=== PATIENT | male | born 1960 | race African-American/Black ===

== ENCOUNTER 2017-06-03 13:45 | Observation (INO) | payer OTHER ==
--- NOTE | 2017-06-03 14:03 | PDOC ---
History of Present Illness - General History Source: Patient Exam Limitations: No Limitations - History of Present Illness Initial Comments: 06/03/17 14:32 56 year old male, with significant past medical history of HIV( cd4 568), DM, HTN, CKD, who presents to the emergency room complaining of 2 episodes of chest pain over the past couple of days. The left sided chest pain only occurs with exertion and lasts for approximately 5-10minutes with associated tingling down the left arm. His jaw and hands became clammy and he feels nauseous. An episode of chest pain similar to this occurred when the patient was taking a walk 4 days ago. He states that he used to be able to walk a couple of miles daily, but recently he cannot walk half of a block without his chest feeling tight causing him to stop to catch his breath. He reports that his saw Dr. Munroe in October of this year and had a negative stress test. He has a follow up appointment with him on June 16. Denies fever, chills, vomiting. Denies recent illness. Denies recent travel. Denies leg swelling. Allergies: NKDA Infectious Disease: Dr. Vital Wool Carder: Dr. Munroe <Radha Hsu - Last Filed: 06/03/17 15:23> <Arely Jackson - Last Filed: 06/03/17 16:45> - General Chief Complaint: Chest Pain Stated Complaint: CHEST PAIN Time Seen by Provider: 06/03/17 13:58 Past History <Radha Hsu - Last Filed: 06/03/17 15:23> - Past Medical History Anemia: No Asthma: No Cancer: No Cardiac Disorders: No CVA: No COPD: No CHF: No Dementia: No Diabetes: No GI Disorders: Yes (GERD) Disorders: No HTN: Yes Hypercholesterolemia: No Kidney Stones: No Liver Disease: No Seizures: No Thyroid Disease: No - Surgical History Abdominal Surgery: No Appendectomy: No Cardiac Surgery: No Cholecystectomy: No Lung Surgery: No Neurologic Surgery: No Orthopedic Surgery: No - Reproductive History Testicular Surgery: No - Suicide/Smoking/Psychosocial Hx Smoking History: Current every day smoker Have you smoked in the past 12 months: Yes Number of Cigarettes Smoked Daily: 3 'Breaking Loose' booklet given: 06/12/14 Hx Alcohol Use: No Drug/Substance Use Hx: Yes (prev cocaine, mj; currently occas heroin) Substance Use Type: Heroin Hx Substance Use Treatment: Yes <Arely Jackson - Last Filed: 06/03/17 16:45> - Past Medical History Allergies/Adverse Reactions: Allergies Allergy/AdvReac Type Severity Reaction Status Date / Time No Known Allergies Allergy Verified 06/03/17 14:06 Home Medications: Ambulatory Orders Darunavir Ethanolate [Prezista] 800 mg PO DAILY #30 ml 12/16/16 Ritonavir [Norvir] 100 mg NR DAILY #30 cap 12/16/16 Dolutegravir Sodium [Tivicay] 50 mg PO DAILY #30 tablet 04/30/17 Insulin Glargine,Hum.rec.anlog [Lantus Solostar PEN (NF)] 20 units SQ BID Insulin Lispro [Humalog Kwikpen U-100] 10 - 15 unit SQ TID 06/03/17 Lisinopril [Zestril] 2 tab PO DAILY 06/03/17 Review of Systems - Review of Systems Able to Perform ROS?: Yes Comments:: 06/03/17 14:38 GENERAL/CONSTITUTIONAL: No fever or chills. No weakness. HEAD, EYES, EARS, NOSE AND THROAT: No change in vision. No ear pain or discharge. No sore throat. GASTROINTESTINAL: No nausea, vomiting, diarrhea or constipation. GENITOURINARY: No dysuria, frequency, or change in urination. CARDIOVASCULAR:+left sided chest pain, diaphoresis, tingling down left arm, SOB RESPIRATORY: No cough, wheezing, or hemoptysis. MUSCULOSKELETAL: No joint or muscle swelling or pain. No neck or back pain. SKIN: No rash NEUROLOGIC: No headache, vertigo, loss of consciousness, or change in strength/ sensation. ENDOCRINE: No increased thirst. No abnormal weight change. HEMATOLOGIC/LYMPHATIC: No anemia, easy bleeding, or history of blood clots. ALLERGIC/IMMUNOLOGIC: No hives or skin allergy. <Radha Hsu - Last Filed: 06/03/17 15:23> *Physical Exam - Vital Signs Last Vital Signs Temp Pulse Resp BP Pulse Ox 98.8 F 76 17 166/77 96 06/03/17 14:03 06/03/17 14:03 06/03/17 14:03 06/03/17 14:03 06/03/17 14:03 - Physical Exam Comments: 06/03/17 14:39 Constitutional: Awake, alert, oriented. No acute distress. Head: Normocephalic. Atraumatic Eyes: PERRL. EOMI. Conjunctivae are not pale. ENT: Mucous membranes are moist and intact. Posterior pharynx without exudates or erythema. Uvula midline. Neck: Supple. Full ROM. No lymphadenopathy. Cardiovascular: Regular rate. Regular rhythm. S1, S2 regular. Distal pulses are 2+ and symmetric. Pulmonary/Chest: No evidence of respiratory distress. Clear to auscultation bilaterally No wheezing, rales or rhonchi. Abdominal: Soft and non-distended. There is no tenderness. No rebound, guarding or rigidity. No organomegaly. No palpable masses. Good bowel sounds. Back: No CVA tenderness. Musculoskeletal: No edema. No cyanosis. No clubbing. Full range of motion in all extremities. Nocalf tenderness. Radial/pedal pulses are intact and 2+ bilaterally Skin: Skin is warm and dry. No petechiae. No purpura. Neurological: Alert and oriented to person, place, and time. Cranial nerves II -XII are grossly intact. Normal speech. Strength is grossly symmetric. No sensory deficits. Psychiatric: Good eye contact. Normal interaction, affect and behavior. <Radha Hsu - Last Filed: 06/03/17 15:23> Heart Score/ECG Review - History History: Highly suspicious - Electrocardiogram EKG: Non specific repolarization disturbance - Age Age: 45-65 - Risk Factors Risk Factors Heart Score: Yes Hx Hypercholesterolemia, Yes Hx Hypertension, Yes Hx Diabetes Based on the list above the patient has:: >/=3 risk factors or Hx atherosclerotic disease - Troponin Troponin: </= normal limit - Score Heart Score - Total: 6 - ECG Intrepretation Comment:: 06/03/17 14:02 sinus at 69, nl axis, nl interval, t wave flattening diffusely <Arely Jackson - Last Filed: 06/03/17 16:45> ED Treatment Course - LABORATORY CBC & Chemistry Diagram: 06/03/17 14:45 06/03/17 14:45 <Radha Hsu - Last Filed: 06/03/17 15:23> - LABORATORY CBC & Chemistry Diagram: 06/03/17 14:59 06/03/17 14:45 <Arely Jackson - Last Filed: 06/03/17 16:45> Medical Decision Making - Medical Decision Making 06/03/17 15:26 Dr. Ren was paged and agreed to consult. Paged Dr. Vital at 3:30 <Radha Hsu - Last Filed: 06/03/17 15:23> - Medical Decision Making 06/03/17 14:16 a/p: 56yo male with CP -concern for typical angina/acs -trops -ekg -cxr -monitor -call to Dr. Munroe -will need further eval in the hospital 06/03/17 15:[address] Cheatham who will see the patient in consult. 06/03/17 16:15 negative trop. case discussed with Dr. Greene who recommends admission to the hospitalist service. 06/03/17 16:[address] Greene, last CD4 was 316 and viral load was 20,000 06/03/17 16:44 case discussed with [employer] for hospitalist, accepts pt to obs. <Arely Jackson - Last Filed: 06/03/17 16:45> *DC/Admit/Observation/Transfer - Attestations Scribe Attestion: 06/03/17 14:39 Documentation prepared by JW Rivera, acting as durable medical equipment repairer for Arely Jackson DO <Radha Hsu - Last Filed: 06/03/17 15:23> - Discharge Dispostion Admit: Yes - Attestations Physician Attestion: 06/03/17 16:17 I, Dr. Arely Jackson, DO, attest that this document has been prepared under my direction and personally reviewed by me in its entirety. I further attest, that it accurately reflects all work, treatment, procedures and medical decision -making performed by me. <Arely Jackson - Last Filed: 06/03/17 16:45> Diagnosis at time of Disposition: Angina pectoris - Discharge Dispostion Condition at time of disposition: Fair
[2017-06-03 14:06] VITALS: BMI 31.5
[2017-06-03 15:15] LABS: ALBUMIN 3.2 g/dl (3.4-5.0); ANION GAP 10 (8-16); BILIRUBIN,TOTAL 0.1 mg/dL (0.2-1.0); CO2 23 mmol/L (21-32); CREATININE 2.2 mg/dL (0.7-1.3); GLUCOSE,RANDOM 138 mg/dL (74-106); SGPT/ALT 11 U/L (12-78); TOT PROT 7.7 g/dl (6.4-8.2)
[2017-06-03 15:18] LABS: ALK PHOS 96 U/L (45-117); CPK 160 IU/L (39-308); TROPONIN I 0.02 ng/ml (0.00-0.05)
[2017-06-03 15:19] LABS: MAGNESIUM 1.7 mg/dL (1.8-2.4); SGOT/AST 11 U/L (15-37)
[2017-06-03 15:46] LABS: BASOPHIL 0.8 % (0-2.0); EOSINOPHIL 2.5 % (0-4.5); MCH 27.2 pg (25.7-33.7); MCHC 33.5 g/dl (32.0-35.9); MEAN PLT VOLUME 7.7 fl (7.5-11.1); NEUTROPHILS 52.5 % (42.8-82.8); PLATELET COUNT 232 K/MM3 (134-434); RDW 15.9 % (11.9-15.9); WHITE BLOOD COUNT 9.9 K/mm3 (4.0-10.0)
[2017-06-03 16:42] LABS: INR 1.03 (0.82-1.09); PROTHROMBIN TIME (PATIENT) 11.6 SEC (9.98-11.88)
[2017-06-03 16:45] LABS: ACTIVATED PTT 29.7 SECONDS (26.9-34.4)
--- NOTE | 2017-06-03 17:01 | CONSULT ---
Consultation: REQUESTING PROVIDER: CONSULT REQUEST: We have been asked to medically evaluate this patient for ( specify). HISTORY OF PRESENT ILLNESS: 56 year old male, with significant past medical history of HIV( cd4 568), DM, HTN, CKD, who presents to the emergency room complaining of 2 episodes of chest pain over the past couple of days. The left sided chest pain only occurs with exertion and lasts for approximately 5-10minutes with associated tingling down the left arm. His jaw and hands became clammy and he feels nauseous. An episode of chest pain similar to this occurred when the patient was taking a walk 4 days ago. He states that he used to be able to walk a couple of miles daily, but recently he cannot walk half of a block without his chest feeling tight causing him to stop to catch his breath. He reports that his saw Dr. Munroe in October of this year and had a negative stress test. He has a follow up appointment with him on June 16. Denies fever, chills, vomiting. Denies recent illness. Denies recent travel. Denies leg swelling. Allergies: NKDA Infectious Disease: Dr. Vital Senior Planning Analyst: Dr. Munroe REVIEW OF SYSTEMS: CONSTITUTIONAL: Absent: fever, chills, diaphoresis, generalized weakness, malaise, loss of appetite, weight change HEENT: Absent: rhinorrhea, nasal congestion, throat pain, throat swelling, difficulty swallowing, mouth swelling, ear pain, eye pain, visual changes CARDIOVASCULAR: Absent: chest pain, syncope, palpitations, irregular heart rate, lightheadedness , peripheral edema RESPIRATORY: Absent: cough, shortness of breath, dyspnea with exertion, orthopnea, wheezing, stridor, hemoptysis GASTROINTESTINAL: Absent: abdominal pain, abdominal distension, nausea, vomiting, diarrhea, constipation, melena, hematochezia GENITOURINARY: Absent: dysuria, frequency, urgency, hesitancy, hematuria, flank pain, genital pain MUSCULOSKELETAL: Absent: myalgia, arthralgia, joint swelling, back pain, neck pain SKIN: Absent: rash, itching, pallor HEMATOLOGIC/IMMUNOLOGIC: Absent: easy bleeding, easy bruising, lymphadenopathy, frequent infections ENDOCRINE: Absent: unexplained weight gain, unexplained weight loss, heat intolerance, cold intolerance NEUROLOGIC: Absent: headache, focal weakness or paresthesias, dizziness, unsteady gait, seizure, mental status changes, bladder or bowel incontinence PSYCHIATRIC: Absent: anxiety, depression, suicidal or homicidal ideation, hallucinations. PHYSICAL EXAMINATION Vital Signs - 24 hr 06/03/17 06/03/17 14:03 15:33 Temperature 98.8 F Pulse Rate 76 Pulse Rate [ 68 Apical] Respiratory 17 17 Rate Blood Pressure 166/77 Blood Pressure 144/77 [Right Arm] O2 Sat by Pulse 96 98 Oximetry (%) GENERAL: Awake, alert, and fully oriented, in no acute distress. HEAD: Normal with no signs of trauma. EYES: , sclera anicteric, conjunctiva clear. No lid lag. EARS, NOSE, THROAT: Moist mucous membranes. LUNGS: Breath sounds equal, clear to auscultation bilaterally. No wheezes, and no crackles. No accessory muscle use. HEART: Regular rate and rhythm, normal S1 and S2 without murmur, rub or gallop. ABDOMEN: Soft, nontender, not distended, normoactive bowel sounds, no guarding, no rebound, no masses. LOWER EXTREMITIES: 2+ pulses, warm, well-perfused. No calf tenderness. +1 peripheral edema. NEUROLOGICAL: good mentation PSYCHIATRIC: Cooperative. Good eye contact. Appropriate mood and affect. SKIN: Warm, dry, no rashes or lesions noted. Laboratory Results - last 24 hr 06/03/17 06/03/17 06/03/17 14:45 14:45 14:45 WBC Cancelled Corrected WBC (auto) Cancelled RBC Cancelled Hgb Cancelled Hct Cancelled MCV Cancelled MCH Cancelled MCHC Cancelled RDW Cancelled Plt Count Cancelled MPV Cancelled Neutrophils % Cancelled Lymphocytes % Cancelled Monocytes % Cancelled Eosinophils % Cancelled Basophils % Cancelled Platelet Estimate Cancelled Platelet Comment Cancelled RBC Morphology Cancelled PT with INR Cancelled INR Cancelled PTT (Actin FS) Cancelled Sodium 141 Potassium 4.3 D Chloride 108 H Carbon Dioxide 23 Anion Gap 10 BUN 35 H D Creatinine 2.2 H Creat Clearance w eGFR 31.01 Random Glucose 138 H Calcium 8.0 L Magnesium 1.7 L Total Bilirubin 0.1 L D AST 11 L ALT 11 L D Alkaline Phosphatase 96 Creatine Kinase 160 Creatine Kinase Index 0.7 CK-MB (CK-2) 1.201 Troponin I 0.02 B-Natriuretic Peptide Total Protein 7.7 Albumin 3.2 L Lipase 64 L 10/06/03/17 06/03/17 14:45 14:59 16:10 WBC 9.9 Corrected WBC (auto) RBC 4.30 Hgb 11.7 Hct 34.8 L MCV 81.0 MCH 27.2 MCHC 33.5 RDW 15.9 Plt Count 232 MPV 7.7 Neutrophils % 52.5 Lymphocytes % 36.2 Monocytes % 8.0 Eosinophils % 2.5 Basophils % 0.8 Platelet Estimate Platelet Comment RBC Morphology PT with INR 11.60 INR 1.03 PTT (Actin FS) 29.7 Sodium Potassium Chloride Carbon Dioxide Anion Gap BUN Creatinine Creat Clearance w eGFR Random Glucose Calcium Magnesium Total Bilirubin AST ALT Alkaline Phosphatase Creatine Kinase Creatine Kinase Index CK-MB (CK-2) Troponin I B-Natriuretic Peptide 5507.34 H Total Protein Albumin Lipase CBC, BMP 06/03/17 14:59 06/03/17 14:45 ASSESSMENT/PLAN: HTN HIV DM CKD ACD: heart score of 6, follow primary team recommendations HIV + will continue home meds (patient will bring his home meds) Dispo: We will continue to follow the patient. Thank you for this consultative opportunity.
--- NOTE | 2017-06-03 17:22 | HP ---
CHIEF COMPLAINT: chest pain PCP: Dr. Vital HISTORY OF PRESENT ILLNESS: This is a 56 year old male with PMHx of CKD, HIV (on haart therapy), HTN, DM, who presented to the ED with 1 year of gas pain and heartburn which has worsened over the past 2 months. The patient reports that he has had heart burn for 1 year which resolves with Tums and rest. He then states in January he started taking Harvoni and noticed generalized edema. He completed the course and the edema has improved. He states about 2 months ago he started having left intermitted chest pain with left arm tingling (no numbness), and right jaw pain. He states the jaw pain was so severe that he would have to remove his dentures. He states that he gets the chest pain daily and that he needs to stop and rest for it to go away. He denies any dizziness, lightheadedness, headache, palpitations, orthopnea. He reports a 30lb weight gain in 2 months. ER course was notable for: (1) Cr 2.2, Mg 1.7 (2) BNP 5507 (3) Chest x-ray with no acute pathology. Heart size normal Recent Travel: PAST MEDICAL HISTORY: As above PAST SURGICAL HISTORY: Denies Social History: Smokin-4 cigarettes/day Alcohol: Denies Drugs: Heroin, last use 5 months ago (sniffing, has not had IV heroin use since he was "a teenager") Family History: Allergies No Known Allergies Allergy (Verified 06/03/17 14:06) HOME MEDICATIONS: Home Medications Medication Instructions Recorded Darunavir Ethanolate [Prezista] 800 mg PO DAILY #30 ml 12/16/16 Ritonavir [Norvir] 100 mg NR DAILY #30 cap 12/16/16 Dolutegravir Sodium [Tivicay] 50 mg PO DAILY #30 tablet 04/30/17 Insulin Glargine,Hum.rec.anlog 20 units SQ BID 06/03/17 [Lantus Solostar PEN (NF)] Insulin Lispro [Humalog Kwikpen 10 - 15 unit SQ TID 06/03/17 U-100] Lisinopril [Zestril] 2 tab PO DAILY 06/03/17 REVIEW OF SYSTEMS CONSTITUTIONAL: Absent: fever, chills, diaphoresis, generalized weakness, malaise, loss of appetite, weight change HEENT: Absent: rhinorrhea, nasal congestion, throat pain, throat swelling, difficulty swallowing, mouth swelling, ear pain, eye pain, visual changes CARDIOVASCULAR: Chest pain x2 months ago. Intermittent, radiating to left arm and right jaw. Absent: syncope, palpitations, irregular heart rate, lightheadedness, peripheral edema RESPIRATORY: Absent: cough, shortness of breath, orthopnea, wheezing, stridor, hemoptysis GASTROINTESTINAL:Absent: abdominal pain, abdominal distension, nausea, vomiting , diarrhea, constipation, melena, hematochezia GENITOURINARY: Absent: dysuria, frequency, urgency, hesitancy, hematuria, flank pain, genital pain MUSCULOSKELETAL: Absent: myalgia, arthralgia, joint swelling, back pain, neck pain SKIN: Absent: rash, itching, pallor HEMATOLOGIC/IMMUNOLOGIC: Absent: easy bleeding, easy bruising, lymphadenopathy, frequent infections ENDOCRINE: 30 lb weight gain in 2 months. Absent: unexplained weight loss, heat intolerance, cold intolerance NEUROLOGIC: Absent: headache, focal weakness or paresthesias, dizziness, unsteady gait, seizure, mental status changes, bladder or bowel incontinence PSYCHIATRIC: Absent: anxiety, depression, suicidal or homicidal ideation, hallucinations. PHYSICAL EXAMINATION Vital Signs - 24 hr 06/03/17 06/03/17 14:03 15:33 Temperature 98.8 F Pulse Rate 76 Pulse Rate [ 68 Apical] Respiratory 17 17 Rate Blood Pressure 166/77 Blood Pressure 144/77 [Right Arm] O2 Sat by Pulse 96 98 Oximetry (%) GENERAL: Awake, alert, and fully oriented, in no acute distress. HEAD: Normal with no signs of trauma. EYES: Pupils equal, round and reactive to light, extraocular movements intact, sclera anicteric, conjunctiva clear. No lid lag. EARS, NOSE, THROAT: Ears normal, nares patent, oropharynx clear without exudates. Moist mucous membranes. NECK: Normal range of motion, supple without lymphadenopathy, or masses. LUNGS: Breath sounds equal, clear to auscultation bilaterally. No wheezes, and no crackles. No accessory muscle use. HEART: Regular rate and rhythm, normal S1 and S2 without murmur, rub or gallop. ABDOMEN: Soft, non-tender, not-distended, normoactive bowel sounds MUSCULOSKELETAL: Normal range of motion at all joints. No bony deformities or tenderness. No CVA tenderness. UPPER EXTREMITIES: 2+ pulses, warm, well-perfused. No cyanosis. No clubbing. No peripheral edema. LOWER EXTREMITIES: Multiple 2-4 cm scabs (patient reports getting hit by rocks from his acetone button paster). 2+ pulses, warm, well-perfused. No calf tenderness. No peripheral edema. NEUROLOGICAL: Cranial nerves II-XII intact. Normal speech. Normal gait. PSYCHIATRIC: Cooperative. Good eye contact. Appropriate mood and affect. SKIN: Warm, dry, normal turgor, no rashes or lesions noted, normal capillary refill. CBCD WBC 9.9 K/mm3 (4.0-10.0) 06/03/17 14:59 RBC 4.30 M/mm3 (4.00-5.60) 06/03/17 14:59 Hgb 11.7 GM/dL (11.7-16.9) 06/03/17 14:59 Hct 34.8 % (35.4-49) L 06/03/17 14:59 MCV 81.0 fl (80-96) 06/03/17 14:59 MCHC 33.5 g/dl (32.0-35.9) 06/03/17 14:59 RDW 15.9 % (11.9-15.9) 06/03/17 14:59 Plt Count 232 K/MM3 (134-434) 06/03/17 14:59 MPV 7.7 fl (7.5-11.1) 06/03/17 14:59 CMP Sodium 141 mmol/L (136-145) 06/03/17 14:45 Potassium 4.3 mmol/L (3.5-5.1) D 06/03/17 14:45 Chloride 108 mmol/L (98-107) H 06/03/17 14:45 Carbon Dioxide 23 mmol/L (21-32) 06/03/17 14:45 Anion Gap 10 (8-16) 06/03/17 14:45 BUN 35 mg/dL (7-18) H D 06/03/17 14:45 Creatinine 2.2 mg/dL (0.7-1.3) H 06/03/17 14:45 Creat Clearance w eGFR 31.01 (>60) 06/03/17 14:45 Random Glucose 138 mg/dL (74-106) H 06/03/17 14:45 Calcium 8.0 mg/dL (8.5-10.1) L 06/03/17 14:45 Total Bilirubin 0.1 mg/dL (0.2-1.0) L D 06/03/17 14:45 AST 11 U/L (15-37) L 06/03/17 14:45 ALT 11 U/L (12-78) L D 06/03/17 14:45 Alkaline Phosphatase 96 U/L (45-117) 06/03/17 14:45 Total Protein 7.7 g/dl (6.4-8.2) 06/03/17 14:45 Albumin 3.2 g/dl (3.4-5.0) L 06/03/17 14:45 CARDIAC ENZYMES Creatine Kinase 160 IU/L (39-308) 06/03/17 14:45 Troponin I 0.02 ng/ml (0.00-0.05) 06/03/17 14:45 Assessment: This is a 56 year old male with PMHx of CKD, HIV (on haart therapy) , HTN, DM, who presented to the ED with 1 year of gas pain and heartburn which has worsened over the past 2 months. Plan: 1) Cardiology: Chest pain - Duration of chest pain 1 year, with increase in symptoms (L arm tingling and right jaw pain) starting 2 months ago - Trop x1 negative, f/u 2 more - EKG reviewed - F/u ECHO - F/u cardiology consult HTN - Continue Lisinopril Possible new onset diastolic heart failure - Increase in weight 30lbs in 2 months with lower extremity edema - Elevated BNP - Chest x-ray with normal size heart - F/u ECHO 2) : CKD - At baseline 3) ID: HIV - Continue HAART HCV - Completed course of Harvoni 04/2017 4) Endocrine: DM - BGM ACHS - Glargine 20u sq bid - Humalog 10u sq tid 5) F/E/N: - Monitor electrolytes - Sodium controlled, diabetic diet 6) Prophylaxis: - Heparin 5,000u sq tid 7) Dispo: - Once condition improves CODE STATUS: FULL CODE Visit type - Emergency Visit Emergency Visit: Yes ED Registration Date: 06/03/17 Care time: The patient presented to the Emergency Department on the above date and was hospitalized for further evaluation of their emergent condition. - New Patient This patient is new to me today: Yes Date on this admission: 06/03/17 - Critical Care Critical Care patient: No
--- NOTE | 2017-06-03 17:39 | PN ---
Teaching Attending Note Name of Resident: Leobardo Lewis ATTENDING PHYSICIAN STATEMENT I saw and evaluated the patient. I reviewed the resident's note and discussed the case with the resident. I agree with the resident's findings and plan as documented. SUBJECTIVE: sent to ED from [facility] with exertional CP asked to see for HIV disease currently pain free he is still smoking 4 cig a day OBJECTIVE: Vital Signs Period Temp Pulse Resp BP Sys/[place] Pulse Ox Last 24 Hr 98.8 F 68-76 17-17 144-166/77-77 96-98 cor-rrr lungs clear abd soft,nt ext tracke edema CBC, BMP 06/03/17 14:59 06/03/17 14:45 ASSESSMENT AND PLAN: chest pain/cad- per cardiology stable HIV- cd4 568, vl 50 on prezista/norvir/tivicay- he took his meds this am , familly will bring his meds in for tomorrow CKD hx hep C
[2017-06-03] MEDS ORDERED: MAGNESIUM OXIDE 400 MG TABLET (FP) PO ONE (18:11)
[2017-06-03] MEDS ORDERED: MAGNESIUM OXIDE 400 MG TABLET (FP) ONE (19:20)
[2017-06-03 21:26] LABS: TROPONIN I 0.02 ng/ml (0.00-0.05)
[2017-06-03] MEDS ORDERED: HEPARIN NA (PORCINE) 5,000 UNITS/ML 1ML VIAL SQ SCH (22:00)
[2017-06-03] MEDS ORDERED: INSULIN LISPRO 10 UNIT SQ SCH (22:00)
[2017-06-03] MEDS ORDERED: PATIENT'S OWN MEDICATION (NON-FORMULARY) (Insulin Glargine,Hum.Rec.Anlog 20 UNITS) SQ SCH (22:00)
[2017-06-03] MEDS ORDERED: HEPARIN NA (PORCINE) 5,000 UNITS/ML 1ML VIAL ONE (23:04)
[2017-06-03] MEDS: INSULIN DETEMIR 100 UNITS/ML MDV SQ SCH ×2 (23:13→23:16)
[2017-06-04] MEDS ORDERED: INSULIN (NOVOLOG) ASPART 100 UNITS/ML 10ML VIAL SQ SCH (07:00)
[2017-06-04 07:50] LABS: MCH 26.7 pg (25.7-33.7); MEAN PLT VOLUME 7.4 fl (7.5-11.1); PLATELET COUNT 217 K/MM3 (134-434); RDW 16.1 % (11.9-15.9); WHITE BLOOD COUNT 9.3 K/mm3 (4.0-10.0)
[2017-06-04] MEDS ORDERED: RITONAVIR 100 MG TABLET PO SCH (08:00)
[2017-06-04] MEDS ORDERED: DARUNAVIR ETHANOLATE 800 MG TAB PO SCH (08:00)
[2017-06-04 08:49] LABS: ALK PHOS 92 U/L (45-117); ANION GAP 5 (8-16); BILIRUBIN,TOTAL 0.2 mg/dL (0.2-1.0); CHOLESTEROL 196 mg/dL (50-200); CO2 25 mmol/L (21-32); GLUCOSE,RANDOM 157 mg/dL (74-106); MAGNESIUM 1.8 mg/dL (1.8-2.4); PHOSPHOROUS 3.4 mg/dL (2.5-4.9); SGOT/AST 10 U/L (15-37); SGPT/ALT 14 U/L (12-78); THYROID STIMULATING HORMONE 0.94 uIU/ml (0.358-3.74); TOT PROT 7.1 g/dl (6.4-8.2)
[2017-06-04] MEDS ORDERED: LISINOPRIL 10 MG TABLET (FP) PO SCH (10:00)
[2017-06-04] MEDS ORDERED: PATIENT'S OWN MEDICATION (NON-FORMULARY) (Ritonavir [Norvir] 100 MG) NR SCH (10:00)
[2017-06-04] MEDS ORDERED: DOLUTEGRAVIR SODIUM 50 MG TABLET PO SCH (10:00)
[2017-06-04] MEDS ORDERED: DARUNAVIR ETHANOLATE 100 MG/ML BULK BOTTLE PO SCH (10:00)
[2017-06-04 10:18] LABS: CPK 124 IU/L (39-308); TROPONIN I 0.02 ng/ml (0.00-0.05)
--- NOTE | 2017-06-04 10:37 | EKG ---
Test Reason : Blood Pressure : / mmHG Vent. Rate : 069 BPM Atrial Rate : 069 BPM P-R Int : 156 ms QRS Dur : 086 ms QT Int : 460 ms P-R-T Axes : 076 020 021 degrees QTc Int : 492 ms NORMAL SINUS RHYTHM POSSIBLE LEFT ATRIAL ENLARGEMENT NONSPECIFIC T WAVE ABNORMALITY PROLONGED QT ABNORMAL ECG WHEN COMPARED WITH ECG OF 03-JUN-2017 11:52, NO SIGNIFICANT CHANGE WAS FOUND Confirmed by MAEVE ROJAS, HERLINDA ([id number]) on 06/04/2017 10:37:07 AM Referred By: Confirmed By:HERLINDA MCFARLANE MD
--- NOTE | 2017-06-04 13:54 | CON.CARD ---
Cardiology Consult (text) - Consultation Consultation Note: cc: cp hpi: 56 m hx hiv, dm, htn, ckd here with cp. Pain is left side of chest, burning. Happens with exertion usually. Has had 2 episodes past week or so but has also had these sxs earlier this year as well. Mild sob/fatigue when walking up hills. No palps, dizzy, loc, pnd, orthopnea, le edema. Has seen me in office for cardio eval earlier this year. pmh: per hpi psh: nc social: +tob, +occ heroine, ex cocaine fam: no premature cad, scd ros: per hpi; no nvd, fever, cough, nasal congestion, wt loss, gib, dysuria, hematuria, mcclure, vision changes meds: Home Medications Medication Instructions Recorded Darunavir Ethanolate [Prezista] 800 mg PO DAILY #30 ml 12/16/16 Ritonavir [Norvir] 100 mg NR DAILY #30 cap 12/16/16 Dolutegravir Sodium [Tivicay] 50 mg PO DAILY #30 tablet 04/30/17 Insulin Glargine,Hum.rec.anlog 20 units SQ BID 06/03/17 [Lantus Solostar PEN (NF)] Insulin Lispro [Humalog Kwikpen 10 - 15 unit SQ TID 06/03/17 U-100] Lisinopril [Zestril] 2 tab PO DAILY 06/03/17 pe: Vital Signs Period Temp Pulse Resp BP Sys/[place] Pulse Ox Last 24 Hr 98.2 F-98.7 F 66-86 14-19 144-152/74-93 95-98 nad no jvd rrr s1s2 no mrg cta bl nl eff aaox3 no le e/c/c no jaundice diaphoresis +dp pt no carotid bruits abd nt nd pos bs Laboratory Last Values WBC 9.3 K/mm3 (4.0-10.0) 06/04/17 06:34 Corrected WBC (auto) Cancelled 06/03/17 14:45 RBC 4.25 M/mm3 (4.00-5.60) 06/04/17 06:34 Hgb 11.3 GM/dL (11.7-16.9) L 06/04/17 06:34 Hct 34.4 % (35.4-49) L 06/04/17 06:34 MCV 81.0 fl (80-96) 06/04/17 06:34 MCH 26.7 pg (25.7-33.7) 06/04/17 06:34 MCHC 33.0 g/dl (32.0-35.9) 06/04/17 06:34 RDW 16.1 % (11.9-15.9) H 06/04/17 06:34 Plt Count 217 K/MM3 (134-434) 06/04/17 06:34 MPV 7.4 fl (7.5-11.1) L 06/04/17 06:34 Neutrophils % 52.5 % (42.8-82.8) 06/03/17 14:59 Lymphocytes % 36.2 % (8-40) 06/03/17 14:59 Monocytes % 8.0 % (3.8-10.2) 06/03/17 14:59 Eosinophils % 2.5 % (0-4.5) 06/03/17 14:59 Basophils % 0.8 % (0-2.0) 06/03/17 14:59 Platelet Estimate Cancelled 06/03/17 14:45 Platelet Comment Cancelled 06/03/17 14:45 Platelet Comment Cancelled 06/03/17 14:45 RBC Morphology Cancelled 06/03/17 14:45 PT with INR 11.60 SEC (9.98-11.88) 06/03/17 16:10 INR 1.03 (0.82-1.09) 06/03/17 16:10 PTT (Actin FS) 29.7 SECONDS (26.9-34.4) 06/03/17 16:10 Sodium 139 mmol/L (136-145) 06/04/17 06:34 Potassium 4.1 mmol/L (3.5-5.1) 06/04/17 06:34 Chloride 109 mmol/L (98-107) H 06/04/17 06:34 Carbon Dioxide 25 mmol/L (21-32) 06/04/17 06:34 Anion Gap 5 (8-16) L 06/04/17 06:34 BUN 34 mg/dL (7-18) H 06/04/17 06:34 Creatinine 2.0 mg/dL (0.7-1.3) H 06/04/17 06:34 Creat Clearance w eGFR 34.61 (>60) 06/04/17 06:34 Random Glucose 157 mg/dL (74-106) H 06/04/17 06:34 Hemoglobin A1c % 9.1 % (4.8-6.0) H D 06/04/17 06:00 Calcium 8.0 mg/dL (8.5-10.1) L 06/04/17 06:34 Phosphorus 3.4 mg/dL (2.5-4.9) 06/04/17 06:34 Magnesium 1.8 mg/dL (1.8-2.4) 06/04/17 06:34 Total Bilirubin 0.2 mg/dL (0.2-1.0) D 06/04/17 06:34 AST 10 U/L (15-37) L 06/04/17 06:34 ALT 14 U/L (12-78) D 06/04/17 06:34 Alkaline Phosphatase 92 U/L (45-117) 06/04/17 06:34 Creatine Kinase 124 IU/L (39-308) 06/04/17 06:34 Creatine Kinase Index 0.7 % (0.0-5.0) 06/03/17 14:45 CK-MB (CK-2) 1.201 ng/mL (0.5-3.6) 06/03/17 14:45 Troponin I 0.02 ng/ml (0.00-0.05) 06/04/17 06:34 B-Natriuretic Peptide 5507.34 pg/ml (5-125) H 06/03/17 14:45 Total Protein 7.1 g/dl (6.4-8.2) 06/04/17 06:34 Albumin 3.0 g/dl (3.4-5.0) L 06/04/17 06:34 Triglycerides 467 mg/dL (35-160) H D 06/04/17 06:34 Cholesterol 196 mg/dL (50-200) D 06/04/17 06:34 Total LDL Cholesterol 95 mg/dL (5-100) D 06/04/17 06:34 HDL Cholesterol 28 mg/dL (40-60) L D 06/04/17 06:34 Lipase 64 U/L (73-393) L 06/03/17 14:45 TSH 0.94 uIU/ml (0.358-3.74) D 06/04/17 06:34 cxr: clear lungs ecg 06/03/17: sr, nl intervals, nonspec tw changes, no st changes mibi 05/2017: no ischemia, mod lve, lvef 33% echo 05/2017: mod lve, mild dec lvef, global hk, nl rv, mild mr, mild lae, a/p: 56 m hx hiv, dm, htn, ckd here with cp. cp: -ce's neg x3, no ischemic ecg changes, no signs acs -nuclear stress test today shows no ischemia htn: -cont amanda-i ckd: -cr at baseline chronic syst chf: -echo shows mildly reduced lvef -no signs chf -cont amanda-i -outpt f/u tob use, drug use: -cessation discussed
--- NOTE | 2017-06-04 14:35 | DS ---
Physical Examination Vital Signs: Vital Signs Temperature 98.2 F 06/03/17 20:58 Pulse Rate 77 06/04/17 13:26 Respiratory Rate 16 06/04/17 13:26 Blood Pressure 152/93 06/04/17 13:26 O2 Sat by Pulse Oximetry (%) 97 06/04/17 13:26 Labs: CBC, BMP 06/04/17 06:34 06/04/17 06:34 Discharge Summary Reason For Visit: CHEST PAIN Current Active Problems Angina pectoris (Acute) Chest pain (Acute) Chronic kidney disease (Chronic) Diabetes 1.5, managed as type 2 (Chronic) HIV (human immunodeficiency virus infection) (Chronic) HTN (hypertension) (Chronic 06/13/14) Condition: Improved - Instructions Diet, Activity, Other Instructions: Please return to the ED with new, persistent, or worsening symptoms. Please follow-up with providers as indicated. Referrals: Sameer Vital MD [Staff Physician] - (Please follow-up with infectious disease within 1 week. ) Valeriano Munroe MD [Staff Physician] - (Please follow-up with cardiology, Dr. Munroe, within 1 week for further management of your chronic systolic heart failure) Juventino Campuzano MD [Staff Physician] - (Please follow-up with nephrology for management of your chronic kidney disease) Disposition: HOME - Home Medications Comprehensive Discharge Medication List: Ambulatory Orders Darunavir Ethanolate [Prezista] 800 mg PO DAILY #30 ml 12/16/16 Dolutegravir Sodium [Tivicay] 50 mg PO DAILY #30 tablet 04/30/17 Insulin Glargine,Hum.rec.anlog [Lantus Solostar PEN -] 20 units SQ BID 06/03/17 Insulin Lispro [Humalog Kwikpen U-100] 10 - 15 unit SQ TID 06/03/17 Lisinopril [Zestril] 2 tab PO DAILY 06/03/17 Ritonavir [Norvir] 100 mg PO DAILY #30 cap 06/04/17
[2017-06-04 14:53] VITALS: BP 148/89; PULSE 72; TEMP 98.9
== END 2017-06-04 15:15 | disposition home or self-care (01) ==
LOC: JER 13:45 → JERBED 16:45 → UNDODISOB 06-04 15:15
PROVIDERS: ADMIT Internal Medicine; ATTEND Registered Nurse
PROC: 3E013VG Introduction of Insulin into Subcutaneous Tissue, Percutaneous Approach (ICD-10-PCS; principal; 2017-06-03)
PROC: 3E013GC Introduction of Other Therapeutic Substance into Subcutaneous Tissue, Percutaneous Approach (ICD-10-PCS; 2017-06-03)
DX: I20.8 Other forms of angina pectoris (principal); R07.9 Chest pain, unspecified; I12.9 Hypertensive chronic kidney disease with stage 1 through stage 4 chronic kidney disease, or unspecified chronic kidney disease; E11.22 Type 2 diabetes mellitus with diabetic chronic kidney disease; F17.210 Nicotine dependence, cigarettes, uncomplicated; N18.9 Chronic kidney disease, unspecified; Z79.4 Long term (current) use of insulin; Z21 Asymptomatic human immunodeficiency virus [HIV] infection status; K21.9 Gastro-esophageal reflux disease without esophagitis
CPT/HCPCS: 36415; 71010-TC; 78452-TC; 80053; 80061; 82550; 82553; 83036; 83690; 83721; 83735; 83880; 84100; 84443; 84484; 85025; 85027; 85610; 85730; 93005; 93010; 93017; 93306-TC; 96372; 99285-25; A9502; G0378; G0463-25; J1644

== ENCOUNTER 2017-07-05 00:31 | Inpatient (IN) | payer OTHER ==
--- NOTE | 2017-07-05 00:55 | PDOC ---
Attending Attestation - Resident Resident Name: Grecia Shirley - ED Attending Attestation I have performed the following: I have examined & evaluated the patient, The case was reviewed & discussed with the resident, I agree w/resident's findings & plan, Exceptions are as noted - HPI HPI: 07/05/17 03:12 The patient is a 56 year old male with history of hypertension, hyperlipidemia, DM, CKD, HIV on HAART, CHF w EF 49.5%, brought in by EMS for respiratory distress. Per EMS and the patient's friend at bedside, the patient had been experiencing worsening shortness of breath and SAMUELS with associated wheezing for the past few days. Today his breathing became significantly worse, prompting him to activate EMS. Per EMS, the patient's condition acutely worsened en route to the hospital. He was noted to have bilateral wheezes and poor aeration. However, attempts to place pt on CPAP en route were unsuccessful due to pt becoming agitated and altered. Upon arrival to ER, pt was obtunded, breathing agonally. He became unresponsive shortly after being transferred to [facility]. Pulse could not be palpated, and chest compressions were initiated. Pt was resuscitated per ACLS protocol for approximately 5 minutes, receiving epi x 2, bicarb x 2. First pulse check revealed PEA arrest. During this time, pt was intubated by DL, with placement of 7.5 ETT. Confirmation with direct visualization, color capnography, and auscultation. Second pulse check showed organized rhythm on monitor with palpable carotid pulses. EKG done at this time revealed atrial fibrillation. No ST elevations or depressions. Pt was placed on ventilator and given nebulizers and steroids. CXR was obtained, revealing diffuse patchy infiltrates. Vitals at this time showed hypertension with BP 160s systolic, HR 80s, satting 100% on ventilator. Pt was given lasix 40mg IV for pulmonary edema. PEEP 10 on vent. Nitro gtt held due to tenuous BP. - Physicial Exam PE: 07/05/17 03:18 "GENERAL: Unresponsive. HEAD: No signs of trauma EYES: PERRLA, sclera anicteric, conjunctiva clear ENT: Auricles normal inspection, nares patent, oropharynx clear without exudates. Moist mucosa NECK: Nontender, no stepoffs, Normal ROM, supple, no lymphadenopathy, JVD, or masses LUNGS: +B/l wheezes, rales. HEART: Regular rate and rhythm, normal S1 and S2, no murmurs, rubs or gallops ABDOMEN: Soft, normoactive bowel sounds. No guarding, no rebound. No masses EXTREMITIES: Normal range of motion, no edema. No clubbing or cyanosis. No cords, erythema, or tenderness NEUROLOGICAL: Unable to assess secondary to nonresponsiveness. SKIN: Warm, Dry, normal turgor, no rashes or lesions noted. " - Medical Decision Making 07/05/17 03:18 56 M who presents to ER with respiratory failure followed by cardiac arrest. Exam and chest X ray suggestive of acute pulmonary edema as etiology of respiratory failure. Also consider infectious process such as multifocal PNA or COPD exacerbation, as pt is daily smoker. - Labs - CXR - Trend gases on vent - Diuresis, PEEP, nitro gtt PRN for pulm edema - Abx for empiric PNA coverage - Hyperventilation for acidosis - propofol gtt for sedation - Admit ICU
[2017-07-05 01:15] LABS: MCH 27.4 pg (25.7-33.7); MEAN CELL VOLUME 88.6 fl (80-96); MEAN PLT VOLUME 7.9 fl (7.5-11.1); PLATELET COUNT 277 K/MM3 (134-434); RDW 16.8 % (11.9-15.9); WHITE BLOOD COUNT 26.4 K/mm3 (4.0-10.0)
[2017-07-05] MEDS ORDERED: ACETAMINOPHEN 325 MG TABLET (FP) ONE (01:15)
[2017-07-05] MEDS ORDERED: PROPOFOL 1,000,000 MCG/100 ML VIAL ONE ×3 (01:23→15:03)
[2017-07-05 01:27] LABS: VENOUS BLOOD GAS HCO3 15.6 meq/L (19-25)
[2017-07-05 01:28] LABS: VENOUS PH 6.98 (7.32-7.42)
[2017-07-05 01:28] LABS: INR 1.07 (0.82-1.09); PROTHROMBIN TIME (PATIENT) 12.1 SEC (9.98-11.88)
[2017-07-05 01:30] LABS: ACTIVATED PTT 20.4 SECONDS (26.9-34.4)
--- NOTE | 2017-07-05 01:31 | PDOC ---
History of Present Illness - General Stated Complaint: RESPIRATORY DISTRESS Time Seen by Provider: 07/05/17 00:47 History Source: EMS, Family Exam Limitations: Clinical Condition - History of Present Illness Initial Comments: This is a 56 YOM with h/o HIV on HAART, DM, CKD, and HTN who was BIBA for respiratory distress and who goes into cardiopulmonary arrest shortly after arrival to the ED. On speaking with his family members, they note that he has been short of breath for the past couple of months and this was particularly bad today, worsening throughout the day, with dyspnea on exertion and wheezing. EMS attempted to put him on BiPAP en route but the patient was agitated and this was not successful. Past History - Past Medical History Allergies/Adverse Reactions: Allergies Allergy/AdvReac Type Severity Reaction Status Date / Time No Known Allergies Allergy Verified 07/05/17 01:49 Review of Systems - Review of Systems Able to Perform ROS?: No (clinical acuity) *Physical Exam - Vital Signs Last Vital Signs Temp Pulse Resp BP Pulse Ox 98.2 F 82 20 152/87 100 07/05/17 00:31 07/05/17 02:17 07/05/17 02:31 07/05/17 02:17 07/05/17 02:17 - Physical Exam General Appearance: Yes: Nourished, Severe Distress, Other (initially patient struggling to breath, subsequently patient unconscious and not breathing) HEENT: positive: EOMI Neck: positive: Trachea midline, Supple Respiratory/Chest: positive: Decreased Breath Sounds, Crackles, Wheezing, Other (severe respiratory distress) Cardiovascular: positive: Other (pulses not palpable after patient loses consciousness) Gastrointestinal/Abdominal: positive: Soft, Protuberent Male Genitalia: positive: other (left groin with verrucous lesion to inguinal crease) Musculoskeletal: positive: Normal Inspection Extremity: positive: Normal Capillary Refill, Normal Inspection. negative: Normal Range of Motion, Cyanosis Integumentary: positive: Normal Color, Dry, Warm Neurologic: negative: Alert, Normal Response, Responsive ED Treatment Course - LABORATORY CBC & Chemistry Diagram: 07/05/17 00:45 07/05/17 00:45 - ADDITIONAL ORDERS Additional order review: Laboratory Results 07/05/17 07/05/17 07/05/17 02:10 01:00 00:45 WBC RBC Hgb Hct MCV MCH MCHC RDW Plt Count MPV Neutrophils % Lymphocytes % PT with INR INR PTT (Actin FS) VBG pH 6.98 L* POC VBG pCO2 69.6 H* POC VBG pO2 49.8 H Mixed VBG HCO3 15.6 L Sodium Potassium Chloride Carbon Dioxide Anion Gap BUN Creatinine Creat Clearance w eGFR Random Glucose Calcium Phosphorus Magnesium Total Bilirubin AST ALT Alkaline Phosphatase Creatine Kinase Troponin I B-Natriuretic Peptide 12326.37 H Total Protein Albumin Urine Color Ltyellow Urine Appearance Slcloudy Urine pH 6.0 Ur Specific [place] 1.016 Urine Protein 3+ H Urine Glucose (UA) 1+ H Urine Ketones Negative Urine Blood 1+ H Urine Nitrite Negative Urine Bilirubin Negative Urine Urobilinogen Negative Urine WBC (Auto) 3 Urine RBC (Auto) 14 Hyaline Casts 1 Urine Mucus Rare 07/05/17 07/05/17 07/05/17 00:45 00:45 00:45 WBC 26.4 H D RBC 3.43 L D Hgb 9.4 L D Hct 30.4 L MCV 88.6 D MCH 27.4 MCHC 31.0 L RDW 16.8 H Plt Count 277 MPV 7.9 Neutrophils % No Result Required. Lymphocytes % No Result Required. PT with INR 12.10 H INR 1.07 PTT (Actin FS) 20.4 L VBG pH POC VBG pCO2 POC VBG pO2 Mixed VBG HCO3 Sodium 144 Potassium 3.5 Chloride 107 Carbon Dioxide 18 L D Anion Gap 19 H BUN 26 H D Creatinine 2.4 H Creat Clearance w eGFR 28.04 Random Glucose 281 H D Calcium 8.4 L Phosphorus 6.8 H Magnesium 2.2 Total Bilirubin 0.2 AST 16 D ALT 15 Alkaline Phosphatase 90 Creatine Kinase 117 Troponin I 0.07 H B-Natriuretic Peptide Total Protein 6.3 L Albumin 2.6 L D Urine Color Urine Appearance Urine pH Ur Specific [place] Urine Protein Urine Glucose (UA) Urine Ketones Urine Blood Urine Nitrite Urine Bilirubin Urine Urobilinogen Urine WBC (Auto) Urine RBC (Auto) Hyaline Casts Urine Mucus 07/05/17 00:45 RBC 3.43 L D MCV 88.6 D MCHC 31.0 L RDW 16.8 H MPV 7.9 Neutrophils % No Result Required. Lymphocytes % No Result Required. - RADIOLOGY Radiology Studies Ordered: Category Date Time Status CHEST X-RAY PORTABLE* [RAD] Stat Radiology 07/05/17 00:47 Taken Medical Decision Making - Medical Decision Making 56 YOM BIBA for severe respiratory distress goes into cardiopulmonary arrest shortly after arrival to ED. 2 rounds epi and 2 rounds bicarb given, CPR performed, patient intubated, ROSC achieved. Patient kept on propofol drip as he awakens a bit in the ED. DDX IBNLT ACS, PE, CHF exacerbation, arrhythmia, sepsis, etc. Ordered is CBCD, CMP, Mg, Phos, cardiac panel, BNP, ABG, coags, UA cx, CXR. 07/05/17 02:58 Labs result with WBC 26.4, ABG pH 6.98, Cr 2.4, BNP>27,000. Patient to be admitted to ICU, called Dr. Becerra who agrees with plan. ICU called and RN states there is a room for the patient; gives [facility]'s cell number. *DC/Admit/Observation/Transfer Diagnosis at time of Disposition: Cardiopulmonary arrest with successful resuscitation CHF (congestive heart failure) Qualifiers: Congestive heart failure type: unspecified congestive heart failure type Congestive heart failure chronicity: unspecified congestive heart failure chronicity Qualified Code(s): I50.9 - Heart failure, unspecified - Discharge Dispostion Condition at time of disposition: Critical Admit: Yes - Referrals - Patient Instructions - Post Discharge Activity
[2017-07-05] MEDS ORDERED: ALBUTEROL SO4 2.5/IPRATROPIUM 0.5 INH SOL 3 ML VIAL.NEB. NEB ONE (01:43)
[2017-07-05] MEDS ORDERED: methylPREDNISolone NA SUCC 125 MG/2 ML VIAL IVPB ONE (01:44)
[2017-07-05] MEDS: PROPOFOL 1,000,000 MCG/100 ML VIAL IVPB SCH (01:45)
[2017-07-05] MEDS ORDERED: SODIUM BICARBONATE 8.4% 50 MEQ/50 ML DISP.SYRIN IVPUSH ONE ×2 (01:46→01:51)
[2017-07-05 01:49] LABS: ALBUMIN 2.6 g/dl (3.4-5.0); ANION GAP 19 (8-16); CALCIUM 8.4 mg/dL (8.5-10.1); CO2 18 mmol/L (21-32); CREATININE 2.4 mg/dL (0.7-1.3); GLUCOSE,RANDOM 281 mg/dL (74-106); MAGNESIUM 2.2 mg/dL (1.8-2.4); PHOSPHOROUS 6.8 mg/dL (2.5-4.9); SGOT/AST 16 U/L (15-37); SGPT/ALT 15 U/L (12-78)
[2017-07-05 01:53] LABS: ALK PHOS 90 U/L (45-117); BILIRUBIN,TOTAL 0.2 mg/dL (0.2-1.0); CPK 117 IU/L (39-308); TOT PROT 6.3 g/dl (6.4-8.2); TROPONIN I 0.07 ng/ml (0.00-0.05)
[2017-07-05] MEDS ORDERED: FUROSEMIDE 40 MG/4 ML INJECTABLE VIAL IVPUSH ONE (01:58)
[2017-07-05 02:20] LABS: URINE APPEARANCE SLCLOUDY; URINE BILIRUBIN NEGATIVE (NEGATIVE); URINE BLOOD 1+ (NEGATIVE); URINE COLOR LTYELLOW; URINE GLUCOSE (UA) 1+ (NEGATIVE); URINE KETONE NEGATIVE (NEGATIVE); URINE NITRITE NEGATIVE (NEGATIVE); URINE UROBILINOGEN NEGATIVE mg/dL (0.2-1.0)
[2017-07-05 02:22] LABS: URINE PROTEIN 3+ (NEGATIVE)
[2017-07-05 02:27] LABS: URINE HYALINE CAST 1 /lpf; URINE MUCUS RARE; URINE RBC 14 /hpf (0-3); URINE WBC 3 /hpf (3-5)
[2017-07-05] MEDS ORDERED: LORazepam 2 MG/ML SDV VIAL ONE (02:34)
[2017-07-05] MEDS ORDERED: FUROSEMIDE 40 MG/4 ML INJECTABLE VIAL ONE ×2 (02:58→08:29)
[2017-07-05] MEDS ORDERED: methylPREDNISolone NA SUCC 125 MG/2 ML VIAL ONE (03:00)
[2017-07-05] MEDS ORDERED: VANCOMYCIN 1 GRAM (PRE-DOCKED) 1,000 MG/250 ML BAG IVPB ONE ×2 (03:20→08:30)
[2017-07-05] MEDS ORDERED: PIPERACILLIN/TAZOB 4.5 GM 4.5 GM/100 ML BAG IVPB ONE ×2 (03:21→08:30)
[2017-07-05 04:05] LABS: REACTIVE LYMPHOCYTES 1 % (0-80); TOTAL CELLS COUNTED 100
[2017-07-05] MEDS ORDERED: MIDAZOLAM HCL 5 MG/1 ML Single Dose Vial IVPUSH ONE ×2 (06:04→06:15)
[2017-07-05 06:08] LABS: ARTERIAL BLD GAS O2 SATURATION 95.2 % (90-98.9); ARTERIAL BLOOD GAS BASE EXCESS -8.1 meq/l (-2-2); ARTERIAL BLOOD GAS HCO3 16.9 meq/L (22-26); ARTERIAL BLOOD GAS PO2 95.4 mmHg (80-100); ARTERIAL BLOOD GAS pH 7.31 (7.35-7.45)
[2017-07-05] MEDS ORDERED: MIDAZOLAM HCL 5 MG/1 ML Single Dose Vial ONE (06:09)
[2017-07-05] MEDS ORDERED: TOBRAMYCIN SULFATE IVPB ONE (06:11)
[2017-07-05] MEDS ORDERED: SODIUM CHLORIDE IVPB ONE (06:11)
[2017-07-05 06:14] LABS: LPM/O2% 100%; PT. ON O2? YES
[2017-07-05 06:15] LABS: MECH. VENT. YES; VENT RATE 20; VT/PRESS 500
[2017-07-05 06:25] LABS: MCH 27.1 pg (25.7-33.7); MCHC 31.9 g/dl (32.0-35.9); MEAN CELL VOLUME 85.1 fl (80-96); MEAN PLT VOLUME 8.1 fl (7.5-11.1); PLATELET COUNT 320 K/MM3 (134-434); RDW 16.7 % (11.9-15.9)
--- NOTE | 2017-07-05 06:35 | CONSULT ---
Consult Consult Specialty:: PULM/CCM Referred by:: Dr. Carina Becerra Reason for Consultation:: Cardiac Arrest - History of Present Illness Chief Complaint: Cardiac Arrest History of Present Illness: Mr. Welch is a 56 y/o man w/ HTN, HL, DM, CKD, HIV on HAART, EF 49.5%, BIBA SOB. A/P reports given to the ED by EMS, pt's daughter, & pt's friend: the pt had been experiencing worsening SOB & SAMUELS w/ assoc wheezing X past few days. A/ p EMS, enroute to ED, pt's condition acutely worsened & he was noted to have bilateral wheezes w/ poor aeration. Attempts to place pt on CPAP en route were unsuccessful 2/2 AMS w/ agitation. U/A to ED pt was noted unresponsive & breathing agonally. No pulse noted on stretcher transferand chest compressions were initiated. The Pt was resuscitated per ACLS protocol for approximately 5 minutes, receiving epi x 2, bicarb x 2. First pulse check revealed PEA arrest. During this time the pt was intubated by DL, w/ placement of 7.5 ETT. Second pulse check revealed ROSC & A-Fib on the monitor. Pt was placed on ventilator and given nebulizers and steroids. BP 160s systolic, HR 80s, satting 100% on ventilator. Pt was given lasix 40mg IV for pulmonary edema. Labs results: WBC 26.4, ABG pH 6.98, Cr 2.4, BNP>27,000. Pt admitted now to the ICU s/p Cardiac Arrest 2/2 resp fail m/l Pulmonary edema +/- PNA. - History Source History Provided By: Medical Record Limitations to Obtaining History: Clinical Condition - Past Medical History Cardio/Vascular: Yes: CHF, HTN, Hyperlipdemia Renal/: Yes: Renal Inusuff Infectious Disease: Yes: AIDS, HIV Endocrine: Yes: Diabetes Mellitus - Alcohol/Substance Use Hx Alcohol Use: No - Smoking History Smoking history: Current every day smoker Have you smoked in the past 12 months: Yes - Social History Usual Living Arrangement: With Significant Other Place of : [facility] History of Recent Travel: No Home Medications - Allergies Allergies/Adverse Reactions: Allergies Allergy/AdvReac Type Severity Reaction Status Date / Time No Known Allergies Allergy Verified 07/05/17 01:49 Family Disease History - Family Disease History Family History: Unable to Obtain (INTUBATED, S/P CARDIAC ARREST) Review of Systems Unable to obtain ROS, reason: INTUBATED, S/P CARDIAC AR Physical Exam Vital Signs: Vital Signs Temperature 98.2 F 07/05/17 00:31 Pulse Rate 82 07/05/17 02:17 Respiratory Rate 22 07/05/17 04:30 Blood Pressure 152/87 07/05/17 02:17 O2 Sat by Pulse Oximetry (%) 100 07/05/17 03:32 Constitutional: Yes: Well Nourished, No Distress, Calm Eyes: Yes: PERRL, Other (R Upward Lat Gaze.) HENT: Yes: WNL, Atraumatic, Normocephalic Neck: Yes: WNL, Supple, Trachea Midline Cardiovascular: Yes: WNL, Regular Rate and Rhythm Respiratory: Yes: Diminished, Mechanically Ventilated, Wheezes Gastrointestinal: Yes: Abdomen, Obese, Distention, Hyperactive Bowel Sounds ...Rectal Exam: Yes: Deferred Renal/: Yes: Rocha Present Breast(s): Yes: WNL Extremities: Yes: Other (Clubbed Fingers.) Edema: Yes Edema: LLE: 1+, RLE: 1+ Peripheral Pulses WNL: Yes Integumentary: Yes: WNL Neurological: Yes: Seizure ...Motor Strength: WNL Psychiatric: Yes: WNL Labs: CBC, BMP 07/05/17 05:00 07/05/17 05:00 Imaging - Results Chest X-ray: Image Reviewed (07/05: ETT @ the level of the Clavicles, B/L infiltrates (MY Read).) EKG: Image Reviewed (A-Flutter in the 80's w/o ectopy, ST flattening in II, III , & AVF c/w inferior ischemia, QTc = 472ms, this is A-flutter w. a variable block (My Read).) Problem List - Problems (1) CHF (congestive heart failure) Code(s): I50.9 - HEART FAILURE, UNSPECIFIED Qualifiers: Congestive heart failure type: unspecified congestive heart failure type Congestive heart failure chronicity: unspecified congestive heart failure chronicity Qualified Code(s): I50.9 - Heart failure, unspecified (2) Cardiopulmonary arrest with successful resuscitation Code(s): I46.9 - CARDIAC ARREST, CAUSE UNSPECIFIED (3) Pneumonia Code(s): J18.9 - PNEUMONIA, UNSPECIFIED ORGANISM (4) Respiratory failure Code(s): J96.90 - RESPIRATORY FAILURE, UNSP, UNSP W HYPOXIA OR HYPERCAPNIA Assessment/Plan ASSESS: This is a 56 YOM w/ HTN, HL, DM, CKD, & HIV/AIDS on HAART admitted now w / resp fail s/p cardiac arrest m/l 2/2 flash pulm edema +/- pna. PLAN: -LPV -Wean FiO2 as tolerated -Sedate for Vent Synch -NEBS -Hood clxr -Urine Ags -Fungitell -Galacto -C-Diff -GI Pathogen PCR -Vanc/Tobra/Zo -Consider IV Tx dose Bactrim & Steroid -Cont HAART a/p ID -Bronch for Silver Stain? -Gentle Diuresis -Follow CVP -Trend Lactate -Strict I's & O's -Trend BUN/Cr -Replete e-lytes prn -Cool down to 33 degress & hold X24Hrs -Propofol & Fent for Shiver -TTE -EKG -SQH -SCDs -PPI -Pt's Daughter (Elijah Welch) updated extensively as to pt's critical status & plan. Thank you for this interesting Consult [facility] ICU PULM/CCM Critical Care Time/MDM Note Total Critical Care Time: 60 Critical Care Statement: The care of this patient involved high complexity decision making to prevent further life threatening deterioration of the patient 's condition and/or to evaluate & treat vital organ system(s) failure or risk of failure.
[2017-07-05] MEDS ORDERED: FUROSEMIDE INJECTION 100 MG in DEXTROSE 5%-WATER - 90 ML IVPB SCH (06:45)
[2017-07-05 06:49] LABS: ANION GAP 11 (8-16); CALCIUM 7.5 mg/dL (8.5-10.1); CO2 19 mmol/L (21-32); CREATININE 2.8 mg/dL (0.7-1.3); MAGNESIUM 1.9 mg/dL (1.8-2.4); PHOSPHOROUS 4.5 mg/dL (2.5-4.9)
[2017-07-05 07:14] LABS: GLUCOSE,RANDOM 338 mg/dL (74-106)
--- NOTE | 2017-07-05 07:41 | PROC ---
Central Line Insertion Indication: CVP Monitoring, Poor Venous Access, Sepsis, Vasopressor Risks and Benefits Explained: Yes Consent on Chart: Yes Central Line: Triple Lumen Catheter Anesthesia: 1% Lidocaine Sterile Technique: Yes Ultrasound Guided Assistance: Yes Position: Left Internal Jugular Post Insertion: Yes: Bilateral Breath Sounds, Bilateral Chest Expansion, Chest X-Ray Ordered Sterile Dressing Applied: Yes Remarks: Pt tolerated Procedure well. There are no Complications to report.
--- NOTE | 2017-07-05 07:46 | PROC ---
Procedure Note Procedure: ICU A-LINE INSERTION NOTE: INDICATION: Imminent hemodynamic instability in the setting of increasing sedation requirements, cooling, & required frequent ABGs. CONSENT: Consent was obtained from pt's daughter elvis Wong & placed in the chart. PROCEDURE: R Hand. Sorin's test confirmed good arterial blood flow in both the radial & ulnar arteries. The R wrist was secured in position, prepped, & draped in the usual sterile fashion. TIME OUT The site was anesthetized w/ 3cc of 1% Lidocaine. A 20G needle was inserted into the R radial artery on the first attempt w/ pulsating bright red blood return. A 20G catheter was inserted into the artery via the Seldinger technique & the arterial line was connected. A good tracing & arterial waveform was confirmed. The catheter was secured in place w/ 2.0 Nylon sutures X2 and a sterile dressing was applied. Post procedure re-eval confirmed a pink warm R hand cap-refill < 2sec in all 5 R hand digits. Pt tolerated the procedure well. Sal Mckeon, ACNP-BC [id number] [facility] PULM / CCM
[2017-07-05 08:35] LABS: PLATELET COMMENTS NO CLUMPING NOTED; PLATELET ESTIMATE ADEQUATE
[2017-07-05] MEDS ORDERED: PNEUMOC 13-VAL CONJ-DIP CRM/PF 0.5 ML DISP.SYRIN IM ONE (09:00)
[2017-07-05 09:26] LABS: ARTERIAL BLD GAS O2 SATURATION 98.1 % (90-98.9); ARTERIAL BLOOD GAS BASE EXCESS -7.7 meq/l (-2-2); ARTERIAL BLOOD GAS HCO3 17.6 meq/L (22-26)
[2017-07-05] MEDS: FENTANYL INJECTION 500 MCG in DEXTROSE 5%-WATER - 90 ML IVPB SCH (09:26)
[2017-07-05 09:27] LABS: ALLENS TEST POSITIVE
[2017-07-05 09:28] LABS: ART PUNCT SITE ARTERIAL LINE; LPM/O2% 100; PT. ON O2? YES
[2017-07-05 09:29] LABS: MECH. VENT. TV500
[2017-07-05 09:30] LABS: TYPE OF O2 MECH VENT
[2017-07-05] MEDS ORDERED: fentaNYL CITRATE 250 MCG/5 ML VIAL ONE ×2 (09:34→18:53)
--- NOTE | 2017-07-05 09:59 | PN ---
Progress Note (short form) - Note Progress Note: Patient seen and examined in the ICU. Intubated and sedated on propofol. Shivering noted. No pressors. AC mode of vent, 100% FiO2. Intake & Output 07/02/17 07/03/17 07/04/17 07/05/17 23:59 23:59 23:59 23:59 Intake Total 24 Output Total 200 Balance -176 Weight 218 lb 4.122 oz Last Vital Signs Temp Pulse Resp BP Pulse Ox 97.4 F L 87 20 162/88 100 07/05/17 04:00 07/05/17 06:00 07/05/17 07:58 07/05/17 06:00 07/05/17 03:32 Active Medications Albuterol Sulfate (Ventolin 0.083% Nebulizer Soln -) 1 amp NEB Q4H PRN PRN Reason: SHORT OF BREATH/WHEEZING Propofol (Diprivan -) 1,000,000 mcg in 100 mls @ 2.858 mls/hr IVPB TITR PAULINE; 5 MCG/KG/MIN PRN Reason: Protocol Last Admin: 07/05/17 01:45 Dose: 13.99 mcg/kg/min, 7.996 mls/hr Fentanyl 500 mcg/ Dextrose 100 mls @ 20 mls/hr IVPB TITR PAULINE PRN Reason: 100 MCG/HR Last Admin: 07/05/17 09:26 Dose: 20 mls/hr Furosemide 100 mg/ Dextrose 100 mls @ 5 mls/hr IVPB TITR PAULINE PRN Reason: 5 MG/HR Last Admin: 07/05/17 08:40 Dose: 5 mg/hr, 5 mls/hr Vecuronium [place] 50 mg/ (Dextrose) 250 mls @ 29.7 mls/hr IVPB TITR PAULINE PRN Reason: 1 MCG/KG/MIN Piperacillin/Tazobactam/Dextrose (Zosyn 4.5gm Ivpb (Premix)) 4.5 gm IVPB Q8H- IV PAULINE Constitutional: Yes: Intubated, non-responsive Eyes: Yes: Pupils small and fixed, Upward gaze HENT: Yes: WNL, Atraumatic, Normocephalic Neck: Yes: WNL, Supple, Trachea Midline Cardiovascular: Yes: Regular Rate and Rhythm Respiratory: Yes: Diminished BS at the bases, Mechanically Ventilated Gastrointestinal: Yes: Abdomen, Obese, Hypoactive Bowel Sounds ...Rectal Exam: Yes: Deferred Renal/: Yes: Rocha Present Breast(s): Yes: WNL Extremities: Yes: Cool Edema: Yes Edema: LLE: 1+, RLE: 1+ Peripheral Pulses WNL: Yes Integumentary: Yes: WNL Neurological: Yes: Nonresponsive ...Motor Strength: WNL Psychiatric: Yes: WNL Labs: Laboratory Results - last 24 hr 07/05/17 07/05/17 07/05/17 00:45 00:45 00:45 WBC 26.4 H D RBC 3.43 L D Hgb 9.4 L D Hct 30.4 L MCV 88.6 D MCH 27.4 MCHC 31.0 L RDW 16.8 H Plt Count 277 MPV 7.9 Total Counted 100 Neutrophils % 24.0 L Neutrophils % (Manual) 24.0 L Lymphocytes % 70.0 H Lymphocytes % (Manual) 70.0 H Monocytes % 4.0 Monocytes % (Manual) 4 Eosinophils % 1.0 Eosinophils % (Manual) 1.0 Manual Slide Review Platelet Estimate Adequate Platelet Comment No clumping noted PT with INR 12.10 H INR 1.07 PTT (Actin FS) 20.4 L Puncture Site ABG pH ABG pCO2 at Pt Temp ABG pO2 at Pt Temp ABG HCO3 ABG O2 Sat (Measured) ABG O2 Content ABG Base Excess Sorin Test VBG pH POC VBG pCO2 POC VBG pO2 Mixed VBG HCO3 Carboxyhemoglobin Methemoglobin O2 Delivery Device Oxygen Flow Rate Vent Rate Mechanical Rate PEEP Pressure Support Vent Sodium 144 Potassium 3.5 Chloride 107 Carbon Dioxide 18 L D Anion Gap 19 H BUN 26 H D Creatinine 2.4 H Creat Clearance w eGFR 28.04 POC Glucometer Random Glucose 281 H D Lactic Acid Calcium 8.4 L Phosphorus 6.8 H Magnesium 2.2 Total Bilirubin 0.2 AST 16 D ALT 15 Alkaline Phosphatase 90 Creatine Kinase 117 Troponin I 0.07 H B-Natriuretic Peptide Total Protein 6.3 L Albumin 2.6 L D Urine Color Urine Appearance Urine pH Ur Specific [place] Urine Protein Urine Glucose (UA) Urine Ketones Urine Blood Urine Nitrite Urine Bilirubin Urine Urobilinogen Urine WBC (Auto) Urine RBC (Auto) Hyaline Casts Urine Mucus Random Vancomycin 07/05/17 07/05/17 07/05/17 00:45 01:00 02:10 WBC RBC Hgb Hct MCV MCH MCHC RDW Plt Count MPV Total Counted Neutrophils % Neutrophils % (Manual) Lymphocytes % Lymphocytes % (Manual) Monocytes % Monocytes % (Manual) Eosinophils % Eosinophils % (Manual) Manual Slide Review Platelet Estimate Platelet Comment PT with INR INR PTT (Actin FS) Puncture Site ABG pH ABG pCO2 at Pt Temp ABG pO2 at Pt Temp ABG HCO3 ABG O2 Sat (Measured) ABG O2 Content ABG Base Excess Sorin Test VBG pH 6.98 L* POC VBG pCO2 69.6 H* POC VBG pO2 49.8 H Mixed VBG HCO3 15.6 L Carboxyhemoglobin Methemoglobin O2 Delivery Device Oxygen Flow Rate Vent Rate Mechanical Rate PEEP Pressure Support Vent Sodium Potassium Chloride Carbon Dioxide Anion Gap BUN Creatinine Creat Clearance w eGFR POC Glucometer Random Glucose Lactic Acid Calcium Phosphorus Magnesium Total Bilirubin AST ALT Alkaline Phosphatase Creatine Kinase Troponin I B-Natriuretic Peptide 77721.37 H Total Protein Albumin Urine Color Ltyellow Urine Appearance Slcloudy Urine pH 6.0 Ur Specific [place] 1.016 Urine Protein 3+ H Urine Glucose (UA) 1+ H Urine Ketones Negative Urine Blood 1+ H Urine Nitrite Negative Urine Bilirubin Negative Urine Urobilinogen Negative Urine WBC (Auto) 3 Urine RBC (Auto) 14 Hyaline Casts 1 Urine Mucus Rare Random Vancomycin 07/05/17 07/05/17 07/05/17 04:09 05:00 05:00 WBC 22.0 H RBC 3.87 L Hgb 10.5 L D Hct 32.9 L MCV 85.1 MCH 27.1 MCHC 31.9 L RDW 16.7 H Plt Count 320 MPV 8.1 Total Counted Neutrophils % Neutrophils % (Manual) Lymphocytes % Lymphocytes % (Manual) Monocytes % Monocytes % (Manual) Eosinophils % Eosinophils % (Manual) Manual Slide Review No Result Required. Platelet Estimate Platelet Comment PT with INR INR PTT (Actin FS) Puncture Site ABG pH ABG pCO2 at Pt Temp ABG pO2 at Pt Temp ABG HCO3 ABG O2 Sat (Measured) ABG O2 Content ABG Base Excess Sorin Test VBG pH POC VBG pCO2 POC VBG pO2 Mixed VBG HCO3 Carboxyhemoglobin Methemoglobin O2 Delivery Device Oxygen Flow Rate Vent Rate Mechanical Rate PEEP Pressure Support Vent Sodium 141 Potassium 4.3 D Chloride 111 H Carbon Dioxide 19 L Anion Gap 11 BUN 32 H D Creatinine 2.8 H Creat Clearance w eGFR POC Glucometer [id number] Random Glucose 338 H* D Lactic Acid Calcium 7.5 L Phosphorus 4.5 D Magnesium 1.9 Total Bilirubin AST ALT Alkaline Phosphatase Creatine Kinase Troponin I B-Natriuretic Peptide Total Protein Albumin Urine Color Urine Appearance Urine pH Ur Specific [place] Urine Protein Urine Glucose (UA) Urine Ketones Urine Blood Urine Nitrite Urine Bilirubin Urine Urobilinogen Urine WBC (Auto) Urine RBC (Auto) Hyaline Casts Urine Mucus Random Vancomycin 07/05/17 07/05/17 07/05/17 05:00 05:00 05:00 WBC RBC Hgb Hct MCV MCH MCHC RDW Plt Count MPV Total Counted Neutrophils % Neutrophils % (Manual) Lymphocytes % Lymphocytes % (Manual) Monocytes % Monocytes % (Manual) Eosinophils % Eosinophils % (Manual) Manual Slide Review Platelet Estimate Platelet Comment PT with INR INR PTT (Actin FS) Puncture Site ABG pH ABG pCO2 at Pt Temp ABG pO2 at Pt Temp ABG HCO3 ABG O2 Sat (Measured) ABG O2 Content ABG Base Excess Sorin Test VBG pH POC VBG pCO2 POC VBG pO2 Mixed VBG HCO3 Carboxyhemoglobin Methemoglobin O2 Delivery Device Oxygen Flow Rate Vent Rate Mechanical Rate PEEP Pressure Support Vent Sodium Potassium Chloride Carbon Dioxide Anion Gap BUN Creatinine Creat Clearance w eGFR POC Glucometer Random Glucose Lactic Acid 2.5 H* Calcium Phosphorus Magnesium Total Bilirubin AST ALT Alkaline Phosphatase Creatine Kinase Troponin I 0.36 H D B-Natriuretic Peptide Total Protein Albumin Urine Color Urine Appearance Urine pH Ur Specific [place] Urine Protein Urine Glucose (UA) Urine Ketones Urine Blood Urine Nitrite Urine Bilirubin Urine Urobilinogen Urine WBC (Auto) Urine RBC (Auto) Hyaline Casts Urine Mucus Random Vancomycin < 0.800 07/05/17 07/05/17 06:00 09:15 WBC RBC Hgb Hct MCV MCH MCHC RDW Plt Count MPV Total Counted Neutrophils % Neutrophils % (Manual) Lymphocytes % Lymphocytes % (Manual) Monocytes % Monocytes % (Manual) Eosinophils % Eosinophils % (Manual) Manual Slide Review Platelet Estimate Platelet Comment PT with INR INR PTT (Actin FS) Puncture Site Y Arterial line ABG pH 7.31 L 7.30 L ABG pCO2 at Pt Temp 34.7 L 37.4 ABG pO2 at Pt Temp 95.4 125.0 H D ABG HCO3 16.9 L 17.6 L ABG O2 Sat (Measured) 95.2 98.1 ABG O2 Content 14.0 L 15.0 ABG Base Excess -8.1 L -7.7 L Sorin Test Not applicable Positive VBG pH POC VBG pCO2 POC VBG pO2 Mixed VBG HCO3 Carboxyhemoglobin 0.2 L Methemoglobin 1.0 O2 Delivery Device Mech vent Oxygen Flow Rate 100% 100 Vent Rate 20 Mechanical Rate Yes Tv500 PEEP 5.0 5.0 Pressure Support Vent 500 Sodium Potassium Chloride Carbon Dioxide Anion Gap BUN Creatinine Creat Clearance w eGFR POC Glucometer Random Glucose Lactic Acid Calcium Phosphorus Magnesium Total Bilirubin AST ALT Alkaline Phosphatase Creatine Kinase Troponin I B-Natriuretic Peptide Total Protein Albumin Urine Color Urine Appearance Urine pH Ur Specific [place] Urine Protein Urine Glucose (UA) Urine Ketones Urine Blood Urine Nitrite Urine Bilirubin Urine Urobilinogen Urine WBC (Auto) Urine RBC (Auto) Hyaline Casts Urine Mucus Random Vancomycin Problem List - Problems (1) CHF (congestive heart failure) Code(s): I50.9 - HEART FAILURE, UNSPECIFIED Qualifiers: Congestive heart failure type: unspecified congestive heart failure type Congestive heart failure chronicity: unspecified congestive heart failure chronicity Qualified Code(s): I50.9 - Heart failure, unspecified (2) Cardiopulmonary arrest with successful resuscitation Code(s): I46.9 - CARDIAC ARREST, CAUSE UNSPECIFIED (3) Pneumonia Code(s): J18.9 - PNEUMONIA, UNSPECIFIED ORGANISM (4) Respiratory failure Code(s): J96.90 - RESPIRATORY FAILURE, UNSP, UNSP W HYPOXIA OR HYPERCAPNIA Assessment/Plan ASSESS: This is a 56 YOM w/ HTN, HL, DM, CKD, & HIV/AIDS on HAART admitted now w / resp fail s/p cardiac arrest m/l 2/2 flash pulm edema +/- pna. PLAN: Vecuronium drip as shivering is preventing adequate TTM Wean FiO2 as tolerated Full Sedation for Vent Synch BD TX Follow cultures Labs Q6 while on TTM ID evaluation Follow CVP D/C Lasix drip Cool down to 33 degress & hold X24Hrs [facility] SCDs PPI Dr Glez Critical care time spent in reviewing chart, evaluating patient and formulating plan - 60 minutes.
[2017-07-05] MEDS ORDERED: PIPERACILLIN/TAZOB 4.5 GM/100 ML PREMIX BAG IVPB SCH (10:00)
[2017-07-05] MEDS ORDERED: VECURONIUM BROMIDE 10 MG VIAL ONE ×2 (10:25→18:52)
[2017-07-05] MEDS: VECURONIUM BROMIDE 50 MG in DEXTROSE 5%-WATER - 250 ML IVPB SCH ×2 (10:44→10:46)
[2017-07-05 11:16] LABS: URINE LEUK ESTERASE Negative (NEGATIVE)
--- NOTE | 2017-07-05 12:36 | PN ---
Progress Note (short form) - Note Progress Note: ID Consult dictated 56 y/o male PMH HIV + (?AIDS) admitted with labored beathing now s/p cardiopulmonary arrest. Now unresponsive on ventilator. CXR ARDS pattern Discussed with patient's daughter Elijah Welch who is aware of his HIV + status. She reports pt HIV + x 10yr and is followed in [place] She reports he is adherent to ART and states his CD4 counts have been "good". She is unaware of any OI. She will bring in his meds today S/P cardiopulmonary arrest Possible asp pneumonia v pulmonary edema Marked leukocytosis Azotemia Continue ventilatory support Hypothermia protocol Obtain CD4 Empiric zosyn/ vanco adjusted for azotemia Prognosis guarded Critical care time 40min
[2017-07-05] MEDS ORDERED: niCARdipine HCL 25 MG/10 ML AMPUL IVPB ONE (12:43)
[2017-07-05] MEDS ORDERED: NICARDIPINE 25 MG in DEXTROSE 5%-WATER - 240 ML IVPB SCH (12:45)
--- NOTE | 2017-07-05 13:51 | CONS ---
DATE OF CONSULTATION: 07/05/2017 HISTORY OF PRESENT ILLNESS: The patient is a 56-year-old male with a history of HIV positive evaluated for sepsis. History was obtained from the chart a well as the patients daughter by phone. He was admitted to the hospital on July 05, 2017 with worsening shortness of breath. According to the family he had been increasingly short of breath for several days to weeks and had been wheezing. His breathing markedly worsened on the day of admission. EMS was summoned and he was brought to the emergency room. He had developed acute respiratory distress en route to the hospital. The paramedics were unable to apply CPAP because of his agitated state. After arrival in the emergency room the patient suffered a cardiopulmonary arrest. He was successfully resuscitated. He is presently in the Intensive Care Unit on mechanical ventilation and hypothermia protocol. Chest x-ray shows bilateral infiltrates consistent with pulmonary edema versus pneumonia. His course was complicated by an elevated white blood cell count of 26,000, lactic acidosis, and renal failure. He was empirically treated with vancomycin, Zosyn, and Tobramycin. The patients daughter is aware of his HIV positive status although she states she is unaware of any other family members or friends knowing of this diagnosis. She reports that he has been under the care of a physician and has been HIV positive for approximately 10 years, has been adherent to his antiretroviral therapy, and that his CD4 counts were good. She is unaware of any opportunistic infections or recent hospitalizations for HIV-related conditions. PAST MEDICAL HISTORY: Positive for HIV disease, diabetes mellitus, chronic kidney disease, hypertension, hyperlipidemia, and questionable COPD. ALLERGIES: No known allergies. SOCIAL HISTORY: As per HPI; positive history of tobacco. His substance abuse history is not available. REVIEW OF SYSTEMS: Neurologic: Positive for obtundation. Cardiac: Status post cardiopulmonary arrest. Respiratory: As per HPI. Gastrointestinal: Negative vomiting or diarrhea. Genitourinary: Negative for urinary tract infection. LABORATORY DATA: White count 26,000 with 24 neutrophils, 70 lymphocytes, hematocrit 32.9, and platelet count 320. BUN 32, creatinine 2.9, glucose 338, and lactic acid 2.5. Urinalysis: Negative leukocyte esterase. Chest x-ray shows bilateral infiltrates. PHYSICAL EXAMINATION: General: He is unresponsive on the ventilator. Vital Signs: Temperature 97.4, blood pressure 162/88, pulse 87 and regular, and respirations 20 per minute. HEENT: Sclerae anicteric. The patient is orally intubated. Heart sounds: S1, S2. Lungs: Air entry bilaterally. Abdomen: Soft, no tenderness elicited. No mass, rebound, or rigidity. Extremities: Edema 1+. IMPRESSION: A 56-year-old male human immunodeficiency virus positive admitted with difficulty breathing now status post cardiopulmonary arrest presently unresponsive on the ventilator. 1. Status post cardiopulmonary arrest. 2. Possible aspiration pneumonia versus pulmonary edema (cardiogenic versus non-cardiogenic). 3. Marked leukocytosis multifactorial (leukemoid reaction and possible sepsis). 4. Azotemia. PLAN: Continue ventilatory support, hypothermia protocol. Obtain and lymphocyte count, empiric antibiotic coverage with Zosyn and vancomycin adjusted for azotemia. The daughter will bring in his medications so that we may determine his regime and the name of is provider as well as any other pertinent information regarding his HIV status. Prognosis is guarded. Critical care time spent: 40 minutes. Thank you for the kind referral. ANGIE NUNEZ M.D. [id number]
[2017-07-05] MEDS ORDERED: PT OWN MED DRAWER 7, Y5N ONE (17:35)
[2017-07-05] MEDS: PIPERACILLIN/TAZOB 2.25 GM 2.25 GM in DEXTROSE 5%-WATER - 50 ML IVPB SCH (17:44)
[2017-07-05] MEDS ORDERED: PIPERACILLIN/TAZOB 2.25 GM/50 ML PREMIX BAG IVPB SCH (18:00)
[2017-07-05 21:28] LABS: ARTERIAL BLD GAS O2 SATURATION 95.6 % (90-98.9); ARTERIAL BLOOD GAS HCO3 15.9 meq/L (22-26); ARTERIAL BLOOD GAS PO2 88.9 mmHg (80-100)
[2017-07-05 21:29] LABS: ART PUNCT SITE ARTERIAL LINE; LPM/O2% 100%; PT. ON O2? YES; TYPE OF O2 MECHANICAL VENT
[2017-07-05 21:30] LABS: MECH. VENT. YES; VENT RATE 20; VT/PRESS 500
[2017-07-05 21:32] LABS: ARTERIAL BLOOD GAS BASE EXCESS -10.6 meq/l (-2-2); ARTERIAL BLOOD GAS pH 7.23 (7.35-7.45)
[2017-07-05 21:39] LABS: MCH 27.2 pg (25.7-33.7); MCHC 31.8 g/dl (32.0-35.9); MEAN CELL VOLUME 85.4 fl (80-96); MEAN PLT VOLUME 8.2 fl (7.5-11.1); PLATELET COUNT 267 K/MM3 (134-434); RDW 16.7 % (11.9-15.9); WHITE BLOOD COUNT 23.7 K/mm3 (4.0-10.0)
[2017-07-05 21:53] LABS: INR 1.18 (0.82-1.09); PROTHROMBIN TIME (PATIENT) 13.3 SEC (9.98-11.88)
[2017-07-05 22:06] LABS: ANION GAP 13 (8-16); CO2 14 mmol/L (21-32); CREATININE 2.7 mg/dL (0.7-1.3); MAGNESIUM 1.4 mg/dL (1.8-2.4); PHOSPHOROUS 3.7 mg/dL (2.5-4.9)
[2017-07-05 22:16] LABS: CALCIUM 5.4 mg/dL (8.5-10.1); GLUCOSE,RANDOM 478 mg/dL (74-106)
[2017-07-05] MEDS ORDERED: CALCIUM GLUCONATE 10% - 1,000 MG/10 ML VIAL IVPB ONE (22:16)
[2017-07-05] MEDS ORDERED: INSULIN REGULAR HUMAN 100 UNITS/ML *VIAL IVPUSH ONE (22:17)
--- NOTE | 2017-07-05 23:06 | HP ---
Admitting History and Physical - Admission History of Present Illness: Mr. Welch is a 56 y/o man w/ PMH significant for HTN, HL, DM, CKD, and HIV on HAART. Pt is intubated and therefore unable to give a history Pt was initially BIBA for SOB. Pt had been experiencing worsening SOB & SAMUELS w/ assoc wheezing X past few days. Pt arrived to the ER unresponsive/no pulse and CPR ws initially. The Pt was resuscitated per ACLS protocol for approximately 5 minutes. Pt was placed on ventilator and given nebulizers and steroids. - Past Medical History Cardiovascular: Yes: CHF, HTN, Hyperlipdemia Renal/: Yes: Renal Inusuff Infectious Disease: Yes: AIDS, HIV Endocrine: Yes: Diabetes Mellitus - Past Surgical History Past Surgical History: Yes: None - Smoking History Smoking history: Current every day smoker Have you smoked in the past 12 months: Yes - Alcohol/Substance Use Hx Alcohol Use: No - Social History History of Recent Travel: No Home Medications - Allergies Allergies/Adverse Reactions: Allergies Allergy/AdvReac Type Severity Reaction Status Date / Time No Known Allergies Allergy Verified 07/05/17 01:49 Family Disease History - Family Disease History Family History: Unable to Obtain Review of Systems Unable to obtain ROS, reason: Unresponsive/intubated Physical Examination Vital Signs: Vital Signs Temperature 93.4 F L 07/05/17 22:00 Pulse Rate 86 07/05/17 22:07 Respiratory Rate 20 07/05/17 22:07 Blood Pressure 167/91 07/05/17 22:00 O2 Sat by Pulse Oximetry (%) 98 07/05/17 22:07 Constitutional: Yes: Well Nourished HENT: Yes: Other ((+) ETT) Neck: Yes: WNL, Supple Cardiovascular: Yes: WNL, Regular Rate and Rhythm Respiratory: Yes: Diminished Gastrointestinal: Yes: WNL, Normal Bowel Sounds, Soft, Abdomen, Obese Extremities: Yes: WNL Edema: Yes Edema: LLE: 1+, RLE: 1+ ...Motor Strength: WNL Labs: CBC, BMP 07/05/17 21:10 07/05/17 21:10 Problem List - Problems (1) Cardiopulmonary arrest with successful resuscitation Assessment/Plan: Pt remains intubated Follow serial cpk/troponin Code(s): I46.9 - CARDIAC ARREST, CAUSE UNSPECIFIED (2) Respiratory failure Assessment/Plan: Cont broad spectrum antibxs Follow cultures Code(s): J96.90 - RESPIRATORY FAILURE, UNSP, UNSP W HYPOXIA OR HYPERCAPNIA (3) Acute on chronic diastolic CHF (congestive heart failure) Assessment/Plan: Pt given lasix Code(s): I50.33 - ACUTE ON CHRONIC DIASTOLIC (CONGESTIVE) HEART FAILURE (4) Uncontrolled diabetes mellitus Assessment/Plan: Insulin drip Code(s): E11.65 - TYPE 2 DIABETES MELLITUS WITH HYPERGLYCEMIA
[2017-07-06] MEDS: PIPERACILLIN/TAZOB 2.25 GM 2.25 GM in DEXTROSE 5%-WATER - 50 ML IVPB SCH ×2 (02:20→10:35)
[2017-07-06] MEDS ORDERED: PROPOFOL 1,000,000 MCG/100 ML VIAL ONE (02:27)
[2017-07-06] MEDS: PROPOFOL 1,000,000 MCG/100 ML VIAL IVPB SCH (02:34)
[2017-07-06 06:34] LABS: INR 1.18 (0.82-1.09); PROTHROMBIN TIME (PATIENT) 13.3 SEC (9.98-11.88)
[2017-07-06 06:38] LABS: MCH 27.4 pg (25.7-33.7); MCHC 32.4 g/dl (32.0-35.9); MEAN CELL VOLUME 84.7 fl (80-96); MEAN PLT VOLUME 8.3 fl (7.5-11.1); PLATELET COUNT 282 K/MM3 (134-434); RDW 17.1 % (11.9-15.9); WHITE BLOOD COUNT 25.6 K/mm3 (4.0-10.0)
[2017-07-06 06:50] LABS: ALBUMIN 2.5 g/dl (3.4-5.0); ANION GAP 14 (8-16); CALCIUM 7.5 mg/dL (8.5-10.1); CO2 18 mmol/L (21-32); CREATININE 3.7 mg/dL (0.7-1.3); MAGNESIUM 1.9 mg/dL (1.8-2.4); PHOSPHOROUS 4.3 mg/dL (2.5-4.9); SGOT/AST 18 U/L (15-37); SGPT/ALT 26 U/L (12-78)
[2017-07-06 06:51] LABS: ALK PHOS 94 U/L (45-117); BILIRUBIN,TOTAL 0.3 mg/dL (0.2-1.0); TOT PROT 6.6 g/dl (6.4-8.2)
[2017-07-06 06:57] LABS: GLUCOSE,RANDOM 554 mg/dL (74-106)
[2017-07-06] MEDS: FENTANYL INJECTION 500 MCG in DEXTROSE 5%-WATER - 90 ML IVPB SCH (07:04)
[2017-07-06 07:27] LABS: ARTERIAL BLD GAS O2 SATURATION 97.2 % (90-98.9); ARTERIAL BLOOD GAS BASE EXCESS -8.5 meq/l (-2-2); ARTERIAL BLOOD GAS HCO3 16.1 meq/L (22-26); ARTERIAL BLOOD GAS pH 7.32 (7.35-7.45)
[2017-07-06 07:29] LABS: ART PUNCT SITE ARTERIAL LINE; LPM/O2% 100; MECH. VENT. YES; PT. ON O2? YES; TYPE OF O2 MECH VENT; VENT RATE 28; VT/PRESS 500
--- NOTE | 2017-07-06 07:30 | PN ---
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 [facility]. Patient walked into ER SOB and evloved to cardiopulmonary arrest 11 minutes per nursing staff. Currently intubated. He has been a very stable patient coming to clinic regularly albeit has history of hypertension Diabetes and chronic kidney disease and hypertension. He is followed by Dr Moore often. He smokes but does not use alcohol or drugs. Treated for sepsis Vanco and Kristeln for possible sepsis wiath hypothermia. He sees Dr Francois for cardiology - Current Medication List Current Medications: Active Medications Albuterol Sulfate (Ventolin 0.083% Nebulizer Soln -) 1 amp NEB Q4H PRN PRN Reason: SHORT OF BREATH/WHEEZING Propofol (Diprivan -) 1,000,000 mcg in 100 mls @ 2.858 mls/hr IVPB TITR PAULINE; 5 MCG/KG/MIN PRN Reason: Protocol Last Admin: 07/06/17 02:34 Dose: 14.9 mcg/kg/min, 8.516 mls/hr Fentanyl 500 mcg/ Dextrose 100 mls @ 20 mls/hr IVPB TITR PAULINE PRN Reason: 100 MCG/HR Last Admin: 07/06/17 07:04 Dose: 20 mls/hr Nicardipine HCl 25 mg/ (Dextrose) 250 mls @ 25 mls/hr IVPB TITR PAULINE; 2.5 MG/HR PRN Reason: Protocol Piperacillin Sod/Tazobactam (Sod 2.25 gm/ Dextrose) 50 mls @ 100 mls/hr IVPB Q8H-IV PAULINE Last Admin: 07/06/17 02:20 Dose: 100 mls/hr - Objective Vital Signs: Vital Signs Temperature 95.8 F L 07/06/17 02:00 Pulse Rate 100 H 07/06/17 04:00 Respiratory Rate 28 H 07/06/17 06:19 Blood Pressure 140/107 07/06/17 04:00 O2 Sat by Pulse Oximetry (%) 98 07/05/17 22:07 HENT: Yes: WNL, Atraumatic Neck: Yes: WNL, Supple, Other (CVP) Cardiovascular: Yes: S1, S2. No: Murmur Respiratory: Yes: WNL, Regular, CTA Bilaterally. No: Rhonchi Gastrointestinal: Yes: WNL, Normal Bowel Sounds, Soft. No: Hepatomegaly, Tenderness, Tenderness, Rebound Extremities: No: Cold, Cool, Cyanosis Labs: CBC, BMP 07/06/17 05:00 07/06/17 05:00 INR, PTT INR 1.18 (0.82-1.09) H 07/06/17 05:00 Problem List - Problems (1) Sepsis Code(s): A41.9 - SEPSIS, UNSPECIFIED ORGANISM (2) Cardiopulmonary arrest with successful resuscitation Code(s): I46.9 - CARDIAC ARREST, CAUSE UNSPECIFIED (3) Uncontrolled diabetes mellitus Code(s): E11.65 - TYPE 2 DIABETES MELLITUS WITH HYPERGLYCEMIA (4) Chronic kidney disease Code(s): N18.9 - CHRONIC KIDNEY DISEASE, UNSPECIFIED (5) Hypertension Code(s): I10 - ESSENTIAL (PRIMARY) HYPERTENSION Assessment/Plan Microbiology 07/05/17 13:30 Urine - Urine Rocha Legionella Antigen - Final 07/05/17 13:30 Urine - Urine Rocha Streptococcus pneumoniae Antigen (M - Final Laboratory Tests 07/05/17 07/05/17 07/05/17 00:45 02:10 05:00 WBC Hct Plt Count Neutrophils % 24.0 L Neutrophils % (Manual) 24.0 L Lymphocytes % 70.0 H Lymphocytes % (Manual) 70.0 H Monocytes % 4.0 Monocytes % (Manual) 4 ABG pH ABG pCO2 at Pt Temp ABG pO2 at Pt Temp Oxygen Flow Rate Vent Rate BUN Random Glucose Lactic Acid 2.5 H* Calcium Total Bilirubin AST Troponin I Urine WBC (Auto) 3 Urine RBC (Auto) 14 07/05/17 07/05/17 07/06/17 05:00 21:10 05:00 WBC 25.6 H Hct 33.1 L Plt Count 282 Neutrophils % Neutrophils % (Manual) Lymphocytes % Lymphocytes % (Manual) Monocytes % Monocytes % (Manual) ABG pH ABG pCO2 at Pt Temp ABG pO2 at Pt Temp Oxygen Flow Rate Vent Rate BUN Random Glucose Lactic Acid 1.8 Calcium Total Bilirubin AST Troponin I 0.36 H D Urine WBC (Auto) Urine RBC (Auto) 07/06/17 07/06/17 05:00 07:15 WBC Hct Plt Count Neutrophils % Neutrophils % (Manual) Lymphocytes % Lymphocytes % (Manual) Monocytes % Monocytes % (Manual) ABG pH 7.32 L ABG pCO2 at Pt Temp 31.9 L ABG pO2 at Pt Temp 159.0 H* Oxygen Flow Rate 100 Vent Rate 28 BUN 50 H D Random Glucose 554 H* Lactic Acid Calcium 7.5 L D Total Bilirubin 0.3 D AST 18 Troponin I Urine WBC (Auto) Urine RBC (Auto) Assessment Cardiopulmonary arrest Smoker Pulmonary edema Sepsis syndrome considered Leukomoid reaction secondary code ? Chronic kidney disease Hypertension HIV stable on meds Prezista Norvir and Dolutegravir Plan Await cultures Continue Zosyn empiric therapy Patient should be seen by Dr Munroe who sees him Dr Moore renal HIV meds on hold Amanuel ROJAS ICU critical care time spent 40 minutes
[2017-07-06 09:11] LABS: BASO % 0.3 % (0-2.0); MCH 26.9 pg (25.7-33.7); MCHC 31.8 g/dl (32.0-35.9); MEAN CELL VOLUME 84.8 fl (80-96); MEAN PLT VOLUME 8.1 fl (7.5-11.1); NEUT % 89.6 % (42.8-82.8); PLATELET COUNT 278 K/MM3 (134-434); WHITE BLOOD COUNT 26.1 K/mm3 (4.0-10.0)
--- NOTE | 2017-07-06 09:38 | CON.CARD ---
Consult Consult Specialty:: cardio Referred by:: dr vides Reason for Consultation:: acute resp failure - History of Present Illness Chief Complaint: sob History of Present Illness: 56 yo male presented with sob. history from notes (pt intubated/sedated). came to ER with few days of sob and wheeze, acutely worse on DOA. became agitated in EMS. then unresponsive and pulseless in ER--PEA cardiac arrest resuscitated. in ER initially hypoxic to sat of 82%. ABG with metabolic acidosis, PO2 95 on 100%. bp was 180 systolic and HR 130s. PMH: mild LV dysfunction HIV HTN HPL CKD - Past Medical History Cardio/Vascular: Yes: CHF, HTN, Hyperlipdemia Renal/: Yes: Renal Inusuff Infectious Disease: Yes: AIDS, HIV Endocrine: Yes: Diabetes Mellitus - Past Surgical History Past Surgical History: Yes: None - Alcohol/Substance Use Hx Alcohol Use: No - Smoking History Smoking history: Current every day smoker Have you smoked in the past 12 months: Yes - Social History Usual Living Arrangement: With Significant Other History of Recent Travel: No Home Medications - Allergies Allergies/Adverse Reactions: Allergies Allergy/AdvReac Type Severity Reaction Status Date / Time No Known Allergies Allergy Verified 07/05/17 01:49 Family Disease History - Family Disease History Family History: Unable to Obtain Review of Systems Unable to obtain ROS, reason: intubated/sedated Vital Signs: Vital Signs Temperature 95.8 F L 07/06/17 02:00 Pulse Rate 95 H 07/06/17 07:00 Respiratory Rate 28 H 07/06/17 07:00 Blood Pressure 164/91 07/06/17 07:00 O2 Sat by Pulse Oximetry (%) 98 07/05/17 22:07 Constitutional: Yes: Well Nourished, No Distress Eyes: No: Sclera Icterus HENT: No: Nasal Congestion Neck: No: Decreased ROM Respiratory: Yes: CTA Bilaterally (anteriorly (pt intubated)). No: Accessory Muscle Use, Rales, Wheezes Gastrointestinal: Yes: Normal Bowel Sounds. No: Distention, Hepatomegaly, Palpable Mass, Tenderness Cardiovascular: Yes: Regular Rate and Rhythm JVD: No Carotid Bruit: No PMI: Non-Displaced Heart Sounds: Yes: S1, S2. No: Gallop Murmur: No: Systolic Murmur, Diastolic Murmur Musculoskeletal: Yes: Other (No kyphosis) Extremities: No: Cool (feet), Cyanosis Edema: No Peripheral Pulses: 2+ Left Carotid, 2+ Right Carotid, 2+ Left Doralis Pedis, 2+ Right Dorsalis Pedis Integumentary: No: Jaundice Neurological: No: Alert, Oriented Psychiatric: No: Agitated - Other Data Labs, Other Data: CBC, BMP 07/06/17 05:00 07/06/17 05:00 INR, PTT INR 1.18 (0.82-1.09) H 07/06/17 05:00 Laboratory Tests 05/26/17 07/05/17 07/05/17 09:15 00:45 00:45 WBC 26.4 H D Hgb 9.4 L D Plt Count 277 ABG pH ABG pCO2 at Pt Temp ABG pO2 at Pt Temp Oxygen Flow Rate Sodium Potassium Carbon Dioxide BUN Creatinine 2.9 H Lactic Acid AST ALT Troponin I 0.07 H B-Natriuretic Peptide Albumin 07/05/17 07/05/17 07/05/17 00:45 05:00 05:00 WBC Hgb Plt Count ABG pH ABG pCO2 at Pt Temp ABG pO2 at Pt Temp Oxygen Flow Rate Sodium Potassium Carbon Dioxide BUN Creatinine Lactic Acid 2.5 H* AST ALT Troponin I 0.36 H D B-Natriuretic Peptide 93773.37 H Albumin 07/06/17 07/06/17 07/06/17 05:00 05:00 07:15 WBC 26.1 H Hgb 10.7 L Plt Count 278 ABG pH 7.32 L ABG pCO2 at Pt Temp 31.9 L ABG pO2 at Pt Temp 159.0 H* Oxygen Flow Rate 100 Sodium 136 Potassium 3.9 Carbon Dioxide 18 L D BUN 50 H D Creatinine 3.7 H D Lactic Acid AST 18 ALT 26 D Troponin I B-Natriuretic Peptide Albumin 2.5 L tele: NSR, no events Assessment/Plan CXR 07/05 #1 (images reviewed): diffuse, severe airspace opacities, bilat effusions, vasculature not well seen 07/05 #2: no change 07/06: effusions have resolved, diffuse infiltrates improving ECG #1: sinus tach, normal axis, +/- long QT (mild); no pathol q waves; borderline ischemic appearing ST depressions inferior leads and V6 (no old but this was not reported on 12/24 office ecg) #2: NSR, STs resolving MPI 05/26: no ischemia, EF 33% (global Echo 05/26 (): mod LVE, mild global LV hypo; nl RV; mild LAE; mild MR Echo 12/24: nl LV and RV, nl valves acute hypoxic resp failure, acute on chronic syst CHF: -CXR trend suggestive of acute chf, improved this am partially s/p diuresis -BNP 27K (no baseline) -resting echo 05/26 with mild LV dysfunction, ? worse (nuclear estimated EF 33%) , ? diast chf component mixed in -? underlying CAD with balanced ischemia on nuclear--of note, ECG initially here with borderline ST changes for ischemia -trop intermediate range x 2 but rising (0.07 to 0.3)--f/u serial enzymes -received lasix 40mg iv early this am, repeat dose now and reassess cxr, O2 req' t and labs in am -repeat echo -consider invasive ischemia eval (cath) prior to hosp discharge, sooner if acute ischemic s/sx present cardiac arrest (PEA): -sec to acute chf/hypoxia most likely -telem with stable rhythm (sinus) -cont monitoring -optimization of chf and acid-base status, as doing FLORECITA on CKD: -baseline creat here 2.8 in 05/26 -initially 2.4 on presentation to ER, rising this am -suspect hypoperfusion with lactic acidosis in setting of CHF decompensation as cause, ? cardiorenal syndrome -observe creat trend with diuresis and chf optimization acute met acidosis, elevated lactate: -sec to acute chf HTN: -varying normal to moderately elevated -observe trend with diuresis -resume home meds once PO access available (hctz 25, lisin 20 qd) HIV/Hep C: -per ID team est time in review of data and formulating of mgmt plan = 40 min
[2017-07-06] MEDS ORDERED: FUROSEMIDE 40 MG/4 ML INJECTABLE VIAL IVPUSH ONE (10:00)
--- NOTE | 2017-07-06 10:18 | CONSULT ---
Consult - text type - Consultation Consultation Note: Neurology History of Present Illness: Mr. Welch is a 56 y/o man w/ HTN, HL, DM, CKD, HIV on HAART, EF 49.5%, BIBA for SOB. Reportedly had been experiencing worsening SOB & SAMUELS w/ assoc wheezing for several days prior to admission. While in route developed further respiratory distress and in ER had agonal breathing and unresponsive. No pulse noted on stretcher transferand chest compressions were initiated. The Pt was resuscitated per ACLS protocol for approximately 5 minutes according to note, receiving epi x 2, bicarb x 2. Pt was intubated and placed on ventilator and given nebulizers and steroids. Pt admitted to the ICU s/p Cardiac Arrest and respiratory failure. The patient has been on propofol but having myoclonic twitches especially in right foot. Given his history, this is likely myoclonic jerks 2/2 to anoxic brain injury. He did not demonstrate gag, not responding to pain, there is minimal pupil contriction from 2mm to 1mm and therefore does not meet criteria for brain . However, only minimal brainstem activity and therefore significant concern regarding patient's ability to recover and prognosis. - Past Medical History Cardio/Vascular: Yes: CHF, HTN, Hyperlipdemia Renal/: Yes: Renal Inusuff Infectious Disease: Yes: AIDS, HIV Endocrine: Yes: Diabetes Mellitus - Alcohol/Substance Use Hx Alcohol Use: No - Smoking History Smoking history: Current every day smoker Have you smoked in the past 12 months: Yes - Social History Usual Living Arrangement: With Significant Other Place of : [facility] History of Recent Travel: No Home Medications - Allergies Allergies/Adverse Reactions: Allergies Allergy/AdvReac Type Severity Reaction Status Date / Time No Known Allergies Allergy Verified 07/05/17 01:49 Family Disease History - Family Disease History Family History: Unable to Obtain (INTUBATED, S/P CARDIAC ARREST) Review of Systems Unable to obtain ROS, reason: INTUBATED, S/P CARDIAC AR Physical Exam Vital Signs: Last Vital Signs Temp Pulse Resp BP Pulse Ox 95.8 F L 95 H 28 H 127/71 100 07/06/17 02:00 07/06/17 09:58 07/06/17 09:58 07/06/17 09:58 07/06/17 10:07 Constitutional: Yes: Well Nourished, No Distress, Calm Eyes: Yes: PERRL, Other (R Upward Lat Gaze.) HENT: Yes: WNL, Atraumatic, Normocephalic Neck: Yes: WNL, Supple, Trachea Midline Cardiovascular: Yes: WNL, Regular Rate and Rhythm Respiratory: Yes: Diminished, Mechanically Ventilated, Wheezes Gastrointestinal: Yes: Abdomen, Obese, Distention, Hyperactive Bowel Sounds ...Rectal Exam: Yes: Deferred Renal/: Yes: Rocha Present Breast(s): Yes: WNL Extremities: Yes: Other (Clubbed Fingers.) Edema: Yes Edema: LLE: 1+, RLE: 1+ Peripheral Pulses WNL: Yes Integumentary: Yes: WNL Neurological: No facial droop, not responding to pain, not gagging on suction, R pupil 2mm --> 1mm, no spontaneous movement, R foot myoclonic twitching noted CBCD WBC 26.1 K/mm3 (4.0-10.0) H 07/06/17 05:00 RBC 3.97 M/mm3 (4.00-5.60) L 07/06/17 05:00 Hgb 10.7 GM/dL (11.7-16.9) L 07/06/17 05:00 Hct 33.7 % (35.4-49) L 07/06/17 05:00 MCV 84.8 fl (80-96) 07/06/17 05:00 MCHC 31.8 g/dl (32.0-35.9) L 07/06/17 05:00 RDW 17.0 % (11.9-15.9) H 07/06/17 05:00 Plt Count 278 K/MM3 (134-434) 07/06/17 05:00 MPV 8.1 fl (7.5-11.1) 07/06/17 05:00 CMP Sodium 136 mmol/L (136-145) 07/06/17 05:00 Potassium 3.9 mmol/L (3.5-5.1) 07/06/17 05:00 Chloride 104 mmol/L (98-107) D 07/06/17 05:00 Carbon Dioxide 18 mmol/L (21-32) L D 07/06/17 05:00 Anion Gap 14 (8-16) 07/06/17 05:00 BUN 50 mg/dL (7-18) H D 07/06/17 05:00 Creatinine 3.7 mg/dL (0.7-1.3) H D 07/06/17 05:00 Creat Clearance w eGFR 17.02 (>60) 07/06/17 05:00 Random Glucose 554 mg/dL (74-106) H* 07/06/17 05:00 Calcium 7.5 mg/dL (8.5-10.1) L D 07/06/17 05:00 Total Bilirubin 0.3 mg/dL (0.2-1.0) D 07/06/17 05:00 AST 18 U/L (15-37) 07/06/17 05:00 ALT 26 U/L (12-78) D 07/06/17 05:00 Alkaline Phosphatase 94 U/L (45-117) 07/06/17 05:00 Total Protein 6.6 g/dl (6.4-8.2) 07/06/17 05:00 Albumin 2.5 g/dl (3.4-5.0) L 07/06/17 05:00 CARDIAC ENZYMES Creatine Kinase 117 IU/L (39-308) 07/05/17 00:45 Troponin I 0.36 ng/ml (0.00-0.05) H D 07/05/17 05:00 Plan: 56 y/o man w/ HTN, HL, DM, CKD, HIV on HAART, EF 49.5%, BIBA for SOB. Reportedly had been experiencing worsening SOB & SAMUELS w/ assoc wheezing for several days prior to admission. While in route developed further respiratory distress and in ER had agonal breathing and unresponsive. No pulse noted on stretcher transferand chest compressions were initiated. The Pt was resuscitated per ACLS protocol for approximately 5 minutes according to note, receiving epi x 2, bicarb x 2. Pt was intubated and placed on ventilator and given nebulizers and steroids. Pt admitted to the ICU s/p Cardiac Arrest and respiratory failure. The patient has been on propofol but having myoclonic twitches especially in right foot. Minimal pupil contriction from 2mm to 1mm and therefore does not meet criteria for brain . However, only minimal brainstem activity and therefore significant concern regarding patient's ability to recover and prognosis. Given his history, this is likely myoclonic jerks 2/2 to anoxic brain injury. This would not require AEDs and would improve if anoxic brain injury improves However, will start klonipin 1mg twice daily to see if provides any improvement Continue ICU care Continue Mechanical ventilation, wean as able Propofol on board, wean as able Monitor mental status for any improvement Cardiology following close Monitor blood pressure, support as required IV Abx for possible PNA as needed CT head when able Will order EEG for now MRI brain when stable Critical Care Time 60 mins
[2017-07-06] MEDS ORDERED: clonazePAM 2 MG TABLET PO PRN (10:19)
[2017-07-06] MEDS ORDERED: PT OWN MED DRAWER 7, Y5N ONE (10:30)
[2017-07-06 11:48] LABS: TROPONIN I 0.53 ng/ml (0.00-0.05)
--- NOTE | 2017-07-06 12:25 | PN ---
Teaching Attending Note Name of Resident: Mukesh Niño ATTENDING PHYSICIAN STATEMENT I saw and evaluated the patient. I reviewed the resident's note and discussed the case with the resident. I agree with the resident's findings and plan as documented. SUBJECTIVE: Patient seen and examined in the ICU. Intubated and sedated on propofol. Paralytic agent stopped overnight. No pressors. Myoclonus noted. AC mode of vent, 80% FiO2. Intake & Output 07/03/17 07/04/17 07/05/17 07/06/17 23:59 23:59 23:59 23:59 Intake Total 761.8 315 Output Total 3000 800 Balance -2238.2 -485 Weight 218 lb 4.122 oz 210 lb 5 oz Last Vital Signs Temp Pulse Resp BP Pulse Ox 99.1 F 95 H 28 H 127/71 100 07/06/17 08:00 07/06/17 09:58 07/06/17 11:26 07/06/17 09:58 07/06/17 10:16 Active Medications Albuterol Sulfate (Ventolin 0.083% Nebulizer Soln -) 1 amp NEB Q4H PRN PRN Reason: SHORT OF BREATH/WHEEZING Clonazepam (Klonopin -) 1 mg PO BID PRN PRN Reason: Twitching Propofol (Diprivan -) 1,000,000 mcg in 100 mls @ 2.858 mls/hr IVPB TITR PAULINE; 5 MCG/KG/MIN PRN Reason: Protocol Last Titration: 07/06/17 09:21 Dose: 38.6 mcg/kg/min, 22.061 mls/hr Fentanyl 500 mcg/ Dextrose 100 mls @ 20 mls/hr IVPB TITR PAULINE PRN Reason: 100 MCG/HR Last Admin: 07/06/17 07:04 Dose: 20 mls/hr Nicardipine HCl 25 mg/ (Dextrose) 250 mls @ 25 mls/hr IVPB TITR PAULINE; 2.5 MG/HR PRN Reason: Protocol Piperacillin Sod/Tazobactam (Sod 2.25 gm/ Dextrose) 50 mls @ 100 mls/hr IVPB Q8H-IV PAULINE Last Admin: 07/06/17 10:35 Dose: 100 mls/hr Constitutional: Yes: Intubated, non-responsive Eyes: Yes: Pupils small and fixed, Upward gaze HENT: Yes: WNL, Atraumatic, Normocephalic Neck: Yes: WNL, Supple, Trachea Midline Cardiovascular: Yes: Regular Rate and Rhythm Respiratory: Yes: Diminished BS at the bases, Mechanically Ventilated Gastrointestinal: Yes: Abdomen, Obese, Hypoactive Bowel Sounds ...Rectal Exam: Yes: Deferred Renal/: Yes: Rocha Present Breast(s): Yes: WNL Extremities: Yes: Cool Edema: Yes Edema: LLE: 1+, RLE: 1+ Peripheral Pulses WNL: Yes Integumentary: Yes: WNL Neurological: Yes: Nonresponsive ...Motor Strength: WNL Psychiatric: Yes: WNL Labs: Laboratory Results - last 24 hr 07/05/17 07/05/17 07/05/17 21:00 21:10 21:10 WBC 23.7 H RBC 3.81 L Hgb 10.3 L Hct 32.5 L MCV 85.4 MCH 27.2 MCHC 31.8 L RDW 16.7 H Plt Count 267 MPV 8.2 Neutrophils % Lymphocytes % Monocytes % Eosinophils % Basophils % Manual Slide Review No Result Required. PT with INR INR Anticoagulation Therapy Y Puncture Site Arterial line ABG pH 7.23 L* ABG pCO2 at Pt Temp 39.3 ABG pO2 at Pt Temp 88.9 D ABG HCO3 15.9 L ABG O2 Sat (Measured) 95.6 ABG O2 Content 14.9 L ABG Base Excess -10.6 L* Sorin Test Not applicable O2 Delivery Device Mechanical vent Oxygen Flow Rate 100% Vent Mode A/c Vent Rate 20 Mechanical Rate Yes PEEP 8.0 Pressure Support Vent 500 Sodium 143 Potassium 3.3 L D Chloride 116 H Carbon Dioxide 14 L D Anion Gap 13 BUN 36 H Creatinine 2.7 H Creat Clearance w eGFR Random Glucose 478 H* D Lactic Acid Calcium 5.4 L* D Phosphorus 3.7 Magnesium 1.4 L D Total Bilirubin AST ALT Alkaline Phosphatase Creatine Kinase Troponin I Total Protein Albumin Tobramycin Trough 07/05/17 07/05/17 07/06/17 21:10 21:10 05:00 WBC RBC Hgb Hct MCV MCH MCHC RDW Plt Count MPV Neutrophils % Lymphocytes % Monocytes % Eosinophils % Basophils % Manual Slide Review PT with INR 13.30 H INR 1.18 H Anticoagulation Therapy Puncture Site ABG pH ABG pCO2 at Pt Temp ABG pO2 at Pt Temp ABG HCO3 ABG O2 Sat (Measured) ABG O2 Content ABG Base Excess Sorin Test O2 Delivery Device Oxygen Flow Rate Vent Mode Vent Rate Mechanical Rate PEEP Pressure Support Vent Sodium Potassium Chloride Carbon Dioxide Anion Gap BUN Creatinine Creat Clearance w eGFR Random Glucose Lactic Acid 1.8 Calcium Phosphorus Magnesium Total Bilirubin AST ALT Alkaline Phosphatase Creatine Kinase Troponin I Total Protein Albumin Tobramycin Trough 3.1 H* 07/06/17 07/06/17 07/06/17 05:00 05:00 05:00 WBC 25.6 H RBC 3.91 L Hgb 10.7 L Hct 33.1 L MCV 84.7 MCH 27.4 MCHC 32.4 RDW 17.1 H Plt Count 282 MPV 8.3 Neutrophils % Lymphocytes % Monocytes % Eosinophils % Basophils % Manual Slide Review No Result Required. PT with INR 13.30 H INR 1.18 H Anticoagulation Therapy Puncture Site ABG pH ABG pCO2 at Pt Temp ABG pO2 at Pt Temp ABG HCO3 ABG O2 Sat (Measured) ABG O2 Content ABG Base Excess Sorin Test O2 Delivery Device Oxygen Flow Rate Vent Mode Vent Rate Mechanical Rate PEEP Pressure Support Vent Sodium 136 Potassium 3.9 Chloride 104 D Carbon Dioxide 18 L D Anion Gap 14 BUN 50 H D Creatinine 3.7 H D Creat Clearance w eGFR 17.02 Random Glucose 554 H* Lactic Acid Calcium 7.5 L D Phosphorus 4.3 Magnesium 1.9 D Total Bilirubin 0.3 D AST 18 ALT 26 D Alkaline Phosphatase 94 Creatine Kinase Troponin I Total Protein 6.6 Albumin 2.5 L Tobramycin Trough 07/06/17 07/06/17 07/06/17 05:00 07:15 10:55 WBC 26.1 H RBC 3.97 L Hgb 10.7 L Hct 33.7 L MCV 84.8 MCH 26.9 MCHC 31.8 L RDW 17.0 H Plt Count 278 MPV 8.1 Neutrophils % 89.6 H D Lymphocytes % 5.6 L D Monocytes % 4.5 Eosinophils % 0.0 D Basophils % 0.3 Manual Slide Review PT with INR INR Anticoagulation Therapy Puncture Site Arterial line ABG pH 7.32 L ABG pCO2 at Pt Temp 31.9 L ABG pO2 at Pt Temp 159.0 H* ABG HCO3 16.1 L ABG O2 Sat (Measured) 97.2 ABG O2 Content 14.8 L ABG Base Excess -8.5 L Sorin Test Not applicable O2 Delivery Device Mech vent Oxygen Flow Rate 100 Vent Mode A/c Vent Rate 28 Mechanical Rate Yes PEEP 8.0 Pressure Support Vent 500 Sodium Potassium Chloride Carbon Dioxide Anion Gap BUN Creatinine Creat Clearance w eGFR Random Glucose Lactic Acid Calcium Phosphorus Magnesium Total Bilirubin AST ALT Alkaline Phosphatase Creatine Kinase 232 Troponin I 0.53 H D Total Protein Albumin Tobramycin Trough Problem List - Problems (1) CHF (congestive heart failure) Code(s): I50.9 - HEART FAILURE, UNSPECIFIED Qualifiers: Congestive heart failure type: unspecified congestive heart failure type Congestive heart failure chronicity: unspecified congestive heart failure chronicity Qualified Code(s): I50.9 - Heart failure, unspecified (2) Cardiopulmonary arrest with successful resuscitation Code(s): I46.9 - CARDIAC ARREST, CAUSE UNSPECIFIED (3) Pneumonia Code(s): J18.9 - PNEUMONIA, UNSPECIFIED ORGANISM (4) Respiratory failure Code(s): J96.90 - RESPIRATORY FAILURE, UNSP, UNSP W HYPOXIA OR HYPERCAPNIA Assessment/Plan ASSESS: This is a 56 YOM w/ HTN, HL, DM, CKD, & HIV/AIDS on HAART admitted now w / resp fail s/p cardiac arrest m/l 2/2 flash pulm edema +/- pna. PLAN: Hold Vecuronium drip for now Wean FiO2 as tolerated Full Sedation for Vent Synch BD TX Follow cultures ID called Cardiology evaluation ECHO Follow CVP Monitor off Lasix Passive rewarm SCDs PPI Dr Glez Critical care time spent in reviewing chart, evaluating patient and formulating plan 40 minutes.
[2017-07-06] MEDS ORDERED: fentaNYL CITRATE 250 MCG/5 ML VIAL ONE ×2 (13:37→20:14)
--- NOTE | 2017-07-06 14:14 | CON.NEP ---
Consult Consult Specialty:: nephrology Reason for Consultation:: CKD - History of Present Illness Chief Complaint: s/p cardiac arrest, CKD History of Present Illness: History was taken from medical records. The pt is on mechanical ventilation, sedated. 56 y/o man w/ HTN, HL, DM, CKD, HIV on HAART, EF 49.5%, BIBA SOB. A/P reports given to the ED by EMS, pt's daughter, & pt's friend the pt had been experiencing worsening SOB & SAMUELS with associated wheezing X past few days. A/p EMS, enroute to ED, pt's condition acutely worsened & he was noted to have bilateral wheezes w/ poor aeration. Attempts to place pt on CPAP en route were unsuccessful 2/2 AMS w/ agitation. U/A to ED pt was noted unresponsive & breathing agonally. No pulse noted on stretcher transferand chest compressions were initiated. The Pt was resuscitated per ACLS protocol for approximately 5 minutes, receiving epi x 2, bicarb x 2. First pulse check revealed PEA arrest. During this time the pt was intubated by DL, w/ placement of 7.5 ETT. Second pulse check revealed ROSC & A-Fib on the monitor. Pt was placed on ventilator and given nebulizers and steroids. BP 160s systolic, HR 80s, satting 100% on ventilator. Pt was given lasix 40mg IV for pulmonary edema. Labs results: WBC 26.4, ABG pH 6.98, Cr 2.4, BNP>27,000. Pt admitted now to the ICU s/p Cardiac Arrest 2/2 resp fail m/l Pulmonary edema +/- PNA. - History Source History Provided By: Medical Record Limitations to Obtaining History: Intubated - Past Medical History Cardio/Vascular: Yes: CHF, HTN, Hyperlipdemia Renal/: Yes: Renal Inusuff (CKD) Infectious Disease: Yes: AIDS, HIV Endocrine: Yes: Diabetes Mellitus - Past Surgical History Past Surgical History: Yes: None - Alcohol/Substance Use Hx Alcohol Use: No - Smoking History Smoking history: Current every day smoker Have you smoked in the past 12 months: Yes - Social History Usual Living Arrangement: With Significant Other History of Recent Travel: No Home Medications - Allergies Allergies/Adverse Reactions: Allergies Allergy/AdvReac Type Severity Reaction Status Date / Time No Known Allergies Allergy Verified 06/03/17 14:06 - Home Medications Home Medications: Ambulatory Orders Insulin Glargine,Hum.rec.anlog [Lantus Solostar PEN -] 20 units SQ BID 06/03/17 Insulin Lispro [Humalog Kwikpen U-100] 4 - 14 unit SQ TID #1 box 06/08/17 Darunavir Ethanolate [Prezista] 800 mg PO DAILY #30 tablet 07/03/17 Dolutegravir Sodium [Tivicay] 50 mg PO DAILY #30 tablet 07/03/17 Lisinopril 10 mg PO DAILY #60 tablet 07/03/17 Ritonavir [Norvir] 100 mg NR DAILY #30 cap 07/03/17 Family Disease History - Family Disease History Family History: Unable to Obtain Review of Systems Unable to obtain ROS, reason: intubated and sedated Nephrology Consult - Height Height: 6 ft - Weight Weight: 210 lb 5 oz - BMI Body Mass Index (BMI): 28.5 - Lab Results CBC,BMP: CBC, BMP 07/06/17 05:00 07/06/17 05:00 Anion Gap: Anion Gap Anion Gap 14 (8-16) 07/06/17 05:00 - Physical Examination Vital Signs: Vital Signs Temperature 98.1 F 07/06/17 13:58 Pulse Rate 94 H 07/06/17 13:58 Respiratory Rate 28 H 07/06/17 13:58 Blood Pressure 114/67 07/06/17 13:58 O2 Sat by Pulse Oximetry (%) 100 07/06/17 10:16 Constitutional: Yes: Well Nourished Eyes: Yes: PERRL, Other (EOMI not assessed, not following commands) HENT: Yes: WNL, Atraumatic, Normocephalic. No: Nasal Congestion Neck: Yes: WNL, Supple, Trachea Midline Cardiovascular: Yes: WNL, Regular Rate and Rhythm, Murmur, S1, S2. No: Gallop Respiratory: Yes: WNL, Regular, CTA Bilaterally, Mechanically Ventilated. No: Accessory Muscle Use, Cough Gastrointestinal: Yes: WNL, Normal Bowel Sounds, Soft, Abdomen, Obese. No: Tenderness Renal/: Yes: WNL, Rocha Present (yellow urine). No: Hematuria Extremities: Yes: WNL Edema: LUE: Trace, RUE: Trace, LLE: 1+, RLE: 1+ Neurological: Yes: Other (sedated) Problem List - Problems (1) Acute on chronic diastolic CHF (congestive heart failure) Code(s): I50.33 - ACUTE ON CHRONIC DIASTOLIC (CONGESTIVE) HEART FAILURE (2) Cardiopulmonary arrest with successful resuscitation Code(s): I46.9 - CARDIAC ARREST, CAUSE UNSPECIFIED (3) Chronic kidney disease Code(s): N18.9 - CHRONIC KIDNEY DISEASE, UNSPECIFIED (4) Hypertension Code(s): I10 - ESSENTIAL (PRIMARY) HYPERTENSION (5) Pneumonia Code(s): J18.9 - PNEUMONIA, UNSPECIFIED ORGANISM (6) Respiratory failure Code(s): J96.90 - RESPIRATORY FAILURE, UNSP, UNSP W HYPOXIA OR HYPERCAPNIA (7) Uncontrolled diabetes mellitus Code(s): E11.65 - TYPE 2 DIABETES MELLITUS WITH HYPERGLYCEMIA (8) Nicotine dependence Code(s): F17.200 - NICOTINE DEPENDENCE, UNSPECIFIED, UNCOMPLICATED (9) GERD (gastroesophageal reflux disease) Code(s): K21.9 - GASTRO-ESOPHAGEAL REFLUX DISEASE WITHOUT ESOPHAGITIS (10) HIV (human immunodeficiency virus infection) Code(s): Z21 - ASYMPTOMATIC HUMAN IMMUNODEFICIENCY VIRUS INFECTION STATUS Assessment/Plan 56 YOM w/ HTN, HL, DM, CKD, & HIV/AIDS on HAART admitted for respiratory failure , s/p cardiac arrest, CKD, +/- pna. He is intubated on mechanical ventilation, admitted to ICU. 1 Acute on CKD 2 S/p cardiac arrest 3 respiratory failure 4 possible PNA 5 CHF 6 HIV on HAART 7 HTN 8 resp failure 9 DMII -acute decrease in kidney function due to s/p cardiac arrest, we will f/u renal US, urine electrolites, tomorrow's CMP -lasix given today in AM, will monitor I&O, cont monitoring BP, MAP over 65 -avoid nephrotoxic substances -f/u Cardiology recommendations, f/u ECHO -continue to monitor glucose, Insulin given -continue Zosyn and Vancomycin for PNA Thank you for this consultative opportunity. We will follow.
[2017-07-06 14:15] VITALS: BMI 28.5
[2017-07-06] MEDS ORDERED: INSULIN REGULAR 100 UNITS in SODIUM CHLORIDE 99 ML IVPB SCH ×2 (14:15→14:45)
--- NOTE | 2017-07-06 14:20 | EKG ---
Test Reason : Blood Pressure : / mmHG Vent. Rate : 090 BPM Atrial Rate : 090 BPM P-R Int : 166 ms QRS Dur : 094 ms QT Int : 382 ms P-R-T Axes : 066 046 095 degrees QTc Int : 467 ms NORMAL SINUS RHYTHM NONSPECIFIC ST AND T WAVE ABNORMALITY PROLONGED QT ABNORMAL ECG WHEN COMPARED WITH ECG OF 05-JUL-2017 00:55, Confirmed by MIGUEL TRAORE MD ([id number]) on 07/06/2017 2:19:52 PM Referred By: Vivek GILMAN Confirmed By:MIGUEL TRAORE MD
[2017-07-06] MEDS ORDERED: INSULIN (NOVOLOG) ASPART 100 UNITS/ML 10ML VIAL ONE (14:21)
--- NOTE | 2017-07-06 14:23 | EKG ---
Test Reason : Blood Pressure : / mmHG Vent. Rate : 094 BPM Atrial Rate : 340 BPM P-R Int : 000 ms QRS Dur : 096 ms QT Int : 378 ms P-R-T Axes : 039 059 245 degrees QTc Int : 472 ms UNDETERMINED RHYTHM , PROBABLE SINUS RHYTHM WITH SINUS ARRHYTHMIA PROLONGED QT ABNORMAL ECG NO PREVIOUS ECGS AVAILABLE Confirmed by MIGUEL TRAORE MD ([id number]) on 07/06/2017 2:23:35 PM Referred By: Confirmed By:MIGUEL TRAORE MD
--- NOTE | 2017-07-06 15:42 | PN ---
Physical Exam: SUBJECTIVE: Patient seen and examined at bedside. Pt intubated and sedated. OBJECTIVE: Vital Signs Period Temp Pulse Resp BP Sys/Del Castillo Pulse Ox Last 24 Hr 93.4 F-99.1 F 70-100 20-28 112-176/67-107 98-100 GENERAL: Intubated and sedated. HEAD: Normal with no signs of trauma. EYES: sclera anicteric, conjunctiva clear. No ptosis. ENT: oropharynx clear without exudates, moist mucous membranes. NECK: Trachea midline, full range of motion, supple. LUNGS: Breath sounds equal, clear to auscultation bilaterally, no wheezes, no crackles, no accessory muscle use. HEART: Regular rate and rhythm, S1, S2 without murmur, rub or gallop. ABDOMEN: Soft, nontender, nondistended, normoactive bowel sounds, no guarding, no rebound, no hepatosplenomegaly, no masses. EXTREMITIES: 2+ pulses, warm, well-perfused, no edema. NEUROLOGICAL: Intubated and sedated PSYCH: Intubated and sedated SKIN: Warm, dry, normal turgor, no rashes or lesions noted Laboratory Results - last 24 hr 07/05/17 07/05/17 07/05/17 21:00 21:10 21:10 WBC 23.7 H RBC 3.81 L Hgb 10.3 L Hct 32.5 L MCV 85.4 MCH 27.2 MCHC 31.8 L RDW 16.7 H Plt Count 267 MPV 8.2 Neutrophils % Lymphocytes % Monocytes % Eosinophils % Basophils % Manual Slide Review No Result Required. PT with INR INR Anticoagulation Therapy Y Puncture Site Arterial line ABG pH 7.23 L* ABG pCO2 at Pt Temp 39.3 ABG pO2 at Pt Temp 88.9 D ABG HCO3 15.9 L ABG O2 Sat (Measured) 95.6 ABG O2 Content 14.9 L ABG Base Excess -10.6 L* Sorin Test Not applicable O2 Delivery Device Mechanical vent Oxygen Flow Rate 100% Vent Mode A/c Vent Rate 20 Mechanical Rate Yes PEEP 8.0 Pressure Support Vent 500 Sodium 143 Potassium 3.3 L D Chloride 116 H Carbon Dioxide 14 L D Anion Gap 13 BUN 36 H Creatinine 2.7 H Creat Clearance w eGFR Random Glucose 478 H* D Lactic Acid Calcium 5.4 L* D Phosphorus 3.7 Magnesium 1.4 L D Total Bilirubin AST ALT Alkaline Phosphatase Creatine Kinase Creatine Kinase Index CK-MB (CK-2) Troponin I Total Protein Albumin Tobramycin Trough 07/05/17 07/05/17 07/06/17 21:10 21:10 05:00 WBC RBC Hgb Hct MCV MCH MCHC RDW Plt Count MPV Neutrophils % Lymphocytes % Monocytes % Eosinophils % Basophils % Manual Slide Review PT with INR 13.30 H INR 1.18 H Anticoagulation Therapy Puncture Site ABG pH ABG pCO2 at Pt Temp ABG pO2 at Pt Temp ABG HCO3 ABG O2 Sat (Measured) ABG O2 Content ABG Base Excess Sorin Test O2 Delivery Device Oxygen Flow Rate Vent Mode Vent Rate Mechanical Rate PEEP Pressure Support Vent Sodium Potassium Chloride Carbon Dioxide Anion Gap BUN Creatinine Creat Clearance w eGFR Random Glucose Lactic Acid 1.8 Calcium Phosphorus Magnesium Total Bilirubin AST ALT Alkaline Phosphatase Creatine Kinase Creatine Kinase Index CK-MB (CK-2) Troponin I Total Protein Albumin Tobramycin Trough 3.1 H* 07/06/17 07/06/17 07/06/17 05:00 05:00 05:00 WBC 25.6 H RBC 3.91 L Hgb 10.7 L Hct 33.1 L MCV 84.7 MCH 27.4 MCHC 32.4 RDW 17.1 H Plt Count 282 MPV 8.3 Neutrophils % Lymphocytes % Monocytes % Eosinophils % Basophils % Manual Slide Review No Result Required. PT with INR 13.30 H INR 1.18 H Anticoagulation Therapy Puncture Site ABG pH ABG pCO2 at Pt Temp ABG pO2 at Pt Temp ABG HCO3 ABG O2 Sat (Measured) ABG O2 Content ABG Base Excess Sorin Test O2 Delivery Device Oxygen Flow Rate Vent Mode Vent Rate Mechanical Rate PEEP Pressure Support Vent Sodium 136 Potassium 3.9 Chloride 104 D Carbon Dioxide 18 L D Anion Gap 14 BUN 50 H D Creatinine 3.7 H D Creat Clearance w eGFR 17.02 Random Glucose 554 H* Lactic Acid Calcium 7.5 L D Phosphorus 4.3 Magnesium 1.9 D Total Bilirubin 0.3 D AST 18 ALT 26 D Alkaline Phosphatase 94 Creatine Kinase Creatine Kinase Index CK-MB (CK-2) Troponin I Total Protein 6.6 Albumin 2.5 L Tobramycin Trough 07/06/17 07/06/17 07/06/17 05:00 07:15 10:55 WBC 26.1 H RBC 3.97 L Hgb 10.7 L Hct 33.7 L MCV 84.8 MCH 26.9 MCHC 31.8 L RDW 17.0 H Plt Count 278 MPV 8.1 Neutrophils % 89.6 H D Lymphocytes % 5.6 L D Monocytes % 4.5 Eosinophils % 0.0 D Basophils % 0.3 Manual Slide Review PT with INR INR Anticoagulation Therapy Puncture Site Arterial line ABG pH 7.32 L ABG pCO2 at Pt Temp 31.9 L ABG pO2 at Pt Temp 159.0 H* ABG HCO3 16.1 L ABG O2 Sat (Measured) 97.2 ABG O2 Content 14.8 L ABG Base Excess -8.5 L Sorin Test Not applicable O2 Delivery Device Mech vent Oxygen Flow Rate 100 Vent Mode A/c Vent Rate 28 Mechanical Rate Yes PEEP 8.0 Pressure Support Vent 500 Sodium Potassium Chloride Carbon Dioxide Anion Gap BUN Creatinine Creat Clearance w eGFR Random Glucose Lactic Acid Calcium Phosphorus Magnesium Total Bilirubin AST ALT Alkaline Phosphatase Creatine Kinase 232 Creatine Kinase Index 1.2 CK-MB (CK-2) 2.937 Troponin I 0.53 H D Total Protein Albumin Tobramycin Trough Active Medications Generic Name Dose Route Start Last Admin Trade Name Freq PRN Reason Stop Dose Admin Albuterol Sulfate 1 amp 07/05/17 06:15 Ventolin 0.083% Nebulizer Soln - NEB Q4H PRN SHORT OF BREATH/WHEEZING Clonazepam 1 mg 07/06/17 10:19 Klonopin - PO BID PRN Twitching Propofol 1,000,000 mcg in 100 mls @ 2.858 mls/hr 07/05/17 02:15 07/06/17 09: 21 Diprivan - IVPB 38.6 mcg/kg/min TITR PAULINE 22.061 mls/hr Protocol Titration 5 MCG/KG/MIN Fentanyl 500 mcg/ Dextrose 100 mls @ 20 mls/hr 07/05/17 06:15 07/06/17 07:04 IVPB 20 mls/hr TITR PAULINE Administration 100 MCG/HR Piperacillin Sod/Tazobactam 50 mls @ 100 mls/hr 07/05/17 18:00 07/06/17 10:35 Sod 2.25 gm/ Dextrose IVPB 100 mls/hr Q8H-IV PAULINE Administration Insulin Human Regular 100 100 mls @ 9.53 mls/hr 07/06/17 14:45 07/06/17 14:53 units/ Sodium Chloride IVPB 0.1 units/kg/hr TITR PAULINE 9.53 mls/hr Protocol Administration 0.1 UNITS/KG/HR ASSESSMENT/PLAN: Pt is a 56 M w/ PMH HTN, HL, DM, CKD, and HIV on HAART who presented to ED with cardiopulmonary arrest. Pt is now intubated and sedated. Prior to arriving at the ED, pt had been complaining of wheezing and SOB. On arriving in ED, pt was in arrest and was coded for 5 min. #Cardiopulmonary arrest -pt was coded in ED -intubated and sedated. Weaning as tolerated -Propofol -Fentanyl -Cards consulted -Echo -Pt was placed on hypothermia protocol. Passively rewarming today #Anoxic brain injury -Neuro on board -Pt was down and coded for several minutes -now exhibiting myoclonic jerks -klonopin per neuro #HIV positive -pt sees Dr. Vital as outpt -has been resistant to several medications -HIV meds on hold for now #Leukocytosis -WBC 26 -possibly reactive -cannot r/o infection at this time -Pt on Vanc/Zosyn per ID #FLORECITA on CKD -Nephro on board -FLORECITA likely worsened by arrest #DM -ISS #FEN -on NS -Pseudohypocalcemia -Intubated sedated. #PPx -no heparin in hypothermia protocol #Dispo -admitted to ICU Mukesh Niño MD PGY-1, ICU Visit type - Emergency Visit Emergency Visit: No - New Patient This patient is new to me today: Yes Date on this admission: 07/06/17 - Critical Care Critical Care patient: Yes Total Critical Care Time (in minutes): 30 Critical Care Statement: The care of this patient involved high complexity decision making to prevent further life threatening deterioration of the patient 's condition and/or to evaluate & treat vital organ system(s) failure or risk of failure.
--- NOTE | 2017-07-06 16:15 | PN ---
Teaching Attending Note Name of Resident: Susan Beck (Nephrology) ATTENDING PHYSICIAN STATEMENT I saw and evaluated the patient. I reviewed the resident's note and discussed the case with the resident. I agree with the resident's findings and plan as documented. Nephrology Consult Pt is a 56 year old male with pmhx of HIV, HTN, CKD and CHF who was on his way to the hospital for shortness of breath and wheezing when he had a cardiac arrest. He was found in [facility] and was resuscitated. He is now in the ICU and mechanically ventilated. He was found to have worsening of his renal function and I was called to evaluate him. He was also found to be hypertensive. Pt is lethargic and unable to give history. Pleas see resident note as well. pmhx ckd hiv chf htn ros unable to obtain fam hx non contrib soc hx unclear at this time Current Medications Generic Name Dose Route Start Last Admin Trade Name Freq PRN Reason Stop Dose Admin Albuterol Sulfate 1 amp 07/05/17 06:15 Ventolin 0.083% Nebulizer Soln - NEB Q4H PRN SHORT OF BREATH/WHEEZING Clonazepam 1 mg 07/06/17 10:19 Klonopin - PO BID PRN Twitching Propofol 1,000,000 mcg in 100 mls @ 2.858 mls/hr 07/05/17 02:15 07/06/17 09: 21 Diprivan - IVPB 38.6 mcg/kg/min TITR PAULINE 22.061 mls/hr Protocol Titration 5 MCG/KG/MIN Fentanyl 500 mcg/ Dextrose 100 mls @ 20 mls/hr 07/05/17 06:15 07/06/17 07:04 IVPB 20 mls/hr TITR PAULINE Administration 100 MCG/HR Piperacillin Sod/Tazobactam 50 mls @ 100 mls/hr 07/05/17 18:00 07/06/17 10:35 Sod 2.25 gm/ Dextrose IVPB 100 mls/hr Q8H-IV PAULINE Administration Insulin Human Regular 100 100 mls @ 9.53 mls/hr 07/06/17 14:45 07/06/17 14:53 units/ Sodium Chloride IVPB 0.1 units/kg/hr TITR PAULINE 9.53 mls/hr Protocol Administration 0.1 UNITS/KG/HR Last Vital Signs Temp Pulse Resp BP Pulse Ox 98.1 F 94 H 28 H 114/67 100 07/06/17 13:58 07/06/17 13:58 07/06/17 14:22 07/06/17 13:58 07/06/17 10:16 Laboratory Tests 12/09/16 06/03/17 06/04/17 10:05 14:45 06:34 WBC Hgb ABG pH Sodium Potassium Creatinine 2.4 H 2.2 H 2.0 H Urine Protein Urine Blood 07/05/17 07/05/17 07/05/17 00:45 02:10 05:00 WBC Hgb ABG pH Sodium Potassium Creatinine 2.4 H 2.8 H Urine Protein 3+ H Urine Blood 1+ H 07/05/17 07/05/17 07/06/17 21:00 21:10 05:00 WBC Hgb ABG pH 7.23 L* Sodium 136 Potassium 3.9 Creatinine 2.7 H 3.7 H D Urine Protein Urine Blood 07/06/17 07/06/17 05:00 07:15 WBC 26.1 H Hgb 10.7 L ABG pH 7.32 L Sodium Potassium Creatinine Urine Protein Urine Blood cardio s1s2 pulm bilateral vent sounds GI soft sky ext neg edema neuro lethargic Impression 1. FLORECITA 2. CKD 3. cardiac arrest 4. CHF 5. HIV Plan - renal function worse after cardiac arrest - pt could have atn from hypotension during time of arrest - pt has hx of CHF and there is decreased output on echo - can use lasix as needed for congestion - follow up neuro - repeat labs in am - check urine lytes and cr - check renal ultrasound - will follow Dr Campuzano
[2017-07-06] MEDS ORDERED: INSULIN SLIDING SCALE (NOVOLOG) 1 VIAL SQ SCH (16:30)
[2017-07-06] MEDS ORDERED: INSULIN REGULAR HUMAN 100 UNITS/ML *VIAL ONE (18:19)
--- NOTE | 2017-07-06 22:05 | PN ---
Progress Note, Physician History of Present Illness: No new changes - Current Medication List Current Medications: Active Medications Albuterol Sulfate (Ventolin 0.083% Nebulizer Soln -) 1 amp NEB Q4H PRN PRN Reason: SHORT OF BREATH/WHEEZING Clonazepam (Klonopin -) 1 mg PO BID PRN PRN Reason: Twitching Propofol (Diprivan -) 1,000,000 mcg in 100 mls @ 2.858 mls/hr IVPB TITR PAULINE; 5 MCG/KG/MIN PRN Reason: Protocol Last Titration: 07/06/17 09:21 Dose: 38.6 mcg/kg/min, 22.061 mls/hr Fentanyl 500 mcg/ Dextrose 100 mls @ 20 mls/hr IVPB TITR PAULINE PRN Reason: 100 MCG/HR Last Admin: 07/06/17 07:04 Dose: 20 mls/hr Piperacillin Sod/Tazobactam (Sod 2.25 gm/ Dextrose) 50 mls @ 100 mls/hr IVPB Q8H-IV PAULINE Last Admin: 07/06/17 10:35 Dose: 100 mls/hr Insulin Human Regular 100 (units/ Sodium Chloride) 100 mls @ 9.53 mls/hr IVPB TITR PAULINE; 0.1 UNITS/KG/HR PRN Reason: Protocol Last Admin: 07/06/17 14:53 Dose: 0.1 units/kg/hr, 9.53 mls/hr - Objective Vital Signs: Vital Signs Temperature 99.8 F H 07/06/17 16:00 Pulse Rate 125 H 07/06/17 20:00 Respiratory Rate 28 H 07/06/17 21:10 Blood Pressure 142/74 07/06/17 20:00 O2 Sat by Pulse Oximetry (%) 100 07/06/17 20:31 HENT: Yes: Other ((+) ETT) Neck: Yes: WNL, Supple Cardiovascular: Yes: WNL, Regular Rate and Rhythm Respiratory: Yes: Diminished Gastrointestinal: Yes: WNL, Normal Bowel Sounds, Soft Labs: CBC, BMP 07/06/17 05:00 07/06/17 05:00 INR, PTT INR 1.18 (0.82-1.09) H 07/06/17 05:00 Problem List - Problems (1) Respiratory failure Assessment/Plan: Cont broad spectrum antibxs Follow cultures Code(s): J96.90 - RESPIRATORY FAILURE, UNSP, UNSP W HYPOXIA OR HYPERCAPNIA (2) Cardiopulmonary arrest with successful resuscitation Assessment/Plan: Pt remains intubated Serial cpk/troponin As per cardio Code(s): I46.9 - CARDIAC ARREST, CAUSE UNSPECIFIED (3) Acute on chronic diastolic CHF (congestive heart failure) Assessment/Plan: Pt given IV lasix BNP elevated As per cardio Code(s): I50.33 - ACUTE ON CHRONIC DIASTOLIC (CONGESTIVE) HEART FAILURE (4) Uncontrolled diabetes mellitus Code(s): E11.65 - TYPE 2 DIABETES MELLITUS WITH HYPERGLYCEMIA
[2017-07-06 22:24] LABS: TROPONIN I 0.91 ng/ml (0.00-0.05)
[2017-07-07] MEDS ORDERED: fentaNYL CITRATE 250 MCG/5 ML VIAL ONE ×5 (01:58→23:07)
[2017-07-07] MEDS ORDERED: PT OWN MED DRAWER 7, Y5N ONE ×2 (02:16→21:26)
[2017-07-07] MEDS: PIPERACILLIN/TAZOB 2.25 GM 2.25 GM in DEXTROSE 5%-WATER - 50 ML IVPB SCH ×4 (02:22→19:34)
[2017-07-07] MEDS: PROPOFOL 1,000,000 MCG/100 ML VIAL IVPB SCH ×2 (02:23→21:32)
[2017-07-07 06:25] LABS: MCH 27.9 pg (25.7-33.7); MCHC 33.6 g/dl (32.0-35.9); MEAN PLT VOLUME 8.1 fl (7.5-11.1); PLATELET COUNT 265 K/MM3 (134-434); RDW 16.8 % (11.9-15.9)
[2017-07-07 06:48] LABS: ALBUMIN 2.2 g/dl (3.4-5.0); ALK PHOS 75 U/L (45-117); ANION GAP 15 (8-16); BILIRUBIN,TOTAL 0.2 mg/dL (0.2-1.0); CALCIUM 7.1 mg/dL (8.5-10.1); CO2 17 mmol/L (21-32); GLUCOSE,RANDOM 135 mg/dL (74-106); SGOT/AST 57 U/L (15-37); SGPT/ALT 21 U/L (12-78); TOT PROT 6.3 g/dl (6.4-8.2)
[2017-07-07 07:35] LABS: ARTERIAL BLD GAS O2 SATURATION 98.3 % (90-98.9); ARTERIAL BLOOD GAS BASE EXCESS -10.2 meq/l (-2-2); ARTERIAL BLOOD GAS HCO3 14.2 meq/L (22-26); ARTERIAL BLOOD GAS pH 7.33 (7.35-7.45)
[2017-07-07 07:39] LABS: ART PUNCT SITE ARTERIAL LINE; LPM/O2% 80; PT. ON O2? YES; TYPE OF O2 VENT
[2017-07-07 07:40] LABS: MECH. VENT. YES; VENT RATE 28; VT/PRESS 500
[2017-07-07] MEDS: FENTANYL INJECTION 500 MCG in DEXTROSE 5%-WATER - 90 ML IVPB SCH ×2 (08:34→20:00)
[2017-07-07 08:48] LABS: MAGNESIUM 1.6 mg/dL (1.8-2.4); PHOSPHOROUS 5.3 mg/dL (2.5-4.9)
[2017-07-07 08:50] LABS: CPK 169 IU/L (39-308)
[2017-07-07 09:21] LABS: TROPONIN I 1.33 ng/ml (0.00-0.05)
--- NOTE | 2017-07-07 09:28 | PN ---
Progress Note (short form) - Note Progress Note: Neurology History of Present Illness: Mr. Welch is a 56 y/o man w/ HTN, HL, DM, CKD, HIV on HAART, EF 49.5%, BIBA for SOB. Reportedly had been experiencing worsening SOB & SAMUELS w/ assoc wheezing for several days prior to admission. While in route developed further respiratory distress and in ER had agonal breathing and unresponsive. No pulse noted on stretcher transferand chest compressions were initiated. The Pt was resuscitated per ACLS protocol for approximately 5 minutes according to note, receiving epi x 2, bicarb x 2. Pt was intubated and placed on ventilator and given nebulizers and steroids. Pt admitted to the ICU s/p Cardiac Arrest and respiratory failure. The patient has been on propofol but having myoclonic twitches especially in right foot. Given his history, this is likely myoclonic jerks 2/2 to anoxic brain injury. Klonipin was started, twitching improved and not visible at this time. He did not demonstrate gag, not responding to pain, there is minimal pupil contriction from 2mm to 1mm and therefore does not meet criteria for brain . However, only minimal brainstem activity and therefore significant concern regarding patient's ability to recover and prognosis. Spoke to ICU staff today, troponins elevated. Plan is for EEG which was ordered but not yet completed. Nurse called down to department to facilitate completion. No sigificant improvement overnight. Nonresponsive, Not overbreathing vent. Active Medications Acetaminophen (Ofirmev Injection -) 1,000 mg IVPB Q6H PRN PRN Reason: FEVER OR PAIN Albuterol Sulfate (Ventolin 0.083% Nebulizer Soln -) 1 amp NEB Q4H PRN PRN Reason: SHORT OF BREATH/WHEEZING Clonazepam (Klonopin -) 1 mg PO BID PRN PRN Reason: Twitching Propofol (Diprivan -) 1,000,000 mcg in 100 mls @ 2.858 mls/hr IVPB TITR PAULINE; 5 MCG/KG/MIN PRN Reason: Protocol Last Admin: 07/07/17 02:23 Dose: 38.6 mcg/kg/min, 22.061 mls/hr Fentanyl 500 mcg/ Dextrose 100 mls @ 20 mls/hr IVPB TITR PAULINE PRN Reason: 100 MCG/HR Last Admin: 07/07/17 08:34 Dose: 20 mls/hr Piperacillin Sod/Tazobactam (Sod 2.25 gm/ Dextrose) 50 mls @ 100 mls/hr IVPB Q8H-IV PAULINE Last Admin: 07/07/17 02:22 Dose: 100 mls/hr Insulin Human Regular 100 (units/ Sodium Chloride) 100 mls @ 9.53 mls/hr IVPB TITR PAULINE; 0.1 UNITS/KG/HR PRN Reason: Protocol Last Titration: 07/07/17 04:00 Dose: 0 units/kg/hr, 0 mls/hr Physical Exam Vital Signs Period Temp Pulse Resp BP Sys/Del Castillo Pulse Ox Last 24 Hr 98.1 F-102.9 F 80-133 14-32 114-158/58-83 100-100 Constitutional: Yes: Well Nourished, No Distress, Calm Eyes: Yes: PERRL, Other (R Upward Lat Gaze.) HENT: Yes: WNL, Atraumatic, Normocephalic Neck: Yes: WNL, Supple, Trachea Midline Cardiovascular: Yes: WNL, Regular Rate and Rhythm Respiratory: Yes: Diminished, Mechanically Ventilated, Wheezes Gastrointestinal: Yes: Abdomen, Obese, Distention, Hyperactive Bowel Sounds ...Rectal Exam: Yes: Deferred Renal/: Yes: Rocha Present Breast(s): Yes: WNL Extremities: Yes: Other (Clubbed Fingers.) Edema: Yes Edema: LLE: 1+, RLE: 1+ Peripheral Pulses WNL: Yes Integumentary: Yes: WNL Neurological: No facial droop, not responding to pain, not gagging on suction, R pupil 2mm --> 1mm, no spontaneous movement, R foot myoclonic twitching noted CBCD WBC 30.0 K/mm3 (4.0-10.0) H 07/07/17 05:00 RBC 3.59 M/mm3 (4.00-5.60) L 07/07/17 05:00 Hgb 10.0 GM/dL (11.7-16.9) L 07/07/17 05:00 Hct 29.8 % (35.4-49) L 07/07/17 05:00 MCV 83.0 fl (80-96) 07/07/17 05:00 MCHC 33.6 g/dl (32.0-35.9) 07/07/17 05:00 RDW 16.8 % (11.9-15.9) H 07/07/17 05:00 Plt Count 265 K/MM3 (134-434) 07/07/17 05:00 MPV 8.1 fl (7.5-11.1) 07/07/17 05:00 CMP Sodium 139 mmol/L (136-145) 07/07/17 05:00 Potassium 3.6 mmol/L (3.5-5.1) 07/07/17 05:00 Chloride 107 mmol/L (98-107) 07/07/17 05:00 Carbon Dioxide 17 mmol/L (21-32) L 07/07/17 05:00 Anion Gap 15 (8-16) 07/07/17 05:00 BUN 65 mg/dL (7-18) H D 07/07/17 05:00 Creatinine 5.0 mg/dL (0.7-1.3) H D 07/07/17 05:00 Creat Clearance w eGFR 12.02 (>60) 07/07/17 05:00 Calcium 7.1 mg/dL (8.5-10.1) L 07/07/17 05:00 Total Bilirubin 0.2 mg/dL (0.2-1.0) D 07/07/17 05:00 AST 57 U/L (15-37) H D 07/07/17 05:00 ALT 21 U/L (12-78) 07/07/17 05:00 Alkaline Phosphatase 75 U/L (45-117) D 07/07/17 05:00 Total Protein 6.3 g/dl (6.4-8.2) L 07/07/17 05:00 Albumin 2.2 g/dl (3.4-5.0) L 07/07/17 05:00 Plan: 56 y/o man w/ HTN, HL, DM, CKD, HIV on HAART, EF 49.5%, BIBA for SOB. Reportedly had been experiencing worsening SOB & SAMUELS w/ assoc wheezing for several days prior to admission. While in route developed further respiratory distress and in ER had agonal breathing and unresponsive. No pulse noted on stretcher transferand chest compressions were initiated. The Pt was resuscitated per ACLS protocol for approximately 5 minutes according to note, receiving epi x 2, bicarb x 2. Pt was intubated and placed on ventilator and given nebulizers and steroids. Pt admitted to the ICU s/p Cardiac Arrest and respiratory failure. The patient has been on propofol but having myoclonic twitches especially in right foot which have improved with Klonipin Minimal pupil contriction from 2mm to 1mm and therefore does not meet criteria for brain . However, only minimal brainstem activity and therefore significant concern regarding patient's ability to recover and prognosis. Given his history, this is likely myoclonic jerks 2/2 to anoxic brain injury and would require AEDS klonipin 1mg twice daily added Continue ICU care Continue Mechanical ventilation, wean as able Propofol on board, wean as able Monitor mental status for any improvement Cardiology following close Monitor blood pressure, support as required IV Abx for possible PNA as needed CT head when able EEG ordered, awaiting completion MRI brain when stable Critical Care Time 40 mins
[2017-07-07 09:31] LABS: MAGNESIUM 1.6 mg/dL (1.8-2.4); PHOSPHOROUS 5.3 mg/dL (2.5-4.9)
[2017-07-07] MEDS: ACETAMINOPHEN 1000 MG/100 ML VIAL (NON FORMULARY) IVPB PRN ×2 (10:02→21:45)
--- NOTE | 2017-07-07 10:21 | EKG ---
Test Reason : Blood Pressure : / mmHG Vent. Rate : 119 BPM Atrial Rate : 119 BPM P-R Int : 128 ms QRS Dur : 084 ms QT Int : 434 ms P-R-T Axes : 088 080 140 degrees QTc Int : 610 ms SINUS TACHYCARDIA WITH OCCASIONAL PREMATURE VENTRICULAR COMPLEXES POSSIBLE LEFT ATRIAL ENLARGEMENT PROLONGED QT ABNORMAL ECG WHEN COMPARED WITH ECG OF 03-JUN-2017 13:55, PREMATURE VENTRICULAR COMPLEXES ARE NOW PRESENT VENT. RATE HAS INCREASED BY 50 BPM T WAVE INVERSION NOW EVIDENT IN ANTERIOR LEADS Confirmed by CINDY PURDY MD ([id number]) on 07/07/2017 10:21:08 AM Referred By: Vivek GILMAN Confirmed By:CINDY PURDY MD
[2017-07-07] MEDS ORDERED: HEMOQUE TEST 1 EACH EACH ONE ×2 (11:14→18:03)
[2017-07-07 11:41] LABS: PLATELET COMMENTS NO CLUMPING NOTED; PLATELET ESTIMATE ADEQUATE
--- NOTE | 2017-07-07 12:00 | PN ---
Progress Note (short form) - Note Progress Note: CC: SOB/cardiac arrest. S/p lasix 40 mg IV x 1 yesterday --> Cr worsened. HR trending up today. + fever. + EKG changes in setting of tachycardia. Current Medications Acetaminophen (Ofirmev Injection -) 1,000 mg IVPB Q6H PRN PRN Reason: FEVER OR PAIN Last Admin: 07/07/17 10:02 Dose: 1,000 mg Albuterol Sulfate (Ventolin 0.083% Nebulizer Soln -) 1 amp NEB Q4H PRN PRN Reason: SHORT OF BREATH/WHEEZING Clonazepam (Klonopin -) 1 mg PO BID PRN PRN Reason: Twitching Propofol (Diprivan -) 1,000,000 mcg in 100 mls @ 2.858 mls/hr IVPB TITR PAULINE; 5 MCG/KG/MIN PRN Reason: Protocol Last Admin: 07/07/17 02:23 Dose: 38.6 mcg/kg/min, 22.061 mls/hr Fentanyl 500 mcg/ Dextrose 100 mls @ 20 mls/hr IVPB TITR PAULINE PRN Reason: 100 MCG/HR Last Admin: 07/07/17 08:34 Dose: 20 mls/hr Piperacillin Sod/Tazobactam (Sod 2.25 gm/ Dextrose) 50 mls @ 100 mls/hr IVPB Q8H-IV PAULINE Last Admin: 07/07/17 10:04 Dose: 100 mls/hr Insulin Human Regular 100 (units/ Sodium Chloride) 100 mls @ 9.53 mls/hr IVPB TITR PAULINE; 0.1 UNITS/KG/HR PRN Reason: Protocol Last Titration: 07/07/17 04:00 Dose: 0 units/kg/hr, 0 mls/hr Vital Signs - 24 hr 07/06/17 07/06/17 07/06/17 13:58 14:22 16:00 Temperature 98.1 F 99.8 F H Pulse Rate 94 H 108 H Respiratory 28 H 28 H 28 H Rate Blood Pressure 114/67 145/70 O2 Sat by Pulse Oximetry (%) 07/06/17 07/06/17 07/06/17 16:40 18:00 18:36 Temperature Pulse Rate 119 H 117 H Respiratory 28 H 28 H 28 H Rate Blood Pressure 156/70 156/70 O2 Sat by Pulse Oximetry (%) 07/06/17 07/06/17 07/06/17 19:02 20:00 20:31 Temperature Pulse Rate 125 H Respiratory 28 H 28 H Rate Blood Pressure 142/74 O2 Sat by Pulse 100 Oximetry (%) 07/06/17 07/06/17 07/07/17 21:10 23:36 00:00 Temperature Pulse Rate 133 H Respiratory 28 H 28 H 28 H Rate Blood Pressure 157/75 O2 Sat by Pulse Oximetry (%) 07/07/17 07/07/17 07/07/17 01:30 02:00 03:20 Temperature 102.9 F H Pulse Rate 133 H Respiratory 28 H 32 H 28 H Rate Blood Pressure 125/58 O2 Sat by Pulse Oximetry (%) 07/07/17 07/07/17 07/07/17 04:00 06:00 06:30 Temperature Pulse Rate 80 125 H Respiratory 14 28 H 28 H Rate Blood Pressure 158/83 125/65 O2 Sat by Pulse Oximetry (%) 07/07/17 07/07/17 07/07/17 09:00 09:30 10:25 Temperature Pulse Rate 112 H Respiratory 28 H 28 H Rate Blood Pressure O2 Sat by Pulse 100 100 Oximetry (%) Intake & Output 07/05/17 07/06/17 07/07/17 07/08/17 07:59 07:59 07:59 07:59 Intake Total 24 1052.8 1030 Output Total 200 3600 1050 Balance -176 -2547.2 -20 Weight 218 lb 4.122 oz 210 lb 5 oz 211 lb 6.773 oz Constitutional: Yes: Well Nourished, No Distress, intubated, sedated. Eyes: No: Sclera Icterus HENT: No: Nasal Congestion Neck: No: Decreased ROM Respiratory: Yes: mechanical breath sounds (anteriorly (pt intubated)). No: Accessory Muscle Use, Rales, Wheezes Gastrointestinal: Yes: Normal Bowel Sounds. No: Distention, Hepatomegaly, Palpable Mass, Tenderness Cardiovascular: Yes: tachcyardic, Regular Rate and Rhythm JVD: No Carotid Bruit: No PMI: Non-Displaced Heart Sounds: Yes: S1, S2. No: Gallop Murmur: No: Systolic Murmur, Diastolic Murmur Musculoskeletal: Yes: Other (No kyphosis) Extremities: No: Cool (feet), Cyanosis Edema: No Peripheral Pulses: 2+ Left Carotid, 2+ Right Carotid, 2+ Left Doralis Pedis, 2+ Right Dorsalis Pedis Integumentary: No: Jaundice Neurological: No: Alert, Oriented Psychiatric: No: Agitated - Other Data Labs, Other Data: CBC, BMP 07/07/17 05:00 07/07/17 05:00 Laboratory Tests 07/06/17 07/06/17 07/06/17 05:00 05:00 21:00 ABG pH ABG pCO2 at Pt Temp ABG pO2 at Pt Temp O2 Delivery Device Oxygen Flow Rate Vent Rate PEEP Pressure Support Vent Magnesium Total Bilirubin AST 18 ALT Alkaline Phosphatase Creatine Kinase Index 0.9 CK-MB (CK-2) 1.987 Troponin I 0.91 H* D Albumin Tobramycin Trough 3.1 H* 07/07/17 07/07/17 07/07/17 05:00 05:00 07:20 ABG pH 7.33 L ABG pCO2 at Pt Temp 27.7 L ABG pO2 at Pt Temp 139.0 H D O2 Delivery Device Vent Oxygen Flow Rate 80 Vent Rate 28 PEEP 8.0 Pressure Support Vent 500 Magnesium 1.6 L 1.6 L Total Bilirubin 0.2 D AST 57 H D ALT 21 Alkaline Phosphatase 75 D Creatine Kinase Index 0.8 CK-MB (CK-2) 1.414 Troponin I 1.33 H* D Albumin 2.2 L Tobramycin Trough tele: NSR, sinus tachycardia EKG 07/07: sinus tach with pvc's. new difufes TWI. worse in precordial leads. prolonged qtc. Assessment/Plan CXR 07/05 #1 (images reviewed): diffuse, severe airspace opacities, bilat effusions, vasculature not well seen 07/05 #2: no change 07/06: effusions have resolved, diffuse infiltrates improving ECG #1: sinus tach, normal axis, +/- long QT (mild); no pathol q waves; borderline ischemic appearing ST depressions inferior leads and V6 (no old but this was not reported on 12/24 office ecg) #2: NSR, STs resolving ECG 07/07: MPI 05/26: no ischemia, EF 33% (global echo 06/2017: nl lv size. LV fn mod-sev reduced (global). nl rv size/fn. 1+ mac/mr/tr. rvsp 30-40. + pleural effusion. Echo 05/26 (): mod LVE, mild global LV hypo; nl RV; mild LAE; mild MR Echo 12/24: nl LV and RV, nl valves 56 yo smoker with h/o mild lv dysfunction, htn, hl, ckd, hiv, dm p/w progressive sob and subsequent PEA arrest with EMS (s/p resuscitation). acute hypoxic resp failure, acute on chronic syst CHF: -CXR trend suggestive of acute chf, improved this am partially s/p diuresis. BNP 27K (no baseline) -resting echo 05/26 with mild LV dysfunction, ? worse (nuclear estimated EF 33%) , ? underlying CAD with balanced ischemia on nuclear--of note, ECG initially here with borderline ST changes for ischemia. ? diast chf component mixed in. -trop intermediate range x 2 but rising (0.07 to 0.3). ? demand. CK and MB remain wnl. Will cont' to trend trop to peak. -received lasix drip 07/05 and 40mg iv 07/06 --> sig bump in Cr today 07/07, no sig change in CXR 07/07. -repeat echo here with worsened systolic function. consider invasive ischemia eval (cath) prior to hosp discharge, or sooner depending on neurologic prognosis. EKG changes today in setting of tachycardia. discussed with residents, starting beta blockade. Treatment of underlying clinical condition ( fever, etc..) per pmd in order to manage heart rate. - will discuss lyte repletion with renal. Patient currently with prolonged qtc on ekg. (can reevaluate once electrolytes have normalized). limit qtc prolonging drugs when possible. - HR trending up, ? fever vs. hypovolemia. cardiac arrest (PEA): -sec to acute chf/hypoxia most likely -telem with stable rhythm (sinus) -cont monitoring, optimization of chf and acid-base status, as doing - neuro note reviewed: Pt was resuscitated per ACLS protocol for approximately 5 minutes according to note, receiving epi x 2, bicarb x 2. Per report, exam c/ w anoxic brain injury with only minimal brainstem activity at present - poor prognosis. Plan is for EEG. FLORECITA on CKD: -baseline creat here 2.8 in 05/26. initially 2.4 on presentation to ER -suspect hypoperfusion with lactic acidosis in setting of CHF decompensation as cause, ? cardiorenal syndrome --> 07/07 now with acute on chronic worsening s/p lasix. discussed with renal. Unclear if lasix is trigger for acute worsening or if ongoing injury post cardiac arrest. Will hold lasix for now and reevaluate. - renal following. acute met acidosis, elevated lactate: -sec to acute chf HTN: -varying normal to moderately elevated. starting bb as above. HIV/Hep C: -per ID team + tobacco - cessation counseling if patient's clinical condition improves. est time in review of data and formulating of mgmt plan = 40 min
[2017-07-07] MEDS ORDERED: MAGNESIUM SULF 50% (8.12 MEQ/2 ML-1 GM VIAL) IVPB ONE (12:28)
--- NOTE | 2017-07-07 13:00 | PN ---
Progress Note, Physician History of Present Illness: Unresponsive on ventilator Temp spike noted WBC remains elevated 30K Sputum MSSA - Current Medication List Current Medications: Active Medications Acetaminophen (Ofirmev Injection -) 1,000 mg IVPB Q6H PRN PRN Reason: FEVER OR PAIN Last Admin: 07/07/17 10:02 Dose: 1,000 mg Albuterol Sulfate (Ventolin 0.083% Nebulizer Soln -) 1 amp NEB Q4H PRN PRN Reason: SHORT OF BREATH/WHEEZING Clonazepam (Klonopin -) 1 mg PO BID PRN PRN Reason: Twitching Propofol (Diprivan -) 1,000,000 mcg in 100 mls @ 2.858 mls/hr IVPB TITR PAULINE; 5 MCG/KG/MIN PRN Reason: Protocol Last Admin: 07/07/17 02:23 Dose: 38.6 mcg/kg/min, 22.061 mls/hr Fentanyl 500 mcg/ Dextrose 100 mls @ 20 mls/hr IVPB TITR PAULINE PRN Reason: 100 MCG/HR Last Admin: 07/07/17 08:34 Dose: 20 mls/hr Piperacillin Sod/Tazobactam (Sod 2.25 gm/ Dextrose) 50 mls @ 100 mls/hr IVPB Q8H-IV PAULINE Last Admin: 07/07/17 10:04 Dose: 100 mls/hr Insulin Human Regular 100 (units/ Sodium Chloride) 100 mls @ 9.53 mls/hr IVPB TITR PAULINE; 0.1 UNITS/KG/HR PRN Reason: Protocol Last Titration: 07/07/17 04:00 Dose: 0 units/kg/hr, 0 mls/hr - Objective Vital Signs: Vital Signs Temperature 102.9 F H 07/07/17 02:00 Pulse Rate 112 H 07/07/17 10:25 Respiratory Rate 28 H 07/07/17 11:56 Blood Pressure 125/65 07/07/17 06:00 O2 Sat by Pulse Oximetry (%) 100 07/07/17 10:25 Constitutional: Yes: No Distress Eyes: Yes: Conjunctiva Clear Cardiovascular: Yes: Regular Rate and Rhythm, S1, S2 Respiratory: Yes: Mechanically Ventilated Gastrointestinal: Yes: Normal Bowel Sounds, Soft. No: Tenderness Edema: Yes Labs: CBC, BMP 07/07/17 05:00 07/07/17 05:00 INR, PTT INR 1.18 (0.82-1.09) H 07/06/17 05:00 Assessment/Plan S/P cardiopulmonary arrest Possible anoxic encephalopathy Pulmonary edema, possible aspiration pneumonia Renal failure Fever / Leukocytosis HIV + Continue empiric zosyn Hemodynamic/ ventilatory support ART on hold Discussed with daughter at bedside
[2017-07-07] MEDS ORDERED: PROPOFOL 1,000,000 MCG/100 ML VIAL ONE ×2 (13:31→20:00)
[2017-07-07] MEDS ORDERED: INSULIN SLIDING SCALE (NOVOLOG) 1 VIAL SQ SCH ×3 (14:00→18:00)
--- NOTE | 2017-07-07 14:16 | PN ---
Teaching Attending Note Name of Resident: Mukesh Niño ATTENDING PHYSICIAN STATEMENT I saw and evaluated the patient. I reviewed the resident's note and discussed the case with the resident. I agree with the resident's findings and plan as documented. SUBJECTIVE: Patient seen and examined in the ICU. Remains intubated and sedated on propofol. AC Mode of vent 80%. No pressors. No Myoclonus noted. Intake & Output 07/04/17 07/05/17 07/06/17 07/07/17 23:59 23:59 23:59 23:59 Intake Total 761.8 1345 Output Total 3000 1850 Balance -2238.2 -505 Weight 218 lb 4.122 oz 210 lb 5 oz 211 lb 6.773 oz Last Vital Signs Temp Pulse Resp BP Pulse Ox 102.9 F H 112 H 28 H 125/65 100 07/07/17 02:00 07/07/17 10:25 07/07/17 11:56 07/07/17 06:00 07/07/17 10:25 Active Medications Acetaminophen (Ofirmev Injection -) 1,000 mg IVPB Q6H PRN PRN Reason: FEVER OR PAIN Last Admin: 07/07/17 10:02 Dose: 1,000 mg Albuterol Sulfate (Ventolin 0.083% Nebulizer Soln -) 1 amp NEB Q4H PRN PRN Reason: SHORT OF BREATH/WHEEZING Clonazepam (Klonopin -) 1 mg PO BID PRN PRN Reason: Twitching Propofol (Diprivan -) 1,000,000 mcg in 100 mls @ 2.858 mls/hr IVPB TITR PAULINE; 5 MCG/KG/MIN PRN Reason: Protocol Last Admin: 07/07/17 02:23 Dose: 38.6 mcg/kg/min, 22.061 mls/hr Fentanyl 500 mcg/ Dextrose 100 mls @ 20 mls/hr IVPB TITR PAULINE PRN Reason: 100 MCG/HR Last Admin: 07/07/17 08:34 Dose: 20 mls/hr Piperacillin Sod/Tazobactam (Sod 2.25 gm/ Dextrose) 50 mls @ 100 mls/hr IVPB Q8H-IV PAULINE Last Admin: 07/07/17 10:04 Dose: 100 mls/hr Insulin Human Regular 100 (units/ Sodium Chloride) 100 mls @ 9.53 mls/hr IVPB TITR PAULINE; 0.1 UNITS/KG/HR PRN Reason: Protocol Last Titration: 07/07/17 04:00 Dose: 0 units/kg/hr, 0 mls/hr Insulin Aspart (Novolog Vial Sliding Scale -) 1 vial SQ Q4HPO PAULINE PRN Reason: Protocol Constitutional: Yes: Intubated, non-responsive Eyes: Yes: Pupils constricted: minimal response, Upward gaze HENT: Yes: WNL, Atraumatic, Normocephalic Neck: Yes: WNL, Supple, Trachea Midline Cardiovascular: Yes: Regular Rate and Rhythm Respiratory: Yes: Scattered bilateral rhonchi, Mechanically Ventilated Gastrointestinal: Yes: Abdomen, Obese, (+) Bowel Sounds ...Rectal Exam: Yes: Deferred Renal/: Yes: Rocha Present Breast(s): Yes: WNL Extremities: Yes: Cool Edema: Yes Edema: LLE: 1+, RLE: 1+ Peripheral Pulses WNL: Yes Integumentary: Yes: WNL Neurological: Yes: Nonresponsive ...Motor Strength: WNL Psychiatric: Yes: WNL Labs: Laboratory Results - last 24 hr 07/06/17 07/06/17 07/06/17 14:50 14:50 15:06 WBC RBC Hgb Hct MCV MCH MCHC RDW Plt Count MPV Neutrophils % Neutrophils % (Manual) Band Neutrophils % Lymphocytes % Lymphocytes % (Manual) Monocytes % (Manual) Eosinophils % (Manual) Basophils % (Manual) Platelet Estimate Platelet Comment Puncture Site ABG pH ABG pCO2 at Pt Temp ABG pO2 at Pt Temp ABG HCO3 ABG O2 Sat (Measured) ABG O2 Content ABG Base Excess Sorin Test O2 Delivery Device Oxygen Flow Rate Vent Mode Vent Rate Mechanical Rate PEEP Pressure Support Vent Sodium Potassium Chloride Carbon Dioxide Anion Gap BUN Creatinine Creat Clearance w eGFR POC Glucometer > 400 Random Glucose Calcium Phosphorus Magnesium Total Bilirubin AST ALT Alkaline Phosphatase Creatine Kinase Creatine Kinase Index CK-MB (CK-2) Troponin I Total Protein Albumin Ur Random Sodium 57 Ur Random Potassium 32.6 Ur Random Chloride 43 Ur Random Urea Nitrogn 380 07/06/17 07/06/17 07/06/17 17:46 20:07 21:00 WBC RBC Hgb Hct MCV MCH MCHC RDW Plt Count MPV Neutrophils % Neutrophils % (Manual) Band Neutrophils % Lymphocytes % Lymphocytes % (Manual) Monocytes % (Manual) Eosinophils % (Manual) Basophils % (Manual) Platelet Estimate Platelet Comment Puncture Site ABG pH ABG pCO2 at Pt Temp ABG pO2 at Pt Temp ABG HCO3 ABG O2 Sat (Measured) ABG O2 Content ABG Base Excess Sorin Test O2 Delivery Device Oxygen Flow Rate Vent Mode Vent Rate Mechanical Rate PEEP Pressure Support Vent Sodium Potassium Chloride Carbon Dioxide Anion Gap BUN Creatinine Creat Clearance w eGFR POC Glucometer 375.09267 173.37417 Random Glucose Calcium Phosphorus Magnesium Total Bilirubin AST ALT Alkaline Phosphatase Creatine Kinase 204 Creatine Kinase Index 0.9 CK-MB (CK-2) 1.987 Troponin I 0.91 H* D Total Protein Albumin Ur Random Sodium Ur Random Potassium Ur Random Chloride Ur Random Urea Nitrogn 07/07/17 07/07/17 07/07/17 05:00 05:00 05:00 WBC 30.0 H RBC 3.59 L Hgb 10.0 L Hct 29.8 L MCV 83.0 MCH 27.9 MCHC 33.6 RDW 16.8 H Plt Count 265 MPV 8.1 Neutrophils % No Result Required. Neutrophils % (Manual) 90.0 H D Band Neutrophils % 1.0 Lymphocytes % No Result Required. Lymphocytes % (Manual) 6.0 L D Monocytes % (Manual) 3 L Eosinophils % (Manual) 0.0 D Basophils % (Manual) 0.0 Platelet Estimate Adequate Platelet Comment No clumping noted Puncture Site ABG pH ABG pCO2 at Pt Temp ABG pO2 at Pt Temp ABG HCO3 ABG O2 Sat (Measured) ABG O2 Content ABG Base Excess Sorin Test O2 Delivery Device Oxygen Flow Rate Vent Mode Vent Rate Mechanical Rate PEEP Pressure Support Vent Sodium 139 Potassium 3.6 Chloride 107 Carbon Dioxide 17 L Anion Gap 15 BUN 65 H D Creatinine 5.0 H D Creat Clearance w eGFR 12.02 POC Glucometer Random Glucose 135 H D Calcium 7.1 L Phosphorus 5.3 H D 5.3 H Magnesium 1.6 L 1.6 L Total Bilirubin 0.2 D AST 57 H D ALT 21 Alkaline Phosphatase 75 D Creatine Kinase 169 Creatine Kinase Index 0.8 CK-MB (CK-2) 1.414 Troponin I 1.33 H* D Total Protein 6.3 L Albumin 2.2 L Ur Random Sodium Ur Random Potassium Ur Random Chloride Ur Random Urea Nitrogn 07/07/17 07/07/17 07:20 07:40 WBC RBC Hgb Hct MCV MCH MCHC RDW Plt Count MPV Neutrophils % Neutrophils % (Manual) Band Neutrophils % Lymphocytes % Lymphocytes % (Manual) Monocytes % (Manual) Eosinophils % (Manual) Basophils % (Manual) Platelet Estimate Platelet Comment Puncture Site Arterial line ABG pH 7.33 L ABG pCO2 at Pt Temp 27.7 L ABG pO2 at Pt Temp 139.0 H D ABG HCO3 14.2 L* ABG O2 Sat (Measured) 98.3 ABG O2 Content 13.6 L ABG Base Excess -10.2 L* Sorin Test Y O2 Delivery Device Vent Oxygen Flow Rate 80 Vent Mode A/c Vent Rate 28 Mechanical Rate Yes PEEP 8.0 Pressure Support Vent 500 Sodium Potassium Chloride Carbon Dioxide Anion Gap BUN Creatinine Creat Clearance w eGFR POC Glucometer Random Glucose Calcium Phosphorus Magnesium Total Bilirubin AST ALT Alkaline Phosphatase Creatine Kinase Cancelled Creatine Kinase Index CK-MB (CK-2) Troponin I Cancelled Total Protein Albumin Ur Random Sodium Ur Random Potassium Ur Random Chloride Ur Random Urea Nitrogn Problem List - Problems (1) CHF (congestive heart failure) Code(s): I50.9 - HEART FAILURE, UNSPECIFIED Qualifiers: Congestive heart failure type: unspecified congestive heart failure type Congestive heart failure chronicity: unspecified congestive heart failure chronicity Qualified Code(s): I50.9 - Heart failure, unspecified (2) Cardiopulmonary arrest with successful resuscitation Code(s): I46.9 - CARDIAC ARREST, CAUSE UNSPECIFIED (3) Pneumonia Code(s): J18.9 - PNEUMONIA, UNSPECIFIED ORGANISM (4) Respiratory failure Code(s): J96.90 - RESPIRATORY FAILURE, UNSP, UNSP W HYPOXIA OR HYPERCAPNIA Assessment/Plan ASSESS: This is a 56 YOM w/ HTN, HL, DM, CKD, & HIV/AIDS on HAART admitted now w / resp fail s/p cardiac arrest m/l 2/2 flash pulm edema +/- pna. PLAN: Monitor off Vecuronium drip Taper FiO2 as tolerated Sedation vacation to assess mental status BD TX ABX per ID Monitor off Lasix SCDs No contraindication for AC/ASA if needed Will need to review with the family, unfortunately overall outcome appears poor Dr Glez Critical care time spent in reviewing chart, evaluating patient and formulating plan 40 minutes.
[2017-07-07] MEDS: INSULIN SLIDING SCALE (NOVOLOG) 1 VIAL SQ SCH ×3 (14:22→22:02)
[2017-07-07] MEDS ORDERED: INSULIN (NOVOLOG) ASPART 100 UNITS/ML 10ML VIAL ONE (14:24)
--- NOTE | 2017-07-07 14:28 | PN ---
Physical Exam: SUBJECTIVE: Patient seen and examined at bedside. Pt intubated and sedated. afebrile. BP stable. OBJECTIVE: Vital Signs Period Temp Pulse Resp BP Sys/[place]illo Pulse Ox Last 24 Hr 99.8 F-102.9 F 80-133 14-32 125-158/58-83 100-100 GENERAL: Intubated and sedated. HEAD: Normal with no signs of trauma. EYES: sclera anicteric, conjunctiva clear. No ptosis. ENT: oropharynx clear without exudates, moist mucous membranes. NECK: Trachea midline, full range of motion, supple. LUNGS: Breath sounds equal, clear to auscultation bilaterally, no wheezes, no crackles, no accessory muscle use. HEART: Regular rate and rhythm, S1, S2 without murmur, rub or gallop. ABDOMEN: Soft, nontender, nondistended, normoactive bowel sounds, no guarding, no rebound, no hepatosplenomegaly, no masses. EXTREMITIES: 2+ pulses, warm, well-perfused, no edema. NEUROLOGICAL: Intubated and sedated PSYCH: Intubated and sedated SKIN: Warm, dry, normal turgor, no rashes or lesions noted Laboratory Results - last 24 hr 07/06/17 07/06/17 07/06/17 14:50 14:50 15:06 WBC RBC Hgb Hct MCV MCH MCHC RDW Plt Count MPV Neutrophils % Neutrophils % (Manual) Band Neutrophils % Lymphocytes % Lymphocytes % (Manual) Monocytes % (Manual) Eosinophils % (Manual) Basophils % (Manual) Platelet Estimate Platelet Comment Puncture Site ABG pH ABG pCO2 at Pt Temp ABG pO2 at Pt Temp ABG HCO3 ABG O2 Sat (Measured) ABG O2 Content ABG Base Excess Sorin Test O2 Delivery Device Oxygen Flow Rate Vent Mode Vent Rate Mechanical Rate PEEP Pressure Support Vent Sodium Potassium Chloride Carbon Dioxide Anion Gap BUN Creatinine Creat Clearance w eGFR POC Glucometer > 400 Random Glucose Calcium Phosphorus Magnesium Total Bilirubin AST ALT Alkaline Phosphatase Creatine Kinase Creatine Kinase Index CK-MB (CK-2) Troponin I Total Protein Albumin Ur Random Sodium 57 Ur Random Potassium 32.6 Ur Random Chloride 43 Ur Random Urea Nitrogn 380 07/06/17 07/06/17 07/06/17 17:46 20:07 21:00 WBC RBC Hgb Hct MCV MCH MCHC RDW Plt Count MPV Neutrophils % Neutrophils % (Manual) Band Neutrophils % Lymphocytes % Lymphocytes % (Manual) Monocytes % (Manual) Eosinophils % (Manual) Basophils % (Manual) Platelet Estimate Platelet Comment Puncture Site ABG pH ABG pCO2 at Pt Temp ABG pO2 at Pt Temp ABG HCO3 ABG O2 Sat (Measured) ABG O2 Content ABG Base Excess Sorin Test O2 Delivery Device Oxygen Flow Rate Vent Mode Vent Rate Mechanical Rate PEEP Pressure Support Vent Sodium Potassium Chloride Carbon Dioxide Anion Gap BUN Creatinine Creat Clearance w eGFR POC Glucometer [phone] Random Glucose Calcium Phosphorus Magnesium Total Bilirubin AST ALT Alkaline Phosphatase Creatine Kinase 204 Creatine Kinase Index 0.9 CK-MB (CK-2) 1.987 Troponin I 0.91 H* D Total Protein Albumin Ur Random Sodium Ur Random Potassium Ur Random Chloride Ur Random Urea Nitrogn 07/07/17 07/07/17 07/07/17 05:00 05:00 05:00 WBC 30.0 H RBC 3.59 L Hgb 10.0 L Hct 29.8 L MCV 83.0 MCH 27.9 MCHC 33.6 RDW 16.8 H Plt Count 265 MPV 8.1 Neutrophils % No Result Required. Neutrophils % (Manual) 90.0 H D Band Neutrophils % 1.0 Lymphocytes % No Result Required. Lymphocytes % (Manual) 6.0 L D Monocytes % (Manual) 3 L Eosinophils % (Manual) 0.0 D Basophils % (Manual) 0.0 Platelet Estimate Adequate Platelet Comment No clumping noted Puncture Site ABG pH ABG pCO2 at Pt Temp ABG pO2 at Pt Temp ABG HCO3 ABG O2 Sat (Measured) ABG O2 Content ABG Base Excess Sorin Test O2 Delivery Device Oxygen Flow Rate Vent Mode Vent Rate Mechanical Rate PEEP Pressure Support Vent Sodium 139 Potassium 3.6 Chloride 107 Carbon Dioxide 17 L Anion Gap 15 BUN 65 H D Creatinine 5.0 H D Creat Clearance w eGFR 12.02 POC Glucometer Random Glucose 135 H D Calcium 7.1 L Phosphorus 5.3 H D 5.3 H Magnesium 1.6 L 1.6 L Total Bilirubin 0.2 D AST 57 H D ALT 21 Alkaline Phosphatase 75 D Creatine Kinase 169 Creatine Kinase Index 0.8 CK-MB (CK-2) 1.414 Troponin I 1.33 H* D Total Protein 6.3 L Albumin 2.2 L Ur Random Sodium Ur Random Potassium Ur Random Chloride Ur Random Urea Nitrogn 11/28/17 11/28/17 07:20 07:40 WBC RBC Hgb Hct MCV MCH MCHC RDW Plt Count MPV Neutrophils % Neutrophils % (Manual) Band Neutrophils % Lymphocytes % Lymphocytes % (Manual) Monocytes % (Manual) Eosinophils % (Manual) Basophils % (Manual) Platelet Estimate Platelet Comment Puncture Site Arterial line ABG pH 7.33 L ABG pCO2 at Pt Temp 27.7 L ABG pO2 at Pt Temp 139.0 H D ABG HCO3 14.2 L* ABG O2 Sat (Measured) 98.3 ABG O2 Content 13.6 L ABG Base Excess -10.2 L* Sorin Test Y O2 Delivery Device Vent Oxygen Flow Rate 80 Vent Mode A/c Vent Rate 28 Mechanical Rate Yes PEEP 8.0 Pressure Support Vent 500 Sodium Potassium Chloride Carbon Dioxide Anion Gap BUN Creatinine Creat Clearance w eGFR POC Glucometer Random Glucose Calcium Phosphorus Magnesium Total Bilirubin AST ALT Alkaline Phosphatase Creatine Kinase Cancelled Creatine Kinase Index CK-MB (CK-2) Troponin I Cancelled Total Protein Albumin Ur Random Sodium Ur Random Potassium Ur Random Chloride Ur Random Urea Nitrogn Active Medications Generic Name Dose Route Start Last Admin Trade Name Freq PRN Reason Stop Dose Admin Acetaminophen 1,000 mg 07/06/17 22:34 07/07/17 10:02 Ofirmev Injection - IVPB 1,000 mg Q6H PRN Administration FEVER OR PAIN Albuterol Sulfate 1 amp 07/05/17 06:15 Ventolin 0.083% Nebulizer Soln - NEB Q4H PRN SHORT OF BREATH/WHEEZING Clonazepam 1 mg 07/06/17 10:19 Klonopin - PO BID PRN Twitching Propofol 1,000,000 mcg in 100 mls @ 2.858 mls/hr 07/05/17 02:15 07/07/17 02: 23 Diprivan - IVPB 38.6 mcg/kg/min TITR PAULINE 22.061 mls/hr Protocol Administration 5 MCG/KG/MIN Fentanyl 500 mcg/ Dextrose 100 mls @ 20 mls/hr 07/05/17 06:15 07/07/17 08:34 IVPB 20 mls/hr TITR PAULINE Administration 100 MCG/HR Piperacillin Sod/Tazobactam 50 mls @ 100 mls/hr 07/05/17 18:00 11/28/17 10:04 Sod 2.25 gm/ Dextrose IVPB 100 mls/hr Q8H-IV PAULINE Administration Insulin Human Regular 100 100 mls @ 9.53 mls/hr 07/06/17 14:45 07/07/17 04:00 units/ Sodium Chloride IVPB 0 units/kg/hr TITR PAULINE 0 mls/hr Protocol Titration 0.1 UNITS/KG/HR Insulin Aspart 1 vial 07/07/17 18:00 Novolog Vial Sliding Scale - SQ Q4HPO PAULINE Protocol ASSESSMENT/PLAN: Pt is a 56 M w/ PMH HTN, HL, DM, CKD, and HIV on HAART who presented to ED with cardiopulmonary arrest. Pt is now intubated and sedated. Prior to arriving at the ED, pt had been complaining of wheezing and SOB. On arriving in ED, pt was in arrest and was coded for 5 min. #Cardio -Cardiopulmonary arrest -pt was coded in ED for at least 5 min -intubated and sedated. Weaning as tolerated -Propofol -Fentanyl -Pt was placed on hypothermia protocol. Passively rewarming today -Echo showed moderate-severe LV dysfunction -Pt making Tn now. Tn 0.07 -> 0.36 -> 0.53 -> 0.91 -> 1.33. Trending for peak. -EKG showing diffuse anterolat T inversions new since previous EKG -Cards consulted -holding Lasix at this time #Neuro -Anoxic brain injury -Neuro on board -Pt was down and coded for several minutes -now exhibiting myoclonic jerks -klonopin per neuro #ID -HIV positive -pt sees Dr. Vital as outpt -has been resistant to several medications -HIV meds on hold for now -Leukocytosis -WBC 26 -> 30 -possibly reactive -cannot r/o infection at this time -Pt on Vanc/Zosyn per ID #Nephro -FLORECITA on CKD -[employer] 3.7 -> 5.0 -Nephro on board -FLORECITA likely worsened by arrest -Hold lasix for now #Endocrine -DM -ISS #FEN -on NS -Pseudohypocalcemia -Intubated sedated #PPx -no heparin in hypothermia protocol #Dispo -admitted to ICU Mukesh Niño MD PGY-1, ICU Visit type - Emergency Visit Emergency Visit: No - New Patient This patient is new to me today: No - Critical Care Critical Care patient: No - Discharge Referral Referred to [facility] No
[2017-07-07 15:38] LABS: TROPONIN I 1.09 ng/ml (0.00-0.05)
--- NOTE | 2017-07-07 15:40 | PN ---
Progress Note, Physician History of Present Illness: Pt seen and examined at bedside. He remains in the ICU. Pt remains intubated and mechanically ventilated. Pt has sky and is making urine however his renal function is worse. He is lethargic. - Current Medication List Current Medications: Active Medications Acetaminophen (Ofirmev Injection -) 1,000 mg IVPB Q6H PRN PRN Reason: FEVER OR PAIN Last Admin: 07/07/17 10:02 Dose: 1,000 mg Albuterol Sulfate (Ventolin 0.083% Nebulizer Soln -) 1 amp NEB Q4H PRN PRN Reason: SHORT OF BREATH/WHEEZING Clonazepam (Klonopin -) 1 mg PO BID PRN PRN Reason: Twitching Propofol (Diprivan -) 1,000,000 mcg in 100 mls @ 2.858 mls/hr IVPB TITR PAULINE; 5 MCG/KG/MIN PRN Reason: Protocol Last Admin: 07/07/17 02:23 Dose: 38.6 mcg/kg/min, 22.061 mls/hr Fentanyl 500 mcg/ Dextrose 100 mls @ 20 mls/hr IVPB TITR PAULINE PRN Reason: 100 MCG/HR Last Admin: 07/07/17 08:34 Dose: 20 mls/hr Piperacillin Sod/Tazobactam (Sod 2.25 gm/ Dextrose) 50 mls @ 100 mls/hr IVPB Q8H-IV PAULINE Last Admin: 07/07/17 10:04 Dose: 100 mls/hr Insulin Human Regular 100 (units/ Sodium Chloride) 100 mls @ 9.53 mls/hr IVPB TITR PAULINE; 0.1 UNITS/KG/HR PRN Reason: Protocol Last Titration: 07/07/17 04:00 Dose: 0 units/kg/hr, 0 mls/hr Insulin Aspart (Novolog Vial Sliding Scale -) 1 vial SQ Q4HPO PAULINE PRN Reason: Protocol Last Admin: 07/07/17 14:22 Dose: 10 units Metoprolol Tartrate (Lopressor -) 25 mg PO BID PAULINE - Objective Vital Signs: Vital Signs Temperature 98.2 F 07/07/17 14:47 Pulse Rate 94 H 07/07/17 14:47 Respiratory Rate 28 H 07/07/17 14:47 Blood Pressure 149/70 07/07/17 14:47 O2 Sat by Pulse Oximetry (%) 100 07/07/17 10:25 Constitutional: Yes: Calm Eyes: Yes: Conjunctiva Clear Cardiovascular: Yes: Tachycardia, S1, S2 Respiratory: Yes: Mechanically Ventilated Gastrointestinal: Yes: Soft Genitourinary: Yes: Sky Present Musculoskeletal: Yes: Muscle Weakness Edema: Yes Edema: LLE: Trace, RLE: Trace Integumentary: Yes: WNL Neurological: Yes: Lethargy Labs: CBC, BMP 07/07/17 05:00 07/07/17 05:00 INR, PTT INR 1.18 (0.82-1.09) H 07/06/17 05:00 - ....Imaging Chest X-ray: Report Reviewed Other: Report Reviewed (echo reviewed) Problem List - Problems (1) FLORECITA (acute kidney injury) Code(s): N17.9 - ACUTE KIDNEY FAILURE, UNSPECIFIED (2) CHF (congestive heart failure) Code(s): I50.9 - HEART FAILURE, UNSPECIFIED Qualifiers: Congestive heart failure type: unspecified congestive heart failure type Congestive heart failure chronicity: unspecified congestive heart failure chronicity Qualified Code(s): I50.9 - Heart failure, unspecified (3) Cardiopulmonary arrest with successful resuscitation Code(s): I46.9 - CARDIAC ARREST, CAUSE UNSPECIFIED (4) Chronic kidney disease Code(s): N18.9 - CHRONIC KIDNEY DISEASE, UNSPECIFIED (5) Hypertension Code(s): I10 - ESSENTIAL (PRIMARY) HYPERTENSION (6) Chronic kidney disease Code(s): N18.9 - CHRONIC KIDNEY DISEASE, UNSPECIFIED Assessment/Plan Current Medications Generic Name Dose Route Start Last Admin Trade Name Luis Fernando PRN Reason Stop Dose Admin Acetaminophen 1,000 mg 07/06/17 22:34 07/07/17 10:02 Ofirmev Injection - IVPB 1,000 mg Q6H PRN Administration FEVER OR PAIN Albuterol Sulfate 1 amp 07/05/17 06:15 Ventolin 0.083% Nebulizer Soln - NEB Q4H PRN SHORT OF BREATH/WHEEZING Clonazepam 1 mg 07/06/17 10:19 Klonopin - PO BID PRN Twitching Propofol 1,000,000 mcg in 100 mls @ 2.858 mls/hr 07/05/17 02:15 07/07/17 02: 23 Diprivan - IVPB 38.6 mcg/kg/min TITR PAULINE 22.061 mls/hr Protocol Administration 5 MCG/KG/MIN Fentanyl 500 mcg/ Dextrose 100 mls @ 20 mls/hr 07/05/17 06:15 07/07/17 08:34 IVPB 20 mls/hr TITR PAULINE Administration 100 MCG/HR Piperacillin Sod/Tazobactam 50 mls @ 100 mls/hr 07/05/17 18:00 07/07/17 10:04 Sod 2.25 gm/ Dextrose IVPB 100 mls/hr Q8H-IV PAULINE Administration Insulin Human Regular 100 100 mls @ 9.53 mls/hr 07/06/17 14:45 07/07/17 04:00 units/ Sodium Chloride IVPB 0 units/kg/hr TITR PAULINE 0 mls/hr Protocol Titration 0.1 UNITS/KG/HR Insulin Aspart 1 vial 07/07/17 14:30 07/07/17 14:22 Novolog Vial Sliding Scale - SQ 10 units Q4HPO PAULINE Administration Protocol Metoprolol Tartrate 25 mg 07/07/17 15:30 Lopressor - PO BID PAULINE Impression 1. FLORECITA 2. CKD 3. cardiac arrest 4. CHF 5. HIV 6. hypomagnesemia 7. anoxic brain injury Plan - renal function is worsening - likely atn from hypotension during arrest - cont vent support - neuro input appreciatd - renal ultrasound reviewed, echogenic kidneys - monitor urine output - cont supportive care - discussed with cardio, will hold lasix today - monitor pulse ox and abg - discussed with ICU team - trend cardiac enzymes - prognosis guarded
[2017-07-07] MEDS: METOPROLOL TARTRATE 25 MG TABLET (FP) PO SCH ×2 (16:01→21:34)
--- NOTE | 2017-07-07 21:42 | PN ---
Progress Note, Physician History of Present Illness: Pt remains intubated - Current Medication List Current Medications: Active Medications Acetaminophen (Ofirmev Injection -) 1,000 mg IVPB Q6H PRN PRN Reason: FEVER OR PAIN Last Admin: 07/07/17 10:02 Dose: 1,000 mg Albuterol Sulfate (Ventolin 0.083% Nebulizer Soln -) 1 amp NEB Q4H PRN PRN Reason: SHORT OF BREATH/WHEEZING Clonazepam (Klonopin -) 1 mg PO BID PRN PRN Reason: Twitching Propofol (Diprivan -) 1,000,000 mcg in 100 mls @ 2.858 mls/hr IVPB TITR PAULINE; 5 MCG/KG/MIN PRN Reason: Protocol Last Admin: 07/07/17 21:32 Dose: 50 mcg/kg/min, 28.576 mls/hr Fentanyl 500 mcg/ Dextrose 100 mls @ 20 mls/hr IVPB TITR PAULINE PRN Reason: 100 MCG/HR Last Admin: 07/07/17 20:00 Dose: 20 mls/hr Piperacillin Sod/Tazobactam (Sod 2.25 gm/ Dextrose) 50 mls @ 100 mls/hr IVPB Q8H-IV PAULINE Last Admin: 07/07/17 19:34 Dose: Not Given Insulin Aspart (Novolog Vial Sliding Scale -) 1 vial SQ Q4HPO PAULINE PRN Reason: Protocol Last Admin: 07/07/17 18:06 Dose: Not Given Metoprolol Tartrate (Lopressor -) 25 mg PO BID PAULINE Last Admin: 07/07/17 21:34 Dose: 25 mg - Objective Vital Signs: Vital Signs Temperature 98.2 F 07/07/17 14:47 Pulse Rate 123 H 07/07/17 20:09 Respiratory Rate 30 H 07/07/17 21:00 Blood Pressure 162/89 07/07/17 20:09 O2 Sat by Pulse Oximetry (%) 100 07/07/17 10:25 HENT: Yes: Other ((+) ETT) Cardiovascular: Yes: Tachycardia Respiratory: Yes: Wheezes Gastrointestinal: Yes: WNL, Normal Bowel Sounds, Soft Edema: LLE: Trace, RLE: Trace Labs: CBC, BMP 07/07/17 05:00 07/07/17 05:00 INR, PTT INR 1.18 (0.82-1.09) H 07/06/17 05:00 Problem List - Problems (1) Respiratory failure Code(s): J96.90 - RESPIRATORY FAILURE, UNSP, UNSP W HYPOXIA OR HYPERCAPNIA (2) Cardiopulmonary arrest with successful resuscitation Code(s): I46.9 - CARDIAC ARREST, CAUSE UNSPECIFIED (3) Acute on chronic diastolic CHF (congestive heart failure) Code(s): I50.33 - ACUTE ON CHRONIC DIASTOLIC (CONGESTIVE) HEART FAILURE (4) Uncontrolled diabetes mellitus Code(s): E11.65 - TYPE 2 DIABETES MELLITUS WITH HYPERGLYCEMIA
[2017-07-07] MEDS ORDERED: MIDAZOLAM HCL 2 MG/2 ML SINGLE DOSE VIAL IVPUSH ONE (22:38)
[2017-07-07] MEDS ORDERED: PROPOFOL 2,000,000 MCG/200 ML VIAL ONE (23:06)
[2017-07-07 23:09] LABS: ARTERIAL BLD GAS O2 SATURATION 97.5 % (90-98.9); ARTERIAL BLOOD GAS BASE EXCESS -10.9 meq/l (-2-2)
[2017-07-07 23:10] LABS: ARTERIAL BLOOD GAS pH 7.34 (7.35-7.45)
[2017-07-07 23:11] LABS: ALLENS TEST POSITIVE; ART PUNCT SITE ARTERIAL LINE; LPM/O2% 70; MECH. VENT. YES; PT'S TEMP 103.3; PT. ON O2? YES; TYPE OF O2 MECH VENT; VENT RATE 28; VT/PRESS 500
[2017-07-07 23:12] LABS: ARTERIAL BLOOD GAS HCO3 12.6 meq/L (22-26)
[2017-07-07] MEDS: ALBUTEROL SO4 0.083% IH SOL 2.5 MG/3 ML VIAL.NEB. NEB PRN (23:30)
[2017-07-08 00:06] LABS: ASPERGIL AG 0.07 Index (0.00-0.49)
[2017-07-08] MEDS: FENTANYL INJECTION 500 MCG in DEXTROSE 5%-WATER - 90 ML IVPB SCH ×4 (01:47→21:00)
[2017-07-08] MEDS: PIPERACILLIN/TAZOB 2.25 GM 2.25 GM in DEXTROSE 5%-WATER - 50 ML IVPB SCH (01:47)
[2017-07-08] MEDS: PROPOFOL 1,000,000 MCG/100 ML VIAL IVPB SCH ×7 (01:48→22:47)
[2017-07-08] MEDS: INSULIN SLIDING SCALE (NOVOLOG) 1 VIAL SQ SCH ×6 (02:05→22:20)
[2017-07-08] MEDS: ALBUTEROL SO4 0.083% IH SOL 2.5 MG/3 ML VIAL.NEB. NEB PRN (05:30)
[2017-07-08] MEDS ORDERED: PROPOFOL 1,000,000 MCG/100 ML VIAL ONE (05:47)
[2017-07-08 06:23] LABS: MCH 28.2 pg (25.7-33.7); MCHC 33.8 g/dl (32.0-35.9); MEAN CELL VOLUME 83.5 fl (80-96); MEAN PLT VOLUME 8.4 fl (7.5-11.1); PLATELET COUNT 240 K/MM3 (134-434); RDW 17.2 % (11.9-15.9); WHITE BLOOD COUNT 26.3 K/mm3 (4.0-10.0)
[2017-07-08 06:51] LABS: ALBUMIN 2.1 g/dl (3.4-5.0); ANION GAP 16 (8-16); BILIRUBIN,TOTAL 0.6 mg/dL (0.2-1.0); CALCIUM 7.1 mg/dL (8.5-10.1); CO2 17 mmol/L (21-32); CREATININE 6.6 mg/dL (0.7-1.3); GLUCOSE,RANDOM 217 mg/dL (74-106)
[2017-07-08 06:52] LABS: ALK PHOS 66 U/L (45-117)
[2017-07-08 06:56] LABS: SGOT/AST 54 U/L (15-37)
[2017-07-08 06:57] LABS: SGPT/ALT 21 U/L (12-78)
[2017-07-08] MEDS ORDERED: fentaNYL CITRATE 250 MCG/5 ML VIAL ONE ×4 (07:08→19:15)
--- NOTE | 2017-07-08 07:40 | PN ---
Progress Note (short form) - Note Progress Note: ID Remains comatose (sedation) on the ventilator 60 % fio2 Empiric antibiotics Zosyn Febrile to almost 104 despite antibiotics !! Selected Entries 07/07/17 07/08/17 07/08/17 22:00 06:00 07:16 Temperature 103.6 F H Pulse Rate 99 H Respiratory 28 H Rate Blood Pressure 148/72 Weight 211 lb 3 oz Microbiology 07/05/17 21:10 Sputum - Endotrachea Suction/Ventilator Gram Stain - Final 07/05/17 13:30 Urine - Urine Rocha Legionella Antigen - Final 07/05/17 13:30 Urine - Urine Rocha Streptococcus pneumoniae Antigen (M - Final 07/05/17 13:30 Stool Cryptosporidium Antigen - Final 07/05/17 13:30 Stool Giardia Antigen (RACHEL) - Final 07/05/17 13:30 Nares - Left Nares MRSA Screen - Final NO MRSA ISOLATED 07/05/17 21:10 Sputum - Endotrachea Suction/Ventilator Sputum Culture - Preliminary Presumptive Mssa (Pbp2a Neg) 07/05/17 13:30 Stool Shiga Toxin Test - Preliminary 07/05/17 13:30 Stool Clostridium difficile (PCR) - Preliminary Laboratory Tests 07/07/17 07/08/17 07/08/17 05:00 05:15 05:15 WBC 26.3 H Hgb 9.5 L Hct 28.3 L Plt Count 240 Neutrophils % (Manual) 90.0 H D Band Neutrophils % 1.0 Lymphocytes % (Manual) 6.0 L D Monocytes % (Manual) 3 L BUN 84 H D Creat Clearance w eGFR 8.73 Total Bilirubin 0.6 D AST 54 H ALT 21 Alkaline Phosphatase 66 Assessment S/P cardiac arrest pulseless HIV infection has been stable on Preszista Norvir and Dolutegravir Fever could be pneumonia related but central fever considered secondary hypoxic brain injury Acute and chronic reanl failure Acute pulmonary edema MSSA pneumonia Plan Stop Zosyn Ceftriaxone and metronidazole Prognosis poor Amanuel ROJAS Problem List - Problems (1) Cardiopulmonary arrest with successful resuscitation Code(s): I46.9 - CARDIAC ARREST, CAUSE UNSPECIFIED (2) Uncontrolled diabetes mellitus Code(s): E11.65 - TYPE 2 DIABETES MELLITUS WITH HYPERGLYCEMIA (3) Sepsis Code(s): A41.9 - SEPSIS, UNSPECIFIED ORGANISM (4) Chronic kidney disease Code(s): N18.9 - CHRONIC KIDNEY DISEASE, UNSPECIFIED (5) Hypertension Code(s): I10 - ESSENTIAL (PRIMARY) HYPERTENSION
[2017-07-08 08:33] LABS: TOTAL CELLS COUNTED 100
[2017-07-08] MEDS: ACETAMINOPHEN 1000 MG/100 ML VIAL (NON FORMULARY) IVPB PRN (08:54)
[2017-07-08] MEDS: METRONIDAZOLE 500 MG PREMIXED 500 MG/100 ML MG IVPB SCH ×2 (09:16→17:19)
[2017-07-08] MEDS ORDERED: LABETALOL HCL 5 MG/1 ML (100MG/20 ML VIAL) IVPUSH ONE (09:50)
--- NOTE | 2017-07-08 09:54 | PN ---
Progress Note (short form) - Note Progress Note: Neurology History of Present Illness: Mr. Welch is a 56 y/o man w/ HTN, HL, DM, CKD, HIV on HAART, EF 49.5%, BIBA for SOB. Reportedly had been experiencing worsening SOB & SAMUELS w/ assoc wheezing for several days prior to admission. While in route developed further respiratory distress and in ER had agonal breathing and unresponsive. No pulse noted on stretcher transferand chest compressions were initiated. The Pt was resuscitated per ACLS protocol for approximately 5 minutes according to note, receiving epi x 2, bicarb x 2. Pt was intubated and placed on ventilator and given nebulizers and steroids. Pt admitted to the ICU s/p Cardiac Arrest and respiratory failure. The patient has been on propofol but having myoclonic twitches especially in right foot. Given his history, this is likely myoclonic jerks 2/2 to anoxic brain injury. Klonipin was started, twitching improved and not visible at this time. He did not demonstrate gag, not responding to pain, there is minimal pupil contriction from 2mm to 1mm and therefore does not meet criteria for brain . However, only minimal brainstem activity and therefore significant concern regarding patient's ability to recover and prognosis. Spoke to ICU staff today, troponins downtrending. EEG completed, awaiting read. Spoke to brother at bedside today and informed him of clinical course and limited improvements. Active Medications Acetaminophen (Ofirmev Injection -) 1,000 mg IVPB Q6H PRN PRN Reason: FEVER OR PAIN Last Admin: 07/08/17 08:54 Dose: 1,000 mg Albuterol Sulfate (Ventolin 0.083% Nebulizer Soln -) 1 amp NEB Q4H PRN PRN Reason: SHORT OF BREATH/WHEEZING Last Admin: 07/08/17 05:30 Dose: 1 amp Clonazepam (Klonopin -) 1 mg PO BID PRN PRN Reason: Twitching Propofol (Diprivan -) 1,000,000 mcg in 100 mls @ 2.858 mls/hr IVPB TITR PAULINE; 5 MCG/KG/MIN PRN Reason: Protocol Last Admin: 07/08/17 08:53 Dose: 60 mcg/kg/min, 34.291 mls/hr Fentanyl 500 mcg/ Dextrose 100 mls @ 20 mls/hr IVPB TITR PAULINE PRN Reason: 100 MCG/HR Last Admin: 07/08/17 07:10 Dose: 20 mls/hr Ceftriaxone Sodium 2 gm/ (Dextrose) 100 mls @ 200 mls/hr IVPB DAILY PAULINE Metronidazole (Flagyl 500mg Premixed Ivpb -) 500 mg in 100 mls @ 100 mls/hr IVPB Q8H-IV PAULINE Last Admin: 07/08/17 09:16 Dose: 100 mls/hr Insulin Aspart (Novolog Vial Sliding Scale -) 1 vial SQ Q4HPO PAULINE PRN Reason: Protocol Last Admin: 07/08/17 06:04 Dose: 4 units Metoprolol Tartrate (Lopressor -) 25 mg PO BID PAULINE Last Admin: 07/07/17 21:34 Dose: 25 mg Physical Exam Vital Signs Temperature 101.2 F H 07/08/17 08:00 Pulse Rate 110 H 07/08/17 08:00 Respiratory Rate 33 H 07/08/17 08:00 Blood Pressure 162/82 07/08/17 08:00 O2 Sat by Pulse Oximetry (%) 100 07/07/17 22:00 Constitutional: Yes: Well Nourished, No Distress, Calm Eyes: Yes: PERRL, Other (R Upward Lat Gaze.) HENT: Yes: WNL, Atraumatic, Normocephalic Neck: Yes: WNL, Supple, Trachea Midline Cardiovascular: Yes: WNL, Regular Rate and Rhythm Respiratory: Yes: Diminished, Mechanically Ventilated, Wheezes Gastrointestinal: Yes: Abdomen, Obese, Distention, Hyperactive Bowel Sounds ...Rectal Exam: Yes: Deferred Renal/: Yes: Rocha Present Breast(s): Yes: WNL Extremities: Yes: Other (Clubbed Fingers.) Edema: Yes Edema: LLE: 1+, RLE: 1+ Peripheral Pulses WNL: Yes Integumentary: Yes: WNL Neurological: No facial droop, not responding to pain, not gagging on suction, R pupil 2mm --> 1mm, no spontaneous movement, R foot myoclonic twitching noted CBCD WBC 26.3 K/mm3 (4.0-10.0) H 07/08/17 05:15 RBC 3.38 M/mm3 (4.00-5.60) L 07/08/17 05:15 Hgb 9.5 GM/dL (11.7-16.9) L 07/08/17 05:15 Hct 28.3 % (35.4-49) L 07/08/17 05:15 MCV 83.5 fl (80-96) 07/08/17 05:15 MCHC 33.8 g/dl (32.0-35.9) 07/08/17 05:15 RDW 17.2 % (11.9-15.9) H 07/08/17 05:15 Plt Count 240 K/MM3 (134-434) 07/08/17 05:15 MPV 8.4 fl (7.5-11.1) 07/08/17 05:15 CMP Sodium 136 mmol/L (136-145) 07/08/17 05:15 Potassium 3.5 mmol/L (3.5-5.1) 07/08/17 05:15 Chloride 103 mmol/L (98-107) 07/08/17 05:15 Carbon Dioxide 17 mmol/L (21-32) L 07/08/17 05:15 Anion Gap 16 (8-16) 07/08/17 05:15 BUN 84 mg/dL (7-18) H D 07/08/17 05:15 Creatinine 6.6 mg/dL (0.7-1.3) H D 07/08/17 05:15 Creat Clearance w eGFR 8.73 (>60) 07/08/17 05:15 Calcium 7.1 mg/dL (8.5-10.1) L 07/08/17 05:15 Total Bilirubin 0.6 mg/dL (0.2-1.0) D 07/08/17 05:15 AST 54 U/L (15-37) H 07/08/17 05:15 ALT 21 U/L (12-78) 07/08/17 05:15 Alkaline Phosphatase 66 U/L (45-117) 07/08/17 05:15 Total Protein 6.0 g/dl (6.4-8.2) L 07/08/17 05:15 Albumin 2.1 g/dl (3.4-5.0) L 07/08/17 05:15 Plan: 56 y/o man w/ HTN, HL, DM, CKD, HIV on HAART, EF 49.5%, BIBA for SOB. Reportedly had been experiencing worsening SOB & SAMUELS w/ assoc wheezing for several days prior to admission. While in route developed further respiratory distress and in ER had agonal breathing and unresponsive. No pulse noted on stretcher transferand chest compressions were initiated. The Pt was resuscitated per ACLS protocol for approximately 5 minutes according to note, receiving epi x 2, bicarb x 2. Pt was intubated and placed on ventilator and given nebulizers and steroids. Pt admitted to the ICU s/p Cardiac Arrest and respiratory failure. The patient has been on propofol but having myoclonic twitches especially in right foot which have improved with Klonipin However, only minimal brainstem activity and therefore significant concern regarding patient's ability to recover and prognosis. Given his history, this is likely myoclonic jerks 2/2 to anoxic brain injury and would require AEDS klonipin 1mg twice daily added Continue ICU care Continue Mechanical ventilation, wean as able Propofol on board, wean as able Monitor mental status for any improvement Monitor blood pressure, support as required IV Abx for possible PNA as needed CT head when able EEG completed, awaiting report MRI brain when stable Spoke to brother at bedside regarding clinical course and lack of improvement thus far Critical Care Time 35 mins
[2017-07-08 09:57] LABS: ARTERIAL BLD GAS O2 SATURATION 98.8 % (90-98.9); ARTERIAL BLOOD GAS BASE EXCESS -9.7 meq/l (-2-2); ARTERIAL BLOOD GAS HCO3 13.3 meq/L (22-26); ARTERIAL BLOOD GAS pH 7.41 (7.35-7.45)
[2017-07-08 09:58] LABS: ALLENS TEST POSITIVE; ART PUNCT SITE ARTERIAL LINE; PT. ON O2? YES
[2017-07-08 09:59] LABS: LPM/O2% 60
[2017-07-08 10:00] LABS: MECH. VENT. ESPIRIT; PT'S TEMP 101.3
[2017-07-08 10:01] LABS: VT/PRESS 500 TIDAL VOLUME
[2017-07-08 10:02] LABS: VENT RATE 28 RES RATE
[2017-07-08 10:03] LABS: TYPE OF O2 MECH VENT
--- NOTE | 2017-07-08 11:52 | PN ---
Progress Note (short form) - Note Progress Note: Progress Note: CC: SOB/cardiac arrest. s: Cr worsened today. + fever. remains intubated/sedated Current Medications Generic Name Dose Route Start Last Admin Trade Name Luis Fernando PRN Reason Stop Dose Admin Acetaminophen 1,000 mg 07/06/17 22:34 07/08/17 08:54 Ofirmev Injection - IVPB 1,000 mg Q6H PRN Administration FEVER OR PAIN Albuterol Sulfate 1 amp 07/05/17 06:15 07/08/17 05:30 Ventolin 0.083% Nebulizer Soln - NEB 1 amp Q4H PRN Administration SHORT OF BREATH/WHEEZING Clonazepam 1 mg 07/06/17 10:19 Klonopin - PO BID PRN Twitching Propofol 1,000,000 mcg in 100 mls @ 2.858 mls/hr 07/05/17 02:15 07/08/17 08: 53 Diprivan - IVPB 60 mcg/kg/min TITR PAULINE 34.291 mls/hr Protocol Administration 5 MCG/KG/MIN Fentanyl 500 mcg/ Dextrose 100 mls @ 20 mls/hr 07/05/17 06:15 07/08/17 07:10 IVPB 20 mls/hr TITR PAULINE Administration 100 MCG/HR Ceftriaxone Sodium 2 gm/ 100 mls @ 200 mls/hr 07/08/17 08:45 Dextrose IVPB DAILY PAULINE Metronidazole 500 mg in 100 mls @ 100 mls/hr 07/08/17 10:00 07/08/17 09:16 Flagyl 500mg Premixed Ivpb - IVPB 100 mls/hr Q8H-IV PAULINE Administration Insulin Aspart 1 vial 07/07/17 14:30 07/08/17 06:04 Novolog Vial Sliding Scale - SQ 4 units Q4HPO PAULINE Administration Protocol Metoprolol Tartrate 25 mg 07/07/17 15:30 07/07/17 21:34 Lopressor - PO 25 mg BID PAULINE Administration Vital Signs Temp 102 F H 07/08/17 10:02 Pulse 98 H 07/08/17 10:02 Resp 31 H 07/08/17 10:02 BP 128/65 07/08/17 10:02 Pulse Ox 100 07/08/17 09:00 Intake & Output 07/07/17 07/07/17 07/08/17 11:59 23:59 11:59 Intake Total 784.4 1092.8 Output Total 1100 800 Balance -315.6 292.8 Weight 211 lb 6.773 oz 211 lb 3 oz Intake: IV 584.4 652.8 DIPRIVAN - 1,000,000 mcg 344.4 412.8 In 100 ml @ 5 MCG/KG/MIN 2.858 mls/hr IVPB TITR PAULINE Rx#:[id number] fentanyl 240 240 IVPB 150 150 Oral 50 140 Tube Irrigant 150 Output: Gastric Drainage 400 Urine 1100 400 Rocha 1100 400 Other: Voiding Method Indwelling Catheter Indwelling Catheter Indwelling Catheter Bowel Movement No No Yes Weight Measurement Method Built in [facility] Built in [facility] Constitutional: Yes: Well Nourished, No Distress, intubated, sedated. Eyes: No: Sclera Icterus Respiratory: Yes: mechanical breath sounds (anteriorly (pt intubated)). No: Accessory Muscle Use, Rales, Wheezes Gastrointestinal: Yes: Normal Bowel Sounds. No: Distention, Hepatomegaly, Palpable Mass, Tenderness Cardiovascular: Yes: tachcyardic, Regular Rate and Rhythm JVD: No Heart Sounds: Yes: S1, S2. No: Gallop Murmur: No: Systolic Murmur, Diastolic Murmurs) Extremities: No: Cool (feet), Cyanosis Edema: No Integumentary: No: Jaundice Neurological: No: sedated Psychiatric: No: Agitated - Other Data Labs, Other Data: Laboratory Last Values WBC 26.3 K/mm3 (4.0-10.0) H 07/08/17 05:15 RBC 3.38 M/mm3 (4.00-5.60) L 07/08/17 05:15 Hgb 9.5 GM/dL (11.7-16.9) L 07/08/17 05:15 Hct 28.3 % (35.4-49) L 07/08/17 05:15 MCV 83.5 fl (80-96) 07/08/17 05:15 MCH 28.2 pg (25.7-33.7) 07/08/17 05:15 MCHC 33.8 g/dl (32.0-35.9) 07/08/17 05:15 RDW 17.2 % (11.9-15.9) H 07/08/17 05:15 Plt Count 240 K/MM3 (134-434) 07/08/17 05:15 MPV 8.4 fl (7.5-11.1) 07/08/17 05:15 Total Counted 100 07/08/17 05:15 Neutrophils % No Result Required. 07/08/17 05:15 Neutrophils % (Manual) 77.0 % (42.8-82.8) 07/08/17 05:15 Band Neutrophils % 1.0 % 07/08/17 05:15 Lymphocytes % No Result Required. 07/08/17 05:15 Lymphocytes % (Manual) 17.0 % (8-40) D 07/08/17 05:15 Monocytes % 4.5 % (3.8-10.2) 07/06/17 05:00 Monocytes % (Manual) 5 % (3.8-10.2) 07/08/17 05:15 Eosinophils % 0.0 % (0-4.5) D 07/06/17 05:00 Eosinophils % (Manual) 0.0 % (0-4.5) D 07/07/17 05:00 Basophils % 0.3 % (0-2.0) 07/06/17 05:00 Basophils % (Manual) 0.0 % (0-2.0) 07/07/17 05:00 Manual Slide Review No Result Required. 07/06/17 05:00 Platelet Estimate Adequate 07/07/17 05:00 Platelet Comment No clumping noted 07/07/17 05:00 PT with INR 13.30 SEC (9.98-11.88) H 07/06/17 05:00 INR 1.18 (0.82-1.09) H 07/06/17 05:00 PTT (Actin FS) 20.4 SECONDS (26.9-34.4) L 07/05/17 00:45 Anticoagulation Therapy Y 07/05/17 21:00 Puncture Site Arterial line 07/08/17 09:49 Patient Temperature 101.3 07/08/17 09:49 ABG pH 7.41 (7.35-7.45) 07/08/17 09:49 ABG pCO2 at Pt Temp 21.4 mmHg (35-45) L 07/08/17 09:49 ABG pO2 at Pt Temp 151.0 mmHg (80-100) H* 07/08/17 09:49 ABG HCO3 13.3 meq/L (22-26) L* 07/08/17 09:49 ABG O2 Sat (Measured) 98.8 % (90-98.9) 07/08/17 09:49 ABG O2 Content 13.1 % vol (15-22) L 07/08/17 09:49 ABG Base Excess -9.7 meq/l (-2-2) L 07/08/17 09:49 Sorin Test Positive 07/08/17 09:49 VBG pH 6.98 (7.32-7.42) L* 07/05/17 01:00 POC VBG pCO2 69.6 mmHg (38-52) H* 07/05/17 01:00 POC VBG pO2 49.8 mmHg (28-48) H 07/05/17 01:00 Mixed VBG HCO3 15.6 meq/L (19-25) L 07/05/17 01:00 Carboxyhemoglobin 0.2 gm% (0.5-2.0) L 07/05/17 06:00 Methemoglobin 1.0 % (0.4-1.5) 07/05/17 06:00 O2 Delivery Device Mech vent 07/08/17 09:49 Oxygen Flow Rate 60 07/08/17 09:49 Vent Mode A/c 07/08/17 09:49 Vent Rate 28 res rate 07/08/17 09:49 Mechanical Rate Espirit 07/08/17 09:49 PEEP 8.0 cmH2O 07/08/17 09:49 Pressure Support Vent 500 tidal volume 07/08/17 09:49 Sodium 136 mmol/L (136-145) 07/08/17 05:15 Potassium 3.5 mmol/L (3.5-5.1) 07/08/17 05:15 Chloride 103 mmol/L (98-107) 07/08/17 05:15 Carbon Dioxide 17 mmol/L (21-32) L 07/08/17 05:15 Anion Gap 16 (8-16) 07/08/17 05:15 BUN 84 mg/dL (7-18) H D 07/08/17 05:15 Creatinine 6.6 mg/dL (0.7-1.3) H D 07/08/17 05:15 Creat Clearance w eGFR 8.73 (>60) 07/08/17 05:15 POC Glucometer 173.57343 UNITS (80-120) 07/06/17 20:07 Random Glucose 217 mg/dL (74-106) H D 07/08/17 05:15 Lactic Acid 0.8 mmol/L (0.4-2.0) 07/08/17 06:30 Calcium 7.1 mg/dL (8.5-10.1) L 07/08/17 05:15 Phosphorus 5.3 mg/dL (2.5-4.9) H 07/07/17 05:00 Magnesium 1.6 mg/dL (1.8-2.4) L 07/07/17 05:00 Total Bilirubin 0.6 mg/dL (0.2-1.0) D 07/08/17 05:15 AST 54 U/L (15-37) H 07/08/17 05:15 ALT 21 U/L (12-78) 07/08/17 05:15 Alkaline Phosphatase 66 U/L (45-117) 07/08/17 05:15 Creatine Kinase 237 IU/L (39-308) 07/07/17 13:00 Creatine Kinase Index 0.5 % (0.0-5.0) 07/07/17 13:00 CK-MB (CK-2) 1.282 ng/mL (0.5-3.6) 07/07/17 13:00 Troponin I 1.09 ng/ml (0.00-0.05) H* 07/07/17 13:00 B-Natriuretic Peptide 79772.37 pg/ml (5-125) H 07/05/17 00:45 Total Protein 6.0 g/dl (6.4-8.2) L 07/08/17 05:15 Albumin 2.1 g/dl (3.4-5.0) L 07/08/17 05:15 Urine Color Ltyellow 07/05/17 02:10 Urine Appearance Slcloudy 07/05/17 02:10 Urine pH 6.0 (5.0-8.0) 07/05/17 02:10 Ur Specific [place] 1.016 (1.001-1.035) 07/05/17 02:10 Urine Protein 3+ (NEGATIVE) H 07/05/17 02:10 Urine Glucose (UA) 1+ (NEGATIVE) H 07/05/17 02:10 Urine Ketones Negative (NEGATIVE) 07/05/17 02:10 Urine Blood 1+ (NEGATIVE) H 07/05/17 02:10 Urine Nitrite Negative (NEGATIVE) 07/05/17 02:10 Urine Bilirubin Negative (NEGATIVE) 07/05/17 02:10 Urine Urobilinogen Negative mg/dL (0.2-1.0) 07/05/17 02:10 Ur Leukocyte Esterase Negative (NEGATIVE) 07/05/17 02:10 Urine WBC (Auto) 3 /hpf (3-5) 07/05/17 02:10 Urine RBC (Auto) 14 /hpf (0-3) 07/05/17 02:10 Hyaline Casts 1 /lpf 07/05/17 02:10 Urine Mucus Rare 07/05/17 02:10 Ur Random Sodium 57 MMOL/L 07/06/17 14:50 Ur Random Potassium 32.6 MMOL/L 07/06/17 14:50 Ur Random Chloride 43 MMOL/L 07/06/17 14:50 Ur Random Urea Nitrogn 380 mg/dL 07/06/17 14:50 Tobramycin Trough 3.1 ug/ml (0.0-2.0) H* 07/06/17 05:00 Random Vancomycin < 0.800 ug/ml 07/05/17 05:00 Beta-(1,3)-D-Glucan 41 pg/mL (<80) 07/05/17 08:05 tele: sr EKG 07/07: sinus tach with pvc's. new difufes TWI. worse in precordial leads. prolonged qtc. cxr 07/08: b/l effs 07/05 #2: no change 07/06: effusions have resolved, diffuse infiltrates improving ECG #1: sinus tach, normal axis, +/- long QT (mild); no pathol q waves; borderline ischemic appearing ST depressions inferior leads and V6 (no old but this was not reported on 12/24 office ecg) #2: NSR, STs resolving ECG 07/07: MPI 05/26: no ischemia, EF 33% (global echo 06/2017: nl lv size. LV fn mod-sev reduced (global). nl rv size/fn. 1+ mac/mr/tr. rvsp 30-40. + pleural effusion. Echo 05/26 (): mod LVE, mild global LV hypo; nl RV; mild LAE; mild MR Echo 12/24: nl LV and RV, nl valves est cct 35 mins a/p: 56 yo smoker with h/o mild lv dysfunction, htn, hl, ckd, hiv, dm p/w progressive sob and subsequent PEA arrest with EMS (s/p resuscitation). acute hypoxic resp failure, acute on chronic syst CHF: -still with effs on cxr -resting echo 05/26 with mild LV dysfunction, ? worse (nuclear estimated EF 33%) , ? underlying CAD with balanced ischemia on nuclear--of note, ECG initially here with borderline ST changes for ischemia. ? diast chf component mixed in. -trop mildly elevated, now trending down. likely from demand. -received lasix drip 07/05 and 40mg iv 07/06 but now stopped due to worsening cr -repeat echo here with worsened systolic function. consider invasive ischemia eval (cath) prior to hosp discharge depending in clinical course -cont beta blockade. -limit qtc prolonging drugs when possible as qtc slightly long on ecg cardiac arrest (PEA): -sec to acute chf/hypoxia most likely -telem with stable rhythm (sinus) -cont monitoring, optimization of chf and acid-base status, as doing - neuro note reviewed: Pt was resuscitated per ACLS protocol for approximately 5 minutes according to note, receiving epi x 2, bicarb x 2. Per report, exam c/ w anoxic brain injury with only minimal brainstem activity at present - poor prognosis. FLORECITA on CKD: -baseline creat here 2.8 in 05/26. initially 2.4 on presentation to ER -suspect hypoperfusion/atn as cause, cr still rising today -hold lasix -renal following HTN: -cont bb HIV/Hep C: -per ID team + tobacco - cessation counseling if patient's clinical condition improves.
[2017-07-08] MEDS: METOPROLOL TARTRATE 25 MG TABLET (FP) PO SCH ×2 (12:05→22:16)
--- NOTE | 2017-07-08 12:42 | PN ---
Teaching Attending Note Name of Resident: Mukesh Niño ATTENDING PHYSICIAN STATEMENT I saw and evaluated the patient. I reviewed the resident's note and discussed the case with the resident. I agree with the resident's findings and plan as documented. SUBJECTIVE: Pt seen and examined in the ICU. Remains intubated, sedated on propofol and fentanyl gtts. Vented on volume assist control with 60% FiO2. Febrile overnight. OBJECTIVE: Last Vital Signs Temp Pulse Resp BP Pulse Ox 102.5 F H 100 H 30 H 116/59 100 07/08/17 12:18 07/08/17 12:18 07/08/17 12:18 07/08/17 12:18 07/08/17 10:00 Intake & Output 07/05/17 07/06/17 07/07/17 07/08/17 23:59 23:59 23:59 23:59 Intake Total 761.8 1345 784.4 1092.8 Output Total 3000 1850 1100 800 Balance -2238.2 -505 -315.6 292.8 Weight 218 lb 4.122 oz 210 lb 5 oz 211 lb 6.773 oz 211 lb 3 oz Gen: intubated, sedated Heart: tachycardic, regular Lung: scattered rhonchi Abd: softly distended, nontender Ext: + edema CBC, BMP 07/08/17 05:15 07/08/17 05:15 Active Medications Acetaminophen (Ofirmev Injection -) 1,000 mg IVPB Q6H PRN PRN Reason: FEVER OR PAIN Last Admin: 07/08/17 08:54 Dose: 1,000 mg Albuterol Sulfate (Ventolin 0.083% Nebulizer Soln -) 1 amp NEB Q4H PRN PRN Reason: SHORT OF BREATH/WHEEZING Last Admin: 07/08/17 05:30 Dose: 1 amp Clonazepam (Klonopin -) 1 mg PO BID PRN PRN Reason: Twitching Propofol (Diprivan -) 1,000,000 mcg in 100 mls @ 2.858 mls/hr IVPB TITR PAULINE; 5 MCG/KG/MIN PRN Reason: Protocol Last Admin: 07/08/17 12:07 Dose: 60 mcg/kg/min, 34.291 mls/hr Fentanyl 500 mcg/ Dextrose 100 mls @ 20 mls/hr IVPB TITR PAULINE PRN Reason: 100 MCG/HR Last Admin: 07/08/17 07:10 Dose: 20 mls/hr Ceftriaxone Sodium 2 gm/ (Dextrose) 100 mls @ 200 mls/hr IVPB DAILY PAULINE Metronidazole (Flagyl 500mg Premixed Ivpb -) 500 mg in 100 mls @ 100 mls/hr IVPB Q8H-IV PAULINE Last Admin: 07/08/17 09:16 Dose: 100 mls/hr Insulin Aspart (Novolog Vial Sliding Scale -) 1 vial SQ Q4HPO PAULINE PRN Reason: Protocol Last Admin: 07/08/17 12:06 Dose: 2 units Metoprolol Tartrate (Lopressor -) 25 mg PO BID [facility] Last Admin: 07/08/17 12:05 Dose: 25 mg ASSESSMENT AND PLAN: s/p Cardiopulmonary Arrest Likely Anoxic Brain Injury Acute on Chronic Systolic Heart Failure +Troponins Acute on Chronic Renal Failure Lactic Acidosis resolved HTN HIV Hep C Smoker - continue antibiotics - f/u cultures - monitro urine output, creatinine - minimize sedation to assess mental status - f/u EEG - will obtain CT head noncontrast to assess for anoxic brain injury - taper FiO2 to keep SpO2 >90% - not a candidate for weaning due to poor mental status - enteral feeds - DVT/GI prophylaxis - poor overall prognosis for meaningful recovery critical care time spent in reviewing chart, evaluating patient and formulating plan 35 min
--- NOTE | 2017-07-08 12:50 | PN ---
Progress Note, Physician History of Present Illness: Pt seen and examined at bedside. Pt remains in the ICU. Pt remains intubated. - Current Medication List Current Medications: Active Medications Acetaminophen (Ofirmev Injection -) 1,000 mg IVPB Q6H PRN PRN Reason: FEVER OR PAIN Last Admin: 07/08/17 08:54 Dose: 1,000 mg Albuterol Sulfate (Ventolin 0.083% Nebulizer Soln -) 1 amp NEB Q4H PRN PRN Reason: SHORT OF BREATH/WHEEZING Last Admin: 07/08/17 05:30 Dose: 1 amp Clonazepam (Klonopin -) 1 mg PO BID PRN PRN Reason: Twitching Propofol (Diprivan -) 1,000,000 mcg in 100 mls @ 2.858 mls/hr IVPB TITR PAULINE; 5 MCG/KG/MIN PRN Reason: Protocol Last Admin: 07/08/17 12:07 Dose: 60 mcg/kg/min, 34.291 mls/hr Fentanyl 500 mcg/ Dextrose 100 mls @ 20 mls/hr IVPB TITR PAULINE PRN Reason: 100 MCG/HR Last Admin: 07/08/17 07:10 Dose: 20 mls/hr Ceftriaxone Sodium 2 gm/ (Dextrose) 100 mls @ 200 mls/hr IVPB DAILY PAULINE Metronidazole (Flagyl 500mg Premixed Ivpb -) 500 mg in 100 mls @ 100 mls/hr IVPB Q8H-IV PAULINE Last Admin: 07/08/17 09:16 Dose: 100 mls/hr Insulin Aspart (Novolog Vial Sliding Scale -) 1 vial SQ Q4HPO PAULINE PRN Reason: Protocol Last Admin: 07/08/17 12:06 Dose: 2 units Metoprolol Tartrate (Lopressor -) 25 mg PO BID PAULINE Last Admin: 07/08/17 12:05 Dose: 25 mg - Objective Vital Signs: Vital Signs Temperature 102.5 F H 07/08/17 12:18 Pulse Rate 100 H 07/08/17 12:18 Respiratory Rate 30 H 07/08/17 12:18 Blood Pressure 116/59 07/08/17 12:18 O2 Sat by Pulse Oximetry (%) 100 07/08/17 10:00 Constitutional: Yes: Calm Eyes: Yes: Conjunctiva Clear Cardiovascular: Yes: Tachycardia, S1, S2 Respiratory: Yes: Mechanically Ventilated Gastrointestinal: Yes: Soft Genitourinary: Yes: Rocha Present, Incontinence Musculoskeletal: Yes: Muscle Weakness Edema: Yes Edema: LLE: 1+, RLE: 1+ Neurological: Yes: Lethargy Labs: CBC, BMP 07/08/17 05:15 07/08/17 05:15 INR, PTT INR 1.18 (0.82-1.09) H 07/06/17 05:00 - ....Imaging Chest X-ray: Report Reviewed Problem List - Problems (1) FLORECITA (acute kidney injury) Code(s): N17.9 - ACUTE KIDNEY FAILURE, UNSPECIFIED (2) CHF (congestive heart failure) Code(s): I50.9 - HEART FAILURE, UNSPECIFIED Qualifiers: Congestive heart failure type: unspecified congestive heart failure type Congestive heart failure chronicity: unspecified congestive heart failure chronicity Qualified Code(s): I50.9 - Heart failure, unspecified (3) Cardiopulmonary arrest with successful resuscitation Code(s): I46.9 - CARDIAC ARREST, CAUSE UNSPECIFIED (4) Chronic kidney disease Code(s): N18.9 - CHRONIC KIDNEY DISEASE, UNSPECIFIED (5) Hypertension Code(s): I10 - ESSENTIAL (PRIMARY) HYPERTENSION (6) Chronic kidney disease Code(s): N18.9 - CHRONIC KIDNEY DISEASE, UNSPECIFIED Assessment/Plan Current Medications Generic Name Dose Route Start Last Admin Trade Name Freq PRN Reason Stop Dose Admin Acetaminophen 1,000 mg 07/06/17 22:34 07/08/17 08:54 Ofirmev Injection - IVPB 1,000 mg Q6H PRN Administration FEVER OR PAIN Albuterol Sulfate 1 amp 07/05/17 06:15 07/08/17 05:30 Ventolin 0.083% Nebulizer Soln - NEB 1 amp Q4H PRN Administration SHORT OF BREATH/WHEEZING Clonazepam 1 mg 07/06/17 10:19 Klonopin - PO BID PRN Twitching Propofol 1,000,000 mcg in 100 mls @ 2.858 mls/hr 07/05/17 02:15 07/08/17 12: 07 Diprivan - IVPB 60 mcg/kg/min TITR PAULINE 34.291 mls/hr Protocol Administration 5 MCG/KG/MIN Fentanyl 500 mcg/ Dextrose 100 mls @ 20 mls/hr 07/05/17 06:15 07/08/17 07:10 IVPB 20 mls/hr TITR PAULINE Administration 100 MCG/HR Ceftriaxone Sodium 2 gm/ 100 mls @ 200 mls/hr 07/08/17 08:45 Dextrose IVPB DAILY PAULINE Metronidazole 500 mg in 100 mls @ 100 mls/hr 07/08/17 10:00 07/08/17 09:16 Flagyl 500mg Premixed Ivpb - IVPB 100 mls/hr Q8H-IV PAULINE Administration Insulin Aspart 1 vial 07/07/17 14:30 07/08/17 12:06 Novolog Vial Sliding Scale - SQ 2 units Q4HPO PAULINE Administration Protocol Metoprolol Tartrate 25 mg 07/07/17 15:30 07/08/17 12:05 Lopressor - PO 25 mg BID PAULINE Administration Impression 1. FLORECITA 2. CKD 3. cardiac arrest 4. CHF 5. HIV 6. hypomagnesemia 7. anoxic brain injury Plan - renal function continues to worsen - likely worsening ATN - may require HD therapy - discussed with ICU, pt is going for a ct scan today - repeat labs in am - cxr reviewed, can give lasix if he becomes hypoxic - neuro input appreciated - cont vent support - cont ICU care - prognosis guarded
--- NOTE | 2017-07-08 12:53 | EKG ---
Test Reason : Blood Pressure : / mmHG Vent. Rate : 114 BPM Atrial Rate : 114 BPM P-R Int : 132 ms QRS Dur : 088 ms QT Int : 364 ms P-R-T Axes : 067 040 175 degrees QTc Int : 501 ms SINUS TACHYCARDIA WITH OCCASIONAL PREMATURE VENTRICULAR COMPLEXES POSSIBLE LEFT ATRIAL ENLARGEMENT ABNORMAL ECG WHEN COMPARED WITH ECG OF 07-JUL-2017 08:37, NO SIGNIFICANT CHANGE WAS FOUND Confirmed by RAJWINDER ROJAS, CINDY ([id number]) on 07/08/2017 12:53:13 PM Referred By: Vivek GILMAN Confirmed By:CINDY PURDY MD
[2017-07-08] MEDS: CEFTRIAXONE 2 GM in DEXTROSE 5%-WATER - 100 ML IVPB SCH ×2 (13:27)
[2017-07-08] MEDS ORDERED: ACETAMINOPHEN 1000 MG/100 ML VIAL (NON FORMULARY) IVPB PRN (13:32)
--- NOTE | 2017-07-08 15:09 | PN ---
Physical Exam: SUBJECTIVE: Patient seen and examined at bedside. Pt intubated and sedated. Febrile. Hypertensive. OBJECTIVE: Vital Signs Period Temp Pulse Resp BP Sys/[place] Pulse Ox Last 24 Hr 100.6 F-103.6 F 98-123 28-40 116-169/59-92 96-100 No change. GENERAL: Intubated and sedated. HEAD: Normal with no signs of trauma. EYES: sclera anicteric, conjunctiva clear. No ptosis. ENT: oropharynx clear without exudates, moist mucous membranes. NECK: Trachea midline, full range of motion, supple. LUNGS: Breath sounds equal, clear to auscultation bilaterally, no wheezes, no crackles, no accessory muscle use. HEART: Regular rate and rhythm, S1, S2 without murmur, rub or gallop. ABDOMEN: Soft, nontender, nondistended, normoactive bowel sounds, no guarding, no rebound, no hepatosplenomegaly, no masses. EXTREMITIES: 2+ pulses, warm, well-perfused, no edema. NEUROLOGICAL: Intubated and sedated PSYCH: Intubated and sedated SKIN: Warm, dry, normal turgor, no rashes or lesions noted Laboratory Results - last 24 hr 07/05/17 07/07/17 07/07/17 08:05 13:00 22:50 WBC RBC Hgb Hct MCV MCH MCHC RDW Plt Count MPV Total Counted Neutrophils % Neutrophils % (Manual) Band Neutrophils % Lymphocytes % Lymphocytes % (Manual) Monocytes % (Manual) Puncture Site Arterial line Patient Temperature 103.3 ABG pH 7.34 L ABG pCO2 at Pt Temp 25.0 L ABG pO2 at Pt Temp 234.0 H* ABG HCO3 12.6 L* ABG O2 Sat (Measured) 97.5 ABG O2 Content 14.5 L ABG Base Excess -10.9 L* Sorin Test Positive O2 Delivery Device Mech vent Oxygen Flow Rate 70 Vent Mode A/c Vent Rate 28 Mechanical Rate Yes PEEP 8.0 Pressure Support Vent 500 Sodium Potassium Chloride Carbon Dioxide Anion Gap BUN Creatinine Creat Clearance w eGFR Random Glucose Lactic Acid Calcium Total Bilirubin AST ALT Alkaline Phosphatase Creatine Kinase 237 Creatine Kinase Index 0.5 CK-MB (CK-2) 1.282 Troponin I 1.09 H* Total Protein Albumin Beta-(1,3)-D-Glucan 41 07/08/17 07/08/17 07/08/17 05:15 05:15 06:30 WBC 26.3 H RBC 3.38 L Hgb 9.5 L Hct 28.3 L MCV 83.5 MCH 28.2 MCHC 33.8 RDW 17.2 H Plt Count 240 MPV 8.4 Total Counted 100 Neutrophils % No Result Required. Neutrophils % (Manual) 77.0 Band Neutrophils % 1.0 Lymphocytes % No Result Required. Lymphocytes % (Manual) 17.0 D Monocytes % (Manual) 5 Puncture Site Patient Temperature ABG pH ABG pCO2 at Pt Temp ABG pO2 at Pt Temp ABG HCO3 ABG O2 Sat (Measured) ABG O2 Content ABG Base Excess Sorin Test O2 Delivery Device Oxygen Flow Rate Vent Mode Vent Rate Mechanical Rate PEEP Pressure Support Vent Sodium 136 Potassium 3.5 Chloride 103 Carbon Dioxide 17 L Anion Gap 16 BUN 84 H D Creatinine 6.6 H D Creat Clearance w eGFR 8.73 Random Glucose 217 H D Lactic Acid 0.8 Calcium 7.1 L Total Bilirubin 0.6 D AST 54 H ALT 21 Alkaline Phosphatase 66 Creatine Kinase Creatine Kinase Index CK-MB (CK-2) Troponin I Total Protein 6.0 L Albumin 2.1 L Beta-(1,3)-D-Glucan 07/08/17 09:49 WBC RBC Hgb Hct MCV MCH MCHC RDW Plt Count MPV Total Counted Neutrophils % Neutrophils % (Manual) Band Neutrophils % Lymphocytes % Lymphocytes % (Manual) Monocytes % (Manual) Puncture Site Arterial line Patient Temperature 101.3 ABG pH 7.41 ABG pCO2 at Pt Temp 21.4 L ABG pO2 at Pt Temp 151.0 H* ABG HCO3 13.3 L* ABG O2 Sat (Measured) 98.8 ABG O2 Content 13.1 L ABG Base Excess -9.7 L Sorin Test Positive O2 Delivery Device Mech vent Oxygen Flow Rate 60 Vent Mode A/c Vent Rate 28 res rate Mechanical Rate Espirit PEEP 8.0 Pressure Support Vent 500 tidal volume Sodium Potassium Chloride Carbon Dioxide Anion Gap BUN Creatinine Creat Clearance w eGFR Random Glucose Lactic Acid Calcium Total Bilirubin AST ALT Alkaline Phosphatase Creatine Kinase Creatine Kinase Index CK-MB (CK-2) Troponin I Total Protein Albumin Beta-(1,3)-D-Glucan Active Medications Generic Name Dose Route Start Last Admin Trade Name Freq PRN Reason Stop Dose Admin Albuterol Sulfate 1 amp 07/05/17 06:15 07/08/17 05:30 Ventolin 0.083% Nebulizer Soln - NEB 1 amp Q4H PRN Administration SHORT OF BREATH/WHEEZING Clonazepam 1 mg 07/06/17 10:19 Klonopin - PO BID PRN Twitching Propofol 1,000,000 mcg in 100 mls @ 2.858 mls/hr 07/05/17 02:15 07/08/17 12: 07 Diprivan - IVPB 60 mcg/kg/min TITR PAULINE 34.291 mls/hr Protocol Administration 5 MCG/KG/MIN Fentanyl 500 mcg/ Dextrose 100 mls @ 20 mls/hr 07/05/17 06:15 07/08/17 13:58 IVPB 20 mls/hr TITR PAULINE Administration 100 MCG/HR Ceftriaxone Sodium 2 gm/ 100 mls @ 200 mls/hr 07/08/17 08:45 07/08/17 13:27 Dextrose IVPB 200 mls/hr DAILY PAULINE Administration Metronidazole 500 mg in 100 mls @ 100 mls/hr 07/08/17 10:00 07/08/17 09:16 Flagyl 500mg Premixed Ivpb - IVPB 100 mls/hr Q8H-IV PAULINE Administration Insulin Aspart 1 vial 07/07/17 14:30 07/08/17 12:06 Novolog Vial Sliding Scale - SQ 2 units Q4HPO PAULINE Administration Protocol Metoprolol Tartrate 25 mg 07/07/17 15:30 07/08/17 12:05 Lopressor - PO 25 mg BID PAULINE Administration ASSESSMENT/PLAN: Pt is a 56 M w/ PMH HTN, HL, DM, CKD, and HIV on HAART who presented to ED with cardiopulmonary arrest. Pt is now intubated and sedated. Prior to arriving at the ED, pt had been complaining of wheezing and SOB. On arriving in ED, pt was in arrest and was coded for 5 min. #Cardio -Cardiopulmonary arrest -pt was coded in ED for at least 5 min -intubated and sedated. Weaning as tolerated -Propofol -Fentanyl -Pt was placed on hypothermia protocol. Passively rewarming completed -Echo showed moderate-severe LV dysfunction -Tn peak at 1.33. -EKG showing diffuse anterolat T inversions new since previous EKG -Cards consulted. rec controlling sinus tach in this clinical setting. Likely Tn is combination of demand & sepsis -holding Lasix at this time #Neuro -Anoxic brain injury -Neuro on board -Pt was down and coded for several minutes -now exhibiting myoclonic jerks -klonopin per neuro -per Radiologist Dr. Estrada, Head CT revealed loss of balderas/white junction, and sulcal effacement, but no sign of herniation. -EEG read is pending #ID -HIV positive -pt sees Dr. Vital as outpt -has been resistant to several medications -HIV meds on hold for now -Leukocytosis -WBC 26 -> 30 -> 26 -cannot r/o infection at this time -Pt on Flagyl/Rocephin per ID #Nephro -FLORECITA on CKD -Cloth Tester 3.7 -> 5.0 -> 6.6 -Nephro on board -FLORECITA likely worsened by arrest -Hold lasix for now #Endocrine -DM -ISS #FEN -on NS -Pseudohypocalcemia -Intubated sedated #PPx -Hep SubQ #Dispo -admitted to ICU Mukesh Niño MD PGY-1, ICU Visit type - Emergency Visit Emergency Visit: No - New Patient This patient is new to me today: No - Critical Care Critical Care patient: Yes Total Critical Care Time (in minutes): 37 Critical Care Statement: The care of this patient involved high complexity decision making to prevent further life threatening deterioration of the patient 's condition and/or to evaluate & treat vital organ system(s) failure or risk of failure. - Discharge Referral Referred to [facility] No
[2017-07-08] MEDS: HEPARIN NA (PORCINE) 5,000 UNITS/ML 1ML VIAL SQ SCH ×2 (15:36→22:17)
[2017-07-08] MEDS ORDERED: BENZOIN/ALOE VERA/STORAX/TOLU 58 ML BOTTLE ONE (16:44)
[2017-07-08] MEDS ORDERED: INSULIN (NOVOLOG) ASPART 100 UNITS/ML 10ML VIAL ONE (22:18)
--- NOTE | 2017-07-08 22:48 | PN ---
Progress Note, Physician History of Present Illness: Events of day noted Pt remains intubated - Current Medication List Current Medications: Active Medications Albuterol Sulfate (Ventolin 0.083% Nebulizer Soln -) 1 amp NEB Q4H PRN PRN Reason: SHORT OF BREATH/WHEEZING Last Admin: 07/08/17 05:30 Dose: 1 amp Clonazepam (Klonopin -) 1 mg PO BID PRN PRN Reason: Twitching Heparin Sodium (Porcine) (Heparin -) 5,000 unit SQ TID PAULINE Last Admin: 07/08/17 22:17 Dose: 5,000 unit Propofol (Diprivan -) 1,000,000 mcg in 100 mls @ 2.858 mls/hr IVPB TITR PAULINE; 5 MCG/KG/MIN PRN Reason: Protocol Last Admin: 07/08/17 22:47 Dose: 60 mcg/kg/min, 34.291 mls/hr Fentanyl 500 mcg/ Dextrose 100 mls @ 20 mls/hr IVPB TITR PAULINE PRN Reason: 100 MCG/HR Last Admin: 07/08/17 21:00 Dose: 20 mls/hr Ceftriaxone Sodium 2 gm/ (Dextrose) 100 mls @ 200 mls/hr IVPB DAILY PAULINE Last Admin: 07/08/17 13:27 Dose: 200 mls/hr Metronidazole (Flagyl 500mg Premixed Ivpb -) 500 mg in 100 mls @ 100 mls/hr IVPB Q8H-IV PAULINE Last Admin: 07/08/17 17:19 Dose: 100 mls/hr Insulin Aspart (Novolog Vial Sliding Scale -) 1 vial SQ Q4HPO PAULINE PRN Reason: Protocol Last Admin: 07/08/17 22:20 Dose: 4 units Metoprolol Tartrate (Lopressor -) 25 mg PO BID PAULINE Last Admin: 07/08/17 22:16 Dose: 25 mg - Objective Vital Signs: Vital Signs Temperature 100.9 F H 07/08/17 16:00 Pulse Rate 100 H 07/08/17 16:00 Respiratory Rate 33 H 07/08/17 21:38 Blood Pressure 129/50 07/08/17 16:00 O2 Sat by Pulse Oximetry (%) 100 07/08/17 20:02 HENT: Yes: Other ((+) ETT) Cardiovascular: Yes: Tachycardia Respiratory: Yes: Rhonchi Gastrointestinal: Yes: WNL, Normal Bowel Sounds, Soft Edema: LLE: Trace, RLE: Trace Labs: CBC, BMP 07/08/17 05:15 07/08/17 05:15 INR, PTT INR 1.18 (0.82-1.09) H 07/06/17 05:00 Problem List - Problems (1) Anoxic brain damage Assessment/Plan: CT scan head showed cerebral edema Poor prognosis Code(s): G93.1 - ANOXIC BRAIN DAMAGE, NOT ELSEWHERE CLASSIFIED (2) Respiratory failure Assessment/Plan: IV antibxs changed to IV ceftriaxone/flagyl CXR showed pleural effusions Poor prognosis Code(s): J96.90 - RESPIRATORY FAILURE, UNSP, UNSP W HYPOXIA OR HYPERCAPNIA (3) Cardiopulmonary arrest with successful resuscitation Assessment/Plan: Pt remains intubated (+) troponin Further management as per cardio Code(s): I46.9 - CARDIAC ARREST, CAUSE UNSPECIFIED (4) Acute on chronic diastolic CHF (congestive heart failure) Code(s): I50.33 - ACUTE ON CHRONIC DIASTOLIC (CONGESTIVE) HEART FAILURE (5) Uncontrolled diabetes mellitus Assessment/Plan: Cont sliding scale w/ coverage Code(s): E11.65 - TYPE 2 DIABETES MELLITUS WITH HYPERGLYCEMIA
[2017-07-09] MEDS ORDERED: fentaNYL CITRATE 250 MCG/5 ML VIAL ONE ×4 (00:12→19:39)
[2017-07-09] MEDS: FENTANYL INJECTION 500 MCG in DEXTROSE 5%-WATER - 90 ML IVPB SCH ×4 (00:19→13:45)
[2017-07-09] MEDS ORDERED: INSULIN (NOVOLOG MIX 70/30) 100 UNITS/ML MDV SQ ONE (02:31)
[2017-07-09] MEDS: INSULIN SLIDING SCALE (NOVOLOG) 1 VIAL SQ SCH ×6 (02:49→21:51)
[2017-07-09] MEDS: METRONIDAZOLE 500 MG PREMIXED 500 MG/100 ML MG IVPB SCH ×3 (02:49→17:41)
[2017-07-09] MEDS: PROPOFOL 1,000,000 MCG/100 ML VIAL IVPB SCH ×4 (02:50→17:41)
[2017-07-09] MEDS ORDERED: INSULIN (NOVOLOG) ASPART 100 UNITS/ML 10ML VIAL ONE ×3 (03:18→11:05)
[2017-07-09] MEDS: ALBUTEROL SO4 0.083% IH SOL 2.5 MG/3 ML VIAL.NEB. NEB PRN (05:00)
[2017-07-09] MEDS: HEPARIN NA (PORCINE) 5,000 UNITS/ML 1ML VIAL SQ SCH ×3 (06:18→21:26)
[2017-07-09 06:39] LABS: BASO % 0.5 % (0-2.0); MCHC 33.8 g/dl (32.0-35.9); MEAN CELL VOLUME 82.8 fl (80-96); MEAN PLT VOLUME 8.7 fl (7.5-11.1); NEUT % 70.5 % (42.8-82.8); PLATELET COUNT 214 K/MM3 (134-434); RDW 17.1 % (11.9-15.9); WHITE BLOOD COUNT 20.7 K/mm3 (4.0-10.0)
[2017-07-09 06:58] LABS: ALBUMIN 1.9 g/dl (3.4-5.0); ANION GAP 18 (8-16); CO2 15 mmol/L (21-32); GLUCOSE,RANDOM 150 mg/dL (74-106)
[2017-07-09 07:00] LABS: ALK PHOS 58 U/L (45-117); BILIRUBIN,TOTAL 0.5 mg/dL (0.2-1.0); CREATININE 6.6 mg/dL (0.7-1.3); SGOT/AST 41 U/L (15-37); SGPT/ALT 16 U/L (12-78); TOT PROT 5.9 g/dl (6.4-8.2)
[2017-07-09 07:37] LABS: CALCIUM 6.9 mg/dL (8.5-10.1)
--- NOTE | 2017-07-09 07:48 | PN ---
Progress Note, Physician Chief Complaint: ID Brain edema seen on CT head along with coma Vent dependent Intermittent fevers persists despite antibiotics ? - Current Medication List Current Medications: Active Medications Albuterol Sulfate (Ventolin 0.083% Nebulizer Soln -) 1 amp NEB Q4H PRN PRN Reason: SHORT OF BREATH/WHEEZING Last Admin: 07/09/17 05:00 Dose: 1 amp Clonazepam (Klonopin -) 1 mg PO BID PRN PRN Reason: Twitching Heparin Sodium (Porcine) (Heparin -) 5,000 unit SQ TID PAULINE Last Admin: 07/09/17 06:18 Dose: 5,000 unit Propofol (Diprivan -) 1,000,000 mcg in 100 mls @ 2.858 mls/hr IVPB TITR PAULINE; 5 MCG/KG/MIN PRN Reason: Protocol Last Admin: 07/09/17 02:50 Dose: 60 mcg/kg/min, 34.291 mls/hr Fentanyl 500 mcg/ Dextrose 100 mls @ 20 mls/hr IVPB TITR PAULINE PRN Reason: 100 MCG/HR Last Admin: 07/09/17 06:20 Dose: Not Given Ceftriaxone Sodium 2 gm/ (Dextrose) 100 mls @ 200 mls/hr IVPB DAILY PAULINE Last Admin: 07/08/17 13:27 Dose: 200 mls/hr Metronidazole (Flagyl 500mg Premixed Ivpb -) 500 mg in 100 mls @ 100 mls/hr IVPB Q8H-IV PAULINE Last Admin: 07/09/17 02:49 Dose: 100 mls/hr Insulin Aspart (Novolog Vial Sliding Scale -) 1 vial SQ Q4HPO PAULINE PRN Reason: Protocol Last Admin: 07/09/17 06:18 Dose: Not Given Metoprolol Tartrate (Lopressor -) 25 mg PO BID PAULINE Last Admin: 07/08/17 22:16 Dose: 25 mg - Objective Vital Signs: Vital Signs Temperature 100.4 F H 07/09/17 06:00 Pulse Rate 81 07/09/17 06:00 Respiratory Rate 28 H 07/09/17 07:18 Blood Pressure 133/61 07/09/17 06:00 O2 Sat by Pulse Oximetry (%) 100 07/08/17 20:02 Constitutional: Yes: Other (Vent dependent) Cardiovascular: Yes: Regular Rate and Rhythm, S1, S2 Respiratory: Yes: WNL, Regular, CTA Bilaterally. No: Rhonchi Gastrointestinal: Yes: Soft. No: Ascites, Distention Labs: CBC, BMP 07/09/17 05:10 INR, PTT INR 1.18 (0.82-1.09) H 07/06/17 05:00 Problem List - Problems (1) Cardiopulmonary arrest with successful resuscitation Code(s): I46.9 - CARDIAC ARREST, CAUSE UNSPECIFIED (2) Uncontrolled diabetes mellitus Code(s): E11.65 - TYPE 2 DIABETES MELLITUS WITH HYPERGLYCEMIA (3) Sepsis Code(s): A41.9 - SEPSIS, UNSPECIFIED ORGANISM (4) Chronic kidney disease Code(s): N18.9 - CHRONIC KIDNEY DISEASE, UNSPECIFIED (5) Hypertension Code(s): I10 - ESSENTIAL (PRIMARY) HYPERTENSION Assessment/Plan Microbiology 07/05/17 21:10 Sputum - Endotrachea Suction/Ventilator Gram Stain - Final 07/05/17 13:30 Urine - Urine Rocha Legionella Antigen - Final 07/05/17 13:30 Urine - Urine Rocha Streptococcus pneumoniae Antigen (M - Final 07/05/17 13:30 Stool Cryptosporidium Antigen - Final 07/05/17 13:30 Stool Giardia Antigen (RACHEL) - Final 07/05/17 13:30 Stool Clostridium difficile (PCR) - Final 07/05/17 13:30 Nares - Left Nares MRSA Screen - Final NO MRSA ISOLATED 07/05/17 08:35 Rectal Swab VRE Culture - Final NO VREF ISOLATED 07/05/17 02:10 Urine - Urine - Catheterized Urine Culture - Final NO GROWTH OBTAINED 07/05/17 21:10 Sputum - Endotrachea Suction/Ventilator Sputum Culture - Preliminary Staphylococcus Aureus Strep Agalactiae Group B 07/05/17 13:30 Stool Shiga Toxin Test - Preliminary 07/05/17 08:18 Blood - Peripheral Venous Blood Culture - Preliminary NO GROWTH OBTAINED AFTER 72 HOURS, INCUBATION TO CONTINUE FOR 2 DAYS. 07/05/17 08:05 Blood - Peripheral Venous Blood Culture - Preliminary NO GROWTH OBTAINED AFTER 72 HOURS, INCUBATION TO CONTINUE FOR 2 DAYS. Laboratory Tests 07/07/17 07/08/17 07/09/17 13:00 06:30 05:10 WBC 20.7 H Hgb 9.1 L Hct 26.8 L Plt Count 214 Neutrophils % 70.5 D Lymphocytes % 17.6 D Monocytes % 10.4 H D Eosinophils % 1.0 D Basophils % 0.5 Creatinine Lactic Acid 0.8 Troponin I 1.09 H* 07/09/17 05:10 WBC Hgb Hct Plt Count Neutrophils % Lymphocytes % Monocytes % Eosinophils % Basophils % Creatinine 6.6 H Lactic Acid Troponin I Assessment Cardiac arrest Coma cerebral edema Brain stem dysfunction Leukocytosis ? reactive vs aspiration HIV infection currently off ART Diabetes insulin dependent HPTN Chronic kidney disease now with ACUTE RENAL FAILURE Plan Continue Ceftriaxone and metronidazole Prognosis poor
[2017-07-09] MEDS: METOPROLOL TARTRATE 25 MG TABLET (FP) PO SCH ×2 (09:31→21:26)
[2017-07-09] MEDS: KCL 10 MEQ IVPB 10 MEQ/100 ML INFUS.BAG IVPB SCH ×4 (09:31→16:24)
--- NOTE | 2017-07-09 09:56 | PN ---
Progress Note (short form) - Note Progress Note: Neurology History of Present Illness: Mr. Welch is a 56 y/o man w/ HTN, HL, DM, CKD, HIV on HAART, EF 49.5%, BIBA for SOB. Reportedly had been experiencing worsening SOB & SAMUELS w/ assoc wheezing for several days prior to admission. While in route developed further respiratory distress and in ER had agonal breathing and unresponsive. No pulse noted on stretcher transferand chest compressions were initiated. The Pt was resuscitated per ACLS protocol for approximately 5 minutes according to note, receiving epi x 2, bicarb x 2. Pt was intubated and placed on ventilator and given nebulizers and steroids. Pt admitted to the ICU s/p Cardiac Arrest and respiratory failure. The patient has been on propofol but having myoclonic twitches especially in right foot. Given his history, this is likely myoclonic jerks 2/2 to anoxic brain injury. Klonipin was started, twitching improved and not visible at this time. Patient having gagging on tube. There is minimal pupil contriction from 3mm to 2mm and therefore does not meet criteria for brain . However, only minimal brainstem activity and no significant improvement thus far. EEG completed, awaiting read. CT head completed and showed cerebral edema. Spoke to Dr. rouse regarding hypertonic saline/mannitol but due to renal failure would not be pursued. Spoke to nurse at bedside this AM. Physical Exam Vital Signs Temperature 100.4 F H 07/09/17 06:00 Pulse Rate 81 07/09/17 06:00 Respiratory Rate 28 H 07/09/17 09:19 Blood Pressure 146/68 07/09/17 09:10 O2 Sat by Pulse Oximetry (%) 100 07/08/17 20:02 Constitutional: Yes: Well Nourished, No Distress, Calm Eyes: Yes: PERRL, Other (R Upward Lat Gaze.) HENT: Yes: WNL, Atraumatic, Normocephalic Neck: Yes: WNL, Supple, Trachea Midline Cardiovascular: Yes: WNL, Regular Rate and Rhythm Respiratory: Yes: Diminished, Mechanically Ventilated, Wheezes Gastrointestinal: Yes: Abdomen, Obese, Distention, Hyperactive Bowel Sounds ...Rectal Exam: Yes: Deferred Renal/: Yes: Rocha Present Breast(s): Yes: WNL Extremities: Yes: Other (Clubbed Fingers.) Edema: Yes Edema: LLE: 1+, RLE: 1+ Peripheral Pulses WNL: Yes Integumentary: Yes: WNL Neurological: No facial droop, not responding to pain, not gagging on suction, R pupil 2mm --> 1mm, no spontaneous movement, R foot myoclonic twitching noted CBCD WBC 20.7 K/mm3 (4.0-10.0) H 07/09/17 05:10 RBC 3.24 M/mm3 (4.00-5.60) L 07/09/17 05:10 Hgb 9.1 GM/dL (11.7-16.9) L 07/09/17 05:10 Hct 26.8 % (35.4-49) L 07/09/17 05:10 MCV 82.8 fl (80-96) 07/09/17 05:10 MCHC 33.8 g/dl (32.0-35.9) 07/09/17 05:10 RDW 17.1 % (11.9-15.9) H 07/09/17 05:10 Plt Count 214 K/MM3 (134-434) 07/09/17 05:10 MPV 8.7 fl (7.5-11.1) 07/09/17 05:10 CMP Sodium 139 mmol/L (136-145) 07/09/17 05:10 Potassium 3.4 mmol/L (3.5-5.1) L 07/09/17 05:10 Chloride 106 mmol/L (98-107) 07/09/17 05:10 Carbon Dioxide 15 mmol/L (21-32) L 07/09/17 05:10 Anion Gap 18 (8-16) H 07/09/17 05:10 BUN 87 mg/dL (7-18) H 07/09/17 05:10 Creatinine 6.6 mg/dL (0.7-1.3) H 07/09/17 05:10 Creat Clearance w eGFR 8.73 (>60) 07/09/17 05:10 Calcium 6.9 mg/dL (8.5-10.1) L* 07/09/17 05:10 Total Bilirubin 0.5 mg/dL (0.2-1.0) 07/09/17 05:10 AST 41 U/L (15-37) H D 07/09/17 05:10 ALT 16 U/L (12-78) D 07/09/17 05:10 Alkaline Phosphatase 58 U/L (45-117) 07/09/17 05:10 Total Protein 5.9 g/dl (6.4-8.2) L 07/09/17 05:10 Albumin 1.9 g/dl (3.4-5.0) L 07/09/17 05:10 Plan: 56 y/o man w/ HTN, HL, DM, CKD, HIV on HAART, EF 49.5%, BIBA for SOB. Reportedly had been experiencing worsening SOB & SAMUELS w/ assoc wheezing for several days prior to admission. While in route developed further respiratory distress and in ER had agonal breathing and unresponsive. No pulse noted on stretcher transferand chest compressions were initiated. The Pt was resuscitated per ACLS protocol for approximately 5 minutes according to note, receiving epi x 2, bicarb x 2. Pt was intubated and placed on ventilator and given nebulizers and steroids. Pt admitted to the ICU s/p Cardiac Arrest and respiratory failure. The patient has been on propofol but having myoclonic twitches especially in right foot which have improved with Klonipin However, only minimal brainstem activity and therefore significant concern regarding patient's ability to recover and prognosis. Given his history, this is likely myoclonic jerks 2/2 to anoxic brain injury and would require AEDS klonipin 1mg twice daily added Continue ICU care Continue Mechanical ventilation, wean as able Propofol on board, wean as able Monitor mental status for any improvement Monitor blood pressure, support as required IV Abx for possible PNA as needed CT head completed, cerebral edema noted, renal failure and therefore hypertonic saline not pursued EEG completed, awaiting report Critical Care Time 35 mins
[2017-07-09] MEDS: CEFTRIAXONE 2 GM/100 ML BAG IVPB SCH (10:55)
--- NOTE | 2017-07-09 11:12 | PN ---
Progress Note (short form) - Note Progress Note: Progress Note: CC: SOB/cardiac arrest. s: + fever. remains intubated/sedated Current Medications Generic Name Dose Route Start Last Admin Trade Name Freq PRN Reason Stop Dose Admin Albuterol Sulfate 1 amp 07/05/17 06:15 07/09/17 05:00 Ventolin 0.083% Nebulizer Soln - NEB 1 amp Q4H PRN Administration SHORT OF BREATH/WHEEZING Clonazepam 1 mg 07/06/17 10:19 Klonopin - PO BID PRN Twitching Heparin Sodium (Porcine) 5,000 unit 07/08/17 15:30 07/09/17 06:18 Heparin - SQ 5,000 unit TID PAULINE Administration Propofol 1,000,000 mcg in 100 mls @ 2.858 mls/hr 07/05/17 02:15 07/09/17 07: 51 Diprivan - IVPB 60 mcg/kg/min TITR PAULINE 34.291 mls/hr Protocol Administration 5 MCG/KG/MIN Fentanyl 500 mcg/ Dextrose 100 mls @ 20 mls/hr 07/05/17 06:15 07/09/17 06:20 IVPB Not Given TITR PAULINE 100 MCG/HR Metronidazole 500 mg in 100 mls @ 100 mls/hr 07/08/17 10:00 07/09/17 09:31 Flagyl 500mg Premixed Ivpb - IVPB 100 mls/hr Q8H-IV PAULINE Administration Ceftriaxone Sodium 2 gm in 100 mls @ 200 mls/hr 07/09/17 09:14 07/09/17 10:55 Rocephin 2gm Ivpb (Pre-Docked) IVPB 200 mls/hr DAILY PAULINE Administration Insulin Aspart 1 vial 07/07/17 14:30 07/09/17 06:18 Novolog Vial Sliding Scale - SQ Not Given Q4HPO PAULINE Protocol Metoprolol Tartrate 25 mg 07/07/17 15:30 07/09/17 09:31 Lopressor - PO 25 mg BID PAULINE Administration Vital Signs Temp 100.4 F H 07/09/17 06:00 Pulse 81 07/09/17 06:00 Resp 28 H 07/09/17 09:19 BP 146/68 07/09/17 09:10 Pulse Ox 100 07/08/17 20:02 Intake & Output 1107/08/17 07/09/17 11:59 23:59 11:59 Intake Total 1092.8 1325 752.8 Output Total 800 1600 800 Balance 292.8 -275 -47.2 Weight 211 lb 3 oz 209 lb 4 oz Intake: IV 652.8 620 652.8 DIPRIVAN - 1,000,000 mcg 412.8 385 412.8 In 100 ml @ 5 MCG/KG/MIN 2.858 mls/hr IVPB TITR PAULINE Rx#:[id number] fentanyl 240 235 240 IVPB 150 545 100 Oral 140 Tube Feeding 60 Tube Irrigant 150 100 0 Output: Gastric Drainage 400 300 200 Urine 400 1300 600 Rocha 400 1300 600 Other: Voiding Method Indwelling Catheter Indwelling Catheter Bowel Movement Yes Weight Measurement Method [facility] Constitutional: Yes: Well Nourished, No Distress, intubated, sedated. Eyes: No: Sclera Icterus Respiratory: Yes: mechanical breath sounds (anteriorly (pt intubated)). No: Accessory Muscle Use, Rales, Wheezes Gastrointestinal: Yes: Normal Bowel Sounds. No: Distention, Hepatomegaly, Palpable Mass, Tenderness Cardiovascular: Yes: tachcyardic, Regular Rate and Rhythm JVD: No Heart Sounds: Yes: S1, S2. No: Gallop Murmur: No: Systolic Murmur, Diastolic Murmurs) Extremities: No: Cool (feet), Cyanosis Edema: No Integumentary: No: Jaundice Neurological: No: sedated Psychiatric: No: Agitated - Other Data Labs, Other Data: Laboratory Last Values WBC 20.7 K/mm3 (4.0-10.0) H 07/09/17 05:10 RBC 3.24 M/mm3 (4.00-5.60) L 07/09/17 05:10 Hgb 9.1 GM/dL (11.7-16.9) L 07/09/17 05:10 Hct 26.8 % (35.4-49) L 07/09/17 05:10 MCV 82.8 fl (80-96) 07/09/17 05:10 MCH 28.0 pg (25.7-33.7) 07/09/17 05:10 MCHC 33.8 g/dl (32.0-35.9) 07/09/17 05:10 RDW 17.1 % (11.9-15.9) H 07/09/17 05:10 Plt Count 214 K/MM3 (134-434) 07/09/17 05:10 MPV 8.7 fl (7.5-11.1) 07/09/17 05:10 Total Counted 100 07/08/17 05:15 Neutrophils % 70.5 % (42.8-82.8) D 07/09/17 05:10 Neutrophils % (Manual) 77.0 % (42.8-82.8) 07/08/17 05:15 Band Neutrophils % 1.0 % 07/08/17 05:15 Lymphocytes % 17.6 % (8-40) D 07/09/17 05:10 Lymphocytes % (Manual) 17.0 % (8-40) D 07/08/17 05:15 Monocytes % 10.4 % (3.8-10.2) H D 07/09/17 05:10 Monocytes % (Manual) 5 % (3.8-10.2) 07/08/17 05:15 Eosinophils % 1.0 % (0-4.5) D 07/09/17 05:10 Eosinophils % (Manual) 0.0 % (0-4.5) D 07/07/17 05:00 Basophils % 0.5 % (0-2.0) 07/09/17 05:10 Basophils % (Manual) 0.0 % (0-2.0) 07/07/17 05:00 Manual Slide Review No Result Required. 07/06/17 05:00 Platelet Estimate Adequate 07/07/17 05:00 Platelet Comment No clumping noted 07/07/17 05:00 PT with INR 13.30 SEC (9.98-11.88) H 07/06/17 05:00 INR 1.18 (0.82-1.09) H 07/06/17 05:00 PTT (Actin FS) 20.4 SECONDS (26.9-34.4) L 07/05/17 00:45 Anticoagulation Therapy Y 07/05/17 21:00 Puncture Site Arterial line 07/08/17 09:49 Patient Temperature 101.3 07/08/17 09:49 ABG pH 7.41 (7.35-7.45) 07/08/17 09:49 ABG pCO2 at Pt Temp 21.4 mmHg (35-45) L 07/08/17 09:49 ABG pO2 at Pt Temp 151.0 mmHg (80-100) H* 07/08/17 09:49 ABG HCO3 13.3 meq/L (22-26) L* 07/08/17 09:49 ABG O2 Sat (Measured) 98.8 % (90-98.9) 07/08/17 09:49 ABG O2 Content 13.1 % vol (15-22) L 07/08/17 09:49 ABG Base Excess -9.7 meq/l (-2-2) L 07/08/17 09:49 Sorin Test Positive 07/08/17 09:49 VBG pH 6.98 (7.32-7.42) L* 07/05/17 01:00 POC VBG pCO2 69.6 mmHg (38-52) H* 07/05/17 01:00 POC VBG pO2 49.8 mmHg (28-48) H 07/05/17 01:00 Mixed VBG HCO3 15.6 meq/L (19-25) L 07/05/17 01:00 Carboxyhemoglobin 0.2 gm% (0.5-2.0) L 07/05/17 06:00 Methemoglobin 1.0 % (0.4-1.5) 07/05/17 06:00 [facility] 07[facility]17 09:49 Oxygen Flow Rate 60 07/08/17 09:49 Vent Mode A/c 07/08/17 09:49 Vent Rate 28 res rate 07/08/17 09:49 Mechanical Rate Espirit 07/08/17 09:49 PEEP 8.0 cmH2O 07/08/17 09:49 Pressure Support Vent 500 tidal volume 07/08/17 09:49 Sodium 139 mmol/L (136-145) 07/09/17 05:10 Potassium 3.4 mmol/L (3.5-5.1) L 07/09/17 05:10 Chloride 106 mmol/L (98-107) 07/09/17 05:10 Carbon Dioxide 15 mmol/L (21-32) L 07/09/17 05:10 Anion Gap 18 (8-16) H 07/09/17 05:10 BUN 87 mg/dL (7-18) H 07/09/17 05:10 Creatinine 6.6 mg/dL (0.7-1.3) H 07/09/17 05:10 Creat Clearance w eGFR 8.73 (>60) 07/09/17 05:10 POC Glucometer 201.29874 UNITS (80-120) 07/08/17 22:08 Random Glucose 150 mg/dL (74-106) H D 07/09/17 05:10 Lactic Acid 0.8 mmol/L (0.4-2.0) 07/08/17 06:30 Calcium 6.9 mg/dL (8.5-10.1) L* 07/09/17 05:10 Phosphorus 5.3 mg/dL (2.5-4.9) H 07/07/17 05:00 Magnesium 1.6 mg/dL (1.8-2.4) L 07/07/17 05:00 Total Bilirubin 0.5 mg/dL (0.2-1.0) 07/09/17 05:10 AST 41 U/L (15-37) H D 07/09/17 05:10 ALT 16 U/L (12-78) D 07/09/17 05:10 Alkaline Phosphatase 58 U/L (45-117) 07/09/17 05:10 Creatine Kinase 237 IU/L (39-308) 07/07/17 13:00 Creatine Kinase Index 0.5 % (0.0-5.0) 07/07/17 13:00 CK-MB (CK-2) 1.282 ng/mL (0.5-3.6) 07/07/17 13:00 Troponin I 1.09 ng/ml (0.00-0.05) H* 07/07/17 13:00 B-Natriuretic Peptide 91951.37 pg/ml (5-125) H 07/05/17 00:45 Total Protein 5.9 g/dl (6.4-8.2) L 07/09/17 05:10 Albumin 1.9 g/dl (3.4-5.0) L 07/09/17 05:10 Urine Color Ltyellow 07/05/17 02:10 Urine Appearance Slcloudy 07/05/17 02:10 Urine pH 6.0 (5.0-8.0) 07/05/17 02:10 Ur Specific [place] 1.016 (1.001-1.035) 07/05/17 02:10 Urine Protein 3+ (NEGATIVE) H 07/05/17 02:10 Urine Glucose (UA) 1+ (NEGATIVE) H 07/05/17 02:10 Urine Ketones Negative (NEGATIVE) 07/05/17 02:10 Urine Blood 1+ (NEGATIVE) H 07/05/17 02:10 Urine Nitrite Negative (NEGATIVE) 07/05/17 02:10 Urine Bilirubin Negative (NEGATIVE) 07/05/17 02:10 Urine Urobilinogen Negative mg/dL (0.2-1.0) 07/05/17 02:10 Ur Leukocyte Esterase Negative (NEGATIVE) 07/05/17 02:10 Urine WBC (Auto) 3 /hpf (3-5) 07/05/17 02:10 Urine RBC (Auto) 14 /hpf (0-3) 07/05/17 02:10 Hyaline Casts 1 /lpf 07/05/17 02:10 Urine Mucus Rare 07/05/17 02:10 Ur Random Sodium 57 MMOL/L 07/06/17 14:50 Ur Random Potassium 32.6 MMOL/L 07/06/17 14:50 Ur Random Chloride 43 MMOL/L 07/06/17 14:50 Ur Random Urea Nitrogn 380 mg/dL 07/06/17 14:50 Tobramycin Trough 3.1 ug/ml (0.0-2.0) H* 07/06/17 05:00 Random Vancomycin < 0.800 ug/ml 07/05/17 05:00 Beta-(1,3)-D-Glucan 41 pg/mL (<80) 07/05/17 08:05 tele: sr, 5 beat run nsvt EKG 07/07: sinus tach with pvc's. new difufes TWI. worse in precordial leads. prolonged qtc. cxr 07/09:clear lungs ECG #1: sinus tach, normal axis, +/- long QT (mild); no pathol q waves; borderline ischemic appearing ST depressions inferior leads and V6 (no old but this was not reported on 12/24 office ecg) #2: NSR, STs resolving ECG 07/07: MPI 05/26: no ischemia, EF 33% (global echo 06/2017: nl lv size. LV fn mod-sev reduced (global). nl rv size/fn. 1+ mac/mr/tr. rvsp 30-40. + pleural effusion. Echo 05/26 (): mod LVE, mild global LV hypo; nl RV; mild LAE; mild MR Echo 12/24: nl LV and RV, nl valves est cct 35 mins a/p: 56 yo smoker with h/o mild lv dysfunction, htn, hl, ckd, hiv, dm p/w progressive sob and subsequent PEA arrest with EMS (s/p resuscitation). acute hypoxic resp failure, acute on chronic syst CHF: -cxr improved today -resting echo 05/26 with mild LV dysfunction, ? worse (nuclear estimated EF 33%) , ? underlying CAD with balanced ischemia on nuclear--of note, ECG initially here with borderline ST changes for ischemia. ? diast chf component mixed in. -trop mildly elevated, now trending down. likely from demand. -received lasix drip 07/05 and 40mg iv 07/06 but now stopped due to worsening cr, cont prn for hypoxia -repeat echo here with worsened systolic function. consider invasive ischemia eval (cath) prior to hosp discharge depending in clinical course -cont beta blockade. -limit qtc prolonging drugs when possible as qtc slightly long on ecg cardiac arrest (PEA): -sec to acute chf/hypoxia most likely -telem with stable rhythm (sinus) -cont monitoring, optimization of chf and acid-base status, as doing - neuro note reviewed: Pt was resuscitated per ACLS protocol for approximately 5 minutes according to note, receiving epi x 2, bicarb x 2. Per report, exam c/ w anoxic brain injury with only minimal brainstem activity at present - poor prognosis. FLORECITA on CKD: -baseline creat here 2.8 in 05/26. initially 2.4 on presentation to ER -suspect hypoperfusion/atn as cause, cr still elevated but stable today from yesterday -holding lasix -renal following HTN: -cont bb HIV/Hep C: -per ID team + tobacco - cessation counseling if patient's clinical condition improves.
[2017-07-09] MEDS ORDERED: LABETALOL HCL 5 MG/1 ML (100MG/20 ML VIAL) IVPUSH ONE (11:39)
[2017-07-09] MEDS: LABETALOL HCL 5 MG/1 ML (100MG/20 ML VIAL) IVPUSH PRN (11:47)
[2017-07-09] MEDS: DEXAMETHASONE SOD PHOSPHATE 10 MG/1 ML VIAL IVPUSH SCH ×3 (12:10→21:26)
--- NOTE | 2017-07-09 12:41 | PN ---
Progress Note, Physician History of Present Illness: Pt seen and examined at bedside. He remains in the ICU. Pt remains intubated. His family is at bedside and care was discussed with them. - Current Medication List Current Medications: Active Medications Albuterol Sulfate (Ventolin 0.083% Nebulizer Soln -) 1 amp NEB Q4H PRN PRN Reason: SHORT OF BREATH/WHEEZING Last Admin: 07/09/17 05:00 Dose: 1 amp Clonazepam (Klonopin -) 1 mg PO BID PRN PRN Reason: Twitching Dexamethasone Sodium Phosphate (Decadron Injection -) 10 mg IVPUSH Q6H-IV PAULINE Last Admin: 07/09/17 12:10 Dose: 10 mg Heparin Sodium (Porcine) (Heparin -) 5,000 unit SQ TID PAULINE Last Admin: 07/09/17 06:18 Dose: 5,000 unit Propofol (Diprivan -) 1,000,000 mcg in 100 mls @ 2.858 mls/hr IVPB TITR PAULINE; 5 MCG/KG/MIN PRN Reason: Protocol Last Admin: 07/09/17 07:51 Dose: 60 mcg/kg/min, 34.291 mls/hr Fentanyl 500 mcg/ Dextrose 100 mls @ 20 mls/hr IVPB TITR PAULINE PRN Reason: 100 MCG/HR Last Admin: 07/09/17 06:20 Dose: Not Given Metronidazole (Flagyl 500mg Premixed Ivpb -) 500 mg in 100 mls @ 100 mls/hr IVPB Q8H-IV PAULINE Last Admin: 07/09/17 09:31 Dose: 100 mls/hr Ceftriaxone Sodium (Rocephin 2gm Ivpb (Pre-Docked)) 2 gm in 100 mls @ 200 mls/ hr IVPB DAILY PAULINE Last Admin: 07/09/17 10:55 Dose: 200 mls/hr Insulin Aspart (Novolog Vial Sliding Scale -) 1 vial SQ Q4HPO PAULINE PRN Reason: Protocol Last Admin: 07/09/17 11:19 Dose: 4 units Labetalol HCl (Normodyne Injection -) 10 mg IVPUSH Q4H PRN PRN Reason: HYPERTENSION Last Admin: 07/09/17 11:47 Dose: 10 mg Metoprolol Tartrate (Lopressor -) 25 mg PO BID PAULINE Last Admin: 07/09/17 09:31 Dose: 25 mg - Objective Vital Signs: Vital Signs Temperature 99.1 F 07/09/17 11:50 Pulse Rate 95 H 07/09/17 11:50 Respiratory Rate 30 H 07/09/17 11:50 Blood Pressure 176/91 07/09/17 11:50 O2 Sat by Pulse Oximetry (%) 100 07/08/17 20:02 Constitutional: Yes: Calm HENT: Yes: Atraumatic Cardiovascular: Yes: S1, S2 Respiratory: Yes: Mechanically Ventilated Gastrointestinal: Yes: Soft Genitourinary: Yes: Rocha Present Musculoskeletal: Yes: Muscle Weakness Edema: Yes Edema: LLE: Trace, RLE: Trace Neurological: Yes: Lethargy Labs: CBC, BMP 07/09/17 05:10 07/09/17 05:10 INR, PTT INR 1.18 (0.82-1.09) H 07/06/17 05:00 - ....Imaging Chest X-ray: Report Reviewed Problem List - Problems (1) FLORECITA (acute kidney injury) Code(s): N17.9 - ACUTE KIDNEY FAILURE, UNSPECIFIED (2) CHF (congestive heart failure) Code(s): I50.9 - HEART FAILURE, UNSPECIFIED Qualifiers: Congestive heart failure type: unspecified congestive heart failure type Congestive heart failure chronicity: unspecified congestive heart failure chronicity Qualified Code(s): I50.9 - Heart failure, unspecified (3) Cardiopulmonary arrest with successful resuscitation Code(s): I46.9 - CARDIAC ARREST, CAUSE UNSPECIFIED (4) Chronic kidney disease Code(s): N18.9 - CHRONIC KIDNEY DISEASE, UNSPECIFIED (5) Hypertension Code(s): I10 - ESSENTIAL (PRIMARY) HYPERTENSION (6) Chronic kidney disease Code(s): N18.9 - CHRONIC KIDNEY DISEASE, UNSPECIFIED Assessment/Plan Current Medications Generic Name Dose Route Start Last Admin Trade Name Freq PRN Reason Stop Dose Admin Albuterol Sulfate 1 amp 07/05/17 06:15 07/09/17 05:00 Ventolin 0.083% Nebulizer Soln - NEB 1 amp Q4H PRN Administration SHORT OF BREATH/WHEEZING Clonazepam 1 mg 07/06/17 10:19 Klonopin - PO BID PRN Twitching Dexamethasone Sodium Phosphate 10 mg 07/09/17 11:45 07/09/17 12:10 Decadron Injection - IVPUSH 10 mg Q6H-IV PAULINE Administration Heparin Sodium (Porcine) 5,000 unit 07/08/17 15:30 07/09/17 06:18 Heparin - SQ 5,000 unit TID PAULINE Administration Propofol 1,000,000 mcg in 100 mls @ 2.858 mls/hr 07/05/17 02:15 07/09/17 07: 51 Diprivan - IVPB 60 mcg/kg/min TITR PAULINE 34.291 mls/hr Protocol Administration 5 MCG/KG/MIN Fentanyl 500 mcg/ Dextrose 100 mls @ 20 mls/hr 07/05/17 06:15 07/09/17 06:20 IVPB Not Given TITR PAULINE 100 MCG/HR Metronidazole 500 mg in 100 mls @ 100 mls/hr 07/08/17 10:00 07/09/17 09:31 Flagyl 500mg Premixed Ivpb - IVPB 100 mls/hr Q8H-IV PAULINE Administration Ceftriaxone Sodium 2 gm in 100 mls @ 200 mls/hr 07/09/17 09:14 07/09/17 10:55 Rocephin 2gm Ivpb (Pre-Docked) IVPB 200 mls/hr DAILY PAULINE Administration Insulin Aspart 1 vial 07/07/17 14:30 07/09/17 11:19 Novolog Vial Sliding Scale - SQ 4 units Q4HPO PAULINE Administration Protocol Labetalol HCl 10 mg 07/09/17 11:12 07/09/17 11:47 Normodyne Injection - IVPUSH 10 mg Q4H PRN Administration HYPERTENSION Metoprolol Tartrate 25 mg 07/07/17 15:30 07/09/17 09:31 Lopressor - PO 25 mg BID PAULINE Administration Impression 1. FLORECITA 2. CKD 3. cardiac arrest 4. CHF 5. HIV 6. hypomagnesemia 7. anoxic brain injury Plan - discussed care with family at length - creatinine appears to have plateaued, cont to trend - no acute indication for hd at this time - I did discussed dialysis with family and they are undecided - cont vent support - can hold off lasix today - discussed with critical care team - neuro follow up - cont to monitor urine output - prognosis guarded
[2017-07-09] MEDS ORDERED: CALCIUM GLUCONATE 10% - 1,000 MG/10 ML VIAL IVPB ONE (13:08)
--- NOTE | 2017-07-09 13:10 | PN ---
Physical Exam: SUBJECTIVE: Patient seen and examined at bedside. Pt intubated and sedated. Febrile. Hypertensive. OBJECTIVE: Vital Signs Period Temp Pulse Resp BP Sys/[place] Pulse Ox Last 24 Hr 99.1 F-102.2 F 81-102 28-44 116-176/50-91 97-100 No change. GENERAL: Intubated and sedated. HEAD: Normal with no signs of trauma. EYES: sclera anicteric, conjunctiva clear. No ptosis. ENT: oropharynx clear without exudates, moist mucous membranes. NECK: Trachea midline, full range of motion, supple. LUNGS: Breath sounds equal, clear to auscultation bilaterally, no wheezes, no crackles, no accessory muscle use. HEART: Regular rate and rhythm, S1, S2 without murmur, rub or gallop. ABDOMEN: Soft, nondistended, normoactive bowel sounds, no guarding, no rebound, no hepatosplenomegaly, no masses. EXTREMITIES: 2+ pulses, warm, well-perfused, no edema. NEUROLOGICAL: Intubated and sedated PSYCH: Intubated and sedated SKIN: Warm, dry, normal turgor, no rashes or lesions noted Laboratory Results - last 24 hr 07/08/17 07/08/17 07/09/17 17:38 22:08 02:48 WBC RBC Hgb Hct MCV MCH MCHC RDW Plt Count MPV Neutrophils % Lymphocytes % Monocytes % Eosinophils % Basophils % Sodium Potassium Chloride Carbon Dioxide Anion Gap BUN Creatinine Creat Clearance w eGFR POC Glucometer 204.07081 201.85759 329.73340 Random Glucose Calcium Total Bilirubin AST ALT Alkaline Phosphatase Total Protein Albumin 07/09/17 07/09/17 07/09/17 05:10 05:10 05:32 WBC 20.7 H RBC 3.24 L Hgb 9.1 L Hct 26.8 L MCV 82.8 MCH 28.0 MCHC 33.8 RDW 17.1 H Plt Count 214 MPV 8.7 Neutrophils % 70.5 D Lymphocytes % 17.6 D Monocytes % 10.4 H D Eosinophils % 1.0 D Basophils % 0.5 Sodium 139 Potassium 3.4 L Chloride 106 Carbon Dioxide 15 L Anion Gap 18 H BUN 87 H Creatinine 6.6 H Creat Clearance w eGFR 8.73 POC Glucometer 132.20575 Random Glucose 150 H D Calcium 6.9 L* Total Bilirubin 0.5 AST 41 H D ALT 16 D Alkaline Phosphatase 58 Total Protein 5.9 L Albumin 1.9 L 07/09/17 11:18 WBC RBC Hgb Hct MCV MCH MCHC RDW Plt Count MPV Neutrophils % Lymphocytes % Monocytes % Eosinophils % Basophils % Sodium Potassium Chloride Carbon Dioxide Anion Gap BUN Creatinine Creat Clearance w eGFR POC Glucometer 212.81692 Random Glucose Calcium Total Bilirubin AST ALT Alkaline Phosphatase Total Protein Albumin Active Medications Generic Name Dose Route Start Last Admin Trade Name Freq PRN Reason Stop Dose Admin Albuterol Sulfate 1 amp 07/05/17 06:15 07/09/17 05:00 Ventolin 0.083% Nebulizer Soln - NEB 1 amp Q4H PRN Administration SHORT OF BREATH/WHEEZING Clonazepam 1 mg 07/06/17 10:19 Klonopin - PO BID PRN Twitching Dexamethasone Sodium Phosphate 10 mg 07/09/17 11:45 07/09/17 12:10 Decadron Injection - IVPUSH 10 mg Q6H-IV PAULINE Administration Heparin Sodium (Porcine) 5,000 unit 07/08/17 15:30 07/09/17 06:18 Heparin - SQ 5,000 unit TID PAULINE Administration Propofol 1,000,000 mcg in 100 mls @ 2.858 mls/hr 07/05/17 02:15 07/09/17 07: 51 Diprivan - IVPB 60 mcg/kg/min TITR PAULINE 34.291 mls/hr Protocol Administration 5 MCG/KG/MIN Fentanyl 500 mcg/ Dextrose 100 mls @ 20 mls/hr 07/05/17 06:15 07/09/17 06:20 IVPB Not Given TITR PAULINE 100 MCG/HR Metronidazole 500 mg in 100 mls @ 100 mls/hr 07/08/17 10:00 07/09/17 09:31 Flagyl 500mg Premixed Ivpb - IVPB 100 mls/hr Q8H-IV PAULINE Administration Ceftriaxone Sodium 2 gm in 100 mls @ 200 mls/hr 07/09/17 09:14 07/09/17 10:55 Rocephin 2gm Ivpb (Pre-Docked) IVPB 200 mls/hr DAILY PAULINE Administration Insulin Aspart 1 vial 07/07/17 14:30 07/09/17 11:19 Novolog Vial Sliding Scale - SQ 4 units Q4HPO PAULINE Administration Protocol Labetalol HCl 10 mg 07/09/17 11:12 07/09/17 11:47 Normodyne Injection - IVPUSH 10 mg Q4H PRN Administration HYPERTENSION Metoprolol Tartrate 25 mg 07/07/17 15:30 07/09/17 09:31 Lopressor - PO 25 mg BID PALUINE Administration ASSESSMENT/PLAN: Pt is a 56 M w/ PMH HTN, HL, DM, CKD, and HIV on HAART who presented to ED with cardiopulmonary arrest. Pt is now intubated and sedated. Prior to arriving at the ED, pt had been complaining of wheezing and SOB. On arriving in ED, pt was in arrest and was coded for 5 min. #Cardio -Cardiopulmonary arrest -pt was coded in ED for at least 5 min -intubated and sedated. Weaning as tolerated -Propofol -Fentanyl -Pt was placed on hypothermia protocol. Passively rewarming completed -Echo showed moderate-severe LV dysfunction -Tn peak at 1.33. Per Cardio, Tn is combination of demand & sepsis -holding Lasix at this time #Neuro -Anoxic brain injury -Neuro on board -Pt was down and coded for several minutes -now exhibiting myoclonic jerks -klonopin per neuro -per Radiologist Dr. Estrada, Head CT revealed loss of balderas/white junction, and sulcal effacement, but no sign of herniation. -Decadron 10 -EEG read is pending #ID -HIV positive -pt sees Dr. Vital as outpt -has been resistant to several medications -HIV meds on hold for now -Leukocytosis -WBC 26 -> 30 -> 26 -> 20 -cannot r/o infection at this time -Pt on Flagyl/Rocephin per ID #Nephro -FLORECITA on CKD -Mobile Ui/Ux [employer]er 3.7 -> 5.0 -> 6.6 -Nephro on board -FLORECITA likely worsened by arrest -No need for HD at this time -Hold lasix for now #Endocrine -DM -ISS #FEN -on NS -Hypokalemia. Hypocalcemia. Repleting -Intubated sedated #PPx -Hep SubQ #Dispo -admitted to ICU Mukesh Niño MD PGY-1, ICU Visit type - Emergency Visit Emergency Visit: No - New Patient This patient is new to me today: No - Critical Care Critical Care patient: Yes Total Critical Care Time (in minutes): 40 Critical Care Statement: The care of this patient involved high complexity decision making to prevent further life threatening deterioration of the patient 's condition and/or to evaluate & treat vital organ system(s) failure or risk of failure. - Discharge Referral Referred to [facility] No
--- NOTE | 2017-07-09 14:40 | PN ---
Teaching Attending Note Name of Resident: Mukesh Niño ATTENDING PHYSICIAN STATEMENT I saw and evaluated the patient. I reviewed the resident's note and discussed the case with the resident. I agree with the resident's findings and plan as documented. SUBJECTIVE: Patient seen and examined in the ICU. Remains intubated and sedated on propofol. AC Mode of vent. No pressors. (+) Gag reflex and minimal pupillary response Intake & Output 07/06/17 07/07/17 07/08/17 07/09/17 23:59 23:59 23:59 23:59 Intake Total 1345 784.4 2417.8 752.8 Output Total 1850 1100 2400 1750 Balance -505 -315.6 17.8 -997.2 Weight 210 lb 5 oz 211 lb 6.773 oz 211 lb 3 oz 209 lb 4 oz Last Vital Signs Temp Pulse Resp BP Pulse Ox 99.2 F 75 28 H 130/64 100 07/09/17 14:00 07/09/17 14:00 07/09/17 14:00 07/09/17 14:00 07/09/17 10:00 Active Medications Albuterol Sulfate (Ventolin 0.083% Nebulizer Soln -) 1 amp NEB Q4H PRN PRN Reason: SHORT OF BREATH/WHEEZING Last Admin: 07/09/17 05:00 Dose: 1 amp Clonazepam (Klonopin -) 1 mg PO BID PRN PRN Reason: Twitching Dexamethasone Sodium Phosphate (Decadron Injection -) 10 mg IVPUSH Q6H-IV [facility] Last Admin: 07/09/17 12:10 Dose: 10 mg Heparin Sodium (Porcine) (Heparin -) 5,000 unit SQ TID [facility] Last Admin: 07/09/17 13:46 Dose: 5,000 unit Propofol (Diprivan -) 1,000,000 mcg in 100 mls @ 2.858 mls/hr IVPB TITR [facility]; 5 MCG/KG/MIN PRN Reason: Protocol Last Admin: 07/09/17 12:45 Dose: 60 mcg/kg/min, 34.291 mls/hr Fentanyl 500 mcg/ Dextrose 100 mls @ 20 mls/hr IVPB TITR [facility] PRN Reason: 100 MCG/HR Last Admin: 07/09/17 06:20 Dose: Not Given Metronidazole (Flagyl 500mg Premixed Ivpb -) 500 mg in 100 mls @ 100 mls/hr IVPB Q8H-IV [facility] Last Admin: 07/09/17 09:31 Dose: 100 mls/hr Ceftriaxone Sodium (Rocephin 2gm Ivpb (Pre-Docked)) 2 gm in 100 mls @ 200 mls/ hr IVPB DAILY [facility] Last Admin: 07/09/17 10:55 Dose: 200 mls/hr Potassium Chloride (Potassium Chloride 10 Meq Premix Ivpb -) 10 meq in 100 mls @ 100 mls/hr IVPB Q60M [facility] Stop: 07/09/17 15:14 Insulin Aspart (Novolog Vial Sliding Scale -) 1 vial SQ Q4HPO [facility] PRN Reason: Protocol Last Admin: 07/09/17 11:19 Dose: 4 units Labetalol HCl (Normodyne Injection -) 10 mg IVPUSH Q4H PRN PRN Reason: HYPERTENSION Last Admin: 07/09/17 11:47 Dose: 10 mg Metoprolol Tartrate (Lopressor -) 25 mg PO BID [facility] Last Admin: 07/09/17 09:31 Dose: 25 mg Constitutional: Yes: Intubated, minimally responsive Eyes: Yes: Pupils constricted: minimal response, Upward gaze HENT: Yes: WNL, Atraumatic, Normocephalic Neck: Yes: WNL, Supple, Trachea Midline Cardiovascular: Yes: Regular Rate and Rhythm Respiratory: Yes: Scattered bilateral rhonchi, Mechanically Ventilated Gastrointestinal: Yes: Abdomen, Obese, (+) Bowel Sounds ...Rectal Exam: Yes: Deferred Renal/: Yes: Rocha Present Breast(s): Yes: WNL Extremities: Yes: Cool Edema: Yes Edema: LLE: 1+, RLE: 1+ Peripheral Pulses WNL: Yes Integumentary: Yes: WNL Neurological: Yes: Nonresponsive ...Motor Strength: WNL Psychiatric: Yes: WNL Labs: Laboratory Results - last 24 hr 07/08/17 07/08/17 07/09/17 17:38 22:08 02:48 WBC RBC Hgb Hct MCV MCH MCHC RDW Plt Count MPV Neutrophils % Lymphocytes % Monocytes % Eosinophils % Basophils % Sodium Potassium Chloride Carbon Dioxide Anion Gap BUN Creatinine Creat Clearance w eGFR POC Glucometer 204.97945 201.50848 329.29794 Random Glucose Calcium Total Bilirubin AST ALT Alkaline Phosphatase Total Protein Albumin 07/09/17 07/09/17 07/09/17 05:10 05:10 05:32 WBC 20.7 H RBC 3.24 L Hgb 9.1 L Hct 26.8 L MCV 82.8 MCH 28.0 MCHC 33.8 RDW 17.1 H Plt Count 214 MPV 8.7 Neutrophils % 70.5 D Lymphocytes % 17.6 D Monocytes % 10.4 H D Eosinophils % 1.0 D Basophils % 0.5 Sodium 139 Potassium 3.4 L Chloride 106 Carbon Dioxide 15 L Anion Gap 18 H BUN 87 H Creatinine 6.6 H Creat Clearance w eGFR 8.73 POC Glucometer 132.67946 Random Glucose 150 H D Calcium 6.9 L* Total Bilirubin 0.5 AST 41 H D ALT 16 D Alkaline Phosphatase 58 Total Protein 5.9 L Albumin 1.9 L 07/09/17 11:18 WBC RBC Hgb Hct MCV MCH MCHC RDW Plt Count MPV Neutrophils % Lymphocytes % Monocytes % Eosinophils % Basophils % Sodium Potassium Chloride Carbon Dioxide Anion Gap BUN Creatinine Creat Clearance w eGFR POC Glucometer 212.75198 Random Glucose Calcium Total Bilirubin AST ALT Alkaline Phosphatase Total Protein Albumin Problem List - Problems (1) CHF (congestive heart failure) Code(s): I50.9 - HEART FAILURE, UNSPECIFIED Qualifiers: Congestive heart failure type: unspecified congestive heart failure type Congestive heart failure chronicity: unspecified congestive heart failure chronicity Qualified Code(s): I50.9 - Heart failure, unspecified (2) Cardiopulmonary arrest with successful resuscitation Code(s): I46.9 - CARDIAC ARREST, CAUSE UNSPECIFIED (3) Pneumonia Code(s): J18.9 - PNEUMONIA, UNSPECIFIED ORGANISM (4) Respiratory failure Code(s): J96.90 - RESPIRATORY FAILURE, UNSP, UNSP W HYPOXIA OR HYPERCAPNIA Assessment/Plan ASSESS: This is a 56 YOM w/ HTN, HL, DM, CKD, & HIV/AIDS on HAART admitted now w / resp fail s/p cardiac arrest m/l 2/2 flash pulm edema +/- pna. PLAN: Taper FiO2 as tolerated Full sedation vacation to assess mental status BD TX ABX per ID Monitor off Lasix SCDs Unfortunately overall outcome appears poor Dr Glez Critical care time spent in reviewing chart, evaluating patient and formulating plan 40 minutes.
[2017-07-09] MEDS ORDERED: PROPOFOL 1,000,000 MCG/100 ML VIAL ONE (19:39)
[2017-07-09] MEDS ORDERED: HEMOQUE TEST 1 EACH EACH ONE (21:43)
--- NOTE | 2017-07-09 23:28 | PN ---
Progress Note, Physician - Current Medication List Current Medications: Active Medications Albuterol Sulfate (Ventolin 0.083% Nebulizer Soln -) 1 amp NEB Q4H PRN PRN Reason: SHORT OF BREATH/WHEEZING Last Admin: 07/09/17 05:00 Dose: 1 amp Clonazepam (Klonopin -) 1 mg PO BID PRN PRN Reason: Twitching Dexamethasone Sodium Phosphate (Decadron Injection -) 10 mg IVPUSH Q6H-IV [facility] Last Admin: 07/09/17 21:26 Dose: 10 mg Heparin Sodium (Porcine) (Heparin -) 5,000 unit SQ TID [facility] Last Admin: 07/09/17 21:26 Dose: 5,000 unit Propofol (Diprivan -) 1,000,000 mcg in 100 mls @ 2.858 mls/hr IVPB TITR [facility]; 5 MCG/KG/MIN PRN Reason: Protocol Last Admin: 07/09/17 17:41 Dose: 60 mcg/kg/min, 34.291 mls/hr Fentanyl 500 mcg/ Dextrose 100 mls @ 20 mls/hr IVPB TITR PA[facility] PRN Reason: 100 MCG/HR Last Admin: 07/09/17 13:45 Dose: 20 mls/hr Metronidazole (Flagyl 500mg Premixed Ivpb -) 500 mg in 100 mls @ 100 mls/hr IVPB Q8H-IV [facility] Last Admin: 07/09/17 17:41 Dose: 100 mls/hr Ceftriaxone Sodium (Rocephin 2gm Ivpb (Pre-Docked)) 2 gm in 100 mls @ 200 mls/ hr IVPB DAILY [facility] Last Admin: 07/09/17 10:55 Dose: 200 mls/hr Insulin Aspart (Novolog Vial Sliding Scale -) 1 vial SQ Q4HPO [facility] PRN Reason: Protocol Last Admin: 07/09/17 21:51 Dose: 10 units Labetalol HCl (Normodyne Injection -) 10 mg IVPUSH Q4H PRN PRN Reason: HYPERTENSION Last Admin: 07/09/17 11:47 Dose: 10 mg Metoprolol Tartrate (Lopressor -) 25 mg PO BID [facility] Last Admin: 07/09/17 21:26 Dose: 25 mg - Objective Vital Signs: Vital Signs Temperature 99.7 F H 07/09/17 22:00 Pulse Rate 81 07/09/17 22:00 Respiratory Rate 28 H 07/09/17 22:00 Blood Pressure 139/66 07/09/17 22:00 O2 Sat by Pulse Oximetry (%) 100 07/09/17 10:00 Labs: CBC, BMP 07/09/17 05:10 07/09/17 05:10 INR, PTT INR 1.18 (0.82-1.09) H 07/06/17 05:00 Problem List - Problems (1) Respiratory failure Code(s): J96.90 - RESPIRATORY FAILURE, UNSP, UNSP W HYPOXIA OR HYPERCAPNIA (2) Cardiopulmonary arrest with successful resuscitation Code(s): I46.9 - CARDIAC ARREST, CAUSE UNSPECIFIED (3) Acute on chronic diastolic CHF (congestive heart failure) Code(s): I50.33 - ACUTE ON CHRONIC DIASTOLIC (CONGESTIVE) HEART FAILURE (4) Uncontrolled diabetes mellitus Code(s): E11.65 - TYPE 2 DIABETES MELLITUS WITH HYPERGLYCEMIA
[2017-07-10] MEDS ORDERED: fentaNYL CITRATE 250 MCG/5 ML VIAL ONE ×3 (00:49→10:09)
[2017-07-10] MEDS ORDERED: PROPOFOL 1,000,000 MCG/100 ML VIAL ONE ×4 (00:49→16:19)
[2017-07-10] MEDS: METRONIDAZOLE 500 MG PREMIXED 500 MG/100 ML MG IVPB SCH ×3 (01:21→17:02)
[2017-07-10] MEDS: INSULIN SLIDING SCALE (NOVOLOG) 1 VIAL SQ SCH ×6 (01:30→22:52)
[2017-07-10] MEDS: PROPOFOL 1,000,000 MCG/100 ML VIAL IVPB SCH ×7 (02:19→23:15)
[2017-07-10] MEDS: DEXAMETHASONE SOD PHOSPHATE 10 MG/1 ML VIAL IVPUSH SCH ×4 (02:20→20:07)
[2017-07-10 06:22] LABS: BASO % 0.2 % (0-2.0); MCH 27.5 pg (25.7-33.7); MCHC 33.2 g/dl (32.0-35.9); MEAN CELL VOLUME 82.8 fl (80-96); MEAN PLT VOLUME 8.9 fl (7.5-11.1); NEUT % 89.2 % (42.8-82.8); PLATELET COUNT 226 K/MM3 (134-434); RDW 17.1 % (11.9-15.9); WHITE BLOOD COUNT 15.9 K/mm3 (4.0-10.0)
[2017-07-10] MEDS: HEPARIN NA (PORCINE) 5,000 UNITS/ML 1ML VIAL SQ SCH ×2 (06:34→13:43)
[2017-07-10] MEDS: FENTANYL INJECTION 500 MCG in DEXTROSE 5%-WATER - 90 ML IVPB SCH (06:35)
[2017-07-10 06:49] LABS: ALBUMIN 1.8 g/dl (3.4-5.0); ANION GAP 16 (8-16); BILIRUBIN,TOTAL 0.4 mg/dL (0.2-1.0); CO2 14 mmol/L (21-32); CREATININE 5.9 mg/dL (0.7-1.3); GLUCOSE,RANDOM 289 mg/dL (74-106); SGOT/AST 27 U/L (15-37); SGPT/ALT 14 U/L (12-78)
[2017-07-10 06:50] LABS: ALK PHOS 53 U/L (45-117)
--- NOTE | 2017-07-10 07:57 | PN ---
Progress Note, Physician Chief Complaint: ID Per nursing staff become agitated when sedation off. Vent dependent Ceftriaxone - Current Medication List Current Medications: Active Medications Clonazepam (Klonopin -) 1 mg PO BID PRN PRN Reason: Twitching Dexamethasone Sodium Phosphate (Decadron Injection -) 10 mg IVPUSH Q6H-IV [facility] Last Admin: 07/10/17 02:20 Dose: 10 mg Heparin Sodium (Porcine) (Heparin -) 5,000 unit SQ TID [facility] Last Admin: 07/10/17 06:34 Dose: 5,000 unit Propofol (Diprivan -) 1,000,000 mcg in 100 mls @ 2.858 mls/hr IVPB TITR PAULINE; 5 MCG/KG/MIN PRN Reason: Protocol Last Admin: 07/10/17 02:19 Dose: 50 mcg/kg/min, 28.576 mls/hr Fentanyl 500 mcg/ Dextrose 100 mls @ 20 mls/hr IVPB TITR PA[facility] PRN Reason: 100 MCG/HR Last Admin: 07/10/17 06:35 Dose: 20 mls/hr Metronidazole (Flagyl 500mg Premixed Ivpb -) 500 mg in 100 mls @ 100 mls/hr IVPB Q8H-IV [facility] Last Admin: 07/10/17 01:21 Dose: 100 mls/hr Ceftriaxone Sodium (Rocephin 2gm Ivpb (Pre-Docked)) 2 gm in 100 mls @ 200 mls/ hr IVPB DAILY [facility] Last Admin: 07/09/17 10:55 Dose: 200 mls/hr Insulin Aspart (Novolog Vial Sliding Scale -) 1 vial SQ Q4HPO [facility] PRN Reason: Protocol Last Admin: 07/10/17 06:34 Dose: 6 units Labetalol HCl (Normodyne Injection -) 10 mg IVPUSH Q4H PRN PRN Reason: HYPERTENSION Last Admin: 07/09/17 11:47 Dose: 10 mg Metoprolol Tartrate (Lopressor -) 25 mg PO BID [facility] Last Admin: 07/09/17 21:26 Dose: 25 mg - Objective Vital Signs: Vital Signs Temperature 99.4 F 07/10/17 06:00 Pulse Rate 96 H 07/10/17 06:00 Respiratory Rate 28 H 07/10/17 06:58 Blood Pressure 169/88 07/10/17 06:00 O2 Sat by Pulse Oximetry (%) 100 07/09/17 21:00 Constitutional: Yes: Other (ON the vent) Cardiovascular: Yes: S1, S2 Respiratory: Yes: WNL, Regular, CTA Bilaterally, Rhonchi Gastrointestinal: Yes: Abdomen, Obese Edema: No Labs: CBC, BMP 07/10/17 05:50 07/10/17 05:50 INR, PTT INR 1.18 (0.82-1.09) H 07/06/17 05:00 Problem List - Problems (1) Cardiopulmonary arrest with successful resuscitation Code(s): I46.9 - CARDIAC ARREST, CAUSE UNSPECIFIED (2) Uncontrolled diabetes mellitus Code(s): E11.65 - TYPE 2 DIABETES MELLITUS WITH HYPERGLYCEMIA (3) Sepsis Code(s): A41.9 - SEPSIS, UNSPECIFIED ORGANISM (4) Chronic kidney disease Code(s): N18.9 - CHRONIC KIDNEY DISEASE, UNSPECIFIED (5) Hypertension Code(s): I10 - ESSENTIAL (PRIMARY) HYPERTENSION Assessment/Plan Laboratory Tests 07/10/17 07/10/17 05:50 05:50 WBC 15.9 H Hgb 7.3 L D Hct 21.9 L D Plt Count 226 Neutrophils % 89.2 H D Lymphocytes % 6.9 L D Monocytes % 3.7 L BUN 94 H Creatinine 5.9 H Creat Clearance w eGFR 9.93 Assessmemt HIV infection off meds Anoxic bran injury Post cardiac arrest Acute and chronic renal failure Respiratory failure Diabetes Hypertension Pneumonia > group B strep Staph aureus Plan From ID standpoint I would treat for few more days though I suspect gram positives could be colonizers Don"t see much on chest aide Vital MD
--- NOTE | 2017-07-10 09:33 | PN ---
Progress Note (short form) - Note Progress Note: Neurology History of Present Illness: Mr. Welch is a 56 y/o man w/ HTN, HL, DM, CKD, HIV on HAART, EF 49.5%, BIBA for SOB. Reportedly had been experiencing worsening SOB & SAMUELS w/ assoc wheezing for several days prior to admission. While in route developed further respiratory distress and in ER had agonal breathing and unresponsive. No pulse noted on stretcher transferand chest compressions were initiated. The Pt was resuscitated per ACLS protocol for approximately 5 minutes according to note, receiving epi x 2, bicarb x 2. Pt was intubated and placed on ventilator and given nebulizers and steroids. Pt admitted to the ICU s/p Cardiac Arrest and respiratory failure. The patient has been on propofol but having myoclonic twitches especially in right foot. Given his history, this is likely myoclonic jerks 2/2 to anoxic brain injury. Klonipin was started, twitching improved and not visible at this time. Patient having gagging on tube. There is minimal pupil contriction from 2mm to 1mm and therefore does not meet criteria for brain . However, only minimal brainstem activity and no significant improvement thus far. EEG completed, awaiting read. CT head completed and showed cerebral edema. Spoke to Dr. rouse regarding hypertonic saline/mannitol but due to renal failure would not be pursued. Spoke to daughter in detail yesterday and had extensive conversation regarding clinical status and minimal improvement thus far. There was mention of possible tracking off sedation but spoke to resident this AM and he did not visualize this. Patient still not overbreathing the vent. Physical Exam Last Vital Signs Temp Pulse Resp BP Pulse Ox 100.5 F H 83 28 H 114/73 100 07/10/17 08:42 07/10/17 08:42 07/10/17 08:42 07/10/17 08:37 07/09/17 21:00 Constitutional: Yes: Well Nourished, No Distress, Calm Eyes: Yes: PERRL, Other (R Upward Lat Gaze.) HENT: Yes: WNL, Atraumatic, Normocephalic Neck: Yes: WNL, Supple, Trachea Midline Cardiovascular: Yes: WNL, Regular Rate and Rhythm Respiratory: Yes: Diminished, Mechanically Ventilated, Wheezes Gastrointestinal: Yes: Abdomen, Obese, Distention, Hyperactive Bowel Sounds ...Rectal Exam: Yes: Deferred Renal/: Yes: Rocha Present Breast(s): Yes: WNL Extremities: Yes: Other (Clubbed Fingers.) Edema: Yes Edema: LLE: 1+, RLE: 1+ Peripheral Pulses WNL: Yes Integumentary: Yes: WNL Neurological: No facial droop, not responding to pain, not gagging on suction, R pupil 2mm --> 1mm, no spontaneous movement, R foot myoclonic twitching noted CBCD WBC 15.9 K/mm3 (4.0-10.0) H 07/10/17 05:50 RBC 2.64 M/mm3 (4.00-5.60) L 07/10/17 05:50 Hgb 7.3 GM/dL (11.7-16.9) L D 07/10/17 05:50 Hct 21.9 % (35.4-49) L D 07/10/17 05:50 MCV 82.8 fl (80-96) 07/10/17 05:50 MCHC 33.2 g/dl (32.0-35.9) 07/10/17 05:50 RDW 17.1 % (11.9-15.9) H 07/10/17 05:50 Plt Count 226 K/MM3 (134-434) 07/10/17 05:50 MPV 8.9 fl (7.5-11.1) 07/10/17 05:50 CMP Sodium 136 mmol/L (136-145) 07/10/17 05:50 Potassium 4.0 mmol/L (3.5-5.1) 07/10/17 05:50 Chloride 106 mmol/L (98-107) 07/10/17 05:50 Carbon Dioxide 14 mmol/L (21-32) L 07/10/17 05:50 Anion Gap 16 (8-16) 07/10/17 05:50 BUN 94 mg/dL (7-18) H 07/10/17 05:50 Creatinine 5.9 mg/dL (0.7-1.3) H 07/10/17 05:50 Creat Clearance w eGFR 9.93 (>60) 07/10/17 05:50 Calcium 7.0 mg/dL (8.5-10.1) L 07/10/17 05:50 Total Bilirubin 0.4 mg/dL (0.2-1.0) 07/10/17 05:50 AST 27 U/L (15-37) D 07/10/17 05:50 ALT 14 U/L (12-78) 07/10/17 05:50 Alkaline Phosphatase 53 U/L (45-117) 07/10/17 05:50 Total Protein 6.0 g/dl (6.4-8.2) L 07/10/17 05:50 Albumin 1.8 g/dl (3.4-5.0) L 07/10/17 05:50 Plan: 56 y/o man w/ HTN, HL, DM, CKD, HIV on HAART, EF 49.5%, BIBA for SOB. Reportedly had been experiencing worsening SOB & SAMUELS w/ assoc wheezing for several days prior to admission. While in route developed further respiratory distress and in ER had agonal breathing and unresponsive. No pulse noted on stretcher transferand chest compressions were initiated. The Pt was resuscitated per ACLS protocol for approximately 5 minutes according to note, receiving epi x 2, bicarb x 2. Pt was intubated and placed on ventilator and given nebulizers and steroids. Pt admitted to the ICU s/p Cardiac Arrest and respiratory failure. The patient has been on propofol but having myoclonic twitches especially in right foot which have improved with Klonipin However, only minimal brainstem activity and therefore significant concern regarding patient's ability to recover and prognosis. Given his history, this is likely myoclonic jerks 2/2 to anoxic brain injury and would require AEDS klonipin 1mg twice daily added Continue ICU care Continue Mechanical ventilation, wean as able Propofol on board, wean as able Monitor mental status for any improvement Monitor blood pressure, support as required IV Abx for possible PNA as needed CT head completed, cerebral edema noted, renal failure and therefore hypertonic saline not pursued EEG completed, awaiting report Had extensive conversation with daughter regarding clinical course Critical Care Time 35 mins
--- NOTE | 2017-07-10 10:02 | PN ---
Teaching Attending Note Name of Resident: Mukesh Niño ATTENDING PHYSICIAN STATEMENT I saw and evaluated the patient. I reviewed the resident's note and discussed the case with the resident. I agree with the resident's findings and plan as documented. SUBJECTIVE: Patient seen and examined in the ICU. Remains intubated and sedated on propofol/fentanyl. AC Mode of vent. No pressors. (+) Gag reflex and minimal pupillary response Intake & Output 07/07/17 07/08/17 07/09/17 07/10/17 23:59 23:59 23:59 23:59 Intake Total 784.4 2417.8 2560.8 443 Output Total 1100 2400 3150 700 Balance -315.6 17.8 -589.2 -257 Weight 211 lb 6.773 oz 211 lb 3 oz 209 lb 4 oz 206 lb 4 oz Last Vital Signs Temp Pulse Resp BP Pulse Ox 100.3 F H 101 H 31 H 163/85 100 07/10/17 12:00 07/10/17 12:00 07/10/17 12:03 07/10/17 12:00 07/10/17 08:00 Active Medications Clonazepam (Klonopin -) 1 mg PO BID PRN PRN Reason: Twitching Dexamethasone Sodium Phosphate (Decadron Injection -) 10 mg IVPUSH Q6H-IV [facility] Last Admin: 07/10/17 09:00 Dose: 10 mg Heparin Sodium (Porcine) (Heparin -) 5,000 unit SQ TID [facility] Last Admin: 07/10/17 06:34 Dose: 5,000 unit Propofol (Diprivan -) 1,000,000 mcg in 100 mls @ 2.858 mls/hr IVPB TITR [facility]; 5 MCG/KG/MIN PRN Reason: Protocol Last Admin: 07/10/17 10:17 Dose: 50 mcg/kg/min, 28.576 mls/hr Fentanyl 500 mcg/ Dextrose 100 mls @ 20 mls/hr IVPB TITR [facility] PRN Reason: 100 MCG/HR Last Admin: 07/10/17 06:35 Dose: 20 mls/hr Metronidazole (Flagyl 500mg Premixed Ivpb -) 500 mg in 100 mls @ 100 mls/hr IVPB Q8H-IV [facility] Last Admin: 07/10/17 10:06 Dose: 100 mls/hr Ceftriaxone Sodium (Rocephin 2gm Ivpb (Pre-Docked)) 2 gm in 100 mls @ 200 mls/ hr IVPB DAILY [facility] Last Admin: 07/10/17 10:07 Dose: 200 mls/hr Insulin Aspart (Novolog Vial Sliding Scale -) 1 vial SQ Q4HPO [facility] PRN Reason: Protocol Last Admin: 07/10/17 10:00 Dose: 8 units Labetalol HCl (Normodyne Injection -) 10 mg IVPUSH Q4H PRN PRN Reason: HYPERTENSION Last Admin: 07/09/17 11:47 Dose: 10 mg Metoprolol Tartrate (Lopressor -) 25 mg PO BID [facility] Last Admin: 07/10/17 10:06 Dose: 25 mg Constitutional: Yes: Intubated, minimally responsive Eyes: Yes: Pupils constricted: minimal response, Upward gaze HENT: Yes: WNL, Atraumatic, Normocephalic Neck: Yes: WNL, Supple, Trachea Midline Cardiovascular: Yes: Regular Rate and Rhythm Respiratory: Yes: Scattered bilateral rhonchi, Mechanically Ventilated Gastrointestinal: Yes: Abdomen, Obese, (+) Bowel Sounds ...Rectal Exam: Yes: Deferred Renal/: Yes: Rocha Present Breast(s): Yes: WNL Extremities: Yes: Cool Edema: Yes Edema: LLE: 1+, RLE: 1+ Peripheral Pulses WNL: Yes Integumentary: Yes: WNL Neurological: Yes: Nonresponsive ...Motor Strength: WNL Psychiatric: Yes: WNL Labs: Laboratory Results - last 24 hr 07/07/17 07/07/17 07/07/17 02:58 03:46 05:50 WBC RBC Hgb Hct MCV MCH MCHC RDW Plt Count MPV Neutrophils % Lymphocytes % Monocytes % Eosinophils % Basophils % Sodium Potassium Chloride Carbon Dioxide Anion Gap BUN Creatinine Creat Clearance w eGFR POC Glucometer 61.29422 81.90241 131.36868 Random Glucose Calcium Total Bilirubin AST ALT Alkaline Phosphatase Total Protein Albumin 07/07/17 07/07/17 07/07/17 11:20 18:06 21:58 WBC RBC Hgb Hct MCV MCH MCHC RDW Plt Count MPV Neutrophils % Lymphocytes % Monocytes % Eosinophils % Basophils % Sodium Potassium Chloride Carbon Dioxide Anion Gap BUN Creatinine Creat Clearance w eGFR POC Glucometer 180.66165 118.73102 248.53497 Random Glucose Calcium Total Bilirubin AST ALT Alkaline Phosphatase Total Protein Albumin 07/08/17 07/08/17 07/08/17 02:03 06:02 12:05 WBC RBC Hgb Hct MCV MCH MCHC RDW Plt Count MPV Neutrophils % Lymphocytes % Monocytes % Eosinophils % Basophils % Sodium Potassium Chloride Carbon Dioxide Anion Gap BUN Creatinine Creat Clearance w eGFR POC Glucometer 240.38729 219.19093 194.11432 Random Glucose Calcium Total Bilirubin AST ALT Alkaline Phosphatase Total Protein Albumin 07/08/17 07/09/17 07/09/17 15:13 02:48 05:32 WBC RBC Hgb Hct MCV MCH MCHC RDW Plt Count MPV Neutrophils % Lymphocytes % Monocytes % Eosinophils % Basophils % Sodium Potassium Chloride Carbon Dioxide Anion Gap BUN Creatinine Creat Clearance w eGFR POC Glucometer 188.15055 329.36304 132.56481 Random Glucose Calcium Total Bilirubin AST ALT Alkaline Phosphatase Total Protein Albumin 07/09/17 07/09/17 07/09/17 11:18 15:02 17:50 WBC RBC Hgb Hct MCV MCH MCHC RDW Plt Count MPV Neutrophils % Lymphocytes % Monocytes % Eosinophils % Basophils % Sodium Potassium Chloride Carbon Dioxide Anion Gap BUN Creatinine Creat Clearance w eGFR POC Glucometer 212.42905 246.56821 311.71753 Random Glucose Calcium Total Bilirubin AST ALT Alkaline Phosphatase Total Protein Albumin 07/09/17 07/10/17 07/10/17 21:50 01:29 05:50 WBC 15.9 H RBC 2.64 L Hgb 7.3 L D Hct 21.9 L D MCV 82.8 MCH 27.5 MCHC 33.2 RDW 17.1 H Plt Count 226 MPV 8.9 Neutrophils % 89.2 H D Lymphocytes % 6.9 L D Monocytes % 3.7 L Eosinophils % 0.0 D Basophils % 0.2 Sodium Potassium Chloride Carbon Dioxide Anion Gap BUN Creatinine Creat Clearance w eGFR POC Glucometer 383.82961 349.18792 Random Glucose Calcium Total Bilirubin AST ALT Alkaline Phosphatase Total Protein Albumin 07/10/17 05:50 WBC RBC Hgb Hct MCV MCH MCHC RDW Plt Count MPV Neutrophils % Lymphocytes % Monocytes % Eosinophils % Basophils % Sodium 136 Potassium 4.0 Chloride 106 Carbon Dioxide 14 L Anion Gap 16 BUN 94 H Creatinine 5.9 H Creat Clearance w eGFR 9.93 POC Glucometer Random Glucose 289 H D Calcium 7.0 L Total Bilirubin 0.4 AST 27 D ALT 14 Alkaline Phosphatase 53 Total Protein 6.0 L Albumin 1.8 L Problem List - Problems (1) CHF (congestive heart failure) Code(s): I50.9 - HEART FAILURE, UNSPECIFIED Qualifiers: Congestive heart failure type: unspecified congestive heart failure type Congestive heart failure chronicity: unspecified congestive heart failure chronicity Qualified Code(s): I50.9 - Heart failure, unspecified (2) Cardiopulmonary arrest with successful resuscitation Code(s): I46.9 - CARDIAC ARREST, CAUSE UNSPECIFIED (3) Pneumonia Code(s): J18.9 - PNEUMONIA, UNSPECIFIED ORGANISM (4) Respiratory failure Code(s): J96.90 - RESPIRATORY FAILURE, UNSP, UNSP W HYPOXIA OR HYPERCAPNIA Assessment/Plan ASSESS: This is a 56 YOM w/ HTN, HL, DM, CKD, & HIV/AIDS on HAART admitted now w / resp fail s/p cardiac arrest m/l 2/2 flash pulm edema +/- pna. PLAN: Full sedation vacation to assess mental status BD TX ABX per ID Monitor off Lasix SCDs Unfortunately overall outcome appears poor: anticipate compassionate extubation versus Trach/PEG Dr Glez Critical care time spent in reviewing chart, evaluating patient and formulating plan 40 minutes.
[2017-07-10] MEDS: METOPROLOL TARTRATE 25 MG TABLET (FP) PO SCH (10:06)
[2017-07-10] MEDS: CEFTRIAXONE 2 GM/100 ML BAG IVPB SCH (10:07)
[2017-07-10] MEDS ORDERED: INSULIN (NOVOLOG) ASPART 100 UNITS/ML 10ML VIAL ONE (10:34)
--- NOTE | 2017-07-10 11:35 | PN ---
Progress Note (short form) - Note Progress Note: CC: SOB/cardiac arrest. s: + fever. remains intubated/sedated Current Medications Generic Name Dose Route Start Last Admin Trade Name Luis Fernando PRN Reason Stop Dose Admin Clonazepam 1 mg 07/06/17 10:19 Klonopin - PO BID PRN Twitching Dexamethasone Sodium Phosphate 10 mg 07/09/17 11:45 07/10/17 09:00 Decadron Injection - IVPUSH 10 mg Q6H-IV PAULINE Administration Heparin Sodium (Porcine) 5,000 unit 07/08/17 15:30 07/10/17 06:34 Heparin - SQ 5,000 unit TID PAULINE Administration Propofol 1,000,000 mcg in 100 mls @ 2.858 mls/hr 07/05/17 02:15 07/10/17 10: 17 Diprivan - IVPB 50 mcg/kg/min TITR PAULINE 28.576 mls/hr Protocol Administration 5 MCG/KG/MIN Fentanyl 500 mcg/ Dextrose 100 mls @ 20 mls/hr 07/05/17 06:15 07/10/17 06:35 IVPB 20 mls/hr TITR PAULINE Administration 100 MCG/HR Metronidazole 500 mg in 100 mls @ 100 mls/hr 07/08/17 10:00 07/10/17 10:06 Flagyl 500mg Premixed Ivpb - IVPB 100 mls/hr Q8H-IV PAULINE Administration Ceftriaxone Sodium 2 gm in 100 mls @ 200 mls/hr 07/09/17 09:14 07/10/17 10:07 Rocephin 2gm Ivpb (Pre-Docked) IVPB 200 mls/hr DAILY PAULINE Administration Insulin Aspart 1 vial 07/07/17 14:30 07/10/17 10:00 Novolog Vial Sliding Scale - SQ 8 units Q4HPO PAULINE Administration Protocol Labetalol HCl 10 mg 07/09/17 11:12 07/09/17 11:47 Normodyne Injection - IVPUSH 10 mg Q4H PRN Administration HYPERTENSION Metoprolol Tartrate 25 mg 07/07/17 15:30 07/10/17 10:06 Lopressor - PO 25 mg BID PAULINE Administration Vital Signs Temp 99.7 F H 07/10/17 10:00 Pulse 80 07/10/17 10:00 Resp 28 H 07/10/17 10:00 BP 117/66 12/01/17 10:00 Pulse Ox 100 07/10/17 08:00 Intake & Output 07/09/17 07/09/17 07/10/17 11:59 23:59 11:59 Intake Total 752.8 1808 443 Output Total 800 2350 700 Balance -47.2 -542 -257 Weight 209 lb 4 oz 206 lb 4 oz Intake: IV 652.8 863 343 DIPRIVAN - 1,000,000 mcg 412.8 540 203 In 100 ml @ 5 MCG/KG/MIN 2.858 mls/hr IVPB TITR PAULINE Rx#:[id number] fentanyl 240 323 140 IVPB 100 865 100 Tube Irrigant 0 80 Output: Gastric Drainage 200 400 Urine 600 1950 700 Rocha 600 1950 700 Other: Voiding Method Indwelling Catheter Indwelling Catheter Indwelling Catheter Bowel Movement Yes: diarrhea Weight Measurement Method Built in [facility] in [facility] Constitutional: Yes: Well Nourished, No Distress, intubated, sedated. Eyes: No: Sclera Icterus Respiratory: Yes: mechanical breath sounds (anteriorly (pt intubated)). No: Accessory Muscle Use, Rales, Wheezes Gastrointestinal: Yes: Normal Bowel Sounds. No: Distention, Hepatomegaly, Palpable Mass, Tenderness Cardiovascular: Yes: tachcyardic, Regular Rate and Rhythm JVD: No Heart Sounds: Yes: S1, S2. No: Gallop Murmur: No: Systolic Murmur, Diastolic Murmurs) Extremities: No: Cool (feet), Cyanosis Edema: No Integumentary: No: Jaundice Neurological: No: sedated Psychiatric: No: Agitated - Other Data Labs, Other Data: Laboratory Last Values WBC 15.9 K/mm3 (4.0-10.0) H 07/10/17 05:50 RBC 2.64 M/mm3 (4.00-5.60) L 07/10/17 05:50 Hgb 7.3 GM/dL (11.7-16.9) L D 07/10/17 05:50 Hct 21.9 % (35.4-49) L D 07/10/17 05:50 MCV 82.8 fl (80-96) 07/10/17 05:50 MCH 27.5 pg (25.7-33.7) 07/10/17 05:50 MCHC 33.2 g/dl (32.0-35.9) 07/10/17 05:50 RDW 17.1 % (11.9-15.9) H 07/10/17 05:50 Plt Count 226 K/MM3 (134-434) 07/10/17 05:50 MPV 8.9 fl (7.5-11.1) 07/10/17 05:50 Total Counted 100 07/08/17 05:15 Neutrophils % 89.2 % (42.8-82.8) H D 07/10/17 05:50 Neutrophils % (Manual) 77.0 % (42.8-82.8) 07/08/17 05:15 Band Neutrophils % 1.0 % 07/08/17 05:15 Lymphocytes % 6.9 % (8-40) L D 07/10/17 05:50 Lymphocytes % (Manual) 17.0 % (8-40) D 07/08/17 05:15 Monocytes % 3.7 % (3.8-10.2) L 07/10/17 05:50 Monocytes % (Manual) 5 % (3.8-10.2) 07/08/17 05:15 Eosinophils % 0.0 % (0-4.5) D 07/10/17 05:50 Eosinophils % (Manual) 0.0 % (0-4.5) D 07/07/17 05:00 Basophils % 0.2 % (0-2.0) 07/10/17 05:50 Basophils % (Manual) 0.0 % (0-2.0) 07/07/17 05:00 Manual Slide Review No Result Required. 07/06/17 05:00 Platelet Estimate Adequate 07/07/17 05:00 Platelet Comment No clumping noted 07/07/17 05:00 PT with INR 13.30 SEC (9.98-11.88) H 07/06/17 05:00 INR 1.18 (0.82-1.09) H 07/06/17 05:00 PTT (Actin FS) 20.4 SECONDS (26.9-34.4) L 07/05/17 00:45 Anticoagulation Therapy Y 07/05/17 21:00 Puncture Site Arterial line 07/08/17 09:49 Patient Temperature 101.3 07/08/17 09:49 ABG pH 7.41 (7.35-7.45) 07/08/17 09:49 ABG pCO2 at Pt Temp 21.4 mmHg (35-45) L 07/08/17 09:49 ABG pO2 at Pt Temp 151.0 mmHg (80-100) H* 07/08/17 09:49 ABG HCO3 13.3 meq/L (22-26) L* 07/08/17 09:49 ABG O2 Sat (Measured) 98.8 % (90-98.9) 07/08/17 09:49 ABG O2 Content 13.1 % vol (15-22) L 07/08/17 09:49 ABG Base Excess -9.7 meq/l (-2-2) L 07/08/17 09:49 Sorin Test Positive 07/08/17 09:49 VBG pH 6.98 (7.32-7.42) L* 07/05/17 01:00 POC VBG pCO2 69.6 mmHg (38-52) H* 07/05/17 01:00 POC VBG pO2 49.8 mmHg (28-48) H 07/05/17 01:00 Mixed VBG HCO3 15.6 meq/L (19-25) L 07/05/17 01:00 Carboxyhemoglobin 0.2 gm% (0.5-2.0) L 07/05/17 06:00 Methemoglobin 1.0 % (0.4-1.5) 07/05/17 06:00 O2 Delivery Device Mech vent 07/08/17 09:49 Oxygen Flow Rate 60 07/08/17 09:49 Vent Mode A/c 07/08/17 09:49 Vent Rate 28 res rate 07/08/17 09:49 Mechanical Rate Espirit 07/08/17 09:49 PEEP 8.0 cmH2O 07/08/17 09:49 Pressure Support Vent 500 tidal volume 07/08/17 09:49 Sodium 136 mmol/L (136-145) 07/10/17 05:50 Potassium 4.0 mmol/L (3.5-5.1) 07/10/17 05:50 Chloride 106 mmol/L (98-107) 07/10/17 05:50 Carbon Dioxide 14 mmol/L (21-32) L 07/10/17 05:50 Anion Gap 16 (8-16) 07/10/17 05:50 BUN 94 mg/dL (7-18) H 07/10/17 05:50 Creatinine 5.9 mg/dL (0.7-1.3) H 07/10/17 05:50 Creat Clearance w eGFR 9.93 (>60) 07/10/17 05:50 POC Glucometer 349.69747 UNITS (80-120) 07/10/17 01:29 Random Glucose 289 mg/dL (74-106) H D 07/10/17 05:50 Lactic Acid 0.8 mmol/L (0.4-2.0) 07/08/17 06:30 Calcium 7.0 mg/dL (8.5-10.1) L 07/10/17 05:50 Phosphorus 5.3 mg/dL (2.5-4.9) H 07/07/17 05:00 Magnesium 1.6 mg/dL (1.8-2.4) L 07/07/17 05:00 Total Bilirubin 0.4 mg/dL (0.2-1.0) 07/10/17 05:50 AST 27 U/L (15-37) D 07/10/17 05:50 ALT 14 U/L (12-78) 07/10/17 05:50 Alkaline Phosphatase 53 U/L (45-117) 07/10/17 05:50 Creatine Kinase 237 IU/L (39-308) 07/07/17 13:00 Creatine Kinase Index 0.5 % (0.0-5.0) 07/07/17 13:00 CK-MB (CK-2) 1.282 ng/mL (0.5-3.6) 07/07/17 13:00 Troponin I 1.09 ng/ml (0.00-0.05) H* 07/07/17 13:00 B-Natriuretic Peptide 43195.37 pg/ml (5-125) H 07/05/17 00:45 Total Protein 6.0 g/dl (6.4-8.2) L 07/10/17 05:50 Albumin 1.8 g/dl (3.4-5.0) L 07/10/17 05:50 Urine Color Ltyellow 07/05/17 02:10 Urine Appearance Slcloudy 07/05/17 02:10 Urine pH 6.0 (5.0-8.0) 07/05/17 02:10 Ur Specific [place] 1.016 (1.001-1.035) 07/05/17 02:10 Urine Protein 3+ (NEGATIVE) H 07/05/17 02:10 Urine Glucose (UA) 1+ (NEGATIVE) H 07/05/17 02:10 Urine Ketones Negative (NEGATIVE) 07/05/17 02:10 Urine Blood 1+ (NEGATIVE) H 07/05/17 02:10 Urine Nitrite Negative (NEGATIVE) 07/05/17 02:10 Urine Bilirubin Negative (NEGATIVE) 07/05/17 02:10 Urine Urobilinogen Negative mg/dL (0.2-1.0) 07/05/17 02:10 Ur Leukocyte Esterase Negative (NEGATIVE) 07/05/17 02:10 Urine WBC (Auto) 3 /hpf (3-5) 07/05/17 02:10 Urine RBC (Auto) 14 /hpf (0-3) 07/05/17 02:10 Hyaline Casts 1 /lpf 07/05/17 02:10 Urine Mucus Rare 07/05/17 02:10 Ur Random Sodium 57 MMOL/L 07/06/17 14:50 Ur Random Potassium 32.6 MMOL/L 07/06/17 14:50 Ur Random Chloride 43 MMOL/L 07/06/17 14:50 Ur Random Urea Nitrogn 380 mg/dL 07/06/17 14:50 Tobramycin Trough 3.1 ug/ml (0.0-2.0) H* 07/06/17 05:00 Random Vancomycin < 0.800 ug/ml 07/05/17 05:00 Beta-(1,3)-D-Glucan 41 pg/mL (<80) 07/05/17 08:05 tele: sr EKG 07/07: sinus tach with pvc's. new difufes TWI. worse in precordial leads. prolonged qtc. cxr 07/10:clear lungs ECG #1: sinus tach, normal axis, +/- long QT (mild); no pathol q waves; borderline ischemic appearing ST depressions inferior leads and V6 (no old but this was not reported on 12/24 office ecg) #2: NSR, STs resolving ECG 07/07: MPI 05/26: no ischemia, EF 33% (global echo 06/2017: nl lv size. LV fn mod-sev reduced (global). nl rv size/fn. 1+ mac/mr/tr. rvsp 30-40. + pleural effusion. Echo 05/26 (): mod LVE, mild global LV hypo; nl RV; mild LAE; mild MR Echo 12/24: nl LV and RV, nl valves est cct 35 mins a/p: 56 yo smoker with h/o mild lv dysfunction, htn, hl, ckd, hiv, dm p/w progressive sob and subsequent PEA arrest with EMS (s/p resuscitation). acute hypoxic resp failure, acute on chronic syst CHF: -cxr clear today -resting echo 05/26 with mild LV dysfunction, ? worse (nuclear estimated EF 33%) , ? underlying CAD with balanced ischemia on nuclear--of note, ECG initially here with borderline ST changes for ischemia. ? diast chf component mixed in. -trop mildly elevated, now trending down. likely from demand. -received lasix drip 07/05 and 40mg iv 07/06 but now stopped due to worsening cr, cont prn for hypoxia -repeat echo here with worsened systolic function. consider invasive ischemia eval (cath) prior to hosp discharge depending in clinical course -cont beta blockade. -limit qtc prolonging drugs when possible as qtc slightly long on ecg cardiac arrest (PEA): -sec to acute chf/hypoxia most likely -telem with stable rhythm (sinus) -cont monitoring, optimization of chf and acid-base status, as doing - neuro note reviewed: Pt was resuscitated per ACLS protocol for approximately 5 minutes according to note, receiving epi x 2, bicarb x 2. Per report, exam c/ w anoxic brain injury with only minimal brainstem activity at present - poor prognosis. FLORECITA on CKD: -baseline creat here 2.8 in 05/26. initially 2.4 on presentation to ER -suspect hypoperfusion/atn as cause, cr still elevated but improved slightly from yesterday -holding lasix -renal following HTN: -cont bb HIV/Hep C: -per ID team + tobacco - cessation counseling if patient's clinical condition improves.
--- NOTE | 2017-07-10 15:17 | PN ---
Physical Exam: SUBJECTIVE: Patient seen and examined at bedside. Pt intubated and sedated. Febrile. Hypertensive. OBJECTIVE: Vital Signs Period Temp Pulse Resp BP Sys/[place] Pulse Ox Last 24 Hr 99.1 F-100.5 F 80-101 28-32 114-169/52-88 100-100 No change. GENERAL: Intubated and sedated. HEAD: Normal with no signs of trauma. EYES: sclera anicteric, conjunctiva clear. No ptosis. ENT: oropharynx clear without exudates, moist mucous membranes. NECK: Trachea midline, full range of motion, supple. LUNGS: Breath sounds equal, clear to auscultation bilaterally, no wheezes, no crackles, no accessory muscle use. HEART: Regular rate and rhythm, S1, S2 without murmur, rub or gallop. ABDOMEN: Soft, nondistended, normoactive bowel sounds, no guarding, no rebound, no hepatosplenomegaly, no masses. EXTREMITIES: 2+ pulses, warm, well-perfused, no edema. NEUROLOGICAL: Intubated and sedated PSYCH: Intubated and sedated SKIN: Warm, dry, normal turgor, no rashes or lesions noted Laboratory Results - last 24 hr 07/07/17 07/07/17 07/07/17 02:58 03:46 05:50 WBC RBC Hgb Hct MCV MCH MCHC RDW Plt Count MPV Neutrophils % Lymphocytes % Monocytes % Eosinophils % Basophils % Sodium Potassium Chloride Carbon Dioxide Anion Gap BUN Creatinine Creat Clearance w eGFR POC Glucometer 61.29717 81.51949 131.67125 Random Glucose Calcium Total Bilirubin AST ALT Alkaline Phosphatase Total Protein Albumin 07/07/17 07/07/17 07/07/17 11:20 18:06 21:58 WBC RBC Hgb Hct MCV MCH MCHC RDW Plt Count MPV Neutrophils % Lymphocytes % Monocytes % Eosinophils % Basophils % Sodium Potassium Chloride Carbon Dioxide Anion Gap BUN Creatinine Creat Clearance w eGFR POC Glucometer 180.44273 118.45373 248.20106 Random Glucose Calcium Total Bilirubin AST ALT Alkaline Phosphatase Total Protein Albumin 07/08/17 07/08/17 07/08/17 02:03 06:02 12:05 WBC RBC Hgb Hct MCV MCH MCHC RDW Plt Count MPV Neutrophils % Lymphocytes % Monocytes % Eosinophils % Basophils % Sodium Potassium Chloride Carbon Dioxide Anion Gap BUN Creatinine Creat Clearance w eGFR POC Glucometer 240.96305 219.16454 194.76715 Random Glucose Calcium Total Bilirubin AST ALT Alkaline Phosphatase Total Protein Albumin 07/08/17 07/09/17 07/09/17 15:13 15:02 17:50 WBC RBC Hgb Hct MCV MCH MCHC RDW Plt Count MPV Neutrophils % Lymphocytes % Monocytes % Eosinophils % Basophils % Sodium Potassium Chloride Carbon Dioxide Anion Gap BUN Creatinine Creat Clearance w eGFR POC Glucometer 188.44215 246.48361 311.18444 Random Glucose Calcium Total Bilirubin AST ALT Alkaline Phosphatase Total Protein Albumin 07/09/17 07/10/17 07/10/17 21:50 01:29 05:50 WBC 15.9 H RBC 2.64 L Hgb 7.3 L D Hct 21.9 L D MCV 82.8 MCH 27.5 MCHC 33.2 RDW 17.1 H Plt Count 226 MPV 8.9 Neutrophils % 89.2 H D Lymphocytes % 6.9 L D Monocytes % 3.7 L Eosinophils % 0.0 D Basophils % 0.2 Sodium Potassium Chloride Carbon Dioxide Anion Gap BUN Creatinine Creat Clearance w eGFR POC Glucometer 383.46121 349.65911 Random Glucose Calcium Total Bilirubin AST ALT Alkaline Phosphatase Total Protein Albumin 07/10/17 05:50 WBC RBC Hgb Hct MCV MCH MCHC RDW Plt Count MPV Neutrophils % Lymphocytes % Monocytes % Eosinophils % Basophils % Sodium 136 Potassium 4.0 Chloride 106 Carbon Dioxide 14 L Anion Gap 16 BUN 94 H Creatinine 5.9 H Creat Clearance w eGFR 9.93 POC Glucometer Random Glucose 289 H D Calcium 7.0 L Total Bilirubin 0.4 AST 27 D ALT 14 Alkaline Phosphatase 53 Total Protein 6.0 L Albumin 1.8 L Active Medications Generic Name Dose Route Start Last Admin Trade Name Freq PRN Reason Stop Dose Admin Dexamethasone Sodium Phosphate 10 mg 07/09/17 11:45 07/10/17 14:08 Decadron Injection - IVPUSH 10 mg Q6H-IV PAULINE Administration Heparin Sodium (Porcine) 5,000 unit 07/08/17 15:30 07/10/17 13:43 Heparin - SQ Not Given TID PAULINE Metronidazole 500 mg in 100 mls @ 100 mls/hr 07/08/17 10:00 07/10/17 10:06 Flagyl 500mg Premixed Ivpb - IVPB 100 mls/hr Q8H-IV PAULINE Administration Ceftriaxone Sodium 2 gm in 100 mls @ 200 mls/hr 07/09/17 09:14 07/10/17 10:07 Rocephin 2gm Ivpb (Pre-Docked) IVPB 200 mls/hr DAILY PAULINE Administration Propofol 1,000,000 mcg in 100 mls @ 2.807 mls/hr 07/10/17 14:00 Diprivan - IVPB TITR PAULINE Protocol 5 MCG/KG/MIN Insulin Aspart 1 vial 07/07/17 14:30 07/10/17 14:08 Novolog Vial Sliding Scale - SQ 6 units Q4HPO PAULINE Administration Protocol Labetalol HCl 10 mg 07/09/17 11:12 07/09/17 11:47 Normodyne Injection - IVPUSH 10 mg Q4H PRN Administration HYPERTENSION Metoprolol Tartrate 25 mg 07/07/17 15:30 07/10/17 10:06 Lopressor - PO 25 mg BID PAULINE Administration ASSESSMENT/PLAN: Pt is a 56 M w/ PMH HTN, HL, DM, CKD, and HIV on HAART who presented to ED with cardiopulmonary arrest. Pt is now intubated and sedated. Prior to arriving at the ED, pt had been complaining of wheezing and SOB. On arriving in ED, pt was in arrest and was coded for 5 min. Cardio #Cardiopulmonary arrest -pt was coded in ED for at least 5 min -intubated -Echo showed moderate-severe LV dysfunction -Tn peak at 1.33. Per Cardio, Tn is combination of demand & sepsis -holding Lasix at this time #Neuro -Anoxic brain injury -Neuro on board -Pt was down and coded for several minutes -now exhibiting myoclonic jerks -holding klonopin -per Radiologist Dr. Estrada, Head CT revealed loss of balderas/white junction, and sulcal effacement, but no sign of herniation. -Decadron 10 -EEG abnormal -holding sedation to assess mental function #ID -HIV positive -pt sees Dr. Vital as outpt -has been resistant to several medications -HIV meds on hold for now -Leukocytosis -WBC 15.9 -Pt on Flagyl/Rocephin per ID #Nephro -FLORECITA on CKD -Rn Homecare 5.9 -Nephro on board -FLORECITA likely worsened by arrest -No need for HD at this time -Hold lasix for now #Endocrine -DM -ISS #FEN -on NS -Hypokalemia. Hypocalcemia. Repleting -Intubated sedated #PPx -Hep SubQ #Dispo -admitted to ICU Mukesh Niño MD PGY-1, ICU Visit type - Emergency Visit Emergency Visit: No - New Patient This patient is new to me today: No - Critical Care Critical Care patient: No - Discharge Referral Referred to [facility] No
[2017-07-10] MEDS: LABETALOL HCL 5 MG/1 ML (100MG/20 ML VIAL) IVPUSH PRN ×2 (16:37→20:07)
--- NOTE | 2017-07-10 17:54 | PN ---
Progress Note, Physician History of Present Illness: Pt seen and examined at bedside. He remains in the ICU. He remains intubated and poorly responsive. - Current Medication List Current Medications: Active Medications Dexamethasone Sodium Phosphate (Decadron Injection -) 10 mg IVPUSH Q6H-IV [facility] Last Admin: 07/10/17 14:08 Dose: 10 mg Heparin Sodium (Porcine) (Heparin -) 5,000 unit SQ TID [facility] Last Admin: 07/10/17 13:43 Dose: Not Given Metronidazole (Flagyl 500mg Premixed Ivpb -) 500 mg in 100 mls @ 100 mls/hr IVPB Q8H-IV PAULINE Last Admin: 07/10/17 17:02 Dose: 100 mls/hr Ceftriaxone Sodium (Rocephin 2gm Ivpb (Pre-Docked)) 2 gm in 100 mls @ 200 mls/ hr IVPB DAILY [facility] Last Admin: 07/10/17 10:07 Dose: 200 mls/hr Propofol (Diprivan -) 1,000,000 mcg in 100 mls @ 2.807 mls/hr IVPB TITR PAULINE; 5 MCG/KG/MIN PRN Reason: Protocol Last Titration: 07/10/17 15:29 Dose: 50 mcg/kg/min, 28.066 mls/hr Insulin Aspart (Novolog Vial Sliding Scale -) 1 vial SQ Q4HPO [facility] PRN Reason: Protocol Last Admin: 07/10/17 17:02 Dose: 6 units Labetalol HCl (Normodyne Injection -) 10 mg IVPUSH Q4H PRN PRN Reason: HYPERTENSION Last Admin: 07/10/17 16:37 Dose: 10 mg Metoprolol Tartrate (Lopressor -) 25 mg PO BID [facility] Last Admin: 07/10/17 10:06 Dose: 25 mg - Objective Vital Signs: Vital Signs Temperature 100.0 F H 07/10/17 16:00 Pulse Rate 96 H 07/10/17 16:00 Respiratory Rate 36 H 07/10/17 17:14 Blood Pressure 168/90 07/10/17 16:00 O2 Sat by Pulse Oximetry (%) 100 07/10/17 08:00 Constitutional: Yes: Calm Eyes: Yes: Conjunctiva Clear HENT: Yes: Atraumatic Cardiovascular: Yes: S1, S2 Respiratory: Yes: Mechanically Ventilated Gastrointestinal: Yes: Soft Genitourinary: Yes: Rocha Present Musculoskeletal: Yes: Muscle Weakness Edema: Yes Edema: LLE: Trace, RLE: Trace Neurological: Yes: Lethargy Labs: CBC, BMP 07/10/17 05:50 07/10/17 05:50 INR, PTT INR 1.18 (0.82-1.09) H 07/06/17 05:00 - ....Imaging X-ray: Report Reviewed Problem List - Problems (1) FLORECITA (acute kidney injury) Code(s): N17.9 - ACUTE KIDNEY FAILURE, UNSPECIFIED (2) CHF (congestive heart failure) Code(s): I50.9 - HEART FAILURE, UNSPECIFIED Qualifiers: Congestive heart failure type: unspecified congestive heart failure type Congestive heart failure chronicity: unspecified congestive heart failure chronicity Qualified Code(s): I50.9 - Heart failure, unspecified (3) Cardiopulmonary arrest with successful resuscitation Code(s): I46.9 - CARDIAC ARREST, CAUSE UNSPECIFIED (4) Chronic kidney disease Code(s): N18.9 - CHRONIC KIDNEY DISEASE, UNSPECIFIED (5) Hypertension Code(s): I10 - ESSENTIAL (PRIMARY) HYPERTENSION (6) Chronic kidney disease Code(s): N18.9 - CHRONIC KIDNEY DISEASE, UNSPECIFIED Assessment/Plan Current Medications Generic Name Dose Route Start Last Admin Trade Name Luis Fernando PRN Reason Stop Dose Admin Dexamethasone Sodium Phosphate 10 mg 07/09/17 11:45 07/10/17 14:08 Decadron Injection - IVPUSH 10 mg Q6H-IV [facility] Administration Heparin Sodium (Porcine) 5,000 unit 07/08/17 15:30 07/10/17 13:43 Heparin - SQ Not Given TID PAULINE Metronidazole 500 mg in 100 mls @ 100 mls/hr 07/08/17 10:00 07/10/17 17:02 Flagyl 500mg Premixed Ivpb - IVPB 100 mls/hr Q8H-IV [facility] Administration Ceftriaxone Sodium 2 gm in 100 mls @ 200 mls/hr 07/09/17 09:14 07/10/17 10:07 Rocephin 2gm Ivpb (Pre-Docked) IVPB 200 mls/hr DAILY [facility] Administration Propofol 1,000,000 mcg in 100 mls @ 2.807 mls/hr 07/10/17 14:00 07/10/17 15: 29 Diprivan - IVPB 50 mcg/kg/min TITR [facility] 28.066 mls/hr Protocol Titration 5 MCG/KG/MIN Insulin Aspart 1 vial 07/07/17 14:30 07/10/17 17:02 Novolog Vial Sliding Scale - SQ 6 units Q4HPO [facility] Administration Protocol Labetalol HCl 10 mg 07/09/17 11:12 07/10/17 16:37 Normodyne Injection - IVPUSH 10 mg Q4H PRN Administration HYPERTENSION Metoprolol Tartrate 25 mg 07/07/17 15:30 07/10/17 10:06 Lopressor - PO 25 mg BID PA[facility] Administration Impression 1. FLORECITA 2. CKD 3. cardiac arrest 4. CHF 5. HIV 6. hypomagnesemia 7. anoxic brain injury 8. anemia Plan - creatinine is improved however bun is worse - pt being workup for gi bleed, which can explain the elevated bun - vent support - family are discussed GOC - discussed with ICU - likely ATN from hypotension during arrest - pt does have history of CKD - neuro follow up - cont to monitor urine output - prognosis guarded
--- NOTE | 2017-07-10 18:48 | HOSP ---
Subjective - Review of Symptoms Events since last encounter: Patients gastric content was found to be heme occult positive. Hgb has dropped almost 2 units in last 24hrs. Subjective: Patient is intubated and sedated. Unable to obtain ROS. Physical Examination Vital Signs: Vital Signs Temperature 99.3 F 07/10/17 18:00 Pulse Rate 76 07/10/17 18:00 Respiratory Rate 27 H 07/10/17 18:00 Blood Pressure 136/68 07/10/17 18:00 O2 Sat by Pulse Oximetry (%) 100 07/10/17 08:00 Constitutional: No: Other (intubated and sedated) HENT: Yes: Atraumatic, Normocephalic Cardiovascular: Yes: Regular Rate and Rhythm Respiratory: Yes: Mechanically Ventilated Gastrointestinal: Yes: Soft, Hematemesis Edema: LLE: Trace, RLE: Trace Neurological: Yes: Lethargy Labs: CBC, BMP 07/10/17 05:50 07/10/17 05:50 Laboratory Tests 07/09/17 07/10/17 05:10 05:50 Hgb 9.1 L 7.3 L D Hospitalist Encounter Assessment: * Most likely upper GI bleed. * Heparin held * Will transfuse 1 unit of PRBC * Repeat CBC post transfusion. * continue to monitor BP and HR. Visit type - Emergency Visit Emergency Visit: Yes ED Registration Date: 07/05/17 Care time: The patient presented to the Emergency Department on the above date and was hospitalized for further evaluation of their emergent condition. - New Patient This patient is new to me today: Yes Date on this admission: 07/10/17 - Critical Care Critical Care patient: Yes Total Critical Care Time (in minutes): 32 Critical Care Statement: The care of this patient involved high complexity decision making to prevent further life threatening deterioration of the patient 's condition and/or to evaluate & treat vital organ system(s) failure or risk of failure.
[2017-07-10] MEDS: PANTOPRAZOLE SODIUM 80 MG in SODIUM CHLORIDE 100 ML IVPB SCH (20:04)
[2017-07-10] MEDS: METOPROLOL TARTRATE 5 MG/5 ML VIAL IVPUSH PRN (22:00)
[2017-07-10] MEDS ORDERED: METOPROLOL TARTRATE 5 MG/5 ML VIAL ONE (22:02)
--- NOTE | 2017-07-10 22:25 | PN ---
Progress Note, Physician - Current Medication List Current Medications: Active Medications Acetaminophen (Ofirmev Injection -) 1,000 mg IVPB Q6H PRN PRN Reason: FEVER OR PAIN Dexamethasone Sodium Phosphate (Decadron Injection -) 10 mg IVPUSH Q6H-IV [facility] Last Admin: 07/10/17 20:07 Dose: 10 mg Heparin Sodium (Porcine) (Heparin -) 5,000 unit SQ TID [facility] Last Admin: 07/10/17 13:43 Dose: Not Given Metronidazole (Flagyl 500mg Premixed Ivpb -) 500 mg in 100 mls @ 100 mls/hr IVPB Q8H-IV [facility] Last Admin: 07/10/17 17:02 Dose: 100 mls/hr Ceftriaxone Sodium (Rocephin 2gm Ivpb (Pre-Docked)) 2 gm in 100 mls @ 200 mls/ hr IVPB DAILY [facility] Last Admin: 07/10/17 10:07 Dose: 200 mls/hr Propofol (Diprivan -) 1,000,000 mcg in 100 mls @ 2.807 mls/hr IVPB TITR PA[facility]; 5 MCG/KG/MIN PRN Reason: Protocol Last Admin: 07/10/17 20:05 Dose: 50 mcg/kg/min, 28.066 mls/hr Pantoprazole Sodium 80 mg/ (Sodium Chloride) 100 mls @ 10 mls/hr IVPB Q10H [facility] PRN Reason: 8 MG/HR Last Admin: 07/10/17 20:04 Dose: 10 mls/hr Insulin Aspart (Novolog Vial Sliding Scale -) 1 vial SQ Q4HPO [facility] PRN Reason: Protocol Last Admin: 07/10/17 17:02 Dose: 6 units Labetalol HCl (Normodyne Injection -) 10 mg IVPUSH Q4H PRN PRN Reason: HYPERTENSION Last Admin: 07/10/17 20:07 Dose: 10 mg Metoprolol Tartrate (Lopressor -) 25 mg PO BID [facility] Last Admin: 07/10/17 10:06 Dose: 25 mg Metoprolol Tartrate (Lopressor Injection -) 5 mg IVPUSH Q4H PRN PRN Reason: HYPERTENSION - Objective Vital Signs: Vital Signs Temperature 99.4 F 07/10/17 20:00 Pulse Rate 91 H 07/10/17 20:00 Respiratory Rate 36 H 07/10/17 22:04 Blood Pressure 165/92 07/10/17 20:00 O2 Sat by Pulse Oximetry (%) 100 07/10/17 20:42 Labs: CBC, BMP 07/10/17 05:50 07/10/17 05:50 INR, PTT INR 1.18 (0.82-1.09) H 07/06/17 05:00 Problem List - Problems (1) Respiratory failure Code(s): J96.90 - RESPIRATORY FAILURE, UNSP, UNSP W HYPOXIA OR HYPERCAPNIA (2) Cardiopulmonary arrest with successful resuscitation Code(s): I46.9 - CARDIAC ARREST, CAUSE UNSPECIFIED (3) Acute on chronic diastolic CHF (congestive heart failure) Code(s): I50.33 - ACUTE ON CHRONIC DIASTOLIC (CONGESTIVE) HEART FAILURE (4) Uncontrolled diabetes mellitus Code(s): E11.65 - TYPE 2 DIABETES MELLITUS WITH HYPERGLYCEMIA
[2017-07-10] MEDS: ACETAMINOPHEN 1000 MG/100 ML VIAL (NON FORMULARY) IVPB PRN (22:30)
[2017-07-10] MEDS ORDERED: LABETALOL HCL 5 MG/1 ML (100MG/20 ML VIAL) IVPUSH ONE (22:31)
[2017-07-10 23:42] LABS: ARTERIAL BLD GAS O2 SATURATION 97.3 % (90-98.9); ARTERIAL BLOOD GAS pH 7.31 (7.35-7.45)
[2017-07-10 23:43] LABS: LPM/O2% 40; PT. ON O2? YES; VENT RATE 28
[2017-07-10 23:45] LABS: ARTERIAL BLOOD GAS BASE EXCESS -14.2 meq/l (-2-2); ARTERIAL BLOOD GAS HCO3 10.5 meq/L (22-26)
[2017-07-11] MEDS: METOPROLOL TARTRATE 25 MG TABLET (FP) PO SCH ×4 (00:44→22:32)
[2017-07-11] MEDS: LABETALOL HCL 5 MG/1 ML (100MG/20 ML VIAL) IVPUSH PRN ×5 (01:36→23:00)
[2017-07-11] MEDS: METRONIDAZOLE 500 MG PREMIXED 500 MG/100 ML MG IVPB SCH ×3 (02:11→17:17)
[2017-07-11] MEDS: INSULIN SLIDING SCALE (NOVOLOG) 1 VIAL SQ SCH ×6 (03:00→22:32)
[2017-07-11] MEDS: DEXAMETHASONE SOD PHOSPHATE 10 MG/1 ML VIAL IVPUSH SCH ×4 (03:36→20:41)
[2017-07-11] MEDS: PANTOPRAZOLE SODIUM 80 MG in SODIUM CHLORIDE 100 ML IVPB SCH ×4 (06:04→22:38)
[2017-07-11 06:16] LABS: BASO % 0.1 % (0-2.0); MCH 28.2 pg (25.7-33.7); MCHC 33.8 g/dl (32.0-35.9); MEAN CELL VOLUME 83.4 fl (80-96); MEAN PLT VOLUME 9.1 fl (7.5-11.1); NEUT % 89.2 % (42.8-82.8); PLATELET COUNT 269 K/MM3 (134-434); RDW 16.7 % (11.9-15.9); WHITE BLOOD COUNT 14.3 K/mm3 (4.0-10.0)
[2017-07-11 06:40] LABS: ANION GAP 17 (8-16); CO2 12 mmol/L (21-32); CREATININE 4.8 mg/dL (0.7-1.3); MAGNESIUM 2.4 mg/dL (1.8-2.4); PHOSPHOROUS 6.7 mg/dL (2.5-4.9)
[2017-07-11] MEDS ORDERED: INSULIN (NOVOLOG) ASPART 100 UNITS/ML 10ML VIAL ONE (06:42)
[2017-07-11 06:58] LABS: CALCIUM 6.4 mg/dL (8.5-10.1); GLUCOSE,RANDOM 337 mg/dL (74-106)
[2017-07-11] MEDS: PROPOFOL 1,000,000 MCG/100 ML VIAL IVPB SCH ×5 (07:03→22:18)
--- NOTE | 2017-07-11 07:15 | PN ---
Progress Note, Physician Chief Complaint: ID Vent dependent GI bleeding (upper) noted Ceftriaxone metronidazole ( MSSA GROUP STREP ? ASPIRATION) Low grade temps - Current Medication List Current Medications: Active Medications Acetaminophen (Ofirmev Injection -) 1,000 mg IVPB Q6H PRN PRN Reason: FEVER OR PAIN Last Admin: 07/10/17 22:30 Dose: 1,000 mg Dexamethasone Sodium Phosphate (Decadron Injection -) 10 mg IVPUSH Q6H-IV [facility] Last Admin: 07/11/17 03:36 Dose: 10 mg Heparin Sodium (Porcine) (Heparin -) 5,000 unit SQ TID [facility] Last Admin: 07/10/17 13:43 Dose: Not Given Metronidazole (Flagyl 500mg Premixed Ivpb -) 500 mg in 100 mls @ 100 mls/hr IVPB Q8H-IV [facility] Last Admin: 07/11/17 02:11 Dose: 100 mls/hr Ceftriaxone Sodium (Rocephin 2gm Ivpb (Pre-Docked)) 2 gm in 100 mls @ 200 mls/ hr IVPB DAILY [facility] Last Admin: 07/10/17 10:07 Dose: 200 mls/hr Propofol (Diprivan -) 1,000,000 mcg in 100 mls @ 2.807 mls/hr IVPB TITR PAUL[facility]; 5 MCG/KG/MIN PRN Reason: Protocol Last Admin: 07/11/17 07:03 Dose: 65 mcg/kg/min, 36.486 mls/hr Pantoprazole Sodium 80 mg/ (Sodium Chloride) 100 mls @ 10 mls/hr IVPB Q10H [facility] PRN Reason: 8 MG/HR Last Admin: 07/11/17 06:04 Dose: 10 mls/hr Insulin Aspart (Novolog Vial Sliding Scale -) 1 vial SQ Q4HPO [facility] PRN Reason: Protocol Last Admin: 07/11/17 06:04 Dose: 8 units Labetalol HCl (Normodyne Injection -) 10 mg IVPUSH Q4H PRN PRN Reason: HYPERTENSION Last Admin: 07/11/17 05:03 Dose: 10 mg Metoprolol Tartrate (Lopressor -) 25 mg PO BID [facility] Last Admin: 07/11/17 00:44 Dose: Not Given Metoprolol Tartrate (Lopressor Injection -) 5 mg IVPUSH Q4H PRN PRN Reason: HYPERTENSION Last Admin: 07/10/17 22:00 Dose: 5 mg - Objective Vital Signs: Vital Signs Temperature 99.4 F 07/11/17 05:55 Pulse Rate 80 07/11/17 05:55 Respiratory Rate 29 H 07/11/17 05:55 Blood Pressure 173/88 07/11/17 04:00 O2 Sat by Pulse Oximetry (%) 100 07/11/17 00:08 Constitutional: Yes: Other (Intubated) Cardiovascular: Yes: S1, S2 Respiratory: Yes: WNL, Regular, CTA Bilaterally. No: Rhonchi Gastrointestinal: Yes: Soft. No: Tenderness Labs: CBC, BMP 07/11/17 05:50 07/11/17 05:50 INR, PTT INR 1.18 (0.82-1.09) H 07/06/17 05:00 Problem List - Problems (1) Cardiopulmonary arrest with successful resuscitation Code(s): I46.9 - CARDIAC ARREST, CAUSE UNSPECIFIED (2) Uncontrolled diabetes mellitus Code(s): E11.65 - TYPE 2 DIABETES MELLITUS WITH HYPERGLYCEMIA (3) Sepsis Code(s): A41.9 - SEPSIS, UNSPECIFIED ORGANISM (4) Chronic kidney disease Code(s): N18.9 - CHRONIC KIDNEY DISEASE, UNSPECIFIED (5) Hypertension Code(s): I10 - ESSENTIAL (PRIMARY) HYPERTENSION Assessment/Plan Microbiology 07/05/17 21:10 Sputum - Endotrachea Suction/Ventilator Gram Stain - Final 07/05/17 21:10 Sputum - Endotrachea Suction/Ventilator Sputum Culture - Final Staphylococcus Aureus Strep Agalactiae Group B 07/05/17 08:18 Blood - Peripheral Venous Blood Culture - Final NO GROWTH AFTER 5 DAYS INCUBATION 07/05/17 08:05 Blood - Peripheral Venous Blood Culture - Final NO GROWTH AFTER 5 DAYS INCUBATION 07/05/17 02:10 Urine - Urine - Catheterized Urine Culture - Final NO GROWTH OBTAINED Laboratory Tests 07/06/17 07/10/17 07/11/17 05:00 23:15 05:50 WBC 14.3 H Hgb 10.6 L D Hct 31.2 L D Plt Count 269 Neutrophils % 89.2 H Lymphocytes % 6.0 L Monocytes % 4.7 INR 1.18 H ABG pH 7.31 L ABG pCO2 at Pt Temp 21.3 L ABG pO2 at Pt Temp 173.0 H* Oxygen Flow Rate 40 BUN Creatinine Random Glucose 07/11/17 05:50 WBC Hgb Hct Plt Count Neutrophils % Lymphocytes % Monocytes % INR ABG pH ABG pCO2 at Pt Temp ABG pO2 at Pt Temp Oxygen Flow Rate BUN 97 H Creatinine 4.8 H Random Glucose 337 H* Assessment Getting treated for possible PNA vs colonization of respiratory tract MSSA GROUP B strep , aspiration Chest xray shows no clear infiltrate WBC coming down. Cardiopulmonary arrest Anoxic brain injury Acute and chronic kidney disease Hypertension HIV chronic stable History of Hepatitis C SVR treatment Plan Will continue antibiotic another 24 hours -48hours and moniter for any fever ? secondary infection Amanuel ROJAS
[2017-07-11] MEDS: ACETAMINOPHEN 1000 MG/100 ML VIAL (NON FORMULARY) IVPB PRN ×2 (07:30→22:19)
--- NOTE | 2017-07-11 07:37 | PN ---
Progress Note (short form) - Note Progress Note: PULM/CCM SUBJECTIVE: Patient seen and examined in the ICU. 24Hr -tachypneic with agonal like breathing off fentanyl -more acidemic, Hco3 downtrending though Cr coming down as well -neuro exam worsening, suspect herniation. Vital Signs Temp 99.4 F 07/11/17 05:55 Pulse 80 07/11/17 05:55 Resp 29 H 07/11/17 05:55 BP 173/88 07/11/17 04:00 Pulse Ox 100 07/11/17 00:08 Intake & Output 07/10/17 07/10/17 07/11/17 11:59 23:59 11:59 Intake Total 443 884.4 1126 Output Total 700 1800 1250 Balance -257 -915.6 -124 Weight 93.553 kg 93.5 kg Intake: IV 343 484.4 576 DIPRIVAN - 1,000,000 mcg 456 In 100 ml @ 5 MCG/KG/MIN 2.807 mls/hr IVPB TITR [facility] Rx#:[id number] DIPRIVAN - 1,000,000 mcg 203 344.4 In 100 ml @ 5 MCG/KG/MIN 2.858 mls/hr IVPB TITR [facility] Rx#:[id number] fentanyl 140 140 protonix gtt 120 IVPB 100 400 200 Oral 0 Packed Cells 350 Output: Gastric Drainage 700 150 Urine 700 1100 1100 Rocha 700 1100 1100 Other: Voiding Method Indwelling Catheter Indwelling Catheter Indwelling Catheter Bowel Movement Yes: 50ML VIA FLEXISEAL Weight Measurement Method Built in [facility] Built in [facility] Current Medications Acetaminophen (Ofirmev Injection -) 1,000 mg IVPB Q6H PRN PRN Reason: FEVER OR PAIN Last Admin: 07/10/17 22:30 Dose: 1,000 mg Dexamethasone Sodium Phosphate (Decadron Injection -) 10 mg IVPUSH Q6H-IV [facility] Last Admin: 07/11/17 03:36 Dose: 10 mg Heparin Sodium (Porcine) (Heparin -) 5,000 unit SQ TID [facility] Last Admin: 07/10/17 13:43 Dose: Not Given Metronidazole (Flagyl 500mg Premixed Ivpb -) 500 mg in 100 mls @ 100 mls/hr IVPB Q8H-IV [facility] Last Admin: 07/11/17 02:11 Dose: 100 mls/hr Ceftriaxone Sodium (Rocephin 2gm Ivpb (Pre-Docked)) 2 gm in 100 mls @ 200 mls/ hr IVPB DAILY [facility] Last Admin: 07/10/17 10:07 Dose: 200 mls/hr Propofol (Diprivan -) 1,000,000 mcg in 100 mls @ 2.807 mls/hr IVPB TITR [facility]; 5 MCG/KG/MIN PRN Reason: Protocol Last Admin: 07/11/17 07:03 Dose: 65 mcg/kg/min, 36.486 mls/hr Pantoprazole Sodium 80 mg/ (Sodium Chloride) 100 mls @ 10 mls/hr IVPB Q10H [facility] PRN Reason: 8 MG/HR Last Admin: 07/11/17 06:04 Dose: 10 mls/hr Insulin Aspart (Novolog Vial Sliding Scale -) 1 vial SQ Q4HPO [facility] PRN Reason: Protocol Last Admin: 07/11/17 06:04 Dose: 8 units Labetalol HCl (Normodyne Injection -) 10 mg IVPUSH Q4H PRN PRN Reason: HYPERTENSION Last Admin: 07/11/17 05:03 Dose: 10 mg Metoprolol Tartrate (Lopressor -) 25 mg PO BID [facility] Last Admin: 07/11/17 00:44 Dose: Not Given Metoprolol Tartrate (Lopressor Injection -) 5 mg IVPUSH Q4H PRN PRN Reason: HYPERTENSION Last Admin: 07/10/17 22:00 Dose: 5 mg Constitutional: intbuated, on propofol, no reaction to noxious stimuli Eyes: Yes: Pupils dilated @ 6mm, minimally reactive HENT: Yes: WNL, Atraumatic, Normocephalic Neck: Yes: WNL, Supple, Trachea Midline Cardiovascular: Yes: Regular Rate and Rhythm Respiratory: Yes: Scattered bilateral rhonchi, Mechanically Ventilated Gastrointestinal: Yes: soft, slightly distended, hypoactive BS ...Rectal Exam: Yes: Deferred Renal/: Yes: Rocha Present Breast(s): Yes: WNL Extremities: Yes: Cool Edema: Yes Edema: LLE: 1+, RLE: 1+ Peripheral Pulses WNL: Yes Integumentary: Yes: WNL Neurological: Yes: Nonresponsive, no withdrawal to pain, corneal intact, + dolls Labs: CBCD WBC 14.3 K/mm3 (4.0-10.0) H 07/11/17 05:50 RBC 3.74 M/mm3 (4.00-5.60) L D 07/11/17 05:50 Hgb 10.6 GM/dL (11.7-16.9) L D 07/11/17 05:50 Hct 31.2 % (35.4-49) L D 07/11/17 05:50 MCV 83.4 fl (80-96) 07/11/17 05:50 MCHC 33.8 g/dl (32.0-35.9) 07/11/17 05:50 RDW 16.7 % (11.9-15.9) H 07/11/17 05:50 Plt Count 269 K/MM3 (134-434) 07/11/17 05:50 MPV 9.1 fl (7.5-11.1) 07/11/17 05:50 CMP Sodium 142 mmol/L (136-145) 07/11/17 05:50 Potassium 3.1 mmol/L (3.5-5.1) L D 07/11/17 05:50 Chloride 113 mmol/L (98-107) H 07/11/17 05:50 Carbon Dioxide 12 mmol/L (21-32) L 07/11/17 05:50 Anion Gap 17 (8-16) H 07/11/17 05:50 BUN 97 mg/dL (7-18) H 07/11/17 05:50 Creatinine 4.8 mg/dL (0.7-1.3) H 07/11/17 05:50 Creat Clearance w eGFR 9.93 (>60) 07/10/17 05:50 Calcium 6.4 mg/dL (8.5-10.1) L* 07/11/17 05:50 Total Bilirubin 0.4 mg/dL (0.2-1.0) 07/10/17 05:50 AST 27 U/L (15-37) D 07/10/17 05:50 ALT 14 U/L (12-78) 07/10/17 05:50 Alkaline Phosphatase 53 U/L (45-117) 07/10/17 05:50 Total Protein 6.0 g/dl (6.4-8.2) L 07/10/17 05:50 Albumin 1.8 g/dl (3.4-5.0) L 07/10/17 05:50 Problem List - Problems (1) CHF (congestive heart failure) Code(s): I50.9 - HEART FAILURE, UNSPECIFIED Qualifiers: Congestive heart failure type: unspecified congestive heart failure type Congestive heart failure chronicity: unspecified congestive heart failure chronicity Qualified Code(s): I50.9 - Heart failure, unspecified (2) Cardiopulmonary arrest with successful resuscitation Code(s): I46.9 - CARDIAC ARREST, CAUSE UNSPECIFIED (3) Pneumonia Code(s): J18.9 - PNEUMONIA, UNSPECIFIED ORGANISM (4) Respiratory failure Code(s): J96.90 - RESPIRATORY FAILURE, UNSP, UNSP W HYPOXIA OR HYPERCAPNIA Assessment/Plan ASSESS: This is a 56 YOM w/ HTN, HL, DM, CKD, & HIV/AIDS on HAART admitted now w / resp fail s/p cardiac arrest m/l 2/2 flash pulm edema +/- pna. PLAN: Neuro status check, off sedation as much as possible, however multiple confounders for prognostication consider repeat CT head (variable Pupil size c/f herniation) worsening acidosis despite down trending Cr, send lactate On PPI gtt for hgb drop and coffee ground via NG, would not pursue EGD, transfuse as necessary (Hgb < 7) BD TX ABX per ID Monitor off Lasix, Trend Cr ,currently downtrending SCDs GOC discussion ongoing [facility] Moreland [facility] [id number] CCT
[2017-07-11] MEDS: CEFTRIAXONE 2 GM/100 ML BAG IVPB SCH (09:14)
--- NOTE | 2017-07-11 09:31 | PN ---
Progress Note (short form) - Note Progress Note: RENAL Pt is known to me from visits to my office He is in icu s/p cardiac arrest tachypneic Last Vital Signs Temp Pulse Resp BP Pulse Ox 99.6 F 92 H 34 H 165/87 100 07/11/17 08:00 07/11/17 08:00 07/11/17 08:00 07/11/17 08:00 07/11/17 08:00 pupils equal and 2 mm has left lateral gaze lungs clear cvs s1s2 rr abd soft ext no edema neuro unresponsive skin has some circular skin lesions on lowerextremities- ?KS CBC, BMP 07/11/17 05:50 07/11/17 05:50 Current Medications Generic Name Dose Route Start Last Admin Trade Name Freq PRN Reason Stop Dose Admin Acetaminophen 1,000 mg 07/10/17 22:00 07/10/17 22:30 Ofirmev Injection - IVPB 1,000 mg Q6H PRN Administration FEVER OR PAIN Dexamethasone Sodium Phosphate 10 mg 07/09/17 11:45 07/11/17 09:14 Decadron Injection - IVPUSH 10 mg Q6H-IV [facility] Administration Heparin Sodium (Porcine) 5,000 unit 07/08/17 15:30 07/10/17 13:43 Heparin - SQ Not Given TID PA[facility]INE Metronidazole 500 mg in 100 mls @ 100 mls/hr 07/08/17 10:00 07/11/17 09:15 Flagyl 500mg Premixed Ivpb - IVPB 100 mls/hr Q8H-IV [facility] Administration Ceftriaxone Sodium 2 gm in 100 mls @ 200 mls/hr 07/09/17 09:14 07/11/17 09:14 Rocephin 2gm Ivpb (Pre-Docked) IVPB 200 mls/hr DAILY [facility] Administration Propofol 1,000,000 mcg in 100 mls @ 2.807 mls/hr 07/10/17 14:00 07/11/17 07: 03 Diprivan - IVPB 65 mcg/kg/min TITR [facility] 36.486 mls/hr Protocol Administration 5 MCG/KG/MIN Pantoprazole Sodium 80 mg/ 100 mls @ 10 mls/hr 07/10/17 19:15 07/11/17 06:04 Sodium Chloride IVPB 10 mls/hr Q10H [facility] Administration 8 MG/HR Insulin Aspart 1 vial 07/07/17 14:30 07/11/17 06:04 Novolog Vial Sliding Scale - SQ 8 units Q4HPO [facility] Administration Protocol Labetalol HCl 10 mg 07/09/17 11:12 07/11/17 05:03 Normodyne Injection - IVPUSH 10 mg Q4H PRN Administration HYPERTENSION Metoprolol Tartrate 25 mg 07/07/17 15:30 07/11/17 09:15 Lopressor - PO 25 mg BID [facility] Administration Metoprolol Tartrate 5 mg 07/10/17 21:59 07/10/17 22:00 Lopressor Injection - IVPUSH 5 mg Q4H PRN Administration HYPERTENSION Impression 1. FLORECITA- in part prerenal 2. CKD 3. cardiac arrest 4. CHF 5. HIV 6. hypomagnesemia 7. anoxic brain injury 8. anemia 9. anion gap and non anion gap acidosis Plan to discuss GOC BUN in part from steroids start bicarb in fluids despite high BP continue antihypertensives MV
--- NOTE | 2017-07-11 11:25 | PN ---
Progress Note (short form) - Note Progress Note: CC: SOB/cardiac arrest. s: remains intubated/sedated, got prbcs overnight 2/2 anemia from likely ugib Current Medications Generic Name Dose Route Start Last Admin Trade Name Freq PRN Reason Stop Dose Admin Acetaminophen 1,000 mg 07/10/17 22:00 07/11/17 07:30 Ofirmev Injection - IVPB 1,000 mg Q6H PRN Administration FEVER OR PAIN Dexamethasone Sodium Phosphate 10 mg 07/09/17 11:45 07/11/17 09:14 Decadron Injection - IVPUSH 10 mg Q6H-IV PAULINE Administration Heparin Sodium (Porcine) 5,000 unit 07/08/17 15:30 07/10/17 13:43 Heparin - SQ Not Given TID PAULINE Metronidazole 500 mg in 100 mls @ 100 mls/hr 07/08/17 10:00 07/11/17 09:15 Flagyl 500mg Premixed Ivpb - IVPB 100 mls/hr Q8H-IV PAULINE Administration Ceftriaxone Sodium 2 gm in 100 mls @ 200 mls/hr 07/09/17 09:14 07/11/17 09:14 Rocephin 2gm Ivpb (Pre-Docked) IVPB 200 mls/hr DAILY PAULINE Administration Propofol 1,000,000 mcg in 100 mls @ 2.807 mls/hr 07/10/17 14:00 07/11/17 09: 16 Diprivan - IVPB 65 mcg/kg/min TITR PAULINE 36.486 mls/hr Protocol Administration 5 MCG/KG/MIN Pantoprazole Sodium 80 mg/ 100 mls @ 10 mls/hr 07/10/17 19:15 07/11/17 06:04 Sodium Chloride IVPB 10 mls/hr Q10H PAULINE Administration 8 MG/HR Insulin Aspart 1 vial 07/07/17 14:30 07/11/17 09:31 Novolog Vial Sliding Scale - SQ 8 units Q4HPO PAULINE Administration Protocol Labetalol HCl 10 mg 07/09/17 11:12 07/11/17 09:31 Normodyne Injection - IVPUSH 10 mg Q4H PRN Administration HYPERTENSION Metoprolol Tartrate 25 mg 07/07/17 15:30 07/11/17 09:15 Lopressor - PO 25 mg BID PAULINE Administration Metoprolol Tartrate 5 mg 07/10/17 21:59 07/10/17 22:00 Lopressor Injection - IVPUSH 5 mg Q4H PRN Administration HYPERTENSION Vital Signs Temp 99.1 F 07/11/17 10:00 Pulse 75 07/11/17 10:17 Resp 28 H 07/11/17 10:17 BP 136/77 07/11/17 10:00 Pulse Ox 100 07/11/17 10:20 Intake & Output 07/10/17 07/10/17 07/11/17 11:59 23:59 11:59 Intake Total 443 884.4 1126 Output Total 700 1800 1850 Balance -257 -915.6 -724 Weight 206 lb 4 oz 206 lb 2.115 oz Intake: IV 343 484.4 576 DIPRIVAN - 1,000,000 mcg 456 In 100 ml @ 5 MCG/KG/MIN 2.807 mls/hr IVPB TITR PAULINE Rx#:[id number] DIPRIVAN - 1,000,000 mcg 203 344.4 In 100 ml @ 5 MCG/KG/MIN 2.858 mls/hr IVPB TITR PAULINE Rx#:[id number] fentanyl 140 140 protonix gtt 120 IVPB 100 400 200 Oral 0 Packed Cells 350 Output: Gastric Drainage 700 150 Urine 700 1100 1700 Rocha 700 1100 1700 Other: Voiding Method Indwelling Catheter Indwelling Catheter Indwelling Catheter Bowel Movement Yes: 50ML VIA FLEXISEAL Weight Measurement Method Built in [facility] Built in [facility] Constitutional: Yes: Well Nourished, No Distress, intubated, sedated. Eyes: No: Sclera Icterus Respiratory: Yes: mechanical breath sounds (anteriorly (pt intubated)). No: Accessory Muscle Use, Rales, Wheezes Gastrointestinal: Yes: Normal Bowel Sounds. No: Distention, Hepatomegaly, Palpable Mass, Tenderness Cardiovascular: Yes: tachcyardic, Regular Rate and Rhythm JVD: No Heart Sounds: Yes: S1, S2. No: Gallop Murmur: No: Systolic Murmur, Diastolic Murmurs) Extremities: No: Cool (feet), Cyanosis Edema: No Integumentary: No: Jaundice Neurological: No: sedated Psychiatric: No: Agitated - Other Data Labs, Other Data: Laboratory Last Values WBC 14.3 K/mm3 (4.0-10.0) H 07/11/17 05:50 RBC 3.74 M/mm3 (4.00-5.60) L D 07/11/17 05:50 Hgb 10.6 GM/dL (11.7-16.9) L D 07/11/17 05:50 Hct 31.2 % (35.4-49) L D 07/11/17 05:50 MCV 83.4 fl (80-96) 07/11/17 05:50 MCH 28.2 pg (25.7-33.7) 07/11/17 05:50 MCHC 33.8 g/dl (32.0-35.9) 07/11/17 05:50 RDW 16.7 % (11.9-15.9) H 07/11/17 05:50 Plt Count 269 K/MM3 (134-434) 07/11/17 05:50 MPV 9.1 fl (7.5-11.1) 07/11/17 05:50 Total Counted 100 07/08/17 05:15 Neutrophils % 89.2 % (42.8-82.8) H 07/11/17 05:50 Neutrophils % (Manual) 77.0 % (42.8-82.8) 07/08/17 05:15 Band Neutrophils % 1.0 % 07/08/17 05:15 Lymphocytes % 6.0 % (8-40) L 07/11/17 05:50 Lymphocytes % (Manual) 17.0 % (8-40) D 07/08/17 05:15 Monocytes % 4.7 % (3.8-10.2) 07/11/17 05:50 Monocytes % (Manual) 5 % (3.8-10.2) 07/08/17 05:15 Eosinophils % 0.0 % (0-4.5) 07/11/17 05:50 Eosinophils % (Manual) 0.0 % (0-4.5) D 07/07/17 05:00 Basophils % 0.1 % (0-2.0) 07/11/17 05:50 Basophils % (Manual) 0.0 % (0-2.0) 07/07/17 05:00 Manual Slide Review No Result Required. 07/06/17 05:00 Platelet Estimate Adequate 07/07/17 05:00 Platelet Comment No clumping noted 07/07/17 05:00 PT with INR 13.30 SEC (9.98-11.88) H 07/06/17 05:00 INR 1.18 (0.82-1.09) H 07/06/17 05:00 PTT (Actin FS) 20.4 SECONDS (26.9-34.4) L 07/05/17 00:45 Anticoagulation Therapy Y 07/05/17 21:00 Puncture Site Y 07/10/17 23:15 Patient Temperature 101.3 07/08/17 09:49 ABG pH 7.31 (7.35-7.45) L 07/10/17 23:15 ABG pCO2 at Pt Temp 21.3 mmHg (35-45) L 07/10/17 23:15 ABG pO2 at Pt Temp 173.0 mmHg (80-100) H* 07/10/17 23:15 ABG HCO3 10.5 meq/L (22-26) L* 07/10/17 23:15 ABG O2 Sat (Measured) 97.3 % (90-98.9) 07/10/17 23:15 ABG O2 Content 13.8 % vol (15-22) L 07/10/17 23:15 ABG Base Excess -14.2 meq/l (-2-2) L* 07/10/17 23:15 Sorin Test Y 07/10/17 23:15 VBG pH 6.98 (7.32-7.42) L* 07/05/17 01:00 POC VBG pCO2 69.6 mmHg (38-52) H* 07/05/17 01:00 POC VBG pO2 49.8 mmHg (28-48) H 07/05/17 01:00 Mixed VBG HCO3 15.6 meq/L (19-25) L 07/05/17 01:00 Carboxyhemoglobin 0.2 gm% (0.5-2.0) L 07/05/17 06:00 Methemoglobin 1.0 % (0.4-1.5) 07/05/17 06:00 O2 Delivery Device Mech vent 07/08/17 09:49 Oxygen Flow Rate 40 07/10/17 23:15 Vent Mode A/c 07/08/17 09:49 Vent Rate 28 07/10/17 23:15 Mechanical Rate Espirit 07/08/17 09:49 PEEP 8.0 cmH2O 07/10/17 23:15 Pressure Support Vent 500 tidal volume 07/08/17 09:49 Sodium 142 mmol/L (136-145) 07/11/17 05:50 Potassium 3.1 mmol/L (3.5-5.1) L D 07/11/17 05:50 Chloride 113 mmol/L (98-107) H 07/11/17 05:50 Carbon Dioxide 12 mmol/L (21-32) L 07/11/17 05:50 Anion Gap 17 (8-16) H 07/11/17 05:50 BUN 97 mg/dL (7-18) H 07/11/17 05:50 Creatinine 4.8 mg/dL (0.7-1.3) H 07/11/17 05:50 Creat Clearance w eGFR 9.93 (>60) 07/10/17 05:50 POC Glucometer 280.10158 UNITS (80-120) 07/10/17 14:00 Random Glucose 337 mg/dL (74-106) H* 07/11/17 05:50 Lactic Acid 0.1 mmol/L (0.4-2.0) L 07/11/17 08:00 Calcium 6.4 mg/dL (8.5-10.1) L* 07/11/17 05:50 Phosphorus 6.7 mg/dL (2.5-4.9) H D 07/11/17 05:50 Magnesium 2.4 mg/dL (1.8-2.4) D 07/11/17 05:50 Total Bilirubin 0.4 mg/dL (0.2-1.0) 07/10/17 05:50 AST 27 U/L (15-37) D 07/10/17 05:50 ALT 14 U/L (12-78) 07/10/17 05:50 Alkaline Phosphatase 53 U/L (45-117) 07/10/17 05:50 Creatine Kinase 237 IU/L (39-308) 07/07/17 13:00 Creatine Kinase Index 0.5 % (0.0-5.0) 07/07/17 13:00 CK-MB (CK-2) 1.282 ng/mL (0.5-3.6) 07/07/17 13:00 Troponin I 1.09 ng/ml (0.00-0.05) H* 07/07/17 13:00 B-Natriuretic Peptide 46065.37 pg/ml (5-125) H 07/05/17 00:45 Total Protein 6.0 g/dl (6.4-8.2) L 07/10/17 05:50 Albumin 1.8 g/dl (3.4-5.0) L 07/10/17 05:50 Urine Color Ltyellow 07/05/17 02:10 Urine Appearance Slcloudy 07/05/17 02:10 Urine pH 6.0 (5.0-8.0) 07/05/17 02:10 Ur Specific [place] 1.016 (1.001-1.035) 07/05/17 02:10 Urine Protein 3+ (NEGATIVE) H 07/05/17 02:10 Urine Glucose (UA) 1+ (NEGATIVE) H 07/05/17 02:10 Urine Ketones Negative (NEGATIVE) 07/05/17 02:10 Urine Blood 1+ (NEGATIVE) H 07/05/17 02:10 Urine Nitrite Negative (NEGATIVE) 07/05/17 02:10 Urine Bilirubin Negative (NEGATIVE) 07/05/17 02:10 Urine Urobilinogen Negative mg/dL (0.2-1.0) 07/05/17 02:10 Ur Leukocyte Esterase Negative (NEGATIVE) 07/05/17 02:10 Urine WBC (Auto) 3 /hpf (3-5) 07/05/17 02:10 Urine RBC (Auto) 14 /hpf (0-3) 07/05/17 02:10 Hyaline Casts 1 /lpf 07/05/17 02:10 Urine Mucus Rare 07/05/17 02:10 Ur Random Sodium 57 MMOL/L 07/06/17 14:50 Ur Random Potassium 32.6 MMOL/L 07/06/17 14:50 Ur Random Chloride 43 MMOL/L 07/06/17 14:50 Ur Random Urea Nitrogn 380 mg/dL 07/06/17 14:50 Gastric Occult Blood Positive 07/10/17 16:45 Tobramycin Trough 3.1 ug/ml (0.0-2.0) H* 07/06/17 05:00 Random Vancomycin < 0.800 ug/ml 07/05/17 05:00 Beta-(1,3)-D-Glucan 41 pg/mL (<80) 07/05/17 08:05 Blood Type B POSITIVE 07/10/17 19:40 Antibody Screen Negative 07/10/17 19:20 Crossmatch See Detail 07/10/17 19:20 tele: sr EKG 07/07: sinus tach with pvc's. new difufes TWI. worse in precordial leads. prolonged qtc. cxr 07/11:clear lungs ECG #1: sinus tach, normal axis, +/- long QT (mild); no pathol q waves; borderline ischemic appearing ST depressions inferior leads and V6 (no old but this was not reported on 12/24 office ecg) #2: NSR, STs resolving ECG 07/07: MPI 05/26: no ischemia, EF 33% (global echo 06/2017: nl lv size. LV fn mod-sev reduced (global). nl rv size/fn. 1+ mac/mr/tr. rvsp 30-40. + pleural effusion. Echo 05/26 (): mod LVE, mild global LV hypo; nl RV; mild LAE; mild MR Echo 12/24: nl LV and RV, nl valves est cct 35 mins a/p: 56 yo smoker with h/o mild lv dysfunction, htn, hl, ckd, hiv, dm p/w progressive sob and subsequent PEA arrest with EMS (s/p resuscitation). acute hypoxic resp failure, acute on chronic syst CHF: -cxr clear today -resting echo 05/26 with mild LV dysfunction, ? worse (nuclear estimated EF 33%) , ? underlying CAD with balanced ischemia on nuclear--of note, ECG initially here with borderline ST changes for ischemia. ? diast chf component mixed in. -trop mildly elevated, now trending down. likely from demand. -received lasix drip 07/05 and 40mg iv 07/06 but now stopped due to worsening cr, cont prn for hypoxia -repeat echo here with worsened systolic function. would consider invasive ischemia eval (cath) if he were to make meaningful recovery -cont beta blockade. -limit qtc prolonging drugs when possible as qtc slightly long on ecg cardiac arrest (PEA): -sec to acute chf/hypoxia most likely -telem with stable rhythm (sinus) -cont monitoring, optimization of chf and acid-base status, as doing - neuro note reviewed: Pt was resuscitated per ACLS protocol for approximately 5 minutes according to note, receiving epi x 2, bicarb x 2. Per report, exam c/ w anoxic brain injury with only minimal brainstem activity at present - poor prognosis. FLORECITA on CKD: -baseline creat here 2.8 in 05/26. initially 2.4 on presentation to ER -suspect hypoperfusion/atn as cause, cr still elevated but gradually improving past few days -holding lasix -renal following HTN: -cont bb HIV/Hep C: -per ID team anemia, gib: -likely ugib, now on ppi gtt -hgb improved s/p prbcs
[2017-07-11] MEDS ORDERED: DEXTROSE 5%-WATER - 1,000 ML with SODIUM BICARBONATE 8.4% - 100 MEQ IV SCH (11:30)
[2017-07-11] MEDS: DEXTROSE 5%-WATER - 1,000 ML with SODIUM BICARBONATE 8.4% - 100 MEQ IV SCH (12:43)
[2017-07-11] MEDS: METOPROLOL TARTRATE 5 MG/5 ML VIAL IVPUSH PRN ×2 (15:34→22:13)
--- NOTE | 2017-07-11 21:57 | PN ---
Progress Note, Physician - Current Medication List Current Medications: Active Medications Acetaminophen (Ofirmev Injection -) 1,000 mg IVPB Q6H PRN PRN Reason: FEVER OR PAIN Last Admin: 07/11/17 07:30 Dose: 1,000 mg Dexamethasone Sodium Phosphate (Decadron Injection -) 10 mg IVPUSH Q6H-IV PAULINE Last Admin: 07/11/17 20:41 Dose: 10 mg Heparin Sodium (Porcine) (Heparin -) 5,000 unit SQ TID PAULINE Last Admin: 07/10/17 13:43 Dose: Not Given Metronidazole (Flagyl 500mg Premixed Ivpb -) 500 mg in 100 mls @ 100 mls/hr IVPB Q8H-IV PAULINE Last Admin: 07/11/17 17:17 Dose: 100 mls/hr Ceftriaxone Sodium (Rocephin 2gm Ivpb (Pre-Docked)) 2 gm in 100 mls @ 200 mls/ hr IVPB DAILY PAULINE Last Admin: 07/11/17 09:14 Dose: 200 mls/hr Propofol (Diprivan -) 1,000,000 mcg in 100 mls @ 2.807 mls/hr IVPB TITR PAULINE; 5 MCG/KG/MIN PRN Reason: Protocol Last Admin: 07/11/17 14:00 Dose: 65 mcg/kg/min, 36.486 mls/hr Pantoprazole Sodium 80 mg/ (Sodium Chloride) 100 mls @ 10 mls/hr IVPB Q10H PAULINE PRN Reason: 8 MG/HR Last Admin: 07/11/17 15:15 Dose: Not Given Sodium Bicarbonate 100 meq/ (Dextrose) 1,100 mls @ 50 mls/hr IV Q22H PAULINE Last Admin: 07/11/17 12:43 Dose: 50 mls/hr Insulin Aspart (Novolog Vial Sliding Scale -) 1 vial SQ Q4HPO PAULINE PRN Reason: Protocol Last Admin: 07/11/17 17:29 Dose: 8 units Labetalol HCl (Normodyne Injection -) 10 mg IVPUSH Q4H PRN PRN Reason: HYPERTENSION Last Admin: 07/11/17 18:07 Dose: 10 mg Metoprolol Tartrate (Lopressor -) 25 mg PO BID PAULINE Last Admin: 07/11/17 09:15 Dose: 25 mg Metoprolol Tartrate (Lopressor Injection -) 5 mg IVPUSH Q4H PRN PRN Reason: HYPERTENSION Last Admin: 07/11/17 15:34 Dose: 5 mg - Objective Vital Signs: Vital Signs Temperature 100.3 F H 07/11/17 18:00 Pulse Rate 92 H 07/11/17 18:00 Respiratory Rate 30 H 07/11/17 19:49 Blood Pressure 203/92 07/11/17 18:00 O2 Sat by Pulse Oximetry (%) 100 07/11/17 19:49 Labs: CBC, BMP 07/11/17 05:50 07/11/17 05:50 INR, PTT INR 1.18 (0.82-1.09) H 07/06/17 05:00 Problem List - Problems (1) Respiratory failure Code(s): J96.90 - RESPIRATORY FAILURE, UNSP, UNSP W HYPOXIA OR HYPERCAPNIA (2) Cardiopulmonary arrest with successful resuscitation Code(s): I46.9 - CARDIAC ARREST, CAUSE UNSPECIFIED (3) Acute on chronic diastolic CHF (congestive heart failure) Code(s): I50.33 - ACUTE ON CHRONIC DIASTOLIC (CONGESTIVE) HEART FAILURE (4) Uncontrolled diabetes mellitus Code(s): E11.65 - TYPE 2 DIABETES MELLITUS WITH HYPERGLYCEMIA
[2017-07-12] MEDS: PANTOPRAZOLE SODIUM 80 MG in SODIUM CHLORIDE 100 ML IVPB SCH ×2 (02:10→15:06)
[2017-07-12] MEDS: METRONIDAZOLE 500 MG PREMIXED 500 MG/100 ML MG IVPB SCH ×3 (02:15→17:00)
[2017-07-12] MEDS: DEXAMETHASONE SOD PHOSPHATE 10 MG/1 ML VIAL IVPUSH SCH ×4 (02:16→20:30)
[2017-07-12] MEDS: INSULIN SLIDING SCALE (NOVOLOG) 1 VIAL SQ SCH ×6 (02:26→21:58)
[2017-07-12] MEDS: METOPROLOL TARTRATE 5 MG/5 ML VIAL IVPUSH PRN ×2 (03:27→10:35)
[2017-07-12 05:48] LABS: MCH 28.6 pg (25.7-33.7); MCHC 34.2 g/dl (32.0-35.9); MEAN CELL VOLUME 83.6 fl (80-96); MEAN PLT VOLUME 8.8 fl (7.5-11.1); PLATELET COUNT 382 K/MM3 (134-434); RDW 16.6 % (11.9-15.9); WHITE BLOOD COUNT 16.3 K/mm3 (4.0-10.0)
[2017-07-12 06:14] LABS: ALBUMIN 2.2 g/dl (3.4-5.0); ANION GAP 17 (8-16); BILIRUBIN,DIRECT 0.4 mg/dL (0.0-0.2); BILIRUBIN,TOTAL 0.9 mg/dL (0.2-1.0); CALCIUM 7.4 mg/dL (8.5-10.1); CO2 15 mmol/L (21-32); CREATININE 4.8 mg/dL (0.7-1.3); PHOSPHOROUS 6.8 mg/dL (2.5-4.9); TOT PROT 6.8 g/dl (6.4-8.2)
[2017-07-12 06:15] LABS: ALK PHOS 62 U/L (45-117)
[2017-07-12 06:20] LABS: MAGNESIUM 2.5 mg/dL (1.8-2.4); SGOT/AST 31 U/L (15-37); SGPT/ALT 25 U/L (12-78)
[2017-07-12 06:22] LABS: GLUCOSE,RANDOM 353 mg/dL (74-106)
--- NOTE | 2017-07-12 07:26 | PN ---
Progress Note, Physician Chief Complaint: ID Severe anoxic brain injury post cardiac arrest on the vent Day 7 antibiotics for Pneumonia possible aspiration Spiking fevers now 101 and above - Current Medication List Current Medications: Active Medications Acetaminophen (Ofirmev Injection -) 1,000 mg IVPB Q6H PRN PRN Reason: FEVER OR PAIN Last Admin: 07/11/17 22:19 Dose: 1,000 mg Dexamethasone Sodium Phosphate (Decadron Injection -) 10 mg IVPUSH Q6H-IV PAULINE Last Admin: 07/12/17 02:16 Dose: 10 mg Heparin Sodium (Porcine) (Heparin -) 5,000 unit SQ TID PAULINE Last Admin: 07/10/17 13:43 Dose: Not Given Metronidazole (Flagyl 500mg Premixed Ivpb -) 500 mg in 100 mls @ 100 mls/hr IVPB Q8H-IV PAULINE Last Admin: 07/12/17 02:15 Dose: 100 mls/hr Ceftriaxone Sodium (Rocephin 2gm Ivpb (Pre-Docked)) 2 gm in 100 mls @ 200 mls/ hr IVPB DAILY [facility] [place] Last Admin: 07/11/17 09:14 Dose: 200 mls/hr Propofol (Diprivan -) 1,000,000 mcg in 100 mls @ 2.807 mls/hr IVPB TITR PAULINE; 5 MCG/KG/MIN PRN Reason: Protocol Last Admin: 07/11/17 22:18 Dose: 65 mcg/kg/min, 36.486 mls/hr Pantoprazole Sodium 80 mg/ (Sodium Chloride) 100 mls @ 10 mls/hr IVPB Q10H PAULINE PRN Reason: 8 MG/HR Last Admin: 07/12/17 02:10 Dose: Not Given Sodium Bicarbonate 100 meq/ (Dextrose) 1,100 mls @ 50 mls/hr IV Q22H PAULINE Last Admin: 07/11/17 12:43 Dose: 50 mls/hr Insulin Aspart (Novolog Vial Sliding Scale -) 1 vial SQ Q4HPO PAULINE PRN Reason: Protocol Last Admin: 07/12/17 05:50 Dose: 6 units Labetalol HCl (Normodyne Injection -) 10 mg IVPUSH Q4H PRN PRN Reason: HYPERTENSION Last Admin: 07/11/17 23:00 Dose: 10 mg Metoprolol Tartrate (Lopressor -) 25 mg PO BID PAULINE Last Admin: 07/11/17 22:32 Dose: Not Given Metoprolol Tartrate (Lopressor Injection -) 5 mg IVPUSH Q4H PRN PRN Reason: HYPERTENSION Last Admin: 07/12/17 03:27 Dose: 5 mg - Objective Vital Signs: Vital Signs Temperature 101 F H 07/12/17 05:52 Pulse Rate 88 07/12/17 05:52 Respiratory Rate 35 H 07/12/17 05:52 Blood Pressure 156/79 07/12/17 05:52 O2 Sat by Pulse Oximetry (%) 100 07/11/17 19:49 Cardiovascular: Yes: Tachycardia, S1, S2. No: Murmur Respiratory: Yes: WNL, Regular, CTA Bilaterally Gastrointestinal: Yes: WNL, Normal Bowel Sounds, Soft. No: Tenderness Edema: No Labs: CBC, BMP 07/12/17 05:35 07/12/17 05:35 INR, PTT INR 1.18 (0.82-1.09) H 07/06/17 05:00 Problem List - Problems (1) Cardiopulmonary arrest with successful resuscitation Code(s): I46.9 - CARDIAC ARREST, CAUSE UNSPECIFIED (2) Uncontrolled diabetes mellitus Code(s): E11.65 - TYPE 2 DIABETES MELLITUS WITH HYPERGLYCEMIA (3) Sepsis Code(s): A41.9 - SEPSIS, UNSPECIFIED ORGANISM (4) Chronic kidney disease Code(s): N18.9 - CHRONIC KIDNEY DISEASE, UNSPECIFIED (5) Hypertension Code(s): I10 - ESSENTIAL (PRIMARY) HYPERTENSION Assessment/Plan Microbiology 07/05/17 21:10 Sputum - Endotrachea Suction/Ventilator Gram Stain - Final 07/05/17 21:10 Sputum - Endotrachea Suction/Ventilator Sputum Culture - Final Staphylococcus Aureus Strep Agalactiae Group B 07/05/17 08:18 Blood - Peripheral Venous Blood Culture - Final NO GROWTH AFTER 5 DAYS INCUBATION 07/05/17 08:05 Blood - Peripheral Venous Blood Culture - Final NO GROWTH AFTER 5 DAYS INCUBATION 07/05/17 02:10 Urine - Urine - Catheterized Urine Culture - Final NO GROWTH OBTAINED Assessment Cardiac arrest Anoxic brain injury CT effacement of sulci almost completely HIV infection HPTN Diabetes History of Hepatitis C treated Treatment for Pneumonia Fever now ? secondary infection Acute renal failure Plan Repeat cultures Change therapy to Vancomycin and Zosyn Stop Ceftriaxone Critical care time spent 35 minutes Whitman MD
[2017-07-12] MEDS ORDERED: PIPERACILLIN/TAZOB 2.25 GM 2.25 GM/50 ML BAG IVPB SCH (07:30)
[2017-07-12] MEDS ORDERED: VANCOMYCIN 1,500 MG in DEXTROSE 5%-WATER - 500 ML IVPB ONE (08:30)
--- NOTE | 2017-07-12 08:36 | PN ---
Progress Note (short form) - Note Progress Note: PULM/CCM Pt seen & axamined in the ICU uncon/unresp post cardiac arrest on the vent, pupils dilated, hypertensive, spiking fevers, all c/w severe anoxic brain injury c/c/b recent GIB. Active Medications Acetaminophen (Ofirmev Injection -) 1,000 mg IVPB Q6H PRN PRN Reason: FEVER OR PAIN Last Admin: 07/11/17 22:19 Dose: 1,000 mg Dexamethasone Sodium Phosphate (Decadron Injection -) 10 mg IVPUSH Q6H-IV PAULINE Last Admin: 07/12/17 02:16 Dose: 10 mg Heparin Sodium (Porcine) (Heparin -) 5,000 unit SQ TID PAULINE Last Admin: 07/10/17 13:43 Dose: Not Given Metronidazole (Flagyl 500mg Premixed Ivpb -) 500 mg in 100 mls @ 100 mls/hr IVPB Q8H-IV PAULINE Last Admin: 07/12/17 02:15 Dose: 100 mls/hr Propofol (Diprivan -) 1,000,000 mcg in 100 mls @ 2.807 mls/hr IVPB TITR PAULINE; 5 MCG/KG/MIN PRN Reason: Protocol Last Admin: 07/11/17 22:18 Dose: 65 mcg/kg/min, 36.486 mls/hr Pantoprazole Sodium 80 mg/ (Sodium Chloride) 100 mls @ 10 mls/hr IVPB Q10H PAULINE PRN Reason: 8 MG/HR Last Admin: 07/12/17 02:10 Dose: Not Given Sodium Bicarbonate 100 meq/ (Dextrose) 1,100 mls @ 50 mls/hr IV Q22H PAULINE Last Admin: 07/11/17 12:43 Dose: 50 mls/hr Vancomycin HCl 1,500 mg/ (Dextrose) 500 mls @ 250 mls/hr IVPB ONCE ONE PRN Reason: Protocol Stop: 07/12/17 10:29 Piperacillin Sod/Tazobactam (Sod 2.25 gm/ Dextrose) 50 mls @ 100 mls/hr IVPB BID PAULINE Insulin Aspart (Novolog Vial Sliding Scale -) 1 vial SQ Q4HPO PAULINE PRN Reason: Protocol Last Admin: 07/12/17 05:50 Dose: 6 units Labetalol HCl (Normodyne Injection -) 10 mg IVPUSH Q4H PRN PRN Reason: HYPERTENSION Last Admin: 07/11/17 23:00 Dose: 10 mg Metoprolol Tartrate (Lopressor -) 25 mg PO BID PAULINE Last Admin: 07/11/17 22:32 Dose: Not Given Metoprolol Tartrate (Lopressor Injection -) 5 mg IVPUSH Q4H PRN PRN Reason: HYPERTENSION Last Admin: 07/12/17 03:27 Dose: 5 mg V/S Period Temp Pulse Resp BP Sys/[place] Pulse Ox Last 24 Hr 98.8 F-101.7 F 73-100 27-38 136-209/63-103 100-100 I's & O's 07/09/17 07/10/17 07/11/17 07/12/17 23:59 23:59 23:59 23:59 Intake Total 2560.8 1327.4 2482.8 1328 Output Total 3150 2500 4150 1100 Balance -589.2 -1172.6 -1667.2 228 Weight 94.914 kg 93.553 kg 93.5 kg 91.881 kg GEN: Middle aged man, uncon/unresp on the vent HEENT: Pupils fixed & dilated @ 6mm, an-icteric, ETT PULM: Mechanically Ventilated, scattered ronchi CV: nml S1 , S2, RR, unable to appreciate any G/M/R ABD: hypoactive BS, S/S N/T N/D X4Q EXT: + Pulses, WWP X4, global edema NEURO: Uncon/Unresp, no w/ drawl to pain, corneal intact, + doll c/w severe anoxic brain injury CBC, BMP 07/12/17 05:35 07/12/17 05:35 MICRO 07/05/17 21:10 Sputum - Endotrachea Suction/Ventilator Gram Stain - Final 07/05/17 21:10 Sputum - Endotrachea Suction/Ventilator Sputum Culture - Final Staphylococcus Aureus Strep Agalactiae Group B 07/05/17 08:18 Blood - Peripheral Venous Blood Culture - Final NO GROWTH AFTER 5 DAYS INCUBATION 07/05/17 08:05 Blood - Peripheral Venous Blood Culture - Final NO GROWTH AFTER 5 DAYS INCUBATION 07/05/17 13:30 Stool Shiga Toxin Test - Final 07/05/17 13:30 Stool Clostridium difficile (PCR) - Final 07/05/17 08:35 Rectal Swab VRE Culture - Final NO VREF ISOLATED 07/05/17 13:30 Nares - Left Nares MRSA Screen - Final NO MRSA ISOLATED 07/05/17 13:30 Stool Cryptosporidium Antigen - Final 07/05/17 13:30 Stool Giardia Antigen (RACHEL) - Final 07/05/17 02:10 Urine - Urine - Catheterized Urine Culture - Final NO GROWTH OBTAINED 07/05/17 13:30 Urine - Urine Rocha Legionella Antigen - Final 07/05/17 13:30 Urine - Urine Rocha Streptococcus pneumoniae Antigen (M - Final IMAGING: CXR 07/12: PENDING ASSESS: This is a 56 y/o man w/ HTN, HL, DM, CKD, & HIV/AIDS on HAART s/p cardiac arrest (m/l 2/2 flash pulm edema +/- pna) now uncon/unresp w/ pupils dilated, hypertensive, & spiking fevers, all c/w severe anoxic brain injury c/b GIB. PLAN: -Neuro status checks, off sedation as much as possible, (however, multiple confounders for prognostication) -Repeat NCHCT (variable Pupil size c/f herniation) -Worsening acidosis despite down trending Cr -Trend lactate -On PPI gtt for hgb drop and coffee ground via NG, would not pursue EGD, transfuse as necessary (Hgb < 7) -BD TX -ABX per ID -Monitor off Lasix, Trend Cr ,currently downtrending -SCDs -GOC discussion ongoing [facility] ICU PULM/CCM [id number] Problem List - Problems (1) Cardiopulmonary arrest with successful resuscitation Code(s): I46.9 - CARDIAC ARREST, CAUSE UNSPECIFIED (2) CHF (congestive heart failure) Code(s): I50.9 - HEART FAILURE, UNSPECIFIED Qualifiers: Congestive heart failure type: unspecified congestive heart failure type Congestive heart failure chronicity: unspecified congestive heart failure chronicity Qualified Code(s): I50.9 - Heart failure, unspecified (3) Pneumonia Code(s): J18.9 - PNEUMONIA, UNSPECIFIED ORGANISM (4) Respiratory failure Code(s): J96.90 - RESPIRATORY FAILURE, UNSP, UNSP W HYPOXIA OR HYPERCAPNIA
[2017-07-12] MEDS: LABETALOL HCL 5 MG/1 ML (100MG/20 ML VIAL) IVPUSH PRN ×2 (10:06→14:59)
[2017-07-12] MEDS: DEXTROSE 5%-WATER - 1,000 ML with SODIUM BICARBONATE 8.4% - 100 MEQ IV SCH (10:12)
[2017-07-12] MEDS: PIPERACILLIN/TAZOB 2.25 GM 2.25 GM in DEXTROSE 5%-WATER - 50 ML IVPB SCH (10:18)
[2017-07-12] MEDS: METOPROLOL TARTRATE 25 MG TABLET (FP) PO SCH ×3 (10:19→22:00)
[2017-07-12] MEDS: ACETAMINOPHEN 1000 MG/100 ML VIAL (NON FORMULARY) IVPB PRN (10:37)
[2017-07-12] MEDS ORDERED: INSULIN (NOVOLOG) ASPART 100 UNITS/ML 10ML VIAL ONE (10:41)
--- NOTE | 2017-07-12 10:46 | PN ---
Progress Note (short form) - Note Progress Note: RENAL Pt is known to me from visits to my office He is in icu s/p cardiac arrest tachypneic unresponsive Last Vital Signs Temp Pulse Resp BP Pulse Ox 101 F H 103 H 35 H 204/100 100 07/12/17 05:52 07/12/17 10:35 07/12/17 07:33 07/12/17 10:35 07/11/17 19:49 has disconjugate gaze laterally lungs clear cvs s1s2 rr abd soft ext no edema neuro unresponsive skin has some circular skin lesions on lower extremities Current Medications Generic Name Dose Route Start Last Admin Trade Name Freq PRN Reason Stop Dose Admin Dexamethasone Sodium Phosphate 10 mg 07/09/17 11:45 07/12/17 10:10 Decadron Injection - IVPUSH 10 mg Q6H-IV PAULINE Administration Heparin Sodium (Porcine) 5,000 unit 07/08/17 15:30 07/10/17 13:43 Heparin - SQ Not Given TID PAULINE Metronidazole 500 mg in 100 mls @ 100 mls/hr 07/08/17 10:00 07/12/17 10:05 Flagyl 500mg Premixed Ivpb - IVPB 100 mls/hr Q8H-IV PAULINE Administration Propofol 1,000,000 mcg in 100 mls @ 2.807 mls/hr 07/10/17 14:00 07/11/17 22: 18 Diprivan - IVPB 65 mcg/kg/min TITR PAULINE 36.486 mls/hr Protocol Administration 5 MCG/KG/MIN Pantoprazole Sodium 80 mg/ 100 mls @ 10 mls/hr 07/10/17 19:15 07/12/17 02:10 Sodium Chloride IVPB Not Given Q10H PAULINE 8 MG/HR Sodium Bicarbonate 100 meq/ 1,100 mls @ 50 mls/hr 07/11/17 11:30 07/12/17 10: 12 Dextrose IV 50 mls/hr Q22H PAULINE Administration Piperacillin Sod/Tazobactam 50 mls @ 100 mls/hr 07/12/17 10:00 07/12/17 10:18 Sod 2.25 gm/ Dextrose IVPB 100 mls/hr BID PAULINE Administration Insulin Aspart 1 vial 07/07/17 14:30 07/12/17 10:28 Novolog Vial Sliding Scale - SQ 6 units Q4HPO PAULINE Administration Protocol Labetalol HCl 10 mg 07/09/17 11:12 07/12/17 10:06 Normodyne Injection - IVPUSH 10 mg Q4H PRN Administration HYPERTENSION Metoprolol Tartrate 25 mg 07/07/17 15:30 07/12/17 10:32 Lopressor - PO Not Given BID PAULINE Metoprolol Tartrate 5 mg 07/10/17 21:59 07/12/17 10:35 Lopressor Injection - IVPUSH 5 mg Q4H PRN Administration HYPERTENSION CBC, BMP 07/12/17 05:35 07/12/17 05:35 Impression 1. FLORECITA- in part prerenal 2. CKD 3. cardiac arrest 4. CHF 5. HIV 6. hypomagnesemia 7. anoxic brain injury 8. anemia 9. anion gap and non anion gap acidosis- lactic acidosis from propofol? Plan to discuss GOC BUN in part from steroids continue bicarb continue antihypertensives- permissive hypertension MV
--- NOTE | 2017-07-12 11:36 | PN ---
Progress Note (short form) - Note Progress Note: CC: SOB/cardiac arrest. s: remains intubated/sedated, now with agonal breathing on vent Current Medications Generic Name Dose Route Start Last Admin Trade Name Luis Fernando PRN Reason Stop Dose Admin Dexamethasone Sodium Phosphate 10 mg 07/09/17 11:45 07/12/17 10:10 Decadron Injection - IVPUSH 10 mg Q6H-IV PAULINE Administration Heparin Sodium (Porcine) 5,000 unit 07/08/17 15:30 07/10/17 13:43 Heparin - SQ Not Given TID PAULINE Metronidazole 500 mg in 100 mls @ 100 mls/hr 07/08/17 10:00 07/12/17 10:05 Flagyl 500mg Premixed Ivpb - IVPB 100 mls/hr Q8H-IV PA[facility]INE Administration Propofol 1,000,000 mcg in 100 mls @ 2.807 mls/hr 07/10/17 14:00 07/11/17 22: 18 Diprivan - IVPB 65 mcg/kg/min TITR PAULINE 36.486 mls/hr Protocol Administration 5 MCG/KG/MIN Pantoprazole Sodium 80 mg/ 100 mls @ 10 mls/hr 07/10/17 19:15 07/12/17 02:10 Sodium Chloride IVPB Not Given Q10H PAULINE 8 MG/HR Sodium Bicarbonate 100 meq/ 1,100 mls @ 50 mls/hr 07/11/17 11:30 07/12/17 10: 12 Dextrose IV 50 mls/hr Q22H PAULINE Administration Piperacillin Sod/Tazobactam 50 mls @ 100 mls/hr 07/12/17 10:00 07/12/17 10:18 Sod 2.25 gm/ Dextrose IVPB 100 mls/hr BID PAULINE Administration Insulin Aspart 1 vial 07/07/17 14:30 07/12/17 10:28 Novolog Vial Sliding Scale - SQ 6 units Q4HPO PAULINE Administration Protocol Labetalol HCl 10 mg 07/09/17 11:12 07/12/17 10:06 Normodyne Injection - IVPUSH 10 mg Q4H PRN Administration HYPERTENSION Metoprolol Tartrate 25 mg 07/07/17 15:30 07/12/17 10:32 Lopressor - PO Not Given BID PAULINE Metoprolol Tartrate 5 mg 07/10/17 21:59 07/12/17 10:35 Lopressor Injection - IVPUSH 5 mg Q4H PRN Administration HYPERTENSION Vital Signs Temp 101 F H 07/12/17 05:52 Pulse 103 H 07/12/17 10:35 Resp 39 H 07/12/17 10:10 BP 204/100 07/12/17 10:35 Pulse Ox 100 07/12/17 11:21 Intake & Output 07/11/17 07/11/17 07/12/17 11:59 23:59 11:59 Intake Total 1126 1356.8 1328 Output Total 1850 2300 1100 Balance -724 -943.2 228 Weight 206 lb 2.115 oz 202 lb 9 oz Intake: IV 576 856.8 1131 D5w - 1,000 ml @ 50 mls/ 300 538 hr IV Q20H PAULINE with Sodium Bicarbonate 8.4% - 100 Meq Rx#:[id number] DIPRIVAN - 1,000,000 mcg 456 436.8 489 In 100 ml @ 5 MCG/KG/MIN 2.807 mls/hr IVPB TITR PAULINE Rx#:[id number] fentanyl 0 protonix gtt 120 120 104 IVPB 200 500 197 Oral 0 Packed Cells 350 Output: Gastric Drainage 150 100 300 Urine 1700 2200 800 Rocha 1700 2200 800 Other: Voiding Method Indwelling Catheter Indwelling Catheter Bowel Movement Yes: FLEXISEAL 100ML Yes: flexiseal Weight Measurement Method Built in [employer] Built in [employer] Constitutional: Yes: Well Nourished, No Distress, intubated, sedated. Eyes: No: Sclera Icterus Respiratory: Yes: mechanical breath sounds (anteriorly (pt intubated)). No: Accessory Muscle Use, Rales, Wheezes Gastrointestinal: Yes: Normal Bowel Sounds. No: Distention, Hepatomegaly, Palpable Mass, Tenderness Cardiovascular: Yes: tachcyardic, Regular Rate and Rhythm JVD: No Heart Sounds: Yes: S1, S2. No: Gallop Murmur: No: Systolic Murmur, Diastolic Murmurs) Extremities: No: Cool (feet), Cyanosis Edema: No Integumentary: No: Jaundice Neurological: No: sedated Psychiatric: No: Agitated - Other Data Labs, Other Data: Laboratory Last Values WBC 16.3 K/mm3 (4.0-10.0) H 07/12/17 05:35 RBC 4.16 M/mm3 (4.00-5.60) 07/12/17 05:35 Hgb 11.9 GM/dL (11.7-16.9) D 07/12/17 05:35 Hct 34.8 % (35.4-49) L 07/12/17 05:35 MCV 83.6 fl (80-96) 07/12/17 05:35 MCH 28.6 pg (25.7-33.7) 07/12/17 05:35 MCHC 34.2 g/dl (32.0-35.9) 07/12/17 05:35 RDW 16.6 % (11.9-15.9) H 07/12/17 05:35 Plt Count 382 K/MM3 (134-434) D 07/12/17 05:35 MPV 8.8 fl (7.5-11.1) 07/12/17 05:35 Total Counted 100 07/08/17 05:15 Neutrophils % 89.2 % (42.8-82.8) H 07/11/17 05:50 Neutrophils % (Manual) 77.0 % (42.8-82.8) 07/08/17 05:15 Band Neutrophils % 1.0 % 07/08/17 05:15 Lymphocytes % 6.0 % (8-40) L 07/11/17 05:50 Lymphocytes % (Manual) 17.0 % (8-40) D 07/08/17 05:15 Monocytes % 4.7 % (3.8-10.2) 07/11/17 05:50 Monocytes % (Manual) 5 % (3.8-10.2) 07/08/17 05:15 Eosinophils % 0.0 % (0-4.5) 07/11/17 05:50 Eosinophils % (Manual) 0.0 % (0-4.5) D 07/07/17 05:00 Basophils % 0.1 % (0-2.0) 07/11/17 05:50 Basophils % (Manual) 0.0 % (0-2.0) 07/07/17 05:00 Manual Slide Review No Result Required. 07/06/17 05:00 Platelet Estimate Adequate 07/07/17 05:00 Platelet Comment No clumping noted 07/07/17 05:00 PT with INR 13.30 SEC (9.98-11.88) H 07/06/17 05:00 INR 1.18 (0.82-1.09) H 07/06/17 05:00 PTT (Actin FS) 20.4 SECONDS (26.9-34.4) L 07/05/17 00:45 Anticoagulation Therapy Y 07/05/17 21:00 Puncture Site Y 07/10/17 23:15 Patient Temperature 101.3 07/08/17 09:49 ABG pH 7.31 (7.35-7.45) L 07/10/17 23:15 ABG pCO2 at Pt Temp 21.3 mmHg (35-45) L 07/10/17 23:15 ABG pO2 at Pt Temp 173.0 mmHg (80-100) H* 07/10/17 23:15 ABG HCO3 10.5 meq/L (22-26) L* 07/10/17 23:15 ABG O2 Sat (Measured) 97.3 % (90-98.9) 07/10/17 23:15 ABG O2 Content 13.8 % vol (15-22) L 07/10/17 23:15 ABG Base Excess -14.2 meq/l (-2-2) L* 07/10/17 23:15 Sorin Test Y 07/10/17 23:15 VBG pH 6.98 (7.32-7.42) L* 07/05/17 01:00 POC VBG pCO2 69.6 mmHg (38-52) H* 07/05/17 01:00 POC VBG pO2 49.8 mmHg (28-48) H 07/05/17 01:00 Mixed VBG HCO3 15.6 meq/L (19-25) L 07/05/17 01:00 Carboxyhemoglobin 0.2 gm% (0.5-2.0) L 07/05/17 06:00 Methemoglobin 1.0 % (0.4-1.5) 07/05/17 06:00 O2 Delivery Device Mech vent 07/08/17 09:49 Oxygen Flow Rate 40 07/10/17 23:15 Vent Mode A/c 07/08/17 09:49 Vent Rate 28 07/10/17 23:15 Mechanical Rate Espirit 07/08/17 09:49 PEEP 8.0 cmH2O 07/10/17 23:15 Pressure Support Vent 500 tidal volume 07/08/17 09:49 Sodium 141 mmol/L (136-145) 07/12/17 05:35 Potassium 3.5 mmol/L (3.5-5.1) 07/12/17 05:35 Chloride 109 mmol/L (98-107) H 07/12/17 05:35 Carbon Dioxide 15 mmol/L (21-32) L D 07/12/17 05:35 Anion Gap 17 (8-16) H 07/12/17 05:35 BUN 98 mg/dL (7-18) H 07/12/17 05:35 Creatinine 4.8 mg/dL (0.7-1.3) H 07/12/17 05:35 Creat Clearance w eGFR 12.60 (>60) 07/12/17 05:35 POC Glucometer 354.12665 UNITS (80-120) 07/11/17 22:27 Random Glucose 353 mg/dL (74-106) H* 07/12/17 05:35 Lactic Acid 0.1 mmol/L (0.4-2.0) L 07/11/17 08:00 Calcium 7.4 mg/dL (8.5-10.1) L 07/12/17 05:35 Phosphorus 6.8 mg/dL (2.5-4.9) H 07/12/17 05:35 Magnesium 2.5 mg/dL (1.8-2.4) H 07/12/17 05:35 Total Bilirubin 0.9 mg/dL (0.2-1.0) D 07/12/17 05:35 Direct Bilirubin 0.4 mg/dL (0.0-0.2) H D 07/12/17 05:35 AST 31 U/L (15-37) 07/12/17 05:35 ALT 25 U/L (12-78) D 07/12/17 05:35 Alkaline Phosphatase 62 U/L (45-117) 07/12/17 05:35 Creatine Kinase 237 IU/L (39-308) 07/07/17 13:00 Creatine Kinase Index 0.5 % (0.0-5.0) 07/07/17 13:00 CK-MB (CK-2) 1.282 ng/mL (0.5-3.6) 07/07/17 13:00 Troponin I 1.09 ng/ml (0.00-0.05) H* 07/07/17 13:00 B-Natriuretic Peptide 63826.37 pg/ml (5-125) H 07/05/17 00:45 Total Protein 6.8 g/dl (6.4-8.2) 07/12/17 05:35 Albumin 2.2 g/dl (3.4-5.0) L D 07/12/17 05:35 Urine Color Ltyellow 07/05/17 02:10 Urine Appearance Slcloudy 07/05/17 02:10 Urine pH 6.0 (5.0-8.0) 07/05/17 02:10 Ur Specific [place] 1.016 (1.001-1.035) 07/05/17 02:10 Urine Protein 3+ (NEGATIVE) H 07/05/17 02:10 Urine Glucose (UA) 1+ (NEGATIVE) H 07/05/17 02:10 Urine Ketones Negative (NEGATIVE) 07/05/17 02:10 Urine Blood 1+ (NEGATIVE) H 07/05/17 02:10 Urine Nitrite Negative (NEGATIVE) 07/05/17 02:10 Urine Bilirubin Negative (NEGATIVE) 07/05/17 02:10 Urine Urobilinogen Negative mg/dL (0.2-1.0) 07/05/17 02:10 Ur Leukocyte Esterase Negative (NEGATIVE) 07/05/17 02:10 Urine WBC (Auto) 3 /hpf (3-5) 07/05/17 02:10 Urine RBC (Auto) 14 /hpf (0-3) 07/05/17 02:10 Hyaline Casts 1 /lpf 07/05/17 02:10 Urine Mucus Rare 07/05/17 02:10 Ur Random Sodium 57 MMOL/L 07/06/17 14:50 Ur Random Potassium 32.6 MMOL/L 07/06/17 14:50 Ur Random Chloride 43 MMOL/L 07/06/17 14:50 Ur Random Urea Nitrogn 380 mg/dL 07/06/17 14:50 Gastric Occult Blood Positive 07/10/17 16:45 Tobramycin Trough 3.1 ug/ml (0.0-2.0) H* 11/27/17 05:00 Random Vancomycin < 0.800 ug/ml 07/05/17 05:00 Beta-(1,3)-D-Glucan 41 pg/mL (<80) 07/05/17 08:05 Blood Type B POSITIVE 07/10/17 19:40 Antibody Screen Negative 07/10/17 19:20 Crossmatch See Detail 07/10/17 19:20 tele: sr/st EKG 07/07: sinus tach with pvc's. new difufes TWI. worse in precordial leads. prolonged qtc. cxr 07/12:no chf ECG #1: sinus tach, normal axis, +/- long QT (mild); no pathol q waves; borderline ischemic appearing ST depressions inferior leads and V6 (no old but this was not reported on 12/24 office ecg) #2: NSR, STs resolving ECG 07/07: MPI 05/26: no ischemia, EF 33% (global echo 06/2017: nl lv size. LV fn mod-sev reduced (global). nl rv size/fn. 1+ mac/mr/tr. rvsp 30-40. + pleural effusion. Echo 05/26 (): mod LVE, mild global LV hypo; nl RV; mild LAE; mild MR Echo 12/24: nl LV and RV, nl valves est cct 35 mins a/p: 56 yo smoker with h/o mild lv dysfunction, htn, hl, ckd, hiv, dm p/w progressive sob and subsequent PEA arrest with EMS (s/p resuscitation). acute hypoxic resp failure, acute on chronic syst CHF: -cxr w/o chf -resting echo 05/26 with mild LV dysfunction, ? worse (nuclear estimated EF 33%) , ? underlying CAD with balanced ischemia on nuclear--of note, ECG initially here with borderline ST changes for ischemia. ? diast chf component mixed in. -trop mildly elevated, now trending down. likely from demand. -received lasix drip 07/05 and 40mg iv 07/06 but now stopped due to florecita, cont prn for hypoxia -repeat echo here with worsened systolic function. would consider invasive ischemia eval (cath) if he were to make meaningful recovery -cont beta blockade. cardiac arrest (PEA): -sec to acute chf/hypoxia most likely -telem with stable rhythm (sinus) -cont monitoring, optimization of chf and acid-base status, as doing - neuro note reviewed: Pt was resuscitated per ACLS protocol for approximately 5 minutes according to note, receiving epi x 2, bicarb x 2. Per report, exam c/ w anoxic brain injury with only minimal brainstem activity at present - poor prognosis. FLORECITA on CKD: -baseline creat here 2.8 in 05/26. initially 2.4 on presentation to ER -suspect hypoperfusion/atn as cause, cr still elevated but gradually improving -holding lasix -renal following HTN: -cont bb HIV/Hep C: -per ID team anemia, gib: -likely ugib, now on ppi gtt -hgb improved s/p prbcs, remains stable today
[2017-07-12 12:33] LABS: URINE APPEARANCE SLCLOUDY; URINE BILIRUBIN NEGATIVE (NEGATIVE); URINE BLOOD 1+ (NEGATIVE); URINE COLOR YELLOW; URINE GLUCOSE (UA) 1+ (NEGATIVE); URINE KETONE NEGATIVE (NEGATIVE); URINE NITRITE NEGATIVE (NEGATIVE); URINE UROBILINOGEN NEGATIVE mg/dL (0.2-1.0)
[2017-07-12 12:36] LABS: URINE PROTEIN 3+ (NEGATIVE)
[2017-07-12 12:47] LABS: URINE MUCUS RARE; URINE RBC 43 /hpf (0-3); URINE WBC 10 /hpf (3-5)
[2017-07-12] MEDS: PROPOFOL 1,000,000 MCG/100 ML VIAL IVPB SCH ×4 (14:58→23:00)
[2017-07-12] MEDS ORDERED: ARTIFICIAL TEARS (POLYVINYL ALCOHOL 1.4%) OPTH DROPS OU PRN (15:20)
[2017-07-12] MEDS ORDERED: PROPOFOL ONE (20:27)
[2017-07-12 20:50] LABS: URINE LEUK ESTERASE Negative (NEGATIVE)
[2017-07-12] MEDS ORDERED: PT OWN MED DRAWER 7, Y5N ONE (21:24)
[2017-07-12] MEDS ORDERED: HEMOQUE TEST 1 EACH EACH ONE (21:52)
--- NOTE | 2017-07-12 22:39 | PN ---
Progress Note, Physician - Current Medication List Current Medications: Active Medications Artificial Tears (Artificial Tears) 1 drop OU BID PRN PRN Reason: DRY EYES Dexamethasone Sodium Phosphate (Decadron Injection -) 10 mg IVPUSH Q6H-IV [facility] Last Admin: 07/12/17 20:30 Dose: 10 mg Heparin Sodium (Porcine) (Heparin -) 5,000 unit SQ TID [facility] Last Admin: 07/10/17 13:43 Dose: Not Given Metronidazole (Flagyl 500mg Premixed Ivpb -) 500 mg in 100 mls @ 100 mls/hr IVPB Q8H-IV [facility] Last Admin: 07/12/17 17:00 Dose: 100 mls/hr Propofol (Diprivan -) 1,000,000 mcg in 100 mls @ 2.807 mls/hr IVPB TITR PAULINE; 5 MCG/KG/MIN PRN Reason: Protocol Last Admin: 07/12/17 20:30 Dose: 80.16 mcg/kg/min, 45 mls/hr Pantoprazole Sodium 80 mg/ (Sodium Chloride) 100 mls @ 10 mls/hr IVPB Q10H PAULINE PRN Reason: 8 MG/HR Last Admin: 07/12/17 15:06 Dose: Not Given Sodium Bicarbonate 100 meq/ (Dextrose) 1,100 mls @ 50 mls/hr IV Q22H [facility] Last Admin: 07/12/17 10:12 Dose: 50 mls/hr Piperacillin Sod/Tazobactam (Sod 2.25 gm/ Dextrose) 50 mls @ 100 mls/hr IVPB BID [facility] Last Admin: 07/12/17 10:18 Dose: 100 mls/hr Insulin Aspart (Novolog Vial Sliding Scale -) 1 vial SQ Q4HPO [facility] PRN Reason: Protocol Last Admin: 07/12/17 21:58 Dose: 10 units Labetalol HCl (Normodyne Injection -) 10 mg IVPUSH Q4H PRN PRN Reason: HYPERTENSION Last Admin: 07/12/17 14:59 Dose: 10 mg Metoprolol Tartrate (Lopressor -) 25 mg PO BID [facility] Last Admin: 07/12/17 10:32 Dose: Not Given Metoprolol Tartrate (Lopressor Injection -) 5 mg IVPUSH Q4H PRN PRN Reason: HYPERTENSION Last Admin: 07/12/17 10:35 Dose: 5 mg - Objective Vital Signs: Vital Signs Temperature 102.8 F H 07/12/17 17:35 Pulse Rate 105 H 07/12/17 17:35 Respiratory Rate 32 H 07/12/17 22:07 Blood Pressure 133/83 07/12/17 17:35 O2 Sat by Pulse Oximetry (%) 100 07/12/17 19:21 Labs: CBC, BMP 07/12/17 05:35 07/12/17 05:35 INR, PTT INR 1.18 (0.82-1.09) H 07/06/17 05:00 Problem List - Problems (1) Respiratory failure Code(s): J96.90 - RESPIRATORY FAILURE, UNSP, UNSP W HYPOXIA OR HYPERCAPNIA (2) Cardiopulmonary arrest with successful resuscitation Code(s): I46.9 - CARDIAC ARREST, CAUSE UNSPECIFIED (3) Acute on chronic diastolic CHF (congestive heart failure) Code(s): I50.33 - ACUTE ON CHRONIC DIASTOLIC (CONGESTIVE) HEART FAILURE (4) Uncontrolled diabetes mellitus Code(s): E11.65 - TYPE 2 DIABETES MELLITUS WITH HYPERGLYCEMIA
[2017-07-13] MEDS: PIPERACILLIN/TAZOB 2.25 GM 2.25 GM in DEXTROSE 5%-WATER - 50 ML IVPB SCH ×2 (00:11→11:00)
[2017-07-13] MEDS: PROPOFOL 1,000,000 MCG/100 ML VIAL IVPB SCH ×5 (01:00→21:00)
[2017-07-13] MEDS: PANTOPRAZOLE SODIUM 80 MG in SODIUM CHLORIDE 100 ML IVPB SCH ×3 (02:32→16:00)
[2017-07-13] MEDS: METRONIDAZOLE 500 MG PREMIXED 500 MG/100 ML MG IVPB SCH ×2 (02:34→09:06)
[2017-07-13] MEDS: DEXAMETHASONE SOD PHOSPHATE 10 MG/1 ML VIAL IVPUSH SCH ×4 (02:35→20:11)
[2017-07-13] MEDS: INSULIN SLIDING SCALE (NOVOLOG) 1 VIAL SQ SCH ×6 (03:02→21:45)
[2017-07-13] MEDS ORDERED: PT OWN MED DRAWER 7, Y5N ONE (08:37)
--- NOTE | 2017-07-13 09:10 | PN ---
Progress Note (short form) - Note Progress Note: Neurology History of Present Illness: Mr. Welch is a 56 y/o man w/ HTN, HL, DM, CKD, HIV on HAART, EF 49.5%, BIBA for SOB. Reportedly had been experiencing worsening SOB & SAMUELS w/ assoc wheezing for several days prior to admission. While in route developed further respiratory distress and in ER had agonal breathing and unresponsive. No pulse noted on stretcher transferand chest compressions were initiated. The Pt was resuscitated per ACLS protocol for approximately 5 minutes according to note, receiving epi x 2, bicarb x 2. Pt was intubated and placed on ventilator and given nebulizers and steroids. Pt admitted to the ICU s/p Cardiac Arrest and respiratory failure. The patient has been on propofol but having myoclonic twitches especially in right foot. Given his history, this is likely myoclonic jerks 2/2 to anoxic brain injury. Klonipin was started, twitching improved and not visible at this time. Patient having gagging on tube. There is minimal pupil contriction from 2mm to 1mm and therefore does not meet criteria for brain . However, only minimal brainstem activity and no significant improvement thus far. EEG completed, showed mix of theta and beta activity, consistent with encephalopathy. Again, not brain . CT head completed and showed cerebral edema, repeated and showed improved cerebral edema likely due to steroids given. Clinically without signficiant improvement. Physical Exam Vital Signs Period Temp Pulse Resp BP Sys/[place] Pulse Ox Last 24 Hr 101 F-103.8 F 85-121 28-41 124-204/66-108 100-100 Constitutional: Yes: Well Nourished, No Distress, Calm Eyes: Yes: PERRL, Other (R Upward Lat Gaze.) HENT: Yes: WNL, Atraumatic, Normocephalic Neck: Yes: WNL, Supple, Trachea Midline Cardiovascular: Yes: WNL, Regular Rate and Rhythm Respiratory: Yes: Diminished, Mechanically Ventilated, Wheezes Gastrointestinal: Yes: Abdomen, Obese, Distention, Hyperactive Bowel Sounds ...Rectal Exam: Yes: Deferred Renal/: Yes: Rocha Present Breast(s): Yes: WNL Extremities: Yes: Other (Clubbed Fingers.) Edema: Yes Edema: LLE: 1+, RLE: 1+ Peripheral Pulses WNL: Yes Integumentary: Yes: WNL Neurological: No facial droop, not responding to pain, not gagging on suction, R pupil 2mm --> 1mm, no spontaneous movement, R foot myoclonic twitching noted CBCD WBC 16.3 K/mm3 (4.0-10.0) H 07/12/17 05:35 RBC 4.16 M/mm3 (4.00-5.60) 07/12/17 05:35 Hgb 11.9 GM/dL (11.7-16.9) D 07/12/17 05:35 Hct 34.8 % (35.4-49) L 07/12/17 05:35 MCV 83.6 fl (80-96) 07/12/17 05:35 MCHC 34.2 g/dl (32.0-35.9) 07/12/17 05:35 RDW 16.6 % (11.9-15.9) H 07/12/17 05:35 Plt Count 382 K/MM3 (134-434) D 07/12/17 05:35 MPV 8.8 fl (7.5-11.1) 07/12/17 05:35 CMP Sodium 141 mmol/L (136-145) 07/12/17 05:35 Potassium 3.5 mmol/L (3.5-5.1) 07/12/17 05:35 Chloride 109 mmol/L (98-107) H 07/12/17 05:35 Carbon Dioxide 15 mmol/L (21-32) L D 07/12/17 05:35 Anion Gap 17 (8-16) H 07/12/17 05:35 BUN 98 mg/dL (7-18) H 07/12/17 05:35 Creatinine 4.8 mg/dL (0.7-1.3) H 07/12/17 05:35 Creat Clearance w eGFR 12.60 (>60) 07/12/17 05:35 Calcium 7.4 mg/dL (8.5-10.1) L 07/12/17 05:35 Total Bilirubin 0.9 mg/dL (0.2-1.0) D 07/12/17 05:35 AST 31 U/L (15-37) 07/12/17 05:35 ALT 25 U/L (12-78) D 07/12/17 05:35 Alkaline Phosphatase 62 U/L (45-117) 07/12/17 05:35 Total Protein 6.8 g/dl (6.4-8.2) 07/12/17 05:35 Albumin 2.2 g/dl (3.4-5.0) L D 07/12/17 05:35 CT head X2 as above Plan: 56 y/o man w/ HTN, HL, DM, CKD, HIV on HAART, EF 49.5%, BIBA for SOB. Reportedly had been experiencing worsening SOB & SAMUELS w/ assoc wheezing for several days prior to admission. While in route developed further respiratory distress and in ER had agonal breathing and unresponsive. No pulse noted on stretcher transferand chest compressions were initiated. The Pt was resuscitated per ACLS protocol for approximately 5 minutes according to note, receiving epi x 2, bicarb x 2. Pt was intubated and placed on ventilator and given nebulizers and steroids. Pt admitted to the ICU s/p Cardiac Arrest and respiratory failure. The patient has been on propofol but having myoclonic twitches especially in right foot which have improved with Klonipin Given his history, this was likely myoclonic jerks 2/2 to anoxic brain injury and would require AEDS klonipin 1mg twice daily added and subsided Continue ICU care Continue Mechanical ventilation, wean as able Wean sedation as able Spiking fevers, possible central fevers Initial CT head with cerebral edema noted and loss of balderas white differentiation Repeat CT with cortical sulci more visible and less edema, though evidence of anoxic brain injury in basal ganglia EEG confirmed patient with brain activity, mix of delta and theta, consistent with encephalopathy Monitor mental status for any improvement Monitor blood pressure, support as required Critical Care Time 40 mins
--- NOTE | 2017-07-13 09:13 | PN ---
Progress Note, Physician Chief Complaint: acute resp failure/PEA arrest History of Present Illness: intubated/sedate, no response - Current Medication List Current Medications: Active Medications Artificial Tears (Artificial Tears) 1 drop OU BID PRN PRN Reason: DRY EYES Dexamethasone Sodium Phosphate (Decadron Injection -) 10 mg IVPUSH Q6H-IV [facility] Last Admin: 07/13/17 09:05 Dose: 10 mg Heparin Sodium (Porcine) (Heparin -) 5,000 unit SQ TID [facility] Last Admin: 07/10/17 13:43 Dose: Not Given Metronidazole (Flagyl 500mg Premixed Ivpb -) 500 mg in 100 mls @ 100 mls/hr IVPB Q8H-IV [facility] Last Admin: 07/13/17 09:06 Dose: 100 mls/hr Propofol (Diprivan -) 1,000,000 mcg in 100 mls @ 2.807 mls/hr IVPB TITR [facility]; 5 MCG/KG/MIN PRN Reason: Protocol Last Admin: 07/13/17 09:03 Dose: 80.16 mcg/kg/min, 44.995 mls/hr Pantoprazole Sodium 80 mg/ (Sodium Chloride) 100 mls @ 10 mls/hr IVPB Q10H [facility] PRN Reason: 8 MG/HR Last Admin: 07/13/17 02:32 Dose: 10 mls/hr Sodium Bicarbonate 100 meq/ (Dextrose) 1,100 mls @ 50 mls/hr IV Q22H [facility] Last Admin: 07/12/17 10:12 Dose: 50 mls/hr Piperacillin Sod/Tazobactam (Sod 2.25 gm/ Dextrose) 50 mls @ 100 mls/hr IVPB BID [facility] Last Admin: 07/13/17 00:11 Dose: 100 mls/hr Insulin Aspart (Novolog Vial Sliding Scale -) 1 vial SQ Q4HPO [facility] PRN Reason: Protocol Last Admin: 07/13/17 03:02 Dose: 12 units Labetalol HCl (Normodyne Injection -) 10 mg IVPUSH Q4H PRN PRN Reason: HYPERTENSION Last Admin: 07/12/17 14:59 Dose: 10 mg Metoprolol Tartrate (Lopressor -) 25 mg PO BID [facility] Last Admin: 07/12/17 22:00 Dose: Not Given Metoprolol Tartrate (Lopressor Injection -) 5 mg IVPUSH Q4H PRN PRN Reason: HYPERTENSION Last Admin: 07/12/17 10:35 Dose: 5 mg - Objective Vital Signs: Vital Signs Temperature 101.7 F H 07/13/17 06:19 Pulse Rate 98 H 07/13/17 06:19 Respiratory Rate 30 H 07/13/17 06:30 Blood Pressure 164/88 07/13/17 06:19 O2 Sat by Pulse Oximetry (%) 100 07/12/17 19:21 Constitutional: Yes: Well Nourished, No Distress, Calm Cardiovascular: Yes: Regular Rate and Rhythm, S1, S2. No: JVD, Gallop, Murmur Respiratory: Yes: Regular, CTA Bilaterally (anteriorly). No: Accessory Muscle Use, Rales, Wheezes Extremities: No: Cold Edema: No (SCDs bilat) Neurological: No: Alert, Oriented, Seizure Psychiatric: No: Agitated Labs: CBC, BMP 07/12/17 05:35 07/12/17 05:35 INR, PTT INR 1.18 (0.82-1.09) H 07/06/17 05:00 - ....Imaging EKG: Other (tele: NSR) Assessment/Plan cxr 07/12:no chf ECG #1: sinus tach, normal axis, +/- long QT (mild); no pathol q waves; borderline ischemic appearing ST depressions inferior leads and V6 (no old but this was not reported on 12/24 office ecg) #2: NSR, STs resolving #3: sinus tach with pvc's. new diffuse TWI, worst in precordial leads. prolonged qtc. #4: no signif change vs #3 MPI 05/26: no ischemia, EF 33% (global) Echo 06/2017: nl lv size. LV fn mod-sev reduced (global). nl rv size/fn. 1+ mr/ tr. rvsp 30-40. + pleural effusion. Echo 05/26 (): mod LVE, mild global LV hypo; nl RV; mild LAE; mild MR Echo 12/24: nl LV and RV, nl valves a/p: 56 yo smoker with h/o mild lv dysfunction, htn, hl, ckd, hiv, dm p/w progressive sob and subsequent PEA arrest with EMS (s/p resuscitation). acute hypoxic resp failure, acute on chronic syst CHF, NSTEMI, cardiac arrest ( PEA): -initially with marked chf on cxr in setting of several days of worsening sob -suspect PEA due to severe chf decompensation with acute hypoxia -suspected anoxic brain injury now, neuro following -cxr w/o chf, no clinical chf, did not respond to brief trial of lasix gtt -resting echo 05/26 with mild LV dysfunction, ? echo overestimaged EF (nuclear estimated EF 33%) -NSTEMI trop trend here with peak 1.3 ([id number] pattern) -ECG initially here with borderline ST changes for ischemia (likely secondary) -? underlying CAD with balanced ischemia on nuclear. -repeat echo here with worsened systolic function. (consider invasive ischemia eval (cath) if he were to make meaningful recovery.) -cont beta blockade -no NORRIS/ARB given profound FLORECITA -remains without suspected volume/chf--no diuresis -per critical care, may need trach vs compassionate wean from vent FLORECITA on CKD: -baseline creat here 2.8 in 05/26. initially 2.4 on presentation to ER, up to 6 here, not trending down -suspect hypoperfusion/atn as cause -holding lasix -renal following HTN: -bp reasonably controlled -cont bb HIV/Hep C: -per ID team anemia, gib: -likely ugib, now on ppi gtt -hgb improved s/p prbcs, remains stable today
[2017-07-13] MEDS: METOPROLOL TARTRATE 25 MG TABLET (FP) PO SCH ×2 (09:33→21:33)
[2017-07-13] MEDS ORDERED: HEMOQUE TEST 1 EACH EACH ONE ×3 (13:02→21:39)
--- NOTE | 2017-07-13 13:17 | PN ---
Teaching Attending Note Name of Resident: Dione Hidalgo ATTENDING PHYSICIAN STATEMENT I saw and evaluated the patient. I reviewed the resident's note and discussed the case with the resident. I agree with the resident's findings and plan as documented. SUBJECTIVE: Pt seen and examined in the ICU. Remains intubated, sedated. Daughter at bedside. Taken off sedation, pt became bradycardic, tachypneic with increased work of breathing. Not following commands and not alert when taken off sedation. Fevers persist. OBJECTIVE: Last Vital Signs Temp Pulse Resp BP Pulse Ox 101.7 F H 78 32 H 164/88 100 07/13/17 06:19 07/13/17 09:35 07/13/17 11:58 07/13/17 06:19 07/13/17 10:49 Intake & Output 07/10/17 07/11/17 07/12/17 07/13/17 23:59 23:59 23:59 23:59 Intake Total 1327.4 2482.8 3282 1516 Output Total 2500 4150 2150 900 Balance -1172.6 -1667.2 1132 616 Weight 206 lb 4 oz 206 lb 2.115 oz 202 lb 9 oz 209 lb 6 oz Gen: intubated, sedated Heart: RRR Lung: scattered rhonchi Abd: soft, nontender Ext: + edema CBC, BMP 07/12/17 05:35 07/12/17 05:35 Active Medications Artificial Tears (Artificial Tears) 1 drop OU BID PRN PRN Reason: DRY EYES Dexamethasone Sodium Phosphate (Decadron Injection -) 10 mg IVPUSH Q6H-IV [facility] Last Admin: 07/13/17 09:05 Dose: 10 mg Heparin Sodium (Porcine) (Heparin -) 5,000 unit SQ TID [facility] Last Admin: 07/10/17 13:43 Dose: Not Given Metronidazole (Flagyl 500mg Premixed Ivpb -) 500 mg in 100 mls @ 100 mls/hr IVPB Q8H-IV [facility] Last Admin: 07/13/17 09:06 Dose: 100 mls/hr Propofol (Diprivan -) 1,000,000 mcg in 100 mls @ 2.807 mls/hr IVPB TITR [facility]; 5 MCG/KG/MIN PRN Reason: Protocol Last Admin: 07/13/17 09:03 Dose: 80.16 mcg/kg/min, 44.995 mls/hr Pantoprazole Sodium 80 mg/ (Sodium Chloride) 100 mls @ 10 mls/hr IVPB Q10H REPLACED BY [facility] PRN Reason: 8 MG/HR Last Admin: 07/13/17 02:32 Dose: 10 mls/hr Sodium Bicarbonate 100 meq/ (Dextrose) 1,100 mls @ 50 mls/hr IV Q22H REPLACED BY [facility] Last Admin: 07/12/17 10:12 Dose: 50 mls/hr Piperacillin Sod/Tazobactam (Sod 2.25 gm/ Dextrose) 50 mls @ 100 mls/hr IVPB BID REPLACED BY [facility] Last Admin: 07/13/17 11:00 Dose: 100 mls/hr Insulin Aspart (Novolog Vial Sliding Scale -) 1 vial SQ Q4HPO REPLACED BY [facility] PRN Reason: Protocol Last Admin: 07/13/17 13:13 Dose: 10 units Labetalol HCl (Normodyne Injection -) 10 mg IVPUSH Q4H PRN PRN Reason: HYPERTENSION Last Admin: 07/12/17 14:59 Dose: 10 mg Metoprolol Tartrate (Lopressor -) 25 mg PO BID REPLACED BY [facility] Last Admin: 07/13/17 09:33 Dose: 25 mg Metoprolol Tartrate (Lopressor Injection -) 5 mg IVPUSH Q4H PRN PRN Reason: HYPERTENSION Last Admin: 07/12/17 10:35 Dose: 5 mg ASSESSMENT AND PLAN: s/p Cardiopulmonary Arrest Likely Anoxic Brain Injury Acute on Chronic Systolic Heart Failure +Troponins Acute on Chronic Renal Failure Lactic Acidosis resolved HTN HIV Hep C Smoker - continue antibiotics - monitor urine output, creatinine - daily sedation vacations to assess mental status - taper FiO2 to keep SpO2 >90% - not a candidate for weaning due to poor mental status - enteral feeds - DVT/GI prophylaxis - poor overall prognosis for meaningful recovery, discussed with daughter at bedside, she states that pt would not want to be kept alive without quality of life critical care time spent in reviewing chart, evaluating patient and formulating plan 35 min
[2017-07-13] MEDS ORDERED: INSULIN (NOVOLOG) ASPART 100 UNITS/ML 10ML VIAL ONE ×2 (13:19→19:37)
--- NOTE | 2017-07-13 13:58 | PN ---
Progress Note, Physician History of Present Illness: Pt seen and examined at bedside. He remains in the ICU. Pt remains intubated. Family are at bedside and care was discussed with them. - Current Medication List Current Medications: Active Medications Artificial Tears (Artificial Tears) 1 drop OU BID PRN PRN Reason: DRY EYES Dexamethasone Sodium Phosphate (Decadron Injection -) 10 mg IVPUSH Q6H-IV [facility] Last Admin: 07/13/17 09:05 Dose: 10 mg Heparin Sodium (Porcine) (Heparin -) 5,000 unit SQ TID [facility] Last Admin: 07/10/17 13:43 Dose: Not Given Metronidazole (Flagyl 500mg Premixed Ivpb -) 500 mg in 100 mls @ 100 mls/hr IVPB Q8H-IV [facility] Last Admin: 07/13/17 09:06 Dose: 100 mls/hr Propofol (Diprivan -) 1,000,000 mcg in 100 mls @ 2.807 mls/hr IVPB TITR [facility]; 5 MCG/KG/MIN PRN Reason: Protocol Last Admin: 07/13/17 09:03 Dose: 80.16 mcg/kg/min, 44.995 mls/hr Pantoprazole Sodium 80 mg/ (Sodium Chloride) 100 mls @ 10 mls/hr IVPB Q10H [facility] PRN Reason: 8 MG/HR Last Admin: 07/13/17 02:32 Dose: 10 mls/hr Sodium Bicarbonate 100 meq/ (Dextrose) 1,100 mls @ 50 mls/hr IV Q22H [facility] Last Admin: 07/12/17 10:12 Dose: 50 mls/hr Piperacillin Sod/Tazobactam (Sod 2.25 gm/ Dextrose) 50 mls @ 100 mls/hr IVPB BID [facility] Last Admin: 07/13/17 11:00 Dose: 100 mls/hr Insulin Aspart (Novolog Vial Sliding Scale -) 1 vial SQ Q4HPO [facility] PRN Reason: Protocol Last Admin: 07/13/17 13:13 Dose: 10 units Labetalol HCl (Normodyne Injection -) 10 mg IVPUSH Q4H PRN PRN Reason: HYPERTENSION Last Admin: 07/12/17 14:59 Dose: 10 mg Metoprolol Tartrate (Lopressor -) 25 mg PO BID [facility] Last Admin: 07/13/17 09:33 Dose: 25 mg Metoprolol Tartrate (Lopressor Injection -) 5 mg IVPUSH Q4H PRN PRN Reason: HYPERTENSION Last Admin: 07/12/17 10:35 Dose: 5 mg - Objective Vital Signs: Vital Signs Temperature 101.7 F H 07/13/17 06:19 Pulse Rate 78 07/13/17 09:35 Respiratory Rate 34 H 07/13/17 13:33 Blood Pressure 164/88 07/13/17 06:19 O2 Sat by Pulse Oximetry (%) 100 07/13/17 10:49 Constitutional: Yes: Calm Eyes: Yes: Conjunctiva Clear Cardiovascular: Yes: S1, S2 Respiratory: Yes: Mechanically Ventilated Gastrointestinal: Yes: Soft Genitourinary: Yes: Rocha Present Musculoskeletal: Yes: Muscle Weakness Edema: Yes Neurological: Yes: Lethargy Labs: CBC, BMP 07/12/17 05:35 07/12/17 05:35 INR, PTT INR 1.18 (0.82-1.09) H 07/06/17 05:00 Problem List - Problems (1) FLORECITA (acute kidney injury) Code(s): N17.9 - ACUTE KIDNEY FAILURE, UNSPECIFIED (2) CHF (congestive heart failure) Code(s): I50.9 - HEART FAILURE, UNSPECIFIED Qualifiers: Congestive heart failure type: unspecified congestive heart failure type Congestive heart failure chronicity: unspecified congestive heart failure chronicity Qualified Code(s): I50.9 - Heart failure, unspecified (3) Cardiopulmonary arrest with successful resuscitation Code(s): I46.9 - CARDIAC ARREST, CAUSE UNSPECIFIED (4) Chronic kidney disease Code(s): N18.9 - CHRONIC KIDNEY DISEASE, UNSPECIFIED (5) Hypertension Code(s): I10 - ESSENTIAL (PRIMARY) HYPERTENSION (6) Chronic kidney disease Code(s): N18.9 - CHRONIC KIDNEY DISEASE, UNSPECIFIED Assessment/Plan Current Medications Generic Name Dose Route Start Last Admin Trade Name Freq PRN Reason Stop Dose Admin Artificial Tears 1 drop 07/12/17 15:20 Artificial Tears OU BID PRN DRY EYES Dexamethasone Sodium Phosphate 10 mg 07/09/17 11:45 07/13/17 09:05 Decadron Injection - IVPUSH 10 mg Q6H-IV [facility] Administration Heparin Sodium (Porcine) 5,000 unit 07/08/17 15:30 07/10/17 13:43 Heparin - SQ Not Given TID PA[facility]INE Metronidazole 500 mg in 100 mls @ 100 mls/hr 07/08/17 10:00 07/13/17 09:06 Flagyl 500mg Premixed Ivpb - IVPB 100 mls/hr Q8H-IV [facility] Administration Propofol 1,000,000 mcg in 100 mls @ 2.807 mls/hr 07/10/17 14:00 07/13/17 09: 03 Diprivan - IVPB 80.16 mcg/kg/min TITR [facility] 44.995 mls/hr Protocol Administration 5 MCG/KG/MIN Pantoprazole Sodium 80 mg/ 100 mls @ 10 mls/hr 07/10/17 19:15 07/13/17 02:32 Sodium Chloride IVPB 10 mls/hr Q10H [facility] Administration 8 MG/HR Sodium Bicarbonate 100 meq/ 1,100 mls @ 50 mls/hr 07/11/17 11:30 07/12/17 10: 12 Dextrose IV 50 mls/hr Q22H [facility] Administration Piperacillin Sod/Tazobactam 50 mls @ 100 mls/hr 07/12/17 10:00 07/13/17 11:00 Sod 2.25 gm/ Dextrose IVPB 100 mls/hr BID [facility] Administration Insulin Aspart 1 vial 07/07/17 14:30 07/13/17 13:13 Novolog Vial Sliding Scale - SQ 10 units Q4HPO [facility] Administration Protocol Labetalol HCl 10 mg 07/09/17 11:12 07/12/17 14:59 Normodyne Injection - IVPUSH 10 mg Q4H PRN Administration HYPERTENSION Metoprolol Tartrate 25 mg 07/07/17 15:30 07/13/17 09:33 Lopressor - PO 25 mg BID [facility] Administration Metoprolol Tartrate 5 mg 07/10/17 21:59 07/12/17 10:35 Lopressor Injection - IVPUSH 5 mg Q4H PRN Administration HYPERTENSION Impression 1. FLORECITA 2. CKD 3. cardiac arrest 4. CHF 5. HIV 6. hypomagnesemia 7. anoxic brain injury 8. anemia Plan - continue to monitor renal function - repeat bmp - discussed with pts daughter who is at bedside - steroid can contribute to elevated bun - will need better glucose control - vent support - family are discussed GOC - discussed with ICU - likely ATN from hypotension during arrest - pt does have history of CKD - neuro follow up - cont to monitor urine output - prognosis guarded
[2017-07-13] MEDS: DEXTROSE 5%-WATER - 1,000 ML with SODIUM BICARBONATE 8.4% - 100 MEQ IV SCH (14:00)
--- NOTE | 2017-07-13 14:47 | PN ---
Progress Note, Physician Chief Complaint: ID Had him on Cefrtriaxone and metronidazole then changed to Vanco and Zosyn yesterday when he spike fever again. Now on steroids and still febrile raising question of central origin of the fever - Current Medication List Current Medications: Active Medications Artificial Tears (Artificial Tears) 1 drop OU BID PRN PRN Reason: DRY EYES Dexamethasone Sodium Phosphate (Decadron Injection -) 10 mg IVPUSH Q6H-IV [facility] Last Admin: 07/13/17 09:05 Dose: 10 mg Heparin Sodium (Porcine) (Heparin -) 5,000 unit SQ TID [facility] Last Admin: 07/10/17 13:43 Dose: Not Given Propofol (Diprivan -) 1,000,000 mcg in 100 mls @ 2.807 mls/hr IVPB TITR [facility]; 5 MCG/KG/MIN PRN Reason: Protocol Last Admin: 07/13/17 09:03 Dose: 80.16 mcg/kg/min, 44.995 mls/hr Pantoprazole Sodium 80 mg/ (Sodium Chloride) 100 mls @ 10 mls/hr IVPB Q10H [facility] PRN Reason: 8 MG/HR Last Admin: 07/13/17 02:32 Dose: 10 mls/hr Sodium Bicarbonate 100 meq/ (Dextrose) 1,100 mls @ 50 mls/hr IV Q22H [facility] Last Admin: 07/12/17 10:12 Dose: 50 mls/hr Piperacillin Sod/Tazobactam (Sod 2.25 gm/ Dextrose) 50 mls @ 100 mls/hr IVPB BID [facility] Last Admin: 07/13/17 11:00 Dose: 100 mls/hr Insulin Aspart (Novolog Vial Sliding Scale -) 1 vial SQ Q4HPO [facility] PRN Reason: Protocol Last Admin: 07/13/17 13:13 Dose: 10 units Labetalol HCl (Normodyne Injection -) 10 mg IVPUSH Q4H PRN PRN Reason: HYPERTENSION Last Admin: 07/12/17 14:59 Dose: 10 mg Metoprolol Tartrate (Lopressor -) 25 mg PO BID [facility] Last Admin: 07/13/17 09:33 Dose: 25 mg Metoprolol Tartrate (Lopressor Injection -) 5 mg IVPUSH Q4H PRN PRN Reason: HYPERTENSION Last Admin: 07/12/17 10:35 Dose: 5 mg - Objective Vital Signs: Vital Signs Temperature 101.7 F H 07/13/17 06:19 Pulse Rate 78 07/13/17 09:35 Respiratory Rate 34 H 07/13/17 13:33 Blood Pressure 164/88 07/13/17 06:19 O2 Sat by Pulse Oximetry (%) 100 07/13/17 10:49 Constitutional: Yes: Other (Intubated) Cardiovascular: Yes: Regular Rate and Rhythm, S1, S2. No: Murmur Respiratory: Yes: WNL, Regular, CTA Bilaterally Gastrointestinal: Yes: Soft Labs: CBC, BMP 07/12/17 05:35 07/12/17 05:35 INR, PTT INR 1.18 (0.82-1.09) H 07/06/17 05:00 Problem List - Problems (1) Cardiopulmonary arrest with successful resuscitation Code(s): I46.9 - CARDIAC ARREST, CAUSE UNSPECIFIED (2) Uncontrolled diabetes mellitus Code(s): E11.65 - TYPE 2 DIABETES MELLITUS WITH HYPERGLYCEMIA (3) Sepsis Code(s): A41.9 - SEPSIS, UNSPECIFIED ORGANISM (4) Chronic kidney disease Code(s): N18.9 - CHRONIC KIDNEY DISEASE, UNSPECIFIED (5) Hypertension Code(s): I10 - ESSENTIAL (PRIMARY) HYPERTENSION Assessment/Plan Microbiology 07/12/17 12:04 Urine - Urine Rocha Urine Culture - Final NO GROWTH OBTAINED 07/12/17 12:04 Sputum - Endotrachea Suction/Ventilator Gram Stain - Final 07/12/17 12:04 Sputum - Endotrachea Suction/Ventilator Sputum Culture - Final Yeast Like Organism 07/05/17 21:10 Sputum - Endotrachea Suction/Ventilator Gram Stain - Final 07/05/17 21:10 Sputum - Endotrachea Suction/Ventilator Sputum Culture - Final Staphylococcus Aureus Strep Agalactiae Group B 07/12/17 08:30 Blood - Peripheral Venous Blood Culture - Preliminary NO GROWTH OBTAINED AFTER 24 HOURS, INCUBATION TO CONTINUE FOR 4 DAYS. 07/12/17 08:20 Blood - Peripheral Venous Blood Culture - Preliminary NO GROWTH OBTAINED AFTER 24 HOURS, INCUBATION TO CONTINUE FOR 4 DAYS. Laboratory Tests 07/12/17 07/12/17 05:35 05:35 WBC 16.3 H Hgb 11.9 D Hct 34.8 L Plt Count 382 D BUN 98 H Creatinine 4.8 H Assessment Cardiac arrest Fever multiorgan failure Starting to look more like central fever by exclusion Plan Will stop antibiotics Amanuel ROJAS
[2017-07-13 15:21] LABS: MCH 28.9 pg (25.7-33.7); MCHC 34.6 g/dl (32.0-35.9); MEAN CELL VOLUME 83.4 fl (80-96); MEAN PLT VOLUME 9.2 fl (7.5-11.1); PLATELET COUNT 294 K/MM3 (134-434); RDW 16.4 % (11.9-15.9); WHITE BLOOD COUNT 13.1 K/mm3 (4.0-10.0)
[2017-07-13 15:31] LABS: ANION GAP 20 (8-16); CALCIUM 7.3 mg/dL (8.5-10.1); CO2 14 mmol/L (21-32); CREATININE 4.7 mg/dL (0.7-1.3)
[2017-07-13 15:35] LABS: MAGNESIUM 2.3 mg/dL (1.8-2.4)
[2017-07-13 15:36] LABS: PHOSPHOROUS 6.5 mg/dL (2.5-4.9)
[2017-07-13 15:37] LABS: GLUCOSE,RANDOM 462 mg/dL (74-106)
[2017-07-13 15:54] LABS: TOTAL CELLS COUNTED 100
[2017-07-13 15:55] LABS: PLATELET ESTIMATE ADEQUATE
[2017-07-13] MEDS ORDERED: POTASSIUM CHLORIDE TABS 20 MEQ TABLET.ER (FP) PO ONE (16:30)
[2017-07-13] MEDS: KCL 10 MEQ IVPB 10 MEQ/100 ML INFUS.BAG IVPB SCH ×3 (18:06→19:56)
--- NOTE | 2017-07-13 18:36 | PN ---
Physical Exam: SUBJECTIVE: Patient seen and examined at bedside. 24 hr events -Tmax 103.8F 11pm, received cold pack tx -On bicarb drip, protonix gtt, levophed -Glucose elevated 404, received novolog 12U Today -pt is overbreathing vent -Sedation vacation attempted 2x during rounds, however pt became tachycardic and tachypneic -placed back on propofol -Daughter at bedside, states that father would not wish to be in a continued vegetative state, once everything possible is done first -vent settings: 28 RR/500 TV/40% FiO2/ PEEP 8 OBJECTIVE: Vital Signs Period Temp Pulse Resp BP Sys/[place] Pulse Ox Last 24 Hr 100.3 F-103.8 F 78-107 18-34 123-181/66-108 100-100 GENERAL: The patient is sedated, vented HEAD: Normal with no signs of trauma. EYES: PERRL, extraocular movements intact, sclera anicteric, conjunctiva clear. NECK: Trachea midline, supple. LUNGS: coarse breath sounds appreciated b/l, abdominal breathing when sedation was d/c HEART: Regular rate and rhythm, S1, S2 without murmur, rub or gallop. ABDOMEN: Soft, nontender, nondistended, normoactive bowel sounds EXTREMITIES: 2+ dorsalis pedis pulses, 1+ pitting edema b/l NEUROLOGICAL: unable to assess as pt sedated Laboratory Results - last 24 hr 07/12/17 07/13/17 07/13/17 12:04 13:50 13:50 WBC 13.1 H RBC 4.29 Hgb 12.4 Hct 35.8 MCV 83.4 MCH 28.9 MCHC 34.6 RDW 16.4 H Plt Count 294 D MPV 9.2 Total Counted 100 Neutrophils % No Result Required. Neutrophils % (Manual) 86.0 H Lymphocytes % No Result Required. Lymphocytes % (Manual) 7.0 L D Monocytes % (Manual) 7 Platelet Estimate Adequate Sodium 140 Potassium 3.0 L Chloride 106 Carbon Dioxide 14 L Anion Gap 20 H BUN 100 H Creatinine 4.7 H Random Glucose 462 H* D Calcium 7.3 L Phosphorus 6.5 H Magnesium 2.3 Ur Leukocyte Esterase Negative Active Medications Generic Name Dose Route Start Last Admin Trade Name Freq PRN Reason Stop Dose Admin Artificial Tears 1 drop 07/12/17 15:20 Artificial Tears OU BID PRN DRY EYES Dexamethasone Sodium Phosphate 10 mg 07/09/17 11:45 07/13/17 14:53 Decadron Injection - IVPUSH 10 mg Q6H-IV [facility] Administration Heparin Sodium (Porcine) 5,000 unit 07/08/17 15:30 07/10/17 13:43 Heparin - SQ Not Given TID [facility] Propofol 1,000,000 mcg in 100 mls @ 2.807 mls/hr 07/10/17 14:00 07/13/17 14: 49 Diprivan - IVPB 60 mcg/kg/min TITR [facility] 33.679 mls/hr Protocol Administration 5 MCG/KG/MIN Pantoprazole Sodium 80 mg/ 100 mls @ 10 mls/hr 07/10/17 19:15 07/13/17 16:00 Sodium Chloride IVPB 10 mls/hr Q10H [facility] Administration 8 MG/HR Sodium Bicarbonate 100 meq/ 1,100 mls @ 50 mls/hr 07/11/17 11:30 07/13/17 14: 00 Dextrose IV 50 mls/hr Q22H [facility] Administration Potassium Chloride 10 meq in 100 mls @ 100 mls/hr 07/13/17 17:30 07/13/17 18: 06 Potassium Chloride 10 Meq Premix Ivpb - IVPB 07/13/17 20:29 100 mls/hr Q60M [facility] Administration Insulin Aspart 1 vial 07/07/17 14:30 07/13/17 15:00 Novolog Vial Sliding Scale - SQ 10 units Q4HPO [facility] Administration Protocol Labetalol HCl 10 mg 07/09/17 11:12 07/12/17 14:59 Normodyne Injection - IVPUSH 10 mg Q4H PRN Administration HYPERTENSION Metoprolol Tartrate 25 mg 07/07/17 15:30 07/13/17 09:33 Lopressor - PO 25 mg BID [facility] Administration Metoprolol Tartrate 5 mg 07/10/17 21:59 07/12/17 10:35 Lopressor Injection - IVPUSH 5 mg Q4H PRN Administration HYPERTENSION ASSESSMENT/PLAN: Pt is a 56 M w/ PMH HTN, HL, DM, CKD, and HIV on HAART who presented to ED with cardiopulmonary arrest. Pt is now intubated and sedated. Prior to arriving at the ED, pt had been complaining of wheezing and SOB. On arrival to ED, pt was in arrest and coded for five minutes.Pt currently being managed in ICU. CARDIO #s/p Cardiopulmonary arrest -pt coded in ED for >5 min -intubated, on vent: settings 28 RR/500 TV/40% FiO2/ PEEP 8 -Echo: moderate-severe LV dysfunction #HTN-uncontrolled -Continue Labetalol 10mg IVP q4h PRN -Continue Metoprolol 25 mg PO BID [facility] -Continue Metoprolol 5mg IVP q4h PRN -if BP continues to be elevated, may need change in regimen NEURO -Anoxic brain injury most likely 2/2 arrest -Head CT: loss of balderas/white junction, sulcal effacement, w/o signs of herniation -Continue Decadron 10 mg IVP q6h for decompression -Abnormal EEG -sedation vacations to assess mental status as tolerated #ID -HIV positive -pt sees Dr. Vital as outpt -HIV meds on hold for now -Leukocytosis 13.1 trending down from ~16 -abx have been stopped as fever most likely central NEPHRO -elevated BUN may be 2/2 to steroids -possible ATN 2/2 arrest -hx CKD -Continue to monitor BMP, UO #metabolic acidosis -continue bicarb gtt ENDOCRINE #DM -ISS -BGM #F/E/N on bicarb gtt Will monitor electrolytes Tube feeds #PPx -Hep SubQ BID- currently being held due to past hx bleed -Protonix gtt #Dispo Continued ICU management, unfortunately poor prognosis Visit type - Emergency Visit Emergency Visit: No - New Patient This patient is new to me today: Yes Date on this admission: 07/13/17 - Critical Care Critical Care patient: Yes Total Critical Care Time (in minutes): 42 Critical Care Statement: The care of this patient involved high complexity decision making to prevent further life threatening deterioration of the patient 's condition and/or to evaluate & treat vital organ system(s) failure or risk of failure.
--- NOTE | 2017-07-13 21:33 | PN ---
Progress Note, Physician History of Present Illness: No new changes Pt w/ poor prognosis - Current Medication List Current Medications: Active Medications Artificial Tears (Artificial Tears) 1 drop OU BID PRN PRN Reason: DRY EYES Dexamethasone Sodium Phosphate (Decadron Injection -) 10 mg IVPUSH Q6H-IV [facility] Last Admin: 07/13/17 20:11 Dose: 10 mg Heparin Sodium (Porcine) (Heparin -) 5,000 unit SQ TID [facility] Last Admin: 07/10/17 13:43 Dose: Not Given Propofol (Diprivan -) 1,000,000 mcg in 100 mls @ 2.807 mls/hr IVPB TITR [facility]; 5 MCG/KG/MIN PRN Reason: Protocol Last Admin: 07/13/17 14:49 Dose: 60 mcg/kg/min, 33.679 mls/hr Pantoprazole Sodium 80 mg/ (Sodium Chloride) 100 mls @ 10 mls/hr IVPB Q10H [facility] PRN Reason: 8 MG/HR Last Admin: 07/13/17 16:00 Dose: 10 mls/hr Sodium Bicarbonate 100 meq/ (Dextrose) 1,100 mls @ 50 mls/hr IV Q22H [facility] Last Admin: 07/13/17 14:00 Dose: 50 mls/hr Insulin Aspart (Novolog Vial Sliding Scale -) 1 vial SQ Q4HPO [facility] PRN Reason: Protocol Last Admin: 07/13/17 19:38 Dose: 6 units Labetalol HCl (Normodyne Injection -) 10 mg IVPUSH Q4H PRN PRN Reason: HYPERTENSION Last Admin: 07/12/17 14:59 Dose: 10 mg Metoprolol Tartrate (Lopressor -) 25 mg PO BID [facility] Last Admin: 07/13/17 09:33 Dose: 25 mg Metoprolol Tartrate (Lopressor Injection -) 5 mg IVPUSH Q4H PRN PRN Reason: HYPERTENSION Last Admin: 07/12/17 10:35 Dose: 5 mg - Objective Vital Signs: Vital Signs Temperature 101.2 F H 07/13/17 21:05 Pulse Rate 90 07/13/17 21:05 Respiratory Rate 28 H 07/13/17 21:05 Blood Pressure 135/106 07/13/17 21:05 O2 Sat by Pulse Oximetry (%) 100 07/13/17 20:51 HENT: Yes: Other ((+) ETT) Cardiovascular: Yes: WNL, Regular Rate and Rhythm Respiratory: Yes: Diminished Gastrointestinal: Yes: WNL, Normal Bowel Sounds, Soft Labs: CBC, BMP 07/13/17 13:50 07/13/17 13:50 INR, PTT INR 1.18 (0.82-1.09) H 07/06/17 05:00 Problem List - Problems (1) Respiratory failure Assessment/Plan: Poor prognosis ?Possible trach Code(s): J96.90 - RESPIRATORY FAILURE, UNSP, UNSP W HYPOXIA OR HYPERCAPNIA (2) Cardiopulmonary arrest with successful resuscitation Assessment/Plan: Pt remains intubated (+) troponin Pt w/ anoxic brain injury Cont IV decadron for cerebral edema Remains intubated ?Possible trach Code(s): I46.9 - CARDIAC ARREST, CAUSE UNSPECIFIED (3) Uncontrolled diabetes mellitus Assessment/Plan: Cont sliding scale w/ coverage Code(s): E11.65 - TYPE 2 DIABETES MELLITUS WITH HYPERGLYCEMIA (4) Acute on chronic diastolic CHF (congestive heart failure) Code(s): I50.33 - ACUTE ON CHRONIC DIASTOLIC (CONGESTIVE) HEART FAILURE
[2017-07-14] MEDS: PROPOFOL 1,000,000 MCG/100 ML VIAL IVPB SCH ×5 (02:00→23:10)
[2017-07-14] MEDS: DEXAMETHASONE SOD PHOSPHATE 10 MG/1 ML VIAL IVPUSH SCH ×4 (02:38→21:42)
[2017-07-14] MEDS: PANTOPRAZOLE SODIUM 80 MG in SODIUM CHLORIDE 100 ML IVPB SCH ×3 (02:39→20:49)
[2017-07-14] MEDS: INSULIN SLIDING SCALE (NOVOLOG) 1 VIAL SQ SCH ×5 (03:05→20:06)
[2017-07-14] MEDS: METOPROLOL TARTRATE 5 MG/5 ML VIAL IVPUSH PRN ×3 (04:52→13:26)
[2017-07-14] MEDS: DEXTROSE 5%-WATER - 1,000 ML with SODIUM BICARBONATE 8.4% - 100 MEQ IV SCH (04:55)
[2017-07-14] MEDS: HEPARIN NA (PORCINE) 5,000 UNITS/ML 1ML VIAL SQ SCH ×3 (05:09→21:42)
[2017-07-14 05:59] LABS: MCH 28.2 pg (25.7-33.7); MCHC 33.9 g/dl (32.0-35.9); MEAN CELL VOLUME 83.1 fl (80-96); MEAN PLT VOLUME 9.3 fl (7.5-11.1); PLATELET COUNT 299 K/MM3 (134-434); RDW 16.6 % (11.9-15.9); WHITE BLOOD COUNT 15.5 K/mm3 (4.0-10.0)
[2017-07-14 06:25] LABS: ANION GAP 21 (8-16); CALCIUM 7.3 mg/dL (8.5-10.1); CO2 13 mmol/L (21-32); PHOSPHOROUS 7.5 mg/dL (2.5-4.9)
[2017-07-14 06:28] LABS: MAGNESIUM 2.2 mg/dL (1.8-2.4)
[2017-07-14 06:29] LABS: GLUCOSE,RANDOM 465 mg/dL (74-106)
[2017-07-14] MEDS ORDERED: METOPROLOL TARTRATE 5 MG/5 ML VIAL ONE (09:09)
--- NOTE | 2017-07-14 09:18 | PN ---
Physical Exam: SUBJECTIVE: Patient seen and examined 24 hr events -101.7Ftmax fever, most likely central- tx with cooling blankets -Continued on propofol gtt -Restarted on tube feeds -Tachypneic, with shallow breathing -on vent: A/C : 16RR/ 500TV/40%Fi02/ PEEP 5 Today OBJECTIVE: Vital Signs Period Temp Pulse Resp BP Sys/Del Castillo Pulse Ox Last 24 Hr 99 F-101.7 F 77-114 18-35 123-190/76-110 100-100 GENERAL: The patient is awake, alert, and fully oriented, in no acute distress. HEAD: Normal with no signs of trauma. EYES: PERRL, extraocular movements intact, sclera anicteric, conjunctiva clear. No ptosis. ENT: Ears normal, nares patent, oropharynx clear without exudates, moist mucous membranes. NECK: Trachea midline, full range of motion, supple. LUNGS: Breath sounds equal, clear to auscultation bilaterally, no wheezes, no crackles, no accessory muscle use. HEART: Regular rate and rhythm, S1, S2 without murmur, rub or gallop. ABDOMEN: Soft, nontender, nondistended, normoactive bowel sounds, no guarding, no rebound, no hepatosplenomegaly, no masses. EXTREMITIES: 2+ pulses, warm, well-perfused, no edema. NEUROLOGICAL: Cranial nerves II through XII grossly intact. Normal speech, gait not observed. PSYCH: Normal mood, normal affect. SKIN: Warm, dry, normal turgor, no rashes or lesions noted Laboratory Results - last 24 hr 07/10/17 07/13/17 07/13/17 19:20 13:50 13:50 WBC 13.1 H RBC 4.29 Hgb 12.4 Hct 35.8 MCV 83.4 MCH 28.9 MCHC 34.6 RDW 16.4 H Plt Count 294 D MPV 9.2 Total Counted 100 Neutrophils % No Result Required. Neutrophils % (Manual) 86.0 H Lymphocytes % No Result Required. Lymphocytes % (Manual) 7.0 L D Monocytes % (Manual) 7 Platelet Estimate Adequate Sodium 140 Potassium 3.0 L Chloride 106 Carbon Dioxide 14 L Anion Gap 20 H BUN 100 H Creatinine 4.7 H Random Glucose 462 H* D Calcium 7.3 L Phosphorus 6.5 H Magnesium 2.3 Blood Type B POSITIVE Antibody Screen Negative Crossmatch See Detail 07/14/17 07/14/17 05:00 05:00 WBC 15.5 H RBC 4.36 Hgb 12.3 Hct 36.2 MCV 83.1 MCH 28.2 MCHC 33.9 RDW 16.6 H Plt Count 299 MPV 9.3 Total Counted Neutrophils % No Result Required. Neutrophils % (Manual) Lymphocytes % No Result Required. Lymphocytes % (Manual) Monocytes % (Manual) Platelet Estimate Sodium 141 Potassium 3.2 L Chloride 107 Carbon Dioxide 13 L Anion Gap 21 H BUN 96 H Creatinine 4.0 H Random Glucose 465 H* Calcium 7.3 L Phosphorus 7.5 H Magnesium 2.2 Blood Type Antibody Screen Crossmatch Active Medications Generic Name Dose Route Start Last Admin Trade Name Freq PRN Reason Stop Dose Admin Artificial Tears 1 drop 07/12/17 15:20 Artificial Tears OU BID PRN DRY EYES Dexamethasone Sodium Phosphate 10 mg 07/09/17 11:45 07/14/17 02:38 Decadron Injection - IVPUSH 10 mg Q6H-IV PAULINE Administration Heparin Sodium (Porcine) 5,000 unit 07/08/17 15:30 07/14/17 05:09 Heparin - SQ 5,000 unit TID PAULINE Administration Propofol 1,000,000 mcg in 100 mls @ 2.807 mls/hr 07/10/17 14:00 07/14/17 04: 43 Diprivan - IVPB 70 mcg/kg/min TITR PAULINE 39.292 mls/hr Protocol Administration 5 MCG/KG/MIN Pantoprazole Sodium 80 mg/ 100 mls @ 10 mls/hr 07/10/17 19:15 07/14/17 02:39 Sodium Chloride IVPB 10 mls/hr Q10H PAULINE Administration 8 MG/HR Sodium Bicarbonate 100 meq/ 1,100 mls @ 50 mls/hr 07/11/17 11:30 07/14/17 04: 55 Dextrose IV 50 mls/hr Q22H PAULINE Administration Insulin Aspart 1 vial 07/14/17 08:20 Novolog Vial Sliding Scale - SQ Q4HPO PAULINE Protocol Labetalol HCl 10 mg 07/09/17 11:12 07/12/17 14:59 Normodyne Injection - IVPUSH 10 mg Q4H PRN Administration HYPERTENSION Metoprolol Tartrate 25 mg 07/07/17 15:30 12/04/17 21:33 Lopressor - PO 25 mg BID PAULINE Administration Metoprolol Tartrate 5 mg 07/10/17 21:59 07/14/17 04:52 Lopressor Injection - IVPUSH 5 mg Q4H PRN Administration HYPERTENSION ASSESSMENT/PLAN:
[2017-07-14] MEDS: METOPROLOL TARTRATE 25 MG TABLET (FP) PO SCH (09:26)
--- NOTE | 2017-07-14 09:32 | PN ---
Progress Note (short form) - Note Progress Note: remains febrile intubated on propofol has had persistent fever despite antibiotics which have been stopped remains on decadron for cerebral edema Vital Signs Period Temp Pulse Resp BP Sys/Del Castillo Pulse Ox Last 24 Hr 99 F-101.7 F 77-114 18-35 123-190/76-110 100-100 cor-rrr lungs decreased bs at bases abd soft,nt ext no edema CBC, BMP 07/14/17 05:00 07/14/17 05:00 Microbiology 07/12/17 08:20 Blood Culture - Preliminary Blood - Peripheral Venous NO GROWTH OBTAINED AFTER 48 HOURS, INCUBATION TO CONTINUE FOR 3 DAYS. 07/12/17 08:30 Blood Culture - Preliminary Blood - Peripheral Venous NO GROWTH OBTAINED AFTER 48 HOURS, INCUBATION TO CONTINUE FOR 3 DAYS. 07/12/17 12:04 Gram Stain - Final Sputum - Endotrachea Suction/Ventilator Sputum Culture - Final Yeast Like Organism 07/12/17 12:04 Urine Culture - Final Urine - Urine Rocha NO GROWTH OBTAINED cxray no infiltrate Current Medications Artificial Tears (Artificial Tears) 1 drop OU BID PRN PRN Reason: DRY EYES Dexamethasone Sodium Phosphate (Decadron Injection -) 10 mg IVPUSH Q6H-IV PAULINE Last Admin: 07/14/17 09:26 Dose: 10 mg Heparin Sodium (Porcine) (Heparin -) 5,000 unit SQ TID PAULINE Last Admin: 07/14/17 05:09 Dose: 5,000 unit Propofol (Diprivan -) 1,000,000 mcg in 100 mls @ 2.807 mls/hr IVPB TITR PAULINE; 5 MCG/KG/MIN PRN Reason: Protocol Last Admin: 07/14/17 04:43 Dose: 70 mcg/kg/min, 39.292 mls/hr Pantoprazole Sodium 80 mg/ (Sodium Chloride) 100 mls @ 10 mls/hr IVPB Q10H PAULINE PRN Reason: 8 MG/HR Last Admin: 07/14/17 02:39 Dose: 10 mls/hr Sodium Bicarbonate 100 meq/ (Dextrose) 1,100 mls @ 50 mls/hr IV Q22H PAULINE Last Admin: 07/14/17 04:55 Dose: 50 mls/hr Insulin Aspart (Novolog Vial Sliding Scale -) 1 vial SQ Q4HPO PAULINE PRN Reason: Protocol Labetalol HCl (Normodyne Injection -) 10 mg IVPUSH Q4H PRN PRN Reason: HYPERTENSION Last Admin: 07/12/17 14:59 Dose: 10 mg Metoprolol Tartrate (Lopressor -) 25 mg PO BID PAULINE Last Admin: 07/14/17 09:26 Dose: 25 mg Metoprolol Tartrate (Lopressor Injection -) 5 mg IVPUSH Q4H PRN PRN Reason: HYPERTENSION Last Admin: 07/14/17 09:16 Dose: 5 mg a/p persistent fevers s/p cardiopulmonary arrest [id number] [id number] multiorgan failure d/w Dr Vital- felt to have central fevers at this time will observe off antibiotics repeat cultures are negative suspect leukocytosis is secondary to steroids
--- NOTE | 2017-07-14 09:43 | PN ---
Progress Note (short form) - Note Progress Note: Neurology History of Present Illness: Mr. Welch is a 56 y/o man w/ HTN, HL, DM, CKD, HIV on HAART, EF 49.5%, BIBA for SOB. Reportedly had been experiencing worsening SOB & SAMUELS w/ assoc wheezing for several days prior to admission. While in route developed further respiratory distress and in ER had agonal breathing and unresponsive. No pulse noted on stretcher transferand chest compressions were initiated. The Pt was resuscitated per ACLS protocol for approximately 5 minutes according to note, receiving epi x 2, bicarb x 2. Pt was intubated and placed on ventilator and given nebulizers and steroids. Pt admitted to the ICU s/p Cardiac Arrest and respiratory failure. The patient has been on propofol but having myoclonic twitches especially in right foot. Given his history, this is likely myoclonic jerks 2/2 to anoxic brain injury. Klonipin was started, twitching improved and not visible at this time. Patient having gagging on tube. There is minimal pupil contriction from 2mm to 1mm and therefore does not meet criteria for brain . However, only minimal brainstem activity and no significant improvement thus far. EEG completed, showed mix of theta and beta activity, consistent with encephalopathy. Again, not brain . CT head completed and showed cerebral edema, repeated and showed improved cerebral edema likely due to steroids given. Clinically without signficiant improvement. Spoke to resident about tapering Decadron. Attempts to wean propofol led to tachycardia and tachypnea. Physical Exam Vital Signs Period Temp Pulse Resp BP Sys/Del Castillo Pulse Ox Last 24 Hr 99 F-101.7 F 77-114 18-35 123-190/76-110 100-100 Constitutional: Yes: Well Nourished, No Distress, Calm Eyes: Yes: PERRL, Other (R Upward Lat Gaze.) HENT: Yes: WNL, Atraumatic, Normocephalic Neck: Yes: WNL, Supple, Trachea Midline Cardiovascular: Yes: WNL, Regular Rate and Rhythm Respiratory: Yes: Diminished, Mechanically Ventilated, Wheezes Gastrointestinal: Yes: Abdomen, Obese, Distention, Hyperactive Bowel Sounds ...Rectal Exam: Yes: Deferred Renal/: Yes: Rocha Present Breast(s): Yes: WNL Extremities: Yes: Other (Clubbed Fingers.) Edema: Yes Edema: LLE: 1+, RLE: 1+ Peripheral Pulses WNL: Yes Integumentary: Yes: WNL Neurological: No facial droop, not responding to pain, not gagging on suction, R pupil 2mm --> 1mm, no spontaneous movement, R foot myoclonic twitching noted CBCD WBC 15.5 K/mm3 (4.0-10.0) H 07/14/17 05:00 RBC 4.36 M/mm3 (4.00-5.60) 07/14/17 05:00 Hgb 12.3 GM/dL (11.7-16.9) 07/14/17 05:00 Hct 36.2 % (35.4-49) 07/14/17 05:00 MCV 83.1 fl (80-96) 07/14/17 05:00 MCHC 33.9 g/dl (32.0-35.9) 07/14/17 05:00 RDW 16.6 % (11.9-15.9) H 07/14/17 05:00 Plt Count 299 K/MM3 (134-434) 07/14/17 05:00 MPV 9.3 fl (7.5-11.1) 07/14/17 05:00 CMP Sodium 141 mmol/L (136-145) 07/14/17 05:00 Potassium 3.2 mmol/L (3.5-5.1) L 07/14/17 05:00 Chloride 107 mmol/L (98-107) 07/14/17 05:00 Carbon Dioxide 13 mmol/L (21-32) L 07/14/17 05:00 Anion Gap 21 (8-16) H 07/14/17 05:00 BUN 96 mg/dL (7-18) H 07/14/17 05:00 Creatinine 4.0 mg/dL (0.7-1.3) H 07/14/17 05:00 Creat Clearance w eGFR 12.60 (>60) 07/12/17 05:35 Calcium 7.3 mg/dL (8.5-10.1) L 07/14/17 05:00 Total Bilirubin 0.9 mg/dL (0.2-1.0) D 07/12/17 05:35 AST 31 U/L (15-37) 07/12/17 05:35 ALT 25 U/L (12-78) D 07/12/17 05:35 Alkaline Phosphatase 62 U/L (45-117) 07/12/17 05:35 Total Protein 6.8 g/dl (6.4-8.2) 07/12/17 05:35 Albumin 2.2 g/dl (3.4-5.0) L D 07/12/17 05:35 CT head X2 as above Plan: 56 y/o man w/ HTN, HL, DM, CKD, HIV on HAART, EF 49.5%, BIBA for SOB. Reportedly had been experiencing worsening SOB & SAMUELS w/ assoc wheezing for several days prior to admission. While in route developed further respiratory distress and in ER had agonal breathing and unresponsive. No pulse noted on stretcher transferand chest compressions were initiated. The Pt was resuscitated per ACLS protocol for approximately 5 minutes according to note, receiving epi x 2, bicarb x 2. Pt was intubated and placed on ventilator and given nebulizers and steroids. Pt admitted to the ICU s/p Cardiac Arrest and respiratory failure. The patient has been on propofol but having myoclonic twitches especially in right foot which have improved with Klonipin Given his history, this was likely myoclonic jerks 2/2 to anoxic brain injury and would require AEDS klonipin 1mg twice daily added and subsided Continue ICU care Continue Mechanical ventilation, wean as able Wean sedation as able Spiking fevers, possible central fevers, ID following Initial CT head with cerebral edema noted and loss of balderas white differentiation Repeat CT with cortical sulci more visible and less edema, though evidence of anoxic brain injury in basal ganglia EEG confirmed patient with brain activity, mix of delta and theta, consistent with encephalopathy Monitor mental status for any improvement Monitor blood pressure, support as required Decadron to be tapered Discussed with resident Critical Care Time 35 mins
[2017-07-14] MEDS: KCL 10 MEQ IVPB 10 MEQ/100 ML INFUS.BAG IVPB SCH ×6 (10:23→23:42)
[2017-07-14 12:37] LABS: PLATELET ESTIMATE ADEQUATE; TOTAL CELLS COUNTED 100
--- NOTE | 2017-07-14 12:59 | PN ---
Teaching Attending Note Name of Resident: Dione Hidalgo ATTENDING PHYSICIAN STATEMENT I saw and evaluated the patient. I reviewed the resident's note and discussed the case with the resident. I agree with the resident's findings and plan as documented. SUBJECTIVE: Pt seen and examined in the ICU. Clinically unchanged, remain intubated, sedated. Persistently febrile. OBJECTIVE: Last Vital Signs Temp Pulse Resp BP Pulse Ox 101.7 F H 110 H 31 H 190/95 100 07/14/17 08:00 07/14/17 09:16 07/14/17 12:04 07/14/17 09:16 07/14/17 08:49 Intake & Output 07/11/17 07/12/17 07/13/17 07/14/17 23:59 23:59 23:59 23:59 Intake Total 2482.8 3282 1516 1534 Output Total 4150 2150 3200 900 Balance -1667.2 1132 -1684 634 Weight 206 lb 2.115 oz 202 lb 9 oz 209 lb 6 oz 209 lb 8 oz Gen: intubated, sedated Heart: tachycardic, regular Lung: scattered rhonchi Abd: soft, nontender Ext: + edema CBC, BMP 07/14/17 05:00 07/14/17 05:00 Active Medications Artificial Tears (Artificial Tears) 1 drop OU BID PRN PRN Reason: DRY EYES Dexamethasone Sodium Phosphate (Decadron Injection -) 10 mg IVPUSH Q6H-IV PAULINE Last Admin: 07/14/17 09:26 Dose: 10 mg Heparin Sodium (Porcine) (Heparin -) 5,000 unit SQ TID PAULINE Last Admin: 07/14/17 05:09 Dose: 5,000 unit Propofol (Diprivan -) 1,000,000 mcg in 100 mls @ 2.807 mls/hr IVPB TITR PAULINE; 5 MCG/KG/MIN PRN Reason: Protocol Last Admin: 07/14/17 10:08 Dose: 80 mcg/kg/min, 44.905 mls/hr Pantoprazole Sodium 80 mg/ (Sodium Chloride) 100 mls @ 10 mls/hr IVPB Q10H PAULINE PRN Reason: 8 MG/HR Last Admin: 07/14/17 02:39 Dose: 10 mls/hr Sodium Bicarbonate 100 meq/ (Dextrose) 1,100 mls @ 50 mls/hr IV Q22H [facility] Last Admin: 07/14/17 04:55 Dose: 50 mls/hr Insulin Aspart (Novolog Vial Sliding Scale -) 1 vial SQ Q4HPO PAULINE PRN Reason: Protocol Last Admin: 07/14/17 11:00 Dose: 14 units Labetalol HCl (Normodyne Injection -) 10 mg IVPUSH Q4H PRN PRN Reason: HYPERTENSION Last Admin: 07/12/17 14:59 Dose: 10 mg Metoprolol Tartrate (Lopressor -) 25 mg PO BID [facility] Last Admin: 07/14/17 09:26 Dose: 25 mg Metoprolol Tartrate (Lopressor Injection -) 5 mg IVPUSH Q4H PRN PRN Reason: HYPERTENSION Last Admin: 07/14/17 09:16 Dose: 5 mg ASSESSMENT AND PLAN: s/p Cardiopulmonary Arrest Likely Anoxic Brain Injury Acute on Chronic Systolic Heart Failure +Troponins Acute on Chronic Renal Failure Lactic Acidosis resolved HTN HIV Hep C Smoker - completed empiric antibiotics - monitor urine output, creatinine - daily sedation vacations to assess mental status - taper FiO2 to keep SpO2 >90% - not a candidate for weaning due to poor mental status - enteral feeds - DVT/GI prophylaxis - poor overall prognosis for meaningful recovery, discussed with daughter at bedside, she states that pt would not want to be kept alive without quality of life critical care time spent in reviewing chart, evaluating patient and formulating plan 35 min
--- NOTE | 2017-07-14 15:17 | PN ---
Progress Note (short form) - Note Progress Note: CC: PEA arrest intubated/sedated, withdraws to stimulation. agitated/htn/tachycardic this am during sedation withdrawal. Current Medications Artificial Tears (Artificial Tears) 1 drop OU BID PRN PRN Reason: DRY EYES Dexamethasone Sodium Phosphate (Decadron Injection -) 10 mg IVPUSH Q6H-IV PAULINE Last Admin: 07/14/17 09:26 Dose: 10 mg Heparin Sodium (Porcine) (Heparin -) 5,000 unit SQ TID [facility] Last Admin: 07/14/17 13:29 Dose: 5,000 unit Propofol (Diprivan -) 1,000,000 mcg in 100 mls @ 2.807 mls/hr IVPB TITR PAULINE; 5 MCG/KG/MIN PRN Reason: Protocol Last Admin: 07/14/17 13:25 Dose: 80 mcg/kg/min, 44.905 mls/hr Pantoprazole Sodium 80 mg/ (Sodium Chloride) 100 mls @ 10 mls/hr IVPB Q10H PAULINE PRN Reason: 8 MG/HR Last Admin: 07/14/17 13:28 Dose: 10 mls/hr Sodium Bicarbonate 100 meq/ (Dextrose) 1,100 mls @ 50 mls/hr IV Q22H [facility] Last Admin: 07/14/17 04:55 Dose: 50 mls/hr Insulin Aspart (Novolog Vial Sliding Scale -) 1 vial SQ Q4HPO PAULINE PRN Reason: Protocol Last Admin: 07/14/17 14:00 Dose: 14 units Labetalol HCl (Normodyne Injection -) 10 mg IVPUSH Q4H PRN PRN Reason: HYPERTENSION Last Admin: 07/12/17 14:59 Dose: 10 mg Metoprolol Tartrate (Lopressor -) 25 mg PO BID [facility] Last Admin: 07/14/17 09:26 Dose: 25 mg Metoprolol Tartrate (Lopressor Injection -) 5 mg IVPUSH Q4H PRN PRN Reason: HYPERTENSION Last Admin: 07/14/17 13:26 Dose: 5 mg Vital Signs - 24 hr 07/13/17 07/13/17 07/13/17 16:00 16:24 18:45 Temperature 100.9 F H Pulse Rate 103 H Respiratory 26 H 25 H 35 H Rate Blood Pressure 181/96 O2 Sat by Pulse Oximetry (%) 07/13/17 07/13/17 07/13/17 19:00 20:00 20:51 Temperature 101.3 F H Pulse Rate 92 H 86 Respiratory 28 H 27 H 27 H Rate Blood Pressure 175/97 147/100 O2 Sat by Pulse 100 Oximetry (%) 07/13/17 07/13/17 07/13/17 21:05 21:30 22:00 Temperature 101.2 F H 100.9 F H Pulse Rate 90 92 H Respiratory 28 H 28 H 28 H Rate Blood Pressure 135/106 156/89 O2 Sat by Pulse Oximetry (%) 07/13/17 07/14/17 07/14/17 23:00 00:07 01:00 Temperature 100.4 F H 100 F H Pulse Rate 85 80 83 Respiratory 28 H 26 H 22 Rate Blood Pressure 151/91 165/91 169/90 O2 Sat by Pulse Oximetry (%) 07/14/17 07/14/17 07/14/17 02:00 03:00 04:52 Temperature 99 F 99.2 F Pulse Rate 77 90 107 H Respiratory 26 H 30 H Rate Blood Pressure 168/84 170/93 189/109 O2 Sat by Pulse Oximetry (%) 07/14/17 07/14/17 07/14/17 04:54 05:30 06:00 Temperature 99.8 F H Pulse Rate 108 H 108 H Respiratory 26 H 32 H 24 Rate Blood Pressure 189/109 186/110 O2 Sat by Pulse Oximetry (%) 07/14/17 07/14/17 07/14/17 07:35 08:00 08:15 Temperature 101.7 F H Pulse Rate 114 H Respiratory 30 H 29 H 30 H Rate Blood Pressure 190/96 O2 Sat by Pulse 100 Oximetry (%) 07/14/17 07/14/17 07/14/17 08:49 09:16 10:10 Temperature Pulse Rate 110 H Respiratory 30 H 16 Rate Blood Pressure 190/95 O2 Sat by Pulse 100 Oximetry (%) 07/14/17 07/14/17 12:04 13:26 Temperature Pulse Rate 110 H Respiratory 31 H Rate Blood Pressure 197/103 O2 Sat by Pulse Oximetry (%) Intake & Output 07/12/17 07/13/17 07/14/17 07/15/17 07:59 07:59 07:59 07:59 Intake Total 2684.8 3470 1534 Output Total 4000 1950 3200 Balance -1315.2 1520 -1666 Weight 202 lb 9 oz 209 lb 6 oz 209 lb 8 oz Constitutional: Yes: Well Nourished, No Distress, intubated, sedated. Eyes: No: Sclera Icterus Respiratory: Yes: mechanical breath sounds (anteriorly (pt intubated)). No: Accessory Muscle Use, Rales, Wheezes Gastrointestinal: Yes: Normal Bowel Sounds. No: Distention, Hepatomegaly, Palpable Mass, Tenderness Cardiovascular: Yes: tachcyardic, Regular Rate and Rhythm JVD: No Heart Sounds: Yes: S1, S2. No: Gallop Murmur: No: Systolic Murmur, Diastolic Murmurs) Extremities: No: Cool (feet), Cyanosis Edema: No Integumentary: No: Jaundice Neurological: No: sedated Psychiatric: No: Agitated CBC, BMP 07/14/17 05:00 07/14/17 05:00 EKG: Other (tele: NSR, sinus tach) Assessment/Plan cxr 07/12:no chf ECG #1: sinus tach, normal axis, +/- long QT (mild); no pathol q waves; borderline ischemic appearing ST depressions inferior leads and V6 (no old but this was not reported on 12/24 office ecg) #2: NSR, STs resolving #3: sinus tach with pvc's. new diffuse TWI, worst in precordial leads. prolonged qtc. #4: no signif change vs #3 MPI 05/26: no ischemia, EF 33% (global) Echo 06/2017: nl lv size. LV fn mod-sev reduced (global). nl rv size/fn. 1+ mr/ tr. rvsp 30-40. + pleural effusion. Echo 05/26 (): mod LVE, mild global LV hypo; nl RV; mild LAE; mild MR Echo 12/24: nl LV and RV, nl valves a/p: 56 yo smoker with h/o mild lv dysfunction, htn, hl, ckd, hiv, dm p/w progressive sob and subsequent PEA arrest with EMS (s/p resuscitation). acute hypoxic resp failure, acute on chronic syst CHF, NSTEMI, cardiac arrest ( PEA): -initially with marked chf on cxr in setting of several days of worsening sob -suspect PEA due to severe chf decompensation with acute hypoxia -suspected anoxic brain injury now, neuro following -cxr w/o chf, no clinical chf, did not respond to brief trial of lasix gtt -resting echo 05/26 with mild LV dysfunction, ? echo overestimaged EF (nuclear estimated EF 33%) -NSTEMI trop trend here with peak 1.3 ([id number] pattern) -ECG initially here with borderline ST changes for ischemia (likely secondary) -? underlying CAD with balanced ischemia on nuclear. -repeat echo here with worsened systolic function. (consider invasive ischemia eval (cath) if he were to make meaningful recovery.) -cont beta blockade -no NORRIS/ARB given profound FLORECITA -remains without suspected volume/chf--no diuresis -per critical care, may need trach vs compassionate wean from vent FLORECITA on CKD: -baseline creat here 2.8 in 05/26. initially 2.4 on presentation to ER, up to 6 here, not trending down -suspect hypoperfusion/atn as cause -holding lasix -renal following, lyte repletion per renal HTN: -bp suboptimal control, especially when sedation withdrawn. Will change metoprolol to coreg for higher bp effect. -cont bb HIV/Hep C: -per ID team anemia, gib: -likely ugib, now on ppi gtt -hgb improved s/p prbcs, remains stable
--- NOTE | 2017-07-14 15:19 | PN ---
Progress Note, Physician History of Present Illness: Pt seen and examined at bedside. He remains in the ICU. Pt remains intubated. He opens his eyes when sedation is held but does not follow commands. - Current Medication List Current Medications: Active Medications Artificial Tears (Artificial Tears) 1 drop OU BID PRN PRN Reason: DRY EYES Dexamethasone Sodium Phosphate (Decadron Injection -) 10 mg IVPUSH Q6H-IV PAULINE Last Admin: 07/14/17 09:26 Dose: 10 mg Heparin Sodium (Porcine) (Heparin -) 5,000 unit SQ TID PAULINE Last Admin: 07/14/17 13:29 Dose: 5,000 unit Propofol (Diprivan -) 1,000,000 mcg in 100 mls @ 2.807 mls/hr IVPB TITR PAULINE; 5 MCG/KG/MIN PRN Reason: Protocol Last Admin: 07/14/17 13:25 Dose: 80 mcg/kg/min, 44.905 mls/hr Pantoprazole Sodium 80 mg/ (Sodium Chloride) 100 mls @ 10 mls/hr IVPB Q10H PAULINE PRN Reason: 8 MG/HR Last Admin: 07/14/17 13:28 Dose: 10 mls/hr Sodium Bicarbonate 100 meq/ (Dextrose) 1,100 mls @ 50 mls/hr IV Q22H PAULINE Last Admin: 07/14/17 04:55 Dose: 50 mls/hr Insulin Aspart (Novolog Vial Sliding Scale -) 1 vial SQ Q4HPO PAULINE PRN Reason: Protocol Last Admin: 07/14/17 14:00 Dose: 14 units Labetalol HCl (Normodyne Injection -) 10 mg IVPUSH Q4H PRN PRN Reason: HYPERTENSION Last Admin: 07/12/17 14:59 Dose: 10 mg Metoprolol Tartrate (Lopressor -) 25 mg PO BID PAULINE Last Admin: 07/14/17 09:26 Dose: 25 mg Metoprolol Tartrate (Lopressor Injection -) 5 mg IVPUSH Q4H PRN PRN Reason: HYPERTENSION Last Admin: 07/14/17 13:26 Dose: 5 mg - Objective Vital Signs: Vital Signs Temperature 101.7 F H 07/14/17 08:00 Pulse Rate 110 H 07/14/17 13:26 Respiratory Rate 31 H 07/14/17 12:04 Blood Pressure 197/103 07/14/17 13:26 O2 Sat by Pulse Oximetry (%) 100 07/14/17 08:49 Constitutional: Yes: Calm Eyes: Yes: Conjunctiva Clear HENT: Yes: Atraumatic Neck: Yes: Supple Cardiovascular: Yes: S1, S2 Respiratory: Yes: Mechanically Ventilated Gastrointestinal: Yes: Soft Genitourinary: Yes: Rocha Present Musculoskeletal: Yes: Muscle Weakness Edema: Yes Edema: LUE: Trace, RUE: Trace, LLE: Trace, RLE: Trace Neurological: Yes: Lethargy Labs: CBC, BMP 07/14/17 05:00 07/14/17 05:00 INR, PTT INR 1.18 (0.82-1.09) H 07/06/17 05:00 - ....Imaging Chest X-ray: Report Reviewed Problem List - Problems (1) FLORECITA (acute kidney injury) Code(s): N17.9 - ACUTE KIDNEY FAILURE, UNSPECIFIED (2) CHF (congestive heart failure) Code(s): I50.9 - HEART FAILURE, UNSPECIFIED Qualifiers: Congestive heart failure type: unspecified congestive heart failure type Congestive heart failure chronicity: unspecified congestive heart failure chronicity Qualified Code(s): I50.9 - Heart failure, unspecified (3) Cardiopulmonary arrest with successful resuscitation Code(s): I46.9 - CARDIAC ARREST, CAUSE UNSPECIFIED (4) Chronic kidney disease Code(s): N18.9 - CHRONIC KIDNEY DISEASE, UNSPECIFIED (5) Hypertension Code(s): I10 - ESSENTIAL (PRIMARY) HYPERTENSION (6) Chronic kidney disease Code(s): N18.9 - CHRONIC KIDNEY DISEASE, UNSPECIFIED Assessment/Plan Current Medications Generic Name Dose Route Start Last Admin Trade Name Freq PRN Reason Stop Dose Admin Artificial Tears 1 drop 07/12/17 15:20 Artificial Tears OU BID PRN DRY EYES Dexamethasone Sodium Phosphate 10 mg 07/09/17 11:45 07/14/17 09:26 Decadron Injection - IVPUSH 10 mg Q6H-IV PAULINE Administration Heparin Sodium (Porcine) 5,000 unit 07/08/17 15:30 07/14/17 13:29 Heparin - SQ 5,000 unit TID PAULINE Administration Propofol 1,000,000 mcg in 100 mls @ 2.807 mls/hr 07/10/17 14:00 07/14/17 13: 25 Diprivan - IVPB 80 mcg/kg/min TITR PAULINE 44.905 mls/hr Protocol Administration 5 MCG/KG/MIN Pantoprazole Sodium 80 mg/ 100 mls @ 10 mls/hr 07/10/17 19:15 07/14/17 13:28 Sodium Chloride IVPB 10 mls/hr Q10H PAULINE Administration 8 MG/HR Sodium Bicarbonate 100 meq/ 1,100 mls @ 50 mls/hr 07/11/17 11:30 07/14/17 04: 55 Dextrose IV 50 mls/hr Q22H PAULINE Administration Insulin Aspart 1 vial 07/14/17 08:20 07/14/17 14:00 Novolog Vial Sliding Scale - SQ 14 units Q4HPO PAULINE Administration Protocol Labetalol HCl 10 mg 07/09/17 11:12 07/12/17 14:59 Normodyne Injection - IVPUSH 10 mg Q4H PRN Administration HYPERTENSION Metoprolol Tartrate 25 mg 07/07/17 15:30 07/14/17 09:26 Lopressor - PO 25 mg BID PAULINE Administration Metoprolol Tartrate 5 mg 07/10/17 21:59 07/14/17 13:26 Lopressor Injection - IVPUSH 5 mg Q4H PRN Administration HYPERTENSION Impression 1. FLORECITA 2. CKD 3. cardiac arrest 4. CHF 5. HIV 6. hypomagnesemia 7. anoxic brain injury 8. anemia 9. hyperglycemia 10. HTN Plan - cont to monitor renal function - consider increasing dose of metoprolol, discussed with ICU team - woud not restart lisinopril at this point - steroid can contribute to elevated bun - will need better glucose control - vent support - family are discussed GOC - likely ATN from hypotension during arrest, cont to monitor for recovery - daily sedation vacation to asses mental status - pt does have history of CKD - cont to monitor urine output - prognosis poor
--- NOTE | 2017-07-14 15:48 | PN ---
Physical Exam: SUBJECTIVE: Patient seen and examined at bedside. 24 hr events -Febrile 101.7F Tmax - most likely 2/2 central fever, tx with cooling blanket -on propofol gtt -started back on tube feeds Today -pt tachycardic, abdominal breathing, BP into 170/110's when off propofol- placed back on -For HTN, pt given multiple lopressor 10mg IVPs -no new changes in status -still intubated, sedated: A/C: 16RR/500TV/40% Fi02/PEEP5 -family at bedside OBJECTIVE: Vital Signs Period Temp Pulse Resp BP Sys/Del Castillo Pulse Ox Last 24 Hr 99 F-101.7 F 77-114 16-35 135-197/84-110 100-100 GENERAL: The patient is sedated, vented HEAD: Normal with no signs of trauma. EYES: PERRL, extraocular movements intact, sclera anicteric, conjunctiva clear. NECK: Trachea midline, supple. LUNGS: coarse breath sounds appreciated b/l, abdominal breathing when sedation was d/c HEART: Regular rate and rhythm, S1, S2 without murmur, rub or gallop. ABDOMEN: Soft, nontender, nondistended, normoactive bowel sounds EXTREMITIES: 2+ dorsalis pedis pulses, 1+ pitting edema b/l NEUROLOGICAL: unable to assess as pt sedated Laboratory Results - last 24 hr 07/10/17 07/13/17 07/14/17 19:20 13:50 05:00 WBC 15.5 H RBC 4.36 Hgb 12.3 Hct 36.2 MCV 83.1 MCH 28.2 MCHC 33.9 RDW 16.6 H Plt Count 299 MPV 9.3 Total Counted 100 100 Neutrophils % No Result Required. Neutrophils % (Manual) 86.0 H 92.0 H* Lymphocytes % No Result Required. Lymphocytes % (Manual) 7.0 L D 4.0 L D Monocytes % (Manual) 7 3 L Eosinophils % (Manual) 1.0 D Platelet Estimate Adequate Adequate Sodium Potassium Chloride Carbon Dioxide Anion Gap BUN Creatinine Random Glucose Calcium Phosphorus Magnesium Blood Type B POSITIVE Antibody Screen Negative Crossmatch See Detail 07/14/17 05:00 WBC RBC Hgb Hct MCV MCH MCHC RDW Plt Count MPV Total Counted Neutrophils % Neutrophils % (Manual) Lymphocytes % Lymphocytes % (Manual) Monocytes % (Manual) Eosinophils % (Manual) Platelet Estimate Sodium 141 Potassium 3.2 L Chloride 107 Carbon Dioxide 13 L Anion Gap 21 H BUN 96 H Creatinine 4.0 H Random Glucose 465 H* Calcium 7.3 L Phosphorus 7.5 H Magnesium 2.2 Blood Type Antibody Screen Crossmatch Active Medications Generic Name Dose Route Start Last Admin Trade Name Freq PRN Reason Stop Dose Admin Artificial Tears 1 drop 07/12/17 15:20 Artificial Tears OU BID PRN DRY EYES Dexamethasone Sodium Phosphate 10 mg 07/09/17 11:45 07/14/17 09:26 Decadron Injection - IVPUSH 10 mg Q6H-IV PAULINE Administration Heparin Sodium (Porcine) 5,000 unit 07/08/17 15:30 07/14/17 13:29 Heparin - SQ 5,000 unit TID PAULINE Administration Propofol 1,000,000 mcg in 100 mls @ 2.807 mls/hr 07/10/17 14:00 07/14/17 13: 25 Diprivan - IVPB 80 mcg/kg/min TITR PAULINE 44.905 mls/hr Protocol Administration 5 MCG/KG/MIN Pantoprazole Sodium 80 mg/ 100 mls @ 10 mls/hr 07/10/17 19:15 07/14/17 13:28 Sodium Chloride IVPB 10 mls/hr Q10H PAULINE Administration 8 MG/HR Sodium Bicarbonate 100 meq/ 1,100 mls @ 50 mls/hr 07/11/17 11:30 07/14/17 04: 55 Dextrose IV 50 mls/hr Q22H PAULINE Administration Insulin Aspart 1 vial 07/14/17 08:20 07/14/17 14:00 Novolog Vial Sliding Scale - SQ 14 units Q4HPO PAULINE Administration Protocol Labetalol HCl 10 mg 07/09/17 11:12 07/12/17 14:59 Normodyne Injection - IVPUSH 10 mg Q4H PRN Administration HYPERTENSION Metoprolol Tartrate 25 mg 07/07/17 15:30 07/14/17 09:26 Lopressor - PO 25 mg BID PAULINE Administration Metoprolol Tartrate 5 mg 07/10/17 21:59 07/14/17 13:26 Lopressor Injection - IVPUSH 5 mg Q4H PRN Administration HYPERTENSION ASSESSMENT/PLAN: Pt is a 56 M w/ PMH HTN, HL, DM, CKD, and HIV on HAART who presented to ED with cardiopulmonary arrest. Pt is now intubated and sedated. Prior to arriving at the ED, pt had been complaining of wheezing and SOB. On arrival to ED, pt was in arrest and coded for five minutes.Pt currently being managed in ICU. CARDIO #s/p Cardiopulmonary arrest -pt coded in ED for >5 min -intubated, on vent: settings 28 RR/500 TV/40% FiO2/ PEEP 8 -Echo: moderate-severe LV dysfunction #HTN-uncontrolled Currently on: - Labetalol 10mg IVP q4h PRN - Metoprolol 25 mg PO BID PAULINE - pt's BP has been elevated, would recommend changing regimen -either increasing basal dose of lopressor -adding agent such as procardia or amlodipine - discussed with Dr. Campuzano -Will also follow cardio recs NEURO -Anoxic brain injury most likely 2/2 arrest -Head CT: loss of balderas/white junction, sulcal effacement, w/o signs of herniation -Continue Decadron taper for decompression -Abnormal EEG -sedation vacations to assess mental status as tolerated #ID -HIV positive -pt sees Dr. Vital as outpatient -HIV meds on hold for now -abx have been stopped as fever most likely central NEPHRO -elevated BUN may be 2/2 to steroids -possible ATN 2/2 arrest -hx CKD -Continue to monitor BMP, UO #metabolic acidosis -continue bicarb gtt ENDOCRINE #DM -ISS -BGM #F/E/N on bicarb gtt Will monitor electrolytes Tube feeds #PPx -Hep SubQ BID -Protonix gtt #Dispo Continued ICU management, unfortunately poor prognosis Visit type - Emergency Visit Emergency Visit: No - New Patient This patient is new to me today: No - Critical Care Critical Care patient: Yes Total Critical Care Time (in minutes): 41 Critical Care Statement: The care of this patient involved high complexity decision making to prevent further life threatening deterioration of the patient 's condition and/or to evaluate & treat vital organ system(s) failure or risk of failure.
--- NOTE | 2017-07-14 16:01 | PN ---
Progress Note (short form) - Note Progress Note: Tube feeds were decreased in agreement with dietary recs in order to avoid refeeding syndrome. Pt should resume prior feed protocol tomorrow morning per dietary's recs. To resume the following tomorrow per dietary: Recommendations: Vital 1.2 @ 20cc/hr. Monitor tolerance to feeds and increase feeds slowly after 24 hours. As feeds are tolerated, change to volume based protocol. Target volume : 1200ml volume, 1440 kcals, 90g protein, 984ml additional propofol gives ~1000 kcals
--- NOTE | 2017-07-14 16:25 | PN ---
Physical Exam: SUBJECTIVE: Patient seen and examined in the ICU. OBJECTIVE: s/p PEA arrest Patient continues to have fever requiring cooling blankets, tmax 101.5 On Propofol Patient breathing against vent, abdominal muscle use BP elevated 200s systolic Remains sedated/intubated K. 3.2, repleted Vital Signs Period Temp Pulse Resp BP Sys/Del Castillo Pulse Ox Last 24 Hr 99 F-101.7 F 77-114 16-35 135-197/84-110 100-100 GENERAL: The patient intubated, sedated in ICU HEAD: Normal with no signs of trauma. ENT: Ears normal, nares patent, oropharynx clear without exudates NECK: Trachea midline, full range of motion, supple. LUNGS: diminished breath sounds anteriorly HEART: Regular rate and rhythm ABDOMEN: Soft, mildly distended EXTREMITIES: no edema. NEUROLOGICAL: unable to assess neuro status, pt is sedated, intubated PSYCH: Normal mood, normal affect. SKIN: Warm, dry, normal turgor, no rashes or lesions noted Laboratory Results - last 24 hr 07/10/17 07/14/17 07/14/17 19:20 05:00 05:00 WBC 15.5 H RBC 4.36 Hgb 12.3 Hct 36.2 MCV 83.1 MCH 28.2 MCHC 33.9 RDW 16.6 H Plt Count 299 MPV 9.3 Total Counted 100 Neutrophils % No Result Required. Neutrophils % (Manual) 92.0 H* Lymphocytes % No Result Required. Lymphocytes % (Manual) 4.0 L D Monocytes % (Manual) 3 L Eosinophils % (Manual) 1.0 D Platelet Estimate Adequate Sodium 141 Potassium 3.2 L Chloride 107 Carbon Dioxide 13 L Anion Gap 21 H BUN 96 H Creatinine 4.0 H POC Glucometer Random Glucose 465 H* Calcium 7.3 L Phosphorus 7.5 H Magnesium 2.2 Blood Type B POSITIVE Antibody Screen Negative Crossmatch See Detail 07/14/17 15:31 WBC RBC Hgb Hct MCV MCH MCHC RDW Plt Count MPV Total Counted Neutrophils % Neutrophils % (Manual) Lymphocytes % Lymphocytes % (Manual) Monocytes % (Manual) Eosinophils % (Manual) Platelet Estimate Sodium Potassium Chloride Carbon Dioxide Anion Gap BUN Creatinine POC Glucometer > 400 Random Glucose Calcium Phosphorus Magnesium Blood Type Antibody Screen Crossmatch Active Medications Generic Name Dose Route Start Last Admin Trade Name Freq PRN Reason Stop Dose Admin Acetaminophen 650 mg 07/14/17 16:02 Tylenol Oral Solution - PO Q6H PRN FEVER OR PAIN Artificial Tears 1 drop 07/12/17 15:20 Artificial Tears OU BID PRN DRY EYES Dexamethasone Sodium Phosphate 10 mg 07/09/17 11:45 07/14/17 09:26 Decadron Injection - IVPUSH 10 mg Q6H-IV PAULINE Administration Heparin Sodium (Porcine) 5,000 unit 07/08/17 15:30 07/14/17 13:29 Heparin - SQ 5,000 unit TID PAULINE Administration Propofol 1,000,000 mcg in 100 mls @ 2.807 mls/hr 07/10/17 14:00 07/14/17 13: 25 Diprivan - IVPB 80 mcg/kg/min TITR PAULINE 44.905 mls/hr Protocol Administration 5 MCG/KG/MIN Pantoprazole Sodium 80 mg/ 100 mls @ 10 mls/hr 07/10/17 19:15 07/14/17 13:28 Sodium Chloride IVPB 10 mls/hr Q10H PAULINE Administration 8 MG/HR Sodium Bicarbonate 100 meq/ 1,100 mls @ 50 mls/hr 07/11/17 11:30 07/14/17 04: 55 Dextrose IV 50 mls/hr Q22H PAULINE Administration Potassium Chloride 10 meq in 100 mls @ 100 mls/hr 07/14/17 16:00 Potassium Chloride 10 Meq Premix Ivpb - IVPB 07/14/17 17:59 Q60M [facility] Insulin Aspart 1 vial 07/14/17 08:20 07/14/17 14:00 Novolog Vial Sliding Scale - SQ 14 units Q4HPO PAULINE Administration Protocol Insulin Detemir 10 units 07/14/17 16:15 Levemir Vial SQ BIDAC [facility] Labetalol HCl 10 mg 07/09/17 11:12 07/12/17 14:59 Normodyne Injection - IVPUSH 10 mg Q4H PRN Administration HYPERTENSION Metoprolol Tartrate 25 mg 07/07/17 15:30 07/14/17 09:26 Lopressor - PO 25 mg BID PAULINE Administration Metoprolol Tartrate 5 mg 07/10/17 21:59 07/14/17 13:26 Lopressor Injection - IVPUSH 5 mg Q4H PRN Administration HYPERTENSION ASSESSMENT/PLAN: Patient is a 56 year old male with a significant past medical history of hypertension, hyperlipidemia, diabetes mellitus, CKD, and HIV. As per admission records, patient was brought into the hospital unresponsive/ no pulse and CPR was initiated per ACLS protocol. He was placed on a ventilator and admitted to the ICU. It was reported that, prior to hospitalization, patient was complaining of shortness of breath and wheezing. Imaging: Head CT 07/08/2017: diffuse decreased attenuation of the brainwith effacementof the cortical sulci and loss of the garcia-white matter junction compatible with brain edema. Head CT 07/12/2017: Interval significant decrease in the degree of previously described brain edema. No acute ICH. Cardiology/Pulmonary Presented in Cardiac/Pulmonary arrest to the ED CPR initiated as per ACLS protocol Intubated, sedated, on a vent Peep 8, fio2 40% s/p PEA arrest Hypertension, elevated BP with some improvement On Labetelol 10mg q4 IV push Lopressor 25mg PO via NGT Monitor BP, may need uptitration of meds as per cardiology Neurology: Anoxic brain injury as per CT head above, brain edema improving On Decadron 10mg IV push HIV+ HIV positive, HIV meds on hold ID following Renal: Acute Kidney Injury BUn/Creat elevated, creat 4.0 Renal following Endocrine: Diabetes Mellitus BGMs, Novolog Metabolic acidosis On a bicarb drip Monitor F.E.N. Fluids: on bicarb drip, NGT for feeds Electrolytes: K. 3.2, 2 K riders ordered Nutrition: NGT for feeds Prophylaxis: DVT: Heparin TID GI: Protonix drip Disposition. Requires ICU monitoring. Visit type - Emergency Visit Emergency Visit: Yes ED Registration Date: 07/05/17 Care time: The patient presented to the Emergency Department on the above date and was hospitalized for further evaluation of their emergent condition. - New Patient This patient is new to me today: Yes Date on this admission: 07/14/17 - Critical Care Critical Care patient: Yes Total Critical Care Time (in minutes): 60 Critical Care Statement: The care of this patient involved high complexity decision making to prevent further life threatening deterioration of the patient 's condition and/or to evaluate & treat vital organ system(s) failure or risk of failure.
[2017-07-14] MEDS ORDERED: INSULIN REGULAR 100 UNITS in SODIUM CHLORIDE 99 ML IVPB SCH (18:30)
--- NOTE | 2017-07-14 18:32 | PN ---
Progress Note (short form) - Note Progress Note: Upon review of patients morning labs, patient appears to be in DKA. Sugars have been poorly controlled on sliding scale, in the mid 400's every day, Anion Gap climbing up to 41, along with hypokalemia of 3.2. Bicarb is low but pauline improve once DKA resolves. Stopping sodium bicarb drip. Patient started on Insulin drip and K repletion, as well as IVF NS. Feeds stopped and D5 in medicine switched to NS. BGM q1h.
[2017-07-14] MEDS ORDERED: INSULIN REGULAR HUMAN 100 UNITS/ML *VIAL ONE (18:34)
[2017-07-14] MEDS ORDERED: SODIUM CHLORIDE 1,000 ML IV STA ×2 (18:39→18:44)
[2017-07-14] MEDS ORDERED: POTASSIUM CHLORIDE 40 MEQ in SODIUM CHLORIDE 1,000 ML IVPB ONE (19:00)
[2017-07-14] MEDS: INSULIN DETEMIR 100 UNITS/ML MDV SQ SCH ×2 (20:03→20:05)
[2017-07-14 20:27] LABS: ARTERIAL BLD GAS O2 SATURATION 97.5 % (90-98.9); ARTERIAL BLOOD GAS pH 7.35 (7.35-7.45)
[2017-07-14 20:40] LABS: ARTERIAL BLOOD GAS BASE EXCESS -12.7 meq/l (-2-2)
[2017-07-14 20:41] LABS: ALLENS TEST POSITIVE; ART PUNCT SITE RIGHT RADIAL; ARTERIAL BLOOD GAS HCO3 11.2 meq/L (22-26); PT. ON O2? YES
[2017-07-14 20:44] LABS: MECH. VENT. VENTILATOR; TYPE OF O2 FIO2 40%
[2017-07-14] MEDS ORDERED: KCL 10 MEQ IVPB 10 MEQ/100 ML INFUS.BAG IVPB ONE (20:45)
[2017-07-14] MEDS: SODIUM CHLORIDE 1,000 ML IV SCH (20:45)
[2017-07-14 21:04] LABS: URINE APPEARANCE CLEAR; URINE BILIRUBIN NEGATIVE (NEGATIVE); URINE BLOOD 1+ (NEGATIVE); URINE COLOR LTYELLOW; URINE GLUCOSE (UA) 3+ (NEGATIVE); URINE KETONE NEGATIVE (NEGATIVE); URINE NITRITE NEGATIVE (NEGATIVE); URINE UROBILINOGEN NEGATIVE mg/dL (0.2-1.0)
[2017-07-14 21:07] LABS: URINE PROTEIN 2+ (NEGATIVE)
[2017-07-14 21:08] LABS: URINE MUCUS RARE; URINE RBC 2 /hpf (0-3); URINE WBC 3 /hpf (3-5)
[2017-07-14 21:25] LABS: ALBUMIN 1.8 g/dl (3.4-5.0); ANION GAP 16 (8-16); BILIRUBIN,TOTAL 0.9 mg/dL (0.2-1.0); CO2 12 mmol/L (21-32); CREATININE 3.3 mg/dL (0.7-1.3); TOT PROT 5.8 g/dl (6.4-8.2)
[2017-07-14 21:26] LABS: ALK PHOS 52 U/L (45-117)
[2017-07-14] MEDS: CARVEDILOL 6.25 MG TABLET (FP) PO SCH (21:42)
[2017-07-14 21:55] LABS: CALCIUM 6.5 mg/dL (8.5-10.1); SGOT/AST 30 U/L (15-37); SGPT/ALT 21 U/L (12-78)
[2017-07-14 21:56] LABS: GLUCOSE,RANDOM 423 mg/dL (74-106)
[2017-07-14] MEDS ORDERED: POTASSIUM CHLORIDE ORAL LIQUID 20 MEQ/15 ML PO ONE (22:00)
[2017-07-14 22:57] LABS: URINE LEUK ESTERASE Negative (NEGATIVE)
[2017-07-15 00:26] LABS: ARTERIAL BLD GAS O2 SATURATION 97.8 % (90-98.9); ARTERIAL BLOOD GAS pH 7.29 (7.35-7.45)
[2017-07-15 00:33] LABS: ART PUNCT SITE RIGHT RADIAL
[2017-07-15 00:36] LABS: VENT RATE 16; VT/PRESS 500
[2017-07-15 00:38] LABS: LPM/O2% 30%
[2017-07-15 00:40] LABS: ARTERIAL BLOOD GAS BASE EXCESS -14.2 meq/l (-2-2); ARTERIAL BLOOD GAS HCO3 10.6 meq/L (22-26)
[2017-07-15] MEDS ORDERED: HEMOQUE CONTROL SOLUTION ONE (01:03)
[2017-07-15] MEDS: PANTOPRAZOLE SODIUM 80 MG in SODIUM CHLORIDE 100 ML IVPB SCH ×4 (01:20→22:12)
[2017-07-15] MEDS: KCL 10 MEQ IVPB 10 MEQ/100 ML INFUS.BAG IVPB SCH (01:20)
[2017-07-15 02:01] LABS: ANION GAP 17 (8-16); CALCIUM 7.3 mg/dL (8.5-10.1); CO2 12 mmol/L (21-32); CREATININE 3.3 mg/dL (0.7-1.3); GLUCOSE,RANDOM 268 mg/dL (74-106)
[2017-07-15] MEDS: DEXAMETHASONE SOD PHOSPHATE 10 MG/1 ML VIAL IVPUSH SCH ×3 (02:51→14:55)
[2017-07-15] MEDS: PROPOFOL 1,000,000 MCG/100 ML VIAL IVPB SCH ×4 (03:00→22:12)
[2017-07-15] MEDS: SODIUM CHLORIDE 1,000 ML IV SCH (05:00)
[2017-07-15 05:52] LABS: BASO % 0.1 % (0-2.0); EOS % 0.2 % (0-4.5); MCH 27.9 pg (25.7-33.7); MCHC 33.4 g/dl (32.0-35.9); MEAN CELL VOLUME 83.3 fl (80-96); MEAN PLT VOLUME 9.7 fl (7.5-11.1); NEUT % 86.3 % (42.8-82.8); PLATELET COUNT 262 K/MM3 (134-434); RDW 17.2 % (11.9-15.9); WHITE BLOOD COUNT 18.5 K/mm3 (4.0-10.0)
[2017-07-15 06:16] LABS: ANION GAP 15 (8-16); CALCIUM 7.4 mg/dL (8.5-10.1); CO2 12 mmol/L (21-32); CREATININE 3.3 mg/dL (0.7-1.3); GLUCOSE,RANDOM 241 mg/dL (74-106)
[2017-07-15 06:17] LABS: PHOSPHOROUS 4.5 mg/dL (2.5-4.9)
[2017-07-15] MEDS: HEPARIN NA (PORCINE) 5,000 UNITS/ML 1ML VIAL SQ SCH ×3 (06:39→22:10)
--- NOTE | 2017-07-15 07:26 | PN ---
Progress Note, Physician Chief Complaint: ID Remains comatose on the ventilator Antibiotics were discontinues in light of persistant fevers on steroids thought to be central in origin - Current Medication List Current Medications: Active Medications Acetaminophen (Tylenol Oral Solution -) 650 mg PO Q6H PRN PRN Reason: FEVER OR PAIN Artificial Tears (Artificial Tears) 1 drop OU BID PRN PRN Reason: DRY EYES Carvedilol (Coreg -) 6.25 mg PO BID PAULINE Last Admin: 07/14/17 21:42 Dose: 6.25 mg Dexamethasone Sodium Phosphate (Decadron Injection -) 10 mg IVPUSH Q6H-IV PAULINE Last Admin: 07/15/17 02:51 Dose: 10 mg Heparin Sodium (Porcine) (Heparin -) 5,000 unit SQ TID PAULINE Last Admin: 07/15/17 06:39 Dose: 5,000 unit Propofol (Diprivan -) 1,000,000 mcg in 100 mls @ 2.807 mls/hr IVPB TITR PAULINE; 5 MCG/KG/MIN PRN Reason: Protocol Last Admin: 07/15/17 06:40 Dose: 45.96 mcg/kg/min, 25.798 mls/hr Pantoprazole Sodium 80 mg/ (Sodium Chloride) 100 mls @ 10 mls/hr IVPB Q10H PAULINE PRN Reason: 8 MG/HR Last Admin: 07/15/17 06:41 Dose: 10 mls/hr Insulin Human Regular 100 (units/ Sodium Chloride) 100 mls @ 9.5 mls/hr IVPB TITR PAULINE; 0.1 UNITS/KG/HR PRN Reason: Protocol Last Titration: 07/15/17 01:00 Dose: 0.04 units/kg/hr, 4 mls/hr Sodium Chloride (Normal Saline -) 1,000 mls @ 150 mls/hr IV ASDIR PAULINE Last Admin: 07/15/17 05:00 Dose: 150 mls/hr Labetalol HCl (Normodyne Injection -) 10 mg IVPUSH Q4H PRN PRN Reason: HYPERTENSION Last Admin: 07/12/17 14:59 Dose: 10 mg Metoprolol Tartrate (Lopressor Injection -) 5 mg IVPUSH Q4H PRN PRN Reason: HYPERTENSION Last Admin: 07/14/17 13:26 Dose: 5 mg - Objective Vital Signs: Vital Signs Temperature 98.9 F 07/15/17 04:00 Pulse Rate 90 07/15/17 04:00 Respiratory Rate 31 H 07/15/17 06:53 Blood Pressure 136/59 07/15/17 04:00 O2 Sat by Pulse Oximetry (%) 100 07/14/17 22:06 Cardiovascular: Yes: Regular Rate and Rhythm, S1, S2. No: Murmur Respiratory: Yes: WNL, Regular, CTA Bilaterally Gastrointestinal: Yes: Soft Edema: No Labs: CBC, BMP 07/15/17 05:30 07/15/17 05:30 INR, PTT INR 1.18 (0.82-1.09) H 07/06/17 05:00 Problem List - Problems (1) Cardiopulmonary arrest with successful resuscitation Code(s): I46.9 - CARDIAC ARREST, CAUSE UNSPECIFIED (2) Uncontrolled diabetes mellitus Code(s): E11.65 - TYPE 2 DIABETES MELLITUS WITH HYPERGLYCEMIA (3) Sepsis Code(s): A41.9 - SEPSIS, UNSPECIFIED ORGANISM (4) Chronic kidney disease Code(s): N18.9 - CHRONIC KIDNEY DISEASE, UNSPECIFIED (5) Hypertension Code(s): I10 - ESSENTIAL (PRIMARY) HYPERTENSION Assessment/Plan Microbiology 07/12/17 12:04 Urine - Urine Rocha Urine Culture - Final NO GROWTH OBTAINED 07/12/17 12:04 Sputum - Endotrachea Suction/Ventilator Gram Stain - Final 07/12/17 12:04 Sputum - Endotrachea Suction/Ventilator Sputum Culture - Final Yeast Like Organism 07/05/17 21:10 Sputum - Endotrachea Suction/Ventilator Gram Stain - Final 07/05/17 21:10 Sputum - Endotrachea Suction/Ventilator Sputum Culture - Final Staphylococcus Aureus Strep Agalactiae Group B 07/12/17 08:30 Blood - Peripheral Venous Blood Culture - Preliminary NO GROWTH OBTAINED AFTER 48 HOURS, INCUBATION TO CONTINUE FOR 3 DAYS. 07/12/17 08:20 Blood - Peripheral Venous Blood Culture - Preliminary NO GROWTH OBTAINED AFTER 48 HOURS, INCUBATION TO CONTINUE FOR 3 DAYS. Laboratory Tests 07/14/17 07/15/17 07/15/17 20:30 01:00 05:30 WBC 18.5 H Hgb 11.5 L Hct 34.5 L Plt Count 262 BUN Creatinine Random Glucose 423 H* 268 H D 07/15/17 05:30 WBC Hgb Hct Plt Count BUN 90 H Creatinine 3.3 H Random Glucose 241 H Assessment S/P cardiopulmonary arrest with anoxic brain injury Fevers thought to be central Leukocytosis secondary to Decadron Acute and chronic renal failure HIV infection Diabetes poorly controlled HPTN Plan Receiving maximal medical care from all disciplines Amanuel ROJAS
--- NOTE | 2017-07-15 09:41 | PN ---
Progress Note (short form) - Note Progress Note: Neurology History of Present Illness: Mr. Welch is a 56 y/o man w/ HTN, HL, DM, CKD, HIV on HAART, EF 49.5%, BIBA for SOB. Reportedly had been experiencing worsening SOB & SAMUELS w/ assoc wheezing for several days prior to admission. While in route developed further respiratory distress and in ER had agonal breathing and unresponsive. No pulse noted on stretcher transferand chest compressions were initiated. The Pt was resuscitated per ACLS protocol for approximately 5 minutes according to note, receiving epi x 2, bicarb x 2. Pt was intubated and placed on ventilator and given nebulizers and steroids. Pt admitted to the ICU s/p Cardiac Arrest and respiratory failure. The patient has been on propofol but having myoclonic twitches especially in right foot. Given his history, this is likely myoclonic jerks 2/2 to anoxic brain injury. Klonipin was started, twitching improved and not visible at this time. Patient having gagging on tube. There is minimal pupil contriction from 2mm to 1mm and therefore does not meet criteria for brain . However, only minimal brainstem activity and no significant improvement thus far. EEG completed, showed mix of theta and beta activity, consistent with encephalopathy. Again, not brain . CT head completed and showed cerebral edema, repeated and showed improved cerebral edema likely due to steroids given. Clinically without signficiant improvement. Spoke to resident about tapering Decadron yesterday and was to be cut in half each day. Attempts to wean propofol led to tachycardia and tachypnea. Spoke to nurse this AM and again propofol reduction led to tachypnea into the 40's and 50's though is overbreathing the vent. No significant neurologic improvement. Physical Exam Vital Signs Temperature 98.9 F 07/15/17 04:00 Pulse Rate 97 H 07/15/17 08:00 Respiratory Rate 25 H 07/15/17 08:52 Blood Pressure 131/72 07/15/17 08:00 O2 Sat by Pulse Oximetry (%) 100 07/15/17 08:52 Constitutional: Yes: Well Nourished, No Distress, Calm Eyes: Yes: PERRL, Other (R Upward Lat Gaze.) HENT: Yes: WNL, Atraumatic, Normocephalic Neck: Yes: WNL, Supple, Trachea Midline Cardiovascular: Yes: WNL, Regular Rate and Rhythm Respiratory: Yes: Diminished, Mechanically Ventilated, Wheezes Gastrointestinal: Yes: Abdomen, Obese, Distention, Hyperactive Bowel Sounds ...Rectal Exam: Yes: Deferred Renal/: Yes: Rocha Present Breast(s): Yes: WNL Extremities: Yes: Other (Clubbed Fingers.) Edema: Yes Edema: LLE: 1+, RLE: 1+ Peripheral Pulses WNL: Yes Integumentary: Yes: WNL Neurological: No facial droop, not responding to pain, not gagging on suction, R pupil 2mm --> 1mm, no spontaneous movement, R foot myoclonic twitching noted CBCD WBC 18.5 K/mm3 (4.0-10.0) H 07/15/17 05:30 RBC 4.14 M/mm3 (4.00-5.60) 07/15/17 05:30 Hgb 11.5 GM/dL (11.7-16.9) L 07/15/17 05:30 Hct 34.5 % (35.4-49) L 07/15/17 05:30 MCV 83.3 fl (80-96) 07/15/17 05:30 MCHC 33.4 g/dl (32.0-35.9) 07/15/17 05:30 RDW 17.2 % (11.9-15.9) H 07/15/17 05:30 Plt Count 262 K/MM3 (134-434) 07/15/17 05:30 MPV 9.7 fl (7.5-11.1) 07/15/17 05:30 CMP Sodium 145 mmol/L (136-145) 07/15/17 05:30 Potassium 4.0 mmol/L (3.5-5.1) 07/15/17 05:30 Chloride 118 mmol/L (98-107) H 07/15/17 05:30 Carbon Dioxide 12 mmol/L (21-32) L 07/15/17 05:30 Anion Gap 15 (8-16) 07/15/17 05:30 BUN 90 mg/dL (7-18) H 07/15/17 05:30 Creatinine 3.3 mg/dL (0.7-1.3) H 07/15/17 05:30 Creat Clearance w eGFR 19.42 (>60) 07/14/17 20:30 Calcium 7.4 mg/dL (8.5-10.1) L 07/15/17 05:30 Total Bilirubin 0.9 mg/dL (0.2-1.0) 07/14/17 20:30 AST 30 U/L (15-37) 07/14/17 20:30 ALT 21 U/L (12-78) 07/14/17 20:30 Alkaline Phosphatase 52 U/L (45-117) 07/14/17 20:30 Total Protein 5.8 g/dl (6.4-8.2) L 07/14/17 20:30 Albumin 1.8 g/dl (3.4-5.0) L 07/14/17 20:30 CT head X2 as above Plan: 56 y/o man w/ HTN, HL, DM, CKD, HIV on HAART, EF 49.5%, BIBA for SOB. Reportedly had been experiencing worsening SOB & SAMUELS w/ assoc wheezing for several days prior to admission. While in route developed further respiratory distress and in ER had agonal breathing and unresponsive. No pulse noted on stretcher transferand chest compressions were initiated. The Pt was resuscitated per ACLS protocol for approximately 5 minutes according to note, receiving epi x 2, bicarb x 2. Pt was intubated and placed on ventilator and given nebulizers and steroids. Pt admitted to the ICU s/p Cardiac Arrest and respiratory failure. The patient has been on propofol but having myoclonic twitches especially in right foot which have improved with Klonipin Given his history, this was likely myoclonic jerks 2/2 to anoxic brain injury and would require AEDS klonipin 1mg twice daily added and subsided Continue ICU care Continue Mechanical ventilation, wean as able Spiking fevers, possible central fevers, ID following Decadron to be tapered, resident made aware Initial CT head with cerebral edema noted and loss of balderas white differentiation Repeat CT with cortical sulci more visible and less edema, though evidence of anoxic brain injury in basal ganglia EEG confirmed patient with brain activity, mix of delta and theta, consistent with encephalopathy Monitor mental status for any improvement Monitor blood pressure, support as required No significant clinical improvement thus far Critical Care Time 35 mins
[2017-07-15] MEDS: CARVEDILOL 6.25 MG TABLET (FP) PO SCH ×2 (09:55→22:11)
[2017-07-15] MEDS ORDERED: HEMOQUE TEST 1 EACH EACH ONE (10:43)
--- NOTE | 2017-07-15 11:54 | PN ---
Progress Note (short form) - Note Progress Note: CC: SOB/cardiac arrest. s: remains intubated/sedated, no overnight events, fam considering trach Current Medications Generic Name Dose Route Start Last Admin Trade Name Freq PRN Reason Stop Dose Admin Acetaminophen 650 mg 07/14/17 16:02 Tylenol Oral Solution - PO Q6H PRN FEVER OR PAIN Artificial Tears 1 drop 07/12/17 15:20 Artificial Tears OU BID PRN DRY EYES Carvedilol 6.25 mg 07/14/17 22:00 07/15/17 09:55 Coreg - PO 6.25 mg BID PAULINE Administration Dexamethasone Sodium Phosphate 10 mg 07/09/17 11:45 07/15/17 09:55 Decadron Injection - IVPUSH 10 mg Q6H-IV PAULINE Administration Heparin Sodium (Porcine) 5,000 unit 07/08/17 15:30 07/15/17 06:39 Heparin - SQ 5,000 unit TID PAULINE Administration Propofol 1,000,000 mcg in 100 mls @ 2.807 mls/hr 07/10/17 14:00 07/15/17 06: 40 Diprivan - IVPB 45.96 mcg/kg/min TITR PAULINE 25.798 mls/hr Protocol Administration 5 MCG/KG/MIN Pantoprazole Sodium 80 mg/ 100 mls @ 10 mls/hr 07/10/17 19:15 07/15/17 06:41 Sodium Chloride IVPB 10 mls/hr Q10H PAULINE Administration 8 MG/HR Insulin Human Regular 100 100 mls @ 9.5 mls/hr 07/14/17 18:30 07/15/17 01:00 units/ Sodium Chloride IVPB 0.04 units/kg/hr TITR PAULINE 4 mls/hr Protocol Titration 0.1 UNITS/KG/HR Sodium Chloride 1,000 mls @ 150 mls/hr 07/14/17 18:45 07/15/17 05:00 Normal Saline - IV 150 mls/hr ASDIR PAULINE Administration Labetalol HCl 10 mg 07/09/17 11:12 07/12/17 14:59 Normodyne Injection - IVPUSH 10 mg Q4H PRN Administration HYPERTENSION Metoprolol Tartrate 5 mg 07/10/17 21:59 07/14/17 13:26 Lopressor Injection - IVPUSH 5 mg Q4H PRN Administration HYPERTENSION Vital Signs Temp 100.3 F H 07/15/17 10:00 Pulse 87 07/15/17 11:26 Resp 18 07/15/17 10:00 BP 146/65 07/15/17 10:00 Pulse Ox 100 07/15/17 11:26 Intake & Output 07/14/17 07/14/17 07/15/17 11:59 23:59 11:59 Intake Total 1534 1352 1322 Output Total 900 2000 300 Balance 634 -648 1022 Weight 209 lb 8 oz 208 lb 9.6 oz Intake: IV 972 1152 1322 DIPRIVAN - 1,000,000 mcg 351 172 182 In 100 ml @ 5 MCG/KG/MIN 2.807 mls/hr IVPB TITR PAULINE Rx#:[id number] NOVOLIN R VIAL *For 30 20 IVPUSH or IV DRIP Only* 100 UNITS In Normal Saline - 99 ml @ 0.1 UNITS/KG/HR 9.5 mls/hr IVPB TITR PAULINE Rx#: [id number] Normal Saline - 1,000 ml 300 1050 @ 150 mls/hr IV ASDIR PAULINE Rx#:[id number] bicarb gtt 519 480 protonix gtt 102 170 70 IVPB 162 200 Tube Feeding 400 0 Output: Urine 900 2000 300 Rocha 900 2000 300 Other: Voiding Method Indwelling Catheter Indwelling Catheter Indwelling Catheter Bowel Movement Yes: flexiseal Yes Weight Measurement Method Built in [facility] Built in [facility] Constitutional: Yes: Well Nourished, No Distress, intubated, sedated. Eyes: No: Sclera Icterus Respiratory: Yes: mechanical breath sounds (anteriorly (pt intubated)). No: Accessory Muscle Use, Rales, Wheezes Gastrointestinal: Yes: Normal Bowel Sounds. No: Distention, Hepatomegaly, Palpable Mass, Tenderness Cardiovascular: Yes: tachcyardic, Regular Rate and Rhythm JVD: No Heart Sounds: Yes: S1, S2. No: Gallop Murmur: No: Systolic Murmur, Diastolic Murmurs) Extremities: No: Cool (feet), Cyanosis Edema: No Integumentary: No: Jaundice Neurological: No: sedated Psychiatric: No: Agitated - Other Data Labs, Other Data: Laboratory Last Values WBC 18.5 K/mm3 (4.0-10.0) H 07/15/17 05:30 RBC 4.14 M/mm3 (4.00-5.60) 07/15/17 05:30 Hgb 11.5 GM/dL (11.7-16.9) L 07/15/17 05:30 Hct 34.5 % (35.4-49) L 07/15/17 05:30 MCV 83.3 fl (80-96) 07/15/17 05:30 MCH 27.9 pg (25.7-33.7) 07/15/17 05:30 MCHC 33.4 g/dl (32.0-35.9) 07/15/17 05:30 RDW 17.2 % (11.9-15.9) H 07/15/17 05:30 Plt Count 262 K/MM3 (134-434) 07/15/17 05:30 MPV 9.7 fl (7.5-11.1) 07/15/17 05:30 Total Counted 100 07/14/17 05:00 Neutrophils % 86.3 % (42.8-82.8) H 07/15/17 05:30 Neutrophils % (Manual) 92.0 % (42.8-82.8) H* 07/14/17 05:00 Band Neutrophils % 1.0 % 07/08/17 05:15 Lymphocytes % 9.1 % (8-40) D 07/15/17 05:30 Lymphocytes % (Manual) 4.0 % (8-40) L D 07/14/17 05:00 Monocytes % 4.3 % (3.8-10.2) 07/15/17 05:30 Monocytes % (Manual) 3 % (3.8-10.2) L 07/14/17 05:00 Eosinophils % 0.2 % (0-4.5) D 07/15/17 05:30 Eosinophils % (Manual) 1.0 % (0-4.5) D 07/14/17 05:00 Basophils % 0.1 % (0-2.0) 07/15/17 05:30 Basophils % (Manual) 0.0 % (0-2.0) 07/07/17 05:00 Manual Slide Review No Result Required. 07/06/17 05:00 Platelet Estimate Adequate 07/14/17 05:00 Platelet Comment No clumping noted 07/07/17 05:00 PT with INR 13.30 SEC (9.98-11.88) H 07/06/17 05:00 INR 1.18 (0.82-1.09) H 07/06/17 05:00 PTT (Actin FS) 20.4 SECONDS (26.9-34.4) L 07/05/17 00:45 Anticoagulation Therapy Y 07/15/17 00:15 Puncture Site Right radial 07/15/17 00:15 Patient Temperature 101.3 07/08/17 09:49 ABG pH 7.29 (7.35-7.45) L 07/15/17 00:15 ABG pCO2 at Pt Temp 22.5 mmHg (35-45) L 07/15/17 00:15 ABG pO2 at Pt Temp 119.0 mmHg (80-100) H D 07/15/17 00:15 ABG HCO3 10.6 meq/L (22-26) L* 07/15/17 00:15 ABG O2 Sat (Measured) 97.8 % (90-98.9) 07/15/17 00:15 ABG O2 Content 16.6 % vol (15-22) 07/15/17 00:15 ABG Base Excess -14.2 meq/l (-2-2) L* 07/15/17 00:15 Sorin Test Y 07/15/17 00:15 VBG pH 6.98 (7.32-7.42) L* 07/05/17 01:00 POC VBG pCO2 69.6 mmHg (38-52) H* 07/05/17 01:00 POC VBG pO2 49.8 mmHg (28-48) H 07/05/17 01:00 Mixed VBG HCO3 15.6 meq/L (19-25) L 07/05/17 01:00 Carboxyhemoglobin 0.2 gm% (0.5-2.0) L 07/05/17 06:00 Methemoglobin 1.0 % (0.4-1.5) 07/05/17 06:00 O2 Delivery Device Y 07/15/17 00:15 Oxygen Flow Rate 30% 07/15/17 00:15 Vent Mode Y 07/15/17 00:15 Vent Rate 16 07/15/17 00:15 Mechanical Rate Y 07/15/17 00:15 PEEP 5.0 cmH2O 07/15/17 00:15 Pressure Support Vent 500 07/15/17 00:15 Sodium 145 mmol/L (136-145) 07/15/17 05:30 Potassium 4.0 mmol/L (3.5-5.1) 07/15/17 05:30 Chloride 118 mmol/L (98-107) H 07/15/17 05:30 Carbon Dioxide 12 mmol/L (21-32) L 07/15/17 05:30 Anion Gap 15 (8-16) 07/15/17 05:30 BUN 90 mg/dL (7-18) H 07/15/17 05:30 Creatinine 3.3 mg/dL (0.7-1.3) H 07/15/17 05:30 Creat Clearance w eGFR 19.42 (>60) 07/14/17 20:30 POC Glucometer 230.44587 UNITS (80-120) 07/15/17 10:39 Random Glucose 241 mg/dL (74-106) H 07/15/17 05:30 Fasting Glucose 535 mg/dL (70-105) H* 07/14/17 14:45 Lactic Acid 0.1 mmol/L (0.4-2.0) L 07/11/17 08:00 Calcium 7.4 mg/dL (8.5-10.1) L 07/15/17 05:30 Phosphorus 4.5 mg/dL (2.5-4.9) D 07/15/17 05:30 Magnesium 2.0 mg/dL (1.8-2.4) 07/15/17 05:30 Total Bilirubin 0.9 mg/dL (0.2-1.0) 07/14/17 20:30 Direct Bilirubin 0.4 mg/dL (0.0-0.2) H D 07/12/17 05:35 AST 30 U/L (15-37) 07/14/17 20:30 ALT 21 U/L (12-78) 07/14/17 20:30 Alkaline Phosphatase 52 U/L (45-117) 07/14/17 20:30 Creatine Kinase 237 IU/L (39-308) 07/07/17 13:00 Creatine Kinase Index 0.5 % (0.0-5.0) 07/07/17 13:00 CK-MB (CK-2) 1.282 ng/mL (0.5-3.6) 07/07/17 13:00 Troponin I 1.09 ng/ml (0.00-0.05) H* 07/07/17 13:00 B-Natriuretic Peptide 04728.37 pg/ml (5-125) H 07/05/17 00:45 Total Protein 5.8 g/dl (6.4-8.2) L 07/14/17 20:30 Albumin 1.8 g/dl (3.4-5.0) L 07/14/17 20:30 Urine Color Ltyellow 07/14/17 19:00 Urine Appearance Clear 07/14/17 19:00 Urine pH 6.0 (5.0-8.0) 07/14/17 19:00 Ur Specific [place] 1.013 (1.001-1.035) 07/14/17 19:00 Urine Protein 2+ (NEGATIVE) H 07/14/17 19:00 Urine Glucose (UA) 3+ (NEGATIVE) H 07/14/17 19:00 Urine Ketones Negative (NEGATIVE) 07/14/17 19:00 Urine Blood 1+ (NEGATIVE) H 07/14/17 19:00 Urine Nitrite Negative (NEGATIVE) 07/14/17 19:00 Urine Bilirubin Negative (NEGATIVE) 07/14/17 19:00 Urine Urobilinogen Negative mg/dL (0.2-1.0) 07/14/17 19:00 Ur Leukocyte Esterase Negative (NEGATIVE) 07/14/17 19:00 Urine WBC (Auto) 3 /hpf (3-5) 07/14/17 19:00 Urine RBC (Auto) 2 /hpf (0-3) 07/14/17 19:00 Ur Epithelial Cells Rare /HPF (FEW) 07/12/17 12:04 Hyaline Casts 1 /lpf 07/05/17 02:10 Urine Mucus Rare 07/14/17 19:00 Ur Random Sodium 57 MMOL/L 07/06/17 14:50 Ur Random Potassium 32.6 MMOL/L 07/06/17 14:50 Ur Random Chloride 43 MMOL/L 07/06/17 14:50 Ur Random Urea Nitrogn 380 mg/dL 07/06/17 14:50 Gastric Occult Blood Positive 07/10/17 16:45 Tobramycin Trough 3.1 ug/ml (0.0-2.0) H* 07/06/17 05:00 Random Vancomycin < 0.800 ug/ml 07/05/17 05:00 Beta-(1,3)-D-Glucan 41 pg/mL (<80) 07/05/17 08:05 Blood Type B POSITIVE 07/10/17 19:40 Antibody Screen Negative 07/10/17 19:20 Crossmatch See Detail 07/10/17 19:20 tele: sr, 8 beat nsvt EKG 07/07: sinus tach with pvc's. new difufes TWI. worse in precordial leads. prolonged qtc. cxr 07/15: no chf ECG #1: sinus tach, normal axis, +/- long QT (mild); no pathol q waves; borderline ischemic appearing ST depressions inferior leads and V6 (no old but this was not reported on 12/24 office ecg) #2: NSR, STs resolving ECG 07/07: MPI 05/26: no ischemia, EF 33% (global echo 06/2017: nl lv size. LV fn mod-sev reduced (global). nl rv size/fn. 1+ mac/mr/tr. rvsp 30-40. + pleural effusion. Echo 05/26 (): mod LVE, mild global LV hypo; nl RV; mild LAE; mild MR Echo 12/24: nl LV and RV, nl valves est cct 35 mins a/p: 56 yo smoker with h/o mild lv dysfunction, htn, hl, ckd, hiv, dm p/w progressive sob and subsequent PEA arrest with EMS (s/p resuscitation). acute hypoxic resp failure, acute on chronic syst CHF, NSTEMI, cardiac arrest ( PEA): -initially with marked chf on cxr in setting of several days of worsening sob -suspect PEA due to severe chf decompensation with acute hypoxia -suspected anoxic brain injury now, neuro following -cxr w/o chf, no clinical chf, did not respond to brief trial of lasix gtt -resting echo 05/26 with mild LV dysfunction, ? echo overestimaged EF (nuclear estimated EF 33%) -NSTEMI trop trend here with peak 1.3 (coap-[id number]-ezht pattern) -ECG initially here with borderline ST changes for ischemia (likely secondary) -? underlying CAD with balanced ischemia on nuclear. -repeat echo here with worsened systolic function. (consider invasive ischemia eval (cath) if he were to make meaningful recovery.) -cont beta blockade -no NORRIS/ARB given profound FLORECITA -remains without suspected volume/chf--no diuresis for now -per critical care, may need trach vs compassionate wean from vent FLORECITA on CKD: -baseline creat here 2.8 in 05/26. initially 2.4 on presentation to ER, up to 6s here, now trending down, 3s today -suspect hypoperfusion/atn as cause -holding lasix -renal following HTN: -cont bb, adequate control of bp HIV/Hep C: -per ID team anemia, gib: -likely ugib, now on ppi gtt -hgb improved s/p prbcs, remains stable
--- NOTE | 2017-07-15 12:10 | PN ---
Teaching Attending Note Name of Resident: Dione Hidalgo ATTENDING PHYSICIAN STATEMENT I saw and evaluated the patient. I reviewed the resident's note and discussed the case with the resident. I agree with the resident's findings and plan as documented. SUBJECTIVE: Pt seen and examined in the ICU. Clinically unchanged. Remains intubated, sedated. No improvement in mental status off sedation. Intermittent fevers. OBJECTIVE: Last Vital Signs Temp Pulse Resp BP Pulse Ox 100.3 F H 87 18 146/65 100 07/15/17 10:00 07/15/17 11:26 07/15/17 10:00 07/15/17 10:00 07/15/17 11:26 Intake & Output 07/12/17 07/13/17 07/14/17 07/15/17 23:59 23:59 23:59 23:59 Intake Total 3282 1516 2886 1322 Output Total 2150 3200 2900 300 Balance 1132 -1684 -14 1022 Weight 202 lb 9 oz 209 lb 6 oz 209 lb 8 oz 208 lb 9.6 oz Gen: intubated, sedated Heart: RRR Lung: decreased breath sounds at the bases Abd: soft, nontender Ext: + edema CBC, BMP 07/15/17 05:30 07/15/17 05:30 Active Medications Acetaminophen (Tylenol Oral Solution -) 650 mg PO Q6H PRN PRN Reason: FEVER OR PAIN Artificial Tears (Artificial Tears) 1 drop OU BID PRN PRN Reason: DRY EYES Carvedilol (Coreg -) 6.25 mg PO BID PAULINE Last Admin: 07/15/17 09:55 Dose: 6.25 mg Dexamethasone Sodium Phosphate (Decadron Injection -) 10 mg IVPUSH Q6H-IV PAULINE Last Admin: 07/15/17 09:55 Dose: 10 mg Heparin Sodium (Porcine) (Heparin -) 5,000 unit SQ TID PAULINE Last Admin: 07/15/17 06:39 Dose: 5,000 unit Propofol (Diprivan -) 1,000,000 mcg in 100 mls @ 2.807 mls/hr IVPB TITR PAULINE; 5 MCG/KG/MIN PRN Reason: Protocol Last Admin: 07/15/17 06:40 Dose: 45.96 mcg/kg/min, 25.798 mls/hr Pantoprazole Sodium 80 mg/ (Sodium Chloride) 100 mls @ 10 mls/hr IVPB Q10H PAULINE PRN Reason: 8 MG/HR Last Admin: 07/15/17 06:41 Dose: 10 mls/hr Insulin Human Regular 100 (units/ Sodium Chloride) 100 mls @ 9.5 mls/hr IVPB TITR PAULINE; 0.1 UNITS/KG/HR PRN Reason: Protocol Last Titration: 07/15/17 01:00 Dose: 0.04 units/kg/hr, 4 mls/hr Sodium Chloride (Normal Saline -) 1,000 mls @ 150 mls/hr IV ASDIR PAULINE Last Admin: 07/15/17 05:00 Dose: 150 mls/hr Labetalol HCl (Normodyne Injection -) 10 mg IVPUSH Q4H PRN PRN Reason: HYPERTENSION Last Admin: 07/12/17 14:59 Dose: 10 mg Metoprolol Tartrate (Lopressor Injection -) 5 mg IVPUSH Q4H PRN PRN Reason: HYPERTENSION Last Admin: 07/14/17 13:26 Dose: 5 mg ASSESSMENT AND PLAN: s/p Cardiopulmonary Arrest Likely Anoxic Brain Injury Acute on Chronic Systolic Heart Failure +Troponins Acute on Chronic Renal Failure Lactic Acidosis resolved HTN HIV Hep C Smoker - completed empiric antibiotics - monitor urine output, creatinine - daily sedation vacations to assess mental status - taper FiO2 to keep SpO2 >90% - not a candidate for weaning due to poor mental status - enteral feeds - DVT/GI prophylaxis - poor overall prognosis for meaningful recovery, had discussed with daughter at bedside, she had stated that pt would not want to be kept alive without quality of life critical care time spent in reviewing chart, evaluating patient and formulating plan 35 min
--- NOTE | 2017-07-15 13:27 | PN ---
Progress Note, Physician History of Present Illness: Pt seen and examined at bedside. He remains in the ICU. He remain intubated. - Current Medication List Current Medications: Active Medications Acetaminophen (Tylenol Oral Solution -) 650 mg PO Q6H PRN PRN Reason: FEVER OR PAIN Artificial Tears (Artificial Tears) 1 drop OU BID PRN PRN Reason: DRY EYES Carvedilol (Coreg -) 6.25 mg PO BID PAULINE Last Admin: 07/15/17 09:55 Dose: 6.25 mg Dexamethasone Sodium Phosphate (Decadron Injection -) 10 mg IVPUSH Q6H-IV PAULINE Last Admin: 07/15/17 09:55 Dose: 10 mg Heparin Sodium (Porcine) (Heparin -) 5,000 unit SQ TID PAULINE Last Admin: 07/15/17 06:39 Dose: 5,000 unit Propofol (Diprivan -) 1,000,000 mcg in 100 mls @ 2.807 mls/hr IVPB TITR PAULINE; 5 MCG/KG/MIN PRN Reason: Protocol Last Admin: 07/15/17 06:40 Dose: 45.96 mcg/kg/min, 25.798 mls/hr Pantoprazole Sodium 80 mg/ (Sodium Chloride) 100 mls @ 10 mls/hr IVPB Q10H PAULINE PRN Reason: 8 MG/HR Last Admin: 07/15/17 06:41 Dose: 10 mls/hr Sodium Chloride (Normal Saline -) 1,000 mls @ 150 mls/hr IV ASDIR PAULINE Last Admin: 07/15/17 05:00 Dose: 150 mls/hr Labetalol HCl (Normodyne Injection -) 10 mg IVPUSH Q4H PRN PRN Reason: HYPERTENSION Last Admin: 07/12/17 14:59 Dose: 10 mg Metoprolol Tartrate (Lopressor Injection -) 5 mg IVPUSH Q4H PRN PRN Reason: HYPERTENSION Last Admin: 07/14/17 13:26 Dose: 5 mg - Objective Vital Signs: Vital Signs Temperature 100.3 F H 07/15/17 10:00 Pulse Rate 84 07/15/17 12:00 Respiratory Rate 28 H 07/15/17 12:10 Blood Pressure 161/80 07/15/17 12:00 O2 Sat by Pulse Oximetry (%) 100 07/15/17 11:26 Constitutional: Yes: Calm Eyes: Yes: Conjunctiva Clear HENT: Yes: Atraumatic Neck: Yes: Supple Cardiovascular: Yes: S1, S2 Respiratory: Yes: Mechanically Ventilated Gastrointestinal: Yes: Soft Genitourinary: Yes: Rocha Present Musculoskeletal: Yes: Muscle Weakness Edema: Yes Edema: LUE: Trace, RUE: Trace, LLE: Trace, RLE: Trace Neurological: Yes: Lethargy Labs: CBC, BMP 07/15/17 05:30 07/15/17 05:30 INR, PTT INR 1.18 (0.82-1.09) H 07/06/17 05:00 - ....Imaging Chest X-ray: Report Reviewed Problem List - Problems (1) FLORECITA (acute kidney injury) Code(s): N17.9 - ACUTE KIDNEY FAILURE, UNSPECIFIED (2) CHF (congestive heart failure) Code(s): I50.9 - HEART FAILURE, UNSPECIFIED Qualifiers: Congestive heart failure type: unspecified congestive heart failure type Congestive heart failure chronicity: unspecified congestive heart failure chronicity Qualified Code(s): I50.9 - Heart failure, unspecified (3) Cardiopulmonary arrest with successful resuscitation Code(s): I46.9 - CARDIAC ARREST, CAUSE UNSPECIFIED (4) Chronic kidney disease Code(s): N18.9 - CHRONIC KIDNEY DISEASE, UNSPECIFIED (5) Hypertension Code(s): I10 - ESSENTIAL (PRIMARY) HYPERTENSION (6) Chronic kidney disease Code(s): N18.9 - CHRONIC KIDNEY DISEASE, UNSPECIFIED Assessment/Plan Current Medications Generic Name Dose Route Start Last Admin Trade Name Freq PRN Reason Stop Dose Admin Acetaminophen 650 mg 07/14/17 16:02 Tylenol Oral Solution - PO Q6H PRN FEVER OR PAIN Artificial Tears 1 drop 07/12/17 15:20 Artificial Tears OU BID PRN DRY EYES Carvedilol 6.25 mg 07/14/17 22:00 07/15/17 09:55 Coreg - PO 6.25 mg BID PAULINE Administration Dexamethasone Sodium Phosphate 10 mg 07/09/17 11:45 07/15/17 09:55 Decadron Injection - IVPUSH 10 mg Q6H-IV PAULINE Administration Heparin Sodium (Porcine) 5,000 unit 07/08/17 15:30 07/15/17 06:39 Heparin - SQ 5,000 unit TID PAULINE Administration Propofol 1,000,000 mcg in 100 mls @ 2.807 mls/hr 07/10/17 14:00 07/15/17 06: 40 Diprivan - IVPB 45.96 mcg/kg/min TITR PAULINE 25.798 mls/hr Protocol Administration 5 MCG/KG/MIN Pantoprazole Sodium 80 mg/ 100 mls @ 10 mls/hr 07/10/17 19:15 07/15/17 06:41 Sodium Chloride IVPB 10 mls/hr Q10H PAULINE Administration 8 MG/HR Sodium Chloride 1,000 mls @ 150 mls/hr 07/14/17 18:45 07/15/17 05:00 Normal Saline - IV 150 mls/hr ASDIR PAULINE Administration Labetalol HCl 10 mg 07/09/17 11:12 07/12/17 14:59 Normodyne Injection - IVPUSH 10 mg Q4H PRN Administration HYPERTENSION Metoprolol Tartrate 5 mg 07/10/17 21:59 07/14/17 13:26 Lopressor Injection - IVPUSH 5 mg Q4H PRN Administration HYPERTENSION Impression 1. FLORECITA 2. CKD 3. cardiac arrest 4. CHF 5. HIV 6. hypomagnesemia 7. anoxic brain injury 8. anemia 9. hyperglycemia 10. HTN 11. acidosis Plan - cont with feeds - can stop fluids - bp is improving - discussed with ICU - start PO bicarb - cont to monitor renal function - woud not restart lisinopril at this point - vent support - likely ATN from hypotension during arrest, cont to monitor for recovery - cont to monitor urine output
[2017-07-15] MEDS ORDERED: SODIUM CHLORIDE 0.45% 1,000 ML IV SCH ×3 (13:45→15:59)
--- NOTE | 2017-07-15 14:29 | PN ---
Physical Exam: SUBJECTIVE: Patient seen and examined at bedside. 24 hr events -Tmax 101.7F most likely 2/2 central fever -has not improved when off sedation -was tx for DKA, on insulin gtt Today -no changes in mental status -BGM trending down into 200-250s OBJECTIVE: Vital Signs Period Temp Pulse Resp BP Sys/[place]illo Pulse Ox Last 24 Hr 98.9 F-100.3 F 84-102 18-35 128-183/59-95 100-100 GENERAL: The patient is sedated, vented HEAD: Normal with no signs of trauma. EYES: PERRL, extraocular movements intact, sclera anicteric, conjunctiva clear. NECK: Trachea midline, supple. LUNGS: coarse breath sounds appreciated b/l, abdominal breathing when sedation was d/c HEART: Regular rate and rhythm, S1, S2 without murmur, rub or gallop. ABDOMEN: Soft, nontender, nondistended, normoactive bowel sounds EXTREMITIES: 2+ dorsalis pedis pulses, 1+ pitting edema b/l NEUROLOGICAL: unable to assess as pt sedated Laboratory Results - last 24 hr 07/12/17 07/12/17 07/12/17 02:24 05:24 10:23 WBC RBC Hgb Hct MCV MCH MCHC RDW Plt Count MPV Neutrophils % Lymphocytes % Monocytes % Eosinophils % Basophils % Anticoagulation Therapy Puncture Site ABG pH ABG pCO2 at Pt Temp ABG pO2 at Pt Temp ABG HCO3 ABG O2 Sat (Measured) ABG O2 Content ABG Base Excess Sorin Test O2 Delivery Device Oxygen Flow Rate Vent Mode Vent Rate Mechanical Rate PEEP Pressure Support Vent Sodium Potassium Chloride Carbon Dioxide Anion Gap BUN Creatinine Creat Clearance w eGFR POC Glucometer [phone] [phone] Random Glucose Fasting Glucose Calcium Phosphorus Magnesium Total Bilirubin AST ALT Alkaline Phosphatase Total Protein Albumin Urine Color Urine Appearance Urine pH Ur Specific Troy Urine Protein Urine Glucose (UA) Urine Ketones Urine Blood Urine Nitrite Urine Bilirubin Urine Urobilinogen Ur Leukocyte Esterase Urine WBC (Auto) Urine RBC (Auto) Urine Mucus 07/12/17 07/12/17 07/12/17 15:11 17:31 21:56 WBC RBC Hgb Hct MCV MCH MCHC RDW Plt Count MPV Neutrophils % Lymphocytes % Monocytes % Eosinophils % Basophils % Anticoagulation Therapy Puncture Site ABG pH ABG pCO2 at Pt Temp ABG pO2 at Pt Temp ABG HCO3 ABG O2 Sat (Measured) ABG O2 Content ABG Base Excess Sorin Test O2 Delivery Device Oxygen Flow Rate Vent Mode Vent Rate Mechanical Rate PEEP Pressure Support Vent Sodium Potassium Chloride Carbon Dioxide Anion Gap BUN Creatinine Creat Clearance w eGFR POC Glucometer > [phone] Random Glucose Fasting Glucose Calcium Phosphorus Magnesium Total Bilirubin AST ALT Alkaline Phosphatase Total Protein Albumin Urine Color Urine Appearance Urine pH Ur Specific [place] Urine Protein Urine Glucose (UA) Urine Ketones Urine Blood Urine Nitrite Urine Bilirubin Urine Urobilinogen Ur Leukocyte Esterase Urine WBC (Auto) Urine RBC (Auto) Urine Mucus 07/13/17 07/13/17 07/13/17 02:59 06:00 13:06 WBC RBC Hgb Hct MCV MCH MCHC RDW Plt Count MPV Neutrophils % Lymphocytes % Monocytes % Eosinophils % Basophils % Anticoagulation Therapy Puncture Site ABG pH ABG pCO2 at Pt Temp ABG pO2 at Pt Temp ABG HCO3 ABG O2 Sat (Measured) ABG O2 Content ABG Base Excess Sorin Test O2 Delivery Device Oxygen Flow Rate Vent Mode Vent Rate Mechanical Rate PEEP Pressure Support Vent Sodium Potassium Chloride Carbon Dioxide Anion Gap BUN Creatinine Creat Clearance w eGFR POC Glucometer > 400 > [phone] Random Glucose Fasting Glucose Calcium Phosphorus Magnesium Total Bilirubin AST ALT Alkaline Phosphatase Total Protein Albumin Urine Color Urine Appearance Urine pH Ur Specific [place] Urine Protein Urine Glucose (UA) Urine Ketones Urine Blood Urine Nitrite Urine Bilirubin Urine Urobilinogen Ur Leukocyte Esterase Urine WBC (Auto) Urine RBC (Auto) Urine Mucus 07/13/17 07/13/17 07/13/17 16:17 19:04 21:43 WBC RBC Hgb Hct MCV MCH MCHC RDW Plt Count MPV Neutrophils % Lymphocytes % Monocytes % Eosinophils % Basophils % Anticoagulation Therapy Puncture Site ABG pH ABG pCO2 at Pt Temp ABG pO2 at Pt Temp ABG HCO3 ABG O2 Sat (Measured) ABG O2 Content ABG Base Excess Sorin Test O2 Delivery Device Oxygen Flow Rate Vent Mode Vent Rate Mechanical Rate PEEP Pressure Support Vent Sodium Potassium Chloride Carbon Dioxide Anion Gap BUN Creatinine Creat Clearance w eGFR POC Glucometer [phone] [phone] Random Glucose Fasting Glucose Calcium Phosphorus Magnesium Total Bilirubin AST ALT Alkaline Phosphatase Total Protein Albumin Urine Color Urine Appearance Urine pH Ur Specific [place] Urine Protein Urine Glucose (UA) Urine Ketones Urine Blood Urine Nitrite Urine Bilirubin Urine Urobilinogen Ur Leukocyte Esterase Urine WBC (Auto) Urine RBC (Auto) Urine Mucus 07/14/17 07/14/17 07/14/17 03:01 05:39 11:10 WBC RBC Hgb Hct MCV MCH MCHC RDW Plt Count MPV Neutrophils % Lymphocytes % Monocytes % Eosinophils % Basophils % Anticoagulation Therapy Puncture Site ABG pH ABG pCO2 at Pt Temp ABG pO2 at Pt Temp ABG HCO3 ABG O2 Sat (Measured) ABG O2 Content ABG Base Excess Sorin Test O2 Delivery Device Oxygen Flow Rate Vent Mode Vent Rate Mechanical Rate PEEP Pressure Support Vent Sodium Potassium Chloride Carbon Dioxide Anion Gap BUN Creatinine Creat Clearance w eGFR POC Glucometer 310.94185 366.21217 > 400 Random Glucose Fasting Glucose Calcium Phosphorus Magnesium Total Bilirubin AST ALT Alkaline Phosphatase Total Protein Albumin Urine Color Urine Appearance Urine pH Ur Specific [place] Urine Protein Urine Glucose (UA) Urine Ketones Urine Blood Urine Nitrite Urine Bilirubin Urine Urobilinogen Ur Leukocyte Esterase Urine WBC (Auto) Urine RBC (Auto) Urine Mucus 07/14/17 07/14/17 07/14/17 13:51 14:45 15:31 WBC RBC Hgb Hct MCV MCH MCHC RDW Plt Count MPV Neutrophils % Lymphocytes % Monocytes % Eosinophils % Basophils % Anticoagulation Therapy Puncture Site ABG pH ABG pCO2 at Pt Temp ABG pO2 at Pt Temp ABG HCO3 ABG O2 Sat (Measured) ABG O2 Content ABG Base Excess Sorin Test O2 Delivery Device Oxygen Flow Rate Vent Mode Vent Rate Mechanical Rate PEEP Pressure Support Vent Sodium Potassium Chloride Carbon Dioxide Anion Gap BUN Creatinine Creat Clearance w eGFR POC Glucometer > 400 > 400 Random Glucose Fasting Glucose 535 H* Calcium Phosphorus Magnesium Total Bilirubin AST ALT Alkaline Phosphatase Total Protein Albumin Urine Color Urine Appearance Urine pH Ur Specific [place] Urine Protein Urine Glucose (UA) Urine Ketones Urine Blood Urine Nitrite Urine Bilirubin Urine Urobilinogen Ur Leukocyte Esterase Urine WBC (Auto) Urine RBC (Auto) Urine Mucus 07/14/17 07/14/17 07/14/17 18:13 19:00 20:12 WBC RBC Hgb Hct MCV MCH MCHC RDW Plt Count MPV Neutrophils % Lymphocytes % Monocytes % Eosinophils % Basophils % Anticoagulation Therapy Puncture Site ABG pH ABG pCO2 at Pt Temp ABG pO2 at Pt Temp ABG HCO3 ABG O2 Sat (Measured) ABG O2 Content ABG Base Excess Sorin Test O2 Delivery Device Oxygen Flow Rate Vent Mode Vent Rate Mechanical Rate PEEP Pressure Support Vent Sodium Potassium Chloride Carbon Dioxide Anion Gap BUN Creatinine Creat Clearance w eGFR POC Glucometer > [phone] Random Glucose Fasting Glucose Calcium Phosphorus Magnesium Total Bilirubin AST ALT Alkaline Phosphatase Total Protein Albumin Urine Color Ltyellow Urine Appearance Clear Urine pH 6.0 Ur Specific Troy 1.013 Urine Protein 2+ H Urine Glucose (UA) 3+ H Urine Ketones Negative Urine Blood 1+ H Urine Nitrite Negative Urine Bilirubin Negative Urine Urobilinogen Negative Ur Leukocyte Esterase Negative Urine WBC (Auto) 3 Urine RBC (Auto) 2 Urine Mucus Rare 07/14/17 07/14/17 07/14/17 20:15 20:30 21:12 WBC RBC Hgb Hct MCV MCH MCHC RDW Plt Count MPV Neutrophils % Lymphocytes % Monocytes % Eosinophils % Basophils % Anticoagulation Therapy Y Puncture Site Right radial ABG pH 7.35 ABG pCO2 at Pt Temp 20.9 L ABG pO2 at Pt Temp 207.0 H* ABG HCO3 11.2 L* ABG O2 Sat (Measured) 97.5 ABG O2 Content 16.7 ABG Base Excess -12.7 L* Sorin Test Positive O2 Delivery Device Fio2 40% Oxygen Flow Rate Yes Vent Mode Y Vent Rate Y Mechanical Rate Ventilator PEEP 5.0 Pressure Support Vent Y Sodium 140 Potassium 2.9 L* Chloride 112 H Carbon Dioxide 12 L Anion Gap 16 BUN 93 H Creatinine 3.3 H Creat Clearance w eGFR 19.42 POC Glucometer [phone] Random Glucose 423 H* Fasting Glucose Calcium 6.5 L* Phosphorus Magnesium Total Bilirubin 0.9 AST 30 ALT 21 Alkaline Phosphatase 52 Total Protein 5.8 L Albumin 1.8 L Urine Color Urine Appearance Urine pH Ur Specific [place] Urine Protein Urine Glucose (UA) Urine Ketones Urine Blood Urine Nitrite Urine Bilirubin Urine Urobilinogen Ur Leukocyte Esterase Urine WBC (Auto) Urine RBC (Auto) Urine Mucus 07/14/17 07/14/17 07/15/17 22:17 23:48 00:15 WBC RBC Hgb Hct MCV MCH MCHC RDW Plt Count MPV Neutrophils % Lymphocytes % Monocytes % Eosinophils % Basophils % Anticoagulation Therapy Y Puncture Site Right radial ABG pH 7.29 L ABG pCO2 at Pt Temp 22.5 L ABG pO2 at Pt Temp 119.0 H D ABG HCO3 10.6 L* ABG O2 Sat (Measured) 97.8 ABG O2 Content 16.6 ABG Base Excess -14.2 L* Sorin Test Y O2 Delivery Device Y Oxygen Flow Rate 30% Vent Mode Y Vent Rate 16 Mechanical Rate Y PEEP 5.0 Pressure Support Vent 500 Sodium Potassium Chloride Carbon Dioxide Anion Gap BUN Creatinine Creat Clearance w eGFR POC Glucometer 310.05021 264.27479 Random Glucose Fasting Glucose Calcium Phosphorus Magnesium Total Bilirubin AST ALT Alkaline Phosphatase Total Protein Albumin Urine Color Urine Appearance Urine pH Ur Specific [place] Urine Protein Urine Glucose (UA) Urine Ketones Urine Blood Urine Nitrite Urine Bilirubin Urine Urobilinogen Ur Leukocyte Esterase Urine WBC (Auto) Urine RBC (Auto) Urine Mucus 07/15/17 07/15/17 07/15/17 01:00 01:00 05:30 WBC 18.5 H RBC 4.14 Hgb 11.5 L Hct 34.5 L MCV 83.3 MCH 27.9 MCHC 33.4 RDW 17.2 H Plt Count 262 MPV 9.7 Neutrophils % 86.3 H Lymphocytes % 9.1 D Monocytes % 4.3 Eosinophils % 0.2 D Basophils % 0.1 Anticoagulation Therapy Puncture Site ABG pH ABG pCO2 at Pt Temp ABG pO2 at Pt Temp ABG HCO3 ABG O2 Sat (Measured) ABG O2 Content ABG Base Excess Sorin Test O2 Delivery Device Oxygen Flow Rate Vent Mode Vent Rate Mechanical Rate PEEP Pressure Support Vent Sodium 145 Potassium 3.9 D Chloride 116 H Carbon Dioxide 12 L Anion Gap 17 H BUN 89 H Creatinine 3.3 H Creat Clearance w eGFR POC Glucometer 224.04451 Random Glucose 268 H D Fasting Glucose Calcium 7.3 L Phosphorus Magnesium Total Bilirubin AST ALT Alkaline Phosphatase Total Protein Albumin Urine Color Urine Appearance Urine pH Ur Specific [place] Urine Protein Urine Glucose (UA) Urine Ketones Urine Blood Urine Nitrite Urine Bilirubin Urine Urobilinogen Ur Leukocyte Esterase Urine WBC (Auto) Urine RBC (Auto) Urine Mucus 07/15/17 07/15/17 07/15/17 05:30 07:36 10:39 WBC RBC Hgb Hct MCV MCH MCHC RDW Plt Count MPV Neutrophils % Lymphocytes % Monocytes % Eosinophils % Basophils % Anticoagulation Therapy Puncture Site ABG pH ABG pCO2 at Pt Temp ABG pO2 at Pt Temp ABG HCO3 ABG O2 Sat (Measured) ABG O2 Content ABG Base Excess Sorin Test O2 Delivery Device Oxygen Flow Rate Vent Mode Vent Rate Mechanical Rate PEEP Pressure Support Vent Sodium 145 Potassium 4.0 Chloride 118 H Carbon Dioxide 12 L Anion Gap 15 BUN 90 H Creatinine 3.3 H Creat Clearance w eGFR POC Glucometer 253.54869 230.54889 Random Glucose 241 H Fasting Glucose Calcium 7.4 L Phosphorus 4.5 D Magnesium 2.0 Total Bilirubin AST ALT Alkaline Phosphatase Total Protein Albumin Urine Color Urine Appearance Urine pH Ur Specific [place] Urine Protein Urine Glucose (UA) Urine Ketones Urine Blood Urine Nitrite Urine Bilirubin Urine Urobilinogen Ur Leukocyte Esterase Urine WBC (Auto) Urine RBC (Auto) Urine Mucus 07/15/17 11:58 WBC RBC Hgb Hct MCV MCH MCHC RDW Plt Count MPV Neutrophils % Lymphocytes % Monocytes % Eosinophils % Basophils % Anticoagulation Therapy Puncture Site ABG pH ABG pCO2 at Pt Temp ABG pO2 at Pt Temp ABG HCO3 ABG O2 Sat (Measured) ABG O2 Content ABG Base Excess Sorin Test O2 Delivery Device Oxygen Flow Rate Vent Mode Vent Rate Mechanical Rate PEEP Pressure Support Vent Sodium Potassium Chloride Carbon Dioxide Anion Gap BUN Creatinine Creat Clearance w eGFR POC Glucometer 224.99163 Random Glucose Fasting Glucose Calcium Phosphorus Magnesium Total Bilirubin AST ALT Alkaline Phosphatase Total Protein Albumin Urine Color Urine Appearance Urine pH Ur Specific [place] Urine Protein Urine Glucose (UA) Urine Ketones Urine Blood Urine Nitrite Urine Bilirubin Urine Urobilinogen Ur Leukocyte Esterase Urine WBC (Auto) Urine RBC (Auto) Urine Mucus Active Medications Generic Name Dose Route Start Last Admin Trade Name Brendonq PRN Reason Stop Dose Admin Acetaminophen 650 mg 07/14/17 16:02 Tylenol Oral Solution - PO Q6H PRN FEVER OR PAIN Artificial Tears 1 drop 07/12/17 15:20 Artificial Tears OU BID PRN DRY EYES Carvedilol 6.25 mg 07/14/17 22:00 07/15/17 09:55 Coreg - PO 6.25 mg BID PAULINE Administration Dexamethasone Sodium Phosphate 10 mg 07/09/17 11:45 07/15/17 09:55 Decadron Injection - IVPUSH 10 mg Q6H-IV PAULINE Administration Heparin Sodium (Porcine) 5,000 unit 07/08/17 15:30 07/15/17 06:39 Heparin - SQ 5,000 unit TID PAULINE Administration Propofol 1,000,000 mcg in 100 mls @ 2.807 mls/hr 07/10/17 14:00 07/15/17 06: 40 Diprivan - IVPB 45.96 mcg/kg/min TITR PAULINE 25.798 mls/hr Protocol Administration 5 MCG/KG/MIN Pantoprazole Sodium 80 mg/ 100 mls @ 10 mls/hr 07/10/17 19:15 07/15/17 06:41 Sodium Chloride IVPB 10 mls/hr Q10H PAULINE Administration 8 MG/HR Sodium Chloride 1,000 mls @ 75 mls/hr 07/15/17 13:45 1/2 Normal Saline IV ASDIR PAULINE Labetalol HCl 10 mg 07/09/17 11:12 07/12/17 14:59 Normodyne Injection - IVPUSH 10 mg Q4H PRN Administration HYPERTENSION Metoprolol Tartrate 5 mg 07/10/17 21:59 07/14/17 13:26 Lopressor Injection - IVPUSH 5 mg Q4H PRN Administration HYPERTENSION Sodium Bicarbonate 650 mg 07/15/17 14:00 Sodium Bicarbonate - PO TID PAULINE ASSESSMENT/PLAN: Pt is a 56 M w/ PMH HTN, HL, DM, CKD, and HIV on HAART who presented to ED with cardiopulmonary arrest. Pt is now intubated and sedated. Prior to arriving at the ED, pt had been complaining of wheezing and SOB. On arrival to ED, pt was in arrest and coded for five minutes.Pt currently being managed in ICU. CARDIO #s/p Cardiopulmonary arrest -pt coded in ED for >5 min -intubated, on vent -Echo: moderate-severe LV dysfunction #HTN-better controlled Currently on: - Coreg 6.25 mg PO BID - Labetalol 10mg IVP q4h PRN - Lopressor 5mg IVP q4h PRN - regimen has been changed- better control now NEURO -Anoxic brain injury most likely 2/2 arrest -Head CT: loss of balderas/white junction, sulcal effacement, w/o signs of herniation -Continue Decadron taper for decompression -Abnormal EEG -sedation vacations to assess mental status- however has not been tolerating #ID -HIV positive -pt sees Dr. Vital as outpatient -HIV meds on hold for now -abx have been stopped as fever most likely central NEPHRO -has been started on PO bicarb 650 mg PO TID -elevated BUN may be 2/2 to steroids -possible ATN 2/2 arrest -hx CKD -Continue to monitor BMP, UO #DKA -has been treated with insulin gtt -sugars down to 200-250's -continue to monitor BMP, BGM #metabolic acidosis -Continue PO sodium bicarb 650 mg PO TID ENDOCRINE #DM -ISS -BGM #F/E/N Will monitor electrolytes Continue tube feeds #PPx -Hep SubQ BID -Protonix gtt #Dispo Continued ICU management, unfortunately poor prognosis Visit type - Emergency Visit Emergency Visit: No - New Patient This patient is new to me today: No - Critical Care Critical Care patient: Yes Total Critical Care Time (in minutes): 31 Critical Care Statement: The care of this patient involved high complexity decision making to prevent further life threatening deterioration of the patient 's condition and/or to evaluate & treat vital organ system(s) failure or risk of failure.
[2017-07-15] MEDS: SODIUM BICARBONATE 650 MG TABLET PO SCH ×2 (14:55→22:11)
--- NOTE | 2017-07-15 16:51 | PN ---
Progress Note (short form) - Note Progress Note: Subjective: The patient was seen and examined in the ICU, remains intubated and sedated Off insulin gtt Current Medications Generic Name Dose Route Start Last Admin Trade Name Luis Fernando PRN Reason Stop Dose Admin Acetaminophen 650 mg 07/14/17 16:02 Tylenol Oral Solution - PO Q6H PRN FEVER OR PAIN Artificial Tears 1 drop 07/12/17 15:20 Artificial Tears OU BID PRN DRY EYES Carvedilol 6.25 mg 07/14/17 22:00 07/15/17 09:55 Coreg - PO 6.25 mg BID PAULINE Administration Dexamethasone Sodium Phosphate 10 mg 07/15/17 22:00 Decadron Injection - IVPUSH BID PAULINE Heparin Sodium (Porcine) 5,000 unit 07/08/17 15:30 07/15/17 06:39 Heparin - SQ 5,000 unit TID PAULINE Administration Propofol 1,000,000 mcg in 100 mls @ 2.807 mls/hr 07/10/17 14:00 07/15/17 14: 55 Diprivan - IVPB 45.96 mcg/kg/min TITR PAULINE 25.798 mls/hr Protocol Administration 5 MCG/KG/MIN Pantoprazole Sodium 80 mg/ 100 mls @ 10 mls/hr 07/10/17 19:15 07/15/17 06:41 Sodium Chloride IVPB 10 mls/hr Q10H PAULINE Administration 8 MG/HR Sodium Chloride 1,000 mls @ 75 mls/hr 07/15/17 15:59 1/2 Normal Saline IV ASDIR PAULINE Insulin Aspart 1 vial 07/15/17 16:30 Novolog Vial Sliding Scale - SQ ACHS [facility] Protocol Insulin Detemir 10 units 07/15/17 22:00 Levemir Vial SQ BID@0700,2200 PAULINE Labetalol HCl 10 mg 07/09/17 11:12 07/12/17 14:59 Normodyne Injection - IVPUSH 10 mg Q4H PRN Administration HYPERTENSION Metoprolol Tartrate 5 mg 07/10/17 21:59 07/14/17 13:26 Lopressor Injection - IVPUSH 5 mg Q4H PRN Administration HYPERTENSION Sodium Bicarbonate 650 mg 07/15/17 14:00 07/15/17 14:55 Sodium Bicarbonate - PO 650 mg TID PAULINE Administration Objective: Vital Signs Period Temp Pulse Resp BP Sys/[place]illo Pulse Ox Last 24 Hr 98.9 F-100.4 F 84-102 18-35 128-183/59-95 100-100 Physical Exam: General: Intubated, sedated Lungs: Decreased breath sounds at bases anteriorly Heart: RRR, S1S2 Abd: Soft, non-distended. Normoactive bowel sounds Ext: + edema CBCD WBC 18.5 K/mm3 (4.0-10.0) H 07/15/17 05:30 RBC 4.14 M/mm3 (4.00-5.60) 07/15/17 05:30 Hgb 11.5 GM/dL (11.7-16.9) L 07/15/17 05:30 Hct 34.5 % (35.4-49) L 07/15/17 05:30 MCV 83.3 fl (80-96) 07/15/17 05:30 MCHC 33.4 g/dl (32.0-35.9) 07/15/17 05:30 RDW 17.2 % (11.9-15.9) H 07/15/17 05:30 Plt Count 262 K/MM3 (134-434) 07/15/17 05:30 MPV 9.7 fl (7.5-11.1) 07/15/17 05:30 CMP Sodium 145 mmol/L (136-145) 07/15/17 05:30 Potassium 4.0 mmol/L (3.5-5.1) 07/15/17 05:30 Chloride 118 mmol/L (98-107) H 07/15/17 05:30 Carbon Dioxide 12 mmol/L (21-32) L 07/15/17 05:30 Anion Gap 15 (8-16) 07/15/17 05:30 BUN 90 mg/dL (7-18) H 07/15/17 05:30 Creatinine 3.3 mg/dL (0.7-1.3) H 07/15/17 05:30 Creat Clearance w eGFR 19.42 (>60) 07/14/17 20:30 Random Glucose 241 mg/dL (74-106) H 07/15/17 05:30 Calcium 7.4 mg/dL (8.5-10.1) L 07/15/17 05:30 Total Bilirubin 0.9 mg/dL (0.2-1.0) 07/14/17 20:30 AST 30 U/L (15-37) 07/14/17 20:30 ALT 21 U/L (12-78) 07/14/17 20:30 Alkaline Phosphatase 52 U/L (45-117) 07/14/17 20:30 Total Protein 5.8 g/dl (6.4-8.2) L 07/14/17 20:30 Albumin 1.8 g/dl (3.4-5.0) L 07/14/17 20:30 CARDIAC ENZYMES Creatine Kinase 237 IU/L (39-308) 07/07/17 13:00 Troponin I 1.09 ng/ml (0.00-0.05) H* 07/07/17 13:00 Microbiology 07/12/17 08:20 Blood - Peripheral Venous Blood Culture - Preliminary NO GROWTH OBTAINED AFTER 72 HOURS, INCUBATION TO CONTINUE FOR 2 DAYS. 07/12/17 08:30 Blood - Peripheral Venous Blood Culture - Preliminary NO GROWTH OBTAINED AFTER 72 HOURS, INCUBATION TO CONTINUE FOR 2 DAYS. 07/12/17 12:04 Sputum - Endotrachea Suction/Ventilator Gram Stain - Final 07/12/17 12:04 Sputum - Endotrachea Suction/Ventilator Sputum Culture - Final Yeast Like Organism 07/12/17 12:04 Urine - Urine Rocha Urine Culture - Final NO GROWTH OBTAINED 07/05/17 21:10 Sputum - Endotrachea Suction/Ventilator Gram Stain - Final 07/05/17 21:10 Sputum - Endotrachea Suction/Ventilator Sputum Culture - Final Staphylococcus Aureus Strep Agalactiae Group B 07/05/17 08:18 Blood - Peripheral Venous Blood Culture - Final NO GROWTH AFTER 5 DAYS INCUBATION 07/05/17 08:05 Blood - Peripheral Venous Blood Culture - Final NO GROWTH AFTER 5 DAYS INCUBATION 07/05/17 13:30 Stool Shiga Toxin Test - Final 07/05/17 13:30 Stool Clostridium difficile (PCR) - Final 07/05/17 08:35 Rectal Swab VRE Culture - Final NO VREF ISOLATED 07/05/17 13:30 Nares - Left Nares MRSA Screen - Final NO MRSA ISOLATED 07/05/17 13:30 Stool Cryptosporidium Antigen - Final 07/05/17 13:30 Stool Giardia Antigen (RACHEL) - Final 07/05/17 02:10 Urine - Urine - Catheterized Urine Culture - Final NO GROWTH OBTAINED 07/05/17 13:30 Urine - Urine Rocha Legionella Antigen - Final 07/05/17 13:30 Urine - Urine Rocha Streptococcus pneumoniae Antigen (M - Final Assessment: This is a 56 year old male with PMHx of HIV, CKD, DM, hyperlipidemia , HTN, who presented to the ED unresponsive in cardiac arrest Plan: 1) Cardiopulmonary arrest - Remains intubated - Daily sedation vacations - Remains on propofol - Appreciate pulmonary consult 2) HTN - Improving from yesterday - Continue Coreg - Continue Labetolol prn - Continue Lopressor prn - Appreciate cardiology consult 3) Brain edema - Head CT 07/08/2017: diffuse decreased attenuation of the brainwith effacementof the cortical sulci and loss of the garcia-white matter junction compatible with brain edema. - Head CT 07/12/2017: Interval significant decrease in the degree of previously described brain edema. No acute ICH. - Continue Decadron
[2017-07-15] MEDS: INSULIN SLIDING SCALE (NOVOLOG) 1 VIAL SQ SCH ×2 (17:33→22:21)
[2017-07-15] MEDS ORDERED: DEXAMETHASONE SOD PHOSPHATE 10 MG/1 ML VIAL IVPUSH SCH (22:00)
[2017-07-15] MEDS: INSULIN DETEMIR 100 UNITS/ML MDV SQ SCH (22:11)
[2017-07-15] MEDS: ACETAMINOPHEN 1000 MG/100 ML VIAL (NON FORMULARY) IVPB PRN (22:31)
[2017-07-16] MEDS: ACETAMINOPHEN 1000 MG/100 ML VIAL (NON FORMULARY) IVPB PRN ×2 (04:57→10:13)
[2017-07-16] MEDS: HEPARIN NA (PORCINE) 5,000 UNITS/ML 1ML VIAL SQ SCH ×3 (05:11→21:41)
[2017-07-16] MEDS: SODIUM BICARBONATE 650 MG TABLET PO SCH ×3 (05:11→21:41)
[2017-07-16] MEDS: PANTOPRAZOLE SODIUM 80 MG in SODIUM CHLORIDE 100 ML IVPB SCH ×2 (05:46→14:24)
[2017-07-16 06:12] LABS: MCH 28.1 pg (25.7-33.7); MCHC 33.2 g/dl (32.0-35.9); MEAN CELL VOLUME 84.7 fl (80-96); PLATELET COUNT 243 K/MM3 (134-434); RDW 17.3 % (11.9-15.9); WHITE BLOOD COUNT 19.9 K/mm3 (4.0-10.0)
[2017-07-16 06:39] LABS: ANION GAP 17 (8-16); CALCIUM 7.4 mg/dL (8.5-10.1); CO2 10 mmol/L (21-32); CREATININE 3.7 mg/dL (0.7-1.3)
[2017-07-16] MEDS: INSULIN SLIDING SCALE (NOVOLOG) 1 VIAL SQ SCH ×2 (06:45→12:04)
[2017-07-16] MEDS: INSULIN DETEMIR 100 UNITS/ML MDV SQ SCH (06:45)
[2017-07-16 06:51] LABS: GLUCOSE,RANDOM 405 mg/dL (74-106)
--- NOTE | 2017-07-16 08:03 | PN ---
Progress Note, Physician Chief Complaint: ID No change in mental status Remains febrile - Current Medication List Current Medications: Active Medications Acetaminophen (Tylenol Oral Solution -) 650 mg PO Q6H PRN PRN Reason: FEVER OR PAIN Acetaminophen (Ofirmev Injection -) 1,000 mg IVPB Q6H PRN PRN Reason: FEVER OR PAIN Last Admin: 07/16/17 04:57 Dose: 1,000 mg Artificial Tears (Artificial Tears) 1 drop OU BID PRN PRN Reason: DRY EYES Carvedilol (Coreg -) 6.25 mg PO BID [facility] [place] Last Admin: 07/15/17 22:11 Dose: 6.25 mg Dexamethasone Sodium Phosphate (Decadron Injection -) 10 mg IVPUSH BID [facility] [place] Last Admin: 07/15/17 22:10 Dose: 10 mg Heparin Sodium (Porcine) (Heparin -) 5,000 unit SQ TID [facility] Last Admin: 07/16/17 05:11 Dose: 5,000 unit Propofol (Diprivan -) 1,000,000 mcg in 100 mls @ 2.807 mls/hr IVPB TITR [facility]; 5 MCG/KG/MIN PRN Reason: Protocol Last Admin: 07/15/17 22:12 Dose: 45.96 mcg/kg/min, 25.798 mls/hr Pantoprazole Sodium 80 mg/ (Sodium Chloride) 100 mls @ 10 mls/hr IVPB Q10H [facility] PRN Reason: 8 MG/HR Last Admin: 07/16/17 05:46 Dose: 10 mls/hr Sodium Chloride (1/2 Normal Saline) 1,000 mls @ 75 mls/hr IV ASDIR [facility] [place] Last Admin: 07/15/17 17:29 Dose: 75 mls/hr Insulin Aspart (Novolog Vial Sliding Scale -) 1 vial SQ ACHS [facility] PRN Reason: Protocol Last Admin: 07/16/17 06:45 Dose: 10 units Insulin Detemir (Levemir Vial) 10 units SQ BID@0700,2200 [facility] [place] Last Admin: 07/16/17 06:45 Dose: 10 units Labetalol HCl (Normodyne Injection -) 10 mg IVPUSH Q4H PRN PRN Reason: HYPERTENSION Last Admin: 07/12/17 14:59 Dose: 10 mg Metoprolol Tartrate (Lopressor Injection -) 5 mg IVPUSH Q4H PRN PRN Reason: HYPERTENSION Last Admin: 07/14/17 13:26 Dose: 5 mg Sodium Bicarbonate (Sodium Bicarbonate -) 650 mg PO TID [facility] Last Admin: 07/16/17 05:11 Dose: 650 mg - Objective Vital Signs: Vital Signs Temperature 99.8 F H 07/16/17 02:00 Pulse Rate 104 H 07/16/17 06:00 Respiratory Rate 31 H 07/16/17 07:26 Blood Pressure 168/92 07/16/17 06:00 O2 Sat by Pulse Oximetry (%) 100 07/15/17 20:43 Constitutional: Yes: Well Nourished, Other (INtubated) Cardiovascular: Yes: S1, S2 Respiratory: Yes: WNL, Regular, CTA Bilaterally Gastrointestinal: Yes: WNL, Normal Bowel Sounds, Soft. No: Tenderness Edema: No Labs: CBC, BMP 07/16/17 05:00 07/16/17 05:00 INR, PTT INR 1.18 (0.82-1.09) H 07/06/17 05:00 Problem List - Problems (1) Cardiopulmonary arrest with successful resuscitation Code(s): I46.9 - CARDIAC ARREST, CAUSE UNSPECIFIED (2) Uncontrolled diabetes mellitus Code(s): E11.65 - TYPE 2 DIABETES MELLITUS WITH HYPERGLYCEMIA (3) Sepsis Code(s): A41.9 - SEPSIS, UNSPECIFIED ORGANISM (4) Chronic kidney disease Code(s): N18.9 - CHRONIC KIDNEY DISEASE, UNSPECIFIED (5) Hypertension Code(s): I10 - ESSENTIAL (PRIMARY) HYPERTENSION Assessment/Plan Microbiology 07/12/17 12:04 Urine - Urine Rocha Urine Culture - Final NO GROWTH OBTAINED 07/12/17 12:04 Sputum - Endotrachea Suction/Ventilator Gram Stain - Final 07/12/17 12:04 Sputum - Endotrachea Suction/Ventilator Sputum Culture - Final Yeast Like Organism Laboratory Tests 07/16/17 07/16/17 05:00 05:00 WBC 19.9 H Hgb 10.5 L Hct 31.6 L Plt Count 243 BUN 106 H* Creatinine 3.7 H Assessment Cardiopulmonary arrest with anoxic brain injury and fevers thought to be central Multoorgan failure and HIV Plan Observe off antibiotics and I would consider tapering steroids Amanuel ROJAS
[2017-07-16] MEDS ORDERED: PROPOFOL 60 ML ONE (09:27)
[2017-07-16] MEDS ORDERED: MIDAZOLAM 100 MG in SODIUM CHLORIDE 100 ML IVPB SCH (09:30)
--- NOTE | 2017-07-16 10:01 | PN ---
Progress Note (short form) - Note Progress Note: Neurology History of Present Illness: Mr. Welch is a 56 y/o man w/ HTN, HL, DM, CKD, HIV on HAART, EF 49.5%, BIBA for SOB. Reportedly had been experiencing worsening SOB & SAMUELS w/ assoc wheezing for several days prior to admission. While in route developed further respiratory distress and in ER had agonal breathing and unresponsive. No pulse noted on stretcher transferand chest compressions were initiated. The Pt was resuscitated per ACLS protocol for approximately 5 minutes according to note, receiving epi x 2, bicarb x 2. Pt was intubated and placed on ventilator and given nebulizers and steroids. Pt admitted to the ICU s/p Cardiac Arrest and respiratory failure. The patient has been on propofol but having myoclonic twitches especially in right foot. Given his history, this is likely myoclonic jerks 2/2 to anoxic brain injury. Klonipin was started, twitching improved and not visible at this time. There is minimal pupil contriction from 3mm to 2mm and therefore does not meet criteria for brain . However, only minimal brainstem activity and no significant improvement thus far. EEG completed, showed mix of theta and beta activity, consistent with encephalopathy. Again, not brain . CT head completed and showed cerebral edema, repeated and showed improved cerebral edema likely due to steroids given. Clinically without signficiant improvement. Spoke to resident about tapering Decadron yesterday and was to be cut in half each day. Attempts to wean propofol led to tachycardia and tachypnea. Spoke to nurse this AM and again propofol reduction led to tachypnea into the 40's though is overbreathing the vent. Gets tachycardic with propofol reduction as well. No significant neurologic improvement. Active Medications Acetaminophen (Tylenol Oral Solution -) 650 mg PO Q6H PRN PRN Reason: FEVER OR PAIN Acetaminophen (Ofirmev Injection -) 1,000 mg IVPB Q6H PRN PRN Reason: FEVER OR PAIN Last Admin: 07/16/17 04:57 Dose: 1,000 mg Artificial Tears (Artificial Tears) 1 drop OU BID PRN PRN Reason: DRY EYES Carvedilol (Coreg -) 6.25 mg PO BID [facility] Last Admin: 07/15/17 22:11 Dose: 6.25 mg Dexamethasone Sodium Phosphate (Decadron Injection -) 10 mg IVPUSH BID [facility] Last Admin: 07/15/17 22:10 Dose: 10 mg Heparin Sodium (Porcine) (Heparin -) 5,000 unit SQ TID [facility] Last Admin: 07/16/17 05:11 Dose: 5,000 unit Propofol (Diprivan -) 1,000,000 mcg in 100 mls @ 2.807 mls/hr IVPB TITR PA[facility]; 5 MCG/KG/MIN PRN Reason: Protocol Last Titration: 07/16/17 09:20 Dose: 0 mcg/kg/min, 0 mls/hr Pantoprazole Sodium 80 mg/ (Sodium Chloride) 100 mls @ 10 mls/hr IVPB Q10H [facility] PRN Reason: 8 MG/HR Last Admin: 07/16/17 05:46 Dose: 10 mls/hr Sodium Chloride (1/2 Normal Saline) 1,000 mls @ 75 mls/hr IV ASDIR [facility] Last Admin: 07/15/17 17:29 Dose: 75 mls/hr Midazolam HCl 100 mg/ Sodium (Chloride) 100 mls @ 1 mls/hr IVPB TITR PAULINE; 1 MG/ HR PRN Reason: Protocol Insulin Aspart (Novolog Vial Sliding Scale -) 1 vial SQ ACHS [facility] PRN Reason: Protocol Last Admin: 07/16/17 06:45 Dose: 10 units Insulin Detemir (Levemir Vial) 10 units SQ BID@0700,2200 [facility] Last Admin: 07/16/17 06:45 Dose: 10 units Labetalol HCl (Normodyne Injection -) 10 mg IVPUSH Q4H PRN PRN Reason: HYPERTENSION Last Admin: 07/12/17 14:59 Dose: 10 mg Metoprolol Tartrate (Lopressor Injection -) 5 mg IVPUSH Q4H PRN PRN Reason: HYPERTENSION Last Admin: 07/14/17 13:26 Dose: 5 mg Sodium Bicarbonate (Sodium Bicarbonate -) 650 mg PO TID [facility] Last Admin: 07/16/17 05:11 Dose: 650 mg Physical Exam Vital Signs Period Temp Pulse Resp BP Sys/[place] Pulse Ox Last 24 Hr 99.8 F-102 F 79-111 18-39 146-180/65-99 100-100 Constitutional: Yes: Well Nourished, No Distress, Calm Eyes: Yes: PERRL, Other (R Upward Lat Gaze.) HENT: Yes: WNL, Atraumatic, Normocephalic Neck: Yes: WNL, Supple, Trachea Midline Cardiovascular: Yes: WNL, Regular Rate and Rhythm Respiratory: Yes: Diminished, Mechanically Ventilated, Wheezes Gastrointestinal: Yes: Abdomen, Obese, Distention, Hyperactive Bowel Sounds ...Rectal Exam: Yes: Deferred Renal/: Yes: Rocha Present Breast(s): Yes: WNL Extremities: Yes: Other (Clubbed Fingers.) Edema: Yes Edema: LLE: 1+, RLE: 1+ Peripheral Pulses WNL: Yes Integumentary: Yes: WNL Neurological: No facial droop, not responding to pain, not gagging on suction, R pupil 2mm --> 1mm, no spontaneous movement, R foot myoclonic twitching noted CBCD WBC 19.9 K/mm3 (4.0-10.0) H 07/16/17 05:00 RBC 3.74 M/mm3 (4.00-5.60) L 07/16/17 05:00 Hgb 10.5 GM/dL (11.7-16.9) L 07/16/17 05:00 Hct 31.6 % (35.4-49) L 07/16/17 05:00 MCV 84.7 fl (80-96) 07/16/17 05:00 MCHC 33.2 g/dl (32.0-35.9) 07/16/17 05:00 RDW 17.3 % (11.9-15.9) H 07/16/17 05:00 Plt Count 243 K/MM3 (134-434) 07/16/17 05:00 MPV 10.0 fl (7.5-11.1) 07/16/17 05:00 CMP Sodium 144 mmol/L (136-145) 07/16/17 05:00 Potassium 4.3 mmol/L (3.5-5.1) 07/16/17 05:00 Chloride 117 mmol/L (98-107) H 07/16/17 05:00 Carbon Dioxide 10 mmol/L (21-32) L 07/16/17 05:00 Anion Gap 17 (8-16) H 07/16/17 05:00 BUN 106 mg/dL (7-18) H* 07/16/17 05:00 Creatinine 3.7 mg/dL (0.7-1.3) H 07/16/17 05:00 Creat Clearance w eGFR 19.42 (>60) 07/14/17 20:30 Calcium 7.4 mg/dL (8.5-10.1) L 07/16/17 05:00 Total Bilirubin 0.9 mg/dL (0.2-1.0) 07/14/17 20:30 AST 30 U/L (15-37) 07/14/17 20:30 ALT 21 U/L (12-78) 07/14/17 20:30 Alkaline Phosphatase 52 U/L (45-117) 07/14/17 20:30 Total Protein 5.8 g/dl (6.4-8.2) L 07/14/17 20:30 Albumin 1.8 g/dl (3.4-5.0) L 07/14/17 20:30 CT head X2 as above Plan: 56 y/o man w/ HTN, HL, DM, CKD, HIV on HAART, EF 49.5%, BIBA for SOB. Reportedly had been experiencing worsening SOB & SAMUELS w/ assoc wheezing for several days prior to admission. While in route developed further respiratory distress and in ER had agonal breathing and unresponsive. No pulse noted on stretcher transferand chest compressions were initiated. The Pt was resuscitated per ACLS protocol for approximately 5 minutes according to note, receiving epi x 2, bicarb x 2. Pt was intubated and placed on ventilator and given nebulizers and steroids. Pt admitted to the ICU s/p Cardiac Arrest and respiratory failure. The patient has been on propofol but having myoclonic twitches especially in right foot which have improved with Klonipin Given his history, this was likely myoclonic jerks 2/2 to anoxic brain injury and would not require AEDS Getting ICU care since admission klonipin 1mg twice daily added and subsided Continue Mechanical ventilation, wean as able Spiking fevers, possible central fevers, ID following Decadron to be tapered Initial CT head with cerebral edema noted and loss of balderas white differentiation Repeat CT with cortical sulci more visible and less edema, though evidence of anoxic brain injury in basal ganglia EEG confirmed patient with brain activity, mix of delta and theta, consistent with encephalopathy Monitor mental status for any improvement Monitor blood pressure, support as required No significant clinical improvement thus far Family to decide on goals of care, almost 2 weeks without improvement Possibly would require trach, vent, peg vs. compassionate extubation Critical Care Time 35 mins
[2017-07-16] MEDS: METOPROLOL TARTRATE 5 MG/5 ML VIAL IVPUSH PRN (10:13)
[2017-07-16] MEDS: CARVEDILOL 6.25 MG TABLET (FP) PO SCH (10:13)
[2017-07-16] MEDS: DEXAMETHASONE SOD PHOSPHATE 4 MG/1 ML VIAL IVPUSH SCH ×2 (10:14→21:41)
--- NOTE | 2017-07-16 11:13 | PN ---
Progress Note (short form) - Note Progress Note: CC: SOB/cardiac arrest. s: remains intubated/sedated, no overnight events Current Medications Generic Name Dose Route Start Last Admin Trade Name Luis Fernando PRN Reason Stop Dose Admin Acetaminophen 650 mg 07/14/17 16:02 Tylenol Oral Solution - PO Q6H PRN FEVER OR PAIN Acetaminophen 1,000 mg 07/15/17 22:23 07/16/17 10:13 Ofirmev Injection - IVPB 1,000 mg Q6H PRN Administration FEVER OR PAIN Artificial Tears 1 drop 07/12/17 15:20 Artificial Tears OU BID PRN DRY EYES Carvedilol 6.25 mg 07/14/17 22:00 07/16/17 10:13 Coreg - PO 6.25 mg BID PA[facility] Administration Dexamethasone Sodium Phosphate 5 mg 07/16/17 10:15 07/16/17 10:14 Decadron Injection - IVPUSH 5 mg BID [facility] Administration Heparin Sodium (Porcine) 5,000 unit 07/08/17 15:30 07/16/17 05:11 Heparin - SQ 5,000 unit TID PA[facility] Administration Propofol 1,000,000 mcg in 100 mls @ 2.807 mls/hr 07/10/17 14:00 07/16/17 09: 59 Diprivan - IVPB 45.96 mcg/kg/min TITR PAULINE 25.8 mls/hr Protocol Titration 5 MCG/KG/MIN Pantoprazole Sodium 80 mg/ 100 mls @ 10 mls/hr 07/10/17 19:15 07/16/17 05:46 Sodium Chloride IVPB 10 mls/hr Q10H PA[facility]INE Administration 8 MG/HR Sodium Chloride 1,000 mls @ 75 mls/hr 07/15/17 15:59 07/15/17 17:29 1/2 Normal Saline IV 75 mls/hr ASDIR PA[facility]INE Administration Midazolam HCl 100 mg/ Sodium 100 mls @ 1 mls/hr 07/16/17 09:30 07/16/17 10:27 Chloride IVPB Not Given TITR PAULINE Protocol 1 MG/HR Insulin Aspart 1 vial 07/15/17 16:30 07/16/17 06:45 Novolog Vial Sliding Scale - SQ 10 units ACHS PAULINE Administration Protocol Insulin Detemir 10 units 07/15/17 22:00 07/16/17 06:45 Levemir Vial SQ 10 units BID@0700,2200 [facility] Administration Labetalol HCl 10 mg 07/09/17 11:12 07/12/17 14:59 Normodyne Injection - IVPUSH 10 mg Q4H PRN Administration HYPERTENSION Metoprolol Tartrate 5 mg 07/10/17 21:59 07/16/17 10:13 Lopressor Injection - IVPUSH 5 mg Q4H PRN Administration HYPERTENSION Sodium Bicarbonate 650 mg 07/15/17 14:00 07/16/17 05:11 Sodium Bicarbonate - PO 650 mg TID PA[facility]INE Administration Vital Signs Temp 101.1 F H 07/16/17 10:00 Pulse 106 H 07/16/17 10:27 Resp 28 H 07/16/17 10:27 BP 199/92 07/16/17 10:13 Pulse Ox 100 07/16/17 10:29 Intake & Output 07/15/17 07/15/17 07/16/17 11:59 23:59 11:59 Intake Total 1322 1772 1220 Output Total 300 1999 Balance 1022 -228 920 Weight 208 lb 9.6 oz 211 lb Intake: IV 1322 1672 770 1/2 Normal Saline 1,000 1150 525 ml @ 75 mls/hr IV ASDIR [facility] Rx#:[id number] DIPRIVAN - 1,000,000 mcg 182 372 175 In 100 ml @ 5 MCG/KG/MIN 2.807 mls/hr IVPB TITR PA[facility]INE Rx#:[id number] NOVOLIN R VIAL *For 20 IVPUSH or IV DRIP Only* 100 UNITS In Normal Saline - 99 ml @ 0.1 UNITS/KG/HR 9.5 mls/hr IVPB TITR [facility] Rx#: [id number] Normal Saline - 1,000 ml 1050 @ 150 mls/hr IV ASDIR PAUL[facility] Rx#:[id number] protonix gtt 70 150 70 IVPB 100 100 Tube Feeding 210 Tube Irrigant 140 Output: Urine 300 1999 Rocha 300 1999 Other: Voiding Method Indwelling Catheter Indwelling Catheter Bowel Movement Yes Yes Weight Measurement Method [facility] Constitutional: Yes: Well Nourished, No Distress, intubated, sedated. Eyes: No: Sclera Icterus Respiratory: Yes: mechanical breath sounds (anteriorly (pt intubated)). No: Accessory Muscle Use, Rales, Wheezes Gastrointestinal: Yes: Normal Bowel Sounds. No: Distention, Hepatomegaly, Palpable Mass, Tenderness Cardiovascular: Yes: tachcyardic, Regular Rate and Rhythm JVD: No Heart Sounds: Yes: S1, S2. No: Gallop Murmur: No: Systolic Murmur, Diastolic Murmurs) Extremities: No: Cool (feet), Cyanosis Edema: No Integumentary: No: Jaundice Neurological: No: sedated Psychiatric: No: Agitated - Other Data Labs, Other Data: Laboratory Last Values WBC 19.9 K/mm3 (4.0-10.0) H 07/16/17 05:00 RBC 3.74 M/mm3 (4.00-5.60) L 07/16/17 05:00 Hgb 10.5 GM/dL (11.7-16.9) L 07/16/17 05:00 Hct 31.6 % (35.4-49) L 07/16/17 05:00 MCV 84.7 fl (80-96) 07/16/17 05:00 MCH 28.1 pg (25.7-33.7) 07/16/17 05:00 MCHC 33.2 g/dl (32.0-35.9) 07/16/17 05:00 RDW 17.3 % (11.9-15.9) H 07/16/17 05:00 Plt Count 243 K/MM3 (134-434) 07/16/17 05:00 MPV 10.0 fl (7.5-11.1) 07/16/17 05:00 Total Counted 100 07/14/17 05:00 Neutrophils % No Result Required. 07/16/17 05:00 Neutrophils % (Manual) 92.0 % (42.8-82.8) H* 07/14/17 05:00 Band Neutrophils % 1.0 % 07/08/17 05:15 Lymphocytes % No Result Required. 07/16/17 05:00 Lymphocytes % (Manual) 4.0 % (8-40) L D 07/14/17 05:00 Monocytes % 4.3 % (3.8-10.2) 07/15/17 05:30 Monocytes % (Manual) 3 % (3.8-10.2) L 07/14/17 05:00 Eosinophils % 0.2 % (0-4.5) D 07/15/17 05:30 Eosinophils % (Manual) 1.0 % (0-4.5) D 07/14/17 05:00 Basophils % 0.1 % (0-2.0) 07/15/17 05:30 Basophils % (Manual) 0.0 % (0-2.0) 07/07/17 05:00 Manual Slide Review No Result Required. 07/06/17 05:00 Platelet Estimate Adequate 07/14/17 05:00 Platelet Comment No clumping noted 07/07/17 05:00 PT with INR 13.30 SEC (9.98-11.88) H 07/06/17 05:00 INR 1.18 (0.82-1.09) H 07/06/17 05:00 PTT (Actin FS) 20.4 SECONDS (26.9-34.4) L 07/05/17 00:45 Anticoagulation Therapy Y 07/15/17 00:15 Puncture Site Right radial 07/15/17 00:15 Patient Temperature 101.3 07/08/17 09:49 ABG pH 7.29 (7.35-7.45) L 07/15/17 00:15 ABG pCO2 at Pt Temp 22.5 mmHg (35-45) L 07/15/17 00:15 ABG pO2 at Pt Temp 119.0 mmHg (80-100) H D 07/15/17 00:15 ABG HCO3 10.6 meq/L (22-26) L* 07/15/17 00:15 ABG O2 Sat (Measured) 97.8 % (90-98.9) 07/15/17 00:15 ABG O2 Content 16.6 % vol (15-22) 07/15/17 00:15 ABG Base Excess -14.2 meq/l (-2-2) L* 07/15/17 00:15 Sorin Test Y 07/15/17 00:15 VBG pH 6.98 (7.32-7.42) L* 07/05/17 01:00 POC VBG pCO2 69.6 mmHg (38-52) H* 07/05/17 01:00 POC VBG pO2 49.8 mmHg (28-48) H 07/05/17 01:00 Mixed VBG HCO3 15.6 meq/L (19-25) L 07/05/17 01:00 Carboxyhemoglobin 0.2 gm% (0.5-2.0) L 07/05/17 06:00 Methemoglobin 1.0 % (0.4-1.5) 07/05/17 06:00 O2 Delivery Device Y 07/15/17 00:15 Oxygen Flow Rate 30% 07/15/17 00:15 Vent Mode Y 07/15/17 00:15 Vent Rate 16 07/15/17 00:15 Mechanical Rate Y 07/15/17 00:15 PEEP 5.0 cmH2O 07/15/17 00:15 Pressure Support Vent 500 07/15/17 00:15 Sodium 144 mmol/L (136-145) 07/16/17 05:00 Potassium 4.3 mmol/L (3.5-5.1) 07/16/17 05:00 Chloride 117 mmol/L (98-107) H 07/16/17 05:00 Carbon Dioxide 10 mmol/L (21-32) L 07/16/17 05:00 Anion Gap 17 (8-16) H 07/16/17 05:00 BUN 106 mg/dL (7-18) H* 07/16/17 05:00 Creatinine 3.7 mg/dL (0.7-1.3) H 07/16/17 05:00 Creat Clearance w eGFR 19.42 (>60) 07/14/17 20:30 POC Glucometer 355.47760 UNITS (80-120) 07/15/17 22:20 Random Glucose 405 mg/dL (74-106) H* D 07/16/17 05:00 Fasting Glucose 535 mg/dL (70-105) H* 07/14/17 14:45 Lactic Acid 0.1 mmol/L (0.4-2.0) L 07/11/17 08:00 Calcium 7.4 mg/dL (8.5-10.1) L 07/16/17 05:00 Phosphorus 4.5 mg/dL (2.5-4.9) D 07/15/17 05:30 Magnesium 2.0 mg/dL (1.8-2.4) 07/15/17 05:30 Total Bilirubin 0.9 mg/dL (0.2-1.0) 07/14/17 20:30 Direct Bilirubin 0.4 mg/dL (0.0-0.2) H D 07/12/17 05:35 AST 30 U/L (15-37) 07/14/17 20:30 ALT 21 U/L (12-78) 07/14/17 20:30 Alkaline Phosphatase 52 U/L (45-117) 07/14/17 20:30 Creatine Kinase 237 IU/L (39-308) 07/07/17 13:00 Creatine Kinase Index 0.5 % (0.0-5.0) 07/07/17 13:00 CK-MB (CK-2) 1.282 ng/mL (0.5-3.6) 07/07/17 13:00 Troponin I 1.09 ng/ml (0.00-0.05) H* 07/07/17 13:00 B-Natriuretic Peptide 61277.37 pg/ml (5-125) H 07/05/17 00:45 Total Protein 5.8 g/dl (6.4-8.2) L 07/14/17 20:30 Albumin 1.8 g/dl (3.4-5.0) L 07/14/17 20:30 Urine Color Ltyellow 07/14/17 19:00 Urine Appearance Clear 07/14/17 19:00 Urine pH 6.0 (5.0-8.0) 07/14/17 19:00 Ur Specific Walsh 1.013 (1.001-1.035) 07/14/17 19:00 Urine Protein 2+ (NEGATIVE) H 07/14/17 19:00 Urine Glucose (UA) 3+ (NEGATIVE) H 07/14/17 19:00 Urine Ketones Negative (NEGATIVE) 07/14/17 19:00 Urine Blood 1+ (NEGATIVE) H 07/14/17 19:00 Urine Nitrite Negative (NEGATIVE) 07/14/17 19:00 Urine Bilirubin Negative (NEGATIVE) 07/14/17 19:00 Urine Urobilinogen Negative mg/dL (0.2-1.0) 07/14/17 19:00 Ur Leukocyte Esterase Negative (NEGATIVE) 07/14/17 19:00 Urine WBC (Auto) 3 /hpf (3-5) 07/14/17 19:00 Urine RBC (Auto) 2 /hpf (0-3) 07/14/17 19:00 Ur Epithelial Cells Rare /HPF (FEW) 07/12/17 12:04 Hyaline Casts 1 /lpf 07/05/17 02:10 Urine Mucus Rare 07/14/17 19:00 Ur Random Sodium 57 MMOL/L 07/06/17 14:50 Ur Random Potassium 32.6 MMOL/L 07/06/17 14:50 Ur Random Chloride 43 MMOL/L 07/06/17 14:50 Ur Random Urea Nitrogn 380 mg/dL 07/06/17 14:50 Gastric Occult Blood Positive 07/10/17 16:45 Tobramycin Trough 3.1 ug/ml (0.0-2.0) H* 07/06/17 05:00 Random Vancomycin < 0.800 ug/ml 07/05/17 05:00 Beta-(1,3)-D-Glucan 41 pg/mL (<80) 07/05/17 08:05 Blood Type B POSITIVE 07/10/17 19:40 Antibody Screen Negative 07/10/17 19:20 Crossmatch See Detail 07/10/17 19:20 tele: sr EKG 07/07: sinus tach with pvc's. new difufes TWI. worse in precordial leads. prolonged qtc. cxr 07/16: no chf ECG #1: sinus tach, normal axis, +/- long QT (mild); no pathol q waves; borderline ischemic appearing ST depressions inferior leads and V6 (no old but this was not reported on 12/24 office ecg) #2: NSR, STs resolving ECG 07/07: MPI 05/26: no ischemia, EF 33% (global echo 06/2017: nl lv size. LV fn mod-sev reduced (global). nl rv size/fn. 1+ mac/mr/tr. rvsp 30-40. + pleural effusion. Echo 05/26 (): mod LVE, mild global LV hypo; nl RV; mild LAE; mild MR Echo 12/24: nl LV and RV, nl valves est cct 35 mins a/p: 56 yo smoker with h/o mild lv dysfunction, htn, hl, ckd, hiv, dm p/w progressive sob and subsequent PEA arrest with EMS (s/p resuscitation). acute hypoxic resp failure, acute on chronic syst CHF, NSTEMI, cardiac arrest ( PEA): -initially with marked chf on cxr in setting of several days of worsening sob -suspect PEA due to severe chf decompensation with acute hypoxia -suspected anoxic brain injury now, neuro following -cxr w/o chf, no clinical chf, did not respond to brief trial of lasix gtt -resting echo 05/26 with mild LV dysfunction, ? echo overestimaged EF (nuclear estimated EF 33%) -NSTEMI trop trend here with peak 1.3 ([id number] pattern) -ECG initially here with borderline ST changes for ischemia (likely secondary) -? underlying CAD with balanced ischemia on nuclear. -repeat echo here with worsened systolic function. (consider invasive ischemia eval (cath) if he were to make meaningful recovery.) -cont beta blockade -no NORRIS/ARB given profound FLORECITA -remains without suspected volume/chf--no diuresis for now -per critical care, may need trach vs compassionate wean from vent FLORECITA on CKD: -baseline creat here 2.8 in 05/26. initially 2.4 on presentation to ER, up to 6s here, improved to 3s but now now trending up again -suspect hypoperfusion/atn as cause -holding lasix -renal following HTN: -bp elevated at times, will increase coreg to 12.5 bid HIV/Hep C: -per ID team anemia, gib: -likely ugib -hgb improved s/p prbcs, remains stable
[2017-07-16 11:27] LABS: ANISOCYTOSIS 3+; BAND % 0.9 %; HYPOCHROMIA 0; MACROCYTOSIS 0; METAMYELOCYTE 0 % (0-2); MICROCYTOSIS 3+; MYELOCYTE 1 % (0-2); PLATELET ESTIMATE NORMAL; POIKILOCYTOSIS 2+; POLYCHROMASIA 0; REACTIVE LYMPHOCYTES 1 % (0-80)
--- NOTE | 2017-07-16 12:01 | PN ---
Progress Note, Physician History of Present Illness: Pt seen and examined at bedside. He remains in the ICU. Pt remains intubated. - Current Medication List Current Medications: Active Medications Acetaminophen (Tylenol Oral Solution -) 650 mg PO Q6H PRN PRN Reason: FEVER OR PAIN Acetaminophen (Ofirmev Injection -) 1,000 mg IVPB Q6H PRN PRN Reason: FEVER OR PAIN Last Admin: 07/16/17 10:13 Dose: 1,000 mg Artificial Tears (Artificial Tears) 1 drop OU BID PRN PRN Reason: DRY EYES Carvedilol (Coreg -) 12.5 mg PO BID COUNTS INCLUDE 234 BEDS AT THE [facility] Dexamethasone Sodium Phosphate (Decadron Injection -) 5 mg IVPUSH BID COUNTS INCLUDE 234 BEDS AT THE [facility] Last Admin: 07/16/17 10:14 Dose: 5 mg Heparin Sodium (Porcine) (Heparin -) 5,000 unit SQ TID COUNTS INCLUDE 234 BEDS AT THE [facility] Last Admin: 07/16/17 05:11 Dose: 5,000 unit Propofol (Diprivan -) 1,000,000 mcg in 100 mls @ 2.807 mls/hr IVPB TITR PAULINE; 5 MCG/KG/MIN PRN Reason: Protocol Last Titration: 07/16/17 09:59 Dose: 45.96 mcg/kg/min, 25.8 mls/hr Pantoprazole Sodium 80 mg/ (Sodium Chloride) 100 mls @ 10 mls/hr IVPB Q10H COUNTS INCLUDE 234 BEDS AT THE [facility] PRN Reason: 8 MG/HR Last Admin: 07/16/17 05:46 Dose: 10 mls/hr Sodium Chloride (1/2 Normal Saline) 1,000 mls @ 75 mls/hr IV ASDIR COUNTS INCLUDE 234 BEDS AT THE [facility] Last Admin: 07/15/17 17:29 Dose: 75 mls/hr Midazolam HCl 100 mg/ Sodium (Chloride) 100 mls @ 1 mls/hr IVPB TITR PAULINE; 1 MG/ HR PRN Reason: Protocol Last Admin: 07/16/17 10:27 Dose: Not Given Insulin Aspart (Novolog Vial Sliding Scale -) 1 vial SQ ACHS COUNTS INCLUDE 234 BEDS AT THE [facility] PRN Reason: Protocol Last Admin: 07/16/17 06:45 Dose: 10 units Insulin Detemir (Levemir Vial) 10 units SQ BID@0700,2200 COUNTS INCLUDE 234 BEDS AT THE [facility] Last Admin: 07/16/17 06:45 Dose: 10 units Labetalol HCl (Normodyne Injection -) 10 mg IVPUSH Q4H PRN PRN Reason: HYPERTENSION Last Admin: 07/12/17 14:59 Dose: 10 mg Metoprolol Tartrate (Lopressor Injection -) 5 mg IVPUSH Q4H PRN PRN Reason: HYPERTENSION Last Admin: 07/16/17 10:13 Dose: 5 mg Sodium Bicarbonate (Sodium Bicarbonate -) 650 mg PO TID [facility] Last Admin: 07/16/17 05:11 Dose: 650 mg - Objective Vital Signs: Vital Signs Temperature 101.1 F H 07/16/17 10:00 Pulse Rate 106 H 07/16/17 10:27 Respiratory Rate 26 H 07/16/17 11:43 Blood Pressure 199/92 07/16/17 10:13 O2 Sat by Pulse Oximetry (%) 100 07/16/17 10:29 Constitutional: Yes: Calm Eyes: Yes: Conjunctiva Clear HENT: Yes: Atraumatic Neck: Yes: Supple Cardiovascular: Yes: S1, S2 Respiratory: Yes: Mechanically Ventilated Gastrointestinal: Yes: Soft Genitourinary: Yes: Rocha Present Musculoskeletal: Yes: Muscle Weakness Edema: Yes Edema: LUE: Trace, RUE: Trace, LLE: Trace, RLE: Trace Neurological: Yes: Lethargy Labs: CBC, BMP 07/16/17 05:00 07/16/17 05:00 INR, PTT INR 1.18 (0.82-1.09) H 07/06/17 05:00 - ....Imaging Chest X-ray: Report Reviewed Problem List - Problems (1) FLORECITA (acute kidney injury) Code(s): N17.9 - ACUTE KIDNEY FAILURE, UNSPECIFIED (2) CHF (congestive heart failure) Code(s): I50.9 - HEART FAILURE, UNSPECIFIED Qualifiers: Congestive heart failure type: unspecified congestive heart failure type Congestive heart failure chronicity: unspecified congestive heart failure chronicity Qualified Code(s): I50.9 - Heart failure, unspecified (3) Cardiopulmonary arrest with successful resuscitation Code(s): I46.9 - CARDIAC ARREST, CAUSE UNSPECIFIED (4) Chronic kidney disease Code(s): N18.9 - CHRONIC KIDNEY DISEASE, UNSPECIFIED (5) Hypertension Code(s): I10 - ESSENTIAL (PRIMARY) HYPERTENSION (6) Chronic kidney disease Code(s): N18.9 - CHRONIC KIDNEY DISEASE, UNSPECIFIED Assessment/Plan Current Medications Generic Name Dose Route Start Last Admin Trade Name Luis Fernando PRN Reason Stop Dose Admin Acetaminophen 650 mg 07/14/17 16:02 Tylenol Oral Solution - PO Q6H PRN FEVER OR PAIN Acetaminophen 1,000 mg 07/15/17 22:23 07/16/17 10:13 Ofirmev Injection - IVPB 1,000 mg Q6H PRN Administration FEVER OR PAIN Artificial Tears 1 drop 07/12/17 15:20 Artificial Tears OU BID PRN DRY EYES Carvedilol 12.5 mg 07/16/17 11:13 Coreg - PO BID PA[facility] Dexamethasone Sodium Phosphate 5 mg 07/16/17 10:15 07/16/17 10:14 Decadron Injection - IVPUSH 5 mg BID PA[facility]INE Administration Heparin Sodium (Porcine) 5,000 unit 07/08/17 15:30 07/16/17 05:11 Heparin - SQ 5,000 unit TID PA[facility]INE Administration Propofol 1,000,000 mcg in 100 mls @ 2.807 mls/hr 07/10/17 14:00 07/16/17 09: 59 Diprivan - IVPB 45.96 mcg/kg/min TITR PAULINE 25.8 mls/hr Protocol Titration 5 MCG/KG/MIN Pantoprazole Sodium 80 mg/ 100 mls @ 10 mls/hr 07/10/17 19:15 07/16/17 05:46 Sodium Chloride IVPB 10 mls/hr Q10H PA[facility]INE Administration 8 MG/HR Sodium Chloride 1,000 mls @ 75 mls/hr 07/15/17 15:59 07/15/17 17:29 1/2 Normal Saline IV 75 mls/hr ASDIR PA[facility] Administration Midazolam HCl 100 mg/ Sodium 100 mls @ 1 mls/hr 07/16/17 09:30 07/16/17 10:27 Chloride IVPB Not Given TITR PAULINE Protocol 1 MG/HR Insulin Aspart 1 vial 07/15/17 16:30 07/16/17 06:45 Novolog Vial Sliding Scale - SQ 10 units ACHS PA[facility]INE Administration Protocol Insulin Detemir 10 units 07/15/17 22:00 07/16/17 06:45 Levemir Vial SQ 10 units BID@0700,2200 [facility] Administration Labetalol HCl 10 mg 07/09/17 11:12 07/12/17 14:59 Normodyne Injection - IVPUSH 10 mg Q4H PRN Administration HYPERTENSION Metoprolol Tartrate 5 mg 07/10/17 21:59 07/16/17 10:13 Lopressor Injection - IVPUSH 5 mg Q4H PRN Administration HYPERTENSION Sodium Bicarbonate 650 mg 07/15/17 14:00 07/16/17 05:11 Sodium Bicarbonate - PO 650 mg TID PAULINE Administration Impression 1. FLORECITA 2. CKD 3. cardiac arrest 4. CHF 5. HIV 6. hypomagnesemia 7. anoxic brain injury 8. anemia 9. hyperglycemia 10. HTN 11. acidosis Plan - will increase water with tube feeds - will add bicarb to fluids - renal function is worse - neuro follow up - family still discussing GOC - cont to monitor renal function - woud not restart lisinopril at this point - vent support - likely ATN from hypotension during arrest, cont to monitor for recovery - cont to monitor urine output
[2017-07-16] MEDS ORDERED: SODIUM BICARBONATE 8.4% 50 MEQ/50 ML DISP.SYRIN IVPUSH ONE (12:02)
--- NOTE | 2017-07-16 13:30 | PN ---
Teaching Attending Note Name of Resident: Dione Hidalgo ATTENDING PHYSICIAN STATEMENT I saw and evaluated the patient. I reviewed the resident's note and discussed the case with the resident. I agree with the resident's findings and plan as documented. SUBJECTIVE: Pt seen and examined in the ICU. Remains intubated, sedated, tachypneic. Febrile overnight. OBJECTIVE: Last Vital Signs Temp Pulse Resp BP Pulse Ox 101.1 F H 108 H 26 H 188/90 100 07/16/17 10:00 07/16/17 12:00 07/16/17 12:00 07/16/17 12:00 07/16/17 10:29 Intake & Output 07/13/17 07/14/17 07/15/17 07/16/17 23:59 23:59 23:59 23:59 Intake Total 1516 2886 3094 1220 Output Total 3200 2900 2300 300 Balance -1684 -14 794 920 Weight 209 lb 6 oz 209 lb 8 oz 208 lb 9.6 oz 211 lb Gen: intubated, sedated, tachypneic Heart: tachycardic, regular Lung: scattered rhonchi Abd: soft, nontender Ext: + edema CBC, BMP 07/16/17 05:00 07/16/17 05:00 Active Medications Acetaminophen (Tylenol Oral Solution -) 650 mg PO Q6H PRN PRN Reason: FEVER OR PAIN Acetaminophen (Ofirmev Injection -) 1,000 mg IVPB Q6H PRN PRN Reason: FEVER OR PAIN Last Admin: 07/16/17 10:13 Dose: 1,000 mg Artificial Tears (Artificial Tears) 1 drop OU BID PRN PRN Reason: DRY EYES Carvedilol (Coreg -) 12.5 mg PO BID [facility] Dexamethasone Sodium Phosphate (Decadron Injection -) 5 mg IVPUSH BID [facility] Last Admin: 07/16/17 10:14 Dose: 5 mg Heparin Sodium (Porcine) (Heparin -) 5,000 unit SQ TID [facility] Last Admin: 07/16/17 05:11 Dose: 5,000 unit Propofol (Diprivan -) 1,000,000 mcg in 100 mls @ 2.807 mls/hr IVPB TITR PAULINE; 5 MCG/KG/MIN PRN Reason: Protocol Last Titration: 07/16/17 09:59 Dose: 45.96 mcg/kg/min, 25.8 mls/hr Pantoprazole Sodium 80 mg/ (Sodium Chloride) 100 mls @ 10 mls/hr IVPB Q10H [facility] PRN Reason: 8 MG/HR Last Admin: 07/16/17 05:46 Dose: 10 mls/hr Midazolam HCl 100 mg/ Sodium (Chloride) 100 mls @ 1 mls/hr IVPB TITR PAULINE; 1 MG/ HR PRN Reason: Protocol Last Admin: 07/16/17 10:27 Dose: Not Given Sodium Bicarbonate 50 meq/ (Sodium Chloride) 1,050 mls @ 83 mls/hr IV Q12H [facility] Insulin Aspart (Novolog Vial Sliding Scale -) 1 vial SQ ACHS [facility] PRN Reason: Protocol Last Admin: 07/16/17 12:04 Dose: 10 units Insulin Detemir (Levemir Vial) 10 units SQ BID@0700,2200 [facility] Last Admin: 07/16/17 06:45 Dose: 10 units Labetalol HCl (Normodyne Injection -) 10 mg IVPUSH Q4H PRN PRN Reason: HYPERTENSION Last Admin: 07/12/17 14:59 Dose: 10 mg Metoprolol Tartrate (Lopressor Injection -) 5 mg IVPUSH Q4H PRN PRN Reason: HYPERTENSION Last Admin: 07/16/17 10:13 Dose: 5 mg Sodium Bicarbonate (Sodium Bicarbonate -) 650 mg PO TID [facility] Last Admin: 07/16/17 05:11 Dose: 650 mg ASSESSMENT AND PLAN: s/p Cardiopulmonary Arrest Likely Anoxic Brain Injury Acute on Chronic Systolic Heart Failure +Troponins Acute on Chronic Renal Failure Lactic Acidosis resolved HTN HIV Hep C Smoker - completed empiric antibiotics - decrease decadron - monitor urine output, creatinine - daily sedation vacations to assess mental status - taper FiO2 to keep SpO2 >90% - not a candidate for weaning due to poor mental status - enteral feeds - DVT/GI prophylaxis - poor overall prognosis for meaningful recovery, had discussed with daughter at bedside, she had stated that pt would not want to be kept alive without quality of life critical care time spent in reviewing chart, evaluating patient and formulating plan 35 min
[2017-07-16] MEDS ORDERED: PT OWN MED DRAWER 7, Y5N ONE (15:01)
[2017-07-16] MEDS: SODIUM BICARBONATE 8.4% - 50 MEQ in SODIUM CHLORIDE 0.45% 1,000 ML IV SCH (15:04)
--- NOTE | 2017-07-16 15:56 | PN ---
Physical Exam: SUBJECTIVE: Patient seen and examined at bedside. 24 hr events -Febrile, tmax 100.4F -no acute events overnight -has been off abx, as fevers most likely central Today -Decadron has been tapered to 5 mg IVP BID -Pt tachycardic, tachypneic, abdominal breathing when off propofol- not tolerating well -awaiting family discussion -BG uncontrolled in 400's, insulin gtt to start this evening OBJECTIVE: Vital Signs Period Temp Pulse Resp BP Sys/[place] Pulse Ox Last 24 Hr 99.8 F-102 F 79-111 24-39 154-199/75-99 100-100 GENERAL: The patient is sedated, vented HEAD: Normal with no signs of trauma. EYES: PERRL, extraocular movements intact, sclera anicteric, conjunctiva clear. NECK: Trachea midline, supple. LUNGS: coarse breath sounds appreciated b/l, abdominal breathing when sedation was d/c HEART: Regular rate and rhythm, S1, S2 without murmur, rub or gallop. ABDOMEN: Soft, nontender, nondistended, normoactive bowel sounds EXTREMITIES: 2+ dorsalis pedis pulses, 1+ pitting edema b/l NEUROLOGICAL: unable to assess as pt sedated Laboratory Results - last 24 hr 07/15/17 07/15/17 07/15/17 02:20 03:24 05:26 WBC RBC Hgb Hct MCV MCH MCHC RDW Plt Count MPV Neutrophils % Neutrophils % (Manual) Band Neutrophils % Lymphocytes % Lymphocytes % (Manual) Monocytes % (Manual) Basophils % (Manual) Myelocytes % (Man) Metamyelocytes Hypochromia Platelet Estimate Polychromasia Poikilocytosis Anisocytosis Microcytosis Macrocytosis Sodium Potassium Chloride Carbon Dioxide Anion Gap BUN Creatinine POC Glucometer [phone] Random Glucose Calcium 07/15/17 07/15/17 07/16/17 17:27 22:20 05:00 WBC 19.9 H RBC 3.74 L Hgb 10.5 L Hct 31.6 L MCV 84.7 MCH 28.1 MCHC 33.2 RDW 17.3 H Plt Count 243 MPV 10.0 Neutrophils % No Result Required. Neutrophils % (Manual) 90.5 H* Band Neutrophils % 0.9 Lymphocytes % No Result Required. Lymphocytes % (Manual) 2.9 L D Monocytes % (Manual) 4 Basophils % (Manual) 0.0 Myelocytes % (Man) 1 Metamyelocytes 0 Hypochromia 0 Platelet Estimate Normal Polychromasia 0 Poikilocytosis 2+ Anisocytosis 3+ Microcytosis 3+ Macrocytosis 0 Sodium Potassium Chloride Carbon Dioxide Anion Gap BUN Creatinine POC Glucometer > [phone] Random Glucose Calcium 07/16/17 05:00 WBC RBC Hgb Hct MCV MCH MCHC RDW Plt Count MPV Neutrophils % Neutrophils % (Manual) Band Neutrophils % Lymphocytes % Lymphocytes % (Manual) Monocytes % (Manual) Basophils % (Manual) Myelocytes % (Man) Metamyelocytes Hypochromia Platelet Estimate Polychromasia Poikilocytosis Anisocytosis Microcytosis Macrocytosis Sodium 144 Potassium 4.3 Chloride 117 H Carbon Dioxide 10 L Anion Gap 17 H BUN 106 H* Creatinine 3.7 H POC Glucometer Random Glucose 405 H* D Calcium 7.4 L Active Medications Generic Name Dose Route Start Last Admin Trade Name Freq PRN Reason Stop Dose Admin Acetaminophen 650 mg 07/14/17 16:02 Tylenol Oral Solution - PO Q6H PRN FEVER OR PAIN Acetaminophen 1,000 mg 07/15/17 22:23 07/16/17 10:13 Ofirmev Injection - IVPB 1,000 mg Q6H PRN Administration FEVER OR PAIN Artificial Tears 1 drop 07/12/17 15:20 Artificial Tears OU BID PRN DRY EYES Carvedilol 12.5 mg 07/16/17 11:13 Coreg - PO BID PA[facility] Dexamethasone Sodium Phosphate 5 mg 07/16/17 10:15 07/16/17 10:14 Decadron Injection - IVPUSH 5 mg BID PA[facility] Administration Heparin Sodium (Porcine) 5,000 unit 07/08/17 15:30 07/16/17 14:07 Heparin - SQ 5,000 unit TID PAULINE Administration Propofol 1,000,000 mcg in 100 mls @ 2.807 mls/hr 07/10/17 14:00 07/16/17 09: 59 Diprivan - IVPB 45.96 mcg/kg/min TITR PAULINE 25.8 mls/hr Protocol Titration 5 MCG/KG/MIN Pantoprazole Sodium 80 mg/ 100 mls @ 10 mls/hr 07/10/17 19:15 07/16/17 14:24 Sodium Chloride IVPB 10 mls/hr Q10H PA[facility] Administration 8 MG/HR Midazolam HCl 100 mg/ Sodium 100 mls @ 1 mls/hr 07/16/17 09:30 07/16/17 10:27 Chloride IVPB Not Given TITR PAULINE Protocol 1 MG/HR Sodium Bicarbonate 50 meq/ 1,050 mls @ 83 mls/hr 07/16/17 12:02 07/16/17 15: 04 Sodium Chloride IV 83 mls/hr Q12H PA[facility] Administration Insulin Aspart 1 vial 07/15/17 16:30 07/16/17 12:04 Novolog Vial Sliding Scale - SQ 10 units ACHS PA[facility]INE Administration Protocol Insulin Detemir 10 units 07/15/17 22:00 07/16/17 06:45 Levemir Vial SQ 10 units BID@0700,2200 [facility] Administration Labetalol HCl 10 mg 07/09/17 11:12 07/12/17 14:59 Normodyne Injection - IVPUSH 10 mg Q4H PRN Administration HYPERTENSION Metoprolol Tartrate 5 mg 07/10/17 21:59 07/16/17 10:13 Lopressor Injection - IVPUSH 5 mg Q4H PRN Administration HYPERTENSION Sodium Bicarbonate 650 mg 07/15/17 14:00 07/16/17 14:07 Sodium Bicarbonate - PO 650 mg TID PAULINE Administration ASSESSMENT/PLAN: Pt is a 56 M w/ PMH HTN, HL, DM, CKD, and HIV on HAART who presented to ED with cardiopulmonary arrest. Pt is now intubated and sedated. Prior to arriving at the ED, pt had been complaining of wheezing and SOB. On arrival to ED, pt was in arrest and coded for five minutes. Pt currently being managed in ICU. CARDIO #s/p Cardiopulmonary arrest -pt coded in ED for >5 min -intubated, on vent -Echo: moderate-severe LV dysfunction #HTN-better controlled Currently on: - Coreg 6.25 mg PO BID - Labetalol 10mg IVP q4h PRN - Lopressor 5mg IVP q4h PRN - regimen has been changed- better control now NEURO -Anoxic brain injury most likely 2/2 arrest -Head CT: loss of balderas/white junction, sulcal effacement, w/o signs of herniation -Continue Decadron taper for decompression. Currently 5mg IVP BID. Tomorrow will taper to 2, 0. -Abnormal EEG -sedation vacations to assess mental status- however has not been tolerating #ID -HIV positive -pt sees Dr. Vital as outpatient -HIV meds on hold for now -abx have been stopped as fever most likely central NEPHRO -has been started on PO bicarb 650 mg PO TID -elevated BUN may be 2/2 to steroids -worsening renal fnc, today BUN 106 -possible ATN 2/2 arrest -hx CKD -Continue to monitor BMP, UO #DKA -sugars poorly controlled, back in 400's -insulin gtt to restart tonight -continue to monitor BMP, BGM #metabolic acidosis -Continue PO sodium bicarb 650 mg PO TID ENDOCRINE #DM -ISS -BGM PALLIATIVE -Will f/u to discuss possible trach, etc. with family, daughter #F/E/N Will monitor electrolytes Continue tube feeds #PPx -Hep SubQ BID -Protonix gtt #Dispo Continued ICU management, unfortunately poor prognosis. Will Visit type - Emergency Visit Emergency Visit: No - New Patient This patient is new to me today: No - Critical Care Critical Care patient: Yes Total Critical Care Time (in minutes): 31 Critical Care Statement: The care of this patient involved high complexity decision making to prevent further life threatening deterioration of the patient 's condition and/or to evaluate & treat vital organ system(s) failure or risk of failure.
[2017-07-16] MEDS: PROPOFOL 1,000,000 MCG/100 ML VIAL IVPB SCH ×3 (19:00→23:17)
[2017-07-16] MEDS ORDERED: LABETALOL HCL 5 MG/1 ML (100MG/20 ML VIAL) IVPUSH ONE ×2 (19:50→21:30)
[2017-07-16] MEDS: INSULIN REGULAR 100 UNITS in SODIUM CHLORIDE 99 ML IVPB SCH (21:09)
[2017-07-16] MEDS ORDERED: KCL 10 MEQ IVPB 10 MEQ/100 ML INFUS.BAG IVPB SCH (21:30)
[2017-07-16] MEDS ORDERED: POTASSIUM CHLORIDE 20 MEQ in SODIUM CHLORIDE 250 ML IVPB ONE (21:30)
[2017-07-16] MEDS: CARVEDILOL 12.5 MG TABLET (FP) PO SCH (21:41)
[2017-07-16] MEDS: ACETAMINOPHEN 650 MG/20.3 ML ORAL SOLUTION (CUPS) PO PRN (21:41)
[2017-07-16 22:48] LABS: BASO % 0.8 % (0-2.0); EOS % 1.5 % (0-4.5); MCH 28.5 pg (25.7-33.7); MCHC 33.3 g/dl (32.0-35.9); MEAN CELL VOLUME 85.4 fl (80-96); MEAN PLT VOLUME 10.1 fl (7.5-11.1); NEUT % 78.7 % (42.8-82.8); PLATELET COUNT 205 K/MM3 (134-434); RDW 17.4 % (11.9-15.9); WHITE BLOOD COUNT 15.5 K/mm3 (4.0-10.0)
[2017-07-16 23:15] LABS: ALBUMIN 1.9 g/dl (3.4-5.0); ANION GAP 17 (8-16); BILIRUBIN,TOTAL 0.6 mg/dL (0.2-1.0); CALCIUM 7.1 mg/dL (8.5-10.1); CO2 11 mmol/L (21-32); CREATININE 3.6 mg/dL (0.7-1.3); TOT PROT 5.3 g/dl (6.4-8.2)
[2017-07-16 23:16] LABS: ALK PHOS 49 U/L (45-117)
[2017-07-16 23:22] LABS: SGOT/AST 34 U/L (15-37)
[2017-07-16 23:23] LABS: GLUCOSE,RANDOM 453 mg/dL (74-106)
--- NOTE | 2017-07-16 23:28 | PN ---
Progress Note, Physician - Current Medication List Current Medications: Active Medications Acetaminophen (Tylenol Oral Solution -) 650 mg PO Q6H PRN PRN Reason: FEVER OR PAIN Last Admin: 07/16/17 21:41 Dose: 650 mg Acetaminophen (Ofirmev Injection -) 1,000 mg IVPB Q6H PRN PRN Reason: FEVER OR PAIN Last Admin: 07/16/17 10:13 Dose: 1,000 mg Artificial Tears (Artificial Tears) 1 drop OU BID PRN PRN Reason: DRY EYES Carvedilol (Coreg -) 12.5 mg PO BID [facility] Last Admin: 07/16/17 21:41 Dose: 12.5 mg Dexamethasone Sodium Phosphate (Decadron Injection -) 5 mg IVPUSH BID [facility] Last Admin: 07/16/17 21:41 Dose: 5 mg Heparin Sodium (Porcine) (Heparin -) 5,000 unit SQ TID [facility] Last Admin: 07/16/17 21:41 Dose: 5,000 unit Propofol (Diprivan -) 1,000,000 mcg in 100 mls @ 2.807 mls/hr IVPB TITR PAULINE; 5 MCG/KG/MIN PRN Reason: Protocol Last Admin: 07/16/17 21:42 Dose: Not Given Pantoprazole Sodium 80 mg/ (Sodium Chloride) 100 mls @ 10 mls/hr IVPB Q10H [facility] PRN Reason: 8 MG/HR Last Admin: 07/16/17 14:24 Dose: 10 mls/hr Midazolam HCl 100 mg/ Sodium (Chloride) 100 mls @ 1 mls/hr IVPB TITR PAULINE; 1 MG/ HR PRN Reason: Protocol Last Admin: 07/16/17 10:27 Dose: Not Given Sodium Bicarbonate 50 meq/ (Sodium Chloride) 1,050 mls @ 83 mls/hr IV Q12H [facility] Last Admin: 07/16/17 15:04 Dose: 83 mls/hr Insulin Human Regular 100 (units/ Sodium Chloride) 100 mls @ 9.57 mls/hr IVPB TITR PAULINE; 0.1 UNITS/KG/HR PRN Reason: Protocol Last Admin: 07/16/17 21:09 Dose: 0.1 units/kg/hr, 9.57 mls/hr Potassium Chloride 20 meq/ (Sodium Chloride) 260 mls @ 130 mls/hr IVPB ONCE ONE Stop: 07/16/17 23:29 Labetalol HCl (Normodyne Injection -) 10 mg IVPUSH Q4H PRN PRN Reason: HYPERTENSION Last Admin: 07/12/17 14:59 Dose: 10 mg Metoprolol Tartrate (Lopressor Injection -) 5 mg IVPUSH Q4H PRN PRN Reason: HYPERTENSION Last Admin: 07/16/17 10:13 Dose: 5 mg Sodium Bicarbonate (Sodium Bicarbonate -) 650 mg PO TID [facility] Last Admin: 07/16/17 21:41 Dose: 650 mg - Objective Vital Signs: Vital Signs Temperature 101.1 F H 07/16/17 10:00 Pulse Rate 84 07/16/17 20:00 Respiratory Rate 26 H 07/16/17 21:10 Blood Pressure 184/81 07/16/17 20:00 O2 Sat by Pulse Oximetry (%) 100 07/16/17 10:29 Labs: CBC, BMP 07/16/17 22:00 07/16/17 22:00 INR, PTT INR 1.18 (0.82-1.09) H 07/06/17 05:00 Problem List - Problems (1) Respiratory failure Code(s): J96.90 - RESPIRATORY FAILURE, UNSP, UNSP W HYPOXIA OR HYPERCAPNIA (2) Cardiopulmonary arrest with successful resuscitation Code(s): I46.9 - CARDIAC ARREST, CAUSE UNSPECIFIED (3) Uncontrolled diabetes mellitus Code(s): E11.65 - TYPE 2 DIABETES MELLITUS WITH HYPERGLYCEMIA (4) Acute on chronic diastolic CHF (congestive heart failure) Code(s): I50.33 - ACUTE ON CHRONIC DIASTOLIC (CONGESTIVE) HEART FAILURE
[2017-07-17] MEDS ORDERED: PT OWN MED DRAWER 7, Y5N ONE ×3 (00:34→15:46)
[2017-07-17] MEDS: SODIUM BICARBONATE 8.4% - 50 MEQ in SODIUM CHLORIDE 0.45% 1,000 ML IV SCH (00:38)
[2017-07-17] MEDS: KCL 10 MEQ IVPB 10 MEQ/100 ML INFUS.BAG IVPB SCH ×2 (00:38→01:49)
[2017-07-17] MEDS: SODIUM BICARBONATE 650 MG TABLET PO SCH ×3 (05:18→22:05)
[2017-07-17] MEDS: HEPARIN NA (PORCINE) 5,000 UNITS/ML 1ML VIAL SQ SCH ×3 (05:18→22:04)
[2017-07-17] MEDS: PANTOPRAZOLE SODIUM 80 MG in SODIUM CHLORIDE 100 ML IVPB SCH ×3 (05:18→22:07)
[2017-07-17 06:15] LABS: MCH 28.2 pg (25.7-33.7); MCHC 33.2 g/dl (32.0-35.9); MEAN CELL VOLUME 84.8 fl (80-96); PLATELET COUNT 203 K/MM3 (134-434); RDW 17.2 % (11.9-15.9); WHITE BLOOD COUNT 16.2 K/mm3 (4.0-10.0)
[2017-07-17] MEDS: PROPOFOL 1,000,000 MCG/100 ML VIAL IVPB SCH ×2 (06:18→22:05)
[2017-07-17] MEDS: INSULIN REGULAR 100 UNITS in SODIUM CHLORIDE 99 ML IVPB SCH (06:43)
--- NOTE | 2017-07-17 08:42 | PN ---
Progress Note (short form) - Note Progress Note: ID Remains intubated Really no change Unresponsive with EEG showing some activity as per neurology On and off fevers since admission thought to be central in origin Steroids for brain edema stopped Selected Entries 07/17/17 07/17/17 06:00 06:27 Temperature 99.4 F Pulse Rate 63 Respiratory 22 Rate Blood Pressure 126/78 Microbiology 07/15/17 00:01 Sputum - Endotrachea Suction/Ventilator Gram Stain - Final 07/16/17 08:20 Blood - Peripheral Venous Blood Culture - Preliminary NO GROWTH OBTAINED AFTER 24 HOURS, INCUBATION TO CONTINUE FOR 4 DAYS. 07/16/17 08:20 Blood - Peripheral Venous Blood Culture - Preliminary NO GROWTH OBTAINED AFTER 24 HOURS, INCUBATION TO CONTINUE FOR 4 DAYS. Laboratory Tests 07/16/17 07/17/17 22:00 05:55 WBC 16.2 H Hgb 10.9 L Hct 32.7 L Plt Count 203 BUN 105 H* Random Glucose 453 H* Assessment Anoxic encephalopathy Respiratory failure Diabetes Chronic and acute kidney failure HIV infection Cardiopulmonary arrest Plan Observe off antibiotics Discussion with family latter today regarding rachelle Vital MD Problem List - Problems (1) Cardiopulmonary arrest with successful resuscitation Code(s): I46.9 - CARDIAC ARREST, CAUSE UNSPECIFIED (2) Uncontrolled diabetes mellitus Code(s): E11.65 - TYPE 2 DIABETES MELLITUS WITH HYPERGLYCEMIA (3) Sepsis Code(s): A41.9 - SEPSIS, UNSPECIFIED ORGANISM (4) Chronic kidney disease Code(s): N18.9 - CHRONIC KIDNEY DISEASE, UNSPECIFIED (5) Hypertension Code(s): I10 - ESSENTIAL (PRIMARY) HYPERTENSION
[2017-07-17 08:48] LABS: ANION GAP 14 (8-16); CALCIUM 7.2 mg/dL (8.5-10.1); CO2 13 mmol/L (21-32); CREATININE 3.7 mg/dL (0.7-1.3); GLUCOSE,RANDOM 249 mg/dL (74-106); PHOSPHOROUS 6.1 mg/dL (2.5-4.9)
--- NOTE | 2017-07-17 09:22 | PN ---
Progress Note (short form) - Note Progress Note: Neurology History of Present Illness: Mr. Welch is a 56 y/o man w/ HTN, HL, DM, CKD, HIV on HAART, EF 49.5%, BIBA for SOB. Reportedly had been experiencing worsening SOB & SAMUELS w/ assoc wheezing for several days prior to admission. While in route developed further respiratory distress and in ER had agonal breathing and unresponsive. No pulse noted on stretcher transferand chest compressions were initiated. The Pt was resuscitated per ACLS protocol for approximately 5 minutes according to note, receiving epi x 2, bicarb x 2. Pt was intubated and placed on ventilator and given nebulizers and steroids. Pt admitted to the ICU s/p Cardiac Arrest and respiratory failure. The patient has been on propofol but having myoclonic twitches especially in right foot. Given his history, this is likely myoclonic jerks 2/2 to anoxic brain injury. Klonipin was started, twitching improved and not visible at this time. There is minimal pupil contriction from 3mm to 2mm and therefore does not meet criteria for brain . However, only minimal brainstem activity and no significant improvement thus far. EEG completed, showed mix of theta and beta activity, consistent with encephalopathy. Again, not brain . CT head completed and showed cerebral edema, repeated and showed improved cerebral edema likely due to steroids given. Clinically without signficiant improvement. Spoke to resident about tapering Decadron yesterday and was to be cut in half each day. Attempts to wean propofol led to tachycardia and tachypnea. Spoke to nurse this AM and again propofol reduction led to tachypnea into the 40's though continues to overbreathing the vent. Gets tachycardic with propofol reduction as well. No significant neurologic improvement. Spoke to resident this AM and they will be speaking to family regarding goals of care. Decadron to be tapered further today , decreased to 2mg. Can be stopped tomorrow. Active Medications Acetaminophen (Tylenol Oral Solution -) 650 mg PO Q6H PRN PRN Reason: FEVER OR PAIN Last Admin: 07/16/17 21:41 Dose: 650 mg Acetaminophen (Ofirmev Injection -) 1,000 mg IVPB Q6H PRN PRN Reason: FEVER OR PAIN Last Admin: 07/16/17 10:13 Dose: 1,000 mg Artificial Tears (Artificial Tears) 1 drop OU BID PRN PRN Reason: DRY EYES Carvedilol (Coreg -) 12.5 mg PO BID [facility] Last Admin: 07/16/17 21:41 Dose: 12.5 mg Dexamethasone Sodium Phosphate (Decadron Injection -) 2 mg IVPUSH BID [facility] Heparin Sodium (Porcine) (Heparin -) 5,000 unit SQ TID [facility] Last Admin: 07/17/17 05:18 Dose: 5,000 unit Propofol (Diprivan -) 1,000,000 mcg in 100 mls @ 2.807 mls/hr IVPB TITR [facility]; 5 MCG/KG/MIN PRN Reason: Protocol Last Admin: 07/17/17 06:18 Dose: 45.96 mcg/kg/min, 25.798 mls/hr Pantoprazole Sodium 80 mg/ (Sodium Chloride) 100 mls @ 10 mls/hr IVPB Q10H [facility] PRN Reason: 8 MG/HR Last Admin: 07/17/17 05:18 Dose: 10 mls/hr Midazolam HCl 100 mg/ Sodium (Chloride) 100 mls @ 1 mls/hr IVPB TITR PAULINE; 1 MG/ HR PRN Reason: Protocol Last Admin: 07/16/17 10:27 Dose: Not Given Sodium Bicarbonate 50 meq/ (Sodium Chloride) 1,050 mls @ 83 mls/hr IV Q12H [facility] Last Admin: 07/17/17 00:38 Dose: Not Given Insulin Human Regular 100 (units/ Sodium Chloride) 100 mls @ 9.57 mls/hr IVPB TITR PAULINE; 0.1 UNITS/KG/HR PRN Reason: Protocol Last Admin: 07/17/17 06:43 Dose: 0.01 units/kg/hr, 1 mls/hr Labetalol HCl (Normodyne Injection -) 10 mg IVPUSH Q4H PRN PRN Reason: HYPERTENSION Last Admin: 07/12/17 14:59 Dose: 10 mg Metoprolol Tartrate (Lopressor Injection -) 5 mg IVPUSH Q4H PRN PRN Reason: HYPERTENSION Last Admin: 07/16/17 10:13 Dose: 5 mg Sodium Bicarbonate (Sodium Bicarbonate -) 650 mg PO TID [facility] Last Admin: 07/17/17 05:18 Dose: 650 mg Physical Exam Vital Signs Temperature 99.4 F 07/17/17 06:00 Pulse Rate 66 07/17/17 08:00 Respiratory Rate 21 07/17/17 08:00 Blood Pressure 141/62 07/17/17 08:00 O2 Sat by Pulse Oximetry (%) 100 07/16/17 23:59 Constitutional: Yes: Well Nourished, No Distress, Calm Eyes: Yes: PERRL, Other (R Upward Lat Gaze.) HENT: Yes: WNL, Atraumatic, Normocephalic Neck: Yes: WNL, Supple, Trachea Midline Cardiovascular: Yes: WNL, Regular Rate and Rhythm Respiratory: Yes: Diminished, Mechanically Ventilated, Wheezes Gastrointestinal: Yes: Abdomen, Obese, Distention, Hyperactive Bowel Sounds ...Rectal Exam: Yes: Deferred Renal/: Yes: Rocha Present Breast(s): Yes: WNL Extremities: Yes: Other (Clubbed Fingers.) Edema: Yes Edema: LLE: 1+, RLE: 1+ Peripheral Pulses WNL: Yes Integumentary: Yes: WNL Neurological: No facial droop, not responding to pain, not gagging on suction, R pupil 2mm --> 1mm, no spontaneous movement, R foot myoclonic twitching noted CBCD WBC 16.2 K/mm3 (4.0-10.0) H 07/17/17 05:55 RBC 3.86 M/mm3 (4.00-5.60) L 07/17/17 05:55 Hgb 10.9 GM/dL (11.7-16.9) L 07/17/17 05:55 Hct 32.7 % (35.4-49) L 07/17/17 05:55 MCV 84.8 fl (80-96) 07/17/17 05:55 MCHC 33.2 g/dl (32.0-35.9) 07/17/17 05:55 RDW 17.2 % (11.9-15.9) H 07/17/17 05:55 Plt Count 203 K/MM3 (134-434) 07/17/17 05:55 MPV 10.0 fl (7.5-11.1) 07/17/17 05:55 CMP Sodium 149 mmol/L (136-145) H 07/17/17 05:55 Potassium 4.1 mmol/L (3.5-5.1) D 07/17/17 05:55 Chloride 122 mmol/L (98-107) H 07/17/17 05:55 Carbon Dioxide 13 mmol/L (21-32) L 07/17/17 05:55 Anion Gap 14 (8-16) 07/17/17 05:55 BUN 102 mg/dL (7-18) H 07/17/17 05:55 Creatinine 3.7 mg/dL (0.7-1.3) H 07/17/17 05:55 Creat Clearance w eGFR 17.56 (>60) 07/16/17 22:00 Calcium 7.2 mg/dL (8.5-10.1) L 07/17/17 05:55 Total Bilirubin 0.6 mg/dL (0.2-1.0) D 07/16/17 22:00 AST 34 U/L (15-37) 07/16/17 22:00 ALT U/L (12-78) 07/16/17 22:00 Alkaline Phosphatase 49 U/L (45-117) 07/16/17 22:00 Total Protein 5.3 g/dl (6.4-8.2) L 07/16/17 22:00 Albumin 1.9 g/dl (3.4-5.0) L 07/16/17 22:00 CT head X2 as above Plan: 56 y/o man w/ HTN, HL, DM, CKD, HIV on HAART, EF 49.5%, BIBA for SOB. Reportedly had been experiencing worsening SOB & SAMUELS w/ assoc wheezing for several days prior to admission. While in route developed further respiratory distress and in ER had agonal breathing and unresponsive. No pulse noted on stretcher transferand chest compressions were initiated. The Pt was resuscitated per ACLS protocol for approximately 5 minutes according to note, receiving epi x 2, bicarb x 2. Pt was intubated and placed on ventilator and given nebulizers and steroids. Pt admitted to the ICU s/p Cardiac Arrest and respiratory failure. The patient has been on propofol but having myoclonic twitches especially in right foot which have improved with Klonipin Given his history, this was likely myoclonic jerks 2/2 to anoxic brain injury and would not require AEDS Getting ICU care since admission klonipin 1mg twice daily added and subsided Continue Mechanical ventilation, wean as able Spiking fevers, possible central fevers, ID following Decadron further tapered today Initial CT head with cerebral edema noted and loss of balderas white differentiation Repeat CT with cortical sulci more visible and less edema, though evidence of anoxic brain injury in basal ganglia EEG confirmed patient with brain activity, mix of delta and theta, consistent with encephalopathy No significant clinical improvement thus far Family to decide on goals of care, almost 2 weeks without improvement Possibly would require trach, vent, peg vs. compassionate extubation Discussed with resident and daughter who is nurse to be contacted and further determinations to be made Critical Care Time 35 mins
[2017-07-17 10:45] LABS: ACANTHOCYTES 0; ANISOCYTOSIS 0; BURR CELLS 0; CABBOT RINGS 0; HELMET CELLS 0; HOWELL-JOLLY BODIES 0; HYPOCHROMIA 0; MACROCYTOSIS 0; METAMYELOCYTE 1 % (0-2); MICROCYTOSIS 0; MYELOCYTE 0 % (0-2); OVALOCYTE 0; PLATELET ESTIMATE NORMAL; POIKILOCYTOSIS 0; POLYCHROMASIA 0; REACTIVE LYMPHOCYTES 3 % (0-80); SCHISTOCYTES 0; SPHEROCYTE 0; STOMATOCYTE 0; TARGET CELLS 0; TEAR DROP CELLS 0; TOXIC GRANULATION 0
[2017-07-17] MEDS: DEXAMETHASONE SOD PHOSPHATE 4 MG/1 ML VIAL IVPUSH SCH ×2 (10:53→22:05)
[2017-07-17] MEDS: CARVEDILOL 12.5 MG TABLET (FP) PO SCH ×2 (10:55→22:05)
--- NOTE | 2017-07-17 12:41 | PN ---
Teaching Attending Note Name of Resident: Dione Hidalgo ATTENDING PHYSICIAN STATEMENT I saw and evaluated the patient. I reviewed the resident's note and discussed the case with the resident. I agree with the resident's findings and plan as documented. SUBJECTIVE: Patient seen and examined in the ICU. Remains intubated and sedated, tachypneic. Low grade temps. No pressors. No family decisions for GOC. OBJECTIVE: Intake & Output 07/14/17 07/15/17 07/16/17 07/17/17 23:59 23:59 23:59 23:59 Intake Total 2886 3094 2435 1291 Output Total 2900 2300 1700 1100 Balance -14 794 735 191 Weight 209 lb 8 oz 208 lb 9.6 oz 211 lb 212 lb 7 oz Last Vital Signs Temp Pulse Resp BP Pulse Ox 98.5 F 66 23 115/77 99 07/17/17 10:00 07/17/17 12:00 07/17/17 12:12 07/17/17 12:00 07/17/17 10:31 Active Medications Acetaminophen (Tylenol Oral Solution -) 650 mg PO Q6H PRN PRN Reason: FEVER OR PAIN Last Admin: 07/16/17 21:41 Dose: 650 mg Acetaminophen (Ofirmev Injection -) 1,000 mg IVPB Q6H PRN PRN Reason: FEVER OR PAIN Last Admin: 07/16/17 10:13 Dose: 1,000 mg Artificial Tears (Artificial Tears) 1 drop OU BID PRN PRN Reason: DRY EYES Carvedilol (Coreg -) 12.5 mg PO BID [facility] Last Admin: 07/17/17 10:55 Dose: 12.5 mg Dexamethasone Sodium Phosphate (Decadron Injection -) 2 mg IVPUSH BID [facility] Last Admin: 07/17/17 10:53 Dose: 2 mg Heparin Sodium (Porcine) (Heparin -) 5,000 unit SQ TID [facility] Last Admin: 07/17/17 05:18 Dose: 5,000 unit Propofol (Diprivan -) 1,000,000 mcg in 100 mls @ 2.807 mls/hr IVPB TITR [facility]; 5 MCG/KG/MIN PRN Reason: Protocol Last Admin: 07/17/17 06:18 Dose: 45.96 mcg/kg/min, 25.798 mls/hr Pantoprazole Sodium 80 mg/ (Sodium Chloride) 100 mls @ 10 mls/hr IVPB Q10H [facility] PRN Reason: 8 MG/HR Last Admin: 07/17/17 10:56 Dose: 10 mls/hr Midazolam HCl 100 mg/ Sodium (Chloride) 100 mls @ 1 mls/hr IVPB TITR [facility]; 1 MG/ HR PRN Reason: Protocol Last Admin: 07/16/17 10:27 Dose: Not Given Sodium Bicarbonate 50 meq/ (Sodium Chloride) 1,050 mls @ 83 mls/hr IV Q12H [facility] Last Admin: 07/17/17 00:38 Dose: Not Given Insulin Human Regular 100 (units/ Sodium Chloride) 100 mls @ 9.57 mls/hr IVPB TITR [facility]; 0.1 UNITS/KG/HR PRN Reason: Protocol Last Admin: 07/17/17 06:43 Dose: 0.01 units/kg/hr, 1 mls/hr Labetalol HCl (Normodyne Injection -) 10 mg IVPUSH Q4H PRN PRN Reason: HYPERTENSION Last Admin: 07/12/17 14:59 Dose: 10 mg Metoprolol Tartrate (Lopressor Injection -) 5 mg IVPUSH Q4H PRN PRN Reason: HYPERTENSION Last Admin: 07/16/17 10:13 Dose: 5 mg Sodium Bicarbonate (Sodium Bicarbonate -) 650 mg PO TID [facility] Last Admin: 07/17/17 05:18 Dose: 650 mg Gen: intubated, sedated Heart: tachycardic, regular Lung: scattered rhonchi Abd: soft, nontender Ext: + edema Laboratory Results - last 24 hr 07/16/17 07/16/17 07/16/17 05:16 11:53 22:00 WBC 15.5 H RBC 3.71 L Hgb 10.6 L Hct 31.7 L MCV 85.4 MCH 28.5 MCHC 33.3 RDW 17.4 H Plt Count 205 MPV 10.1 Neutrophils % 78.7 Neutrophils % (Manual) Band Neutrophils % Lymphocytes % 11.6 D Lymphocytes % (Manual) Monocytes % 7.4 Monocytes % (Manual) Eosinophils % 1.5 D Basophils % 0.8 D Basophils % (Manual) Myelocytes % (Man) Metamyelocytes Hypochromia Toxic Granulation Dohle Bodies Platelet Estimate Polychromasia Poikilocytosis Basophilic Stippling Anisocytosis Microcytosis Macrocytosis Spherocytes Sickle Cells Target Cells Tear Drop Cells Ovalocytes Stomatocytes Helmet Cells [place] Bodies [place] Rings [place] Cells Acanthocytes (Spur) Fragmented RBCs Schistocytes Sodium Potassium Chloride Carbon Dioxide Anion Gap BUN Creatinine Creat Clearance w eGFR POC Glucometer [phone] > 400 Random Glucose Calcium Phosphorus Magnesium Total Bilirubin AST ALT Alkaline Phosphatase Total Protein Albumin 07/16/17 07/17/17 07/17/17 22:00 05:55 05:55 WBC 16.2 H RBC 3.86 L Hgb 10.9 L Hct 32.7 L MCV 84.8 MCH 28.2 MCHC 33.2 RDW 17.2 H Plt Count 203 MPV 10.0 Neutrophils % No Result Required. Neutrophils % (Manual) 88.7 H Band Neutrophils % 0.0 Lymphocytes % No Result Required. Lymphocytes % (Manual) 4.1 L D Monocytes % Monocytes % (Manual) 2 L Eosinophils % Basophils % Basophils % (Manual) 0.0 Myelocytes % (Man) 0 D Metamyelocytes 1 D Hypochromia 0 Toxic Granulation 0 Dohle Bodies 0 Platelet Estimate Normal Polychromasia 0 Poikilocytosis 0 Basophilic Stippling 0 Anisocytosis 0 Microcytosis 0 Macrocytosis 0 Spherocytes 0 Sickle Cells 0 Target Cells 0 Tear Drop Cells 0 Ovalocytes 0 Stomatocytes 0 Helmet Cells 0 [place] Bodies 0 [place] Rings 0 [place] Cells 0 Acanthocytes (Spur) 0 Fragmented RBCs 0 Schistocytes 0 Sodium 147 H 149 H Potassium 3.3 L D 4.1 D Chloride 119 H 122 H Carbon Dioxide 11 L 13 L Anion Gap 17 H 14 BUN 105 H* 102 H Creatinine 3.6 H 3.7 H Creat Clearance w eGFR 17.56 POC Glucometer Random Glucose 453 H* 249 H D Calcium 7.1 L 7.2 L Phosphorus 6.1 H D Magnesium 2.0 Total Bilirubin 0.6 D AST 34 ALT Alkaline Phosphatase 49 Total Protein 5.3 L Albumin 1.9 L ASSESSMENT AND PLAN: s/p Cardiopulmonary Arrest Likely Anoxic Brain Injury Acute on Chronic Systolic Heart Failure +Troponins Acute on Chronic Renal Failure Lactic Acidosis resolved HTN HIV Hep C Smoker - completed empiric antibiotics - decadron taper - monitor urine output, creatinine - daily sedation vacations to assess mental status - taper FiO2 to keep SpO2 >90% - not a candidate for weaning due to poor mental status - enteral feeds - DVT/GI prophylaxis - poor overall prognosis for meaningful recovery; his daughter previously stated to me that the patient would not want to be kept alive without quality of life Dr Glez Critical care time spent in reviewing chart, evaluating patient and formulating plan 35 min
[2017-07-17] MEDS ORDERED: INSULIN REGULAR 100 UNITS in SODIUM CHLORIDE 99 ML IVPB SCH (14:14)
--- NOTE | 2017-07-17 16:28 | PN ---
Progress Note, Physician History of Present Illness: Pt seen and examined at bedside. He remains in the ICU. Family are still considering GOC. - Current Medication List Current Medications: Active Medications Acetaminophen (Tylenol Oral Solution -) 650 mg PO Q6H PRN PRN Reason: FEVER OR PAIN Last Admin: 07/16/17 21:41 Dose: 650 mg Acetaminophen (Ofirmev Injection -) 1,000 mg IVPB Q6H PRN PRN Reason: FEVER OR PAIN Last Admin: 07/16/17 10:13 Dose: 1,000 mg Artificial Tears (Artificial Tears) 1 drop OU BID PRN PRN Reason: DRY EYES Carvedilol (Coreg -) 12.5 mg PO BID [facility] Last Admin: 07/17/17 10:55 Dose: 12.5 mg Dexamethasone Sodium Phosphate (Decadron Injection -) 2 mg IVPUSH BID [facility] Last Admin: 07/17/17 10:53 Dose: 2 mg Heparin Sodium (Porcine) (Heparin -) 5,000 unit SQ TID [facility] Last Admin: 07/17/17 13:50 Dose: 5,000 unit Propofol (Diprivan -) 1,000,000 mcg in 100 mls @ 2.807 mls/hr IVPB TITR [facility]; 5 MCG/KG/MIN PRN Reason: Protocol Last Admin: 07/17/17 06:18 Dose: 45.96 mcg/kg/min, 25.798 mls/hr Pantoprazole Sodium 80 mg/ (Sodium Chloride) 100 mls @ 10 mls/hr IVPB Q10H [facility] PRN Reason: 8 MG/HR Last Admin: 07/17/17 10:56 Dose: 10 mls/hr Midazolam HCl 100 mg/ Sodium (Chloride) 100 mls @ 1 mls/hr IVPB TITR PAULINE; 1 MG/ HR PRN Reason: Protocol Last Admin: 07/16/17 10:27 Dose: Not Given Sodium Bicarbonate 50 meq/ (Sodium Chloride) 1,050 mls @ 83 mls/hr IV Q12H [facility] Last Admin: 07/17/17 00:38 Dose: Not Given Insulin Aspart (Novolog Vial Sliding Scale -) 1 vial SQ ACHS [facility] PRN Reason: Protocol Insulin Detemir (Levemir Vial) 20 units SQ BID@0700,2200 [facility] Labetalol HCl (Normodyne Injection -) 10 mg IVPUSH Q4H PRN PRN Reason: HYPERTENSION Last Admin: 07/12/17 14:59 Dose: 10 mg Metoprolol Tartrate (Lopressor Injection -) 5 mg IVPUSH Q4H PRN PRN Reason: HYPERTENSION Last Admin: 07/16/17 10:13 Dose: 5 mg Sodium Bicarbonate (Sodium Bicarbonate -) 650 mg PO TID [facility] Last Admin: 07/17/17 13:50 Dose: 650 mg - Objective Vital Signs: Vital Signs Temperature 98.3 F 07/17/17 14:00 Pulse Rate 67 07/17/17 14:00 Respiratory Rate 21 07/17/17 14:19 Blood Pressure 147/73 07/17/17 14:00 O2 Sat by Pulse Oximetry (%) 99 07/17/17 10:31 Constitutional: Yes: Calm Eyes: Yes: Conjunctiva Clear HENT: Yes: Atraumatic Cardiovascular: Yes: S1, S2 Respiratory: Yes: Mechanically Ventilated Gastrointestinal: Yes: Soft Genitourinary: Yes: Rocha Present Musculoskeletal: Yes: Muscle Weakness Edema: No Neurological: Yes: Lethargy Labs: CBC, BMP 07/17/17 05:55 07/17/17 05:55 INR, PTT INR 1.18 (0.82-1.09) H 07/06/17 05:00 - ....Imaging Chest X-ray: Report Reviewed Problem List - Problems (1) FLORECITA (acute kidney injury) Code(s): N17.9 - ACUTE KIDNEY FAILURE, UNSPECIFIED (2) CHF (congestive heart failure) Code(s): I50.9 - HEART FAILURE, UNSPECIFIED Qualifiers: Congestive heart failure type: unspecified congestive heart failure type Congestive heart failure chronicity: unspecified congestive heart failure chronicity Qualified Code(s): I50.9 - Heart failure, unspecified (3) Cardiopulmonary arrest with successful resuscitation Code(s): I46.9 - CARDIAC ARREST, CAUSE UNSPECIFIED (4) Chronic kidney disease Code(s): N18.9 - CHRONIC KIDNEY DISEASE, UNSPECIFIED (5) Hypertension Code(s): I10 - ESSENTIAL (PRIMARY) HYPERTENSION (6) Chronic kidney disease Code(s): N18.9 - CHRONIC KIDNEY DISEASE, UNSPECIFIED Assessment/Plan Current Medications Generic Name Dose Route Start Last Admin Trade Name Freq PRN Reason Stop Dose Admin Acetaminophen 650 mg 07/14/17 16:02 12/07/17 21:41 Tylenol Oral Solution - PO 650 mg Q6H PRN Administration FEVER OR PAIN Acetaminophen 1,000 mg 07/15/17 22:23 07/16/17 10:13 Ofirmev Injection - IVPB 1,000 mg Q6H PRN Administration FEVER OR PAIN Artificial Tears 1 drop 07/12/17 15:20 Artificial Tears OU BID PRN DRY EYES Carvedilol 12.5 mg 07/16/17 11:13 07/17/17 10:55 Coreg - PO 12.5 mg BID [facility] Administration Dexamethasone Sodium Phosphate 2 mg 07/17/17 09:15 07/17/17 10:53 Decadron Injection - IVPUSH 2 mg BID [facility] Administration Heparin Sodium (Porcine) 5,000 unit 07/08/17 15:30 07/17/17 13:50 Heparin - SQ 5,000 unit TID [facility] Administration Propofol 1,000,000 mcg in 100 mls @ 2.807 mls/hr 07/10/17 14:00 07/17/17 06: 18 Diprivan - IVPB 45.96 mcg/kg/min TITR [facility] 25.798 mls/hr Protocol Administration 5 MCG/KG/MIN Pantoprazole Sodium 80 mg/ 100 mls @ 10 mls/hr 07/10/17 19:15 07/17/17 10:56 Sodium Chloride IVPB 10 mls/hr Q10H [facility] Administration 8 MG/HR Midazolam HCl 100 mg/ Sodium 100 mls @ 1 mls/hr 07/16/17 09:30 07/16/17 10:27 Chloride IVPB Not Given TITR [facility] Protocol 1 MG/HR Sodium Bicarbonate 50 meq/ 1,050 mls @ 83 mls/hr 07/16/17 12:02 07/17/17 00: 38 Sodium Chloride IV Not Given Q12H [facility] Insulin Aspart 1 vial 07/17/17 16:30 Novolog Vial Sliding Scale - SQ ACHS [facility] Protocol Insulin Detemir 20 units 07/17/17 22:00 Levemir Vial SQ BID@0700,2200 [facility] Labetalol HCl 10 mg 07/09/17 11:12 07/12/17 14:59 Normodyne Injection - IVPUSH 10 mg Q4H PRN Administration HYPERTENSION Metoprolol Tartrate 5 mg 07/10/17 21:59 07/16/17 10:13 Lopressor Injection - IVPUSH 5 mg Q4H PRN Administration HYPERTENSION Sodium Bicarbonate 650 mg 07/15/17 14:00 07/17/17 13:50 Sodium Bicarbonate - PO 650 mg TID [facility] Administration Impression 1. FLORECITA 2. CKD 3. cardiac arrest 4. CHF 5. HIV 6. hypomagnesemia 7. anoxic brain injury 8. anemia 9. hyperglycemia 10. HTN 11. acidosis Plan - feeds were held - add free water via NGT - repeat labs in am - monitor renal function - cont with fluids - BP is improving - vent support - likely ATN from hypotension during arrest, cont to monitor for recovery - cont to monitor urine output
--- NOTE | 2017-07-17 17:06 | PN ---
Physical Exam: SUBJECTIVE: Patient seen and examined at bedside. 24 hr events -Tmax 101 F 2/2 central fevers -palliative consult- family still deciding GOC Today -Decadron has been tapered to 2mg IV BID, tomorrow to be d/c -Central line for removal today -IV meds switched to peripheral lines -pt has been off abx OBJECTIVE: -Central line- 07/05- for removal today - protonix gtt - sodium bicarb gtt - insulin gtt - propofol gtt - currently has 3 peripheral lines- upper extremities Vital Signs Period Temp Pulse Resp BP Sys/[place] Pulse Ox Last 24 Hr 98.3 F-100.4 F 59-84 13-32 92-184/51-81 98-100 GENERAL: The patient is sedated, vented HEAD: Normal with no signs of trauma. EYES: PERRL, extraocular movements intact, sclera anicteric, conjunctiva clear. NECK: Trachea midline, supple. LUNGS: coarse breath sounds appreciated b/l HEART: Regular rate and rhythm, S1, S2 without murmur, rub or gallop. ABDOMEN: Soft, nontender, nondistended, normoactive bowel sounds EXTREMITIES: 2+ dorsalis pedis pulses, 1+ pitting edema b/l NEUROLOGICAL: unable to assess as pt sedated Laboratory Results - last 24 hr 07/16/17 07/16/17 07/16/17 05:16 11:53 22:00 WBC 15.5 H RBC 3.71 L Hgb 10.6 L Hct 31.7 L MCV 85.4 MCH 28.5 MCHC 33.3 RDW 17.4 H Plt Count 205 MPV 10.1 Neutrophils % 78.7 Neutrophils % (Manual) Band Neutrophils % Lymphocytes % 11.6 D Lymphocytes % (Manual) Monocytes % 7.4 Monocytes % (Manual) Eosinophils % 1.5 D Basophils % 0.8 D Basophils % (Manual) Myelocytes % (Man) Metamyelocytes Hypochromia Toxic Granulation Dohle Bodies Platelet Estimate Polychromasia Poikilocytosis Basophilic Stippling Anisocytosis Microcytosis Macrocytosis Spherocytes Sickle Cells Target Cells Tear Drop Cells Ovalocytes Stomatocytes Helmet Cells [place] Bodies [place] Rings [place] Cells Acanthocytes (Spur) Fragmented RBCs Schistocytes Sodium Potassium Chloride Carbon Dioxide Anion Gap BUN Creatinine Creat Clearance w eGFR POC Glucometer [phone] > 400 Random Glucose Calcium Phosphorus Magnesium Total Bilirubin AST ALT Alkaline Phosphatase Total Protein Albumin 07/16/17 07/17/17 07/17/17 22:00 05:55 05:55 WBC 16.2 H RBC 3.86 L Hgb 10.9 L Hct 32.7 L MCV 84.8 MCH 28.2 MCHC 33.2 RDW 17.2 H Plt Count 203 MPV 10.0 Neutrophils % No Result Required. Neutrophils % (Manual) 88.7 H Band Neutrophils % 0.0 Lymphocytes % No Result Required. Lymphocytes % (Manual) 4.1 L D Monocytes % Monocytes % (Manual) 2 L Eosinophils % Basophils % Basophils % (Manual) 0.0 Myelocytes % (Man) 0 D Metamyelocytes 1 D Hypochromia 0 Toxic Granulation 0 Dohle Bodies 0 Platelet Estimate Normal Polychromasia 0 Poikilocytosis 0 Basophilic Stippling 0 Anisocytosis 0 Microcytosis 0 Macrocytosis 0 Spherocytes 0 Sickle Cells 0 Target Cells 0 Tear Drop Cells 0 Ovalocytes 0 Stomatocytes 0 Helmet Cells 0 [place] Bodies 0 [place] Rings 0 [place] Cells 0 Acanthocytes (Spur) 0 Fragmented RBCs 0 Schistocytes 0 Sodium 147 H 149 H Potassium 3.3 L D 4.1 D Chloride 119 H 122 H Carbon Dioxide 11 L 13 L Anion Gap 17 H 14 BUN 105 H* 102 H Creatinine 3.6 H 3.7 H Creat Clearance w eGFR 17.56 POC Glucometer Random Glucose 453 H* 249 H D Calcium 7.1 L 7.2 L Phosphorus 6.1 H D Magnesium 2.0 Total Bilirubin 0.6 D AST 34 ALT Alkaline Phosphatase 49 Total Protein 5.3 L Albumin 1.9 L Active Medications Generic Name Dose Route Start Last Admin Trade Name Freq PRN Reason Stop Dose Admin Acetaminophen 650 mg 07/14/17 16:02 07/16/17 21:41 Tylenol Oral Solution - PO 650 mg Q6H PRN Administration FEVER OR PAIN Acetaminophen 1,000 mg 07/15/17 22:23 07/16/17 10:13 Ofirmev Injection - IVPB 1,000 mg Q6H PRN Administration FEVER OR PAIN Artificial Tears 1 drop 07/12/17 15:20 Artificial Tears OU BID PRN DRY EYES Carvedilol 12.5 mg 07/16/17 11:13 07/17/17 10:55 Coreg - PO 12.5 mg BID PAULINE Administration Dexamethasone Sodium Phosphate 2 mg 07/17/17 09:15 07/17/17 10:53 Decadron Injection - IVPUSH 2 mg BID PAULINE Administration Heparin Sodium (Porcine) 5,000 unit 07/08/17 15:30 07/17/17 13:50 Heparin - SQ 5,000 unit TID PAULINE Administration Propofol 1,000,000 mcg in 100 mls @ 2.807 mls/hr 07/10/17 14:00 07/17/17 06: 18 Diprivan - IVPB 45.96 mcg/kg/min TITR PAULINE 25.798 mls/hr Protocol Administration 5 MCG/KG/MIN Pantoprazole Sodium 80 mg/ 100 mls @ 10 mls/hr 07/10/17 19:15 07/17/17 10:56 Sodium Chloride IVPB 10 mls/hr Q10H PAULINE Administration 8 MG/HR Midazolam HCl 100 mg/ Sodium 100 mls @ 1 mls/hr 07/16/17 09:30 07/16/17 10:27 Chloride IVPB Not Given TITR PAULINE Protocol 1 MG/HR Sodium Bicarbonate 50 meq/ 1,050 mls @ 83 mls/hr 07/16/17 12:02 07/17/17 00: 38 Sodium Chloride IV Not Given Q12H PAULINE Insulin Aspart 1 vial 07/17/17 16:30 Novolog Vial Sliding Scale - SQ ACHS [facility] Protocol Insulin Detemir 20 units 07/17/17 22:00 Levemir Vial SQ BID@0700,2200 [facility] Labetalol HCl 10 mg 07/09/17 11:12 07/12/17 14:59 Normodyne Injection - IVPUSH 10 mg Q4H PRN Administration HYPERTENSION Metoprolol Tartrate 5 mg 07/10/17 21:59 07/16/17 10:13 Lopressor Injection - IVPUSH 5 mg Q4H PRN Administration HYPERTENSION Sodium Bicarbonate 650 mg 07/15/17 14:00 07/17/17 13:50 Sodium Bicarbonate - PO 650 mg TID PAULINE Administration ASSESSMENT/PLAN: Pt is a 56 M w/ PMH HTN, HL, DM, CKD, and HIV on HAART who presented to ED with cardiopulmonary arrest. Pt is now intubated and sedated. Prior to arriving at the ED, pt had been complaining of wheezing and SOB. On arrival to ED, pt was in arrest and coded for five minutes. Pt currently being managed in ICU. CARDIO #s/p Cardiopulmonary arrest -pt coded in ED for >5 min -intubated, on vent -Echo: moderate-severe LV dysfunction #HTN-better controlled Currently on: - Coreg 6.25 mg PO BID - Labetalol 10mg IVP q4h PRN - Lopressor 5mg IVP q4h PRN - regimen has been changed NEURO -Anoxic brain injury most likely 2/2 arrest -Head CT: loss of balderas/white junction, sulcal effacement, w/o signs of herniation -Continue Decadron taper for decompression. Currently 2mg IVP BID. Tomorrow will be d/c. -Abnormal EEG -sedation vacations to assess mental status- however has not been tolerating #ID -HIV positive -pt sees Dr. Vital as outpatient -HIV meds on hold for now -abx have been stopped as fever most likely central NEPHRO -has been started on PO bicarb 650 mg PO TID -elevated BUN may be 2/2 to steroids -worsening renal fnc -possible ATN 2/2 arrest -hx CKD -Continue to monitor BMP, UO #DKA most likely 2/2 insulin resistance s/p cardiac arrest -sugars better controlled today in 200's -parameters for insulin gtt in chart -continue to monitor BMP, BGM #metabolic acidosis -Continue PO sodium bicarb 650 mg PO TID -Continue sodium bicarb gtt -most likely not a candidate for dialysis ENDOCRINE #DM -ISS -BGM PALLIATIVE -family still discussing GOC. Will f/u #F/E/N Will monitor electrolytes tube feeds have been restarted #PPx -Hep SubQ BID -Protonix gtt #Dispo Continued ICU management, unfortunately poor prognosis. Visit type - Emergency Visit Emergency Visit: No - New Patient This patient is new to me today: No - Critical Care Critical Care patient: Yes Total Critical Care Time (in minutes): 32 Critical Care Statement: The care of this patient involved high complexity decision making to prevent further life threatening deterioration of the patient 's condition and/or to evaluate & treat vital organ system(s) failure or risk of failure.
[2017-07-17] MEDS: INSULIN SLIDING SCALE (NOVOLOG) 1 VIAL SQ SCH ×2 (17:41→22:24)
--- NOTE | 2017-07-17 18:18 | PN ---
Progress Note, Physician History of Present Illness: Pt remains intubated Pt w/ poor prognosis - Current Medication List Current Medications: Active Medications Acetaminophen (Tylenol Oral Solution -) 650 mg PO Q6H PRN PRN Reason: FEVER OR PAIN Last Admin: 07/16/17 21:41 Dose: 650 mg Acetaminophen (Ofirmev Injection -) 1,000 mg IVPB Q6H PRN PRN Reason: FEVER OR PAIN Last Admin: 07/16/17 10:13 Dose: 1,000 mg Artificial Tears (Artificial Tears) 1 drop OU BID PRN PRN Reason: DRY EYES Carvedilol (Coreg -) 12.5 mg PO BID [facility] Last Admin: 07/17/17 10:55 Dose: 12.5 mg Dexamethasone Sodium Phosphate (Decadron Injection -) 2 mg IVPUSH BID [facility] Last Admin: 07/17/17 10:53 Dose: 2 mg Heparin Sodium (Porcine) (Heparin -) 5,000 unit SQ TID [facility] Last Admin: 07/17/17 13:50 Dose: 5,000 unit Propofol (Diprivan -) 1,000,000 mcg in 100 mls @ 2.807 mls/hr IVPB TITR PAULINE; 5 MCG/KG/MIN PRN Reason: Protocol Last Admin: 07/17/17 06:18 Dose: 45.96 mcg/kg/min, 25.798 mls/hr Pantoprazole Sodium 80 mg/ (Sodium Chloride) 100 mls @ 10 mls/hr IVPB Q10H PAULINE PRN Reason: 8 MG/HR Last Admin: 07/17/17 10:56 Dose: 10 mls/hr Midazolam HCl 100 mg/ Sodium (Chloride) 100 mls @ 1 mls/hr IVPB TITR PAULINE; 1 MG/ HR PRN Reason: Protocol Last Admin: 07/16/17 10:27 Dose: Not Given Sodium Bicarbonate 50 meq/ (Sodium Chloride) 1,050 mls @ 83 mls/hr IV Q12H [facility] Last Admin: 07/17/17 00:38 Dose: Not Given Insulin Aspart (Novolog Vial Sliding Scale -) 1 vial SQ ACHS PAULINE PRN Reason: Protocol Last Admin: 07/17/17 17:41 Dose: 6 units Insulin Detemir (Levemir Vial) 20 units SQ BID@0700,2200 [facility] Labetalol HCl (Normodyne Injection -) 10 mg IVPUSH Q4H PRN PRN Reason: HYPERTENSION Last Admin: 07/12/17 14:59 Dose: 10 mg Metoprolol Tartrate (Lopressor Injection -) 5 mg IVPUSH Q4H PRN PRN Reason: HYPERTENSION Last Admin: 07/16/17 10:13 Dose: 5 mg Sodium Bicarbonate (Sodium Bicarbonate -) 650 mg PO TID PAULINE Last Admin: 07/17/17 13:50 Dose: 650 mg - Objective Vital Signs: Vital Signs Temperature 98.3 F 07/17/17 14:00 Pulse Rate 84 07/17/17 16:00 Respiratory Rate 24 07/17/17 16:00 Blood Pressure 174/91 07/17/17 16:00 O2 Sat by Pulse Oximetry (%) 99 07/17/17 10:31 HENT: Yes: Other ((+) ETT) Cardiovascular: Yes: WNL, Regular Rate and Rhythm Respiratory: Yes: Diminished Gastrointestinal: Yes: WNL, Normal Bowel Sounds, Soft Labs: CBC, BMP 07/17/17 05:55 07/17/17 05:55 INR, PTT INR 1.18 (0.82-1.09) H 07/06/17 05:00 Problem List - Problems (1) Respiratory failure Code(s): J96.90 - RESPIRATORY FAILURE, UNSP, UNSP W HYPOXIA OR HYPERCAPNIA (2) Cardiopulmonary arrest with successful resuscitation Code(s): I46.9 - CARDIAC ARREST, CAUSE UNSPECIFIED (3) Uncontrolled diabetes mellitus Code(s): E11.65 - TYPE 2 DIABETES MELLITUS WITH HYPERGLYCEMIA (4) Acute on chronic diastolic CHF (congestive heart failure) Code(s): I50.33 - ACUTE ON CHRONIC DIASTOLIC (CONGESTIVE) HEART FAILURE
--- NOTE | 2017-07-17 20:04 | PN ---
Progress Note (short form) - Note Progress Note: CC: SOB/cardiac arrest. s: remains intubated/sedated, no overnight events Current Medications Acetaminophen (Tylenol Oral Solution -) 650 mg PO Q6H PRN PRN Reason: FEVER OR PAIN Last Admin: 07/16/17 21:41 Dose: 650 mg Acetaminophen (Ofirmev Injection -) 1,000 mg IVPB Q6H PRN PRN Reason: FEVER OR PAIN Last Admin: 07/16/17 10:13 Dose: 1,000 mg Artificial Tears (Artificial Tears) 1 drop OU BID PRN PRN Reason: DRY EYES Carvedilol (Coreg -) 12.5 mg PO BID PAULINE Last Admin: 07/17/17 10:55 Dose: 12.5 mg Dexamethasone Sodium Phosphate (Decadron Injection -) 2 mg IVPUSH BID [facility] Last Admin: 07/17/17 10:53 Dose: 2 mg Heparin Sodium (Porcine) (Heparin -) 5,000 unit SQ TID [facility] Last Admin: 07/17/17 13:50 Dose: 5,000 unit Propofol (Diprivan -) 1,000,000 mcg in 100 mls @ 2.807 mls/hr IVPB TITR PAULINE; 5 MCG/KG/MIN PRN Reason: Protocol Last Admin: 07/17/17 06:18 Dose: 45.96 mcg/kg/min, 25.798 mls/hr Pantoprazole Sodium 80 mg/ (Sodium Chloride) 100 mls @ 10 mls/hr IVPB Q10H PAULINE PRN Reason: 8 MG/HR Last Admin: 07/17/17 10:56 Dose: 10 mls/hr Midazolam HCl 100 mg/ Sodium (Chloride) 100 mls @ 1 mls/hr IVPB TITR PAULINE; 1 MG/ HR PRN Reason: Protocol Last Admin: 07/16/17 10:27 Dose: Not Given Sodium Bicarbonate 50 meq/ (Sodium Chloride) 1,050 mls @ 83 mls/hr IV Q12H PAULINE Last Admin: 07/17/17 00:38 Dose: Not Given Insulin Aspart (Novolog Vial Sliding Scale -) 1 vial SQ ACHS PAULINE PRN Reason: Protocol Last Admin: 07/17/17 17:41 Dose: 6 units Insulin Detemir (Levemir Vial) 20 units SQ BID@0700,2200 [facility] Labetalol HCl (Normodyne Injection -) 10 mg IVPUSH Q4H PRN PRN Reason: HYPERTENSION Last Admin: 07/12/17 14:59 Dose: 10 mg Metoprolol Tartrate (Lopressor Injection -) 5 mg IVPUSH Q4H PRN PRN Reason: HYPERTENSION Last Admin: 07/16/17 10:13 Dose: 5 mg Sodium Bicarbonate (Sodium Bicarbonate -) 650 mg PO TID PAULINE Last Admin: 07/17/17 13:50 Dose: 650 mg Vital Signs - 24 hr 07/16/17 07/16/17 07/16/17 21:00 21:10 22:00 Temperature Pulse Rate 71 Respiratory 26 H 26 H 24 Rate Blood Pressure 161/79 O2 Sat by Pulse 100 100 Oximetry (%) 07/16/17 07/17/17 07/17/17 23:59 00:00 02:00 Temperature 100.4 F H Pulse Rate 75 70 68 Respiratory 30 H 13 25 H Rate Blood Pressure 100/51 92/57 O2 Sat by Pulse 100 Oximetry (%) 07/17/17 07/17/17 07/17/17 03:22 04:00 06:00 Temperature 99.4 F Pulse Rate 69 63 Respiratory 22 20 20 Rate Blood Pressure 97/56 126/78 O2 Sat by Pulse Oximetry (%) 07/17/17 07/17/17 07/17/17 06:27 08:00 09:00 Temperature Pulse Rate 66 Respiratory 22 21 24 Rate Blood Pressure 141/62 O2 Sat by Pulse 100 Oximetry (%) 07/17/17 07/17/17 07/17/17 09:25 09:30 10:00 Temperature 98.5 F Pulse Rate 66 Respiratory 21 24 Rate Blood Pressure 152/63 O2 Sat by Pulse 98 Oximetry (%) 07/17/17 07/17/17 07/17/17 10:31 12:00 12:12 Temperature Pulse Rate 59 L 66 Respiratory 24 23 Rate Blood Pressure 115/77 O2 Sat by Pulse 99 Oximetry (%) 07/17/17 07/17/17 07/17/17 14:00 14:19 16:00 Temperature 98.3 F Pulse Rate 67 84 Respiratory 24 21 24 Rate Blood Pressure 147/73 174/91 O2 Sat by Pulse Oximetry (%) 07/17/17 07/17/17 07/17/17 16:15 18:00 18:57 Temperature 98.0 F Pulse Rate 110 H Respiratory 24 24 19 Rate Blood Pressure 114/61 O2 Sat by Pulse Oximetry (%) Intake & Output 07/15/17 07/16/17 07/17/17 07/18/17 07:59 07:59 07:59 07:59 Intake Total 2674 2992 2506 429 Output Total 2300 2300 2500 900 Balance 374 692 6 -471 Weight 208 lb 9.6 oz 211 lb 212 lb 7 oz Constitutional: Yes: Well Nourished, No Distress, intubated, sedated. Eyes: No: Sclera Icterus Respiratory: Yes: mechanical breath sounds (anteriorly (pt intubated)). No: Accessory Muscle Use, Rales, Wheezes Gastrointestinal: Yes: Normal Bowel Sounds. No: Distention, Hepatomegaly, Palpable Mass, Tenderness Cardiovascular: Yes: tachcyardic, Regular Rate and Rhythm JVD: No Heart Sounds: Yes: S1, S2. No: Gallop Murmur: No: Systolic Murmur, Diastolic Murmurs) Extremities: No: Cool (feet), Cyanosis Edema: No Integumentary: No: Jaundice Neurological: No: sedated Psychiatric: No: Agitated - Other Data Labs, Other Data: CBC, BMP 07/17/17 05:55 07/17/17 05:55 tele: sr, pvc's. rare couplets, triplets EKG 07/07: sinus tach with pvc's. new difufes TWI. worse in precordial leads. prolonged qtc. cxr 07/16: no chf ECG #1: sinus tach, normal axis, +/- long QT (mild); no pathol q waves; borderline ischemic appearing ST depressions inferior leads and V6 (no old but this was not reported on 12/24 office ecg) #2: NSR, STs resolving ECG 07/07: MPI 05/26: no ischemia, EF 33% (global echo 06/2017: nl lv size. LV fn mod-sev reduced (global). nl rv size/fn. 1+ mac/mr/tr. rvsp 30-40. + pleural effusion. Echo 05/26 (): mod LVE, mild global LV hypo; nl RV; mild LAE; mild MR Echo 12/24: nl LV and RV, nl valves est cct 35 mins a/p: 56 yo smoker with h/o mild lv dysfunction, htn, hl, ckd, hiv, dm p/w progressive sob and subsequent PEA arrest with EMS (s/p resuscitation). acute hypoxic resp failure, acute on chronic syst CHF, NSTEMI, cardiac arrest ( PEA): -initially with marked chf on cxr in setting of several days of worsening sob -suspect PEA due to severe chf decompensation with acute hypoxia -suspected anoxic brain injury now, neuro following -cxr w/o chf, no clinical chf, did not respond to brief trial of lasix gtt -resting echo 05/26 with mild LV dysfunction, ? echo overestimaged EF (nuclear estimated EF 33%) -NSTEMI trop trend here with peak 1.3 ([id number] pattern) -ECG initially here with borderline ST changes for ischemia (likely secondary) -? underlying CAD with balanced ischemia on nuclear. -repeat echo here with worsened systolic function. (consider invasive ischemia eval (cath) if he were to make meaningful recovery.) -cont beta blockade -no NORRIS/ARB given profound FLORECITA -remains without suspected volume/chf--no diuresis for now -per critical care, may need trach vs compassionate wean from vent FLORECITA on CKD: -baseline creat here 2.8 in 05/26. initially 2.4 on presentation to ER, up to 6s here, improved to 3s but now now trending up again -suspect hypoperfusion/atn as cause -holding lasix -renal following HTN: -07/16 bp elevated at times, increase coreg to 12.5 bid - 07/17: bp labile today on higher dose of coreg. will con't to monitor. HIV/Hep C: -per ID team anemia, gib: -likely ugib -hgb improved s/p prbcs, remains stable
[2017-07-17] MEDS: INSULIN DETEMIR 100 UNITS/ML MDV SQ SCH (22:16)
[2017-07-18] MEDS: LABETALOL HCL 5 MG/1 ML (100MG/20 ML VIAL) IVPUSH PRN ×2 (00:19→06:28)
[2017-07-18] MEDS: ACETAMINOPHEN 1000 MG/100 ML VIAL (NON FORMULARY) IVPB PRN (00:23)
[2017-07-18] MEDS: SODIUM BICARBONATE 8.4% - 50 MEQ in SODIUM CHLORIDE 0.45% 1,000 ML IV SCH (00:55)
[2017-07-18] MEDS ORDERED: HEMOQUE TEST 1 EACH EACH ONE (05:46)
[2017-07-18] MEDS: SODIUM BICARBONATE 650 MG TABLET PO SCH ×3 (06:15→22:16)
[2017-07-18] MEDS: HEPARIN NA (PORCINE) 5,000 UNITS/ML 1ML VIAL SQ SCH ×3 (06:15→22:16)
[2017-07-18] MEDS: INSULIN DETEMIR 100 UNITS/ML MDV SQ SCH ×2 (06:15→22:00)
[2017-07-18 06:16] LABS: BASO % 0.3 % (0-2.0); EOS % 2.1 % (0-4.5); MCH 27.8 pg (25.7-33.7); MCHC 32.9 g/dl (32.0-35.9); MEAN CELL VOLUME 84.4 fl (80-96); NEUT % 78.3 % (42.8-82.8); PLATELET COUNT 162 K/MM3 (134-434); RDW 17.8 % (11.9-15.9); WHITE BLOOD COUNT 20.2 K/mm3 (4.0-10.0)
[2017-07-18] MEDS: INSULIN SLIDING SCALE (NOVOLOG) 1 VIAL SQ SCH ×4 (06:16→22:32)
[2017-07-18 06:45] LABS: ANION GAP 14 (8-16); CALCIUM 7.5 mg/dL (8.5-10.1); CO2 16 mmol/L (21-32); CREATININE 3.1 mg/dL (0.7-1.3); GLUCOSE,RANDOM 199 mg/dL (74-106); MAGNESIUM 1.7 mg/dL (1.8-2.4); PHOSPHOROUS 6.7 mg/dL (2.5-4.9)
[2017-07-18] MEDS: PROPOFOL 1,000,000 MCG/100 ML VIAL IVPB SCH (09:55)
--- NOTE | 2017-07-18 11:06 | PN ---
Progress Note (short form) - Note Progress Note: PULMONARY/CCM Pt seen and examined in the ICU. Remains intubated, sedated. Fevers down. Last Vital Signs Temp Pulse Resp BP Pulse Ox 99.8 F H 85 27 H 190/92 100 07/17/17 22:00 07/18/17 08:00 07/18/17 09:16 07/18/17 08:00 07/18/17 09:00 Intake & Output 07/15/17 07/16/17 07/17/17 07/18/17 23:59 23:59 23:59 23:59 Intake Total 3094 2435 1720 1364 Output Total 2300 1700 3000 500 Balance 794 735 -1280 864 Weight 208 lb 9.6 oz 211 lb 212 lb 7 oz 215 lb 9.793 oz Gen: intubated, sedated, tachypneic Heart: RRR Lung: scattered rhonchi Abd: soft, nontender Ext: + edema CBC, BMP 07/18/17 05:05 07/18/17 05:05 Active Medications Acetaminophen (Tylenol Oral Solution -) 650 mg PO Q6H PRN PRN Reason: FEVER OR PAIN Last Admin: 07/16/17 21:41 Dose: 650 mg Artificial Tears (Artificial Tears) 1 drop OU BID PRN PRN Reason: DRY EYES Carvedilol (Coreg -) 12.5 mg PO BID [facility] Last Admin: 07/17/17 22:05 Dose: 12.5 mg Dexamethasone Sodium Phosphate (Decadron Injection -) 2 mg IVPUSH BID [facility] Last Admin: 07/17/17 22:05 Dose: 2 mg Heparin Sodium (Porcine) (Heparin -) 5,000 unit SQ TID [facility] Last Admin: 07/18/17 06:15 Dose: 5,000 unit Propofol (Diprivan -) 1,000,000 mcg in 100 mls @ 2.807 mls/hr IVPB TITR PAULINE; 5 MCG/KG/MIN PRN Reason: Protocol Last Admin: 07/17/17 22:05 Dose: 45.96 mcg/kg/min, 25.798 mls/hr Pantoprazole Sodium 80 mg/ (Sodium Chloride) 100 mls @ 10 mls/hr IVPB Q10H PAULINE PRN Reason: 8 MG/HR Last Admin: 07/17/17 22:07 Dose: 10 mls/hr Midazolam HCl 100 mg/ Sodium (Chloride) 100 mls @ 1 mls/hr IVPB TITR PAULINE; 1 MG/ HR PRN Reason: Protocol Last Admin: 07/16/17 10:27 Dose: Not Given Sodium Bicarbonate 50 meq/ (Sodium Chloride) 1,050 mls @ 83 mls/hr IV Q12H [facility] Last Admin: 07/18/17 00:55 Dose: 83 mls/hr Insulin Aspart (Novolog Vial Sliding Scale -) 1 vial SQ ACHS PAULINE PRN Reason: Protocol Last Admin: 07/18/17 06:16 Dose: 2 units Insulin Detemir (Levemir Vial) 20 units SQ BID@0700,2200 [facility] Last Admin: 07/18/17 06:15 Dose: 20 units Labetalol HCl (Normodyne Injection -) 10 mg IVPUSH Q4H PRN PRN Reason: HYPERTENSION Last Admin: 07/18/17 06:28 Dose: 10 mg Metoprolol Tartrate (Lopressor Injection -) 5 mg IVPUSH Q4H PRN PRN Reason: HYPERTENSION Last Admin: 07/16/17 10:13 Dose: 5 mg Sodium Bicarbonate (Sodium Bicarbonate -) 650 mg PO TID [facility] Last Admin: 07/18/17 06:15 Dose: 650 mg A/P s/p Cardiopulmonary Arrest Likely Anoxic Brain Injury Acute on Chronic Systolic Heart Failure +Troponins Acute on Chronic Renal Failure Lactic Acidosis resolved HTN HIV Hep C Smoker - completed empiric antibiotics - decrease decadron - monitor urine output, creatinine - daily sedation vacations to assess mental status - taper FiO2 to keep SpO2 >90% - not a candidate for weaning due to poor mental status - enteral feeds - DVT/GI prophylaxis - poor overall prognosis for meaningful recovery, had discussed with daughter, she had stated that pt would not want to be kept alive without quality of life, awaiting decision from family critical care time spent in reviewing chart, evaluating patient and formulating plan 35 min
[2017-07-18] MEDS: DEXAMETHASONE SOD PHOSPHATE 4 MG/1 ML VIAL IVPUSH SCH ×2 (11:17→22:16)
[2017-07-18] MEDS: CARVEDILOL 12.5 MG TABLET (FP) PO SCH (11:19)
[2017-07-18] MEDS: PANTOPRAZOLE SODIUM 80 MG in SODIUM CHLORIDE 100 ML IVPB SCH ×2 (14:00→22:17)
--- NOTE | 2017-07-18 14:57 | PN ---
Progress Note (short form) - Note Progress Note: CC: SOB/cardiac arrest. s: remains intubated/sedated, no overnight events. last fever 07/16. Bandemia resolved. no more drops in sbp, but bp running high. required IV labetolol this am. yesterday abdomen distended --> axr unremarkable. Today cxr showed that ng tube placement slightly high, otherwise no change in pulmonary findings. Hypernatremia worsening, but bun/cr continues to improve. Current Medications Acetaminophen (Tylenol Oral Solution -) 650 mg PO Q6H PRN PRN Reason: FEVER OR PAIN Last Admin: 07/16/17 21:41 Dose: 650 mg Artificial Tears (Artificial Tears) 1 drop OU BID PRN PRN Reason: DRY EYES Carvedilol (Coreg -) 12.5 mg PO BID [facility] Last Admin: 07/18/17 11:19 Dose: 12.5 mg Dexamethasone Sodium Phosphate (Decadron Injection -) 2 mg IVPUSH BID [facility] Last Admin: 07/18/17 11:17 Dose: 2 mg Heparin Sodium (Porcine) (Heparin -) 5,000 unit SQ TID [facility] Last Admin: 07/18/17 06:15 Dose: 5,000 unit Propofol (Diprivan -) 1,000,000 mcg in 100 mls @ 2.807 mls/hr IVPB TITR [facility]; 5 MCG/KG/MIN PRN Reason: Protocol Last Admin: 07/17/17 22:05 Dose: 45.96 mcg/kg/min, 25.798 mls/hr Pantoprazole Sodium 80 mg/ (Sodium Chloride) 100 mls @ 10 mls/hr IVPB Q10H [facility] PRN Reason: 8 MG/HR Last Admin: 07/17/17 22:07 Dose: 10 mls/hr Midazolam HCl 100 mg/ Sodium (Chloride) 100 mls @ 1 mls/hr IVPB TITR [facility]; 1 MG/ HR PRN Reason: Protocol Last Admin: 07/16/17 10:27 Dose: Not Given Sodium Bicarbonate 50 meq/ (Sodium Chloride) 1,050 mls @ 83 mls/hr IV Q12H [facility] Last Admin: 07/18/17 00:55 Dose: 83 mls/hr Insulin Aspart (Novolog Vial Sliding Scale -) 1 vial SQ ACHS [facility] PRN Reason: Protocol Last Admin: 07/18/17 06:16 Dose: 2 units Insulin Detemir (Levemir Vial) 20 units SQ BID@0700,2200 [facility] Last Admin: 07/18/17 06:15 Dose: 20 units Labetalol HCl (Normodyne Injection -) 10 mg IVPUSH Q4H PRN PRN Reason: HYPERTENSION Last Admin: 07/18/17 06:28 Dose: 10 mg Metoprolol Tartrate (Lopressor Injection -) 5 mg IVPUSH Q4H PRN PRN Reason: HYPERTENSION Last Admin: 07/16/17 10:13 Dose: 5 mg Sodium Bicarbonate (Sodium Bicarbonate -) 650 mg PO TID [facility] Last Admin: 07/18/17 06:15 Dose: 650 mg Vital Signs - 24 hr 07/17/17 07/17/17 07/17/17 16:00 16:15 18:00 Temperature 98.0 F Pulse Rate 84 110 H Respiratory 24 24 24 Rate Blood Pressure 174/91 114/61 O2 Sat by Pulse Oximetry (%) 07/17/17 07/17/17 07/17/17 18:57 20:44 21:00 Temperature Pulse Rate 77 Respiratory 19 21 Rate Blood Pressure 142/73 O2 Sat by Pulse 100 100 Oximetry (%) 07/17/17 07/17/17 07/18/17 21:35 22:00 00:00 Temperature 99.8 F H Pulse Rate 84 Respiratory 21 21 Rate Blood Pressure 173/85 O2 Sat by Pulse Oximetry (%) 07/18/17 07/18/17 07/18/17 00:30 02:00 03:32 Temperature Pulse Rate 68 Respiratory 20 22 23 Rate Blood Pressure 141/70 O2 Sat by Pulse Oximetry (%) 07/18/17 07/18/17 07/18/17 04:00 06:00 06:45 Temperature Pulse Rate 67 69 Respiratory 20 21 22 Rate Blood Pressure 147/67 163/74 O2 Sat by Pulse Oximetry (%) 07/18/17 07/18/17 07/18/17 08:00 09:00 09:07 Temperature Pulse Rate 85 Respiratory 36 H 27 H 27 H Rate Blood Pressure 190/92 O2 Sat by Pulse 100 Oximetry (%) 07/18/17 07/18/17 07/18/17 09:16 10:00 12:00 Temperature Pulse Rate 87 70 Respiratory 27 H 27 H 22 Rate Blood Pressure 182/79 174/79 O2 Sat by Pulse Oximetry (%) 07/18/17 07/18/17 12:24 14:00 Temperature Pulse Rate 68 Respiratory 24 22 Rate Blood Pressure 159/76 O2 Sat by Pulse Oximetry (%) Intake & Output 07/16/17 07/17/17 07/18/17 07/19/17 07:59 07:59 07:59 07:59 Intake Total 2992 2506 1793 Output Total 2300 2500 2400 Balance 692 6 -607 Weight 211 lb 212 lb 7 oz 215 lb 9.793 oz Constitutional: Yes: Well Nourished, No Distress, intubated, sedated. Eyes: No: Sclera Icterus Respiratory: Yes: mechanical breath sounds (anteriorly (pt intubated)). No: Accessory Muscle Use, Rales, Wheezes Gastrointestinal: Yes: Normal Bowel Sounds. No: Distention, Hepatomegaly, Palpable Mass, Tenderness Cardiovascular: Yes: tachcyardic, Regular Rate and Rhythm JVD: No Heart Sounds: Yes: S1, S2. No: Gallop Murmur: No: Systolic Murmur, Diastolic Murmurs) Extremities: No: Cool (feet), Cyanosis Edema: No Integumentary: No: Jaundice Neurological: No: sedated Psychiatric: No: Agitated - Other Data Labs, Other Data: CBC, BMP 07/18/17 05:05 07/18/17 05:05 Laboratory Tests 07/18/17 05:05 Magnesium 1.7 L tele: sr, pvc's. r EKG 07/07: sinus tach with pvc's. new difufes TWI. worse in precordial leads. prolonged qtc. cxr 07/16: no chf ECG #1: sinus tach, normal axis, +/- long QT (mild); no pathol q waves; borderline ischemic appearing ST depressions inferior leads and V6 (no old but this was not reported on 12/24 office ecg) #2: NSR, STs resolving ECG 07/07: MPI 05/26: no ischemia, EF 33% (global echo 06/2017: nl lv size. LV fn mod-sev reduced (global). nl rv size/fn. 1+ mac/mr/tr. rvsp 30-40. + pleural effusion. Echo 05/26 ([facility]): mod LVE, mild global LV hypo; nl RV; mild LAE; mild MR Echo 12/24: nl LV and RV, nl valves a/p: 56 yo smoker with h/o mild lv dysfunction, htn, hl, ckd, hiv, dm p/w progressive sob and subsequent PEA arrest with EMS (s/p resuscitation). acute hypoxic resp failure, acute on chronic syst CHF, NSTEMI, cardiac arrest ( PEA): -initially with marked chf on cxr in setting of several days of worsening sob -suspect PEA due to severe chf decompensation with acute hypoxia -suspected anoxic brain injury now, neuro following -cxr w/o chf, no clinical chf, did not respond to brief trial of lasix gtt -resting echo 05/26 with mild LV dysfunction, ? echo overestimaged EF (nuclear estimated EF 33%) -NSTEMI trop trend here with peak 1.3 ([id number] pattern) -ECG initially here with borderline ST changes for ischemia (likely secondary) -? underlying CAD with balanced ischemia on nuclear. -repeat echo here with worsened systolic function. (consider repeat echo vs. invasive ischemia eval (cath) if he were to make meaningful recovery.) -cont beta blockade -no NORRIS/ARB given profound FLORECITA -remains without suspected volume/chf--no diuresis for now -per critical care, may need trach vs compassionate wean from vent FLORECITA on CKD: -baseline creat here 2.8 in 05/26. initially 2.4 on presentation to ER, up to 6s here. -suspect hypoperfusion/atn as cause -holding lasix -renal following. IVF/bicarb per renal. - 07/18 bun/cr improving but hypernatremia worsening. disussed with renal and nursing. Ng tube has been repositioned, resuming free water flushes. HTN: -07/16 bp elevated at times, increase coreg to 12.5 bid - 07/17: bp labile today on higher dose of coreg. will con't to monitor. - 07/18: bp stable today, but running high. will uptitrate coreg. HIV/Hep C: -per ID team anemia, gib: -likely ugib -hgb improved s/p prbcs. trending down slowly. con't to monitor. GOC - GOC discussions ongoing poor prognosis. est cct 35 mins
--- NOTE | 2017-07-18 14:57 | PN ---
Progress Note (short form) - Note Progress Note: problems 1. FLORECITA 2. CKD 3. cardiac arrest 4. CHF 5. HIV 6. hypomagnesemia 7. anoxic brain injury 8. anemia 9. hyperglycemia 10. HTN 11. acidosis Active Medications Acetaminophen (Tylenol Oral Solution -) 650 mg PO Q6H PRN PRN Reason: FEVER OR PAIN Last Admin: 07/16/17 21:41 Dose: 650 mg Artificial Tears (Artificial Tears) 1 drop OU BID PRN PRN Reason: DRY EYES Carvedilol (Coreg -) 12.5 mg PO BID [facility] Last Admin: 07/18/17 11:19 Dose: 12.5 mg Dexamethasone Sodium Phosphate (Decadron Injection -) 2 mg IVPUSH BID [facility] Last Admin: 07/18/17 11:17 Dose: 2 mg Heparin Sodium (Porcine) (Heparin -) 5,000 unit SQ TID [facility] Last Admin: 07/18/17 06:15 Dose: 5,000 unit Propofol (Diprivan -) 1,000,000 mcg in 100 mls @ 2.807 mls/hr IVPB TITR [facility]; 5 MCG/KG/MIN PRN Reason: Protocol Last Admin: 07/17/17 22:05 Dose: 45.96 mcg/kg/min, 25.798 mls/hr Pantoprazole Sodium 80 mg/ (Sodium Chloride) 100 mls @ 10 mls/hr IVPB Q10H [facility] PRN Reason: 8 MG/HR Last Admin: 07/17/17 22:07 Dose: 10 mls/hr Midazolam HCl 100 mg/ Sodium (Chloride) 100 mls @ 1 mls/hr IVPB TITR [facility]; 1 MG/ HR PRN Reason: Protocol Last Admin: 07/16/17 10:27 Dose: Not Given Sodium Bicarbonate 50 meq/ (Sodium Chloride) 1,050 mls @ 83 mls/hr IV Q12H [facility] Last Admin: 07/18/17 00:55 Dose: 83 mls/hr Insulin Aspart (Novolog Vial Sliding Scale -) 1 vial SQ ACHS [facility] PRN Reason: Protocol Last Admin: 07/18/17 06:16 Dose: 2 units Insulin Detemir (Levemir Vial) 20 units SQ BID@0700,2200 [facility] Last Admin: 07/18/17 06:15 Dose: 20 units Labetalol HCl (Normodyne Injection -) 10 mg IVPUSH Q4H PRN PRN Reason: HYPERTENSION Last Admin: 07/18/17 06:28 Dose: 10 mg Metoprolol Tartrate (Lopressor Injection -) 5 mg IVPUSH Q4H PRN PRN Reason: HYPERTENSION Last Admin: 07/16/17 10:13 Dose: 5 mg Sodium Bicarbonate (Sodium Bicarbonate -) 650 mg PO TID [facility] Last Admin: 07/18/17 06:15 Dose: 650 mg Last Vital Signs Temp Pulse Resp BP Pulse Ox 99.8 F H 68 22 159/76 100 07/17/17 22:00 07/18/17 14:00 07/18/17 14:00 07/18/17 14:00 07/18/17 09:00 CBC, BMP 07/18/17 05:05 07/18/17 05:05 IMP- hypernatremia azotemia on ngt hydration Plan - feeds were held - add free water via NGT - repeat labs in am - monitor renal function - cont with fluids - BP is improving - vent support - likely ATN from hypotension during arrest, cont to monitor for recovery - cont to monitor urine output
[2017-07-18] MEDS ORDERED: CARVEDILOL 12.5 MG TABLET (FP) PO ONE ×2 (15:45→16:15)
[2017-07-18] MEDS: MAGNESIUM SULF 50% (8.12 MEQ/2 ML-1 GM VIAL) IVPB ONE ×2 (16:18→16:28)
[2017-07-18] MEDS: CARVEDILOL 25 MG TABLET (FP) PO SCH (22:16)
--- NOTE | 2017-07-19 00:09 | PN ---
Progress Note, Physician History of Present Illness: Pt remains intubated Pt w/ poor prognosis - Current Medication List Current Medications: Active Medications Acetaminophen (Tylenol Oral Solution -) 650 mg PO Q6H PRN PRN Reason: FEVER OR PAIN Last Admin: 07/16/17 21:41 Dose: 650 mg Artificial Tears (Artificial Tears) 1 drop OU BID PRN PRN Reason: DRY EYES Carvedilol (Coreg -) 25 mg PO BID [facility] Last Admin: 07/18/17 22:16 Dose: 25 mg Dexamethasone Sodium Phosphate (Decadron Injection -) 2 mg IVPUSH BID [facility] Last Admin: 07/18/17 22:16 Dose: 2 mg Heparin Sodium (Porcine) (Heparin -) 5,000 unit SQ TID [facility] Last Admin: 07/18/17 22:16 Dose: 5,000 unit Propofol (Diprivan -) 1,000,000 mcg in 100 mls @ 2.807 mls/hr IVPB TITR [facility]; 5 MCG/KG/MIN PRN Reason: Protocol Last Admin: 07/18/17 09:55 Dose: 60 mcg/kg/min, 33.679 mls/hr Pantoprazole Sodium 80 mg/ (Sodium Chloride) 100 mls @ 10 mls/hr IVPB Q10H [facility] PRN Reason: 8 MG/HR Last Admin: 07/18/17 22:17 Dose: 10 mls/hr Midazolam HCl 100 mg/ Sodium (Chloride) 100 mls @ 1 mls/hr IVPB TITR [facility]; 1 MG/ HR PRN Reason: Protocol Last Admin: 07/16/17 10:27 Dose: Not Given Sodium Bicarbonate 50 meq/ (Sodium Chloride) 1,050 mls @ 83 mls/hr IV Q12H [facility] Last Admin: 07/18/17 00:55 Dose: 83 mls/hr Insulin Aspart (Novolog Vial Sliding Scale -) 1 vial SQ ACHS [facility] PRN Reason: Protocol Last Admin: 07/18/17 22:32 Dose: 6 units Insulin Detemir (Levemir Vial) 20 units SQ BID@0700,2200 [facility] Last Admin: 07/18/17 06:15 Dose: 20 units Labetalol HCl (Normodyne Injection -) 10 mg IVPUSH Q4H PRN PRN Reason: HYPERTENSION Last Admin: 07/18/17 06:28 Dose: 10 mg Sodium Bicarbonate (Sodium Bicarbonate -) 650 mg PO TID [facility] Last Admin: 07/18/17 22:16 Dose: 650 mg - Objective Vital Signs: Vital Signs Temperature 99.8 F H 07/17/17 22:00 Pulse Rate 75 07/18/17 22:53 Respiratory Rate 26 H 07/18/17 22:00 Blood Pressure 161/62 07/18/17 20:00 O2 Sat by Pulse Oximetry (%) 100 07/18/17 22:53 HENT: Yes: Other ((+) ETT) Neck: Yes: WNL, Supple Cardiovascular: Yes: WNL, Regular Rate and Rhythm Respiratory: Yes: Diminished Gastrointestinal: Yes: WNL, Normal Bowel Sounds, Soft Labs: CBC, BMP 07/18/17 05:05 07/18/17 05:05 INR, PTT INR 1.18 (0.82-1.09) H 07/06/17 05:00 Problem List - Problems (1) Respiratory failure Assessment/Plan: Poor prognosis Cont nebulizers Cont empiric antibxs Code(s): J96.90 - RESPIRATORY FAILURE, UNSP, UNSP W HYPOXIA OR HYPERCAPNIA (2) Cardiopulmonary arrest with successful resuscitation Assessment/Plan: Pt remains intubated Pt w/ anoxic brain injury Cont decadron for cerebral edema Remains intubated Code(s): I46.9 - CARDIAC ARREST, CAUSE UNSPECIFIED (3) Uncontrolled diabetes mellitus Assessment/Plan: Cont sliding scale w/ coverage Code(s): E11.65 - TYPE 2 DIABETES MELLITUS WITH HYPERGLYCEMIA (4) Acute on chronic diastolic CHF (congestive heart failure) Code(s): I50.33 - ACUTE ON CHRONIC DIASTOLIC (CONGESTIVE) HEART FAILURE
[2017-07-19] MEDS: LABETALOL HCL 5 MG/1 ML (100MG/20 ML VIAL) IVPUSH PRN (01:30)
[2017-07-19 05:58] LABS: EOS % 1.7 % (0-4.5); MCH 28.1 pg (25.7-33.7); MCHC 33.6 g/dl (32.0-35.9); MEAN CELL VOLUME 83.8 fl (80-96); MEAN PLT VOLUME 10.4 fl (7.5-11.1); NEUT % 77.8 % (42.8-82.8); PLATELET COUNT 139 K/MM3 (134-434); RDW 17.2 % (11.9-15.9); WHITE BLOOD COUNT 14.3 K/mm3 (4.0-10.0)
[2017-07-19] MEDS: INSULIN DETEMIR 100 UNITS/ML MDV SQ SCH ×2 (06:26→21:07)
[2017-07-19 06:27] LABS: ALBUMIN 1.7 g/dl (3.4-5.0); ANION GAP 13 (8-16); CO2 15 mmol/L (21-32); GLUCOSE,RANDOM 270 mg/dL (74-106); MAGNESIUM 1.8 mg/dL (1.8-2.4); SGOT/AST 29 U/L (15-37)
[2017-07-19] MEDS: SODIUM BICARBONATE 8.4% - 50 MEQ in SODIUM CHLORIDE 0.45% 1,000 ML IV SCH ×4 (06:27→21:37)
[2017-07-19] MEDS: INSULIN SLIDING SCALE (NOVOLOG) 1 VIAL SQ SCH ×4 (06:28→21:11)
[2017-07-19 06:29] LABS: ALK PHOS 46 U/L (45-117); BILIRUBIN,TOTAL 0.7 mg/dL (0.2-1.0); CREATININE 2.8 mg/dL (0.7-1.3); SGPT/ALT 23 U/L (12-78); TOT PROT 4.9 g/dl (6.4-8.2)
[2017-07-19 06:33] LABS: CALCIUM 6.7 mg/dL (8.5-10.1)
[2017-07-19] MEDS: HEPARIN NA (PORCINE) 5,000 UNITS/ML 1ML VIAL SQ SCH ×3 (07:05→21:09)
--- NOTE | 2017-07-19 09:15 | PN ---
Progress Note, Physician Chief Complaint: resp failure History of Present Illness: intubated/sedated - Current Medication List Current Medications: Active Medications Acetaminophen (Tylenol Oral Solution -) 650 mg PO Q6H PRN PRN Reason: FEVER OR PAIN Last Admin: 07/16/17 21:41 Dose: 650 mg Artificial Tears (Artificial Tears) 1 drop OU BID PRN PRN Reason: DRY EYES Carvedilol (Coreg -) 25 mg PO BID [facility] Last Admin: 07/18/17 22:16 Dose: 25 mg Dexamethasone Sodium Phosphate (Decadron Injection -) 2 mg IVPUSH BID [facility] Last Admin: 07/18/17 22:16 Dose: 2 mg Heparin Sodium (Porcine) (Heparin -) 5,000 unit SQ TID [facility] Last Admin: 07/19/17 07:05 Dose: 5,000 unit Propofol (Diprivan -) 1,000,000 mcg in 100 mls @ 2.807 mls/hr IVPB TITR [facility]; 5 MCG/KG/MIN PRN Reason: Protocol Last Admin: 07/18/17 09:55 Dose: 60 mcg/kg/min, 33.679 mls/hr Pantoprazole Sodium 80 mg/ (Sodium Chloride) 100 mls @ 10 mls/hr IVPB Q10H [facility] PRN Reason: 8 MG/HR Last Admin: 07/18/17 22:17 Dose: 10 mls/hr Midazolam HCl 100 mg/ Sodium (Chloride) 100 mls @ 1 mls/hr IVPB TITR [facility]; 1 MG/ HR PRN Reason: Protocol Last Admin: 07/16/17 10:27 Dose: Not Given Sodium Bicarbonate 50 meq/ (Sodium Chloride) 1,050 mls @ 83 mls/hr IV Q12H [facility] Last Admin: 07/19/17 06:27 Dose: 83 mls/hr Insulin Aspart (Novolog Vial Sliding Scale -) 1 vial SQ ACHS [facility] PRN Reason: Protocol Last Admin: 07/19/17 06:28 Dose: Not Given Insulin Detemir (Levemir Vial) 20 units SQ BID@0700,2200 [facility] Last Admin: 07/19/17 06:26 Dose: 20 units Labetalol HCl (Normodyne Injection -) 10 mg IVPUSH Q4H PRN PRN Reason: HYPERTENSION Last Admin: 07/19/17 01:30 Dose: 10 mg Sodium Bicarbonate (Sodium Bicarbonate -) 650 mg PO TID [facility] Last Admin: 07/18/17 22:16 Dose: 650 mg - Objective Vital Signs: Vital Signs Temperature 99.1 F 07/19/17 08:00 Pulse Rate 62 07/19/17 08:00 Respiratory Rate 25 H 07/19/17 09:06 Blood Pressure 147/67 07/19/17 08:00 O2 Sat by Pulse Oximetry (%) 100 07/18/17 22:53 Constitutional: Yes: Well Nourished, No Distress, Calm Cardiovascular: Yes: Regular Rate and Rhythm, S1, S2. No: JVD (tds exam (ETT tube)), Gallop, Murmur Respiratory: Yes: Regular, CTA Bilaterally (anteriorly). No: Accessory Muscle Use, Rales, Wheezes Extremities: No: Cold Edema: No Neurological: No: Alert, Oriented, Seizure Psychiatric: No: Agitated Labs: CBC, BMP 07/19/17 05:00 07/19/17 05:00 INR, PTT INR 1.18 (0.82-1.09) H 07/06/17 05:00 - ....Imaging EKG: Other (tele: NSR) Assessment/Plan cxr 07/16: no chf MPI 05/26: no ischemia, EF 33% (global Echo 06/2017: nl lv size. LV fn mod-sev reduced (global). nl rv size/fn. 1+ mac/mr/tr. rvsp 30-40. + pleural effusion. Echo 05/26 (): mod LVE, mild global LV hypo; nl RV; mild LAE; mild MR Echo 12/24: nl LV and RV, nl valves a/p: 56 yo smoker with h/o mild lv dysfunction, htn, hl, ckd, hiv, dm p/w progressive sob and subsequent PEA arrest with EMS (s/p resuscitation). acute hypoxic resp failure, acute on chronic syst CHF, NSTEMI, cardiac arrest ( PEA): -initially with marked chf on cxr in setting of several days of worsening sob -suspect PEA due to severe chf decompensation with acute hypoxia -suspected anoxic brain injury now, neuro following -cxr w/o chf, no clinical chf, did not respond to brief trial of lasix gtt -resting echo 05/26 with mild LV dysfunction, ? echo overestimaged EF (nuclear estimated EF 33%) -NSTEMI trop trend here with peak 1.3 ([id number] pattern) -ECG initially here with borderline ST changes for ischemia (likely secondary)-- ? underlying CAD with balanced ischemia on nuclear. -repeat echo here with worsened systolic function -ischemia w/u on hold due to poor neurological function/poor prognosis -cont beta blockade -no NORRIS/ARB given profound FLORECITA -remains without suspected volume/chf--no diuresis for now -per critical care, may need trach vs compassionate wean from vent--awaiting decision from family FLORECITA on CKD, hypernatremia: -baseline creat here 2.8 in 05/26. initially 2.4 on presentation to ER, up to 6s here. -suspect hypoperfusion/atn as cause -holding lasix -renal following, renal fxn improving -free water boluses via NGT for hypernatremia HTN: -07/16 bp elevated at times, increase coreg to 12.5 bid - 07/17: bp labile today on higher dose of coreg. will con't to monitor. - 07/18: bp stable today, but running high. will uptitrate coreg. HIV/Hep C: -per ID team anemia, gib: -likely ugib -hgb improved s/p prbcs, now trending down again--? recurrent bleeding. -monitor labs, consider transfusion if hgb <8, if in line with family's goals of care decisions--per crit care ongoing discussions GOC - GOC discussions ongoing poor prognosis.
[2017-07-19] MEDS ORDERED: PT OWN MED DRAWER 7, Y5N ONE (09:59)
[2017-07-19] MEDS: PANTOPRAZOLE SODIUM 80 MG in SODIUM CHLORIDE 100 ML IVPB SCH ×2 (10:07→23:16)
[2017-07-19] MEDS: CARVEDILOL 25 MG TABLET (FP) PO SCH ×2 (10:50→21:08)
[2017-07-19] MEDS: DEXAMETHASONE SOD PHOSPHATE 4 MG/1 ML VIAL IVPUSH SCH ×2 (10:50→21:09)
[2017-07-19] MEDS: SODIUM BICARBONATE 650 MG TABLET PO SCH ×3 (10:50→21:10)
--- NOTE | 2017-07-19 11:08 | PN ---
Progress Note (short form) - Note Progress Note: PULMONARY/CCM Pt seen and examined in the ICU. Remains intubated, sedated. No fevers recorded. Apparently family coming in today to make pt DNR/DNI. Last Vital Signs Temp Pulse Resp BP Pulse Ox 99.1 F 62 25 H 147/67 100 07/19/17 08:00 07/19/17 08:00 07/19/17 09:06 07/19/17 08:00 07/19/17 09:00 Intake & Output 07/16/17 07/17/17 07/18/17 07/19/17 23:59 23:59 23:59 23:59 Intake Total 2435 1720 1784 1066.3 Output Total 1700 3000 1500 900 Balance 735 -1280 284 166.3 Weight 211 lb 212 lb 7 oz 215 lb 9.793 oz 216 lb 11.43 oz Gen: intubated, sedated, less tachypneic Heart: RRR Lung: scattered rhonchi Abd: soft, nontender Ext: + edema CBC, BMP 07/19/17 05:00 07/19/17 05:00 Active Medications Acetaminophen (Tylenol Oral Solution -) 650 mg PO Q6H PRN PRN Reason: FEVER OR PAIN Last Admin: 07/16/17 21:41 Dose: 650 mg Artificial Tears (Artificial Tears) 1 drop OU BID PRN PRN Reason: DRY EYES Carvedilol (Coreg -) 25 mg PO BID [facility] Last Admin: 07/19/17 10:50 Dose: 25 mg Dexamethasone Sodium Phosphate (Decadron Injection -) 2 mg IVPUSH BID [facility] Last Admin: 07/19/17 10:50 Dose: 2 mg Heparin Sodium (Porcine) (Heparin -) 5,000 unit SQ TID [facility] Last Admin: 07/19/17 07:05 Dose: 5,000 unit Propofol (Diprivan -) 1,000,000 mcg in 100 mls @ 2.807 mls/hr IVPB TITR [facility]; 5 MCG/KG/MIN PRN Reason: Protocol Last Admin: 07/18/17 09:55 Dose: 60 mcg/kg/min, 33.679 mls/hr Pantoprazole Sodium 80 mg/ (Sodium Chloride) 100 mls @ 10 mls/hr IVPB Q10H [facility] PRN Reason: 8 MG/HR Last Admin: 07/19/17 10:07 Dose: 10 mls/hr Midazolam HCl 100 mg/ Sodium (Chloride) 100 mls @ 1 mls/hr IVPB TITR [facility]; 1 MG/ HR PRN Reason: Protocol Last Admin: 07/16/17 10:27 Dose: Not Given Sodium Bicarbonate 50 meq/ (Sodium Chloride) 1,050 mls @ 83 mls/hr IV Q12H [facility] Last Admin: 07/19/17 10:07 Dose: 83 mls/hr Insulin Aspart (Novolog Vial Sliding Scale -) 1 vial SQ ACHS [facility] PRN Reason: Protocol Last Admin: 07/19/17 06:28 Dose: Not Given Insulin Detemir (Levemir Vial) 20 units SQ BID@0700,2200 [facility] Last Admin: 07/19/17 06:26 Dose: 20 units Labetalol HCl (Normodyne Injection -) 10 mg IVPUSH Q4H PRN PRN Reason: HYPERTENSION Last Admin: 07/19/17 01:30 Dose: 10 mg Sodium Bicarbonate (Sodium Bicarbonate -) 650 mg PO TID [facility] Last Admin: 07/19/17 10:50 Dose: 650 mg A/P s/p Cardiopulmonary Arrest Likely Anoxic Brain Injury Acute on Chronic Systolic Heart Failure +Troponins Acute on Chronic Renal Failure Lactic Acidosis resolved HTN HIV Hep C Smoker - completed empiric antibiotics - decrease decadron - monitor urine output, creatinine - replete lytes - daily sedation vacations to assess mental status - taper FiO2 to keep SpO2 >90% - not a candidate for weaning due to poor mental status - enteral feeds - DVT/GI prophylaxis - poor overall prognosis for meaningful recovery, had discussed with daughter, she had stated that pt would not want to be kept alive without quality of life, awaiting decision from family critical care time spent in reviewing chart, evaluating patient and formulating plan 35 min
[2017-07-19] MEDS: POTASSIUM CHLORIDE ORAL LIQUID 20 MEQ/15 ML PO SCH ×2 (12:10→21:09)
--- NOTE | 2017-07-19 16:17 | PN ---
Progress Note (short form) - Note Progress Note: problems 1. FLORECITA 2. CKD 3. cardiac arrest 4. CHF 5. HIV 6. hypomagnesemia 7. anoxic brain injury 8. anemia 9. hyperglycemia 10. HTN 11. acidosis 12. worsening hypernatremia Current Medications Acetaminophen (Tylenol Oral Solution -) 650 mg PO Q6H PRN PRN Reason: FEVER OR PAIN Last Admin: 07/16/17 21:41 Dose: 650 mg Artificial Tears (Artificial Tears) 1 drop OU BID PRN PRN Reason: DRY EYES Carvedilol (Coreg -) 25 mg PO BID [facility] Last Admin: 07/19/17 10:50 Dose: 25 mg Dexamethasone Sodium Phosphate (Decadron Injection -) 2 mg IVPUSH BID [facility] Last Admin: 07/19/17 10:50 Dose: 2 mg Heparin Sodium (Porcine) (Heparin -) 5,000 unit SQ TID [facility] Last Admin: 07/19/17 15:38 Dose: 5,000 unit Propofol (Diprivan -) 1,000,000 mcg in 100 mls @ 2.807 mls/hr IVPB TITR [facility]; 5 MCG/KG/MIN PRN Reason: Protocol Last Admin: 07/18/17 09:55 Dose: 60 mcg/kg/min, 33.679 mls/hr Pantoprazole Sodium 80 mg/ (Sodium Chloride) 100 mls @ 10 mls/hr IVPB Q10H [facility] PRN Reason: 8 MG/HR Last Admin: 07/19/17 10:07 Dose: 10 mls/hr Midazolam HCl 100 mg/ Sodium (Chloride) 100 mls @ 1 mls/hr IVPB TITR [facility]; 1 MG/ HR PRN Reason: Protocol Last Admin: 07/16/17 10:27 Dose: Not Given Sodium Bicarbonate 50 meq/ (Sodium Chloride) 1,050 mls @ 83 mls/hr IV Q12H [facility] Last Admin: 07/19/17 15:40 Dose: Not Given Insulin Aspart (Novolog Vial Sliding Scale -) 1 vial SQ ACHS [facility] PRN Reason: Protocol Last Admin: 07/19/17 12:27 Dose: 6 units Insulin Detemir (Levemir Vial) 20 units SQ BID@0700,2200 [facility] Last Admin: 07/19/17 06:26 Dose: 20 units Labetalol HCl (Normodyne Injection -) 10 mg IVPUSH Q4H PRN PRN Reason: HYPERTENSION Last Admin: 07/19/17 01:30 Dose: 10 mg Potassium Chloride (Potassium Chloride Oral Liquid) 40 meq PO BID [facility] Stop: 07/19/17 22:01 Last Admin: 07/19/17 12:10 Dose: 40 meq Sodium Bicarbonate (Sodium Bicarbonate -) 650 mg PO TID [facility] Last Admin: 07/19/17 15:41 Dose: 650 mg Last Vital Signs Temp Pulse Resp BP Pulse Ox 98.9 F 59 L 29 H 163/70 100 07/19/17 14:00 07/19/17 14:00 07/19/17 14:02 07/19/17 14:00 07/19/17 09:00 on vent unresponsive lungs clear vented sounds Abd soft Ext edema CBC, BMP 07/19/17 05:00 07/19/17 05:00 IMP- hypernatremia azotemia improving metabolic acidosis hypokalemia on ngt hydration Plan - increase free water 300 cc q 4h via NGT - repeat labs in am - monitor renal function - cont with fluids - continue vent support - likely ATN from hypotension during arrest, cont to monitor for recovery - cont to monitor urine output
[2017-07-19] MEDS: PROPOFOL 1,000,000 MCG/100 ML VIAL IVPB SCH ×2 (21:08→22:38)
--- NOTE | 2017-07-19 23:35 | PN ---
Progress Note, Physician History of Present Illness: Pt remains intubated Pt w/ poor prognosis - Current Medication List Current Medications: Active Medications Acetaminophen (Tylenol Oral Solution -) 650 mg PO Q6H PRN PRN Reason: FEVER OR PAIN Last Admin: 07/16/17 21:41 Dose: 650 mg Artificial Tears (Artificial Tears) 1 drop OU BID PRN PRN Reason: DRY EYES Carvedilol (Coreg -) 25 mg PO BID [facility] Last Admin: 07/19/17 21:08 Dose: 25 mg Dexamethasone Sodium Phosphate (Decadron Injection -) 2 mg IVPUSH BID [facility] Last Admin: 07/19/17 21:09 Dose: 2 mg Heparin Sodium (Porcine) (Heparin -) 5,000 unit SQ TID [facility] Last Admin: 07/19/17 21:09 Dose: 5,000 unit Propofol (Diprivan -) 1,000,000 mcg in 100 mls @ 2.807 mls/hr IVPB TITR PAULINE; 5 MCG/KG/MIN PRN Reason: Protocol Last Admin: 07/19/17 22:38 Dose: 50 mcg/kg/min, 28.066 mls/hr Pantoprazole Sodium 80 mg/ (Sodium Chloride) 100 mls @ 10 mls/hr IVPB Q10H [facility] PRN Reason: 8 MG/HR Last Admin: 07/19/17 23:16 Dose: Not Given Midazolam HCl 100 mg/ Sodium (Chloride) 100 mls @ 1 mls/hr IVPB TITR PAULINE; 1 MG/ HR PRN Reason: Protocol Last Admin: 07/16/17 10:27 Dose: Not Given Sodium Bicarbonate 50 meq/ (Sodium Chloride) 1,050 mls @ 83 mls/hr IV Q12H [facility] Last Admin: 07/19/17 21:37 Dose: 83 mls/hr Insulin Aspart (Novolog Vial Sliding Scale -) 1 vial SQ ACHS PA[facility]INE PRN Reason: Protocol Last Admin: 07/19/17 21:11 Dose: 6 units Insulin Detemir (Levemir Vial) 20 units SQ BID@0700,2200 [facility] Last Admin: 07/19/17 21:07 Dose: 20 units Labetalol HCl (Normodyne Injection -) 10 mg IVPUSH Q4H PRN PRN Reason: HYPERTENSION Last Admin: 07/19/17 01:30 Dose: 10 mg Sodium Bicarbonate (Sodium Bicarbonate -) 650 mg PO TID [facility] Last Admin: 07/19/17 21:10 Dose: 650 mg - Objective Vital Signs: Vital Signs Temperature 99.2 F 07/19/17 22:00 Pulse Rate 61 07/19/17 22:00 Respiratory Rate 24 07/19/17 22:00 Blood Pressure 163/77 07/19/17 22:00 O2 Sat by Pulse Oximetry (%) 100 07/19/17 20:28 Eyes: Yes: WNL HENT: Yes: Other ((+) ETT) Neck: Yes: WNL, Supple Cardiovascular: Yes: WNL, Regular Rate and Rhythm Respiratory: Yes: WNL, Regular, CTA Bilaterally Gastrointestinal: Yes: WNL, Normal Bowel Sounds, Soft Labs: CBC, BMP 07/19/17 05:00 07/19/17 05:00 INR, PTT INR 1.18 (0.82-1.09) H 07/06/17 05:00 Problem List - Problems (1) Respiratory failure Assessment/Plan: Poor prognosis Decadron being decreased Awaiting family decision for further management Code(s): J96.90 - RESPIRATORY FAILURE, UNSP, UNSP W HYPOXIA OR HYPERCAPNIA (2) Cardiopulmonary arrest with successful resuscitation Assessment/Plan: Pt remains intubated Pt w/ anoxic brain injury Cont decadron for cerebral edema wc is being tapered Remains intubated Code(s): I46.9 - CARDIAC ARREST, CAUSE UNSPECIFIED (3) Uncontrolled diabetes mellitus Assessment/Plan: Cont sliding scale w/ coverage Code(s): E11.65 - TYPE 2 DIABETES MELLITUS WITH HYPERGLYCEMIA (4) Acute on chronic diastolic CHF (congestive heart failure) Code(s): I50.33 - ACUTE ON CHRONIC DIASTOLIC (CONGESTIVE) HEART FAILURE
[2017-07-20] MEDS: LABETALOL HCL 5 MG/1 ML (100MG/20 ML VIAL) IVPUSH PRN ×2 (04:11→08:48)
[2017-07-20] MEDS: PROPOFOL 1,000,000 MCG/100 ML VIAL IVPB SCH ×4 (04:11→23:30)
[2017-07-20] MEDS: PANTOPRAZOLE SODIUM 80 MG in SODIUM CHLORIDE 100 ML IVPB SCH ×2 (04:12→11:20)
[2017-07-20] MEDS: SODIUM BICARBONATE 8.4% - 50 MEQ in SODIUM CHLORIDE 0.45% 1,000 ML IV SCH (04:13)
[2017-07-20] MEDS: HEPARIN NA (PORCINE) 5,000 UNITS/ML 1ML VIAL SQ SCH ×3 (05:11→21:30)
[2017-07-20] MEDS: SODIUM BICARBONATE 650 MG TABLET PO SCH ×3 (05:49→21:30)
[2017-07-20 06:09] LABS: BASO % 0.9 % (0-2.0); EOS % 2.3 % (0-4.5); MCH 27.9 pg (25.7-33.7); MCHC 32.9 g/dl (32.0-35.9); MEAN CELL VOLUME 84.8 fl (80-96); MEAN PLT VOLUME 10.7 fl (7.5-11.1); NEUT % 73.6 % (42.8-82.8); PLATELET COUNT 135 K/MM3 (134-434); RDW 17.5 % (11.9-15.9); WHITE BLOOD COUNT 12.5 K/mm3 (4.0-10.0)
[2017-07-20] MEDS: INSULIN DETEMIR 100 UNITS/ML MDV SQ SCH ×2 (06:13→22:19)
[2017-07-20] MEDS: INSULIN SLIDING SCALE (NOVOLOG) 1 VIAL SQ SCH ×4 (06:13→22:20)
[2017-07-20 06:49] LABS: ALBUMIN 1.8 g/dl (3.4-5.0); ANION GAP 13 (8-16); CO2 12 mmol/L (21-32); CREATININE 2.3 mg/dL (0.7-1.3); GLUCOSE,RANDOM 297 mg/dL (74-106); MAGNESIUM 1.8 mg/dL (1.8-2.4); PHOSPHOROUS 3.1 mg/dL (2.5-4.9); SGOT/AST 46 U/L (15-37); SGPT/ALT 53 U/L (12-78)
[2017-07-20 06:51] LABS: ALK PHOS 73 U/L (45-117); BILIRUBIN,TOTAL 0.6 mg/dL (0.2-1.0); TOT PROT 5.3 g/dl (6.4-8.2)
[2017-07-20 06:57] LABS: CALCIUM 6.6 mg/dL (8.5-10.1)
[2017-07-20] MEDS: KCL 10 MEQ IVPB 10 MEQ/100 ML INFUS.BAG IVPB SCH ×6 (08:53→19:37)
[2017-07-20] MEDS: CARVEDILOL 25 MG TABLET (FP) PO SCH ×2 (09:14→21:30)
[2017-07-20] MEDS: DEXAMETHASONE SOD PHOSPHATE 4 MG/1 ML VIAL IVPUSH SCH (09:14)
--- NOTE | 2017-07-20 09:16 | PN ---
Progress Note, Physician Chief Complaint: PEA arrest, resp failure History of Present Illness: intubated/sedated, no agitation or tachypnea - Current Medication List Current Medications: Active Medications Acetaminophen (Tylenol Oral Solution -) 650 mg PO Q6H PRN PRN Reason: FEVER OR PAIN Last Admin: 07/16/17 21:41 Dose: 650 mg Artificial Tears (Artificial Tears) 1 drop OU BID PRN PRN Reason: DRY EYES Carvedilol (Coreg -) 25 mg PO BID [facility] Last Admin: 07/20/17 09:14 Dose: 25 mg Dexamethasone Sodium Phosphate (Decadron Injection -) 2 mg IVPUSH BID [facility] Last Admin: 07/20/17 09:14 Dose: 2 mg Heparin Sodium (Porcine) (Heparin -) 5,000 unit SQ TID [facility] Last Admin: 07/20/17 05:11 Dose: 5,000 unit Propofol (Diprivan -) 1,000,000 mcg in 100 mls @ 2.807 mls/hr IVPB TITR PAULINE; 5 MCG/KG/MIN PRN Reason: Protocol Last Admin: 07/20/17 05:12 Dose: 50 mcg/kg/min, 28.066 mls/hr Pantoprazole Sodium 80 mg/ (Sodium Chloride) 100 mls @ 10 mls/hr IVPB Q10H [facility] PRN Reason: 8 MG/HR Last Admin: 07/20/17 04:12 Dose: 10 mls/hr Midazolam HCl 100 mg/ Sodium (Chloride) 100 mls @ 1 mls/hr IVPB TITR PAULINE; 1 MG/ HR PRN Reason: Protocol Last Admin: 07/16/17 10:27 Dose: Not Given Sodium Bicarbonate 50 meq/ (Sodium Chloride) 1,050 mls @ 83 mls/hr IV Q12H [facility] Last Admin: 07/20/17 04:13 Dose: Not Given Potassium Chloride (Potassium Chloride 10 Meq Premix Ivpb -) 10 meq in 100 mls @ 100 mls/hr IVPB Q60M [facility] Stop: 07/20/17 11:14 Last Admin: 07/20/17 08:53 Dose: 100 mls/hr Insulin Aspart (Novolog Vial Sliding Scale -) 1 vial SQ ACHS [facility] PRN Reason: Protocol Last Admin: 07/20/17 06:13 Dose: 6 units Insulin Detemir (Levemir Vial) 20 units SQ BID@0700,2200 [facility] Last Admin: 07/20/17 06:13 Dose: 20 units Labetalol HCl (Normodyne Injection -) 10 mg IVPUSH Q4H PRN PRN Reason: HYPERTENSION Last Admin: 07/20/17 08:48 Dose: 10 mg Sodium Bicarbonate (Sodium Bicarbonate -) 650 mg PO TID [facility] Last Admin: 07/20/17 05:49 Dose: 650 mg - Objective Vital Signs: Vital Signs Temperature 99 F 07/20/17 06:00 Pulse Rate 66 07/20/17 08:00 Respiratory Rate 30 H 07/20/17 09:00 Blood Pressure 174/67 07/20/17 08:00 O2 Sat by Pulse Oximetry (%) 100 07/20/17 09:00 Constitutional: Yes: Well Nourished, No Distress, Calm Respiratory: Yes: Regular, CTA Bilaterally (anteriorly). No: Accessory Muscle Use, Rales Extremities: No: Cold Edema: No (SCDs) Neurological: No: Alert, Oriented, Seizure Psychiatric: No: Agitated Labs: CBC, BMP 07/20/17 06:00 07/20/17 06:00 INR, PTT INR 1.18 (0.82-1.09) H 07/06/17 05:00 - ....Imaging EKG: Other (tele: NSR) Assessment/Plan cxr 07/16: no chf MPI 05/26: no ischemia, EF 33% (global Echo 06/2017: nl lv size. LV fn mod-sev reduced (global). nl rv size/fn. 1+ mac/mr/tr. rvsp 30-40. + pleural effusion. Echo 05/26 (): mod LVE, mild global LV hypo; nl RV; mild LAE; mild MR Echo 12/24: nl LV and RV, nl valves a/p: 56 yo smoker with h/o mild lv dysfunction, htn, hl, ckd, hiv, dm p/w progressive sob and subsequent PEA arrest with EMS (s/p resuscitation). acute hypoxic resp failure, acute on chronic syst CHF, NSTEMI, cardiac arrest ( PEA): -initially with marked chf on cxr in setting of several days of worsening sob -suspect PEA due to severe chf decompensation with acute hypoxia -suspected anoxic brain injury now, neuro following -cxr w/o chf, no clinical chf, did not respond to brief trial of lasix gtt -resting echo 05/26 with mild LV dysfunction, ? echo overestimaged EF (nuclear estimated EF 33%) -NSTEMI trop trend here with peak 1.3 ([id number] pattern) -ECG initially here with borderline ST changes for ischemia (likely secondary)-- ? underlying CAD with balanced ischemia on nuclear. -repeat echo here with worsened systolic function -ischemia w/u on hold due to poor neurological function/poor prognosis -cont beta blockade -no NORRIS/ARB given profound FLORECITA -remains without suspected volume/chf--no diuresis for now -per critical care, may need trach vs compassionate wean from vent--awaiting decision from family FLORECITA on CKD, hypernatremia: -baseline creat here 2.8 in 05/26. initially 2.4 on presentation to ER, up to 6s here. -suspect hypoperfusion/atn as cause -holding lasix -renal following, renal fxn improving -free water boluses via NGT for hypernatremia HTN: -07/16 bp elevated at times, increase coreg to 12.5 bid - 07/17: bp labile today on higher dose of coreg. will con't to monitor. - 07/18: bp stable today, but running high. will uptitrate coreg. HIV/Hep C: -per ID team anemia, gib: -likely ugib -hgb improved s/p prbcs, now trending down again--? recurrent bleeding. -monitor labs, consider transfusion if hgb <8, if in line with family's goals of care decisions--per crit care ongoing discussions GOC - GOC discussions ongoing
--- NOTE | 2017-07-20 10:00 | PN ---
Progress Note (short form) - Note Progress Note: Neurology History of Present Illness: Mr. Welch is a 56 y/o man w/ HTN, HL, DM, CKD, HIV on HAART, EF 49.5%, BIBA for SOB. Reportedly had been experiencing worsening SOB & SAMUELS w/ assoc wheezing for several days prior to admission. While in route developed further respiratory distress and in ER had agonal breathing and unresponsive. No pulse noted on stretcher transferand chest compressions were initiated. The Pt was resuscitated per ACLS protocol for approximately 5 minutes according to note, receiving epi x 2, bicarb x 2. Pt was intubated and placed on ventilator and given nebulizers and steroids. Pt admitted to the ICU s/p Cardiac Arrest and respiratory failure. The patient has been on propofol but having myoclonic twitches especially in right foot. Given his history, this is likely myoclonic jerks 2/2 to anoxic brain injury. Klonipin was started, twitching improved and not visible at this time. There is minimal pupil contriction from 3mm to 2mm and therefore does not meet criteria for brain . However, only minimal brainstem activity and no significant improvement thus far. EEG completed, showed mix of theta and beta activity, consistent with encephalopathy. Again, not brain . CT head completed and showed cerebral edema, repeated and showed improved cerebral edema likely due to steroids given. Clinically without signficiant improvement. Spoke to resident about tapering Decadron yesterday and was to be cut in half each day. Attempts to wean propofol led to tachycardia and tachypnea. Spoke to nurse this AM and patient being considered for palliative care as he has had no significant improvements and remains in ICU dependent on vent. They would not want to pursue trach and skilled nursing vent as well as PEG for maintain of life. Active Medications Acetaminophen (Tylenol Oral Solution -) 650 mg PO Q6H PRN PRN Reason: FEVER OR PAIN Last Admin: 07/16/17 21:41 Dose: 650 mg Artificial Tears (Artificial Tears) 1 drop OU BID PRN PRN Reason: DRY EYES Carvedilol (Coreg -) 25 mg PO BID [facility] Last Admin: 07/20/17 09:14 Dose: 25 mg Dexamethasone Sodium Phosphate (Decadron Injection -) 2 mg IVPUSH BID [facility] Last Admin: 07/20/17 09:14 Dose: 2 mg Heparin Sodium (Porcine) (Heparin -) 5,000 unit SQ TID [facility] Last Admin: 07/20/17 05:11 Dose: 5,000 unit Propofol (Diprivan -) 1,000,000 mcg in 100 mls @ 2.807 mls/hr IVPB TITR PAULINE; 5 MCG/KG/MIN PRN Reason: Protocol Last Admin: 07/20/17 05:12 Dose: 50 mcg/kg/min, 28.066 mls/hr Pantoprazole Sodium 80 mg/ (Sodium Chloride) 100 mls @ 10 mls/hr IVPB Q10H [facility] PRN Reason: 8 MG/HR Last Admin: 07/20/17 04:12 Dose: 10 mls/hr Midazolam HCl 100 mg/ Sodium (Chloride) 100 mls @ 1 mls/hr IVPB TITR PAULINE; 1 MG/ HR PRN Reason: Protocol Last Admin: 07/16/17 10:27 Dose: Not Given Sodium Bicarbonate 50 meq/ (Sodium Chloride) 1,050 mls @ 83 mls/hr IV Q12H [facility] Last Admin: 07/20/17 04:13 Dose: Not Given Potassium Chloride (Potassium Chloride 10 Meq Premix Ivpb -) 10 meq in 100 mls @ 100 mls/hr IVPB Q60M [facility] Stop: 07/20/17 11:14 Last Admin: 07/20/17 08:53 Dose: 100 mls/hr Insulin Aspart (Novolog Vial Sliding Scale -) 1 vial SQ ACHS [facility] PRN Reason: Protocol Last Admin: 07/20/17 06:13 Dose: 6 units Insulin Detemir (Levemir Vial) 20 units SQ BID@0700,2200 [facility] Last Admin: 07/20/17 06:13 Dose: 20 units Labetalol HCl (Normodyne Injection -) 10 mg IVPUSH Q4H PRN PRN Reason: HYPERTENSION Last Admin: 07/20/17 08:48 Dose: 10 mg Sodium Bicarbonate (Sodium Bicarbonate -) 650 mg PO TID [facility] Last Admin: 07/20/17 05:49 Dose: 650 mg Physical Exam Vital Signs Temperature 99 F 07/20/17 06:00 Pulse Rate 66 07/20/17 08:00 Respiratory Rate 30 H 07/20/17 09:00 Blood Pressure 174/67 07/20/17 08:00 O2 Sat by Pulse Oximetry (%) 100 07/20/17 09:00 Constitutional: Yes: Well Nourished, No Distress, Calm Eyes: Yes: PERRL, Other (R Upward Lat Gaze.) HENT: Yes: WNL, Atraumatic, Normocephalic Neck: Yes: WNL, Supple, Trachea Midline Cardiovascular: Yes: WNL, Regular Rate and Rhythm Respiratory: Yes: Diminished, Mechanically Ventilated, Wheezes Gastrointestinal: Yes: Abdomen, Obese, Distention, Hyperactive Bowel Sounds ...Rectal Exam: Yes: Deferred Renal/: Yes: Rocha Present Breast(s): Yes: WNL Extremities: Yes: Other (Clubbed Fingers.) Edema: Yes Edema: LLE: 1+, RLE: 1+ Peripheral Pulses WNL: Yes Integumentary: Yes: WNL Neurological: No facial droop, not responding to pain, not gagging on suction, R pupil 2mm --> 1mm, no spontaneous movement, R foot myoclonic twitching noted CBCD WBC 16.2 K/mm3 (4.0-10.0) H 07/17/17 05:55 RBC 3.86 M/mm3 (4.00-5.60) L 07/17/17 05:55 Hgb 10.9 GM/dL (11.7-16.9) L 07/17/17 05:55 Hct 32.7 % (35.4-49) L 07/17/17 05:55 MCV 84.8 fl (80-96) 07/17/17 05:55 MCHC 33.2 g/dl (32.0-35.9) 07/17/17 05:55 RDW 17.2 % (11.9-15.9) H 07/17/17 05:55 Plt Count 203 K/MM3 (134-434) 07/17/17 05:55 MPV 10.0 fl (7.5-11.1) 07/17/17 05:55 CMP Sodium 149 mmol/L (136-145) H 07/17/17 05:55 Potassium 4.1 mmol/L (3.5-5.1) D 07/17/17 05:55 Chloride 122 mmol/L (98-107) H 07/17/17 05:55 Carbon Dioxide 13 mmol/L (21-32) L 12/08/17 05:55 Anion Gap 14 (8-16) 07/17/17 05:55 BUN 102 mg/dL (7-18) H 07/17/17 05:55 Creatinine 3.7 mg/dL (0.7-1.3) H 07/17/17 05:55 Creat Clearance w eGFR 17.56 (>60) 07/16/17 22:00 Calcium 7.2 mg/dL (8.5-10.1) L 07/17/17 05:55 Total Bilirubin 0.6 mg/dL (0.2-1.0) D 07/16/17 22:00 AST 34 U/L (15-37) 07/16/17 22:00 ALT U/L (12-78) 07/16/17 22:00 Alkaline Phosphatase 49 U/L (45-117) 07/16/17 22:00 Total Protein 5.3 g/dl (6.4-8.2) L 07/16/17 22:00 Albumin 1.9 g/dl (3.4-5.0) L 07/16/17 22:00 CT head X2 as above Plan: 56 y/o man w/ HTN, HL, DM, CKD, HIV on HAART, EF 49.5%, BIBA for SOB. Reportedly had been experiencing worsening SOB & SAMUELS w/ assoc wheezing for several days prior to admission. While in route developed further respiratory distress and in ER had agonal breathing and unresponsive. No pulse noted on stretcher transferand chest compressions were initiated. The Pt was resuscitated per ACLS protocol for approximately 5 minutes according to note, receiving epi x 2, bicarb x 2. Pt was intubated and placed on ventilator and given nebulizers and steroids. Pt admitted to the ICU s/p Cardiac Arrest and respiratory failure. The patient has been on propofol but having myoclonic twitches especially in right foot which have improved with Klonipin Given his history, this was likely myoclonic jerks 2/2 to anoxic brain injury and would not require AEDS Getting ICU care since admission klonipin 1mg twice daily added and subsided Continue Mechanical ventilation, wean as able Spiking fevers, possible central fevers, ID following Decadron discontinue today Initial CT head with cerebral edema noted and loss of balderas white differentiation Repeat CT with cortical sulci more visible and less edema, though evidence of anoxic brain injury in basal ganglia EEG confirmed patient with brain activity, mix of delta and theta, consistent with encephalopathy No significant clinical improvement thus far Family to decide on goals of care, more than 2 weeks without improvement Possibly would require trach, vent, peg vs. compassionate extubation Family to decide further today but palliative care consult placed per nurse, discussed case in detail Critical Care Time 35 mins
[2017-07-20] MEDS ORDERED: INSULIN (NOVOLOG) ASPART 100 UNITS/ML 10ML VIAL ONE (12:28)
--- NOTE | 2017-07-20 12:48 | PN ---
Progress Note, Physician History of Present Illness: Pt seen and examined at bedside. He remains in the ICU. No great change in clinical status. Pt remains intubated and is not responsive. - Current Medication List Current Medications: Active Medications Acetaminophen (Tylenol Oral Solution -) 650 mg PO Q6H PRN PRN Reason: FEVER OR PAIN Last Admin: 07/16/17 21:41 Dose: 650 mg Artificial Tears (Artificial Tears) 1 drop OU BID PRN PRN Reason: DRY EYES Carvedilol (Coreg -) 25 mg PO BID [facility] Last Admin: 07/20/17 09:14 Dose: 25 mg Dexamethasone Sodium Phosphate (Decadron Injection -) 2 mg IVPUSH BID [facility] Last Admin: 07/20/17 09:14 Dose: 2 mg Heparin Sodium (Porcine) (Heparin -) 5,000 unit SQ TID [facility] Last Admin: 07/20/17 05:11 Dose: 5,000 unit Propofol (Diprivan -) 1,000,000 mcg in 100 mls @ 2.807 mls/hr IVPB TITR PAULINE; 5 MCG/KG/MIN PRN Reason: Protocol Last Admin: 07/20/17 05:12 Dose: 50 mcg/kg/min, 28.066 mls/hr Pantoprazole Sodium 80 mg/ (Sodium Chloride) 100 mls @ 10 mls/hr IVPB Q10H [facility] PRN Reason: 8 MG/HR Last Admin: 07/20/17 11:20 Dose: 10 mls/hr Midazolam HCl 100 mg/ Sodium (Chloride) 100 mls @ 1 mls/hr IVPB TITR PAULINE; 1 MG/ HR PRN Reason: Protocol Last Admin: 07/16/17 10:27 Dose: Not Given Sodium Bicarbonate 50 meq/ (Sodium Chloride) 1,050 mls @ 83 mls/hr IV Q12H [facility] Last Admin: 07/20/17 04:13 Dose: Not Given Insulin Aspart (Novolog Vial Sliding Scale -) 1 vial SQ ACHS [facility] PRN Reason: Protocol Last Admin: 07/20/17 12:29 Dose: 6 units Insulin Detemir (Levemir Vial) 20 units SQ BID@0700,2200 [facility] Last Admin: 07/20/17 06:13 Dose: 20 units Labetalol HCl (Normodyne Injection -) 10 mg IVPUSH Q4H PRN PRN Reason: HYPERTENSION Last Admin: 07/20/17 08:48 Dose: 10 mg Sodium Bicarbonate (Sodium Bicarbonate -) 650 mg PO TID [facility] Last Admin: 07/20/17 05:49 Dose: 650 mg - Objective Vital Signs: Vital Signs Temperature 99 F 07/20/17 06:00 Pulse Rate 63 07/20/17 10:00 Respiratory Rate 28 H 07/20/17 11:44 Blood Pressure 183/69 07/20/17 10:00 O2 Sat by Pulse Oximetry (%) 100 07/20/17 10:33 Constitutional: Yes: Calm Eyes: Yes: Conjunctiva Clear Cardiovascular: Yes: S1, S2 Respiratory: Yes: Mechanically Ventilated Gastrointestinal: Yes: Soft Genitourinary: Yes: Rocha Present Musculoskeletal: Yes: Muscle Weakness Edema: No Integumentary: Yes: Tattoos Neurological: Yes: Lethargy Labs: CBC, BMP 07/20/17 06:00 07/20/17 06:00 INR, PTT INR 1.18 (0.82-1.09) H 07/06/17 05:00 - ....Imaging Chest X-ray: Report Reviewed Problem List - Problems (1) FLORECITA (acute kidney injury) Code(s): N17.9 - ACUTE KIDNEY FAILURE, UNSPECIFIED (2) CHF (congestive heart failure) Code(s): I50.9 - HEART FAILURE, UNSPECIFIED Qualifiers: Congestive heart failure type: unspecified congestive heart failure type Congestive heart failure chronicity: unspecified congestive heart failure chronicity Qualified Code(s): I50.9 - Heart failure, unspecified (3) Cardiopulmonary arrest with successful resuscitation Code(s): I46.9 - CARDIAC ARREST, CAUSE UNSPECIFIED (4) Chronic kidney disease Code(s): N18.9 - CHRONIC KIDNEY DISEASE, UNSPECIFIED (5) Hypertension Code(s): I10 - ESSENTIAL (PRIMARY) HYPERTENSION (6) Chronic kidney disease Code(s): N18.9 - CHRONIC KIDNEY DISEASE, UNSPECIFIED Assessment/Plan Current Medications Generic Name Dose Route Start Last Admin Trade Name Freq PRN Reason Stop Dose Admin Acetaminophen 650 mg 07/14/17 16:02 07/16/17 21:41 Tylenol Oral Solution - PO 650 mg Q6H PRN Administration FEVER OR PAIN Artificial Tears 1 drop 07/12/17 15:20 Artificial Tears OU BID PRN DRY EYES Carvedilol 25 mg 07/18/17 22:00 07/20/17 09:14 Coreg - PO 25 mg BID [facility] Administration Dexamethasone Sodium Phosphate 2 mg 07/17/17 09:15 07/20/17 09:14 Decadron Injection - IVPUSH 2 mg BID [facility] Administration Heparin Sodium (Porcine) 5,000 unit 07/08/17 15:30 07/20/17 05:11 Heparin - SQ 5,000 unit TID [facility] Administration Propofol 1,000,000 mcg in 100 mls @ 2.807 mls/hr 07/10/17 14:00 07/20/17 05: 12 Diprivan - IVPB 50 mcg/kg/min TITR [facility] 28.066 mls/hr Protocol Administration 5 MCG/KG/MIN Pantoprazole Sodium 80 mg/ 100 mls @ 10 mls/hr 07/10/17 19:15 07/20/17 11:20 Sodium Chloride IVPB 10 mls/hr Q10H [facility] Administration 8 MG/HR Midazolam HCl 100 mg/ Sodium 100 mls @ 1 mls/hr 07/16/17 09:30 07/16/17 10:27 Chloride IVPB Not Given TITR [facility] Protocol 1 MG/HR Sodium Bicarbonate 50 meq/ 1,050 mls @ 83 mls/hr 07/16/17 12:02 07/20/17 04: 13 Sodium Chloride IV Not Given Q12H [facility] Insulin Aspart 1 vial 07/17/17 16:30 07/20/17 12:29 Novolog Vial Sliding Scale - SQ 6 units ACHS [facility] Administration Protocol Insulin Detemir 20 units 07/17/17 22:00 07/20/17 06:13 Levemir Vial SQ 20 units BID@0700,2200 [facility] Administration Labetalol HCl 10 mg 07/09/17 11:12 07/20/17 08:48 Normodyne Injection - IVPUSH 10 mg Q4H PRN Administration HYPERTENSION Sodium Bicarbonate 650 mg 07/15/17 14:00 07/20/17 05:49 Sodium Bicarbonate - PO 650 mg TID [facility] Administration Impression 1. FLORECITA 2. CKD 3. cardiac arrest 4. CHF 5. HIV 6. hypomagnesemia 7. anoxic brain injury 8. anemia 9. hyperglycemia 10. HTN 11. acidosis Plan - renal function is improving - cont with free water, dose increased yesterday - pt is tolerating feeds so far - monitor blood pressure - family are still discussing GOC - monitor abg - steroids will contribute to elevated bun - diuretics on hold - will follow - vent support - likely ATN from hypotension during arrest, cont to monitor for recovery - cont to monitor urine output
[2017-07-20] MEDS ORDERED: SODIUM BICARBONATE IV SCH (13:00)
[2017-07-20] MEDS ORDERED: DEXTROSE IV SCH (13:00)
[2017-07-20] MEDS ORDERED: WATER IV SCH (13:00)
--- NOTE | 2017-07-20 13:12 | PN ---
Teaching Attending Note Name of Resident: Mukesh Niño ATTENDING PHYSICIAN STATEMENT I saw and evaluated the patient. I reviewed the resident's note and discussed the case with the resident. I agree with the resident's findings and plan as documented. SUBJECTIVE: Patient seen and examined in the ICU. Remains intubated and poorly responsive. No significant change in overall condition. Intake & Output 07/17/17 07/18/17 07/19/17 07/20/17 23:59 23:59 23:59 23:59 Intake Total 1720 1784 2525.3 3020.4 Output Total 3000 1500 3220 900 Balance -1280 284 -694.7 2120.4 Weight 212 lb 7 oz 215 lb 9.793 oz 216 lb 11.43 oz 212 lb 1 oz Last Vital Signs Temp Pulse Resp BP Pulse Ox 99 F 63 28 H 183/69 100 07/20/17 06:00 07/20/17 10:00 07/20/17 11:44 07/20/17 10:00 07/20/17 10:33 Active Medications Acetaminophen (Tylenol Oral Solution -) 650 mg PO Q6H PRN PRN Reason: FEVER OR PAIN Last Admin: 07/16/17 21:41 Dose: 650 mg Artificial Tears (Artificial Tears) 1 drop OU BID PRN PRN Reason: DRY EYES Carvedilol (Coreg -) 25 mg PO BID [facility] Last Admin: 07/20/17 09:14 Dose: 25 mg Dexamethasone Sodium Phosphate (Decadron Injection -) 2 mg IVPUSH BID [facility] Last Admin: 07/20/17 09:14 Dose: 2 mg Heparin Sodium (Porcine) (Heparin -) 5,000 unit SQ TID [facility] Last Admin: 07/20/17 05:11 Dose: 5,000 unit Propofol (Diprivan -) 1,000,000 mcg in 100 mls @ 2.807 mls/hr IVPB TITR PAULINE; 5 MCG/KG/MIN PRN Reason: Protocol Last Admin: 07/20/17 05:12 Dose: 50 mcg/kg/min, 28.066 mls/hr Pantoprazole Sodium 80 mg/ (Sodium Chloride) 100 mls @ 10 mls/hr IVPB Q10H [facility] PRN Reason: 8 MG/HR Last Admin: 07/20/17 11:20 Dose: 10 mls/hr Midazolam HCl 100 mg/ Sodium (Chloride) 100 mls @ 1 mls/hr IVPB TITR PAULINE; 1 MG/ HR PRN Reason: Protocol Last Admin: 07/16/17 10:27 Dose: Not Given Sodium Bicarbonate 75 meq/ (Dextrose) 1,000 mls @ 60 mls/hr IV .[id number] [facility] Insulin Aspart (Novolog Vial Sliding Scale -) 1 vial SQ ACHS [facility] PRN Reason: Protocol Last Admin: 07/20/17 12:29 Dose: 6 units Insulin Detemir (Levemir Vial) 20 units SQ BID@0700,2200 [facility] Last Admin: 07/20/17 06:13 Dose: 20 units Labetalol HCl (Normodyne Injection -) 10 mg IVPUSH Q4H PRN PRN Reason: HYPERTENSION Last Admin: 07/20/17 08:48 Dose: 10 mg Sodium Bicarbonate (Sodium Bicarbonate -) 650 mg PO TID [facility] Last Admin: 07/20/17 05:49 Dose: 650 mg Gen: Intubated, poorly responsive Heart: RRR Lung: scattered rhonchi Abd: soft, nontender Ext: (+) edema Laboratory Results - last 24 hr 07/16/17 07/16/17 07/17/17 21:21 23:08 00:48 WBC RBC Hgb Hct MCV MCH MCHC RDW Plt Count MPV Neutrophils % Lymphocytes % Monocytes % Eosinophils % Basophils % Sodium Potassium Chloride Carbon Dioxide Anion Gap BUN Creatinine Creat Clearance w eGFR POC Glucometer 344.03184 395.08112 [phone] Random Glucose Calcium Phosphorus Magnesium Total Bilirubin AST ALT Alkaline Phosphatase Total Protein Albumin 07/17/17 07/17/17 07/17/17 03:23 05:12 06:39 WBC RBC Hgb Hct MCV MCH MCHC RDW Plt Count MPV Neutrophils % Lymphocytes % Monocytes % Eosinophils % Basophils % Sodium Potassium Chloride Carbon Dioxide Anion Gap BUN Creatinine Creat Clearance w eGFR POC Glucometer 252.43633 205.33879 179.89013 Random Glucose Calcium Phosphorus Magnesium Total Bilirubin AST ALT Alkaline Phosphatase Total Protein Albumin 07/17/17 07/17/17 07/17/17 07:55 10:36 11:44 WBC RBC Hgb Hct MCV MCH MCHC RDW Plt Count MPV Neutrophils % Lymphocytes % Monocytes % Eosinophils % Basophils % Sodium Potassium Chloride Carbon Dioxide Anion Gap BUN Creatinine Creat Clearance w eGFR POC Glucometer 185.50199 215.00192 229.50346 Random Glucose Calcium Phosphorus Magnesium Total Bilirubin AST ALT Alkaline Phosphatase Total Protein Albumin 07/17/17 07/17/17 07/17/17 13:53 15:30 17:20 WBC RBC Hgb Hct MCV MCH MCHC RDW Plt Count MPV Neutrophils % Lymphocytes % Monocytes % Eosinophils % Basophils % Sodium Potassium Chloride Carbon Dioxide Anion Gap BUN Creatinine Creat Clearance w eGFR POC Glucometer 266.51110 238.06054 [phone] Random Glucose Calcium Phosphorus Magnesium Total Bilirubin AST ALT Alkaline Phosphatase Total Protein Albumin 07/17/17 07/18/17 07/18/17 22:15 05:49 14:03 WBC RBC Hgb Hct MCV MCH MCHC RDW Plt Count MPV Neutrophils % Lymphocytes % Monocytes % Eosinophils % Basophils % Sodium Potassium Chloride Carbon Dioxide Anion Gap BUN Creatinine Creat Clearance w eGFR POC Glucometer 285.09000 171.61976 181.85249 Random Glucose Calcium Phosphorus Magnesium Total Bilirubin AST ALT Alkaline Phosphatase Total Protein Albumin 07/18/17 07/18/17 07/19/17 16:58 22:31 05:47 WBC RBC Hgb Hct MCV MCH MCHC RDW Plt Count MPV Neutrophils % Lymphocytes % Monocytes % Eosinophils % Basophils % Sodium Potassium Chloride Carbon Dioxide Anion Gap BUN Creatinine Creat Clearance w eGFR POC Glucometer 224.41557 272.54844 [phone] Random Glucose Calcium Phosphorus Magnesium Total Bilirubin AST ALT Alkaline Phosphatase Total Protein Albumin 07/19/17 07/19/17 07/19/17 12:15 15:45 21:04 WBC RBC Hgb Hct MCV MCH MCHC RDW Plt Count MPV Neutrophils % Lymphocytes % Monocytes % Eosinophils % Basophils % Sodium Potassium Chloride Carbon Dioxide Anion Gap BUN Creatinine Creat Clearance w eGFR POC Glucometer 290.52914 293.21517 280.49484 Random Glucose Calcium Phosphorus Magnesium Total Bilirubin AST ALT Alkaline Phosphatase Total Protein Albumin 07/20/17 07/20/17 06:00 06:00 WBC 12.5 H RBC 3.17 L Hgb 8.8 L Hct 26.9 L MCV 84.8 MCH 27.9 MCHC 32.9 RDW 17.5 H Plt Count 135 MPV 10.7 Neutrophils % 73.6 Lymphocytes % 15.2 Monocytes % 8.0 Eosinophils % 2.3 Basophils % 0.9 Sodium 152 H Potassium 3.0 L Chloride 127 H Carbon Dioxide 12 L Anion Gap 13 BUN 67 H D Creatinine 2.3 H Creat Clearance w eGFR 29.46 POC Glucometer Random Glucose 297 H Calcium 6.6 L* Phosphorus 3.1 D Magnesium 1.8 Total Bilirubin 0.6 AST 46 H D ALT 53 D Alkaline Phosphatase 73 D Total Protein 5.3 L Albumin 1.8 L IMP: S/P Cardiopulmonary Arrest Likely Anoxic Brain Injury Acute on Chronic Systolic Heart Failure +Troponins Acute on Chronic Renal Failure Lactic Acidosis resolved HTN HIV Hep C Smoker - completed empiric antibiotics - monitor urine output, creatinine - Daily sedation vacations to assess mental status - Taper FiO2 to keep SpO2 >90% - Wean trials as tolerated - Enteral feeds - DVT/GI prophylaxis - poor overall prognosis for meaningful recovery, had discussed with daughter, she had stated that pt would not want to be kept alive without quality of life, awaiting decision from family Dr Glez Critical care time spent in reviewing chart, evaluating patient and formulating plan 40 min
[2017-07-20] MEDS ORDERED: CALCIUM GLUCONATE 10% - 1,000 MG/10 ML VIAL IVPB ONE (15:14)
--- NOTE | 2017-07-20 15:15 | PN ---
Physical Exam: SUBJECTIVE: Patient seen and examined at bedside. Pt made DNR. Topic of compassionate extubation was broached with pt's daughter who is the primary decision maker. She would like to speak with the pt's family and make a decision together. Afebrile. hemodynamically stable. OBJECTIVE: Vital Signs Period Temp Pulse Resp BP Sys/[place] Pulse Ox Last 24 Hr 98.7 F-99.2 F 61-66 20-30 158-184/64-77 100-100 No change. GENERAL: Intubated and sedated. HEAD: Normal with no signs of trauma. EYES: sclera anicteric, conjunctiva clear. No ptosis. ENT: oropharynx clear without exudates, moist mucous membranes. NECK: Trachea midline, full range of motion, supple. LUNGS: Breath sounds equal, clear to auscultation bilaterally, no wheezes, no crackles, no accessory muscle use. HEART: Regular rate and rhythm, S1, S2 without murmur, rub or gallop. ABDOMEN: Soft, nondistended, normoactive bowel sounds, no guarding, no rebound, no hepatosplenomegaly, no masses. EXTREMITIES: 2+ pulses, warm, well-perfused, no edema. NEUROLOGICAL: Intubated and sedated PSYCH: Intubated and sedated SKIN: Warm, dry, normal turgor, no rashes or lesions noted Laboratory Results - last 24 hr 07/16/17 07/16/17 07/17/17 21:21 23:08 00:48 WBC RBC Hgb Hct MCV MCH MCHC RDW Plt Count MPV Neutrophils % Lymphocytes % Monocytes % Eosinophils % Basophils % Sodium Potassium Chloride Carbon Dioxide Anion Gap BUN Creatinine Creat Clearance w eGFR POC Glucometer 344.47505 395.06004 [phone] Random Glucose Calcium Phosphorus Magnesium Total Bilirubin AST ALT Alkaline Phosphatase Total Protein Albumin 07/17/17 07/17/17 07/17/17 03:23 05:12 06:39 WBC RBC Hgb Hct MCV MCH MCHC RDW Plt Count MPV Neutrophils % Lymphocytes % Monocytes % Eosinophils % Basophils % Sodium Potassium Chloride Carbon Dioxide Anion Gap BUN Creatinine Creat Clearance w eGFR POC Glucometer 252.80727 205.07836 179.52471 Random Glucose Calcium Phosphorus Magnesium Total Bilirubin AST ALT Alkaline Phosphatase Total Protein Albumin 07/17/17 07/17/17 07/17/17 07:55 10:36 11:44 WBC RBC Hgb Hct MCV MCH MCHC RDW Plt Count MPV Neutrophils % Lymphocytes % Monocytes % Eosinophils % Basophils % Sodium Potassium Chloride Carbon Dioxide Anion Gap BUN Creatinine Creat Clearance w eGFR POC Glucometer 185.12720 215.23215 229.13797 Random Glucose Calcium Phosphorus Magnesium Total Bilirubin AST ALT Alkaline Phosphatase Total Protein Albumin 07/17/17 07/17/17 07/17/17 13:53 15:30 17:20 WBC RBC Hgb Hct MCV MCH MCHC RDW Plt Count MPV Neutrophils % Lymphocytes % Monocytes % Eosinophils % Basophils % Sodium Potassium Chloride Carbon Dioxide Anion Gap BUN Creatinine Creat Clearance w eGFR POC Glucometer 266.73231 238.37345 [phone] Random Glucose Calcium Phosphorus Magnesium Total Bilirubin AST ALT Alkaline Phosphatase Total Protein Albumin 07/17/17 07/18/17 07/18/17 22:15 05:49 14:03 WBC RBC Hgb Hct MCV MCH MCHC RDW Plt Count MPV Neutrophils % Lymphocytes % Monocytes % Eosinophils % Basophils % Sodium Potassium Chloride Carbon Dioxide Anion Gap BUN Creatinine Creat Clearance w eGFR POC Glucometer 285.09111 171.14435 181.95449 Random Glucose Calcium Phosphorus Magnesium Total Bilirubin AST ALT Alkaline Phosphatase Total Protein Albumin 07/18/17 07/18/17 07/19/17 16:58 22:31 05:47 WBC RBC Hgb Hct MCV MCH MCHC RDW Plt Count MPV Neutrophils % Lymphocytes % Monocytes % Eosinophils % Basophils % Sodium Potassium Chloride Carbon Dioxide Anion Gap BUN Creatinine Creat Clearance w eGFR POC Glucometer 224.08183 272.40850 123.11140 Random Glucose Calcium Phosphorus Magnesium Total Bilirubin AST ALT Alkaline Phosphatase Total Protein Albumin 07/19/17 07/19/17 07/19/17 12:15 15:45 21:04 WBC RBC Hgb Hct MCV MCH MCHC RDW Plt Count MPV Neutrophils % Lymphocytes % Monocytes % Eosinophils % Basophils % Sodium Potassium Chloride Carbon Dioxide Anion Gap BUN Creatinine Creat Clearance w eGFR POC Glucometer 290.36662 293.59354 280.52118 Random Glucose Calcium Phosphorus Magnesium Total Bilirubin AST ALT Alkaline Phosphatase Total Protein Albumin 07/20/17 07/20/17 07/20/17 06:00 06:00 12:23 WBC 12.5 H RBC 3.17 L Hgb 8.8 L Hct 26.9 L MCV 84.8 MCH 27.9 MCHC 32.9 RDW 17.5 H Plt Count 135 MPV 10.7 Neutrophils % 73.6 Lymphocytes % 15.2 Monocytes % 8.0 Eosinophils % 2.3 Basophils % 0.9 Sodium 152 H Potassium 3.0 L Chloride 127 H Carbon Dioxide 12 L Anion Gap 13 BUN 67 H D Creatinine 2.3 H Creat Clearance w eGFR 29.46 POC Glucometer 273.15668 Random Glucose 297 H Calcium 6.6 L* Phosphorus 3.1 D Magnesium 1.8 Total Bilirubin 0.6 AST 46 H D ALT 53 D Alkaline Phosphatase 73 D Total Protein 5.3 L Albumin 1.8 L Active Medications Generic Name Dose Route Start Last Admin Trade Name Freq PRN Reason Stop Dose Admin Acetaminophen 650 mg 07/14/17 16:02 07/16/17 21:41 Tylenol Oral Solution - PO 650 mg Q6H PRN Administration FEVER OR PAIN Artificial Tears 1 drop 07/12/17 15:20 Artificial Tears OU BID PRN DRY EYES Carvedilol 25 mg 07/18/17 22:00 07/20/17 09:14 Coreg - PO 25 mg BID PAULINE Administration Dexamethasone Sodium Phosphate 2 mg 07/17/17 09:15 07/20/17 09:14 Decadron Injection - IVPUSH 2 mg BID PAULINE Administration Heparin Sodium (Porcine) 5,000 unit 07/08/17 15:30 07/20/17 05:11 Heparin - SQ 5,000 unit TID PAULINE Administration Propofol 1,000,000 mcg in 100 mls @ 2.807 mls/hr 07/10/17 14:00 07/20/17 05: 12 Diprivan - IVPB 50 mcg/kg/min TITR PAULINE 28.066 mls/hr Protocol Administration 5 MCG/KG/MIN Pantoprazole Sodium 80 mg/ 100 mls @ 10 mls/hr 07/10/17 19:15 07/20/17 11:20 Sodium Chloride IVPB 10 mls/hr Q10H PAULINE Administration 8 MG/HR Midazolam HCl 100 mg/ Sodium 100 mls @ 1 mls/hr 07/16/17 09:30 07/16/17 10:27 Chloride IVPB Not Given TITR PAULINE Protocol 1 MG/HR Sodium Bicarbonate 75 meq/ 1,000 mls @ 60 mls/hr 07/20/17 13:39 Dextrose IV ASDIR PA[facility]INE Insulin Aspart 1 vial 07/17/17 16:30 07/20/17 12:29 Novolog Vial Sliding Scale - SQ 6 units ACHS PAULINE Administration Protocol Insulin Detemir 20 units 07/17/17 22:00 07/20/17 06:13 Levemir Vial SQ 20 units BID@0700,2200 PA[facility] Administration Labetalol HCl 10 mg 07/09/17 11:12 07/20/17 08:48 Normodyne Injection - IVPUSH 10 mg Q4H PRN Administration HYPERTENSION Sodium Bicarbonate 650 mg 07/15/17 14:00 07/20/17 05:49 Sodium Bicarbonate - PO 650 mg TID PAULINE Administration ASSESSMENT/PLAN: Pt is a 56 M w/ PMH HTN, HL, DM, CKD, and HIV on HAART who presented to ED with cardiopulmonary arrest. Pt is now intubated and sedated. Prior to arriving at the ED, pt had been complaining of wheezing and SOB. On arriving in ED, pt was in arrest and was coded for 5 min. Cardio #RAVEN for at least 5 min -intubatedardiopulmonary arrest -pt was coded in -Echo showed moderate-severe LV dysfunction -Tn peak at 1.33. Per Cardio, Tn is combination of demand & sepsis -holding Lasix at this time Neuro #Anoxic brain injury -Neuro on board -Pt was down and coded for several minutes -now exhibiting myoclonic jerks -holding klonopin -per Radiologist Dr. Estrada, Head CT revealed loss of balderas/white junction, and sulcal effacement, but no sign of herniation. -Decadron d/c'ed today -EEG abnormal -holding sedation ID -HIV positive -pt sees Dr. 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 Hypokalemia. Hypocalcemia. Repleting -Intubated sedated PPx -Hep SubQ Dispo -admitted to ICU Mukesh Niño MD PGY-1, ICU Visit type - Emergency Visit Emergency Visit: No - New Patient This patient is new to me today: No - Critical Care Critical Care patient: Yes Total Critical Care Time (in minutes): 38 Critical Care Statement: The care of this patient involved high complexity decision making to prevent further life threatening deterioration of the patient 's condition and/or to evaluate & treat vital organ system(s) failure or risk of failure. - Discharge Referral Referred to [facility] No
[2017-07-20] MEDS: DEXTROSE 5% IV SCH (15:19)
[2017-07-20] MEDS: WATER IV SCH (15:19)
[2017-07-20] MEDS: SODIUM BICARBONATE IV SCH (15:19)
--- NOTE | 2017-07-20 22:53 | PN ---
Progress Note, Physician - Current Medication List Current Medications: Active Medications Acetaminophen (Tylenol Oral Solution -) 650 mg PO Q6H PRN PRN Reason: FEVER OR PAIN Last Admin: 07/16/17 21:41 Dose: 650 mg Artificial Tears (Artificial Tears) 1 drop OU BID PRN PRN Reason: DRY EYES Carvedilol (Coreg -) 25 mg PO BID [facility] Last Admin: 07/20/17 21:30 Dose: 25 mg Heparin Sodium (Porcine) (Heparin -) 5,000 unit SQ TID [facility] Last Admin: 07/20/17 21:30 Dose: 5,000 unit Propofol (Diprivan -) 1,000,000 mcg in 100 mls @ 2.807 mls/hr IVPB TITR PAULINE; 5 MCG/KG/MIN PRN Reason: Protocol Last Admin: 07/20/17 19:37 Dose: 50 mcg/kg/min, 28.066 mls/hr Pantoprazole Sodium 80 mg/ (Sodium Chloride) 100 mls @ 10 mls/hr IVPB Q10H PA[facility] PRN Reason: 8 MG/HR Last Admin: 07/20/17 11:20 Dose: 10 mls/hr Midazolam HCl 100 mg/ Sodium (Chloride) 100 mls @ 1 mls/hr IVPB TITR PAULINE; 1 MG/ HR PRN Reason: Protocol Last Admin: 07/16/17 10:27 Dose: Not Given Sodium Bicarbonate 75 meq/ (Dextrose) 1,000 mls @ 60 mls/hr IV ASDIR [facility] Last Admin: 07/20/17 15:19 Dose: 60 mls/hr Insulin Aspart (Novolog Vial Sliding Scale -) 1 vial SQ ACHS [facility] PRN Reason: Protocol Last Admin: 07/20/17 22:20 Dose: 6 units Insulin Detemir (Levemir Vial) 20 units SQ BID@0700,2200 [facility] Last Admin: 07/20/17 22:19 Dose: 20 units Labetalol HCl (Normodyne Injection -) 10 mg IVPUSH Q4H PRN PRN Reason: HYPERTENSION Last Admin: 07/20/17 08:48 Dose: 10 mg Sodium Bicarbonate (Sodium Bicarbonate -) 650 mg PO TID [facility] Last Admin: 07/20/17 21:30 Dose: 650 mg - Objective Vital Signs: Vital Signs Temperature 99.1 F 07/20/17 14:00 Pulse Rate 64 07/20/17 20:19 Respiratory Rate 27 H 07/20/17 22:25 Blood Pressure 184/74 07/20/17 20:19 O2 Sat by Pulse Oximetry (%) 100 07/20/17 19:44 Labs: CBC, BMP 07/20/17 06:00 07/20/17 06:00 INR, PTT INR 1.18 (0.82-1.09) H 07/06/17 05:00 Problem List - Problems (1) Respiratory failure Code(s): J96.90 - RESPIRATORY FAILURE, UNSP, UNSP W HYPOXIA OR HYPERCAPNIA (2) Cardiopulmonary arrest with successful resuscitation Code(s): I46.9 - CARDIAC ARREST, CAUSE UNSPECIFIED (3) Uncontrolled diabetes mellitus Code(s): E11.65 - TYPE 2 DIABETES MELLITUS WITH HYPERGLYCEMIA (4) Acute on chronic diastolic CHF (congestive heart failure) Code(s): I50.33 - ACUTE ON CHRONIC DIASTOLIC (CONGESTIVE) HEART FAILURE
[2017-07-21] MEDS: PANTOPRAZOLE SODIUM 80 MG in SODIUM CHLORIDE 100 ML IVPB SCH ×3 (03:04→15:00)
[2017-07-21] MEDS: PROPOFOL 1,000,000 MCG/100 ML VIAL IVPB SCH ×3 (03:06→14:00)
[2017-07-21] MEDS: SODIUM BICARBONATE 650 MG TABLET PO SCH ×3 (05:28→22:06)
[2017-07-21] MEDS: INSULIN SLIDING SCALE (NOVOLOG) 1 VIAL SQ SCH ×4 (06:13→22:17)
[2017-07-21] MEDS: INSULIN DETEMIR 100 UNITS/ML MDV SQ SCH ×2 (06:14→22:16)
[2017-07-21 06:31] LABS: BASO % 0.9 % (0-2.0); EOS % 2.7 % (0-4.5); MCHC 32.6 g/dl (32.0-35.9); MEAN CELL VOLUME 85.9 fl (80-96); MEAN PLT VOLUME 10.5 fl (7.5-11.1); NEUT % 72.2 % (42.8-82.8); PLATELET COUNT 128 K/MM3 (134-434); RDW 17.9 % (11.9-15.9)
[2017-07-21] MEDS: WATER IV SCH ×2 (06:31→13:26)
[2017-07-21] MEDS: DEXTROSE 5% IV SCH ×2 (06:31→13:26)
[2017-07-21] MEDS: SODIUM BICARBONATE IV SCH ×2 (06:31→13:26)
[2017-07-21 06:52] LABS: ALBUMIN 1.7 g/dl (3.4-5.0); ANION GAP 13 (8-16); CO2 14 mmol/L (21-32); CREATININE 2.1 mg/dL (0.7-1.3); GLUCOSE,RANDOM 294 mg/dL (74-106); SGOT/AST 53 U/L (15-37); SGPT/ALT 55 U/L (12-78)
[2017-07-21 06:54] LABS: ALK PHOS 90 U/L (45-117); BILIRUBIN,TOTAL 0.8 mg/dL (0.2-1.0)
[2017-07-21 07:13] LABS: CALCIUM 6.4 mg/dL (8.5-10.1)
[2017-07-21] MEDS: CARVEDILOL 25 MG TABLET (FP) PO SCH ×2 (09:32→22:05)
--- NOTE | 2017-07-21 09:58 | PN ---
Progress Note (short form) - Note Progress Note: Neurology History of Present Illness: Mr. Welch is a 56 y/o man w/ HTN, HL, DM, CKD, HIV on HAART, EF 49.5%, BIBA for SOB. Reportedly had been experiencing worsening SOB & SAMUELS w/ assoc wheezing for several days prior to admission. While in route developed further respiratory distress and in ER had agonal breathing and unresponsive. No pulse noted on stretcher transferand chest compressions were initiated. The Pt was resuscitated per ACLS protocol for approximately 5 minutes according to note, receiving epi x 2, bicarb x 2. Pt was intubated and placed on ventilator and given nebulizers and steroids. Pt admitted to the ICU s/p Cardiac Arrest and respiratory failure. The patient has been on propofol but having myoclonic twitches especially in right foot. Given his history, this is likely myoclonic jerks 2/2 to anoxic brain injury. Klonipin was started, twitching improved and not visible at this time. There is minimal pupil contriction from 3mm to 2mm and therefore does not meet criteria for brain . However, only minimal brainstem activity and no significant improvement thus far. EEG completed, showed mix of theta and beta activity, consistent with encephalopathy. Again, not brain . CT head completed and showed cerebral edema, repeated and showed improved cerebral edema likely due to steroids given. Clinically without signficiant improvement. Spoke to resident about tapering Decadron yesterday and was to be cut in half each day. Attempts to wean propofol led to tachycardia and tachypnea. Patient being considered for palliative care as he has had no significant improvements and remains in ICU dependent on vent. They would not want to pursue trach and nursing home vent as well as PEG for maintain of life. Awaiting family decision on plan for care. Active Medications Acetaminophen (Tylenol Oral Solution -) 650 mg PO Q6H PRN PRN Reason: FEVER OR PAIN Last Admin: 07/16/17 21:41 Dose: 650 mg Artificial Tears (Artificial Tears) 1 drop OU BID PRN PRN Reason: DRY EYES Carvedilol (Coreg -) 25 mg PO BID PAULINE Last Admin: 07/21/17 09:32 Dose: 25 mg Propofol (Diprivan -) 1,000,000 mcg in 100 mls @ 2.807 mls/hr IVPB TITR PAULINE; 5 MCG/KG/MIN PRN Reason: Protocol Last Admin: 07/21/17 06:31 Dose: 50 mcg/kg/min, 28.066 mls/hr Pantoprazole Sodium 80 mg/ (Sodium Chloride) 100 mls @ 10 mls/hr IVPB Q10H PAULINE PRN Reason: 8 MG/HR Last Admin: 07/21/17 05:29 Dose: Not Given Midazolam HCl 100 mg/ Sodium (Chloride) 100 mls @ 1 mls/hr IVPB TITR PAULINE; 1 MG/ HR PRN Reason: Protocol Last Admin: 07/16/17 10:27 Dose: Not Given Sodium Bicarbonate 75 meq/ (Dextrose) 1,000 mls @ 60 mls/hr IV ASDIR [facility] Last Admin: 07/21/17 06:31 Dose: 60 mls/hr Insulin Aspart (Novolog Vial Sliding Scale -) 1 vial SQ ACHS PAULINE PRN Reason: Protocol Last Admin: 07/21/17 06:13 Dose: 6 units Insulin Detemir (Levemir Vial) 20 units SQ BID@0700,2200 [facility] Last Admin: 07/21/17 06:14 Dose: 20 units Labetalol HCl (Normodyne Injection -) 10 mg IVPUSH Q4H PRN PRN Reason: HYPERTENSION Last Admin: 07/20/17 08:48 Dose: 10 mg Sodium Bicarbonate (Sodium Bicarbonate -) 650 mg PO TID [facility] Last Admin: 07/21/17 05:28 Dose: 650 mg Physical Exam Vital Signs Temperature 98.8 F 07/21/17 06:00 Pulse Rate 88 07/21/17 09:53 Respiratory Rate 26 H 07/21/17 09:53 Blood Pressure 140/69 07/21/17 09:53 O2 Sat by Pulse Oximetry (%) 100 07/21/17 00:58 Constitutional: Yes: Well Nourished, No Distress, Calm Eyes: Yes: PERRL, Other (R Upward Lat Gaze.) HENT: Yes: WNL, Atraumatic, Normocephalic Neck: Yes: WNL, Supple, Trachea Midline Cardiovascular: Yes: WNL, Regular Rate and Rhythm Respiratory: Yes: Diminished, Mechanically Ventilated, Wheezes Gastrointestinal: Yes: Abdomen, Obese, Distention, Hyperactive Bowel Sounds ...Rectal Exam: Yes: Deferred Renal/: Yes: Rocha Present Breast(s): Yes: WNL Extremities: Yes: Other (Clubbed Fingers.) Edema: Yes Edema: LLE: 1+, RLE: 1+ Peripheral Pulses WNL: Yes Integumentary: Yes: WNL Neurological: No facial droop, not responding to pain, not gagging on suction, R pupil 2mm --> 1mm, no spontaneous movement, R foot myoclonic twitching noted CBCD WBC 13.0 K/mm3 (4.0-10.0) H 07/21/17 06:05 RBC 3.16 M/mm3 (4.00-5.60) L 07/21/17 06:05 Hgb 8.8 GM/dL (11.7-16.9) L 07/21/17 06:05 Hct 27.2 % (35.4-49) L 07/21/17 06:05 MCV 85.9 fl (80-96) 07/21/17 06:05 MCHC 32.6 g/dl (32.0-35.9) 07/21/17 06:05 RDW 17.9 % (11.9-15.9) H 07/21/17 06:05 Plt Count 128 K/MM3 (134-434) L 07/21/17 06:05 MPV 10.5 fl (7.5-11.1) 07/21/17 06:05 CMP Sodium 149 mmol/L (136-145) H 07/21/17 06:05 Potassium 3.0 mmol/L (3.5-5.1) L 07/21/17 06:05 Chloride 122 mmol/L (98-107) H 07/21/17 06:05 Carbon Dioxide 14 mmol/L (21-32) L 07/21/17 06:05 Anion Gap 13 (8-16) 07/21/17 06:05 BUN 54 mg/dL (7-18) H 07/21/17 06:05 Creatinine 2.1 mg/dL (0.7-1.3) H 07/21/17 06:05 Creat Clearance w eGFR 32.72 (>60) 07/21/17 06:05 Calcium 6.4 mg/dL (8.5-10.1) L* 07/21/17 06:05 Total Bilirubin 0.8 mg/dL (0.2-1.0) D 07/21/17 06:05 AST 53 U/L (15-37) H 07/21/17 06:05 ALT 55 U/L (12-78) 07/21/17 06:05 Alkaline Phosphatase 90 U/L (45-117) D 07/21/17 06:05 Total Protein 5.0 g/dl (6.4-8.2) L 07/21/17 06:05 Albumin 1.7 g/dl (3.4-5.0) L 07/21/17 06:05 CT head X2 as above Plan: 56 y/o man w/ HTN, HL, DM, CKD, HIV on HAART, EF 49.5%, BIBA for SOB. Reportedly had been experiencing worsening SOB & SAMUELS w/ assoc wheezing for several days prior to admission. While in route developed further respiratory distress and in ER had agonal breathing and unresponsive. No pulse noted on stretcher transferand chest compressions were initiated. The Pt was resuscitated per ACLS protocol for approximately 5 minutes according to note, receiving epi x 2, bicarb x 2. Pt was intubated and placed on ventilator and given nebulizers and steroids. Pt admitted to the ICU s/p Cardiac Arrest and respiratory failure. The patient has been on propofol but having myoclonic twitches especially in right foot which have improved with Klonipin Given his history, this was likely myoclonic jerks 2/2 to anoxic brain injury and would not require AEDS Getting ICU care since admission klonipin 1mg twice daily added and subsided Continue Mechanical ventilation, wean as able Spiking fevers, possible central fevers, ID following Decadron discontinued yesterday Initial CT head with cerebral edema noted and loss of balderas white differentiation Repeat CT with cortical sulci more visible and less edema, though evidence of anoxic brain injury in basal ganglia EEG confirmed patient with brain activity, mix of delta and theta, consistent with encephalopathy No significant clinical improvement thus far Family to decide on goals of care, more than 2 weeks without improvement Possibly would require trach, vent, peg vs. compassionate extubation Family to decide further but palliative care Critical Care Time 35 mins
[2017-07-21] MEDS ORDERED: INSULIN (NOVOLOG) ASPART 100 UNITS/ML 10ML VIAL ONE ×3 (10:26→16:32)
--- NOTE | 2017-07-21 10:45 | PN ---
Progress Note (short form) - Note Progress Note: Chief Complaint: PEA arrest, resp failure History of Present Illness: intubated/sedated, no agitation or tachypnea. bp remains elevated. platelets down today. hypernatremia, bun/cr improved today. repeat cxr with no new pulmonary pathology. GOC discussions ongoing. Current Medications Acetaminophen (Tylenol Oral Solution -) 650 mg PO Q6H PRN PRN Reason: FEVER OR PAIN Last Admin: 07/16/17 21:41 Dose: 650 mg Artificial Tears (Artificial Tears) 1 drop OU BID PRN PRN Reason: DRY EYES Carvedilol (Coreg -) 25 mg PO BID PAULINE Last Admin: 07/21/17 09:32 Dose: 25 mg Propofol (Diprivan -) 1,000,000 mcg in 100 mls @ 2.807 mls/hr IVPB TITR PAULINE; 5 MCG/KG/MIN PRN Reason: Protocol Last Admin: 07/21/17 06:31 Dose: 50 mcg/kg/min, 28.066 mls/hr Pantoprazole Sodium 80 mg/ (Sodium Chloride) 100 mls @ 10 mls/hr IVPB Q10H PAULINE PRN Reason: 8 MG/HR Last Admin: 07/21/17 05:29 Dose: Not Given Midazolam HCl 100 mg/ Sodium (Chloride) 100 mls @ 1 mls/hr IVPB TITR PAULINE; 1 MG/ HR PRN Reason: Protocol Last Admin: 07/16/17 10:27 Dose: Not Given Sodium Bicarbonate 75 meq/ (Dextrose) 1,000 mls @ 60 mls/hr IV ASDIR [facility] Last Admin: 07/21/17 06:31 Dose: 60 mls/hr Insulin Aspart (Novolog Vial Sliding Scale -) 1 vial SQ ACHS PAULINE PRN Reason: Protocol Last Admin: 07/21/17 10:26 Dose: 6 units Insulin Detemir (Levemir Vial) 20 units SQ BID@0700,2200 [facility] Last Admin: 07/21/17 06:14 Dose: 20 units Labetalol HCl (Normodyne Injection -) 10 mg IVPUSH Q4H PRN PRN Reason: HYPERTENSION Last Admin: 07/20/17 08:48 Dose: 10 mg Sodium Bicarbonate (Sodium Bicarbonate -) 650 mg PO TID [facility] Last Admin: 07/21/17 05:28 Dose: 650 mg - Objective Vital Signs: Vital Signs - 24 hr 07/20/17 07/20/17 07/20/17 11:44 14:00 14:17 Temperature 99.1 F Pulse Rate 62 Respiratory 28 H 27 H 29 H Rate Blood Pressure 166/65 O2 Sat by Pulse Oximetry (%) 07/20/17 07/20/17 07/20/17 17:35 18:00 19:24 Temperature Pulse Rate 69 Respiratory 29 H 27 H 29 H Rate Blood Pressure 176/69 O2 Sat by Pulse Oximetry (%) 07/20/17 07/20/17 07/20/17 19:44 20:19 22:00 Temperature Pulse Rate 64 70 Respiratory 26 H 26 H 26 H Rate Blood Pressure 184/74 161/83 O2 Sat by Pulse 100 Oximetry (%) 07/20/17 07/20/17 07/21/17 22:25 22:35 00:00 Temperature 98.6 F Pulse Rate 73 Respiratory 27 H 26 H Rate Blood Pressure 156/76 O2 Sat by Pulse Oximetry (%) 07/21/17 07/21/17 07/21/17 00:58 02:00 03:32 Temperature 100.1 F H Pulse Rate 71 75 Respiratory 29 H 26 H 27 H Rate Blood Pressure 164/71 O2 Sat by Pulse 100 Oximetry (%) 07/21/17 07/21/17 07/21/17 03:59 06:00 06:53 Temperature 98.8 F Pulse Rate 70 86 Respiratory 28 H 26 H 30 H Rate Blood Pressure 152/70 171/68 O2 Sat by Pulse Oximetry (%) 07/21/17 07/21/17 09:00 10:00 Temperature 100.2 F H Pulse Rate 88 Respiratory 26 H 26 H Rate Blood Pressure 140/69 O2 Sat by Pulse 100 Oximetry (%) Intake & Output 07/19/17 07/20/17 07/21/17 07/22/17 07:59 07:59 07:59 07:59 Intake Total 1486.3 4479.4 5202.4 Output Total 1900 3220 3400 Balance -413.7 1259.4 1802.4 Weight 216 lb 11.43 oz 212 lb 1 oz 219 lb 4 oz Constitutional: Yes: Well Nourished, No Distress, intubated, sedated. Eyes: No: Sclera Icterus Respiratory: Yes: mechanical breath sounds (anteriorly (pt intubated)). No: Accessory Muscle Use, Rales, Wheezes Gastrointestinal: Yes: Normal Bowel Sounds. No: Distention, Hepatomegaly, Palpable Mass, Tenderness Cardiovascular: Yes: Regular Rate and Rhythm. PMI ND. JVD: No Heart Sounds: Yes: S1, S2. No: Gallop Murmur: No: Systolic Murmur, Diastolic Murmurs) Extremities: No: Cool (feet), Cyanosis Edema: diffuse edema Integumentary: No: Jaundice Neurological: No: sedated Psychiatric: No: Agitated Labs: CBC, BMP 07/21/17 06:05 07/21/17 06:05 Laboratory Tests 07/20/17 07/20/17 07/21/17 06:00 06:00 06:05 Plt Count 135 Total Bilirubin 0.6 0.8 D AST 46 H D 53 H ALT 53 D 55 Alkaline Phosphatase 73 D 90 D Albumin 1.7 L - ....Imaging EKG: Other (tele: NSR) Assessment/Plan cxr 07/21: lung campos remain clear. MPI 05/26: no ischemia, EF 33% (global Echo 06/2017: nl lv size. LV fn mod-sev reduced (global). nl rv size/fn. 1+ mac/mr/tr. rvsp 30-40. + pleural effusion. Echo 05/26 (): mod LVE, mild global LV hypo; nl RV; mild LAE; mild MR Echo 12/24: nl LV and RV, nl valves a/p: 56 yo smoker with h/o mild lv dysfunction, htn, hl, ckd, hiv, dm p/w progressive sob and subsequent PEA arrest with EMS (s/p resuscitation). acute hypoxic resp failure, acute on chronic syst CHF, NSTEMI, cardiac arrest ( PEA): -initially with marked chf on cxr in setting of several days of worsening sob -suspect PEA due to severe chf decompensation with acute hypoxia -suspected anoxic brain injury now, neuro following -cxr w/o chf, no clinical chf, did not respond to brief trial of lasix gtt -NSTEMI trop trend here with peak 1.3 ([id number] pattern) -ECG initially here with borderline ST changes for ischemia (likely secondary)-- ? underlying CAD with balanced ischemia on nuclear. -repeat echo here with worsened systolic function -ischemia w/u on hold due to poor neurological function/poor prognosis -cont beta blockade. adding hydralazine 07/21. -no NORRIS/ARB given profound FLORECITA -remains without suspected volume/chf--no diuresis for now -per critical care, may need trach vs compassionate wean from vent--awaiting decision from family - lyte repletion prn FLORECITA on CKD, hypernatremia: -baseline creat here 2.8 in 05/26. initially 2.4 on presentation to ER, up to 6s here. -suspect hypoperfusion/atn as cause -holding lasix -renal following, renal fxn improving -free water boluses via NGT for hypernatremia, improving HTN: -07/16 bp elevated at times, increase coreg to 12.5 bid - 07/17: bp labile today on higher dose of coreg. will con't to monitor. - 07/18: bp stable today, but running high. will uptitrate coreg. - 07/21: still with suboptimal bp control. Will add hydralazine. HIV/Hep C: -per ID team anemia, gib: -likely ugib -hgb improved s/p prbcs, now trending down again--? recurrent bleeding. 07/21 platelets also now trending down, monitor. -monitor labs, consider transfusion if hgb <8, if in line with family's goals of care decisions--per crit care ongoing discussions GOC - GOC discussions ongoing, awaiting decision from family
[2017-07-21] MEDS: ACETAMINOPHEN 650 MG/20.3 ML ORAL SOLUTION (CUPS) PO PRN (10:46)
[2017-07-21] MEDS ORDERED: POTASSIUM CHLORIDE ORAL LIQUID 20 MEQ/15 ML NGT ONE ×2 (11:30→21:58)
[2017-07-21] MEDS ORDERED: POTASSIUM CHLORIDE 30 MEQ in SODIUM CHLORIDE 300 ML IVPB ONE (12:00)
[2017-07-21] MEDS: hydrALAZINE HCL 10 MG TABLET PO SCH ×2 (12:10→23:00)
--- NOTE | 2017-07-21 13:45 | PN ---
Teaching Attending Note Name of Resident: Mukesh Niño ATTENDING PHYSICIAN STATEMENT I saw and evaluated the patient. I reviewed the resident's note and discussed the case with the resident. I agree with the resident's findings and plan as documented. SUBJECTIVE: Patient seen and examined in the ICU. Remains intubated and poorly responsive. No significant change in overall condition. Intake & Output 07/18/17 07/19/17 07/20/17 07/21/17 23:59 23:59 23:59 23:59 Intake Total 1784 2525.3 5672.8 2550 Output Total 1500 3220 3300 1000 Balance 284 -694.7 2372.8 1550 Weight 215 lb 9.793 oz 216 lb 11.43 oz 212 lb 1 oz 219 lb 4 oz Last Vital Signs Temp Pulse Resp BP Pulse Ox 100.2 F H 86 26 H 144/68 99 07/21/17 10:00 07/21/17 12:00 07/21/17 12:00 07/21/17 12:00 07/21/17 11:17 Active Medications Acetaminophen (Tylenol Oral Solution -) 650 mg PO Q6H PRN PRN Reason: FEVER OR PAIN Last Admin: 07/21/17 10:46 Dose: 650 mg Artificial Tears (Artificial Tears) 1 drop OU BID PRN PRN Reason: DRY EYES Carvedilol (Coreg -) 25 mg PO BID PAULINE Last Admin: 07/21/17 09:32 Dose: 25 mg Hydralazine HCl (Apresoline -) 10 mg PO BID PAULINE Last Admin: 07/21/17 12:10 Dose: 10 mg Propofol (Diprivan -) 1,000,000 mcg in 100 mls @ 2.807 mls/hr IVPB TITR PAULINE; 5 MCG/KG/MIN PRN Reason: Protocol Last Admin: 07/21/17 06:31 Dose: 50 mcg/kg/min, 28.066 mls/hr Pantoprazole Sodium 80 mg/ (Sodium Chloride) 100 mls @ 10 mls/hr IVPB Q10H PAULINE PRN Reason: 8 MG/HR Last Admin: 07/21/17 05:29 Dose: Not Given Midazolam HCl 100 mg/ Sodium (Chloride) 100 mls @ 1 mls/hr IVPB TITR PAULINE; 1 MG/ HR PRN Reason: Protocol Last Admin: 07/16/17 10:27 Dose: Not Given Sodium Bicarbonate 75 meq/ (Dextrose) 1,000 mls @ 60 mls/hr IV ASDIR [facility] Last Admin: 07/21/17 13:26 Dose: 60 mls/hr Potassium Chloride 30 meq/ (Sodium Chloride) 315 mls @ 105 mls/hr IVPB ONCE ONE Stop: 07/21/17 14:59 Last Admin: 07/21/17 12:04 Dose: 105 mls/hr Insulin Aspart (Novolog Vial Sliding Scale -) 1 vial SQ ACHS [facility] PRN Reason: Protocol Last Admin: 07/21/17 10:26 Dose: 6 units Insulin Detemir (Levemir Vial) 20 units SQ BID@0700,2200 [facility] Last Admin: 07/21/17 06:14 Dose: 20 units Labetalol HCl (Normodyne Injection -) 10 mg IVPUSH Q4H PRN PRN Reason: HYPERTENSION Last Admin: 07/20/17 08:48 Dose: 10 mg Sodium Bicarbonate (Sodium Bicarbonate -) 650 mg PO TID [facility] Last Admin: 07/21/17 13:26 Dose: 650 mg Gen: Intubated, poorly responsive Heart: RRR Lung: scattered rhonchi Abd: soft, nontender Ext: (+) edema Laboratory Results - last 24 hr 07/20/17 07/21/17 07/21/17 05:25 06:05 06:05 WBC 13.0 H RBC 3.16 L Hgb 8.8 L Hct 27.2 L MCV 85.9 MCH 28.0 MCHC 32.6 RDW 17.9 H Plt Count 128 L MPV 10.5 Neutrophils % 72.2 Lymphocytes % 16.5 Monocytes % 7.7 Eosinophils % 2.7 Basophils % 0.9 Sodium 149 H Potassium 3.0 L Chloride 122 H Carbon Dioxide 14 L Anion Gap 13 BUN 54 H Creatinine 2.1 H Creat Clearance w eGFR 32.72 POC Glucometer [phone] Random Glucose 294 H Calcium 6.4 L* Total Bilirubin 0.8 D AST 53 H ALT 55 Alkaline Phosphatase 90 D Total Protein 5.0 L Albumin 1.7 L IMP: S/P Cardiopulmonary Arrest Likely Anoxic Brain Injury Acute on Chronic Systolic Heart Failure +Troponins Acute on Chronic Renal Failure Lactic Acidosis resolved HTN HIV Hep C Smoker - completed empiric antibiotics - monitor urine output, creatinine - Daily sedation vacations to assess mental status - Taper FiO2 to keep SpO2 >90% - Wean trials as tolerated - Enteral feeds - DVT/GI prophylaxis - poor overall prognosis for meaningful recovery, previously had discussed with daughter, she had stated that pt would not want to be kept alive without quality of life, awaiting decision from family Dr Glez Critical care time spent in reviewing chart, evaluating patient and formulating plan 40 min
--- NOTE | 2017-07-21 14:04 | PN ---
Physical Exam: SUBJECTIVE: Patient seen and examined at bedside. Pt is DNR, intubated, sedated. Topic of compassionate extubation was broached with pt's daughter yesterday. Conference today with palliative team. One family member was unreachable during conference. Family requesting to speak with neurologist. Afebrile. hemodynamically stable. OBJECTIVE: Vital Signs Period Temp Pulse Resp BP Sys/[place] Pulse Ox Last 24 Hr 98.6 F-100.2 F 62-88 16-30 140-184/65-83 99-100 No change. GENERAL: Intubated and sedated. HEAD: Normal with no signs of trauma. EYES: sclera anicteric, conjunctiva clear. No ptosis. fixed downward left gaze. Pt does not track. ENT: oropharynx clear without exudates, moist mucous membranes. NECK: Trachea midline, full range of motion, supple. LUNGS: Breath sounds equal, clear to auscultation bilaterally, no wheezes, no crackles, no accessory muscle use. HEART: Regular rate and rhythm, S1, S2 without murmur, rub or gallop. ABDOMEN: Soft, nondistended, normoactive bowel sounds, no guarding, no rebound, no hepatosplenomegaly, no masses. EXTREMITIES: 2+ pulses, warm, well-perfused, no edema. NEUROLOGICAL: Intubated and sedated PSYCH: Intubated and sedated SKIN: Warm, dry, normal turgor, no rashes or lesions noted Laboratory Results - last 24 hr 07/20/17 07/21/17 07/21/17 05:25 06:05 06:05 WBC 13.0 H RBC 3.16 L Hgb 8.8 L Hct 27.2 L MCV 85.9 MCH 28.0 MCHC 32.6 RDW 17.9 H Plt Count 128 L MPV 10.5 Neutrophils % 72.2 Lymphocytes % 16.5 Monocytes % 7.7 Eosinophils % 2.7 Basophils % 0.9 Sodium 149 H Potassium 3.0 L Chloride 122 H Carbon Dioxide 14 L Anion Gap 13 BUN 54 H Creatinine 2.1 H Creat Clearance w eGFR 32.72 POC Glucometer [phone] Random Glucose 294 H Calcium 6.4 L* Total Bilirubin 0.8 D AST 53 H ALT 55 Alkaline Phosphatase 90 D Total Protein 5.0 L Albumin 1.7 L Active Medications Generic Name Dose Route Start Last Admin Trade Name Freq PRN Reason Stop Dose Admin Acetaminophen 650 mg 07/14/17 16:02 07/21/17 10:46 Tylenol Oral Solution - PO 650 mg Q6H PRN Administration FEVER OR PAIN Artificial Tears 1 drop 07/12/17 15:20 Artificial Tears OU BID PRN DRY EYES Carvedilol 25 mg 07/18/17 22:00 07/21/17 09:32 Coreg - PO 25 mg BID PAULINE Administration Hydralazine HCl 10 mg 07/21/17 11:00 07/21/17 12:10 Apresoline - PO 10 mg BID PAULINE Administration Propofol 1,000,000 mcg in 100 mls @ 2.807 mls/hr 07/10/17 14:00 07/21/17 06: 31 Diprivan - IVPB 50 mcg/kg/min TITR PAULINE 28.066 mls/hr Protocol Administration 5 MCG/KG/MIN Pantoprazole Sodium 80 mg/ 100 mls @ 10 mls/hr 07/10/17 19:15 07/21/17 05:29 Sodium Chloride IVPB Not Given Q10H PAULINE 8 MG/HR Midazolam HCl 100 mg/ Sodium 100 mls @ 1 mls/hr 07/16/17 09:30 07/16/17 10:27 Chloride IVPB Not Given TITR PAULINE Protocol 1 MG/HR Sodium Bicarbonate 75 meq/ 1,000 mls @ 60 mls/hr 07/20/17 13:39 07/21/17 13: 26 Dextrose IV 60 mls/hr ASDIR PAULINE Administration Potassium Chloride 30 meq/ 315 mls @ 105 mls/hr 07/21/17 12:00 07/21/17 12:04 Sodium Chloride IVPB 07/21/17 14:59 105 mls/hr ONCE ONE Administration Insulin Aspart 1 vial 07/17/17 16:30 07/21/17 10:26 Novolog Vial Sliding Scale - SQ 6 units ACHS PAULINE Administration Protocol Insulin Detemir 20 units 07/17/17 22:00 07/21/17 06:14 Levemir Vial SQ 20 units BID@0700,2200 PA[facility]INE Administration Labetalol HCl 10 mg 07/09/17 11:12 07/20/17 08:48 Normodyne Injection - IVPUSH 10 mg Q4H PRN Administration HYPERTENSION Sodium Bicarbonate 650 mg 07/15/17 14:00 07/21/17 13:26 Sodium Bicarbonate - PO 650 mg TID PAULINE Administration ASSESSMENT/PLAN: Pt is a 56 M w/ PMH HTN, HL, DM, CKD, and HIV on HAART who presented to ED with cardiopulmonary arrest. Pt is now intubated. Prior to arriving at the ED, pt had been complaining of wheezing and SOB. On arriving in ED, pt was in arrest and was coded for 5 min. Cardio #ARVEN for at least 5 min -intubatedardiopulmonary arrest -pt was coded in -Echo showed moderate-severe LV dysfunction -Tn peak at 1.33. Per Cardio, Tn is combination of demand & sepsis -holding Lasix at this time Neuro #Anoxic brain injury -Neuro on board -Pt was down and coded for several minutes -now exhibiting myoclonic jerks -holding klonopin -per Radiologist Dr. Estrada, Head CT revealed loss of balderas/white junction, and sulcal effacement, but no sign of herniation. -Decadron d/c'ed today -EEG abnormal -holding sedation ID -HIV positive -pt sees Dr. Vital as outpt -has been resistant to several medications -HIV meds on hold for now -Leukocytosis -WBC 12 -ID signing off Nephro -FLORECITA on CKD -Wedding Decorator 2.3 -Nephro on board -FLORECITA likely worsened by arrest -No need for HD at this time -Hold lasix for now Endocrine -DM -ISS FEN -on NS -Hypernatremia. Hypokalemia. Hypocalcemia. Repleting -Intubated sedated PPx -Hep SubQ Dispo -admitted to ICU -pending goals of care discussion. Pt will either need extubation or trach/PEG Mukesh Niño MD PGY-1, ICU Visit type - Emergency Visit Emergency Visit: No - New Patient This patient is new to me today: No - Critical Care Critical Care patient: Yes Total Critical Care Time (in minutes): 47 Critical Care Statement: The care of this patient involved high complexity decision making to prevent further life threatening deterioration of the patient 's condition and/or to evaluate & treat vital organ system(s) failure or risk of failure. - Discharge Referral Referred to [facility] No
--- NOTE | 2017-07-21 15:38 | PN ---
Progress Note, Physician History of Present Illness: Pt seen and examined at bedside. He remains in the ICU. - Current Medication List Current Medications: Active Medications Acetaminophen (Tylenol Oral Solution -) 650 mg PO Q6H PRN PRN Reason: FEVER OR PAIN Last Admin: 07/21/17 10:46 Dose: 650 mg Artificial Tears (Artificial Tears) 1 drop OU BID PRN PRN Reason: DRY EYES Carvedilol (Coreg -) 25 mg PO BID [facility] Last Admin: 07/21/17 09:32 Dose: 25 mg Hydralazine HCl (Apresoline -) 10 mg PO BID [facility] Last Admin: 07/21/17 12:10 Dose: 10 mg Propofol (Diprivan -) 1,000,000 mcg in 100 mls @ 2.807 mls/hr IVPB TITR [facility]; 5 MCG/KG/MIN PRN Reason: Protocol Last Admin: 07/21/17 06:31 Dose: 50 mcg/kg/min, 28.066 mls/hr Pantoprazole Sodium 80 mg/ (Sodium Chloride) 100 mls @ 10 mls/hr IVPB Q10H [facility] PRN Reason: 8 MG/HR Last Admin: 07/21/17 05:29 Dose: Not Given Midazolam HCl 100 mg/ Sodium (Chloride) 100 mls @ 1 mls/hr IVPB TITR [facility]; 1 MG/ HR PRN Reason: Protocol Last Admin: 07/16/17 10:27 Dose: Not Given Sodium Bicarbonate 75 meq/ (Dextrose) 1,000 mls @ 60 mls/hr IV ASDIR [facility] Last Admin: 07/21/17 13:26 Dose: 60 mls/hr Insulin Aspart (Novolog Vial Sliding Scale -) 1 vial SQ ACHS [facility] PRN Reason: Protocol Last Admin: 07/21/17 10:26 Dose: 6 units Insulin Detemir (Levemir Vial) 20 units SQ BID@0700,2200 [facility] Last Admin: 07/21/17 06:14 Dose: 20 units Labetalol HCl (Normodyne Injection -) 10 mg IVPUSH Q4H PRN PRN Reason: HYPERTENSION Last Admin: 07/20/17 08:48 Dose: 10 mg Sodium Bicarbonate (Sodium Bicarbonate -) 650 mg PO TID [facility] Last Admin: 07/21/17 13:26 Dose: 650 mg - Objective Vital Signs: Vital Signs Temperature 100.3 F H 07/21/17 14:00 Pulse Rate 88 07/21/17 14:00 Respiratory Rate 25 H 07/21/17 14:15 Blood Pressure 129/61 07/21/17 14:00 O2 Sat by Pulse Oximetry (%) 99 07/21/17 11:17 Constitutional: Yes: Calm Eyes: Yes: Conjunctiva Clear Cardiovascular: Yes: S1, S2 Respiratory: Yes: Mechanically Ventilated Gastrointestinal: Yes: Soft Genitourinary: Yes: Rocha Present Musculoskeletal: Yes: Muscle Weakness Edema: Yes Edema: LLE: 1+, RLE: 1+ Neurological: Yes: Lethargy Labs: CBC, BMP 07/21/17 06:05 07/21/17 06:05 INR, PTT INR 1.18 (0.82-1.09) H 07/06/17 05:00 - ....Imaging Chest X-ray: Report Reviewed Problem List - Problems (1) FLORECITA (acute kidney injury) Code(s): N17.9 - ACUTE KIDNEY FAILURE, UNSPECIFIED (2) CHF (congestive heart failure) Code(s): I50.9 - HEART FAILURE, UNSPECIFIED Qualifiers: Congestive heart failure type: unspecified congestive heart failure type Congestive heart failure chronicity: unspecified congestive heart failure chronicity Qualified Code(s): I50.9 - Heart failure, unspecified (3) Cardiopulmonary arrest with successful resuscitation Code(s): I46.9 - CARDIAC ARREST, CAUSE UNSPECIFIED (4) Chronic kidney disease Code(s): N18.9 - CHRONIC KIDNEY DISEASE, UNSPECIFIED (5) Hypertension Code(s): I10 - ESSENTIAL (PRIMARY) HYPERTENSION (6) Chronic kidney disease Code(s): N18.9 - CHRONIC KIDNEY DISEASE, UNSPECIFIED Assessment/Plan Current Medications Generic Name Dose Route Start Last Admin Trade Name Freq PRN Reason Stop Dose Admin Acetaminophen 650 mg 07/14/17 16:02 07/21/17 10:46 Tylenol Oral Solution - PO 650 mg Q6H PRN Administration FEVER OR PAIN Artificial Tears 1 drop 07/12/17 15:20 Artificial Tears OU BID PRN DRY EYES Carvedilol 25 mg 07/18/17 22:00 07/21/17 09:32 Coreg - PO 25 mg BID [facility] Administration Hydralazine HCl 10 mg 07/21/17 11:00 07/21/17 12:10 Apresoline - PO 10 mg BID [facility] Administration Propofol 1,000,000 mcg in 100 mls @ 2.807 mls/hr 07/10/17 14:00 07/21/17 06: 31 Diprivan - IVPB 50 mcg/kg/min TITR [facility] 28.066 mls/hr Protocol Administration 5 MCG/KG/MIN Pantoprazole Sodium 80 mg/ 100 mls @ 10 mls/hr 07/10/17 19:15 07/21/17 05:29 Sodium Chloride IVPB Not Given Q10H [facility] 8 MG/HR Midazolam HCl 100 mg/ Sodium 100 mls @ 1 mls/hr 07/16/17 09:30 07/16/17 10:27 Chloride IVPB Not Given TITR [facility] Protocol 1 MG/HR Sodium Bicarbonate 75 meq/ 1,000 mls @ 60 mls/hr 07/20/17 13:39 07/21/17 13: 26 Dextrose IV 60 mls/hr ASDIR [facility] Administration Insulin Aspart 1 vial 07/17/17 16:30 07/21/17 10:26 Novolog Vial Sliding Scale - SQ 6 units ACHS [facility] Administration Protocol Insulin Detemir 20 units 07/17/17 22:00 07/21/17 06:14 Levemir Vial SQ 20 units BID@0700,2200 [facility] Administration Labetalol HCl 10 mg 07/09/17 11:12 07/20/17 08:48 Normodyne Injection - IVPUSH 10 mg Q4H PRN Administration HYPERTENSION Sodium Bicarbonate 650 mg 07/15/17 14:00 07/21/17 13:26 Sodium Bicarbonate - PO 650 mg TID [facility] Administration Impression 1. FLORECITA 2. CKD 3. cardiac arrest 4. CHF 5. HIV 6. hypomagnesemia 7. anoxic brain injury 8. anemia 9. hyperglycemia 10. HTN 11. acidosis Plan - renal function continues to improve - repeat labs in am - cont free water - cont feeds - sodium is improving - monitor bp - family are still discussing GOC - steroids will contribute to elevated bun - will follow - vent support - likely ATN from hypotension during arrest, renal function is improving - cont to monitor urine output
[2017-07-21] MEDS ORDERED: WATER IV SCH (16:00)
[2017-07-21] MEDS ORDERED: SODIUM BICARBONATE IV SCH (16:00)
[2017-07-21] MEDS ORDERED: DEXTROSE 5% IV SCH (16:00)
[2017-07-21] MEDS ORDERED: POTASSIUM CHLORIDE TABS 20 MEQ TABLET.ER (FP) PO ONE (21:24)
--- NOTE | 2017-07-21 23:09 | PN ---
Progress Note, Physician History of Present Illness: No new changes Pt remains intubated - Current Medication List Current Medications: Active Medications Acetaminophen (Tylenol Oral Solution -) 650 mg PO Q6H PRN PRN Reason: FEVER OR PAIN Last Admin: 07/21/17 10:46 Dose: 650 mg Artificial Tears (Artificial Tears) 1 drop OU BID PRN PRN Reason: DRY EYES Carvedilol (Coreg -) 25 mg PO BID [facility] Last Admin: 07/21/17 22:05 Dose: 25 mg Hydralazine HCl (Apresoline -) 10 mg PO BID [facility] Last Admin: 07/21/17 12:10 Dose: 10 mg Propofol (Diprivan -) 1,000,000 mcg in 100 mls @ 2.807 mls/hr IVPB TITR [facility]; 5 MCG/KG/MIN PRN Reason: Protocol Last Admin: 07/21/17 14:00 Dose: 50 mcg/kg/min, 28.066 mls/hr Insulin Aspart (Novolog Vial Sliding Scale -) 1 vial SQ ACHS [facility] PRN Reason: Protocol Last Admin: 07/21/17 22:17 Dose: 6 units Insulin Detemir (Levemir Vial) 20 units SQ BID@0700,2200 [facility] Last Admin: 07/21/17 22:16 Dose: 20 units Labetalol HCl (Normodyne Injection -) 10 mg IVPUSH Q4H PRN PRN Reason: HYPERTENSION Last Admin: 07/20/17 08:48 Dose: 10 mg Sodium Bicarbonate (Sodium Bicarbonate -) 1,300 mg PO TID [facility] Last Admin: 07/21/17 22:06 Dose: 1,300 mg - Objective Vital Signs: Vital Signs Temperature 99.8 F H 07/21/17 22:00 Pulse Rate 66 07/21/17 22:00 Respiratory Rate 20 07/21/17 22:34 Blood Pressure 132/61 07/21/17 22:00 O2 Sat by Pulse Oximetry (%) 100 07/21/17 21:00 HENT: Yes: Other ((+) ETT) Neck: Yes: WNL, Supple Cardiovascular: Yes: WNL, Regular Rate and Rhythm Respiratory: Yes: WNL, Regular, CTA Bilaterally Gastrointestinal: Yes: WNL, Normal Bowel Sounds, Soft Edema: Yes Labs: CBC, BMP 07/21/17 06:05 07/21/17 06:05 INR, PTT INR 1.18 (0.82-1.09) H 07/06/17 05:00 Problem List - Problems (1) Respiratory failure Code(s): J96.90 - RESPIRATORY FAILURE, UNSP, UNSP W HYPOXIA OR HYPERCAPNIA (2) Cardiopulmonary arrest with successful resuscitation Code(s): I46.9 - CARDIAC ARREST, CAUSE UNSPECIFIED (3) Uncontrolled diabetes mellitus Code(s): E11.65 - TYPE 2 DIABETES MELLITUS WITH HYPERGLYCEMIA (4) Acute on chronic diastolic CHF (congestive heart failure) Code(s): I50.33 - ACUTE ON CHRONIC DIASTOLIC (CONGESTIVE) HEART FAILURE
[2017-07-22] MEDS: SODIUM BICARBONATE 650 MG TABLET PO SCH ×4 (06:12→21:24)
[2017-07-22] MEDS: INSULIN SLIDING SCALE (NOVOLOG) 1 VIAL SQ SCH ×5 (06:13→23:12)
[2017-07-22] MEDS: INSULIN DETEMIR 100 UNITS/ML MDV SQ SCH ×2 (06:14→23:11)
[2017-07-22] MEDS: LABETALOL HCL 5 MG/1 ML (100MG/20 ML VIAL) IVPUSH PRN ×2 (06:38→09:05)
[2017-07-22 07:05] LABS: ANION GAP 11 (8-16); CO2 16 mmol/L (21-32); MAGNESIUM 1.5 mg/dL (1.8-2.4)
[2017-07-22 07:27] LABS: GLUCOSE,RANDOM 320 mg/dL (74-106)
[2017-07-22] MEDS: CARVEDILOL 25 MG TABLET (FP) PO SCH ×2 (09:06→21:30)
[2017-07-22] MEDS: hydrALAZINE HCL 10 MG TABLET PO SCH (09:10)
--- NOTE | 2017-07-22 10:14 | PN ---
Progress Note (short form) - Note Progress Note: Neurology History of Present Illness: Mr. Welch is a 56 y/o man w/ HTN, HL, DM, CKD, HIV on HAART, EF 49.5%, BIBA for SOB. Reportedly had been experiencing worsening SOB & SAMUELS w/ assoc wheezing for several days prior to admission. While in route developed further respiratory distress and in ER had agonal breathing and unresponsive. No pulse noted on stretcher transferand chest compressions were initiated. The Pt was resuscitated per ACLS protocol for approximately 5 minutes according to note, receiving epi x 2, bicarb x 2. Pt was intubated and placed on ventilator and given nebulizers and steroids. Pt admitted to the ICU s/p Cardiac Arrest and respiratory failure. The patient has been on propofol but having myoclonic twitches especially in right foot. Given his history, this is likely myoclonic jerks 2/2 to anoxic brain injury. Klonipin was started, twitching improved and not visible at this time. There is minimal pupil contriction from 3mm to 2mm and therefore does not meet criteria for brain . However, only minimal brainstem activity and no significant improvement thus far. EEG completed, showed mix of theta and beta activity, consistent with encephalopathy. Again, not brain . CT head completed and showed cerebral edema, repeated and showed improved cerebral edema likely due to steroids given. Clinically without signficiant improvement. Attempts to wean propofol led to tachycardia and tachypnea. Patient being considered for palliative care as he has had no significant improvements and remains in ICU dependent on vent. I spoke to daughter in detail yesterday. Answered questions regarding minimal higher order cognition. Also asked about repeating EEG and informed that it would show continued encephalopathy as clinical state has not changed. Similarly , CT head would likely show reduced edema but not likely to twisting frame changer. They would not want to pursue trach and mcfp vent as well as PEG for maintain of life. Awaiting family decision on plan for care. Active Medications Acetaminophen (Tylenol Oral Solution -) 650 mg PO Q6H PRN PRN Reason: FEVER OR PAIN Last Admin: 07/21/17 10:46 Dose: 650 mg Artificial Tears (Artificial Tears) 1 drop OU BID PRN PRN Reason: DRY EYES Carvedilol (Coreg -) 25 mg PO BID [facility] Last Admin: 07/22/17 09:06 Dose: 25 mg Hydralazine HCl (Apresoline -) 10 mg PO BID [facility] Last Admin: 07/22/17 09:10 Dose: 10 mg Propofol (Diprivan -) 1,000,000 mcg in 100 mls @ 2.807 mls/hr IVPB TITR [facility]; 5 MCG/KG/MIN PRN Reason: Protocol Last Admin: 07/21/17 14:00 Dose: 50 mcg/kg/min, 28.066 mls/hr Insulin Aspart (Novolog Vial Sliding Scale -) 1 vial SQ ACHS [facility] PRN Reason: Protocol Last Admin: 07/22/17 06:13 Dose: 8 units Insulin Detemir (Levemir Vial) 20 units SQ BID@0700,2200 [facility] Last Admin: 07/22/17 06:14 Dose: 20 units Labetalol HCl (Normodyne Injection -) 10 mg IVPUSH Q4H PRN PRN Reason: HYPERTENSION Last Admin: 07/22/17 09:05 Dose: 10 mg Sodium Bicarbonate (Sodium Bicarbonate -) 1,300 mg PO TID [facility] Last Admin: 07/22/17 06:12 Dose: 1,300 mg Physical Exam Vital Signs Period Temp Pulse Resp BP Sys/[place] Pulse Ox Last 24 Hr 99 F-100.3 F 61-88 20-30 114-194/47-81 99-100 Constitutional: Yes: Well Nourished, No Distress, Calm Eyes: Yes: PERRL, Other (R Upward Lat Gaze.) HENT: Yes: WNL, Atraumatic, Normocephalic Neck: Yes: WNL, Supple, Trachea Midline Cardiovascular: Yes: WNL, Regular Rate and Rhythm Respiratory: Yes: Diminished, Mechanically Ventilated, Wheezes Gastrointestinal: Yes: Abdomen, Obese, Distention, Hyperactive Bowel Sounds ...Rectal Exam: Yes: Deferred Renal/: Yes: Rocha Present Breast(s): Yes: WNL Extremities: Yes: Other (Clubbed Fingers.) Edema: Yes Edema: LLE: 1+, RLE: 1+ Peripheral Pulses WNL: Yes Integumentary: Yes: WNL Neurological: No facial droop, not responding to pain, not gagging on suction, R pupil 2mm --> 1mm, no spontaneous movement, R foot myoclonic twitching noted CBCD WBC 13.0 K/mm3 (4.0-10.0) H 07/21/17 06:05 RBC 3.16 M/mm3 (4.00-5.60) L 07/21/17 06:05 Hgb 8.8 GM/dL (11.7-16.9) L 07/21/17 06:05 Hct 27.2 % (35.4-49) L 07/21/17 06:05 MCV 85.9 fl (80-96) 07/21/17 06:05 MCHC 32.6 g/dl (32.0-35.9) 07/21/17 06:05 RDW 17.9 % (11.9-15.9) H 07/21/17 06:05 Plt Count 128 K/MM3 (134-434) L 07/21/17 06:05 MPV 10.5 fl (7.5-11.1) 07/21/17 06:05 CMP Sodium 146 mmol/L (136-145) H 07/22/17 06:20 Potassium 3.3 mmol/L (3.5-5.1) L 07/22/17 06:20 Chloride 119 mmol/L (98-107) H 07/22/17 06:20 Carbon Dioxide 16 mmol/L (21-32) L 07/22/17 06:20 Anion Gap 11 (8-16) 07/22/17 06:20 BUN 52 mg/dL (7-18) H 07/22/17 06:20 Creatinine 2.0 mg/dL (0.7-1.3) H 07/22/17 06:20 Creat Clearance w eGFR 32.72 (>60) 07/21/17 06:05 Calcium 7.0 mg/dL (8.5-10.1) L 07/22/17 06:20 Total Bilirubin 0.8 mg/dL (0.2-1.0) D 07/21/17 06:05 AST 53 U/L (15-37) H 07/21/17 06:05 ALT 55 U/L (12-78) 07/21/17 06:05 Alkaline Phosphatase 90 U/L (45-117) D 07/21/17 06:05 Total Protein 5.0 g/dl (6.4-8.2) L 07/21/17 06:05 Albumin 1.7 g/dl (3.4-5.0) L 07/21/17 06:05 CT head X2 as above Plan: 56 y/o man w/ HTN, HL, DM, CKD, HIV on HAART, EF 49.5%, BIBA for SOB. Reportedly had been experiencing worsening SOB & SAMUELS w/ assoc wheezing for several days prior to admission. While in route developed further respiratory distress and in ER had agonal breathing and unresponsive. No pulse noted on stretcher transferand chest compressions were initiated. The Pt was resuscitated per ACLS protocol for approximately 5 minutes according to note, receiving epi x 2, bicarb x 2. Pt was intubated and placed on ventilator and given nebulizers and steroids. Pt admitted to the ICU s/p Cardiac Arrest and respiratory failure. The patient has been on propofol but having myoclonic twitches especially in right foot which have improved with Klonipin Given his history, this was likely myoclonic jerks 2/2 to anoxic brain injury and would not require AEDS Getting ICU care since admission klonipin 1mg twice daily added and subsided, no longer on Klonipin Continue Mechanical ventilation, wean as able Spiking fevers, possible central fevers, ID following Decadron discontinued Initial CT head with cerebral edema noted and loss of balderas white differentiation Repeat CT with cortical sulci more visible and less edema, though evidence of anoxic brain injury in basal ganglia EEG confirmed patient with brain activity, mix of delta and theta, consistent with encephalopathy No significant clinical improvement thus far Spoke with daughter extensively Family to decide on goals of care, more than 2 weeks without improvement Possibly would require trach, vent, peg vs. compassionate extubation Family to decide further but palliative care Critical Care Time 35 mins
[2017-07-22] MEDS ORDERED: INSULIN (NOVOLOG) ASPART 100 UNITS/ML 10ML VIAL ONE (11:52)
--- NOTE | 2017-07-22 11:53 | PN ---
Progress Note (short form) - Note Progress Note: CC: SOB/cardiac arrest. s: remains intubated/sedated, no overnight events. bp elevated still Current Medications Generic Name Dose Route Start Last Admin Trade Name Freq PRN Reason Stop Dose Admin Acetaminophen 650 mg 07/14/17 16:02 07/21/17 10:46 Tylenol Oral Solution - PO 650 mg Q6H PRN Administration FEVER OR PAIN Artificial Tears 1 drop 07/12/17 15:20 Artificial Tears OU BID PRN DRY EYES Carvedilol 25 mg 07/18/17 22:00 07/22/17 09:06 Coreg - PO 25 mg BID PAULINE Administration Hydralazine HCl 10 mg 07/21/17 11:00 07/22/17 09:10 Apresoline - PO 10 mg BID PAULINE Administration Propofol 1,000,000 mcg in 100 mls @ 2.807 mls/hr 07/10/17 14:00 07/21/17 14: 00 Diprivan - IVPB 50 mcg/kg/min TITR PAULINE 28.066 mls/hr Protocol Administration 5 MCG/KG/MIN Insulin Aspart 1 vial 07/17/17 16:30 07/22/17 11:46 Novolog Vial Sliding Scale - SQ 10 units ACHS PAULINE Administration Protocol Insulin Detemir 20 units 07/17/17 22:00 07/22/17 06:14 Levemir Vial SQ 20 units BID@0700,2200 PAULINE Administration Labetalol HCl 10 mg 07/09/17 11:12 07/22/17 09:05 Normodyne Injection - IVPUSH 10 mg Q4H PRN Administration HYPERTENSION Sodium Bicarbonate 1,300 mg 07/21/17 22:00 07/22/17 06:12 Sodium Bicarbonate - PO 1,300 mg TID PAULINE Administration Vital Signs Temp 99 F 07/22/17 09:40 Pulse 78 07/22/17 10:30 Resp 27 H 07/22/17 10:30 BP 194/75 07/22/17 09:40 Pulse Ox 97 07/22/17 10:30 Intake & Output 07/21/17 07/21/17 07/22/17 11:59 23:59 11:59 Intake Total 2550 3356.7 1153 Output Total 1000 1300 200 Balance 1550 2056.7 953 Weight 219 lb 4 oz 222 lb 8 oz Intake: IV 1089 1186.7 203 DIPRIVAN - 1,000,000 mcg 315 486.7 203 In 100 ml @ 5 MCG/KG/MIN 2.807 mls/hr IVPB TITR PAULINE Rx#:[id number] bicarb gtt 663 600 protonix gtt 111 100 IVPB 201 400 Tube Feeding 360 570 350 Tube Irrigant 900 1200 600 Output: Urine 1000 1300 200 Rocha 1000 1300 200 Other: Voiding Method Indwelling Catheter Indwelling Catheter Indwelling Catheter Bowel Movement Yes: flexiseal Yes: flexiseal Weight Measurement Method Built in [facility] Built in [facility] Constitutional: Yes: Well Nourished, No Distress, intubated, sedated. Eyes: No: Sclera Icterus Respiratory: Yes: mechanical breath sounds (anteriorly (pt intubated)). No: Accessory Muscle Use, Rales, Wheezes Gastrointestinal: Yes: Normal Bowel Sounds. No: Distention, Hepatomegaly, Palpable Mass, Tenderness Cardiovascular: Yes: tachcyardic, Regular Rate and Rhythm JVD: No Heart Sounds: Yes: S1, S2. No: Gallop Murmur: No: Systolic Murmur, Diastolic Murmurs) Extremities: No: Cool (feet), Cyanosis Edema: No Integumentary: No: Jaundice Neurological: No: sedated Psychiatric: No: Agitated - Other Data Labs, Other Data: Laboratory Last Values WBC 13.0 K/mm3 (4.0-10.0) H 07/21/17 06:05 RBC 3.16 M/mm3 (4.00-5.60) L 07/21/17 06:05 Hgb 8.8 GM/dL (11.7-16.9) L 07/21/17 06:05 Hct 27.2 % (35.4-49) L 07/21/17 06:05 MCV 85.9 fl (80-96) 07/21/17 06:05 MCH 28.0 pg (25.7-33.7) 07/21/17 06:05 MCHC 32.6 g/dl (32.0-35.9) 07/21/17 06:05 RDW 17.9 % (11.9-15.9) H 07/21/17 06:05 Plt Count 128 K/MM3 (134-434) L 07/21/17 06:05 MPV 10.5 fl (7.5-11.1) 07/21/17 06:05 Total Counted 100 07/14/17 05:00 Neutrophils % 72.2 % (42.8-82.8) 07/21/17 06:05 Neutrophils % (Manual) 88.7 % (42.8-82.8) H 07/17/17 05:55 Band Neutrophils % 0.0 % 07/17/17 05:55 Lymphocytes % 16.5 % (8-40) 07/21/17 06:05 Lymphocytes % (Manual) 4.1 % (8-40) L D 07/17/17 05:55 Monocytes % 7.7 % (3.8-10.2) 07/21/17 06:05 Monocytes % (Manual) 2 % (3.8-10.2) L 07/17/17 05:55 Eosinophils % 2.7 % (0-4.5) 07/21/17 06:05 Eosinophils % (Manual) 1.0 % (0-4.5) D 07/14/17 05:00 Basophils % 0.9 % (0-2.0) 07/21/17 06:05 Basophils % (Manual) 0.0 % (0-2.0) 07/17/17 05:55 Myelocytes % (Man) 0 % (0-2) D 07/17/17 05:55 Metamyelocytes 1 % (0-2) D 07/17/17 05:55 Manual Slide Review No Result Required. 07/06/17 05:00 Hypochromia 0 07/17/17 05:55 Toxic Granulation 0 07/17/17 05:55 Dohle Bodies 0 07/17/17 05:55 Platelet Estimate Normal 07/17/17 05:55 Platelet Comment No clumping noted 07/07/17 05:00 Polychromasia 0 07/17/17 05:55 Poikilocytosis 0 07/17/17 05:55 Basophilic Stippling 0 07/17/17 05:55 Anisocytosis 0 07/17/17 05:55 Microcytosis 0 07/17/17 05:55 Macrocytosis 0 07/17/17 05:55 Spherocytes 0 07/17/17 05:55 Sickle Cells 0 07/17/17 05:55 Target Cells 0 07/17/17 05:55 Tear Drop Cells 0 07/17/17 05:55 Ovalocytes 0 07/17/17 05:55 Stomatocytes 0 07/17/17 05:55 Helmet Cells 0 07/17/17 05:55 [place] Bodies 0 07/17/17 05:55 [place] Rings 0 07/17/17 05:55 [place] Cells 0 07/17/17 05:55 Acanthocytes (Spur) 0 07/17/17 05:55 Fragmented RBCs 0 07/17/17 05:55 Schistocytes 0 07/17/17 05:55 PT with INR 13.30 SEC (9.98-11.88) H 07/06/17 05:00 INR 1.18 (0.82-1.09) H 07/06/17 05:00 PTT (Actin FS) 20.4 SECONDS (26.9-34.4) L 07/05/17 00:45 Anticoagulation Therapy Y 07/15/17 00:15 Puncture Site Right radial 07/15/17 00:15 Patient Temperature 101.3 07/08/17 09:49 ABG pH 7.29 (7.35-7.45) L 07/15/17 00:15 ABG pCO2 at Pt Temp 22.5 mmHg (35-45) L 07/15/17 00:15 ABG pO2 at Pt Temp 119.0 mmHg (80-100) H D 07/15/17 00:15 ABG HCO3 10.6 meq/L (22-26) L* 07/15/17 00:15 ABG O2 Sat (Measured) 97.8 % (90-98.9) 07/15/17 00:15 ABG O2 Content 16.6 % vol (15-22) 07/15/17 00:15 ABG Base Excess -14.2 meq/l (-2-2) L* 07/15/17 00:15 Sorin Test Y 07/15/17 00:15 VBG pH 6.98 (7.32-7.42) L* 07/05/17 01:00 POC VBG pCO2 69.6 mmHg (38-52) H* 07/05/17 01:00 POC VBG pO2 49.8 mmHg (28-48) H 07/05/17 01:00 Mixed VBG HCO3 15.6 meq/L (19-25) L 07/05/17 01:00 Carboxyhemoglobin 0.2 gm% (0.5-2.0) L 07/05/17 06:00 Methemoglobin 1.0 % (0.4-1.5) 07/05/17 06:00 O2 Delivery Device Y 07/15/17 00:15 Oxygen Flow Rate 30% 07/15/17 00:15 Vent Mode Y 07/15/17 00:15 Vent Rate 16 07/15/17 00:15 Mechanical Rate Y 07/15/17 00:15 PEEP 5.0 cmH2O 07/15/17 00:15 Pressure Support Vent 500 07/15/17 00:15 Sodium 146 mmol/L (136-145) H 07/22/17 06:20 Potassium 3.3 mmol/L (3.5-5.1) L 07/22/17 06:20 Chloride 119 mmol/L (98-107) H 07/22/17 06:20 Carbon Dioxide 16 mmol/L (21-32) L 07/22/17 06:20 Anion Gap 11 (8-16) 07/22/17 06:20 BUN 52 mg/dL (7-18) H 07/22/17 06:20 Creatinine 2.0 mg/dL (0.7-1.3) H 07/22/17 06:20 Creat Clearance w eGFR 32.72 (>60) 07/21/17 06:05 POC Glucometer 273.64781 UNITS (80-120) 07/20/17 12:23 Random Glucose 320 mg/dL (74-106) H* 07/22/17 06:20 Fasting Glucose 535 mg/dL (70-105) H* 07/14/17 14:45 Lactic Acid 0.1 mmol/L (0.4-2.0) L 07/11/17 08:00 Calcium 7.0 mg/dL (8.5-10.1) L 07/22/17 06:20 Phosphorus 3.1 mg/dL (2.5-4.9) D 07/20/17 06:00 Magnesium 1.5 mg/dL (1.8-2.4) L 07/22/17 06:20 Total Bilirubin 0.8 mg/dL (0.2-1.0) D 07/21/17 06:05 Direct Bilirubin 0.4 mg/dL (0.0-0.2) H D 07/12/17 05:35 AST 53 U/L (15-37) H 07/21/17 06:05 ALT 55 U/L (12-78) 07/21/17 06:05 Alkaline Phosphatase 90 U/L (45-117) D 07/21/17 06:05 Creatine Kinase 237 IU/L (39-308) 07/07/17 13:00 Creatine Kinase Index 0.5 % (0.0-5.0) 07/07/17 13:00 CK-MB (CK-2) 1.282 ng/mL (0.5-3.6) 07/07/17 13:00 Troponin I 1.09 ng/ml (0.00-0.05) H* 07/07/17 13:00 B-Natriuretic Peptide 76665.37 pg/ml (5-125) H 07/05/17 00:45 Total Protein 5.0 g/dl (6.4-8.2) L 07/21/17 06:05 Albumin 1.7 g/dl (3.4-5.0) L 07/21/17 06:05 Urine Color Ltyellow 07/14/17 19:00 Urine Appearance Clear 07/14/17 19:00 Urine pH 6.0 (5.0-8.0) 07/14/17 19:00 Ur Specific [place] 1.013 (1.001-1.035) 07/14/17 19:00 Urine Protein 2+ (NEGATIVE) H 07/14/17 19:00 Urine Glucose (UA) 3+ (NEGATIVE) H 07/14/17 19:00 Urine Ketones Negative (NEGATIVE) 07/14/17 19:00 Urine Blood 1+ (NEGATIVE) H 07/14/17 19:00 Urine Nitrite Negative (NEGATIVE) 07/14/17 19:00 Urine Bilirubin Negative (NEGATIVE) 07/14/17 19:00 Urine Urobilinogen Negative mg/dL (0.2-1.0) 07/14/17 19:00 Ur Leukocyte Esterase Negative (NEGATIVE) 07/14/17 19:00 Urine WBC (Auto) 3 /hpf (3-5) 07/14/17 19:00 Urine RBC (Auto) 2 /hpf (0-3) 07/14/17 19:00 Ur Epithelial Cells Rare /HPF (FEW) 07/12/17 12:04 Hyaline Casts 1 /lpf 07/05/17 02:10 Urine Mucus Rare 07/14/17 19:00 Ur Random Sodium 57 MMOL/L 07/06/17 14:50 Ur Random Potassium 32.6 MMOL/L 07/06/17 14:50 Ur Random Chloride 43 MMOL/L 07/06/17 14:50 Ur Random Urea Nitrogn 380 mg/dL 07/06/17 14:50 Gastric Occult Blood Positive 07/10/17 16:45 Tobramycin Trough 3.1 ug/ml (0.0-2.0) H* 07/06/17 05:00 Random Vancomycin < 0.800 ug/ml 07/05/17 05:00 Beta-(1,3)-D-Glucan 41 pg/mL (<80) 07/05/17 08:05 Blood Type B POSITIVE 07/10/17 19:40 Antibody Screen Negative 07/10/17 19:20 Crossmatch See Detail 07/10/17 19:20 cxr 07/22: lung campos remain clear. tele: sr MPI 05/26: no ischemia, EF 33% (global Echo 06/2017: nl lv size. LV fn mod-sev reduced (global). nl rv size/fn. 1+ mac/mr/tr. rvsp 30-40. + pleural effusion. Echo 05/26 (): mod LVE, mild global LV hypo; nl RV; mild LAE; mild MR Echo 12/24: nl LV and RV, nl valves est cct 35 mins a/p: 56 yo smoker with h/o mild lv dysfunction, htn, hl, ckd, hiv, dm p/w progressive sob and subsequent PEA arrest with EMS (s/p resuscitation). acute hypoxic resp failure, acute on chronic syst CHF, NSTEMI, cardiac arrest ( PEA): -initially with marked chf on cxr in setting of several days of worsening sob -suspect PEA due to severe chf decompensation with acute hypoxia -suspected anoxic brain injury now, neuro following -cxr w/o chf, no clinical chf, did not respond to brief trial of lasix gtt -NSTEMI trop trend here with peak 1.3 ([id number] pattern) -ECG initially here with borderline ST changes for ischemia (likely secondary)-- ? underlying CAD with balanced ischemia on nuclear. -repeat echo here with worsened systolic function -ischemia w/u on hold due to poor neurological function/poor prognosis -cont beta blockade. added hydralazine 07/21. -no NORRIS/ARB given FLORECITA -remains without suspected volume/chf--no diuresis for now -per critical care, may need trach vs compassionate wean from vent--awaiting decision from family FLORECITA on CKD, hypernatremia: -baseline creat here 2.8 in 05/26. initially 2.4 on presentation to ER, up to 6s here. -suspect hypoperfusion/atn as cause -holding lasix -renal following, renal fxn improving, cr in 2s now HTN: -07/16 bp elevated at times, increase coreg to 12.5 bid - 07/17: bp labile today on higher dose of coreg. will con't to monitor. - 07/18: bp stable today, but running high. will uptitrate coreg. - 07/21: still with suboptimal bp control. Will add hydralazine. - 07/22: still with suboptimal bp control. Will increase hydralazine. HIV/Hep C: -per ID team anemia, gib: -likely had ugib -hgb improved s/p prbcs, now trending down again--? recurrent bleeding. -monitor labs, consider transfusion if hgb <8, if in line with family's goals of care decisions--per crit care ongoing discussions
--- NOTE | 2017-07-22 12:29 | PN ---
Teaching Attending Note Name of Resident: Mukesh Niño ATTENDING PHYSICIAN STATEMENT I saw and evaluated the patient. I reviewed the resident's note and discussed the case with the resident. I agree with the resident's findings and plan as documented. SUBJECTIVE: Pt seen and examined in the ICU. Remains intubated, sedated. Low grade temp overnight. OBJECTIVE: Last Vital Signs Temp Pulse Resp BP Pulse Ox 99 F 78 23 192/78 97 07/22/17 10:00 07/22/17 12:17 07/22/17 12:17 07/22/17 12:17 07/22/17 10:30 Intake & Output 07/19/17 07/20/17 07/21/17 07/22/17 23:59 23:59 23:59 23:59 Intake Total 2525.3 5672.8 5906.7 1153 Output Total 3220 3300 2300 200 Balance -694.7 2372.8 3606.7 953 Weight 216 lb 11.43 oz 212 lb 1 oz 219 lb 4 oz 222 lb 8 oz Gen: intubated, sedated Heart: RRR Lung: scattered rhonchi Abd: soft, nontender Ext: + edema CBC, BMP 07/21/17 06:05 07/22/17 06:20 Active Medications Acetaminophen (Tylenol Oral Solution -) 650 mg PO Q6H PRN PRN Reason: FEVER OR PAIN Last Admin: 07/21/17 10:46 Dose: 650 mg Artificial Tears (Artificial Tears) 1 drop OU BID PRN PRN Reason: DRY EYES Carvedilol (Coreg -) 25 mg PO BID [facility] Last Admin: 07/22/17 09:06 Dose: 25 mg Hydralazine HCl (Apresoline -) 25 mg PO TID PAULINE Propofol (Diprivan -) 1,000,000 mcg in 100 mls @ 2.807 mls/hr IVPB TITR PAULINE; 5 MCG/KG/MIN PRN Reason: Protocol Last Admin: 07/21/17 14:00 Dose: 50 mcg/kg/min, 28.066 mls/hr Insulin Aspart (Novolog Vial Sliding Scale -) 1 vial SQ ACHS PAULINE PRN Reason: Protocol Last Admin: 07/22/17 11:54 Dose: 10 units Insulin Detemir (Levemir Vial) 20 units SQ BID@0700,2200 PAULINE Last Admin: 07/22/17 06:14 Dose: 20 units Labetalol HCl (Normodyne Injection -) 10 mg IVPUSH Q4H PRN PRN Reason: HYPERTENSION Last Admin: 07/22/17 09:05 Dose: 10 mg Sodium Bicarbonate (Sodium Bicarbonate -) 1,300 mg PO TID [facility] Last Admin: 07/22/17 06:12 Dose: 1,300 mg ASSESSMENT AND PLAN: s/p Cardiopulmonary Arrest Likely Anoxic Brain Injury Acute on Chronic Systolic Heart Failure +Troponins Acute on Chronic Renal Failure Lactic Acidosis resolved HTN HIV Hep C Smoker - completed empiric antibiotics - monitor urine output, creatinine - replete lytes - daily sedation vacations to assess mental status - taper FiO2 to keep SpO2 >90% - not a candidate for weaning due to poor mental status - enteral feeds - DVT/GI prophylaxis - poor overall prognosis for meaningful recovery, had discussed with daughter, she had stated that pt would not want to be kept alive without quality of life, awaiting decision from family critical care time spent in reviewing chart, evaluating patient and formulating plan 35 min
[2017-07-22] MEDS: hydrALAZINE HCL 25 MG TABLET (FP) PO SCH ×2 (13:03→21:30)
--- NOTE | 2017-07-22 13:59 | PN ---
Progress Note, Physician History of Present Illness: Pt seen and examined at bedside. He remains in ICU. Pt remains lethargic. - Current Medication List Current Medications: Active Medications Acetaminophen (Tylenol Oral Solution -) 650 mg PO Q6H PRN PRN Reason: FEVER OR PAIN Last Admin: 07/21/17 10:46 Dose: 650 mg Artificial Tears (Artificial Tears) 1 drop OU BID PRN PRN Reason: DRY EYES Carvedilol (Coreg -) 25 mg PO BID [facility] Last Admin: 07/22/17 09:06 Dose: 25 mg Hydralazine HCl (Apresoline -) 25 mg PO TID [facility] Last Admin: 07/22/17 13:03 Dose: 25 mg Propofol (Diprivan -) 1,000,000 mcg in 100 mls @ 2.807 mls/hr IVPB TITR PAULINE; 5 MCG/KG/MIN PRN Reason: Protocol Last Admin: 07/21/17 14:00 Dose: 50 mcg/kg/min, 28.066 mls/hr Insulin Aspart (Novolog Vial Sliding Scale -) 1 vial SQ ACHS PAULINE PRN Reason: Protocol Last Admin: 07/22/17 11:54 Dose: 10 units Insulin Detemir (Levemir Vial) 20 units SQ BID@0700,2200 [facility] Last Admin: 07/22/17 06:14 Dose: 20 units Labetalol HCl (Normodyne Injection -) 10 mg IVPUSH Q4H PRN PRN Reason: HYPERTENSION Last Admin: 07/22/17 09:05 Dose: 10 mg Sodium Bicarbonate (Sodium Bicarbonate -) 1,300 mg PO TID [facility] Last Admin: 07/22/17 13:03 Dose: 1,300 mg - Objective Vital Signs: Vital Signs Temperature 99.3 F 07/22/17 12:27 Pulse Rate 69 07/22/17 12:27 Respiratory Rate 23 07/22/17 12:27 Blood Pressure 192/78 07/22/17 12:00 O2 Sat by Pulse Oximetry (%) 97 07/22/17 10:30 Constitutional: Yes: Calm Eyes: Yes: Conjunctiva Clear HENT: Yes: Atraumatic Cardiovascular: Yes: S1, S2 Respiratory: Yes: Mechanically Ventilated Gastrointestinal: Yes: Soft Genitourinary: Yes: Rocha Present Musculoskeletal: Yes: Muscle Weakness Edema: Yes Edema: LUE: Trace, RUE: Trace, LLE: 1+, RLE: 1+ Neurological: Yes: Lethargy Labs: CBC, BMP 07/21/17 06:05 07/22/17 06:20 INR, PTT INR 1.18 (0.82-1.09) H 07/06/17 05:00 Problem List - Problems (1) FLORECITA (acute kidney injury) Code(s): N17.9 - ACUTE KIDNEY FAILURE, UNSPECIFIED (2) CHF (congestive heart failure) Code(s): I50.9 - HEART FAILURE, UNSPECIFIED Qualifiers: Congestive heart failure type: unspecified congestive heart failure type Congestive heart failure chronicity: unspecified congestive heart failure chronicity Qualified Code(s): I50.9 - Heart failure, unspecified (3) Cardiopulmonary arrest with successful resuscitation Code(s): I46.9 - CARDIAC ARREST, CAUSE UNSPECIFIED (4) Chronic kidney disease Code(s): N18.9 - CHRONIC KIDNEY DISEASE, UNSPECIFIED (5) Hypertension Code(s): I10 - ESSENTIAL (PRIMARY) HYPERTENSION (6) Chronic kidney disease Code(s): N18.9 - CHRONIC KIDNEY DISEASE, UNSPECIFIED Assessment/Plan Current Medications Generic Name Dose Route Start Last Admin Trade Name Freq PRN Reason Stop Dose Admin Acetaminophen 650 mg 07/14/17 16:02 07/21/17 10:46 Tylenol Oral Solution - PO 650 mg Q6H PRN Administration FEVER OR PAIN Artificial Tears 1 drop 07/12/17 15:20 Artificial Tears OU BID PRN DRY EYES Carvedilol 25 mg 07/18/17 22:00 07/22/17 09:06 Coreg - PO 25 mg BID PAULINE Administration Hydralazine HCl 25 mg 07/22/17 14:00 07/22/17 13:03 Apresoline - PO 25 mg TID PAULINE Administration Propofol 1,000,000 mcg in 100 mls @ 2.807 mls/hr 07/10/17 14:00 07/21/17 14: 00 Diprivan - IVPB 50 mcg/kg/min TITR PAULINE 28.066 mls/hr Protocol Administration 5 MCG/KG/MIN Insulin Aspart 1 vial 07/17/17 16:30 07/22/17 11:54 Novolog Vial Sliding Scale - SQ 10 units ACHS PAULINE Administration Protocol Insulin Detemir 20 units 07/17/17 22:00 07/22/17 06:14 Levemir Vial SQ 20 units BID@0700,2200 PAULINE Administration Labetalol HCl 10 mg 07/09/17 11:12 07/22/17 09:05 Normodyne Injection - IVPUSH 10 mg Q4H PRN Administration HYPERTENSION Sodium Bicarbonate 1,300 mg 07/21/17 22:00 07/22/17 13:03 Sodium Bicarbonate - PO 1,300 mg TID PAULINE Administration Impression 1. FLORECITA 2. CKD 3. cardiac arrest 4. CHF 5. HIV 6. hypomagnesemia 7. anoxic brain injury 8. anemia 9. hyperglycemia 10. HTN 11. acidosis Plan - replace potassium - monitor renal function - monitor bicarb - vent support - monitor bp - family are still discussing GOC - will follow - likely ATN from hypotension during arrest, renal function is improving - cont to monitor urine output
[2017-07-22] MEDS: PROPOFOL 1,000,000 MCG/100 ML VIAL IVPB SCH ×2 (14:00→19:30)
[2017-07-22] MEDS ORDERED: hydrALAZINE HCL 10 MG TABLET PO SCH (14:00)
--- NOTE | 2017-07-22 17:14 | PN ---
Physical Exam: SUBJECTIVE: Patient seen and examined at bedside. Pt is DNR, intubated, sedated. Topic of compassionate extubation was broached with pt's daughter. Neurologist spoke with family yesterday. Awaiting family decision on goals of care. Afebrile. hemodynamically stable. OBJECTIVE: Vital Signs Period Temp Pulse Resp BP Sys/[place] Pulse Ox Last 24 Hr 99 F-100.1 F 61-108 20-29 114-194/47-81 97-100 No change. GENERAL: Intubated and sedated. HEAD: Normal with no signs of trauma. EYES: sclera anicteric, conjunctiva clear. No ptosis. fixed downward left gaze. Pt does not track. ENT: oropharynx clear without exudates, moist mucous membranes. NECK: Trachea midline, full range of motion, supple. LUNGS: Breath sounds equal, clear to auscultation bilaterally, no wheezes, no crackles, no accessory muscle use. HEART: Regular rate and rhythm, S1, S2 without murmur, rub or gallop. ABDOMEN: Soft, nondistended, normoactive bowel sounds, no guarding, no rebound, no hepatosplenomegaly, no masses. EXTREMITIES: 2+ pulses, warm, well-perfused, no edema. NEUROLOGICAL: Intubated and sedated PSYCH: Intubated and sedated SKIN: Warm, dry, normal turgor, no rashes or lesions noted Laboratory Results - last 24 hr 07/22/17 06:20 Sodium 146 H Potassium 3.3 L Chloride 119 H Carbon Dioxide 16 L Anion Gap 11 BUN 52 H Creatinine 2.0 H Random Glucose 320 H* Calcium 7.0 L Magnesium 1.5 L Active Medications Generic Name Dose Route Start Last Admin Trade Name Freq PRN Reason Stop Dose Admin Acetaminophen 650 mg 07/14/17 16:02 07/21/17 10:46 Tylenol Oral Solution - PO 650 mg Q6H PRN Administration FEVER OR PAIN Artificial Tears 1 drop 07/12/17 15:20 Artificial Tears OU BID PRN DRY EYES Carvedilol 25 mg 07/18/17 22:00 07/22/17 09:06 Coreg - PO 25 mg BID PAULINE Administration Hydralazine HCl 25 mg 07/22/17 14:00 07/22/17 13:03 Apresoline - PO 25 mg TID PAULINE Administration Propofol 1,000,000 mcg in 100 mls @ 2.807 mls/hr 07/10/17 14:00 07/22/17 14: 00 Diprivan - IVPB 50 mcg/kg/min TITR PAULINE 28.066 mls/hr Protocol Administration 5 MCG/KG/MIN Insulin Aspart 1 vial 07/17/17 16:30 07/22/17 17:02 Novolog Vial Sliding Scale - SQ 10 units ACHS PAULINE Administration Protocol Insulin Detemir 20 units 07/17/17 22:00 07/22/17 06:14 Levemir Vial SQ 20 units BID@0700,2200 PAULINE Administration Labetalol HCl 10 mg 07/09/17 11:12 07/22/17 09:05 Normodyne Injection - IVPUSH 10 mg Q4H PRN Administration HYPERTENSION Sodium Bicarbonate 1,300 mg 07/21/17 22:00 07/22/17 13:03 Sodium Bicarbonate - PO 1,300 mg TID PAULINE Administration ASSESSMENT/PLAN: Pt is a 56 M w/ PMH HTN, HL, DM, CKD, and HIV on HAART who presented to ED with cardiopulmonary arrest. Pt is now intubated. Prior to arriving at the ED, pt had been complaining of wheezing and SOB. On arriving in ED, pt was in arrest and was coded for 5 min. Cardio #RAVEN for at least 5 min -intubatedardiopulmonary arrest -pt was coded in -Echo showed moderate-severe LV dysfunction -Tn peak at 1.33. Per Cardio, Tn is combination of demand & sepsis -holding Lasix at this time Neuro #Anoxic brain injury -Neuro on board -Pt was down and coded for several minutes -now exhibiting myoclonic jerks -holding klonopin -per Radiologist Dr. Estrada, Head CT revealed loss of balderas/white junction, and sulcal effacement, but no sign of herniation. -Decadron d/c'ed today -EEG abnormal -holding sedation ID -HIV positive -pt sees Dr. Vital as outpt -has been resistant to several medications -HIV meds on hold for now -Leukocytosis -ID signed off Nephro -FLORECITA on CKD -Nephro on board -FLORECITA likely worsened by arrest -No need for HD at this time -Hold lasix for now Endocrine -DM -ISS FEN -on NS -Hypernatremia. Hypokalemia. Hypocalcemia. Repleting -Intubated sedated PPx -Hep SubQ Dispo -admitted to ICU -pending goals of care discussion. Pt will either need extubation or trach/PEG Mukesh Niño MD PGY-1, ICU Visit type - Emergency Visit Emergency Visit: No - New Patient This patient is new to me today: No - Critical Care Critical Care patient: Yes Total Critical Care Time (in minutes): 35 Critical Care Statement: The care of this patient involved high complexity decision making to prevent further life threatening deterioration of the patient 's condition and/or to evaluate & treat vital organ system(s) failure or risk of failure. - Discharge Referral Referred to [facility] No
[2017-07-22] MEDS ORDERED: MAGNESIUM SULF 50% (8.12 MEQ/2 ML-1 GM VIAL) IVPB ONE (17:15)
[2017-07-22] MEDS ORDERED: KCL 10 MEQ IVPB 10 MEQ/100 ML INFUS.BAG IVPB SCH (17:15)
[2017-07-22] MEDS ORDERED: POTASSIUM CHLORIDE ORAL LIQUID 20 MEQ/15 ML NGT ONE (19:21)
--- NOTE | 2017-07-22 23:40 | PN ---
Progress Note, Physician - Current Medication List Current Medications: Active Medications Acetaminophen (Tylenol Oral Solution -) 650 mg PO Q6H PRN PRN Reason: FEVER OR PAIN Last Admin: 07/21/17 10:46 Dose: 650 mg Artificial Tears (Artificial Tears) 1 drop OU BID PRN PRN Reason: DRY EYES Carvedilol (Coreg -) 25 mg PO BID [facility] Last Admin: 07/22/17 21:30 Dose: 25 mg Hydralazine HCl (Apresoline -) 25 mg PO TID [facility] Last Admin: 07/22/17 21:30 Dose: 25 mg Propofol (Diprivan -) 1,000,000 mcg in 100 mls @ 2.807 mls/hr IVPB TITR [facility]; 5 MCG/KG/MIN PRN Reason: Protocol Last Admin: 07/22/17 14:00 Dose: 50 mcg/kg/min, 28.066 mls/hr Insulin Aspart (Novolog Vial Sliding Scale -) 1 vial SQ ACHS [facility] PRN Reason: Protocol Last Admin: 07/22/17 23:12 Dose: 12 units Insulin Detemir (Levemir Vial) 20 units SQ BID@0700,2200 [facility] Last Admin: 07/22/17 23:11 Dose: 20 units Labetalol HCl (Normodyne Injection -) 10 mg IVPUSH Q4H PRN PRN Reason: HYPERTENSION Last Admin: 07/22/17 09:05 Dose: 10 mg Sodium Bicarbonate (Sodium Bicarbonate -) 1,300 mg PO TID [facility] Last Admin: 07/22/17 21:24 Dose: 1,300 mg - Objective Vital Signs: Vital Signs Temperature 100.2 F H 07/22/17 18:00 Pulse Rate 88 07/22/17 22:00 Respiratory Rate 30 H 07/22/17 21:30 Blood Pressure 162/78 07/22/17 22:00 O2 Sat by Pulse Oximetry (%) 100 07/22/17 20:40 HENT: Yes: Other ((+) ETT) Cardiovascular: Yes: WNL, Regular Rate and Rhythm Respiratory: Yes: Other (Decreased BS B/L) Gastrointestinal: Yes: WNL, Normal Bowel Sounds, Soft Edema: Yes Labs: CBC, BMP 07/21/17 06:05 07/22/17 06:20 INR, PTT INR 1.18 (0.82-1.09) H 07/06/17 05:00 Problem List - Problems (1) Respiratory failure Assessment/Plan: Poor prognosis and condition is terminal Cont nebulizers/IV sedation Code(s): J96.90 - RESPIRATORY FAILURE, UNSP, UNSP W HYPOXIA OR HYPERCAPNIA (2) Cardiopulmonary arrest with successful resuscitation Assessment/Plan: Pt remains intubated w/ poor prognosis Pt w/ anoxic brain injury/cerebral edema Code(s): I46.9 - CARDIAC ARREST, CAUSE UNSPECIFIED (3) Uncontrolled diabetes mellitus Assessment/Plan: Cont sliding scale w/ coverage Code(s): E11.65 - TYPE 2 DIABETES MELLITUS WITH HYPERGLYCEMIA (4) Acute on chronic diastolic CHF (congestive heart failure) Assessment/Plan: Euvolemic Code(s): I50.33 - ACUTE ON CHRONIC DIASTOLIC (CONGESTIVE) HEART FAILURE (5) Acute on chronic kidney failure Code(s): N17.9 - ACUTE KIDNEY FAILURE, UNSPECIFIED; N18.9 - CHRONIC KIDNEY DISEASE, UNSPECIFIED
[2017-07-23] MEDS: PROPOFOL 1,000,000 MCG/100 ML VIAL IVPB SCH ×4 (05:30→23:43)
[2017-07-23] MEDS: INSULIN SLIDING SCALE (NOVOLOG) 1 VIAL SQ SCH (06:09)
[2017-07-23] MEDS: SODIUM BICARBONATE 650 MG TABLET PO SCH ×3 (06:10→21:31)
[2017-07-23] MEDS: INSULIN DETEMIR 100 UNITS/ML MDV SQ SCH (06:10)
[2017-07-23] MEDS: hydrALAZINE HCL 25 MG TABLET (FP) PO SCH ×3 (06:11→21:31)
[2017-07-23 07:07] LABS: BASO % 0.7 % (0-2.0); EOS % 1.2 % (0-4.5); MCH 27.2 pg (25.7-33.7); MCHC 31.5 g/dl (32.0-35.9); MEAN CELL VOLUME 86.3 fl (80-96); MEAN PLT VOLUME 10.1 fl (7.5-11.1); NEUT % 83.8 % (42.8-82.8); PLATELET COUNT 118 K/MM3 (134-434); RDW 18.3 % (11.9-15.9); WHITE BLOOD COUNT 17.3 K/mm3 (4.0-10.0)
[2017-07-23 07:20] LABS: ANION GAP 17 (8-16); CO2 10 mmol/L (21-32); CREATININE 3.2 mg/dL (0.7-1.3); MAGNESIUM 2.1 mg/dL (1.8-2.4); PHOSPHOROUS 4.6 mg/dL (2.5-4.9)
[2017-07-23 07:27] LABS: GLUCOSE,RANDOM 392 mg/dL (74-106)
[2017-07-23 07:28] LABS: CALCIUM 6.9 mg/dL (8.5-10.1)
[2017-07-23] MEDS: CARVEDILOL 25 MG TABLET (FP) PO SCH ×2 (10:00→21:30)
--- NOTE | 2017-07-23 10:19 | PN ---
Progress Note (short form) - Note Progress Note: Neurology History of Present Illness: Mr. Welch is a 56 y/o man w/ HTN, HL, DM, CKD, HIV on HAART, EF 49.5%, BIBA for SOB. Reportedly had been experiencing worsening SOB & SAMUELS w/ assoc wheezing for several days prior to admission. While in route developed further respiratory distress and in ER had agonal breathing and unresponsive. No pulse noted on stretcher transferand chest compressions were initiated. The Pt was resuscitated per ACLS protocol for approximately 5 minutes according to note, receiving epi x 2, bicarb x 2. Pt was intubated and placed on ventilator and given nebulizers and steroids. Pt admitted to the ICU s/p Cardiac Arrest and respiratory failure. The patient has been on propofol but having myoclonic twitches especially in right foot. Given his history, this is likely myoclonic jerks 2/2 to anoxic brain injury. Klonipin was started, twitching improved and not visible at this time. There is minimal pupil contriction from 3mm to 2mm and therefore does not meet criteria for brain . However, only minimal brainstem activity and no significant improvement thus far. EEG completed, showed mix of theta and beta activity, consistent with encephalopathy. Again, not brain . CT head completed and showed cerebral edema, repeated and showed improved cerebral edema likely due to steroids given. Clinically without signficiant improvement. Attempts to wean propofol led to tachycardia and tachypnea. Patient being considered for palliative care as he has had no significant improvements and remains in ICU dependent on vent. I spoke to daughter in detail recently. Answered questions regarding minimal higher order cognition. Also asked about repeating EEG and informed that it would show continued encephalopathy as clinical state has not changed. Similarly , CT head would likely show reduced edema but not likely to business change manager. They would not want to pursue trach and long goods drier vent as well as PEG for maintain of life. Awaiting family decision on plan for care. Active Medications Acetaminophen (Tylenol Oral Solution -) 650 mg PO Q6H PRN PRN Reason: FEVER OR PAIN Last Admin: 07/21/17 10:46 Dose: 650 mg Artificial Tears (Artificial Tears) 1 drop OU BID PRN PRN Reason: DRY EYES Carvedilol (Coreg -) 25 mg PO BID [facility] Last Admin: 07/22/17 21:30 Dose: 25 mg Hydralazine HCl (Apresoline -) 25 mg PO TID [facility] Last Admin: 07/23/17 06:11 Dose: 25 mg Propofol (Diprivan -) 1,000,000 mcg in 100 mls @ 2.807 mls/hr IVPB TITR [facility]; 5 MCG/KG/MIN PRN Reason: Protocol Last Admin: 07/23/17 05:30 Dose: 50 mcg/kg/min, 28.066 mls/hr Insulin Aspart (Novolog Vial Sliding Scale -) 1 vial SQ ACHS [facility] PRN Reason: Protocol Last Admin: 07/23/17 06:09 Dose: 12 units Insulin Detemir (Levemir Vial) 20 units SQ BID@0700,2200 [facility] Last Admin: 07/23/17 06:10 Dose: 20 units Labetalol HCl (Normodyne Injection -) 10 mg IVPUSH Q4H PRN PRN Reason: HYPERTENSION Last Admin: 07/22/17 09:05 Dose: 10 mg Sodium Bicarbonate (Sodium Bicarbonate -) 1,300 mg PO TID [facility] Last Admin: 07/23/17 06:10 Dose: 1,300 mg Physical Exam Vital Signs Period Temp Pulse Resp BP Sys/[place]illo Pulse Ox Last 24 Hr 97.2 F-100.2 F 69-109 23-32 113-192/55-86 97-100 Constitutional: Yes: Well Nourished, No Distress, Calm Eyes: Yes: PERRL, Other (R Upward Lat Gaze.) HENT: Yes: WNL, Atraumatic, Normocephalic Neck: Yes: WNL, Supple, Trachea Midline Cardiovascular: Yes: WNL, Regular Rate and Rhythm Respiratory: Yes: Diminished, Mechanically Ventilated, Wheezes Gastrointestinal: Yes: Abdomen, Obese, Distention, Hyperactive Bowel Sounds ...Rectal Exam: Yes: Deferred Renal/: Yes: Rocha Present Breast(s): Yes: WNL Extremities: Yes: Other (Clubbed Fingers.) Edema: Yes Edema: LLE: 1+, RLE: 1+ Peripheral Pulses WNL: Yes Integumentary: Yes: WNL Neurological: No facial droop, not responding to pain, not gagging on suction, R pupil 2mm --> 1mm, no spontaneous movement, R foot myoclonic twitching noted CBCD WBC 17.3 K/mm3 (4.0-10.0) H D 07/23/17 05:35 RBC 3.01 M/mm3 (4.00-5.60) L 07/23/17 05:35 Hgb 8.2 GM/dL (11.7-16.9) L 07/23/17 05:35 Hct 26.0 % (35.4-49) L 07/23/17 05:35 MCV 86.3 fl (80-96) 07/23/17 05:35 MCHC 31.5 g/dl (32.0-35.9) L 07/23/17 05:35 RDW 18.3 % (11.9-15.9) H 07/23/17 05:35 Plt Count 118 K/MM3 (134-434) L 07/23/17 05:35 MPV 10.1 fl (7.5-11.1) 07/23/17 05:35 CMP Sodium 143 mmol/L (136-145) 07/23/17 05:35 Potassium 3.4 mmol/L (3.5-5.1) L 07/23/17 05:35 Chloride 116 mmol/L (98-107) H 07/23/17 05:35 Carbon Dioxide 10 mmol/L (21-32) L D 07/23/17 05:35 Anion Gap 17 (8-16) H 07/23/17 05:35 BUN 68 mg/dL (7-18) H D 07/23/17 05:35 Creatinine 3.2 mg/dL (0.7-1.3) H D 07/23/17 05:35 Creat Clearance w eGFR 32.72 (>60) 07/21/17 06:05 Calcium 6.9 mg/dL (8.5-10.1) L* 07/23/17 05:35 Total Bilirubin 0.8 mg/dL (0.2-1.0) D 07/21/17 06:05 AST 53 U/L (15-37) H 07/21/17 06:05 ALT 55 U/L (12-78) 07/21/17 06:05 Alkaline Phosphatase 90 U/L (45-117) D 07/21/17 06:05 Total Protein 5.0 g/dl (6.4-8.2) L 07/21/17 06:05 Albumin 1.7 g/dl (3.4-5.0) L 07/21/17 06:05 CT head X2 as above Plan: 56 y/o man w/ HTN, HL, DM, CKD, HIV on HAART, EF 49.5%, BIBA for SOB. Reportedly had been experiencing worsening SOB & SAMUELS w/ assoc wheezing for several days prior to admission. While in route developed further respiratory distress and in ER had agonal breathing and unresponsive. No pulse noted on stretcher transferand chest compressions were initiated. The Pt was resuscitated per ACLS protocol for approximately 5 minutes according to note, receiving epi x 2, bicarb x 2. Pt was intubated and placed on ventilator and given nebulizers and steroids. Pt admitted to the ICU s/p Cardiac Arrest and respiratory failure. The patient has been on propofol but having myoclonic twitches especially in right foot which have improved with Klonipin Given his history, this was likely myoclonic jerks 2/2 to anoxic brain injury and would not require AEDS Getting ICU care since admission klonipin 1mg twice daily added and subsided, no longer on Klonipin Continue Mechanical ventilation, wean as able Still on Propofol 2/2 tachypnea when not sedated Spiking fevers, possible central fevers, ID following Decadron discontinued Initial CT head with cerebral edema noted and loss of balderas white differentiation Repeat CT with cortical sulci more visible and less edema, though evidence of anoxic brain injury in basal ganglia EEG confirmed patient with brain activity, mix of delta and theta, consistent with encephalopathy No significant clinical improvement thus far Spoke with daughter extensively recently regarding lack of clinical changes Family to decide on goals of care, palliative has been involved Possibly would require trach, vent, peg vs. compassionate extubation Critical Care Time 35 mins
--- NOTE | 2017-07-23 11:30 | PN ---
Progress Note (short form) - Note Progress Note: CC: SOB/cardiac arrest. s: remains intubated/sedated, no overnight events. bp improved Current Medications Generic Name Dose Route Start Last Admin Trade Name Freq PRN Reason Stop Dose Admin Acetaminophen 650 mg 07/14/17 16:02 07/21/17 10:46 Tylenol Oral Solution - PO 650 mg Q6H PRN Administration FEVER OR PAIN Artificial Tears 1 drop 07/12/17 15:20 Artificial Tears OU BID PRN DRY EYES Carvedilol 25 mg 07/18/17 22:00 07/22/17 21:30 Coreg - PO 25 mg BID [facility] Administration Hydralazine HCl 25 mg 07/22/17 14:00 07/23/17 06:11 Apresoline - PO 25 mg TID [facility] Administration Propofol 1,000,000 mcg in 100 mls @ 2.807 mls/hr 07/10/17 14:00 07/23/17 05: 30 Diprivan - IVPB 50 mcg/kg/min TITR [facility] 28.066 mls/hr Protocol Administration 5 MCG/KG/MIN Insulin Aspart 1 vial 07/17/17 16:30 07/23/17 06:09 Novolog Vial Sliding Scale - SQ 12 units ACHS [facility] Administration Protocol Insulin Detemir 20 units 07/17/17 22:00 07/23/17 06:10 Levemir Vial SQ 20 units BID@0700,2200 [facility] Administration Labetalol HCl 10 mg 07/09/17 11:12 07/22/17 09:05 Normodyne Injection - IVPUSH 10 mg Q4H PRN Administration HYPERTENSION Sodium Bicarbonate 1,300 mg 07/21/17 22:00 07/23/17 06:10 Sodium Bicarbonate - PO 1,300 mg TID [facility] Administration Vital Signs Temp 97.2 F L 07/23/17 04:00 Pulse 91 H 07/23/17 08:00 Resp 24 07/23/17 09:02 BP 145/71 07/23/17 08:00 Pulse Ox 100 07/23/17 09:02 Intake & Output 07/22/17 07/22/17 07/23/17 11:59 23:59 11:59 Intake Total 1153 3088.2 810 Output Total 200 100 120 Balance 953 2988.2 690 Weight 222 lb 8 oz 218 lb 8 oz Intake: IV 203 459.2 210 DIPRIVAN - 1,000,000 mcg 203 459.2 210 In 100 ml @ 5 MCG/KG/MIN 2.807 mls/hr IVPB TITR [facility] Rx#:[id number] IVPB 429 Tube Feeding 350 1000 350 Tube Irrigant 600 1200 250 Output: Urine 200 100 120 Rocha 200 100 120 Other: Voiding Method Indwelling Catheter Indwelling Catheter Indwelling Catheter Bowel Movement Yes: flexiseal Yes # Bowel Movements 250 Weight Measurement Method Built in [facility] Built in [facility] Constitutional: Yes: Well Nourished, No Distress, intubated, sedated. Eyes: No: Sclera Icterus Respiratory: Yes: mechanical breath sounds (anteriorly (pt intubated)). No: Accessory Muscle Use, Rales, Wheezes Gastrointestinal: Yes: Normal Bowel Sounds. No: Distention, Hepatomegaly, Palpable Mass, Tenderness Cardiovascular: Yes: tachcyardic, Regular Rate and Rhythm JVD: No Heart Sounds: Yes: S1, S2. No: Gallop Murmur: No: Systolic Murmur, Diastolic Murmurs) Extremities: No: Cool (feet), Cyanosis Edema: No Integumentary: No: Jaundice Neurological: No: sedated Psychiatric: No: Agitated - Other Data Labs, Other Data: Laboratory Last Values WBC 17.3 K/mm3 (4.0-10.0) H D 07/23/17 05:35 RBC 3.01 M/mm3 (4.00-5.60) L 07/23/17 05:35 Hgb 8.2 GM/dL (11.7-16.9) L 07/23/17 05:35 Hct 26.0 % (35.4-49) L 07/23/17 05:35 MCV 86.3 fl (80-96) 07/23/17 05:35 MCH 27.2 pg (25.7-33.7) 07/23/17 05:35 MCHC 31.5 g/dl (32.0-35.9) L 07/23/17 05:35 RDW 18.3 % (11.9-15.9) H 07/23/17 05:35 Plt Count 118 K/MM3 (134-434) L 07/23/17 05:35 MPV 10.1 fl (7.5-11.1) 07/23/17 05:35 Total Counted 100 07/14/17 05:00 Neutrophils % 83.8 % (42.8-82.8) H 07/23/17 05:35 Neutrophils % (Manual) 88.7 % (42.8-82.8) H 07/17/17 05:55 Band Neutrophils % 0.0 % 07/17/17 05:55 Lymphocytes % 10.9 % (8-40) D 07/23/17 05:35 Lymphocytes % (Manual) 4.1 % (8-40) L D 07/17/17 05:55 Monocytes % 3.4 % (3.8-10.2) L 07/23/17 05:35 Monocytes % (Manual) 2 % (3.8-10.2) L 07/17/17 05:55 Eosinophils % 1.2 % (0-4.5) 07/23/17 05:35 Eosinophils % (Manual) 1.0 % (0-4.5) D 07/14/17 05:00 Basophils % 0.7 % (0-2.0) 07/23/17 05:35 Basophils % (Manual) 0.0 % (0-2.0) 07/17/17 05:55 Myelocytes % (Man) 0 % (0-2) D 07/17/17 05:55 Metamyelocytes 1 % (0-2) D 07/17/17 05:55 Manual Slide Review No Result Required. 07/06/17 05:00 Hypochromia 0 07/17/17 05:55 Toxic Granulation 0 07/17/17 05:55 Dohle Bodies 0 07/17/17 05:55 Platelet Estimate Normal 07/17/17 05:55 Platelet Comment No clumping noted 07/07/17 05:00 Polychromasia 0 07/17/17 05:55 Poikilocytosis 0 07/17/17 05:55 Basophilic Stippling 0 07/17/17 05:55 Anisocytosis 0 07/17/17 05:55 Microcytosis 0 07/17/17 05:55 Macrocytosis 0 07/17/17 05:55 Spherocytes 0 07/17/17 05:55 Sickle Cells 0 07/17/17 05:55 Target Cells 0 07/17/17 05:55 Tear Drop Cells 0 07/17/17 05:55 Ovalocytes 0 07/17/17 05:55 Stomatocytes 0 07/17/17 05:55 Helmet Cells 0 07/17/17 05:55 [place] Bodies 0 07/17/17 05:55 Haslet Rings 0 07/17/17 05:55 Storm Cells 0 07/17/17 05:55 Acanthocytes (Spur) 0 07/17/17 05:55 Fragmented RBCs 0 07/17/17 05:55 Schistocytes 0 07/17/17 05:55 PT with INR 13.30 SEC (9.98-11.88) H 07/06/17 05:00 INR 1.18 (0.82-1.09) H 07/06/17 05:00 PTT (Actin FS) 20.4 SECONDS (26.9-34.4) L 07/05/17 00:45 Anticoagulation Therapy Y 07/15/17 00:15 Puncture Site Right radial 07/15/17 00:15 Patient Temperature 101.3 07/08/17 09:49 ABG pH 7.29 (7.35-7.45) L 07/15/17 00:15 ABG pCO2 at Pt Temp 22.5 mmHg (35-45) L 07/15/17 00:15 ABG pO2 at Pt Temp 119.0 mmHg (80-100) H D 07/15/17 00:15 ABG HCO3 10.6 meq/L (22-26) L* 07/15/17 00:15 ABG O2 Sat (Measured) 97.8 % (90-98.9) 07/15/17 00:15 ABG O2 Content 16.6 % vol (15-22) 07/15/17 00:15 ABG Base Excess -14.2 meq/l (-2-2) L* 07/15/17 00:15 Sorin Test Y 07/15/17 00:15 VBG pH 6.98 (7.32-7.42) L* 07/05/17 01:00 POC VBG pCO2 69.6 mmHg (38-52) H* 07/05/17 01:00 POC VBG pO2 49.8 mmHg (28-48) H 07/05/17 01:00 Mixed VBG HCO3 15.6 meq/L (19-25) L 07/05/17 01:00 Carboxyhemoglobin 0.2 gm% (0.5-2.0) L 07/05/17 06:00 Methemoglobin 1.0 % (0.4-1.5) 07/05/17 06:00 O2 Delivery Device Y 07/15/17 00:15 Oxygen Flow Rate 30% 07/15/17 00:15 Vent Mode Y 07/15/17 00:15 Vent Rate 16 07/15/17 00:15 Mechanical Rate Y 07/15/17 00:15 PEEP 5.0 cmH2O 07/15/17 00:15 Pressure Support Vent 500 07/15/17 00:15 Sodium 143 mmol/L (136-145) 07/23/17 05:35 Potassium 3.4 mmol/L (3.5-5.1) L 07/23/17 05:35 Chloride 116 mmol/L (98-107) H 07/23/17 05:35 Carbon Dioxide 10 mmol/L (21-32) L D 07/23/17 05:35 Anion Gap 17 (8-16) H 07/23/17 05:35 BUN 68 mg/dL (7-18) H D 07/23/17 05:35 Creatinine 3.2 mg/dL (0.7-1.3) H D 07/23/17 05:35 Creat Clearance w eGFR 32.72 (>60) 07/21/17 06:05 POC Glucometer 385.45743 UNITS (80-120) 07/22/17 17:00 Random Glucose 392 mg/dL (74-106) H* D 07/23/17 05:35 Fasting Glucose 535 mg/dL (70-105) H* 07/14/17 14:45 Lactic Acid 0.1 mmol/L (0.4-2.0) L 07/11/17 08:00 Calcium 6.9 mg/dL (8.5-10.1) L* 07/23/17 05:35 Phosphorus 4.6 mg/dL (2.5-4.9) D 07/23/17 05:35 Magnesium 2.1 mg/dL (1.8-2.4) D 07/23/17 05:35 Total Bilirubin 0.8 mg/dL (0.2-1.0) D 07/21/17 06:05 Direct Bilirubin 0.4 mg/dL (0.0-0.2) H D 07/12/17 05:35 AST 53 U/L (15-37) H 07/21/17 06:05 ALT 55 U/L (12-78) 07/21/17 06:05 Alkaline Phosphatase 90 U/L (45-117) D 07/21/17 06:05 Creatine Kinase 237 IU/L (39-308) 07/07/17 13:00 Creatine Kinase Index 0.5 % (0.0-5.0) 07/07/17 13:00 CK-MB (CK-2) 1.282 ng/mL (0.5-3.6) 07/07/17 13:00 Troponin I 1.09 ng/ml (0.00-0.05) H* 07/07/17 13:00 B-Natriuretic Peptide 21677.37 pg/ml (5-125) H 07/05/17 00:45 Total Protein 5.0 g/dl (6.4-8.2) L 07/21/17 06:05 Albumin 1.7 g/dl (3.4-5.0) L 07/21/17 06:05 Urine Color Ltyellow 07/14/17 19:00 Urine Appearance Clear 07/14/17 19:00 Urine pH 6.0 (5.0-8.0) 07/14/17 19:00 Ur Specific [place] 1.013 (1.001-1.035) 07/14/17 19:00 Urine Protein 2+ (NEGATIVE) H 07/14/17 19:00 Urine Glucose (UA) 3+ (NEGATIVE) H 07/14/17 19:00 Urine Ketones Negative (NEGATIVE) 07/14/17 19:00 Urine Blood 1+ (NEGATIVE) H 07/14/17 19:00 Urine Nitrite Negative (NEGATIVE) 07/14/17 19:00 Urine Bilirubin Negative (NEGATIVE) 07/14/17 19:00 Urine Urobilinogen Negative mg/dL (0.2-1.0) 07/14/17 19:00 Ur Leukocyte Esterase Negative (NEGATIVE) 07/14/17 19:00 Urine WBC (Auto) 3 /hpf (3-5) 07/14/17 19:00 Urine RBC (Auto) 2 /hpf (0-3) 07/14/17 19:00 Ur Epithelial Cells Rare /HPF (FEW) 07/12/17 12:04 Hyaline Casts 1 /lpf 07/05/17 02:10 Urine Mucus Rare 07/14/17 19:00 Ur Random Sodium 57 MMOL/L 07/06/17 14:50 Ur Random Potassium 32.6 MMOL/L 07/06/17 14:50 Ur Random Chloride 43 MMOL/L 07/06/17 14:50 Ur Random Urea Nitrogn 380 mg/dL 07/06/17 14:50 Gastric Occult Blood Positive 07/10/17 16:45 Tobramycin Trough 3.1 ug/ml (0.0-2.0) H* 07/06/17 05:00 Random Vancomycin < 0.800 ug/ml 07/05/17 05:00 Beta-(1,3)-D-Glucan 41 pg/mL (<80) 07/05/17 08:05 Blood Type B POSITIVE 07/10/17 19:40 Antibody Screen Negative 07/10/17 19:20 Crossmatch See Detail 07/10/17 19:20 cxr 07/22: lung campos remain clear. tele: sr MPI 05/26: no ischemia, EF 33% (global Echo 06/2017: nl lv size. LV fn mod-sev reduced (global). nl rv size/fn. 1+ mac/mr/tr. rvsp 30-40. + pleural effusion. Echo 05/26 (): mod LVE, mild global LV hypo; nl RV; mild LAE; mild MR Echo 12/24: nl LV and RV, nl valves est cct 35 mins a/p: 56 yo smoker with h/o mild lv dysfunction, htn, hl, ckd, hiv, dm p/w progressive sob and subsequent PEA arrest with EMS (s/p resuscitation). acute hypoxic resp failure, acute on chronic syst CHF, NSTEMI, cardiac arrest ( PEA): -initially with marked chf on cxr in setting of several days of worsening sob -suspect PEA due to severe chf decompensation with acute hypoxia -suspected anoxic brain injury now, neuro following -cxr w/o chf, no clinical chf, did not respond to brief trial of lasix gtt -NSTEMI trop trend here with peak 1.3 (xytc-[id number] pattern) -ECG initially here with borderline ST changes for ischemia (likely secondary)-- ? underlying CAD with balanced ischemia on nuclear. -repeat echo here with worsened systolic function -ischemia w/u on hold due to poor neurological function/poor prognosis -cont beta blockade. added hydralazine 07/21. -no NORRIS/ARB given FLORECITA -remains without suspected volume/chf--no diuresis for now -may need trach vs compassionate wean from vent--awaiting decision from family FLORECITA on CKD, hypernatremia: -baseline creat here 2.8 in 05/26. initially 2.4 on presentation to ER, up to 6s here. -suspect hypoperfusion/atn as cause -holding lasix -renal following, renal fxn improved to 2s but now rising today HTN: -07/16 bp elevated at times, increase coreg to 12.5 bid - 07/17: bp labile today on higher dose of coreg. will con't to monitor. - 07/18: bp stable today, but running high. will uptitrate coreg. - 07/21: still with suboptimal bp control. Will add hydralazine. - 07/22: still with suboptimal bp control. Will increase hydralazine. - 07/23: bp better, cont current meds HIV/Hep C: -per ID team anemia, gib: -likely had ugib -hgb improved s/p prbcs, now trending down again--? recurrent bleeding. -monitor labs, consider transfusion if hgb <8, if in line with family's goals of care decisions--per crit care ongoing discussions
--- NOTE | 2017-07-23 11:47 | PN ---
Physical Exam: SUBJECTIVE: Patient seen and examined patient resting in bed, intubated, on propofol, unresponsive. no change in condition. afebrile and hemodynamically stable. appears to be in DKA again OBJECTIVE: Vital Signs Period Temp Pulse Resp BP Sys/[place] Castillo Pulse Ox Last 24 Hr 97.2 F-100.2 F 69-109 23-32 113-192/55-86 100-100 No change. GENERAL: Intubated and sedated, anasarca HEAD: Normal with no signs of trauma. EYES: sclera anicteric, conjunctiva clear. No ptosis. fixed downward left gaze. Pt does not track. pupils pinpoint but reactive to light. ENT: oropharynx clear without exudates, moist mucous membranes. NECK: Trachea midline, full range of motion, supple. LUNGS: Breath sounds equal, clear to auscultation bilaterally, no wheezes, no crackles, no accessory muscle use. HEART: Regular rate and rhythm, S1, S2 without murmur, rub or gallop. ABDOMEN: Soft, nondistended, normoactive bowel sounds, no guarding, no rebound, no hepatosplenomegaly, no masses. EXTREMITIES: 2+ pulses, warm, well-perfused, no edema. NEUROLOGICAL: Intubated and sedated PSYCH: Intubated and sedated SKIN: Warm, dry Laboratory Results - last 24 hr 07/22/17 07/23/17 07/23/17 17:00 05:35 05:35 WBC 17.3 H D RBC 3.01 L Hgb 8.2 L Hct 26.0 L MCV 86.3 MCH 27.2 MCHC 31.5 L RDW 18.3 H Plt Count 118 L MPV 10.1 Neutrophils % 83.8 H Lymphocytes % 10.9 D Monocytes % 3.4 L Eosinophils % 1.2 Basophils % 0.7 Sodium 143 Potassium 3.4 L Chloride 116 H Carbon Dioxide 10 L D Anion Gap 17 H BUN 68 H D Creatinine 3.2 H D POC Glucometer [phone] Random Glucose 392 H* D Calcium 6.9 L* Phosphorus 4.6 D Magnesium 2.1 D Active Medications Generic Name Dose Route Start Last Admin Trade Name Freq PRN Reason Stop Dose Admin Acetaminophen 650 mg 07/14/17 16:02 07/21/17 10:46 Tylenol Oral Solution - PO 650 mg Q6H PRN Administration FEVER OR PAIN Artificial Tears 1 drop 07/12/17 15:20 Artificial Tears OU BID PRN DRY EYES Carvedilol 25 mg 07/18/17 22:00 07/22/17 21:30 Coreg - PO 25 mg BID PAULINE Administration Hydralazine HCl 25 mg 07/22/17 14:00 07/23/17 06:11 Apresoline - PO 25 mg TID PAULINE Administration Propofol 1,000,000 mcg in 100 mls @ 2.807 mls/hr 07/10/17 14:00 07/23/17 05: 30 Diprivan - IVPB 50 mcg/kg/min TITR PAULINE 28.066 mls/hr Protocol Administration 5 MCG/KG/MIN Insulin Aspart 1 vial 07/17/17 16:30 07/23/17 06:09 Novolog Vial Sliding Scale - SQ 12 units ACHS PAULINE Administration Protocol Insulin Detemir 20 units 07/17/17 22:00 07/23/17 06:10 Levemir Vial SQ 20 units BID@0700,2200 PAULINE Administration Labetalol HCl 10 mg 07/09/17 11:12 07/22/17 09:05 Normodyne Injection - IVPUSH 10 mg Q4H PRN Administration HYPERTENSION Sodium Bicarbonate 1,300 mg 07/21/17 22:00 07/23/17 06:10 Sodium Bicarbonate - PO 1,300 mg TID PAULINE Administration ASSESSMENT/PLAN: Pt is a 56 M w/ PMH HTN, HL, DM, CKD, and HIV on HAART who presented to ED with cardiopulmonary arrest. Pt is now intubated. Prior to arriving at the ED, pt had been complaining of wheezing and SOB. On arriving in ED, pt was in arrest and was coded for 5 min. Cardio *s/p cardiac arrest -RAVEN for at least 5 min -Echo showed moderate-severe LV dysfunction -hemodynamically stable Pulm: *needs trach if family does not wish to compassionately extubate. Neuro *Severe Anoxic brain injury -Neuro on board -Head CT revealed loss of balderas/white junction, and sulcal effacement, but no sign of herniation. -appears to have bainstem function but unlikely has any higher order cognition. -EEG abnormal -holding sedation -prospect for improvement poor. ID -HIV positive -pt sees Dr. Vital as outpt -has been resistant to several medications -HIV meds on hold for now -Leukocytosis -ID signed off Nephro -FLORECITA on CKD -Nephro on board -FLORECITA likely worsened by arrest -not an HD candidate at this time -Hold lasix for now Endocrine *DKA again -gap 17, bicarb 10, bgm 392 -insulin drip, bgm q 1 h, ns @ 75, hold feeds -repeat bmp FEN -on NS -Hypernatremia. Hypokalemia. Hypocalcemia. Repleting -Intubated sedated PPx -Hep SubQ Dispo -admitted to ICU -pending goals of care discussion. Pt will either need extubation or trach/PEG DNR Problem List - Problems (1) FLORECITA (acute kidney injury) Code(s): N17.9 - ACUTE KIDNEY FAILURE, UNSPECIFIED (2) Acute on chronic diastolic CHF (congestive heart failure) Code(s): I50.33 - ACUTE ON CHRONIC DIASTOLIC (CONGESTIVE) HEART FAILURE (3) Anoxic brain damage Code(s): G93.1 - ANOXIC BRAIN DAMAGE, NOT ELSEWHERE CLASSIFIED (4) CHF (congestive heart failure) Code(s): I50.9 - HEART FAILURE, UNSPECIFIED Qualifiers: Congestive heart failure type: unspecified congestive heart failure type Congestive heart failure chronicity: unspecified congestive heart failure chronicity Qualified Code(s): I50.9 - Heart failure, unspecified (5) Cardiopulmonary arrest with successful resuscitation Code(s): I46.9 - CARDIAC ARREST, CAUSE UNSPECIFIED (6) Chronic kidney disease Code(s): N18.9 - CHRONIC KIDNEY DISEASE, UNSPECIFIED (7) Hypertension Code(s): I10 - ESSENTIAL (PRIMARY) HYPERTENSION (8) Pneumonia Code(s): J18.9 - PNEUMONIA, UNSPECIFIED ORGANISM (9) Respiratory failure Code(s): J96.90 - RESPIRATORY FAILURE, UNSP, UNSP W HYPOXIA OR HYPERCAPNIA (10) Sepsis Code(s): A41.9 - SEPSIS, UNSPECIFIED ORGANISM (11) Uncontrolled diabetes mellitus Code(s): E11.65 - TYPE 2 DIABETES MELLITUS WITH HYPERGLYCEMIA (12) Accelerated essential hypertension Code(s): I10 - ESSENTIAL (PRIMARY) HYPERTENSION (13) Angina pectoris Code(s): I20.9 - ANGINA PECTORIS, UNSPECIFIED (14) Chest pain Code(s): R07.9 - CHEST PAIN, UNSPECIFIED (15) Edema of right foot Code(s): R60.0 - LOCALIZED EDEMA (16) Fatty liver Code(s): K76.0 - FATTY (CHANGE OF) LIVER, NOT ELSEWHERE CLASSIFIED (17) Leg edema Code(s): R60.0 - LOCALIZED EDEMA (18) Nicotine dependence Code(s): F17.200 - NICOTINE DEPENDENCE, UNSPECIFIED, UNCOMPLICATED (19) Opiate dependence, continuous Code(s): F11.20 - OPIOID DEPENDENCE, UNCOMPLICATED (20) Right leg swelling Code(s): M79.89 - OTHER SPECIFIED SOFT TISSUE DISORDERS (21) Anxiety and depression Code(s): F41.8 - OTHER SPECIFIED ANXIETY DISORDERS (22) Chronic kidney disease Code(s): N18.9 - CHRONIC KIDNEY DISEASE, UNSPECIFIED (23) Diabetes Code(s): E11.9 - TYPE 2 DIABETES MELLITUS WITHOUT COMPLICATIONS (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, managed as type 1 Code(s): E13.9 - OTHER SPECIFIED DIABETES MELLITUS WITHOUT COMPLICATIONS (25) Diabetes 1.5, managed as type 2 Code(s): E13.9 - OTHER SPECIFIED DIABETES MELLITUS WITHOUT COMPLICATIONS (26) GERD (gastroesophageal reflux disease) Code(s): K21.9 - GASTRO-ESOPHAGEAL REFLUX DISEASE WITHOUT ESOPHAGITIS (27) HIV (human immunodeficiency virus infection) Code(s): Z21 - ASYMPTOMATIC HUMAN IMMUNODEFICIENCY VIRUS INFECTION STATUS (28) HTN (hypertension) Code(s): I10 - ESSENTIAL (PRIMARY) HYPERTENSION (29) Hepatitis C Code(s): B19.20 - UNSPECIFIED VIRAL HEPATITIS C WITHOUT HEPATIC COMA (30) Insulin dependent diabetes mellitus Code(s): E11.9 - TYPE 2 DIABETES MELLITUS WITHOUT COMPLICATIONS; Z79.4 - RISK REDUCTION COUNSELOR (CURRENT) USE OF INSULIN (31) Opiate dependence Code(s): F11.20 - OPIOID DEPENDENCE, UNCOMPLICATED Visit type - Emergency Visit Emergency Visit: Yes ED Registration Date: 07/05/17 Care time: The patient presented to the Emergency Department on the above date and was hospitalized for further evaluation of their emergent condition. - New Patient This patient is new to me today: Yes Date on this admission: 07/23/17 - Critical Care Critical Care patient: Yes Total Critical Care Time (in minutes): 35 Critical Care Statement: The care of this patient involved high complexity decision making to prevent further life threatening deterioration of the patient 's condition and/or to evaluate & treat vital organ system(s) failure or risk of failure. - Discharge Referral Referred to [facility] No
[2017-07-23] MEDS ORDERED: INSULIN REGULAR 100 UNITS in SODIUM CHLORIDE 99 ML IVPB SCH (12:00)
[2017-07-23] MEDS ORDERED: SODIUM CHLORIDE 1,000 ML IV SCH (12:00)
--- NOTE | 2017-07-23 12:19 | PN ---
Teaching Attending Note Name of Resident: Yessenia Al ATTENDING PHYSICIAN STATEMENT I saw and evaluated the patient. I reviewed the resident's note and discussed the case with the resident. I agree with the resident's findings and plan as documented. SUBJECTIVE: Patient seen and examined in the ICU. Remains intubated and poorly responsive. No significant change in overall condition. Intake & Output 07/20/17 07/21/17 07/22/17 07/23/17 23:59 23:59 23:59 23:59 Intake Total 5672.8 5906.7 4241.2 810 Output Total 3300 2300 300 120 Balance 2372.8 3606.7 3941.2 690 Weight 212 lb 1 oz 219 lb 4 oz 222 lb 8 oz 218 lb 8 oz Last Vital Signs Temp Pulse Resp BP Pulse Ox 97.2 F L 91 H 24 145/71 100 07/23/17 04:00 07/23/17 08:00 07/23/17 09:02 07/23/17 08:00 07/23/17 09:02 Active Medications Acetaminophen (Tylenol Oral Solution -) 650 mg PO Q6H PRN PRN Reason: FEVER OR PAIN Last Admin: 07/21/17 10:46 Dose: 650 mg Artificial Tears (Artificial Tears) 1 drop OU BID PRN PRN Reason: DRY EYES Carvedilol (Coreg -) 25 mg PO BID PAULINE Last Admin: 07/22/17 21:30 Dose: 25 mg Hydralazine HCl (Apresoline -) 25 mg PO TID PAULINE Last Admin: 07/23/17 06:11 Dose: 25 mg Propofol (Diprivan -) 1,000,000 mcg in 100 mls @ 2.807 mls/hr IVPB TITR PAULINE; 5 MCG/KG/MIN PRN Reason: Protocol Last Admin: 07/23/17 05:30 Dose: 50 mcg/kg/min, 28.066 mls/hr Insulin Human Regular 100 (units/ Sodium Chloride) 100 mls @ 9.91 mls/hr IVPB TITR PAULINE; 0.1 UNITS/KG/HR PRN Reason: Protocol Sodium Chloride (Normal Saline -) 1,000 mls @ 75 mls/hr IV ASDIR PAULINE Labetalol HCl (Normodyne Injection -) 10 mg IVPUSH Q4H PRN PRN Reason: HYPERTENSION Last Admin: 07/22/17 09:05 Dose: 10 mg Sodium Bicarbonate (Sodium Bicarbonate -) 1,300 mg PO TID PAULINE Last Admin: 07/23/17 06:10 Dose: 1,300 mg Gen: Intubated, poorly responsive Heart: RRR Lung: scattered rhonchi Abd: soft, nontender Ext: (+) edema IMP: S/P Cardiopulmonary Arrest with subsequent Anoxic Brain Injury Acute on Chronic Systolic Heart Failure +Troponins Acute on Chronic Renal Failure Lactic Acidosis resolved HTN HIV Hep C Smoker - completed empiric antibiotics - monitor urine output, creatinine - Daily sedation vacations to assess mental status - Taper FiO2 to keep SpO2 >90% - Wean trials as tolerated - Enteral feeds - DVT/GI prophylaxis - poor overall prognosis for meaningful recovery, previously discussed with daughter, she had stated that pt would not want to be kept alive without quality of life, awaiting decision from family about further GOC Dr Glez Critical care time spent in reviewing chart, evaluating patient and formulating plan 40 min
[2017-07-23] MEDS ORDERED: POTASSIUM CHLORIDE ORAL LIQUID 20 MEQ/15 ML NGT ONE (17:33)
--- NOTE | 2017-07-23 17:33 | PN ---
Progress Note, Physician History of Present Illness: Pt seen and examined at bedside. He remains in the ICU. Pt remains intubated. Family have not decided about GOC. - Current Medication List Current Medications: Active Medications Acetaminophen (Tylenol Oral Solution -) 650 mg PO Q6H PRN PRN Reason: FEVER OR PAIN Last Admin: 07/21/17 10:46 Dose: 650 mg Artificial Tears (Artificial Tears) 1 drop OU BID PRN PRN Reason: DRY EYES Carvedilol (Coreg -) 25 mg PO BID PAULINE Last Admin: 07/23/17 10:00 Dose: 25 mg Hydralazine HCl (Apresoline -) 25 mg PO TID PAULINE Last Admin: 07/23/17 14:00 Dose: 25 mg Propofol (Diprivan -) 1,000,000 mcg in 100 mls @ 2.807 mls/hr IVPB TITR PAULINE; 5 MCG/KG/MIN PRN Reason: Protocol Last Admin: 07/23/17 14:35 Dose: 50 mcg/kg/min, 28.066 mls/hr Insulin Human Regular 100 (units/ Sodium Chloride) 100 mls @ 9.91 mls/hr IVPB TITR PAULINE; 0.1 UNITS/KG/HR PRN Reason: Protocol Last Admin: 07/23/17 15:58 Dose: 0.1 units/kg/hr, 9.91 mls/hr Sodium Chloride (Normal Saline -) 1,000 mls @ 75 mls/hr IV ASDIR PAULINE Last Admin: 07/23/17 15:58 Dose: 75 mls/hr Labetalol HCl (Normodyne Injection -) 10 mg IVPUSH Q4H PRN PRN Reason: HYPERTENSION Last Admin: 07/22/17 09:05 Dose: 10 mg Sodium Bicarbonate (Sodium Bicarbonate -) 1,300 mg PO TID PAULINE Last Admin: 07/23/17 15:58 Dose: 1,300 mg - Objective Vital Signs: Vital Signs Temperature 97.2 F L 07/23/17 04:00 Pulse Rate 93 H 07/23/17 09:15 Respiratory Rate 32 H 07/23/17 15:40 Blood Pressure 145/71 07/23/17 08:00 O2 Sat by Pulse Oximetry (%) 99 07/23/17 09:15 Constitutional: Yes: Calm Eyes: Yes: Conjunctiva Clear HENT: Yes: Atraumatic Cardiovascular: Yes: S1, S2 Respiratory: Yes: Mechanically Ventilated Gastrointestinal: Yes: Soft Genitourinary: Yes: Rocha Present Edema: Yes Edema: LUE: Trace, RUE: Trace, LLE: Trace, RLE: Trace Neurological: Yes: Lethargy Labs: CBC, BMP 07/23/17 05:35 07/23/17 05:35 INR, PTT INR 1.18 (0.82-1.09) H 07/06/17 05:00 Problem List - Problems (1) FLORECITA (acute kidney injury) Code(s): N17.9 - ACUTE KIDNEY FAILURE, UNSPECIFIED (2) CHF (congestive heart failure) Code(s): I50.9 - HEART FAILURE, UNSPECIFIED Qualifiers: Congestive heart failure type: unspecified congestive heart failure type Congestive heart failure chronicity: unspecified congestive heart failure chronicity Qualified Code(s): I50.9 - Heart failure, unspecified (3) Cardiopulmonary arrest with successful resuscitation Code(s): I46.9 - CARDIAC ARREST, CAUSE UNSPECIFIED (4) Chronic kidney disease Code(s): N18.9 - CHRONIC KIDNEY DISEASE, UNSPECIFIED (5) Hypertension Code(s): I10 - ESSENTIAL (PRIMARY) HYPERTENSION (6) Chronic kidney disease Code(s): N18.9 - CHRONIC KIDNEY DISEASE, UNSPECIFIED Assessment/Plan Current Medications Generic Name Dose Route Start Last Admin Trade Name Freq PRN Reason Stop Dose Admin Acetaminophen 650 mg 07/14/17 16:02 07/21/17 10:46 Tylenol Oral Solution - PO 650 mg Q6H PRN Administration FEVER OR PAIN Artificial Tears 1 drop 07/12/17 15:20 Artificial Tears OU BID PRN DRY EYES Carvedilol 25 mg 07/18/17 22:00 07/23/17 10:00 Coreg - PO 25 mg BID PAULINE Administration Hydralazine HCl 25 mg 07/22/17 14:00 07/23/17 14:00 Apresoline - PO 25 mg TID PAULINE Administration Propofol 1,000,000 mcg in 100 mls @ 2.807 mls/hr 07/10/17 14:00 07/23/17 14: 35 Diprivan - IVPB 50 mcg/kg/min TITR PAULINE 28.066 mls/hr Protocol Administration 5 MCG/KG/MIN Insulin Human Regular 100 100 mls @ 9.91 mls/hr 07/23/17 12:00 07/23/17 15:58 units/ Sodium Chloride IVPB 0.1 units/kg/hr TITR PAULINE 9.91 mls/hr Protocol Administration 0.1 UNITS/KG/HR Sodium Chloride 1,000 mls @ 75 mls/hr 07/23/17 12:00 07/23/17 15:58 Normal Saline - IV 75 mls/hr ASDIR PAULINE Administration Labetalol HCl 10 mg 07/09/17 11:12 07/22/17 09:05 Normodyne Injection - IVPUSH 10 mg Q4H PRN Administration HYPERTENSION Sodium Bicarbonate 1,300 mg 07/21/17 22:00 07/23/17 15:58 Sodium Bicarbonate - PO 1,300 mg TID PAULINE Administration Impression 1. FLORECITA 2. CKD 3. cardiac arrest 4. CHF 5. HIV 6. hypomagnesemia 7. anoxic brain injury 8. anemia 9. hyperglycemia 10. HTN 11. acidosis Plan - renal function is worsening - change fluids from NS to 1/2ns with 50 mew of bicarb - replace potassium - family are still discussing GOC - will follow - vent support - discussed with ICU team - likely ATN from hypotension during arrest, renal function is improving - cont to monitor urine output
[2017-07-23] MEDS ORDERED: SODIUM BICARBONATE 8.4% 50 MEQ/50 ML VIAL IV SCH (17:45)
[2017-07-23] MEDS ORDERED: DEXTROSE 5%-0.45% SALINE 1,000 ML IV SCH (17:45)
[2017-07-23] MEDS ORDERED: SODIUM BICARBONATE 8.4% - 50 ML ONE (18:19)
--- NOTE | 2017-07-23 20:00 | PN ---
Progress Note, Physician History of Present Illness: Pt remains intubated Pt w/ poor prognosis - Current Medication List Current Medications: Active Medications Acetaminophen (Tylenol Oral Solution -) 650 mg PO Q6H PRN PRN Reason: FEVER OR PAIN Last Admin: 07/21/17 10:46 Dose: 650 mg Artificial Tears (Artificial Tears) 1 drop OU BID PRN PRN Reason: DRY EYES Carvedilol (Coreg -) 25 mg PO BID PAULINE Last Admin: 07/23/17 10:00 Dose: 25 mg Hydralazine HCl (Apresoline -) 25 mg PO TID PAULINE Last Admin: 07/23/17 14:00 Dose: 25 mg Propofol (Diprivan -) 1,000,000 mcg in 100 mls @ 2.807 mls/hr IVPB TITR PAULINE; 5 MCG/KG/MIN PRN Reason: Protocol Last Admin: 07/23/17 14:35 Dose: 50 mcg/kg/min, 28.066 mls/hr Insulin Human Regular 100 (units/ Sodium Chloride) 100 mls @ 9.91 mls/hr IVPB TITR PAULINE; 0.1 UNITS/KG/HR PRN Reason: Protocol Last Admin: 07/23/17 15:58 Dose: 0.1 units/kg/hr, 9.91 mls/hr Dextrose (D5w -) 1,000 mls @ 75 mls/hr IV Q13H PAULINE Sodium Bicarbonate 50 meq/ (Sodium Chloride) 1,050 mls @ 75 mls/hr IVPB Q14H PAULINE Labetalol HCl (Normodyne Injection -) 10 mg IVPUSH Q4H PRN PRN Reason: HYPERTENSION Last Admin: 07/22/17 09:05 Dose: 10 mg Sodium Bicarbonate (Sodium Bicarbonate -) 1,300 mg PO TID PAULINE Last Admin: 07/23/17 15:58 Dose: 1,300 mg - Objective Vital Signs: Vital Signs Temperature 97.2 F L 07/23/17 04:00 Pulse Rate 85 07/23/17 18:00 Respiratory Rate 30 H 07/23/17 18:14 Blood Pressure 146/60 07/23/17 18:00 O2 Sat by Pulse Oximetry (%) 100 07/23/17 19:57 HENT: Yes: WNL Neck: Yes: WNL, Supple Cardiovascular: Yes: WNL, Regular Rate and Rhythm Respiratory: Yes: Diminished Gastrointestinal: Yes: WNL, Normal Bowel Sounds, Soft Labs: CBC, BMP 07/23/17 05:35 07/23/17 05:35 INR, PTT INR 1.18 (0.82-1.09) H 07/06/17 05:00 Problem List - Problems (1) Respiratory failure Assessment/Plan: Poor prognosis Cont nebulizers Awaiting family decision about terminal weaning Code(s): J96.90 - RESPIRATORY FAILURE, UNSP, UNSP W HYPOXIA OR HYPERCAPNIA (2) Cardiopulmonary arrest with successful resuscitation Assessment/Plan: Pt remains intubated Pt w/ anoxic brain injury Remains intubated Code(s): I46.9 - CARDIAC ARREST, CAUSE UNSPECIFIED (3) Uncontrolled diabetes mellitus Assessment/Plan: Cont sliding scale w/ coverage Code(s): E11.65 - TYPE 2 DIABETES MELLITUS WITH HYPERGLYCEMIA (4) Acute on chronic diastolic CHF (congestive heart failure) Assessment/Plan: Euvolemic Code(s): I50.33 - ACUTE ON CHRONIC DIASTOLIC (CONGESTIVE) HEART FAILURE (5) Anemia Assessment/Plan: S/P transfusion of PRBC's However H/H decreasing again Code(s): D64.9 - ANEMIA, UNSPECIFIED
[2017-07-23] MEDS ORDERED: HEMOQUE TEST 1 EACH EACH ONE (21:07)
[2017-07-23] MEDS: SODIUM BICARBONATE 8.4% - 50 MEQ in SODIUM CHLORIDE 0.45% 1,000 ML IVPB SCH (21:26)
[2017-07-23] MEDS: DEXTROSE 5%-WATER - 1,000 ML IV SCH ×2 (21:27→21:28)
[2017-07-24 06:06] LABS: BASO % 0.3 % (0-2.0); EOS % 1.4 % (0-4.5); MCH 27.5 pg (25.7-33.7); MEAN CELL VOLUME 86.2 fl (80-96); MEAN PLT VOLUME 9.6 fl (7.5-11.1); NEUT % 79.7 % (42.8-82.8); PLATELET COUNT 111 K/MM3 (134-434); RDW 18.7 % (11.9-15.9); WHITE BLOOD COUNT 13.8 K/mm3 (4.0-10.0)
[2017-07-24 06:38] LABS: ALBUMIN 1.4 g/dl (3.4-5.0); ALK PHOS 153 U/L (45-117); ANION GAP 18 (8-16); BILIRUBIN,TOTAL 0.6 mg/dL (0.2-1.0); CO2 9 mmol/L (21-32); CREATININE 4.6 mg/dL (0.7-1.3); GLUCOSE,RANDOM 177 mg/dL (74-106); MAGNESIUM 2.3 mg/dL (1.8-2.4); PHOSPHOROUS 6.1 mg/dL (2.5-4.9); SGOT/AST 107 U/L (15-37); SGPT/ALT 100 U/L (12-78); TOT PROT 4.8 g/dl (6.4-8.2)
[2017-07-24 07:04] LABS: CALCIUM 7.1 mg/dL (8.5-10.1)
[2017-07-24] MEDS: PROPOFOL 1,000,000 MCG/100 ML VIAL IVPB SCH ×4 (07:07→19:02)
[2017-07-24] MEDS: SODIUM BICARBONATE 650 MG TABLET PO SCH ×3 (07:24→21:12)
[2017-07-24] MEDS: hydrALAZINE HCL 25 MG TABLET (FP) PO SCH ×3 (07:24→21:12)
--- NOTE | 2017-07-24 07:29 | PN ---
Progress Note, Physician Chief Complaint: ID Remains comatose on the vent Fevers continue on an off - Current Medication List Current Medications: Active Medications Acetaminophen (Tylenol Oral Solution -) 650 mg PO Q6H PRN PRN Reason: FEVER OR PAIN Last Admin: 07/21/17 10:46 Dose: 650 mg Artificial Tears (Artificial Tears) 1 drop OU BID PRN PRN Reason: DRY EYES Carvedilol (Coreg -) 25 mg PO BID [facility] Last Admin: 07/23/17 21:30 Dose: 25 mg Hydralazine HCl (Apresoline -) 25 mg PO TID PAULINE Last Admin: 07/23/17 21:31 Dose: 25 mg Propofol (Diprivan -) 1,000,000 mcg in 100 mls @ 2.807 mls/hr IVPB TITR PAULINE; 5 MCG/KG/MIN PRN Reason: Protocol Last Admin: 07/23/17 23:43 Dose: 50 mcg/kg/min, 28.066 mls/hr Insulin Human Regular 100 (units/ Sodium Chloride) 100 mls @ 9.91 mls/hr IVPB TITR PAULINE; 0.1 UNITS/KG/HR PRN Reason: Protocol Last Admin: 07/23/17 15:58 Dose: 0.1 units/kg/hr, 9.91 mls/hr Sodium Bicarbonate 50 meq/ (Sodium Chloride) 1,050 mls @ 75 mls/hr IVPB Q14H [facility] Last Admin: 07/23/17 21:26 Dose: 75 mls/hr Labetalol HCl (Normodyne Injection -) 10 mg IVPUSH Q4H PRN PRN Reason: HYPERTENSION Last Admin: 07/22/17 09:05 Dose: 10 mg Sodium Bicarbonate (Sodium Bicarbonate -) 1,300 mg PO TID PAULINE Last Admin: 07/23/17 21:31 Dose: 1,300 mg - Objective Vital Signs: Vital Signs Temperature 99.9 F H 07/24/17 02:00 Pulse Rate 76 07/24/17 06:00 Respiratory Rate 28 H 07/24/17 06:30 Blood Pressure 118/45 07/24/17 06:00 O2 Sat by Pulse Oximetry (%) 100 07/23/17 21:00 Constitutional: Yes: Other (INtubated) Cardiovascular: Yes: S1, S2 Respiratory: Yes: WNL, Regular, CTA Bilaterally Gastrointestinal: Yes: Soft Labs: CBC, BMP 07/24/17 05:55 07/24/17 05:55 INR, PTT INR 1.18 (0.82-1.09) H 07/06/17 05:00 Problem List - Problems (1) Cardiopulmonary arrest with successful resuscitation Code(s): I46.9 - CARDIAC ARREST, CAUSE UNSPECIFIED (2) Uncontrolled diabetes mellitus Code(s): E11.65 - TYPE 2 DIABETES MELLITUS WITH HYPERGLYCEMIA (3) Sepsis Code(s): A41.9 - SEPSIS, UNSPECIFIED ORGANISM (4) Chronic kidney disease Code(s): N18.9 - CHRONIC KIDNEY DISEASE, UNSPECIFIED (5) Hypertension Code(s): I10 - ESSENTIAL (PRIMARY) HYPERTENSION Assessment/Plan Laboratory Tests 07/24/17 07/24/17 05:55 05:55 WBC 13.8 H Hgb 7.1 L D Hct 22.2 L Plt Count 111 L BUN 79 H Creatinine 4.6 H D Assessment Cardiopulmonary arrest in this HIV positive man with DM HPTN CKD and now Fevers with declining platelet count leukocytosis. Always the possibility of infection in this setting. Fevers may be central. Plan Will get some "surveillance" cultures but not start antibiotics
[2017-07-24] MEDS ORDERED: DEXTROSE 5%-WATER - 1,000 ML IV SCH (08:30)
[2017-07-24 09:31] LABS: ANION GAP 17 (8-16); CO2 9 mmol/L (21-32); GLUCOSE,RANDOM 125 mg/dL (74-106)
[2017-07-24 09:33] LABS: CALCIUM 7.2 mg/dL (8.5-10.1); CREATININE 4.6 mg/dL (0.7-1.3)
--- NOTE | 2017-07-24 10:05 | PN ---
Progress Note (short form) - Note Progress Note: Neurology History of Present Illness: Mr. Welch is a 56 y/o man w/ HTN, HL, DM, CKD, HIV on HAART, EF 49.5%, BIBA for SOB. Reportedly had been experiencing worsening SOB & SAMUELS w/ assoc wheezing for several days prior to admission. While in route developed further respiratory distress and in ER had agonal breathing and unresponsive. No pulse noted on stretcher transferand chest compressions were initiated. The Pt was resuscitated per ACLS protocol for approximately 5 minutes according to note, receiving epi x 2, bicarb x 2. Pt was intubated and placed on ventilator and given nebulizers and steroids. Pt admitted to the ICU s/p Cardiac Arrest and respiratory failure. The patient has been on propofol but having myoclonic twitches especially in right foot. Given his history, this is likely myoclonic jerks 2/2 to anoxic brain injury. Klonipin was started, twitching improved and not visible at this time. There is minimal pupil contriction from 3mm to 2mm and therefore does not meet criteria for brain . However, only minimal brainstem activity and no significant improvement thus far. EEG completed, showed mix of theta and beta activity, consistent with encephalopathy. Again, not brain . CT head completed and showed cerebral edema, repeated and showed improved cerebral edema likely due to steroids given. Attempts to wean propofol led to tachycardia and tachypnea. Patient being considered for palliative care as he has had no significant improvements and remains in ICU dependent on vent. I spoke to daughter in detail recently. Answered questions regarding minimal higher order cognition. They would not want to pursue trach and terminal gauger supervisor vent as well as PEG for maintain of life. Awaiting family decision on plan for care. Clinically without signficiant improvement. Spoke with ICU team. Active Medications Acetaminophen (Tylenol Oral Solution -) 650 mg PO Q6H PRN PRN Reason: FEVER OR PAIN Last Admin: 07/21/17 10:46 Dose: 650 mg Artificial Tears (Artificial Tears) 1 drop OU BID PRN PRN Reason: DRY EYES Carvedilol (Coreg -) 25 mg PO BID [facility] Last Admin: 07/23/17 21:30 Dose: 25 mg Hydralazine HCl (Apresoline -) 25 mg PO TID [facility] Last Admin: 07/24/17 07:24 Dose: 25 mg Propofol (Diprivan -) 1,000,000 mcg in 100 mls @ 2.807 mls/hr IVPB TITR PAULINE; 5 MCG/KG/MIN PRN Reason: Protocol Last Admin: 07/24/17 07:07 Dose: 50 mcg/kg/min, 28.066 mls/hr Insulin Human Regular 100 (units/ Sodium Chloride) 100 mls @ 9.91 mls/hr IVPB TITR PAULINE; 0.1 UNITS/KG/HR PRN Reason: Protocol Last Admin: 07/23/17 15:58 Dose: 0.1 units/kg/hr, 9.91 mls/hr Sodium Bicarbonate 50 meq/ (Sodium Chloride) 1,050 mls @ 75 mls/hr IVPB Q14H PAULINE Last Admin: 07/23/17 21:26 Dose: 75 mls/hr Dextrose (D5w -) 1,000 mls @ 100 mls/hr IV ASDIR PAULINE Labetalol HCl (Normodyne Injection -) 10 mg IVPUSH Q4H PRN PRN Reason: HYPERTENSION Last Admin: 07/22/17 09:05 Dose: 10 mg Sodium Bicarbonate (Sodium Bicarbonate -) 1,300 mg PO TID PAULINE Last Admin: 07/24/17 07:24 Dose: 1,300 mg Physical Exam Vital Signs Period Temp Pulse Resp BP Sys/[place]illo Pulse Ox Last 24 Hr 99.9 F-101.6 F 76-88 28-32 96-151/45-70 100-100 Constitutional: Yes: Well Nourished, No Distress, Calm Eyes: Yes: PERRL, Other (R Upward Lat Gaze.) HENT: Yes: WNL, Atraumatic, Normocephalic Neck: Yes: WNL, Supple, Trachea Midline Cardiovascular: Yes: WNL, Regular Rate and Rhythm Respiratory: Yes: Diminished, Mechanically Ventilated, Wheezes Gastrointestinal: Yes: Abdomen, Obese, Distention, Hyperactive Bowel Sounds ...Rectal Exam: Yes: Deferred Renal/: Yes: Rocha Present Breast(s): Yes: WNL Extremities: Yes: Other (Clubbed Fingers.) Edema: Yes Edema: LLE: 1+, RLE: 1+ Peripheral Pulses WNL: Yes Integumentary: Yes: WNL Neurological: No facial droop, not responding to pain, not gagging on suction, R pupil 2mm --> 1mm, no spontaneous movement, R foot myoclonic twitching noted CBCD WBC 13.8 K/mm3 (4.0-10.0) H 07/24/17 05:55 RBC 2.57 M/mm3 (4.00-5.60) L 07/24/17 05:55 Hgb 7.1 GM/dL (11.7-16.9) L D 07/24/17 05:55 Hct 22.2 % (35.4-49) L 07/24/17 05:55 MCV 86.2 fl (80-96) 07/24/17 05:55 MCHC 32.0 g/dl (32.0-35.9) 07/24/17 05:55 RDW 18.7 % (11.9-15.9) H 07/24/17 05:55 Plt Count 111 K/MM3 (134-434) L 07/24/17 05:55 MPV 9.6 fl (7.5-11.1) 07/24/17 05:55 CMP Sodium 141 mmol/L (136-145) 07/24/17 08:48 Potassium 3.4 mmol/L (3.5-5.1) L 07/24/17 08:48 Chloride 115 mmol/L (98-107) H 07/24/17 08:48 Carbon Dioxide 9 mmol/L (21-32) L 07/24/17 08:48 Anion Gap 17 (8-16) H 07/24/17 08:48 BUN 82 mg/dL (7-18) H 07/24/17 08:48 Creatinine 4.6 mg/dL (0.7-1.3) H 07/24/17 08:48 Creat Clearance w eGFR 13.24 (>60) 07/24/17 05:55 Calcium 7.2 mg/dL (8.5-10.1) L 07/24/17 08:48 Total Bilirubin 0.6 mg/dL (0.2-1.0) D 07/24/17 05:55 AST 107 U/L (15-37) H D 07/24/17 05:55 ALT 100 U/L (12-78) H D 07/24/17 05:55 Alkaline Phosphatase 153 U/L (45-117) H D 07/24/17 05:55 Total Protein 4.8 g/dl (6.4-8.2) L 07/24/17 05:55 Albumin 1.4 g/dl (3.4-5.0) L 07/24/17 05:55 CT head X2 as above Plan: 56 y/o man w/ HTN, HL, DM, CKD, HIV on HAART, EF 49.5%, BIBA for SOB. Reportedly had been experiencing worsening SOB & SAMUELS w/ assoc wheezing for several days prior to admission. While in route developed further respiratory distress and in ER had agonal breathing and unresponsive. No pulse noted on stretcher transferand chest compressions were initiated. The Pt was resuscitated per ACLS protocol for approximately 5 minutes according to note, receiving epi x 2, bicarb x 2. Pt was intubated and placed on ventilator and given nebulizers and steroids. Pt admitted to the ICU s/p Cardiac Arrest and respiratory failure. The patient has been on propofol but having myoclonic twitches especially in right foot which have improved with Klonipin Given his history, this was likely myoclonic jerks 2/2 to anoxic brain injury and would not require AEDS Getting ICU care since admission klonipin 1mg twice daily added and subsided, no longer on Klonipin Continue Mechanical ventilation, wean as able Still on Propofol 2/2 tachypnea when not sedated Spiking fevers, possible central fevers, ID following Decadron discontinued Initial CT head with cerebral edema noted and loss of balderas white differentiation Repeat CT with cortical sulci more visible and less edema, though evidence of anoxic brain injury in basal ganglia EEG confirmed patient with brain activity, mix of delta and theta, consistent with encephalopathy Spoke with daughter extensively recently regarding lack of clinical changes Family to decide on goals of care, palliative has been involved Possibly would require trach, vent, peg vs. compassionate extubation No significant clinical improvement thus far Discussed with ICU team Critical Care Time 35 mins
[2017-07-24] MEDS ORDERED: PT OWN MED DRAWER 7, Y5N ONE (10:35)
[2017-07-24] MEDS: CARVEDILOL 25 MG TABLET (FP) PO SCH ×2 (10:41→21:12)
--- NOTE | 2017-07-24 11:39 | PN ---
Progress Note (short form) - Note Progress Note: CC: SOB/cardiac arrest. s: remains intubated/sedated, no overnight events. bp improved Current Medications Generic Name Dose Route Start Last Admin Trade Name Luis Fernando PRN Reason Stop Dose Admin Acetaminophen 650 mg 07/14/17 16:02 07/21/17 10:46 Tylenol Oral Solution - PO 650 mg Q6H PRN Administration FEVER OR PAIN Artificial Tears 1 drop 07/12/17 15:20 Artificial Tears OU BID PRN DRY EYES Carvedilol 25 mg 07/18/17 22:00 07/24/17 10:41 Coreg - PO 25 mg BID PAULINE Administration Hydralazine HCl 25 mg 07/22/17 14:00 07/24/17 07:24 Apresoline - PO 25 mg TID PAULINE Administration Propofol 1,000,000 mcg in 100 mls @ 2.807 mls/hr 07/10/17 14:00 07/24/17 10: 41 Diprivan - IVPB 50 mcg/kg/min TITR PAULINE 28.066 mls/hr Protocol Administration 5 MCG/KG/MIN Insulin Human Regular 100 100 mls @ 9.91 mls/hr 07/23/17 12:00 07/23/17 15:58 units/ Sodium Chloride IVPB 0.1 units/kg/hr TITR PAULINE 9.91 mls/hr Protocol Administration 0.1 UNITS/KG/HR Sodium Bicarbonate 50 meq/ 1,050 mls @ 75 mls/hr 07/23/17 19:15 07/23/17 21: 26 Sodium Chloride IVPB 75 mls/hr Q14H PAULINE Administration Dextrose 1,000 mls @ 100 mls/hr 07/24/17 08:30 07/24/17 09:00 D5w - IV 100 mls/hr ASDIR PAULINE Administration Labetalol HCl 10 mg 07/09/17 11:12 07/22/17 09:05 Normodyne Injection - IVPUSH 10 mg Q4H PRN Administration HYPERTENSION Sodium Bicarbonate 1,300 mg 07/21/17 22:00 07/24/17 07:24 Sodium Bicarbonate - PO 1,300 mg TID PAULINE Administration Vital Signs Temp 99.9 F H 07/24/17 02:00 Pulse 76 07/24/17 06:00 Resp 26 H 07/24/17 11:31 BP 118/45 07/24/17 06:00 Pulse Ox 99 07/24/17 09:30 Intake & Output 07/23/17 07/23/17 07/24/17 11:59 23:59 11:59 Intake Total 810 2817 1917 Output Total 120 820 220 Balance 690 1997 169 Weight 218 lb 8 oz 229 lb 1 oz Intake: IV 210 638 338 DIPRIVAN - 1,000,000 mcg 210 540 240 In 100 ml @ 5 MCG/KG/MIN 2.807 mls/hr IVPB TITR PAULINE Rx#:[id number] NOVOLIN R VIAL *For 98 98 IVPUSH or IV DRIP Only* 100 UNITS In Normal Saline - 99 ml @ 0.1 UNITS/KG/HR 9.91 mls/hr IVPB TITR PAULINE Rx#: [id number] IVPB 229 229 Tube Feeding 350 950 600 Packed Cells 350 350 Tube Irrigant 250 650 400 Output: Gastric Drainage 100 100 Urine 120 720 120 Rocha 120 720 120 Other: Voiding Method Indwelling Catheter Indwelling Catheter Bowel Movement Yes No No # Bowel Movements 250 Weight Measurement Method Built in [facility] Built in [facility] Constitutional: Yes: Well Nourished, No Distress, intubated, sedated. Eyes: No: Sclera Icterus Respiratory: Yes: mechanical breath sounds (anteriorly (pt intubated)). No: Accessory Muscle Use, Rales, Wheezes Gastrointestinal: Yes: Normal Bowel Sounds. No: Distention, Hepatomegaly, Palpable Mass, Tenderness Cardiovascular: Yes: tachcyardic, Regular Rate and Rhythm JVD: No Heart Sounds: Yes: S1, S2. No: Gallop Murmur: No: Systolic Murmur, Diastolic Murmurs) Extremities: No: Cool (feet), Cyanosis Edema: No Integumentary: No: Jaundice Neurological: No: sedated Psychiatric: No: Agitated - Other Data Labs, Other Data: Laboratory Last Values WBC 13.8 K/mm3 (4.0-10.0) H 07/24/17 05:55 RBC 2.57 M/mm3 (4.00-5.60) L 07/24/17 05:55 Hgb 7.1 GM/dL (11.7-16.9) L D 07/24/17 05:55 Hct 22.2 % (35.4-49) L 07/24/17 05:55 MCV 86.2 fl (80-96) 07/24/17 05:55 MCH 27.5 pg (25.7-33.7) 07/24/17 05:55 MCHC 32.0 g/dl (32.0-35.9) 07/24/17 05:55 RDW 18.7 % (11.9-15.9) H 07/24/17 05:55 Plt Count 111 K/MM3 (134-434) L 07/24/17 05:55 MPV 9.6 fl (7.5-11.1) 07/24/17 05:55 Total Counted 100 07/14/17 05:00 Neutrophils % 79.7 % (42.8-82.8) 07/24/17 05:55 Neutrophils % (Manual) 88.7 % (42.8-82.8) H 07/17/17 05:55 Band Neutrophils % 0.0 % 07/17/17 05:55 Lymphocytes % 14.8 % (8-40) D 07/24/17 05:55 Lymphocytes % (Manual) 4.1 % (8-40) L D 07/17/17 05:55 Monocytes % 3.8 % (3.8-10.2) 07/24/17 05:55 Monocytes % (Manual) 2 % (3.8-10.2) L 07/17/17 05:55 Eosinophils % 1.4 % (0-4.5) 07/24/17 05:55 Eosinophils % (Manual) 1.0 % (0-4.5) D 07/14/17 05:00 Basophils % 0.3 % (0-2.0) 07/24/17 05:55 Basophils % (Manual) 0.0 % (0-2.0) 07/17/17 05:55 Myelocytes % (Man) 0 % (0-2) D 07/17/17 05:55 Metamyelocytes 1 % (0-2) D 07/17/17 05:55 Manual Slide Review No Result Required. 07/06/17 05:00 Hypochromia 0 07/17/17 05:55 Toxic Granulation 0 07/17/17 05:55 Dohle Bodies 0 07/17/17 05:55 Platelet Estimate Normal 07/17/17 05:55 Platelet Comment No clumping noted 07/07/17 05:00 Polychromasia 0 07/17/17 05:55 Poikilocytosis 0 07/17/17 05:55 Basophilic Stippling 0 07/17/17 05:55 Anisocytosis 0 07/17/17 05:55 Microcytosis 0 07/17/17 05:55 Macrocytosis 0 07/17/17 05:55 Spherocytes 0 07/17/17 05:55 Sickle Cells 0 07/17/17 05:55 Target Cells 0 07/17/17 05:55 Tear Drop Cells 0 07/17/17 05:55 Ovalocytes 0 07/17/17 05:55 Stomatocytes 0 07/17/17 05:55 Helmet Cells 0 07/17/17 05:55 Khan-Bulpitt Bodies 0 07/17/17 05:55 Ripon Rings 0 07/17/17 05:55 Storm Cells 0 07/17/17 05:55 Acanthocytes (Spur) 0 07/17/17 05:55 Fragmented RBCs 0 07/17/17 05:55 Schistocytes 0 07/17/17 05:55 PT with INR 13.30 SEC (9.98-11.88) H 07/06/17 05:00 INR 1.18 (0.82-1.09) H 07/06/17 05:00 PTT (Actin FS) 20.4 SECONDS (26.9-34.4) L 07/05/17 00:45 Anticoagulation Therapy Y 07/15/17 00:15 Puncture Site Right radial 07/15/17 00:15 Patient Temperature 101.3 07/08/17 09:49 ABG pH 7.29 (7.35-7.45) L 07/15/17 00:15 ABG pCO2 at Pt Temp 22.5 mmHg (35-45) L 07/15/17 00:15 ABG pO2 at Pt Temp 119.0 mmHg (80-100) H D 07/15/17 00:15 ABG HCO3 10.6 meq/L (22-26) L* 07/15/17 00:15 ABG O2 Sat (Measured) 97.8 % (90-98.9) 07/15/17 00:15 ABG O2 Content 16.6 % vol (15-22) 07/15/17 00:15 ABG Base Excess -14.2 meq/l (-2-2) L* 07/15/17 00:15 Sorin Test Y 07/15/17 00:15 VBG pH 6.98 (7.32-7.42) L* 07/05/17 01:00 POC VBG pCO2 69.6 mmHg (38-52) H* 07/05/17 01:00 POC VBG pO2 49.8 mmHg (28-48) H 07/05/17 01:00 Mixed VBG HCO3 15.6 meq/L (19-25) L 07/05/17 01:00 Carboxyhemoglobin 0.2 gm% (0.5-2.0) L 07/05/17 06:00 Methemoglobin 1.0 % (0.4-1.5) 07/05/17 06:00 O2 Delivery Device Y 07/15/17 00:15 Oxygen Flow Rate 30% 07/15/17 00:15 Vent Mode Y 07/15/17 00:15 Vent Rate 16 07/15/17 00:15 Mechanical Rate Y 07/15/17 00:15 PEEP 5.0 cmH2O 07/15/17 00:15 Pressure Support Vent 500 07/15/17 00:15 Sodium 141 mmol/L (136-145) 07/24/17 08:48 Potassium 3.4 mmol/L (3.5-5.1) L 07/24/17 08:48 Chloride 115 mmol/L (98-107) H 07/24/17 08:48 Carbon Dioxide 9 mmol/L (21-32) L 07/24/17 08:48 Anion Gap 17 (8-16) H 07/24/17 08:48 BUN 82 mg/dL (7-18) H 07/24/17 08:48 Creatinine 4.6 mg/dL (0.7-1.3) H 07/24/17 08:48 Creat Clearance w eGFR 13.24 (>60) 07/24/17 05:55 POC Glucometer 385.08852 UNITS (80-120) 07/22/17 17:00 Random Glucose 125 mg/dL (74-106) H D 07/24/17 08:48 Fasting Glucose 535 mg/dL (70-105) H* 07/14/17 14:45 Lactic Acid 0.1 mmol/L (0.4-2.0) L 07/11/17 08:00 Calcium 7.2 mg/dL (8.5-10.1) L 07/24/17 08:48 Phosphorus 6.1 mg/dL (2.5-4.9) H D 07/24/17 05:55 Magnesium 2.3 mg/dL (1.8-2.4) 07/24/17 05:55 Total Bilirubin 0.6 mg/dL (0.2-1.0) D 07/24/17 05:55 Direct Bilirubin 0.4 mg/dL (0.0-0.2) H D 07/12/17 05:35 AST 107 U/L (15-37) H D 07/24/17 05:55 ALT 100 U/L (12-78) H D 07/24/17 05:55 Alkaline Phosphatase 153 U/L (45-117) H D 07/24/17 05:55 Creatine Kinase 237 IU/L (39-308) 07/07/17 13:00 Creatine Kinase Index 0.5 % (0.0-5.0) 07/07/17 13:00 CK-MB (CK-2) 1.282 ng/mL (0.5-3.6) 07/07/17 13:00 Troponin I 1.09 ng/ml (0.00-0.05) H* 07/07/17 13:00 B-Natriuretic Peptide 55443.37 pg/ml (5-125) H 07/05/17 00:45 Total Protein 4.8 g/dl (6.4-8.2) L 07/24/17 05:55 Albumin 1.4 g/dl (3.4-5.0) L 07/24/17 05:55 Urine Color Ltyellow 07/14/17 19:00 Urine Appearance Clear 07/14/17 19:00 Urine pH 6.0 (5.0-8.0) 07/14/17 19:00 Ur Specific [place] 1.013 (1.001-1.035) 07/14/17 19:00 Urine Protein 2+ (NEGATIVE) H 07/14/17 19:00 Urine Glucose (UA) 3+ (NEGATIVE) H 07/14/17 19:00 Urine Ketones Negative (NEGATIVE) 07/14/17 19:00 Urine Blood 1+ (NEGATIVE) H 07/14/17 19:00 Urine Nitrite Negative (NEGATIVE) 07/14/17 19:00 Urine Bilirubin Negative (NEGATIVE) 07/14/17 19:00 Urine Urobilinogen Negative mg/dL (0.2-1.0) 07/14/17 19:00 Ur Leukocyte Esterase Negative (NEGATIVE) 07/14/17 19:00 Urine WBC (Auto) 3 /hpf (3-5) 07/14/17 19:00 Urine RBC (Auto) 2 /hpf (0-3) 07/14/17 19:00 Ur Epithelial Cells Rare /HPF (FEW) 07/12/17 12:04 Hyaline Casts 1 /lpf 07/05/17 02:10 Urine Mucus Rare 07/14/17 19:00 Ur Random Sodium 57 MMOL/L 07/06/17 14:50 Ur Random Potassium 32.6 MMOL/L 07/06/17 14:50 Ur Random Chloride 43 MMOL/L 07/06/17 14:50 Ur Random Urea Nitrogn 380 mg/dL 07/06/17 14:50 Gastric Occult Blood Positive 07/10/17 16:45 Tobramycin Trough 3.1 ug/ml (0.0-2.0) H* 07/06/17 05:00 Random Vancomycin < 0.800 ug/ml 07/05/17 05:00 Beta-(1,3)-D-Glucan 41 pg/mL (<80) 07/05/17 08:05 Blood Type B POSITIVE 07/10/17 19:40 Antibody Screen Negative 07/10/17 19:20 Crossmatch See Detail 07/10/17 19:20 cxr reviewed tele: sr MPI 05/26: no ischemia, EF 33% (global Echo 06/2017: nl lv size. LV fn mod-sev reduced (global). nl rv size/fn. 1+ mac/mr/tr. rvsp 30-40. + pleural effusion. Echo 05/26 (): mod LVE, mild global LV hypo; nl RV; mild LAE; mild MR Echo 12/24: nl LV and RV, nl valves est cct 35 mins a/p: 56 yo smoker with h/o mild lv dysfunction, htn, hl, ckd, hiv, dm p/w progressive sob and subsequent PEA arrest with EMS (s/p resuscitation). acute hypoxic resp failure, acute on chronic syst CHF, NSTEMI, cardiac arrest ( PEA): -initially with marked chf on cxr in setting of several days of worsening sob -suspect PEA due to severe chf decompensation with acute hypoxia -suspected anoxic brain injury now, neuro following -cxr w/o chf, no clinical chf, did not respond to brief trial of lasix gtt -NSTEMI trop trend here with peak 1.3 (fipl-sri-jily pattern) -ECG initially here with borderline ST changes for ischemia (likely secondary)-- ? underlying CAD with balanced ischemia on nuclear. -repeat echo here with worsened systolic function -ischemia w/u on hold due to poor neurological function/poor prognosis -cont beta blockade. added hydralazine 07/21. -no NORRIS/ARB given FLORECITA -remains without suspected volume/chf--no diuresis for now -may need trach vs compassionate wean from vent-->awaiting decision from family FLORECITA on CKD, hypernatremia: -baseline creat here 2.8 in 05/26. initially 2.4 on presentation to ER, up to 6s here. -suspect hypoperfusion/atn as cause -holding lasix -renal following, renal fxn improved to 2s but now rising again today HTN: -07/16 bp elevated at times, increase coreg to 12.5 bid - 07/17: bp labile today on higher dose of coreg. will con't to monitor. - 07/18: bp stable today, but running high. will uptitrate coreg. - 07/21: still with suboptimal bp control. Will add hydralazine. - 07/22: still with suboptimal bp control. Will increase hydralazine. - 07/23-15: bp better, cont current meds HIV/Hep C: -per ID team anemia, gib: -likely had ugib -hgb improved s/p prbcs, now trending down again--? recurrent bleeding. -monitor labs, consider transfusion if hgb <8, if in line with family's goals of care decisions--per crit care ongoing discussions
--- NOTE | 2017-07-24 11:47 | PN ---
Teaching Attending Note Name of Resident: Mukesh Niño ATTENDING PHYSICIAN STATEMENT I saw and evaluated the patient. I reviewed the resident's note and discussed the case with the resident. I agree with the resident's findings and plan as documented. SUBJECTIVE: Patient seen and examined in the ICU. Remains intubated and poorly responsive. No significant change in overall condition. Intake & Output 07/21/17 07/22/17 07/23/17 07/24/17 23:59 23:59 23:59 23:59 Intake Total 5906.7 4241.2 3627 1917 Output Total 2300 300 940 220 Balance 3606.7 3941.2 2687 1697 Weight 219 lb 4 oz 222 lb 8 oz 218 lb 8 oz 229 lb 1 oz Last Vital Signs Temp Pulse Resp BP Pulse Ox 99.9 F H 76 26 H 118/45 99 07/24/17 02:00 07/24/17 06:00 07/24/17 11:31 07/24/17 06:00 07/24/17 09:30 Active Medications Acetaminophen (Tylenol Oral Solution -) 650 mg PO Q6H PRN PRN Reason: FEVER OR PAIN Last Admin: 07/21/17 10:46 Dose: 650 mg Artificial Tears (Artificial Tears) 1 drop OU BID PRN PRN Reason: DRY EYES Carvedilol (Coreg -) 25 mg PO BID PAULINE Last Admin: 07/24/17 10:41 Dose: 25 mg Hydralazine HCl (Apresoline -) 25 mg PO TID PAULINE Last Admin: 07/24/17 07:24 Dose: 25 mg Propofol (Diprivan -) 1,000,000 mcg in 100 mls @ 2.807 mls/hr IVPB TITR PAULINE; 5 MCG/KG/MIN PRN Reason: Protocol Last Admin: 07/24/17 10:41 Dose: 50 mcg/kg/min, 28.066 mls/hr Insulin Human Regular 100 (units/ Sodium Chloride) 100 mls @ 9.91 mls/hr IVPB TITR PAULINE; 0.1 UNITS/KG/HR PRN Reason: Protocol Last Admin: 07/23/17 15:58 Dose: 0.1 units/kg/hr, 9.91 mls/hr Sodium Bicarbonate 50 meq/ (Sodium Chloride) 1,050 mls @ 75 mls/hr IVPB Q14H PAULINE Last Admin: 07/23/17 21:26 Dose: 75 mls/hr Dextrose (D5w -) 1,000 mls @ 100 mls/hr IV ASDIR [facility] Last Admin: 07/24/17 09:00 Dose: 100 mls/hr Labetalol HCl (Normodyne Injection -) 10 mg IVPUSH Q4H PRN PRN Reason: HYPERTENSION Last Admin: 07/22/17 09:05 Dose: 10 mg Sodium Bicarbonate (Sodium Bicarbonate -) 1,300 mg PO TID PAULINE Last Admin: 07/24/17 07:24 Dose: 1,300 mg Gen: Intubated, poorly responsive Heart: RRR Lung: scattered rhonchi Abd: soft, nontender Ext: (+) edema Laboratory Results - last 24 hr 07/20/17 07/20/17 07/21/17 17:42 22:10 05:12 WBC RBC Hgb Hct MCV MCH MCHC RDW Plt Count MPV Neutrophils % Lymphocytes % Monocytes % Eosinophils % Basophils % Sodium Potassium Chloride Carbon Dioxide Anion Gap BUN Creatinine Creat Clearance w eGFR POC Glucometer 289.54851 299.92335 286.48853 Random Glucose Calcium Phosphorus Magnesium Total Bilirubin AST ALT Alkaline Phosphatase Total Protein Albumin 07/21/17 07/21/17 07/21/17 10:21 16:27 22:16 WBC RBC Hgb Hct MCV MCH MCHC RDW Plt Count MPV Neutrophils % Lymphocytes % Monocytes % Eosinophils % Basophils % Sodium Potassium Chloride Carbon Dioxide Anion Gap BUN Creatinine Creat Clearance w eGFR POC Glucometer 278.71909 256.49925 273.08200 Random Glucose Calcium Phosphorus Magnesium Total Bilirubin AST ALT Alkaline Phosphatase Total Protein Albumin 07/22/17 07/22/17 07/24/17 05:48 11:22 05:55 WBC 13.8 H RBC 2.57 L Hgb 7.1 L D Hct 22.2 L MCV 86.2 MCH 27.5 MCHC 32.0 RDW 18.7 H Plt Count 111 L MPV 9.6 Neutrophils % 79.7 Lymphocytes % 14.8 D Monocytes % 3.8 Eosinophils % 1.4 Basophils % 0.3 Sodium Potassium Chloride Carbon Dioxide Anion Gap BUN Creatinine Creat Clearance w eGFR POC Glucometer 327.40080 383.89840 Random Glucose Calcium Phosphorus Magnesium Total Bilirubin AST ALT Alkaline Phosphatase Total Protein Albumin 07/24/17 07/24/17 05:55 08:48 WBC RBC Hgb Hct MCV MCH MCHC RDW Plt Count MPV Neutrophils % Lymphocytes % Monocytes % Eosinophils % Basophils % Sodium 141 141 Potassium 3.4 L 3.4 L Chloride 114 H 115 H Carbon Dioxide 9 L 9 L Anion Gap 18 H 17 H BUN 79 H 82 H Creatinine 4.6 H D 4.6 H Creat Clearance w eGFR 13.24 POC Glucometer Random Glucose 177 H D 125 H D Calcium 7.1 L 7.2 L Phosphorus 6.1 H D Magnesium 2.3 Total Bilirubin 0.6 D AST 107 H D ALT 100 H D Alkaline Phosphatase 153 H D Total Protein 4.8 L Albumin 1.4 L IMP: S/P Cardiopulmonary Arrest with subsequent Anoxic Brain Injury Acute on Chronic Systolic Heart Failure +Troponins Acute on Chronic Renal Failure Lactic Acidosis resolved HTN HIV Hep C Smoker - completed empiric antibiotics - monitor urine output, creatinine - Daily sedation vacations to assess mental status - Taper FiO2 to keep SpO2 >90% - Wean trials as tolerated - Enteral feeds - DVT/GI prophylaxis - Glycemic control 140 to 180 mg/dL - poor overall prognosis for meaningful recovery, previously discussed with daughter, she had stated that pt would not want to be kept alive without quality of life, awaiting decision from family about further GOC Dr Glez Critical care time spent in reviewing chart, evaluating patient and formulating plan 40 min
[2017-07-24] MEDS: SODIUM BICARBONATE 8.4% - 50 MEQ in SODIUM CHLORIDE 0.45% 1,000 ML IVPB SCH (12:00)
--- NOTE | 2017-07-24 14:25 | PN ---
Physical Exam: SUBJECTIVE: Patient seen and examined at bedside. Pt is DNR, intubated, sedated. Topic of compassionate extubation was broached with pt's daughter. Neurologist spoke with family. Awaiting family decision on goals of care. Afebrile. hemodynamically stable. OBJECTIVE: Vital Signs Period Temp Pulse Resp BP Sys/Del Castillo Pulse Ox Last 24 Hr 99.9 F-101.6 F 76-88 26-32 96-146/45-60 99-100 No change. GENERAL: Intubated and sedated. HEAD: Normal with no signs of trauma. EYES: sclera anicteric, conjunctiva clear. No ptosis. fixed downward left gaze. Pt does not track. ENT: oropharynx clear without exudates, moist mucous membranes. NECK: Trachea midline, full range of motion, supple. LUNGS: Breath sounds equal, clear to auscultation bilaterally, no wheezes, no crackles, no accessory muscle use. HEART: Regular rate and rhythm, S1, S2 without murmur, rub or gallop. ABDOMEN: Soft, nondistended, normoactive bowel sounds, no guarding, no rebound, no hepatosplenomegaly, no masses. EXTREMITIES: 2+ pulses, warm, well-perfused, no edema. NEUROLOGICAL: Intubated and sedated PSYCH: Intubated and sedated SKIN: Warm, dry, normal turgor, no rashes or lesions noted Laboratory Results - last 24 hr 07/24/17 07/24/17 07/24/17 05:55 05:55 08:48 WBC 13.8 H RBC 2.57 L Hgb 7.1 L D Hct 22.2 L MCV 86.2 MCH 27.5 MCHC 32.0 RDW 18.7 H Plt Count 111 L MPV 9.6 Neutrophils % 79.7 Lymphocytes % 14.8 D Monocytes % 3.8 Eosinophils % 1.4 Basophils % 0.3 Sodium 141 141 Potassium 3.4 L 3.4 L Chloride 114 H 115 H Carbon Dioxide 9 L 9 L Anion Gap 18 H 17 H BUN 79 H 82 H Creatinine 4.6 H D 4.6 H Creat Clearance w eGFR 13.24 Random Glucose 177 H D 125 H D Calcium 7.1 L 7.2 L Phosphorus 6.1 H D Magnesium 2.3 Total Bilirubin 0.6 D AST 107 H D ALT 100 H D Alkaline Phosphatase 153 H D Total Protein 4.8 L Albumin 1.4 L Active Medications Generic Name Dose Route Start Last Admin Trade Name Freq PRN Reason Stop Dose Admin Acetaminophen 650 mg 07/14/17 16:02 07/21/17 10:46 Tylenol Oral Solution - PO 650 mg Q6H PRN Administration FEVER OR PAIN Artificial Tears 1 drop 07/12/17 15:20 Artificial Tears OU BID PRN DRY EYES Carvedilol 25 mg 07/18/17 22:00 07/24/17 10:41 Coreg - PO 25 mg BID PUALINE Administration Hydralazine HCl 25 mg 07/22/17 14:00 07/24/17 07:24 Apresoline - PO 25 mg TID PAULINE Administration Propofol 1,000,000 mcg in 100 mls @ 2.807 mls/hr 07/10/17 14:00 07/24/17 10: 41 Diprivan - IVPB 50 mcg/kg/min TITR PAULINE 28.066 mls/hr Protocol Administration 5 MCG/KG/MIN Insulin Human Regular 100 100 mls @ 9.91 mls/hr 07/23/17 12:00 07/23/17 15:58 units/ Sodium Chloride IVPB 0.1 units/kg/hr TITR PAULINE 9.91 mls/hr Protocol Administration 0.1 UNITS/KG/HR Sodium Bicarbonate 50 meq/ 1,050 mls @ 75 mls/hr 07/23/17 19:15 07/23/17 21: 26 Sodium Chloride IVPB 75 mls/hr Q14H PAULINE Administration Dextrose 1,000 mls @ 100 mls/hr 07/24/17 08:30 07/24/17 09:00 D5w - IV 100 mls/hr ASDIR PAULINE Administration Labetalol HCl 10 mg 07/09/17 11:12 07/22/17 09:05 Normodyne Injection - IVPUSH 10 mg Q4H PRN Administration HYPERTENSION Sodium Bicarbonate 1,300 mg 07/21/17 22:00 07/24/17 07:24 Sodium Bicarbonate - PO 1,300 mg TID PAULINE Administration ASSESSMENT/PLAN: Pt is a 56 M w/ PMH HTN, HL, DM, CKD, and HIV on HAART who presented to ED with cardiopulmonary arrest. Pt is now intubated. Prior to arriving at the ED, pt had been complaining of wheezing and SOB. On arriving in ED, pt was in arrest and was coded for 5 min. Cardio #RAVEN for at least 5 min -intubatedardiopulmonary arrest -pt was coded in ED for 5 min -Echo showed moderate-severe LV dysfunction -Tn peak at 1.33. Per Cardio, Tn is combination of demand & sepsis -holding Lasix at this time Neuro #Anoxic brain injury -Neuro on board -Pt was down and coded for several minutes -now exhibiting myoclonic jerks -holding klonopin -per Radiologist Dr. Estrada, Head CT revealed loss of balderas/white junction, and sulcal effacement, but no sign of herniation. -Decadron d/c'ed today -EEG abnormal -holding sedation ID -HIV positive -pt sees Dr. Vital as outpt -has been resistant to several medications -HIV meds on hold for now -Leukocytosis -ID signed off Nephro -FLORECITA on CKD -Nephro on board -FLORECITA likely worsened by arrest -No need for HD at this time -Hold lasix for now Endocrine -DM. In DKA -Insulin ggt -keep BGM 140-180 FEN -on NS -Hypernatremia. Hypokalemia. Hypocalcemia. Repleting -Intubated sedated PPx -Hep SubQ Dispo -admitted to ICU -pending goals of care discussion. Pt will either need extubation or trach/PEG Mukesh Niño MD PGY-1, ICU Visit type - Emergency Visit Emergency Visit: No - New Patient This patient is new to me today: No - Critical Care Critical Care patient: Yes Total Critical Care Time (in minutes): 45 Critical Care Statement: The care of this patient involved high complexity decision making to prevent further life threatening deterioration of the patient 's condition and/or to evaluate & treat vital organ system(s) failure or risk of failure. - Discharge Referral Referred to [facility] Med P.C.: No
--- NOTE | 2017-07-24 15:49 | PN ---
Progress Note, Physician History of Present Illness: Pt seen and examined at bedside. He remains in the ICU. - Current Medication List Current Medications: Active Medications Acetaminophen (Tylenol Oral Solution -) 650 mg PO Q6H PRN PRN Reason: FEVER OR PAIN Last Admin: 07/21/17 10:46 Dose: 650 mg Artificial Tears (Artificial Tears) 1 drop OU BID PRN PRN Reason: DRY EYES Carvedilol (Coreg -) 25 mg PO BID PAULINE Last Admin: 07/24/17 10:41 Dose: 25 mg Hydralazine HCl (Apresoline -) 25 mg PO TID PAULINE Last Admin: 07/24/17 07:24 Dose: 25 mg Propofol (Diprivan -) 1,000,000 mcg in 100 mls @ 2.807 mls/hr IVPB TITR PAULINE; 5 MCG/KG/MIN PRN Reason: Protocol Last Admin: 07/24/17 10:41 Dose: 50 mcg/kg/min, 28.066 mls/hr Insulin Human Regular 100 (units/ Sodium Chloride) 100 mls @ 9.91 mls/hr IVPB TITR PAULINE; 0.1 UNITS/KG/HR PRN Reason: Protocol Last Admin: 07/23/17 15:58 Dose: 0.1 units/kg/hr, 9.91 mls/hr Sodium Bicarbonate 50 meq/ (Sodium Chloride) 1,050 mls @ 75 mls/hr IVPB Q14H PAULINE Last Admin: 07/23/17 21:26 Dose: 75 mls/hr Dextrose (D5w -) 1,000 mls @ 100 mls/hr IV ASDIR PAULINE Last Admin: 07/24/17 09:00 Dose: 100 mls/hr Labetalol HCl (Normodyne Injection -) 10 mg IVPUSH Q4H PRN PRN Reason: HYPERTENSION Last Admin: 07/22/17 09:05 Dose: 10 mg Sodium Bicarbonate (Sodium Bicarbonate -) 1,300 mg PO TID PAULINE Last Admin: 07/24/17 07:24 Dose: 1,300 mg - Objective Vital Signs: Vital Signs Temperature 99.9 F H 07/24/17 02:00 Pulse Rate 76 07/24/17 06:00 Respiratory Rate 26 H 07/24/17 14:01 Blood Pressure 118/45 07/24/17 06:00 O2 Sat by Pulse Oximetry (%) 99 07/24/17 09:30 Constitutional: Yes: Calm HENT: Yes: Atraumatic Cardiovascular: Yes: S1, S2 Respiratory: Yes: Mechanically Ventilated Gastrointestinal: Yes: Soft Genitourinary: Yes: Rocha Present Musculoskeletal: Yes: Muscle Weakness Edema: Yes Edema: LLE: 1+, RLE: 1+ Neurological: Yes: Lethargy Labs: CBC, BMP 07/24/17 05:55 07/24/17 08:48 INR, PTT INR 1.18 (0.82-1.09) H 07/06/17 05:00 Problem List - Problems (1) FLORECITA (acute kidney injury) Code(s): N17.9 - ACUTE KIDNEY FAILURE, UNSPECIFIED (2) CHF (congestive heart failure) Code(s): I50.9 - HEART FAILURE, UNSPECIFIED Qualifiers: Congestive heart failure type: unspecified congestive heart failure type Congestive heart failure chronicity: unspecified congestive heart failure chronicity Qualified Code(s): I50.9 - Heart failure, unspecified (3) Cardiopulmonary arrest with successful resuscitation Code(s): I46.9 - CARDIAC ARREST, CAUSE UNSPECIFIED (4) Chronic kidney disease Code(s): N18.9 - CHRONIC KIDNEY DISEASE, UNSPECIFIED (5) Hypertension Code(s): I10 - ESSENTIAL (PRIMARY) HYPERTENSION (6) Chronic kidney disease Code(s): N18.9 - CHRONIC KIDNEY DISEASE, UNSPECIFIED Assessment/Plan Current Medications Generic Name Dose Route Start Last Admin Trade Name Freq PRN Reason Stop Dose Admin Acetaminophen 650 mg 07/14/17 16:02 07/21/17 10:46 Tylenol Oral Solution - PO 650 mg Q6H PRN Administration FEVER OR PAIN Artificial Tears 1 drop 07/12/17 15:20 Artificial Tears OU BID PRN DRY EYES Carvedilol 25 mg 07/18/17 22:00 07/24/17 10:41 Coreg - PO 25 mg BID PAULINE Administration Hydralazine HCl 25 mg 07/22/17 14:00 07/24/17 07:24 Apresoline - PO 25 mg TID PAULINE Administration Propofol 1,000,000 mcg in 100 mls @ 2.807 mls/hr 07/10/17 14:00 07/24/17 10: 41 Diprivan - IVPB 50 mcg/kg/min TITR PAULINE 28.066 mls/hr Protocol Administration 5 MCG/KG/MIN Insulin Human Regular 100 100 mls @ 9.91 mls/hr 07/23/17 12:00 07/23/17 15:58 units/ Sodium Chloride IVPB 0.1 units/kg/hr TITR PAULINE 9.91 mls/hr Protocol Administration 0.1 UNITS/KG/HR Sodium Bicarbonate 50 meq/ 1,050 mls @ 75 mls/hr 07/23/17 19:15 07/23/17 21: 26 Sodium Chloride IVPB 75 mls/hr Q14H PAULINE Administration Dextrose 1,000 mls @ 100 mls/hr 07/24/17 08:30 07/24/17 09:00 D5w - IV 100 mls/hr ASDIR PAULINE Administration Labetalol HCl 10 mg 07/09/17 11:12 07/22/17 09:05 Normodyne Injection - IVPUSH 10 mg Q4H PRN Administration HYPERTENSION Sodium Bicarbonate 1,300 mg 07/21/17 22:00 07/24/17 07:24 Sodium Bicarbonate - PO 1,300 mg TID PAULINE Administration Impression 1. FLORECITA 2. CKD 3. cardiac arrest 4. CHF 5. HIV 6. hypomagnesemia 7. anoxic brain injury 8. anemia 9. hyperglycemia 10. HTN 11. acidosis 12. DM/DKA Plan - renal function continues to worsen - cont with fluids - cont insulin drip - blood sugar not controlled - pts daughter at bedside and case discussed with her. She is a nurse. She is waiting for her brothers and they may withdraw the ET tube today. - family are still discussing GOC - will follow - vent support - discussed with ICU team - likely ATN from hypotension during arrest - cont to monitor urine output
[2017-07-24] MEDS ORDERED: INSULIN SLIDING SCALE (NOVOLOG) 1 VIAL SQ SCH (16:30)
[2017-07-24] MEDS ORDERED: INSULIN (NOVOLOG) ASPART 100 UNITS/ML 10ML VIAL ONE (16:46)
[2017-07-24] MEDS: INSULIN SLIDING SCALE (NOVOLOG) 1 VIAL SQ SCH ×2 (21:12→21:23)
[2017-07-24] MEDS: ACETAMINOPHEN 650 MG/20.3 ML ORAL SOLUTION (CUPS) PO PRN (21:12)
--- NOTE | 2017-07-24 23:46 | PN ---
Progress Note, Physician History of Present Illness: No new change - Current Medication List Current Medications: Active Medications Acetaminophen (Tylenol Oral Solution -) 650 mg PO Q6H PRN PRN Reason: FEVER OR PAIN Last Admin: 07/24/17 21:12 Dose: 650 mg Artificial Tears (Artificial Tears) 1 drop OU BID PRN PRN Reason: DRY EYES Carvedilol (Coreg -) 25 mg PO BID [facility] Last Admin: 07/24/17 21:12 Dose: 25 mg Hydralazine HCl (Apresoline -) 25 mg PO TID [facility] Last Admin: 07/24/17 21:12 Dose: 25 mg Propofol (Diprivan -) 1,000,000 mcg in 100 mls @ 2.807 mls/hr IVPB TITR PAULINE; 5 MCG/KG/MIN PRN Reason: Protocol Last Admin: 07/24/17 19:02 Dose: 50 mcg/kg/min, 28.066 mls/hr Sodium Bicarbonate 50 meq/ (Sodium Chloride) 1,050 mls @ 75 mls/hr IVPB Q14H PAULINE Last Admin: 07/24/17 12:00 Dose: 75 mls/hr Insulin Aspart (Novolog Vial Sliding Scale -) 1 vial SQ Q4HPO PAULINE PRN Reason: Protocol Last Admin: 07/24/17 21:23 Dose: 6 units Insulin Detemir (Levemir Vial) 20 units SQ HS [facility] Labetalol HCl (Normodyne Injection -) 10 mg IVPUSH Q4H PRN PRN Reason: HYPERTENSION Last Admin: 07/22/17 09:05 Dose: 10 mg Sodium Bicarbonate (Sodium Bicarbonate -) 1,300 mg PO TID [facility] Last Admin: 07/24/17 21:12 Dose: 1,300 mg - Objective Vital Signs: Vital Signs Temperature 99.4 F 07/24/17 18:00 Pulse Rate 74 07/24/17 20:00 Respiratory Rate 31 H 07/24/17 21:30 Blood Pressure 125/62 07/24/17 20:00 O2 Sat by Pulse Oximetry (%) 100 07/24/17 20:27 HENT: Yes: Other ((+) ETT) Cardiovascular: Yes: WNL, Regular Rate and Rhythm Respiratory: Yes: WNL, Regular Gastrointestinal: Yes: WNL, Normal Bowel Sounds, Soft Edema: Yes Labs: CBC, BMP 07/24/17 05:55 07/24/17 08:48 INR, PTT INR 1.18 (0.82-1.09) H 07/06/17 05:00 Problem List - Problems (1) Respiratory failure Assessment/Plan: Poor prognosis and condition is terminal Cont nebulizers/IV sedation Awaiting family decision about terminal weaning/terminal extubation Code(s): J96.90 - RESPIRATORY FAILURE, UNSP, UNSP W HYPOXIA OR HYPERCAPNIA (2) Cardiopulmonary arrest with successful resuscitation Assessment/Plan: Pt remains intubated w/ poor prognosis Pt w/ anoxic brain injury/cerebral edema Code(s): I46.9 - CARDIAC ARREST, CAUSE UNSPECIFIED (3) Uncontrolled diabetes mellitus Assessment/Plan: Cont sliding scale w/ coverage Code(s): E11.65 - TYPE 2 DIABETES MELLITUS WITH HYPERGLYCEMIA (4) Acute on chronic diastolic CHF (congestive heart failure) Assessment/Plan: Euvolemic Code(s): I50.33 - ACUTE ON CHRONIC DIASTOLIC (CONGESTIVE) HEART FAILURE (5) Anemia Code(s): D64.9 - ANEMIA, UNSPECIFIED (6) Chronic kidney disease Assessment/Plan: Acute on chronic renal disease As per renal Code(s): N18.9 - CHRONIC KIDNEY DISEASE, UNSPECIFIED
[2017-07-25] MEDS: SODIUM BICARBONATE 8.4% - 50 MEQ in SODIUM CHLORIDE 0.45% 1,000 ML IVPB SCH (00:30)
[2017-07-25] MEDS: INSULIN SLIDING SCALE (NOVOLOG) 1 VIAL SQ SCH ×6 (01:52→21:41)
[2017-07-25 06:18] LABS: BASO % 0.2 % (0-2.0); EOS % 1.1 % (0-4.5); MCH 27.6 pg (25.7-33.7); MCHC 32.1 g/dl (32.0-35.9); MEAN CELL VOLUME 85.9 fl (80-96); MEAN PLT VOLUME 9.6 fl (7.5-11.1); NEUT % 86.4 % (42.8-82.8); PLATELET COUNT 125 K/MM3 (134-434); RDW 18.5 % (11.9-15.9); WHITE BLOOD COUNT 14.9 K/mm3 (4.0-10.0)
[2017-07-25] MEDS: hydrALAZINE HCL 25 MG TABLET (FP) PO SCH ×3 (06:37→21:32)
[2017-07-25] MEDS: SODIUM BICARBONATE 650 MG TABLET PO SCH ×3 (06:37→21:32)
[2017-07-25 06:41] LABS: ALBUMIN 1.4 g/dl (3.4-5.0); ANION GAP 21 (8-16); BILIRUBIN,TOTAL 0.6 mg/dL (0.2-1.0); CO2 8 mmol/L (21-32); CREATININE 5.3 mg/dL (0.7-1.3); GLUCOSE,RANDOM 289 mg/dL (74-106); SGOT/AST 42 U/L (15-37); SGPT/ALT 74 U/L (12-78); TOT PROT 4.9 g/dl (6.4-8.2)
[2017-07-25 06:47] LABS: ALK PHOS 146 U/L (45-117); PHOSPHOROUS 8.5 mg/dL (2.5-4.9)
--- NOTE | 2017-07-25 07:16 | PN ---
Progress Note, Physician Chief Complaint: ID No change in clinical status Off antibiotics and afebrile Blood cultures sent - Current Medication List Current Medications: Active Medications Acetaminophen (Tylenol Oral Solution -) 650 mg PO Q6H PRN PRN Reason: FEVER OR PAIN Last Admin: 07/24/17 21:12 Dose: 650 mg Artificial Tears (Artificial Tears) 1 drop OU BID PRN PRN Reason: DRY EYES Carvedilol (Coreg -) 25 mg PO BID [facility] Last Admin: 07/24/17 21:12 Dose: 25 mg Hydralazine HCl (Apresoline -) 25 mg PO TID PAULINE Last Admin: 07/25/17 06:37 Dose: 25 mg Propofol (Diprivan -) 1,000,000 mcg in 100 mls @ 2.807 mls/hr IVPB TITR PAULINE; 5 MCG/KG/MIN PRN Reason: Protocol Last Admin: 07/24/17 19:02 Dose: 50 mcg/kg/min, 28.066 mls/hr Sodium Bicarbonate 50 meq/ (Sodium Chloride) 1,050 mls @ 75 mls/hr IVPB Q14H PAULINE Last Admin: 07/25/17 00:30 Dose: 75 mls/hr Insulin Aspart (Novolog Vial Sliding Scale -) 1 vial SQ Q4HPO PAULINE PRN Reason: Protocol Last Admin: 07/25/17 06:37 Dose: 8 units Insulin Detemir (Levemir Vial) 20 units SQ HS [facility] Labetalol HCl (Normodyne Injection -) 10 mg IVPUSH Q4H PRN PRN Reason: HYPERTENSION Last Admin: 07/22/17 09:05 Dose: 10 mg Sodium Bicarbonate (Sodium Bicarbonate -) 1,300 mg PO TID [facility] Last Admin: 07/25/17 06:37 Dose: 1,300 mg - Objective Vital Signs: Vital Signs Temperature 99.0 F 07/25/17 06:00 Pulse Rate 73 07/25/17 06:00 Respiratory Rate 28 H 07/25/17 06:00 Blood Pressure 122/52 07/25/17 06:00 O2 Sat by Pulse Oximetry (%) 100 07/24/17 20:27 Constitutional: Yes: Other (Ventilator) Cardiovascular: Yes: Regular Rate and Rhythm, S1, S2 Respiratory: Yes: WNL, Regular, CTA Bilaterally Gastrointestinal: Yes: Soft. No: Tenderness Labs: CBC, BMP 07/25/17 05:55 07/25/17 05:55 INR, PTT INR 1.18 (0.82-1.09) H 07/06/17 05:00 Problem List - Problems (1) Cardiopulmonary arrest with successful resuscitation Code(s): I46.9 - CARDIAC ARREST, CAUSE UNSPECIFIED (2) Uncontrolled diabetes mellitus Code(s): E11.65 - TYPE 2 DIABETES MELLITUS WITH HYPERGLYCEMIA (3) Sepsis Code(s): A41.9 - SEPSIS, UNSPECIFIED ORGANISM (4) Chronic kidney disease Code(s): N18.9 - CHRONIC KIDNEY DISEASE, UNSPECIFIED (5) Hypertension Code(s): I10 - ESSENTIAL (PRIMARY) HYPERTENSION Assessment/Plan Laboratory Tests 07/25/17 07/25/17 05:55 05:55 WBC 14.9 H Hgb 7.5 L Plt Count 125 L BUN 91 H Creatinine 5.3 H AST 42 H D ALT 74 D Alkaline Phosphatase 146 H Assessment I have followed this 56 year old HIV positive man for several years as his primary PMD . At this point continued supportive care seems medically futile as no hope for neurological recovery secondary to severe anoxic brain injury wit multiorgan failure. Plan Compassionate weaning seems most appropriate Amanuel ROJAS
[2017-07-25 07:26] LABS: CALCIUM 6.9 mg/dL (8.5-10.1)
[2017-07-25] MEDS ORDERED: HEMOQUE TEST 1 EACH EACH ONE (08:36)
--- NOTE | 2017-07-25 09:28 | PN ---
Progress Note (short form) - Note Progress Note: Seen and examined in the ICU Remains intubated and non responsive to verbal stimulation Family GOC conversations: possible palliative extubation Sedation holiday today: increased RR and withdrawals to noxious stimulation Current Medications Acetaminophen (Tylenol Oral Solution -) 650 mg PO Q6H PRN PRN Reason: FEVER OR PAIN Last Admin: 07/24/17 21:12 Dose: 650 mg Artificial Tears (Artificial Tears) 1 drop OU BID PRN PRN Reason: DRY EYES Carvedilol (Coreg -) 25 mg PO BID [facility] Last Admin: 07/24/17 21:12 Dose: 25 mg Hydralazine HCl (Apresoline -) 25 mg PO TID PAULINE Last Admin: 07/25/17 06:37 Dose: 25 mg Propofol (Diprivan -) 1,000,000 mcg in 100 mls @ 2.807 mls/hr IVPB TITR PAULINE; 5 MCG/KG/MIN PRN Reason: Protocol Last Admin: 07/24/17 19:02 Dose: 50 mcg/kg/min, 28.066 mls/hr Sodium Bicarbonate 50 meq/ (Sodium Chloride) 1,050 mls @ 75 mls/hr IVPB Q14H PAULINE Last Admin: 07/25/17 00:30 Dose: 75 mls/hr Insulin Aspart (Novolog Vial Sliding Scale -) 1 vial SQ Q4HPO PAULINE PRN Reason: Protocol Last Admin: 07/25/17 06:37 Dose: 8 units Insulin Detemir (Levemir Vial) 20 units SQ HS [facility] Labetalol HCl (Normodyne Injection -) 10 mg IVPUSH Q4H PRN PRN Reason: HYPERTENSION Last Admin: 07/22/17 09:05 Dose: 10 mg Sodium Bicarbonate (Sodium Bicarbonate -) 1,300 mg PO TID PAULINE Last Admin: 07/25/17 06:37 Dose: 1,300 mg Vital Signs Period Temp Pulse Resp BP Sys/Del Castillo Pulse Ox Last 24 Hr 98.9 F-99.5 F 73-89 22-32 120-138/52-68 99-100 Intake & Output 07/22/17 07/23/17 07/24/17 07/25/17 23:59 23:59 23:59 23:59 Intake Total 4241.2 3627 4427.4 1733.3 Output Total 300 940 270 150 Balance 3941.2 2687 4157.4 1583.3 Weight 100.924 kg 99.11 kg 103.901 kg 107.161 kg Exam: HEENT: PERR< right downward gaze deviation Pulm: rhonchi bilateral CV: S1, S2 Abd: distended and soft Ext: WWP< +1-2 Le edema Neuro: withdrawals to noxious stimulation, not responsive to verbal CBCD WBC 14.9 K/mm3 (4.0-10.0) H 07/25/17 05:55 RBC 2.72 M/mm3 (4.00-5.60) L 07/25/17 05:55 Hgb 7.5 GM/dL (11.7-16.9) L 07/25/17 05:55 Hct 23.4 % (35.4-49) L 07/25/17 05:55 MCV 85.9 fl (80-96) 07/25/17 05:55 MCHC 32.1 g/dl (32.0-35.9) 07/25/17 05:55 RDW 18.5 % (11.9-15.9) H 07/25/17 05:55 Plt Count 125 K/MM3 (134-434) L 07/25/17 05:55 MPV 9.6 fl (7.5-11.1) 07/25/17 05:55 CMP Sodium 135 mmol/L (136-145) L 07/25/17 05:55 Potassium 3.4 mmol/L (3.5-5.1) L 07/25/17 05:55 Chloride 106 mmol/L (98-107) 07/25/17 05:55 Carbon Dioxide 8 mmol/L (21-32) L 07/25/17 05:55 Anion Gap 21 (8-16) H 07/25/17 05:55 BUN 91 mg/dL (7-18) H 07/25/17 05:55 Creatinine 5.3 mg/dL (0.7-1.3) H 07/25/17 05:55 Creat Clearance w eGFR 11.24 (>60) 07/25/17 05:55 Random Glucose 289 mg/dL (74-106) H D 07/25/17 05:55 Calcium 6.9 mg/dL (8.5-10.1) L* 07/25/17 05:55 Total Bilirubin 0.6 mg/dL (0.2-1.0) 07/25/17 05:55 AST 42 U/L (15-37) H D 07/25/17 05:55 ALT 74 U/L (12-78) D 07/25/17 05:55 Alkaline Phosphatase 146 U/L (45-117) H 07/25/17 05:55 Total Protein 4.9 g/dl (6.4-8.2) L 07/25/17 05:55 Albumin 1.4 g/dl (3.4-5.0) L 07/25/17 05:55 CARDIAC ENZYMES Creatine Kinase 237 IU/L (39-308) 07/07/17 13:00 Troponin I 1.09 ng/ml (0.00-0.05) H* 07/07/17 13:00 IMP: S/P Cardiopulmonary Arrest with subsequent Anoxic Brain Injury Acute on Chronic Systolic Heart Failure +Troponins Acute on Chronic Renal Failure Lactic Acidosis resolved HTN HIV Hep C Smoker - ID following - monitor urine output, creatinine - Daily sedation vacations to assess mental status - Taper FiO2 to keep SpO2 >90% - Wean trials as tolerated, failed 2/2 RR >30 - Enteral feeds - DVT/GI prophylaxis - Glycemic control 140 to 180 mg/dL - poor overall prognosis for meaningful recovery: pt would not want to be kept alive without quality of life, awaiting decision from family possible withdrawal of mechanical ventilation and focus on comfort measures Boerem ACNP Pulm/CCM CCT: 35m
[2017-07-25] MEDS: CARVEDILOL 25 MG TABLET (FP) PO SCH ×2 (10:00→21:32)
--- NOTE | 2017-07-25 11:57 | PN ---
Progress Note (short form) - Note Progress Note: Neurology History of Present Illness: Mr. Welch is a 56 y/o man w/ HTN, HL, DM, CKD, HIV on HAART, EF 49.5%, BIBA for SOB. Reportedly had been experiencing worsening SOB & SAMUELS w/ assoc wheezing for several days prior to admission. While in route developed further respiratory distress and in ER had agonal breathing and unresponsive. No pulse noted on stretcher transferand chest compressions were initiated. The Pt was resuscitated per ACLS protocol for approximately 5 minutes according to note, receiving epi x 2, bicarb x 2. Pt was intubated and placed on ventilator and given nebulizers and steroids. Pt admitted to the ICU s/p Cardiac Arrest and respiratory failure. The patient has been on propofol but having myoclonic twitches especially in right foot. Given his history, this is likely myoclonic jerks 2/2 to anoxic brain injury. Klonipin was started, twitching improved and not visible at this time. There is minimal pupil contriction from 3mm to 2mm and therefore does not meet criteria for brain . However, only minimal brainstem activity and no significant improvement thus far. EEG completed, showed mix of theta and beta activity, consistent with encephalopathy. Again, not brain . CT head completed and showed cerebral edema, repeated and showed improved cerebral edema likely due to steroids given. Attempts to wean propofol led to tachycardia and tachypnea. Awaiting family decision on plan for care. Clinically without signficiant improvement. Attempt to taper sedation today led to tachypnea. Family consider compassionate extubation. Prognosis is poor as documented and at minimum would require trach, vent, peg. Active Medications Acetaminophen (Tylenol Oral Solution -) 650 mg PO Q6H PRN PRN Reason: FEVER OR PAIN Last Admin: 07/24/17 21:12 Dose: 650 mg Artificial Tears (Artificial Tears) 1 drop OU BID PRN PRN Reason: DRY EYES Carvedilol (Coreg -) 25 mg PO BID [facility] Last Admin: 07/25/17 10:00 Dose: 25 mg Hydralazine HCl (Apresoline -) 25 mg PO TID [facility] Last Admin: 07/25/17 06:37 Dose: 25 mg Propofol (Diprivan -) 1,000,000 mcg in 100 mls @ 2.807 mls/hr IVPB TITR [facility]; 5 MCG/KG/MIN PRN Reason: Protocol Last Admin: 07/24/17 19:02 Dose: 50 mcg/kg/min, 28.066 mls/hr Sodium Bicarbonate 50 meq/ (Sodium Chloride) 1,050 mls @ 75 mls/hr IVPB Q14H [facility] Last Admin: 07/25/17 00:30 Dose: 75 mls/hr Insulin Aspart (Novolog Vial Sliding Scale -) 1 vial SQ Q4HPO [facility] PRN Reason: Protocol Last Admin: 07/25/17 11:05 Dose: 6 units Insulin Detemir (Levemir Vial) 20 units SQ HS [facility] Labetalol HCl (Normodyne Injection -) 10 mg IVPUSH Q4H PRN PRN Reason: HYPERTENSION Last Admin: 07/22/17 09:05 Dose: 10 mg Sodium Bicarbonate (Sodium Bicarbonate -) 1,300 mg PO TID [facility] Last Admin: 07/25/17 06:37 Dose: 1,300 mg Physical Exam Vital Signs Temperature 99.0 F 07/25/17 06:00 Pulse Rate 71 07/25/17 10:00 Respiratory Rate 32 H 07/25/17 10:00 Blood Pressure 117/56 07/25/17 10:00 O2 Sat by Pulse Oximetry (%) 100 07/25/17 09:55 Constitutional: Yes: Well Nourished, No Distress, Calm Eyes: Yes: PERRL, Other (R Upward Lat Gaze.) HENT: Yes: WNL, Atraumatic, Normocephalic Neck: Yes: WNL, Supple, Trachea Midline Cardiovascular: Yes: WNL, Regular Rate and Rhythm Respiratory: Yes: Diminished, Mechanically Ventilated, Wheezes Gastrointestinal: Yes: Abdomen, Obese, Distention, Hyperactive Bowel Sounds ...Rectal Exam: Yes: Deferred Renal/: Yes: Rocha Present Breast(s): Yes: WNL Extremities: Yes: Other (Clubbed Fingers.) Edema: Yes Edema: LLE: 1+, RLE: 1+ Peripheral Pulses WNL: Yes Integumentary: Yes: WNL Neurological: No facial droop, not responding to pain, not gagging on suction, R pupil 2mm --> 1mm, no spontaneous movement, R foot myoclonic twitching noted CBCD WBC 14.9 K/mm3 (4.0-10.0) H 07/25/17 05:55 RBC 2.72 M/mm3 (4.00-5.60) L 07/25/17 05:55 Hgb 7.5 GM/dL (11.7-16.9) L 07/25/17 05:55 Hct 23.4 % (35.4-49) L 07/25/17 05:55 MCV 85.9 fl (80-96) 07/25/17 05:55 MCHC 32.1 g/dl (32.0-35.9) 07/25/17 05:55 RDW 18.5 % (11.9-15.9) H 07/25/17 05:55 Plt Count 125 K/MM3 (134-434) L 07/25/17 05:55 MPV 9.6 fl (7.5-11.1) 07/25/17 05:55 CMP Sodium 135 mmol/L (136-145) L 07/25/17 05:55 Potassium 3.4 mmol/L (3.5-5.1) L 07/25/17 05:55 Chloride 106 mmol/L (98-107) 07/25/17 05:55 Carbon Dioxide 8 mmol/L (21-32) L 07/25/17 05:55 Anion Gap 21 (8-16) H 07/25/17 05:55 BUN 91 mg/dL (7-18) H 07/25/17 05:55 Creatinine 5.3 mg/dL (0.7-1.3) H 07/25/17 05:55 Creat Clearance w eGFR 11.24 (>60) 07/25/17 05:55 Calcium 6.9 mg/dL (8.5-10.1) L* 07/25/17 05:55 Total Bilirubin 0.6 mg/dL (0.2-1.0) 07/25/17 05:55 AST 42 U/L (15-37) H D 07/25/17 05:55 ALT 74 U/L (12-78) D 07/25/17 05:55 Alkaline Phosphatase 146 U/L (45-117) H 07/25/17 05:55 Total Protein 4.9 g/dl (6.4-8.2) L 07/25/17 05:55 Albumin 1.4 g/dl (3.4-5.0) L 07/25/17 05:55 CT head X2 as above Plan: 56 y/o man w/ HTN, HL, DM, CKD, HIV on HAART, EF 49.5%, BIBA for SOB. Reportedly had been experiencing worsening SOB & SAMUELS w/ assoc wheezing for several days prior to admission. While in route developed further respiratory distress and in ER had agonal breathing and unresponsive. No pulse noted on stretcher transferand chest compressions were initiated. The Pt was resuscitated per ACLS protocol for approximately 5 minutes according to note, receiving epi x 2, bicarb x 2. Pt was intubated and placed on ventilator and given nebulizers and steroids. Pt admitted to the ICU s/p Cardiac Arrest and respiratory failure. The patient has been on propofol but having myoclonic twitches especially in right foot which have improved with Klonipin Given his history, this was likely myoclonic jerks 2/2 to anoxic brain injury and would not require AEDS Getting ICU care since admission klonipin 1mg twice daily added and subsided, no longer on Klonipin Has been on Mechanical ventilation, not able to be weaned as any attempt at sedation reduction led to tachypnea Initial CT head with cerebral edema noted and loss of balderas white differentiation Repeat CT with cortical sulci more visible and less edema, though evidence of anoxic brain injury in basal ganglia EEG confirmed patient with brain activity, mix of delta and theta, consistent with encephalopathy Spoke with daughter extensively recently regarding lack of clinical changes this week Family to decide on goals of care, palliative has been involved Possibly would require trach, vent, peg vs. compassionate extubation No significant clinical improvement thus far Critical Care Time 35 mins
--- NOTE | 2017-07-25 12:37 | PN ---
Progress Note, Physician History of Present Illness: No events Remains intubated and sedated on Propofol - Current Medication List Current Medications: Active Medications Acetaminophen (Tylenol Oral Solution -) 650 mg PO Q6H PRN PRN Reason: FEVER OR PAIN Last Admin: 07/24/17 21:12 Dose: 650 mg Artificial Tears (Artificial Tears) 1 drop OU BID PRN PRN Reason: DRY EYES Carvedilol (Coreg -) 25 mg PO BID [facility] Last Admin: 07/25/17 10:00 Dose: 25 mg Hydralazine HCl (Apresoline -) 25 mg PO TID [facility] Last Admin: 07/25/17 06:37 Dose: 25 mg Propofol (Diprivan -) 1,000,000 mcg in 100 mls @ 2.807 mls/hr IVPB TITR [facility]; 5 MCG/KG/MIN PRN Reason: Protocol Last Admin: 07/24/17 19:02 Dose: 50 mcg/kg/min, 28.066 mls/hr Sodium Bicarbonate 50 meq/ (Sodium Chloride) 1,050 mls @ 75 mls/hr IVPB Q14H [facility] Last Admin: 07/25/17 00:30 Dose: 75 mls/hr Insulin Aspart (Novolog Vial Sliding Scale -) 1 vial SQ Q4HPO [facility] PRN Reason: Protocol Last Admin: 07/25/17 11:05 Dose: 6 units Insulin Detemir (Levemir Vial) 20 units SQ HS [facility] Labetalol HCl (Normodyne Injection -) 10 mg IVPUSH Q4H PRN PRN Reason: HYPERTENSION Last Admin: 07/22/17 09:05 Dose: 10 mg Sodium Bicarbonate (Sodium Bicarbonate -) 1,300 mg PO TID [facility] Last Admin: 07/25/17 06:37 Dose: 1,300 mg - Objective Vital Signs: Vital Signs Temperature 99.0 F 07/25/17 06:00 Pulse Rate 71 07/25/17 10:00 Respiratory Rate 35 H 07/25/17 11:57 Blood Pressure 117/56 07/25/17 10:00 O2 Sat by Pulse Oximetry (%) 100 07/25/17 09:55 Constitutional: Yes: No Distress, Other (Intubated and sedated) Respiratory: Yes: Regular Extremities: Yes: WNL Edema: No Labs: CBC, BMP 07/25/17 05:55 07/25/17 05:55 INR, PTT INR 1.18 (0.82-1.09) H 07/06/17 05:00 Assessment/Plan a/p: 56 yo smoker with h/o mild lv dysfunction, htn, hl, ckd, hiv, dm p/w progressive sob and subsequent PEA arrest with EMS (s/p resuscitation). acute hypoxic resp failure, acute on chronic syst CHF, NSTEMI, cardiac arrest ( PEA): -remains without suspected volume/chf--no diuresis for now -may need trach vs compassionate wean from vent-->awaiting decision from family FLORECITA on CKD, hypernatremia: -baseline creat here 2.8 in 05/26. initially 2.4 on presentation to ER, up to 6s here. -suspect hypoperfusion/atn as cause -holding lasix -renal following HTN: bp better, cont current meds
[2017-07-25] MEDS: PROPOFOL 1,000,000 MCG/100 ML VIAL IVPB SCH (13:05)
--- NOTE | 2017-07-25 16:23 | PN ---
Progress Note, Physician History of Present Illness: Pt seen and examined at bedside. He remains in the ICU. Daughter is at bedside and care was discussed with her. - Current Medication List Current Medications: Active Medications Acetaminophen (Tylenol Oral Solution -) 650 mg PO Q6H PRN PRN Reason: FEVER OR PAIN Last Admin: 07/24/17 21:12 Dose: 650 mg Artificial Tears (Artificial Tears) 1 drop OU BID PRN PRN Reason: DRY EYES Carvedilol (Coreg -) 25 mg PO BID [facility] Last Admin: 07/25/17 10:00 Dose: 25 mg Hydralazine HCl (Apresoline -) 25 mg PO TID [facility] Last Admin: 07/25/17 14:52 Dose: 25 mg Propofol (Diprivan -) 1,000,000 mcg in 100 mls @ 2.807 mls/hr IVPB TITR [facility]; 5 MCG/KG/MIN PRN Reason: Protocol Last Admin: 07/25/17 13:05 Dose: 50 mcg/kg/min, 28.066 mls/hr Sodium Bicarbonate 50 meq/ (Sodium Chloride) 1,050 mls @ 75 mls/hr IVPB Q14H [facility] Last Admin: 07/25/17 00:30 Dose: 75 mls/hr Insulin Aspart (Novolog Vial Sliding Scale -) 1 vial SQ Q4HPO [facility] PRN Reason: Protocol Last Admin: 07/25/17 14:53 Dose: 6 units Insulin Detemir (Levemir Vial) 20 units SQ HS [facility] Labetalol HCl (Normodyne Injection -) 10 mg IVPUSH Q4H PRN PRN Reason: HYPERTENSION Last Admin: 07/22/17 09:05 Dose: 10 mg Sodium Bicarbonate (Sodium Bicarbonate -) 1,300 mg PO TID [facility] Last Admin: 07/25/17 14:59 Dose: 1,300 mg - Objective Vital Signs: Vital Signs Temperature 99.0 F 07/25/17 06:00 Pulse Rate 73 07/25/17 14:00 Respiratory Rate 34 H 07/25/17 14:20 Blood Pressure 129/57 07/25/17 14:00 O2 Sat by Pulse Oximetry (%) 100 07/25/17 09:55 Constitutional: Yes: Calm Eyes: Yes: Conjunctiva Clear Cardiovascular: Yes: S1, S2 Respiratory: Yes: Mechanically Ventilated Gastrointestinal: Yes: Soft Genitourinary: Yes: Rocha Present Musculoskeletal: Yes: Muscle Weakness Edema: Yes Edema: LLE: 1+, RLE: 1+ Integumentary: Yes: Tattoos Neurological: Yes: Lethargy Labs: CBC, BMP 07/25/17 05:55 07/25/17 05:55 INR, PTT INR 1.18 (0.82-1.09) H 07/06/17 05:00 Problem List - Problems (1) FLORECITA (acute kidney injury) Code(s): N17.9 - ACUTE KIDNEY FAILURE, UNSPECIFIED (2) CHF (congestive heart failure) Code(s): I50.9 - HEART FAILURE, UNSPECIFIED Qualifiers: Congestive heart failure type: unspecified congestive heart failure type Congestive heart failure chronicity: unspecified congestive heart failure chronicity Qualified Code(s): I50.9 - Heart failure, unspecified (3) Cardiopulmonary arrest with successful resuscitation Code(s): I46.9 - CARDIAC ARREST, CAUSE UNSPECIFIED (4) Chronic kidney disease Code(s): N18.9 - CHRONIC KIDNEY DISEASE, UNSPECIFIED (5) Hypertension Code(s): I10 - ESSENTIAL (PRIMARY) HYPERTENSION (6) Chronic kidney disease Code(s): N18.9 - CHRONIC KIDNEY DISEASE, UNSPECIFIED Assessment/Plan Current Medications Generic Name Dose Route Start Last Admin Trade Name Freq PRN Reason Stop Dose Admin Acetaminophen 650 mg 07/14/17 16:02 07/24/17 21:12 Tylenol Oral Solution - PO 650 mg Q6H PRN Administration FEVER OR PAIN Artificial Tears 1 drop 07/12/17 15:20 Artificial Tears OU BID PRN DRY EYES Carvedilol 25 mg 07/18/17 22:00 07/25/17 10:00 Coreg - PO 25 mg BID [facility] Administration Hydralazine HCl 25 mg 07/22/17 14:00 07/25/17 14:52 Apresoline - PO 25 mg TID [facility] Administration Propofol 1,000,000 mcg in 100 mls @ 2.807 mls/hr 07/10/17 14:00 07/25/17 13: 05 Diprivan - IVPB 50 mcg/kg/min TITR [facility] 28.066 mls/hr Protocol Administration 5 MCG/KG/MIN Sodium Bicarbonate 50 meq/ 1,050 mls @ 75 mls/hr 07/23/17 19:15 07/25/17 00: 30 Sodium Chloride IVPB 75 mls/hr Q14H [facility] Administration Insulin Aspart 1 vial 07/24/17 20:16 07/25/17 14:53 Novolog Vial Sliding Scale - SQ 6 units Q4HPO [facility] Administration Protocol Insulin Detemir 20 units 07/24/17 23:12 Levemir Vial SQ HS [facility] Labetalol HCl 10 mg 07/09/17 11:12 07/22/17 09:05 Normodyne Injection - IVPUSH 10 mg Q4H PRN Administration HYPERTENSION Sodium Bicarbonate 1,300 mg 07/21/17 22:00 07/25/17 14:59 Sodium Bicarbonate - PO 1,300 mg TID [facility] Administration Impression 1. FLORECITA 2. CKD 3. cardiac arrest 4. CHF 5. HIV 6. hypomagnesemia 7. anoxic brain injury 8. anemia 9. hyperglycemia 10. HTN 11. acidosis 12. DM/DKA 13. resp failure requiring intubation Plan - renal function is worse - family do not want HD therapy, discussed with his daughter - cont bicarb with fluids - vent support - discussed with nursing staff - discussed with ICU team - monitor BP - likely ATN from hypotension during arrest - cont to monitor urine output - prognosis poor
[2017-07-25] MEDS: SODIUM BICARBONATE 8.4% - 75 MEQ in SODIUM CHLORIDE 0.45% 1,000 ML IVPB SCH (17:30)
--- NOTE | 2017-07-25 19:46 | PN ---
Progress Note, Physician History of Present Illness: No new change - Current Medication List Current Medications: Active Medications Acetaminophen (Tylenol Oral Solution -) 650 mg PO Q6H PRN PRN Reason: FEVER OR PAIN Last Admin: 07/24/17 21:12 Dose: 650 mg Artificial Tears (Artificial Tears) 1 drop OU BID PRN PRN Reason: DRY EYES Carvedilol (Coreg -) 25 mg PO BID [facility] Last Admin: 07/25/17 10:00 Dose: 25 mg Hydralazine HCl (Apresoline -) 25 mg PO TID [facility] Last Admin: 07/25/17 14:52 Dose: 25 mg Propofol (Diprivan -) 1,000,000 mcg in 100 mls @ 2.807 mls/hr IVPB TITR [facility]; 5 MCG/KG/MIN PRN Reason: Protocol Last Admin: 07/25/17 13:05 Dose: 50 mcg/kg/min, 28.066 mls/hr Sodium Bicarbonate 75 meq/ (Sodium Chloride) 1,075 mls @ 75 mls/hr IVPB ASDIR [facility] Last Admin: 07/25/17 17:30 Dose: 75 mls/hr Insulin Aspart (Novolog Vial Sliding Scale -) 1 vial SQ Q4HPO [facility] PRN Reason: Protocol Last Admin: 07/25/17 19:23 Dose: 6 units Insulin Detemir (Levemir Vial) 20 units SQ HS [facility] Labetalol HCl (Normodyne Injection -) 10 mg IVPUSH Q4H PRN PRN Reason: HYPERTENSION Last Admin: 07/22/17 09:05 Dose: 10 mg Sodium Bicarbonate (Sodium Bicarbonate -) 1,300 mg PO TID [facility] Last Admin: 07/25/17 14:59 Dose: 1,300 mg - Objective Vital Signs: Vital Signs Temperature 99.0 F 07/25/17 06:00 Pulse Rate 73 07/25/17 18:00 Respiratory Rate 26 H 07/25/17 19:24 Blood Pressure 122/55 07/25/17 18:00 O2 Sat by Pulse Oximetry (%) 100 07/25/17 09:55 HENT: Yes: Other ((+) ETT) Neck: Yes: WNL, Supple Cardiovascular: Yes: WNL, Regular Rate and Rhythm Respiratory: Yes: Other (Decreased BS B/L) Gastrointestinal: Yes: WNL, Normal Bowel Sounds, Soft Labs: CBC, BMP 07/25/17 05:55 07/25/17 05:55 INR, PTT INR 1.18 (0.82-1.09) H 07/06/17 05:00 Problem List - Problems (1) Respiratory failure Assessment/Plan: Poor prognosis and condition is terminal Cont nebulizers/IV sedation Awaiting family decision about terminal weaning/terminal extubation Code(s): J96.90 - RESPIRATORY FAILURE, UNSP, UNSP W HYPOXIA OR HYPERCAPNIA (2) Cardiopulmonary arrest with successful resuscitation Assessment/Plan: Pt remains intubated w/ poor prognosis Pt w/ anoxic brain injury/cerebral edema Code(s): I46.9 - CARDIAC ARREST, CAUSE UNSPECIFIED (3) Uncontrolled diabetes mellitus Code(s): E11.65 - TYPE 2 DIABETES MELLITUS WITH HYPERGLYCEMIA (4) Acute on chronic diastolic CHF (congestive heart failure) Code(s): I50.33 - ACUTE ON CHRONIC DIASTOLIC (CONGESTIVE) HEART FAILURE (5) Anemia Code(s): D64.9 - ANEMIA, UNSPECIFIED
[2017-07-25] MEDS: INSULIN DETEMIR 100 UNITS/ML MDV SQ SCH (21:32)
[2017-07-25] MEDS ORDERED: INSULIN DETEMIR 100 UNITS/ML MDV SQ SCH (22:00)
[2017-07-26] MEDS: INSULIN SLIDING SCALE (NOVOLOG) 1 VIAL SQ SCH ×6 (02:30→22:20)
[2017-07-26] MEDS: SODIUM BICARBONATE 650 MG TABLET PO SCH ×3 (05:33→22:48)
[2017-07-26] MEDS: hydrALAZINE HCL 25 MG TABLET (FP) PO SCH ×3 (05:33→22:49)
[2017-07-26 06:23] LABS: MCH 27.7 pg (25.7-33.7); MCHC 32.7 g/dl (32.0-35.9); MEAN CELL VOLUME 84.8 fl (80-96); MEAN PLT VOLUME 9.5 fl (7.5-11.1); PLATELET COUNT 140 K/MM3 (134-434); RDW 17.8 % (11.9-15.9); WHITE BLOOD COUNT 13.1 K/mm3 (4.0-10.0)
[2017-07-26 06:46] LABS: ANION GAP 23 (8-16); CO2 9 mmol/L (21-32); CREATININE 5.7 mg/dL (0.7-1.3); GLUCOSE,RANDOM 180 mg/dL (74-106); MAGNESIUM 2.1 mg/dL (1.8-2.4)
[2017-07-26 06:53] LABS: PHOSPHOROUS 8.9 mg/dL (2.5-4.9)
--- NOTE | 2017-07-26 09:08 | PN ---
Progress Note, Physician History of Present Illness: Unresponsive on ventilator Temps down Afebrile WBC remains elevated 13k - Current Medication List Current Medications: Active Medications Acetaminophen (Tylenol Oral Solution -) 650 mg PO Q6H PRN PRN Reason: FEVER OR PAIN Last Admin: 07/24/17 21:12 Dose: 650 mg Artificial Tears (Artificial Tears) 1 drop OU BID PRN PRN Reason: DRY EYES Carvedilol (Coreg -) 25 mg PO BID [facility] Last Admin: 07/25/17 21:32 Dose: 25 mg Hydralazine HCl (Apresoline -) 25 mg PO TID [facility] Last Admin: 07/26/17 05:33 Dose: 25 mg Propofol (Diprivan -) 1,000,000 mcg in 100 mls @ 2.807 mls/hr IVPB TITR [facility]; 5 MCG/KG/MIN PRN Reason: Protocol Last Admin: 07/25/17 13:05 Dose: 50 mcg/kg/min, 28.066 mls/hr Sodium Bicarbonate 75 meq/ (Sodium Chloride) 1,075 mls @ 75 mls/hr IVPB ASDIR [facility] Last Admin: 07/25/17 17:30 Dose: 75 mls/hr Insulin Aspart (Novolog Vial Sliding Scale -) 1 vial SQ Q4HPO [facility] PRN Reason: Protocol Last Admin: 07/26/17 05:34 Dose: 2 units Insulin Detemir (Levemir Vial) 20 units SQ HS [facility] Last Admin: 07/25/17 21:32 Dose: 20 units Labetalol HCl (Normodyne Injection -) 10 mg IVPUSH Q4H PRN PRN Reason: HYPERTENSION Last Admin: 07/22/17 09:05 Dose: 10 mg Sodium Bicarbonate (Sodium Bicarbonate -) 1,300 mg PO TID [facility] Last Admin: 07/26/17 05:33 Dose: 1,300 mg - Objective Vital Signs: Vital Signs Temperature 98.7 F 07/26/17 05:50 Pulse Rate 68 07/26/17 05:50 Respiratory Rate 32 H 07/26/17 07:00 Blood Pressure 117/54 07/26/17 05:50 O2 Sat by Pulse Oximetry (%) 98 07/26/17 01:13 Constitutional: Yes: No Distress Eyes: Yes: Conjunctiva Clear Cardiovascular: Yes: Regular Rate and Rhythm, S1, S2 Respiratory: Yes: Mechanically Ventilated Gastrointestinal: Yes: Normal Bowel Sounds, Soft. No: Tenderness Edema: Yes Labs: CBC, BMP 07/26/17 06:00 07/26/17 06:00 INR, PTT INR 1.18 (0.82-1.09) H 07/06/17 05:00 Assessment/Plan S/P cardiopulmonary arrest anoxic encephalopathy Pulmonary edema, possible aspiration pneumonia Renal failure Leukocytosis HIV + Hemodynamic/ ventilatory support supportive care Prognosis poor
[2017-07-26] MEDS: CARVEDILOL 25 MG TABLET (FP) PO SCH ×2 (09:29→22:49)
--- NOTE | 2017-07-26 09:54 | PN ---
Progress Note, Physician History of Present Illness: No events Remains on Propofol sedation and intubated - Current Medication List Current Medications: Active Medications Acetaminophen (Tylenol Oral Solution -) 650 mg PO Q6H PRN PRN Reason: FEVER OR PAIN Last Admin: 07/24/17 21:12 Dose: 650 mg Artificial Tears (Artificial Tears) 1 drop OU BID PRN PRN Reason: DRY EYES Carvedilol (Coreg -) 25 mg PO BID [facility] Last Admin: 07/26/17 09:29 Dose: 25 mg Hydralazine HCl (Apresoline -) 25 mg PO TID [facility] Last Admin: 07/26/17 05:33 Dose: 25 mg Propofol (Diprivan -) 1,000,000 mcg in 100 mls @ 2.807 mls/hr IVPB TITR [facility]; 5 MCG/KG/MIN PRN Reason: Protocol Last Admin: 07/25/17 13:05 Dose: 50 mcg/kg/min, 28.066 mls/hr Sodium Bicarbonate 75 meq/ (Sodium Chloride) 1,075 mls @ 75 mls/hr IVPB ASDIR [facility] Last Admin: 07/25/17 17:30 Dose: 75 mls/hr Insulin Aspart (Novolog Vial Sliding Scale -) 1 vial SQ Q4HPO [facility] PRN Reason: Protocol Last Admin: 07/26/17 05:34 Dose: 2 units Insulin Detemir (Levemir Vial) 20 units SQ HS [facility] Last Admin: 07/25/17 21:32 Dose: 20 units Labetalol HCl (Normodyne Injection -) 10 mg IVPUSH Q4H PRN PRN Reason: HYPERTENSION Last Admin: 07/22/17 09:05 Dose: 10 mg Sodium Bicarbonate (Sodium Bicarbonate -) 1,300 mg PO TID [facility] Last Admin: 07/26/17 05:33 Dose: 1,300 mg - Objective Vital Signs: Vital Signs Temperature 98.7 F 07/26/17 05:50 Pulse Rate 68 07/26/17 05:50 Respiratory Rate 32 H 07/26/17 07:00 Blood Pressure 117/54 07/26/17 05:50 O2 Sat by Pulse Oximetry (%) 98 07/26/17 01:13 Constitutional: Yes: Other (Intubated) HENT: Yes: Atraumatic Neck: Yes: Supple Cardiovascular: Yes: Regular Rate and Rhythm Respiratory: Yes: CTA Bilaterally Gastrointestinal: Yes: Soft Extremities: Yes: WNL Edema: No Labs: CBC, BMP 07/26/17 06:00 07/26/17 06:00 INR, PTT INR 1.18 (0.82-1.09) H 07/06/17 05:00 Assessment/Plan a/p: 56 yo smoker with h/o mild lv dysfunction, htn, hl, ckd, hiv, dm p/w progressive sob and subsequent PEA arrest with EMS (s/p resuscitation). acute hypoxic resp failure, acute on chronic syst CHF, NSTEMI, cardiac arrest ( PEA): -remains without suspected volume/chf--no diuresis for now -may need trach vs compassionate wean from vent-->awaiting decision from family FLORECITA on CKD, hypernatremia: -baseline creat here 2.8 in 05/26. initially 2.4 on presentation to ER, up to 6s here. -suspect hypoperfusion/atn as cause -holding lasix -renal following HTN: bp better, cont current meds
--- NOTE | 2017-07-26 10:43 | PN ---
Progress Note (short form) - Note Progress Note: Pt seen and examined in the ICU -tachypneic and only withdrawal to noxious stimuli with dailiy interuption of sedation -family conversation leaning toward compassionate extubation Vital Signs Temp 98.7 F 07/26/17 05:50 Pulse 66 07/26/17 10:29 Resp 30 H 07/26/17 10:29 BP 114/58 07/26/17 08:00 Pulse Ox 100 07/26/17 10:29 Intake & Output 07/25/17 07/25/17 07/26/17 11:59 23:59 11:59 Intake Total 1733.3 2361 1731.9 Output Total 150 400 150 Balance 1583.3 1961 1581.9 Weight 107.161 kg 108.465 kg Intake: IV 202.3 1771 725.9 DIPRIVAN - 1,000,000 mcg 202.3 496 200.9 In 100 ml @ 5 MCG/KG/MIN 2.807 mls/hr IVPB TITR PAULINE Rx#:[id number] SALINE LOCK EJ 1275 525 IVPB 525 Tube Feeding 406 290 406 Tube Irrigant 600 300 600 Output: Urine 150 400 150 Rocha 150 400 150 Other: Voiding Method Indwelling Catheter Indwelling Catheter Bowel Movement Yes: diarrhea Yes: diarrhea Yes: diarrhea Weight Measurement Method [facility] Active Medications Acetaminophen (Tylenol Oral Solution -) 650 mg PO Q6H PRN PRN Reason: FEVER OR PAIN Last Admin: 07/24/17 21:12 Dose: 650 mg Artificial Tears (Artificial Tears) 1 drop OU BID PRN PRN Reason: DRY EYES Carvedilol (Coreg -) 25 mg PO BID [facility] Last Admin: 07/26/17 09:29 Dose: 25 mg Fentanyl (Sublimaze Injection -) 75 mcg IVPUSH Q1H PRN PRN Reason: AGITATION Stop: 07/27/17 10:44 Hydralazine HCl (Apresoline -) 25 mg PO TID [facility] Last Admin: 07/26/17 05:33 Dose: 25 mg Propofol (Diprivan -) 1,000,000 mcg in 100 mls @ 2.807 mls/hr IVPB TITR PAULINE; 5 MCG/KG/MIN PRN Reason: Protocol Last Admin: 07/25/17 13:05 Dose: 50 mcg/kg/min, 28.066 mls/hr Sodium Bicarbonate 75 meq/ (Sodium Chloride) 1,075 mls @ 75 mls/hr IVPB ASDIR PAULINE Last Admin: 07/25/17 17:30 Dose: 75 mls/hr Potassium Chloride (Potassium Chloride 10 Meq Premix Ivpb -) 10 meq in 100 mls @ 100 mls/hr IVPB Q60M PAULINE Stop: 07/26/17 12:29 Insulin Aspart (Novolog Vial Sliding Scale -) 1 vial SQ Q4HPO PAULINE PRN Reason: Protocol Last Admin: 07/26/17 05:34 Dose: 2 units Insulin Detemir (Levemir Vial) 20 units SQ HS [facility] Last Admin: 07/25/17 21:32 Dose: 20 units Labetalol HCl (Normodyne Injection -) 10 mg IVPUSH Q4H PRN PRN Reason: HYPERTENSION Last Admin: 07/22/17 09:05 Dose: 10 mg Sodium Bicarbonate (Sodium Bicarbonate -) 1,300 mg PO TID [facility] Last Admin: 07/26/17 05:33 Dose: 1,300 mg Exam: HEENT: PERRL, does not tract Pulm: coarse rhonchi bilateral, thick secretions CV: S1, S2 Abd: distended and soft Ext: WWP< +1-2 Le edema Neuro: withdrawals to noxious stimulation, not responsive to verbal CBCD WBC 13.1 K/mm3 (4.0-10.0) H 07/26/17 06:00 RBC 2.76 M/mm3 (4.00-5.60) L 07/26/17 06:00 Hgb 7.6 GM/dL (11.7-16.9) L 07/26/17 06:00 Hct 23.4 % (35.4-49) L 07/26/17 06:00 MCV 84.8 fl (80-96) 07/26/17 06:00 MCHC 32.7 g/dl (32.0-35.9) 07/26/17 06:00 RDW 17.8 % (11.9-15.9) H 07/26/17 06:00 Plt Count 140 K/MM3 (134-434) 07/26/17 06:00 MPV 9.5 fl (7.5-11.1) 07/26/17 06:00 CMP Sodium 134 mmol/L (136-145) L 07/26/17 06:00 Potassium 2.9 mmol/L (3.5-5.1) L* 07/26/17 06:00 Chloride 102 mmol/L (98-107) 07/26/17 06:00 Carbon Dioxide 9 mmol/L (21-32) L 07/26/17 06:00 Anion Gap 23 (8-16) H 07/26/17 06:00 BUN 96 mg/dL (7-18) H 07/26/17 06:00 Creatinine 5.7 mg/dL (0.7-1.3) H 07/26/17 06:00 Creat Clearance w eGFR 11.24 (>60) 07/25/17 05:55 Calcium 7.0 mg/dL (8.5-10.1) L 07/26/17 06:00 Total Bilirubin 0.6 mg/dL (0.2-1.0) 07/25/17 05:55 AST 42 U/L (15-37) H D 07/25/17 05:55 ALT 74 U/L (12-78) D 07/25/17 05:55 Alkaline Phosphatase 146 U/L (45-117) H 07/25/17 05:55 Total Protein 4.9 g/dl (6.4-8.2) L 07/25/17 05:55 Albumin 1.4 g/dl (3.4-5.0) L 07/25/17 05:55 IMP: S/P Cardiopulmonary Arrest with subsequent Anoxic Brain Injury Acute on Chronic Systolic Heart Failure +Troponins Acute on Chronic Renal Failure Lactic Acidosis resolved HTN HIV Hep C Smoker - ID following - monitor urine output, creatinine, nephrology added NaHCO3 - adding fentanyl prn for restlessness, tachypnea, comfort on vent. - Taper FiO2 to keep SpO2 >90% - Wean trials as tolerated, failed 2/2 RR >30 TV < 150 - Enteral feeds - DVT/GI prophylaxis - Glycemic control 140 to 180 mg/dL - poor overall prognosis for meaningful recovery: pt would not want to be kept alive without quality of life, awaiting decision from family possible withdrawal of mechanical ventilation and focus on comfort measures Mike Moreland [facility] [id number]
[2017-07-26] MEDS: KCL 10 MEQ IVPB 10 MEQ/100 ML INFUS.BAG IVPB SCH ×2 (11:04→12:08)
--- NOTE | 2017-07-26 12:29 | PN ---
Progress Note (short form) - Note Progress Note: Neurology History of Present Illness: Mr. Welch is a 56 y/o man w/ HTN, HL, DM, CKD, HIV on HAART, EF 49.5%, BIBA for SOB. Reportedly had been experiencing worsening SOB & SAMUELS w/ assoc wheezing for several days prior to admission. While in route developed further respiratory distress and in ER had agonal breathing and unresponsive. No pulse noted on stretcher transferand chest compressions were initiated. The Pt was resuscitated per ACLS protocol for approximately 5 minutes according to note, receiving epi x 2, bicarb x 2. Pt was intubated and placed on ventilator and given nebulizers and steroids. Pt admitted to the ICU s/p Cardiac Arrest and respiratory failure. The patient has been on propofol but having myoclonic twitches especially in right foot. Given his history, this is likely myoclonic jerks 2/2 to anoxic brain injury. Klonipin was started, twitching improved and not visible at this time. There is minimal pupil contriction from 3mm to 2mm and therefore does not meet criteria for brain . However, only minimal brainstem activity and no significant improvement thus far. EEG completed, showed mix of theta and beta activity, consistent with encephalopathy. Again, not brain . CT head completed and showed cerebral edema, repeated and showed improved cerebral edema likely due to steroids given. Attempts to wean propofol led to tachycardia and tachypnea. Awaiting family decision on plan for care. Clinically without signficiant improvement. Attempt to taper sedation today led to tachypnea. Family consider compassionate extubation. Prognosis is poor as documented and at minimum would require trach, vent, peg. Spoke to ICU team including nurse and attending. Family still undecided. Still no significant improvement. Active Medications Acetaminophen (Tylenol Oral Solution -) 650 mg PO Q6H PRN PRN Reason: FEVER OR PAIN Last Admin: 07/24/17 21:12 Dose: 650 mg Artificial Tears (Artificial Tears) 1 drop OU BID PRN PRN Reason: DRY EYES Carvedilol (Coreg -) 25 mg PO BID [facility] Last Admin: 07/26/17 09:29 Dose: 25 mg Fentanyl (Sublimaze Injection -) 75 mcg IVPUSH Q1H PRN PRN Reason: AGITATION Stop: 07/27/17 10:44 Hydralazine HCl (Apresoline -) 25 mg PO TID [facility] Last Admin: 07/26/17 05:33 Dose: 25 mg Propofol (Diprivan -) 1,000,000 mcg in 100 mls @ 2.807 mls/hr IVPB TITR PAULINE; 5 MCG/KG/MIN PRN Reason: Protocol Last Admin: 07/25/17 13:05 Dose: 50 mcg/kg/min, 28.066 mls/hr Sodium Bicarbonate 75 meq/ (Sodium Chloride) 1,075 mls @ 75 mls/hr IVPB ASDIR [facility] Last Admin: 07/25/17 17:30 Dose: 75 mls/hr Potassium Chloride (Potassium Chloride 10 Meq Premix Ivpb -) 10 meq in 100 mls @ 100 mls/hr IVPB Q60M [facility] Stop: 07/26/17 12:29 Last Admin: 07/26/17 12:08 Dose: 100 mls/hr Insulin Aspart (Novolog Vial Sliding Scale -) 1 vial SQ Q4HPO PAULINE PRN Reason: Protocol Last Admin: 07/26/17 11:05 Dose: 2 units Insulin Detemir (Levemir Vial) 20 units SQ HS [facility] Last Admin: 07/25/17 21:32 Dose: 20 units Labetalol HCl (Normodyne Injection -) 10 mg IVPUSH Q4H PRN PRN Reason: HYPERTENSION Last Admin: 07/22/17 09:05 Dose: 10 mg Sodium Bicarbonate (Sodium Bicarbonate -) 1,300 mg PO TID [facility] Last Admin: 07/26/17 05:33 Dose: 1,300 mg Physical Exam Vital Signs Temperature 98 F 07/26/17 10:00 Pulse Rate 66 07/26/17 10:29 Respiratory Rate 30 H 07/26/17 12:25 Blood Pressure 114/60 07/26/17 12:00 O2 Sat by Pulse Oximetry (%) 100 07/26/17 10:29 Constitutional: Yes: Well Nourished, No Distress, Calm Eyes: Yes: PERRL, Other (R Upward Lat Gaze.) HENT: Yes: WNL, Atraumatic, Normocephalic Neck: Yes: WNL, Supple, Trachea Midline Cardiovascular: Yes: WNL, Regular Rate and Rhythm Respiratory: Yes: Diminished, Mechanically Ventilated, Wheezes Gastrointestinal: Yes: Abdomen, Obese, Distention, Hyperactive Bowel Sounds ...Rectal Exam: Yes: Deferred Renal/: Yes: Rocha Present Breast(s): Yes: WNL Extremities: Yes: Other (Clubbed Fingers.) Edema: Yes Edema: LLE: 1+, RLE: 1+ Peripheral Pulses WNL: Yes Integumentary: Yes: WNL Neurological: No facial droop, not responding to pain, not gagging on suction, R pupil 2mm --> 1mm, no spontaneous movement, R foot myoclonic twitching noted CBCD WBC 13.1 K/mm3 (4.0-10.0) H 07/26/17 06:00 RBC 2.76 M/mm3 (4.00-5.60) L 07/26/17 06:00 Hgb 7.6 GM/dL (11.7-16.9) L 07/26/17 06:00 Hct 23.4 % (35.4-49) L 07/26/17 06:00 MCV 84.8 fl (80-96) 07/26/17 06:00 MCHC 32.7 g/dl (32.0-35.9) 07/26/17 06:00 RDW 17.8 % (11.9-15.9) H 07/26/17 06:00 Plt Count 140 K/MM3 (134-434) 07/26/17 06:00 MPV 9.5 fl (7.5-11.1) 07/26/17 06:00 CMP Sodium 134 mmol/L (136-145) L 07/26/17 06:00 Potassium 2.9 mmol/L (3.5-5.1) L* 07/26/17 06:00 Chloride 102 mmol/L (98-107) 07/26/17 06:00 Carbon Dioxide 9 mmol/L (21-32) L 07/26/17 06:00 Anion Gap 23 (8-16) H 07/26/17 06:00 BUN 96 mg/dL (7-18) H 07/26/17 06:00 Creatinine 5.7 mg/dL (0.7-1.3) H 07/26/17 06:00 Creat Clearance w eGFR 11.24 (>60) 07/25/17 05:55 Calcium 7.0 mg/dL (8.5-10.1) L 07/26/17 06:00 Total Bilirubin 0.6 mg/dL (0.2-1.0) 07/25/17 05:55 AST 42 U/L (15-37) H D 07/25/17 05:55 ALT 74 U/L (12-78) D 07/25/17 05:55 Alkaline Phosphatase 146 U/L (45-117) H 07/25/17 05:55 Total Protein 4.9 g/dl (6.4-8.2) L 07/25/17 05:55 Albumin 1.4 g/dl (3.4-5.0) L 07/25/17 05:55 CT head X2 as above Plan: 56 y/o man w/ HTN, HL, DM, CKD, HIV on HAART, EF 49.5%, BIBA for SOB. Reportedly had been experiencing worsening SOB & SAMUELS w/ assoc wheezing for several days prior to admission. While in route developed further respiratory distress and in ER had agonal breathing and unresponsive. No pulse noted on stretcher transferand chest compressions were initiated. The Pt was resuscitated per ACLS protocol for approximately 5 minutes according to note, receiving epi x 2, bicarb x 2. Pt was intubated and placed on ventilator and given nebulizers and steroids. Pt admitted to the ICU s/p Cardiac Arrest and respiratory failure. The patient has been on propofol but having myoclonic twitches especially in right foot which have improved with Klonipin Given his history, this was likely myoclonic jerks 2/2 to anoxic brain injury and would not require AEDS Getting ICU care since admission klonipin 1mg twice daily added and subsided, no longer on Klonipin Has been on Mechanical ventilation, not able to be weaned as any attempt at sedation reduction led to tachypnea Initial CT head with cerebral edema noted and loss of balderas white differentiation Repeat CT with cortical sulci more visible and less edema, though evidence of anoxic brain injury in basal ganglia EEG confirmed patient with brain activity, mix of delta and theta, consistent with encephalopathy Spoke with daughter extensively recently regarding lack of clinical changes this week Family to decide on goals of care, palliative has been involved, still undecided Possibly would require trach, vent, peg vs. compassionate extubation No significant clinical improvement thus far Spoke to nurse and ICU attending Critical Care Time 35 mins
[2017-07-26] MEDS: PROPOFOL 1,000,000 MCG/100 ML VIAL IVPB SCH ×2 (13:42→20:00)
[2017-07-26] MEDS ORDERED: INSULIN (NOVOLOG) ASPART 100 UNITS/ML 10ML VIAL ONE (14:12)
--- NOTE | 2017-07-26 15:37 | PN ---
Progress Note, Physician History of Present Illness: Pt seen and examined at bedside. No new events. - Current Medication List Current Medications: Active Medications Acetaminophen (Tylenol Oral Solution -) 650 mg PO Q6H PRN PRN Reason: FEVER OR PAIN Last Admin: 07/24/17 21:12 Dose: 650 mg Artificial Tears (Artificial Tears) 1 drop OU BID PRN PRN Reason: DRY EYES Carvedilol (Coreg -) 25 mg PO BID [facility] Last Admin: 07/26/17 09:29 Dose: 25 mg Fentanyl (Sublimaze Injection -) 75 mcg IVPUSH Q1H PRN PRN Reason: AGITATION Stop: 07/27/17 10:44 Hydralazine HCl (Apresoline -) 25 mg PO TID [facility] Last Admin: 07/26/17 13:42 Dose: 25 mg Propofol (Diprivan -) 1,000,000 mcg in 100 mls @ 2.807 mls/hr IVPB TITR PAULINE; 5 MCG/KG/MIN PRN Reason: Protocol Last Admin: 07/26/17 13:42 Dose: 50 mcg/kg/min, 28.066 mls/hr Sodium Bicarbonate 75 meq/ (Sodium Chloride) 1,075 mls @ 75 mls/hr IVPB ASDIR PAULINE Last Admin: 07/25/17 17:30 Dose: 75 mls/hr Insulin Aspart (Novolog Vial Sliding Scale -) 1 vial SQ Q4HPO PAULINE PRN Reason: Protocol Last Admin: 07/26/17 14:18 Dose: 2 units Insulin Detemir (Levemir Vial) 20 units SQ HS [facility]IL[facility] Last Admin: 07/25/17 21:32 Dose: 20 units Labetalol HCl (Normodyne Injection -) 10 mg IVPUSH Q4H PRN PRN Reason: HYPERTENSION Last Admin: 07/22/17 09:05 Dose: 10 mg Sodium Bicarbonate (Sodium Bicarbonate -) 1,300 mg PO TID [facility] Last Admin: 07/26/17 14:18 Dose: 1,300 mg - Objective Vital Signs: Vital Signs Temperature 98 F 07/26/17 10:00 Pulse Rate 66 07/26/17 10:29 Respiratory Rate 30 H 07/26/17 15:00 Blood Pressure 102/53 07/26/17 14:00 O2 Sat by Pulse Oximetry (%) 100 07/26/17 10:29 Constitutional: Yes: Calm Eyes: Yes: Conjunctiva Clear Cardiovascular: Yes: S1, S2 Respiratory: Yes: Mechanically Ventilated Gastrointestinal: Yes: Soft Musculoskeletal: Yes: Muscle Weakness Edema: Yes Neurological: Yes: Lethargy Labs: CBC, BMP 07/26/17 06:00 07/26/17 06:00 INR, PTT INR 1.18 (0.82-1.09) H 07/06/17 05:00 Problem List - Problems (1) FLORECITA (acute kidney injury) Code(s): N17.9 - ACUTE KIDNEY FAILURE, UNSPECIFIED (2) CHF (congestive heart failure) Code(s): I50.9 - HEART FAILURE, UNSPECIFIED Qualifiers: Congestive heart failure type: unspecified congestive heart failure type Congestive heart failure chronicity: unspecified congestive heart failure chronicity Qualified Code(s): I50.9 - Heart failure, unspecified (3) Cardiopulmonary arrest with successful resuscitation Code(s): I46.9 - CARDIAC ARREST, CAUSE UNSPECIFIED (4) Chronic kidney disease Code(s): N18.9 - CHRONIC KIDNEY DISEASE, UNSPECIFIED (5) Hypertension Code(s): I10 - ESSENTIAL (PRIMARY) HYPERTENSION (6) Chronic kidney disease Code(s): N18.9 - CHRONIC KIDNEY DISEASE, UNSPECIFIED Assessment/Plan Current Medications Generic Name Dose Route Start Last Admin Trade Name Freq PRN Reason Stop Dose Admin Acetaminophen 650 mg 07/14/17 16:02 07/24/17 21:12 Tylenol Oral Solution - PO 650 mg Q6H PRN Administration FEVER OR PAIN Artificial Tears 1 drop 07/12/17 15:20 Artificial Tears OU BID PRN DRY EYES Carvedilol 25 mg 07/18/17 22:00 07/25/17 10:00 Coreg - PO 25 mg BID PAULINE Administration Hydralazine HCl 25 mg 07/22/17 14:00 07/25/17 14:52 Apresoline - PO 25 mg TID PAULINE Administration Propofol 1,000,000 mcg in 100 mls @ 2.807 mls/hr 07/10/17 14:00 07/25/17 13: 05 Diprivan - IVPB 50 mcg/kg/min TITR PAULINE 28.066 mls/hr Protocol Administration 5 MCG/KG/MIN Sodium Bicarbonate 50 meq/ 1,050 mls @ 75 mls/hr 07/23/17 19:15 12/16/17 00: 30 Sodium Chloride IVPB 75 mls/hr Q14H PAULINE Administration Insulin Aspart 1 vial 07/24/17 20:16 07/25/17 14:53 Novolog Vial Sliding Scale - SQ 6 units Q4HPO PAULINE Administration Protocol Insulin Detemir 20 units 07/24/17 23:12 Levemir Vial SQ HS PAULINE Labetalol HCl 10 mg 07/09/17 11:12 07/22/17 09:05 Normodyne Injection - IVPUSH 10 mg Q4H PRN Administration HYPERTENSION Sodium Bicarbonate 1,300 mg 07/21/17 22:00 07/25/17 14:59 Sodium Bicarbonate - PO 1,300 mg TID PAULINE Administration Impression 1. FLORECITA 2. CKD 3. cardiac arrest 4. CHF 5. HIV 6. hypomagnesemia 7. anoxic brain injury 8. anemia 9. hyperglycemia 10. HTN 11. acidosis 12. DM/DKA 13. resp failure requiring intubation Plan - renal function worsening - cont supportive care - family do not want hd therapy - replace potassium - cont bicarb with fluids - vent support - discussed with ICU team - monitor BP - likely ATN from hypotension during arrest - cont to monitor urine output - prognosis poor
[2017-07-26] MEDS: SODIUM BICARBONATE 8.4% - 75 MEQ in SODIUM CHLORIDE 0.45% 1,000 ML IVPB SCH (20:00)
--- NOTE | 2017-07-26 21:42 | PN ---
Progress Note, Physician History of Present Illness: Pt remains intubated Pt w/ poor prognosis - Current Medication List Current Medications: Active Medications Acetaminophen (Tylenol Oral Solution -) 650 mg PO Q6H PRN PRN Reason: FEVER OR PAIN Last Admin: 07/24/17 21:12 Dose: 650 mg Artificial Tears (Artificial Tears) 1 drop OU BID PRN PRN Reason: DRY EYES Carvedilol (Coreg -) 25 mg PO BID [facility] Last Admin: 07/26/17 09:29 Dose: 25 mg Fentanyl (Sublimaze Injection -) 75 mcg IVPUSH Q1H PRN PRN Reason: AGITATION Stop: 07/27/17 10:44 Hydralazine HCl (Apresoline -) 25 mg PO TID [facility] Last Admin: 07/26/17 13:42 Dose: 25 mg Propofol (Diprivan -) 1,000,000 mcg in 100 mls @ 2.807 mls/hr IVPB TITR PAULINE; 5 MCG/KG/MIN PRN Reason: Protocol Last Admin: 07/26/17 13:42 Dose: 50 mcg/kg/min, 28.066 mls/hr Sodium Bicarbonate 75 meq/ (Sodium Chloride) 1,075 mls @ 75 mls/hr IVPB ASDIR PAULINE Last Admin: 07/25/17 17:30 Dose: 75 mls/hr Insulin Aspart (Novolog Vial Sliding Scale -) 1 vial SQ Q4HPO PAULINE PRN Reason: Protocol Last Admin: 07/26/17 17:39 Dose: 2 units Insulin Detemir (Levemir Vial) 20 units SQ HS PA[facility]INE Last Admin: 07/25/17 21:32 Dose: 20 units Labetalol HCl (Normodyne Injection -) 10 mg IVPUSH Q4H PRN PRN Reason: HYPERTENSION Last Admin: 07/22/17 09:05 Dose: 10 mg Sodium Bicarbonate (Sodium Bicarbonate -) 1,300 mg PO TID [facility] Last Admin: 07/26/17 14:18 Dose: 1,300 mg - Objective Vital Signs: Vital Signs Temperature 98.2 F 07/26/17 16:00 Pulse Rate 69 07/26/17 20:00 Respiratory Rate 24 07/26/17 21:21 Blood Pressure 104/50 07/26/17 20:00 O2 Sat by Pulse Oximetry (%) 100 07/26/17 21:19 HENT: Yes: WNL Neck: Yes: WNL, Supple Cardiovascular: Yes: WNL, Regular Rate and Rhythm Respiratory: Yes: WNL, Regular, CTA Bilaterally Gastrointestinal: Yes: WNL, Normal Bowel Sounds Labs: CBC, BMP 07/26/17 06:00 07/26/17 06:00 INR, PTT INR 1.18 (0.82-1.09) H 07/06/17 05:00 Problem List - Problems (1) Respiratory failure Assessment/Plan: Poor prognosis and condition is terminal Cont nebulizers Awaiting family decision about terminal weaning/terminal extubation Code(s): J96.90 - RESPIRATORY FAILURE, UNSP, UNSP W HYPOXIA OR HYPERCAPNIA (2) Cardiopulmonary arrest with successful resuscitation Assessment/Plan: Pt remains intubated w/ poor prognosis Pt w/ anoxic brain injury/cerebral edema Code(s): I46.9 - CARDIAC ARREST, CAUSE UNSPECIFIED (3) Uncontrolled diabetes mellitus Assessment/Plan: Cont sliding scale w/ coverage Code(s): E11.65 - TYPE 2 DIABETES MELLITUS WITH HYPERGLYCEMIA (4) Acute on chronic diastolic CHF (congestive heart failure) Assessment/Plan: Euvolemic Code(s): I50.33 - ACUTE ON CHRONIC DIASTOLIC (CONGESTIVE) HEART FAILURE (5) Anemia Code(s): D64.9 - ANEMIA, UNSPECIFIED
[2017-07-26] MEDS: INSULIN DETEMIR 100 UNITS/ML MDV SQ SCH (22:20)
[2017-07-27] MEDS: INSULIN SLIDING SCALE (NOVOLOG) 1 VIAL SQ SCH ×5 (01:16→17:17)
[2017-07-27] MEDS: hydrALAZINE HCL 25 MG TABLET (FP) PO SCH ×2 (06:08→13:26)
[2017-07-27] MEDS: SODIUM BICARBONATE 650 MG TABLET PO SCH ×2 (06:08→13:26)
[2017-07-27] MEDS ORDERED: INSULIN (NOVOLOG MIX 70/30) 100 UNITS/ML MDV SQ ONE (06:12)
[2017-07-27 06:34] LABS: MCH 27.8 pg (25.7-33.7); MCHC 32.8 g/dl (32.0-35.9); MEAN CELL VOLUME 84.8 fl (80-96); MEAN PLT VOLUME 9.2 fl (7.5-11.1); PLATELET COUNT 132 K/MM3 (134-434); RDW 18.1 % (11.9-15.9); WHITE BLOOD COUNT 12.5 K/mm3 (4.0-10.0)
[2017-07-27 07:06] LABS: ALBUMIN 1.3 g/dl (3.4-5.0); ANION GAP 23 (8-16); CO2 8 mmol/L (21-32); GLUCOSE,RANDOM 255 mg/dL (74-106)
[2017-07-27 07:10] LABS: ALK PHOS 157 U/L (45-117); BILIRUBIN,TOTAL 0.6 mg/dL (0.2-1.0); CREATININE 5.7 mg/dL (0.7-1.3); SGOT/AST 28 U/L (15-37); SGPT/ALT 45 U/L (12-78)
[2017-07-27 07:14] LABS: CALCIUM 6.3 mg/dL (8.5-10.1)
[2017-07-27] MEDS ORDERED: POTASSIUM CHLORIDE ORAL LIQUID 20 MEQ/15 ML PEG ONE (09:00)
[2017-07-27] MEDS: CARVEDILOL 25 MG TABLET (FP) PO SCH (09:02)
[2017-07-27] MEDS: KCL 10 MEQ IVPB 10 MEQ/100 ML INFUS.BAG IVPB SCH ×3 (09:30→11:33)
[2017-07-27] MEDS ORDERED: HEMOQUE TEST 1 EACH EACH ONE (09:53)
--- NOTE | 2017-07-27 09:58 | PN ---
Progress Note (short form) - Note Progress Note: Neurology History of Present Illness: Mr. Welch is a 56 y/o man w/ HTN, HL, DM, CKD, HIV on HAART, EF 49.5%, BIBA for SOB. Reportedly had been experiencing worsening SOB & SAMUELS w/ assoc wheezing for several days prior to admission. While in route developed further respiratory distress and in ER had agonal breathing and unresponsive. No pulse noted on stretcher transferand chest compressions were initiated. The Pt was resuscitated per ACLS protocol for approximately 5 minutes according to note, receiving epi x 2, bicarb x 2. Pt was intubated and placed on ventilator and given nebulizers and steroids. Pt admitted to the ICU s/p Cardiac Arrest and respiratory failure. The patient has been on propofol but having myoclonic twitches especially in right foot. Given his history, this is likely myoclonic jerks 2/2 to anoxic brain injury. Klonipin was started, twitching improved and not visible at this time, Klonipin has been discontinued. There is minimal pupil contriction from 3mm to 2mm and therefore does not meet criteria for brain . However, only minimal brainstem activity and no significant improvement thus far. EEG showed mix of theta and beta activity, consistent with encephalopathy. Again, not brain . CT head completed and showed cerebral edema, repeated and showed improved cerebral edema likely due to steroids given. Attempts to wean propofol led to tachycardia and tachypnea. Awaiting family decision on plan for care. Clinically without signficiant improvement. Attempts to taper sedation have persistently led to tachypnea. Family consider compassionate extubation but no official decision has been made. Prognosis is poor as documented and at minimum would require trach, vent, peg. Spoke to nurse and still no significant improvement after 3 weeks. Active Medications Acetaminophen (Tylenol Oral Solution -) 650 mg PO Q6H PRN PRN Reason: FEVER OR PAIN Last Admin: 07/24/17 21:12 Dose: 650 mg Artificial Tears (Artificial Tears) 1 drop OU BID PRN PRN Reason: DRY EYES Carvedilol (Coreg -) 25 mg PO BID PAULINE Last Admin: 07/27/17 09:02 Dose: 25 mg Fentanyl (Sublimaze Injection -) 75 mcg IVPUSH Q1H PRN PRN Reason: AGITATION Stop: 07/27/17 10:44 Last Admin: 07/27/17 08:45 Dose: 75 mcg Hydralazine HCl (Apresoline -) 25 mg PO TID PAULINE Last Admin: 07/27/17 06:08 Dose: 25 mg Propofol (Diprivan -) 1,000,000 mcg in 100 mls @ 2.807 mls/hr IVPB TITR PAULINE; 5 MCG/KG/MIN PRN Reason: Protocol Last Admin: 07/26/17 20:00 Dose: 50 mcg/kg/min, 28.066 mls/hr Sodium Bicarbonate 75 meq/ (Sodium Chloride) 1,075 mls @ 75 mls/hr IVPB ASDIR PAULINE Last Admin: 07/26/17 20:00 Dose: 75 mls/hr Potassium Chloride (Potassium Chloride 10 Meq Premix Ivpb -) 10 meq in 100 mls @ 100 mls/hr IVPB Q60M [facility] Stop: 07/27/17 11:59 Last Admin: 07/27/17 09:30 Dose: 100 mls/hr Insulin Aspart (Novolog Vial Sliding Scale -) 1 vial SQ Q4HPO PAULINE PRN Reason: Protocol Last Admin: 07/27/17 06:08 Dose: 4 units Insulin Detemir (Levemir Vial) 20 units SQ HS PAULINE Last Admin: 07/26/17 22:20 Dose: 20 units Labetalol HCl (Normodyne Injection -) 10 mg IVPUSH Q4H PRN PRN Reason: HYPERTENSION Last Admin: 07/22/17 09:05 Dose: 10 mg Sodium Bicarbonate (Sodium Bicarbonate -) 1,300 mg PO TID [facility] Last Admin: 07/27/17 06:08 Dose: 1,300 mg Physical Exam Vital Signs Period Temp Pulse Resp BP Sys/Del Castillo Pulse Ox Last 24 Hr 97.7 F-98.7 F 66-86 24-32 98-147/50-63 98-100 Constitutional: Yes: Well Nourished, No Distress, Calm Eyes: Yes: PERRL, Other (R Upward Lat Gaze.) HENT: Yes: WNL, Atraumatic, Normocephalic Neck: Yes: WNL, Supple, Trachea Midline Cardiovascular: Yes: WNL, Regular Rate and Rhythm Respiratory: Yes: Diminished, Mechanically Ventilated, Wheezes Gastrointestinal: Yes: Abdomen, Obese, Distention, Hyperactive Bowel Sounds ...Rectal Exam: Yes: Deferred Renal/: Yes: Rocha Present Breast(s): Yes: WNL Extremities: Yes: Other (Clubbed Fingers.) Edema: Yes Edema: LLE: 1+, RLE: 1+ Peripheral Pulses WNL: Yes Integumentary: Yes: WNL Neurological: No facial droop, not responding to pain, not gagging on suction, R pupil 2mm --> 1mm, no spontaneous movement, R foot myoclonic twitching noted CBCD WBC 12.5 K/mm3 (4.0-10.0) H 07/27/17 06:15 RBC 2.57 M/mm3 (4.00-5.60) L 07/27/17 06:15 Hgb 7.1 GM/dL (11.7-16.9) L 07/27/17 06:15 Hct 21.8 % (35.4-49) L 07/27/17 06:15 MCV 84.8 fl (80-96) 07/27/17 06:15 MCHC 32.8 g/dl (32.0-35.9) 07/27/17 06:15 RDW 18.1 % (11.9-15.9) H 07/27/17 06:15 Plt Count 132 K/MM3 (134-434) L 07/27/17 06:15 MPV 9.2 fl (7.5-11.1) 07/27/17 06:15 CMP Sodium 129 mmol/L (136-145) L 07/27/17 06:15 Potassium 3.0 mmol/L (3.5-5.1) L 07/27/17 06:15 Chloride 98 mmol/L (98-107) 07/27/17 06:15 Carbon Dioxide 8 mmol/L (21-32) L 07/27/17 06:15 Anion Gap 23 (8-16) H 07/27/17 06:15 BUN 97 mg/dL (7-18) H 07/27/17 06:15 Creatinine 5.7 mg/dL (0.7-1.3) H 07/27/17 06:15 Creat Clearance w eGFR 10.34 (>60) 07/27/17 06:15 Calcium 6.3 mg/dL (8.5-10.1) L* 07/27/17 06:15 Total Bilirubin 0.6 mg/dL (0.2-1.0) 07/27/17 06:15 AST 28 U/L (15-37) D 07/27/17 06:15 ALT 45 U/L (12-78) D 07/27/17 06:15 Alkaline Phosphatase 157 U/L (45-117) H 07/27/17 06:15 Total Protein 5.0 g/dl (6.4-8.2) L 07/27/17 06:15 Albumin 1.3 g/dl (3.4-5.0) L 07/27/17 06:15 CT head X2 as above EEG as above Plan: 56 y/o man w/ HTN, HL, DM, CKD, HIV on HAART, EF 49.5%, BIBA for SOB. Reportedly had been experiencing worsening SOB & SAMUELS w/ assoc wheezing for several days prior to admission. While in route developed further respiratory distress and in ER had agonal breathing and unresponsive. No pulse noted on stretcher transferand chest compressions were initiated. The Pt was resuscitated per ACLS protocol for approximately 5 minutes according to note, receiving epi x 2, bicarb x 2. Pt was intubated and placed on ventilator and given nebulizers and steroids. Pt admitted to the ICU s/p Cardiac Arrest and respiratory failure. The patient has been on propofol but having myoclonic twitches especially in right foot which have improved with Klonipin Given his history, this was likely myoclonic jerks 2/2 to anoxic brain injury and would not require AEDS Getting ICU care since admission klonipin 1mg twice daily added and subsided, no longer on Klonipin Has been on Mechanical ventilation, not able to be weaned as any attempt at sedation reduction led to tachypnea Initial CT head with cerebral edema noted and loss of balderas white differentiation Repeat CT with cortical sulci more visible and less edema, though evidence of anoxic brain injury in basal ganglia EEG confirmed patient with brain activity, mix of delta and theta, consistent with encephalopathy Family to decide on goals of care, palliative has been involved, still undecided Family has been updated multiple times and no significant changes since Possibly would require trach, vent, peg vs. compassionate extubation Awaiting decision, has been more than three weeks now Spoke to nurse Critical Care Time 35 mins
--- NOTE | 2017-07-27 10:54 | PN ---
Progress Note, Physician Chief Complaint: PEA arrest, anoxic brain injury History of Present Illness: not responsive, intubatefd - Current Medication List Current Medications: Active Medications Acetaminophen (Tylenol Oral Solution -) 650 mg PO Q6H PRN PRN Reason: FEVER OR PAIN Last Admin: 07/24/17 21:12 Dose: 650 mg Artificial Tears (Artificial Tears) 1 drop OU BID PRN PRN Reason: DRY EYES Carvedilol (Coreg -) 25 mg PO BID [facility] Last Admin: 07/27/17 09:02 Dose: 25 mg Hydralazine HCl (Apresoline -) 25 mg PO TID [facility] Last Admin: 07/27/17 06:08 Dose: 25 mg Propofol (Diprivan -) 1,000,000 mcg in 100 mls @ 2.807 mls/hr IVPB TITR PAULINE; 5 MCG/KG/MIN PRN Reason: Protocol Last Admin: 07/26/17 20:00 Dose: 50 mcg/kg/min, 28.066 mls/hr Sodium Bicarbonate 75 meq/ (Sodium Chloride) 1,075 mls @ 75 mls/hr IVPB ASDIR [facility] Last Admin: 07/26/17 20:00 Dose: 75 mls/hr Potassium Chloride (Potassium Chloride 10 Meq Premix Ivpb -) 10 meq in 100 mls @ 100 mls/hr IVPB Q60M [facility] Stop: 07/27/17 11:59 Last Admin: 07/27/17 10:42 Dose: 100 mls/hr Insulin Aspart (Novolog Vial Sliding Scale -) 1 vial SQ Q4HPO PAULINE PRN Reason: Protocol Last Admin: 07/27/17 06:08 Dose: 4 units Insulin Detemir (Levemir Vial) 20 units SQ HS [facility] Last Admin: 07/26/17 22:20 Dose: 20 units Labetalol HCl (Normodyne Injection -) 10 mg IVPUSH Q4H PRN PRN Reason: HYPERTENSION Last Admin: 07/22/17 09:05 Dose: 10 mg Sodium Bicarbonate (Sodium Bicarbonate -) 1,300 mg PO TID [facility] Last Admin: 07/27/17 06:08 Dose: 1,300 mg - Objective Vital Signs: Vital Signs Temperature 98.7 F 07/27/17 06:00 Pulse Rate 77 07/27/17 10:16 Respiratory Rate 30 H 07/27/17 10:16 Blood Pressure 121/57 07/27/17 08:00 O2 Sat by Pulse Oximetry (%) 100 07/27/17 10:16 Constitutional: Yes: Well Nourished, No Distress, Calm Cardiovascular: Yes: Regular Rate and Rhythm, S1, S2. No: Gallop, Murmur Respiratory: Yes: Regular, CTA Bilaterally (anteriorly). No: Accessory Muscle Use, Rales, Wheezes Extremities: No: Cold Edema: Yes (1+ (SCDs)) Neurological: No: Alert, Oriented, Seizure Psychiatric: No: Agitated Labs: CBC, BMP 07/27/17 06:15 07/27/17 06:15 INR, PTT INR 1.18 (0.82-1.09) H 07/06/17 05:00 - ....Imaging EKG: Other (tele: NSR) Assessment/Plan MPI 05/26: no ischemia, EF 33% (global Echo 06/2017: nl lv size. LV fn mod-sev reduced (global). nl rv size/fn. 1+ mac/mr/tr. rvsp 30-40. + pleural effusion. Echo 05/26 (): mod LVE, mild global LV hypo; nl RV; mild LAE; mild MR Echo 12/24: nl LV and RV, nl valves est cct 35 mins a/p: 56 yo smoker with h/o mild lv dysfunction, htn, hl, ckd, hiv, dm p/w progressive sob and subsequent PEA arrest with EMS (s/p resuscitation). acute hypoxic resp failure, acute on chronic syst CHF, NSTEMI, cardiac arrest ( PEA): -initially with marked chf on cxr in setting of several days of worsening sob -suspect PEA due to severe chf decompensation with acute hypoxia -suspected anoxic brain injury now, neuro following -cxr w/o chf, no clinical chf, did not respond to brief trial of lasix gtt -NSTEMI trop trend here with peak 1.3 (upar-npy-gtmd pattern) -ECG initially here with borderline ST changes for ischemia (likely secondary)-- ? underlying CAD with balanced ischemia on nuclear. -repeat echo here with worsened systolic function -ischemia w/u on hold due to poor neurological function/poor prognosis -cont beta blockade. added hydralazine 07/21. -no NORRIS/ARB given FLORECITA -remains without suspected volume/chf--no diuresis for now -may need trach vs compassionate wean from vent-->awaiting decision from family FLORECITA on CKD, hypernatremia: -baseline creat here 2.8 in 05/26. initially 2.4 on presentation to ER, up to 6s here. -suspect hypoperfusion/atn as cause -holding lasix -renal fxn worsening progressibvely HTN: -07/16 bp elevated at times, increase coreg to 12.5 bid - 07/17: bp labile today on higher dose of coreg. will con't to monitor. - 07/18: bp stable today, but running high. will uptitrate coreg. - 07/21: still with suboptimal bp control. Will add hydralazine. - 07/22: still with suboptimal bp control. Will increase hydralazine. - bp controlled presently, same meds HIV/Hep C: -per ID team anemia, gib: -likely had ugib -hgb improved s/p prbcs, now trending down again--? recurrent bleeding. -monitor labs, consider transfusion if hgb <8, if in line with family's goals of care decisions--per crit care ongoing discussions hypoalbuminemia, malnutrition: -3rd spacing LEs, mild at present -ok cont IVF as doing -TPN/GI feeding tube decisions await family determination of goals of care est time in review of data, examining pt, and formulating mgmt plan of pt's critical problems = 35 min
[2017-07-27] MEDS ORDERED: INSULIN (NOVOLOG) ASPART 100 UNITS/ML 10ML VIAL ONE (10:57)
[2017-07-27] MEDS: PROPOFOL 1,000,000 MCG/100 ML VIAL IVPB SCH ×2 (13:26→17:38)
--- NOTE | 2017-07-27 14:26 | PN ---
Progress Note, Physician History of Present Illness: Pt seen and examined at bedside. He remains in the ICU. He remains intubated. - Current Medication List Current Medications: Active Medications Acetaminophen (Tylenol Oral Solution -) 650 mg PO Q6H PRN PRN Reason: FEVER OR PAIN Last Admin: 07/24/17 21:12 Dose: 650 mg Artificial Tears (Artificial Tears) 1 drop OU BID PRN PRN Reason: DRY EYES Carvedilol (Coreg -) 25 mg PO BID [facility] Last Admin: 07/27/17 09:02 Dose: 25 mg Hydralazine HCl (Apresoline -) 25 mg PO TID [facility] Last Admin: 07/27/17 13:26 Dose: 25 mg Propofol (Diprivan -) 1,000,000 mcg in 100 mls @ 2.807 mls/hr IVPB TITR PAULINE; 5 MCG/KG/MIN PRN Reason: Protocol Last Admin: 07/27/17 13:26 Dose: 50 mcg/kg/min, 28.066 mls/hr Sodium Bicarbonate 75 meq/ (Sodium Chloride) 1,075 mls @ 75 mls/hr IVPB ASDIR [facility] Last Admin: 07/26/17 20:00 Dose: 75 mls/hr Insulin Aspart (Novolog Vial Sliding Scale -) 1 vial SQ Q4HPO PAULINE PRN Reason: Protocol Last Admin: 07/27/17 13:34 Dose: 4 units Insulin Detemir (Levemir Vial) 20 units SQ HS [facility] Last Admin: 07/26/17 22:20 Dose: 20 units Labetalol HCl (Normodyne Injection -) 10 mg IVPUSH Q4H PRN PRN Reason: HYPERTENSION Last Admin: 07/22/17 09:05 Dose: 10 mg Sodium Bicarbonate (Sodium Bicarbonate -) 1,300 mg PO TID [facility] Last Admin: 07/27/17 13:26 Dose: 1,300 mg - Objective Vital Signs: Vital Signs Temperature 98.5 F 07/27/17 10:00 Pulse Rate 80 07/27/17 12:00 Respiratory Rate 31 H 07/27/17 12:02 Blood Pressure 109/59 07/27/17 12:00 O2 Sat by Pulse Oximetry (%) 100 07/27/17 10:16 Constitutional: Yes: Calm HENT: Yes: Atraumatic Cardiovascular: Yes: S1, S2 Respiratory: Yes: Mechanically Ventilated Gastrointestinal: Yes: Soft Genitourinary: Yes: Rocha Present Musculoskeletal: Yes: Muscle Weakness Edema: Yes Edema: LLE: 1+, RLE: 1+ Neurological: Yes: Lethargy Labs: CBC, BMP 07/27/17 06:15 07/27/17 06:15 INR, PTT INR 1.18 (0.82-1.09) H 07/06/17 05:00 Problem List - Problems (1) FLORECITA (acute kidney injury) Code(s): N17.9 - ACUTE KIDNEY FAILURE, UNSPECIFIED (2) CHF (congestive heart failure) Code(s): I50.9 - HEART FAILURE, UNSPECIFIED Qualifiers: Congestive heart failure type: unspecified congestive heart failure type Congestive heart failure chronicity: unspecified congestive heart failure chronicity Qualified Code(s): I50.9 - Heart failure, unspecified (3) Cardiopulmonary arrest with successful resuscitation Code(s): I46.9 - CARDIAC ARREST, CAUSE UNSPECIFIED (4) Chronic kidney disease Code(s): N18.9 - CHRONIC KIDNEY DISEASE, UNSPECIFIED (5) Hypertension Code(s): I10 - ESSENTIAL (PRIMARY) HYPERTENSION (6) Chronic kidney disease Code(s): N18.9 - CHRONIC KIDNEY DISEASE, UNSPECIFIED Assessment/Plan Current Medications Generic Name Dose Route Start Last Admin Trade Name Freq PRN Reason Stop Dose Admin Acetaminophen 650 mg 07/14/17 16:02 07/24/17 21:12 Tylenol Oral Solution - PO 650 mg Q6H PRN Administration FEVER OR PAIN Artificial Tears 1 drop 07/12/17 15:20 Artificial Tears OU BID PRN DRY EYES Carvedilol 25 mg 07/18/17 22:00 07/27/17 09:02 Coreg - PO 25 mg BID PA[facility] Administration Hydralazine HCl 25 mg 07/22/17 14:00 07/27/17 13:26 Apresoline - PO 25 mg TID PAULINE Administration Propofol 1,000,000 mcg in 100 mls @ 2.807 mls/hr 07/10/17 14:00 07/27/17 13: 26 Diprivan - IVPB 50 mcg/kg/min TITR PAULINE 28.066 mls/hr Protocol Administration 5 MCG/KG/MIN Sodium Bicarbonate 75 meq/ 1,075 mls @ 75 mls/hr 07/25/17 16:24 07/26/17 20: 00 Sodium Chloride IVPB 75 mls/hr ASDIR PAULINE Administration Insulin Aspart 1 vial 07/24/17 20:16 07/27/17 13:34 Novolog Vial Sliding Scale - SQ 4 units Q4HPO PAULINE Administration Protocol Insulin Detemir 20 units 07/24/17 23:12 07/26/17 22:20 Levemir Vial SQ 20 units HS PA[facility]INE Administration Labetalol HCl 10 mg 07/09/17 11:12 07/22/17 09:05 Normodyne Injection - IVPUSH 10 mg Q4H PRN Administration HYPERTENSION Sodium Bicarbonate 1,300 mg 07/21/17 22:00 07/27/17 13:26 Sodium Bicarbonate - PO 1,300 mg TID PAULINE Administration Impression 1. FLORECITA 2. CKD 3. cardiac arrest 4. CHF 5. HIV 6. hypomagnesemia 7. anoxic brain injury 8. anemia 9. hyperglycemia 10. HTN 11. acidosis 12. DM/DKA 13. resp failure requiring intubation Plan - cont supportive care - family do not want HD - replace potassium - cont bicarb with fluids - vent support - cont to monitor urine output - prognosis poor
--- NOTE | 2017-07-27 14:44 | PN ---
Teaching Attending Note Name of Resident: Matthew Santillan ATTENDING PHYSICIAN STATEMENT I saw and evaluated the patient. I reviewed the resident's note and discussed the case with the resident. I agree with the resident's findings and plan as documented. SUBJECTIVE: Pt seen and examined in the ICU. Remains intubated, sedated, tachypneic. No fevers recorded. Daughter at bedside. OBJECTIVE: Last Vital Signs Temp Pulse Resp BP Pulse Ox 98.5 F 80 25 H 109/59 100 07/27/17 10:00 07/27/17 12:00 07/27/17 14:34 07/27/17 12:00 07/27/17 10:16 Intake & Output 07/24/17 07/25/17 07/26/17 07/27/17 23:59 23:59 23:59 23:59 Intake Total 4427.4 4094.3 4361.9 1800 Output Total 270 647 652 1978 Balance 4157.4 3544.3 4061.9 600 Weight 229 lb 1 oz 236 lb 4 oz 239 lb 2 oz 245 lb 6 oz Gen: intubated, sedated, tachypneic Heart: RRR Lung: bilateral rhonchi Abd: softly distended Ext: + edema CBC, BMP 07/27/17 06:15 07/27/17 06:15 Active Medications Acetaminophen (Tylenol Oral Solution -) 650 mg PO Q6H PRN PRN Reason: FEVER OR PAIN Last Admin: 07/24/17 21:12 Dose: 650 mg Artificial Tears (Artificial Tears) 1 drop OU BID PRN PRN Reason: DRY EYES Carvedilol (Coreg -) 25 mg PO BID [facility] Last Admin: 07/27/17 09:02 Dose: 25 mg Hydralazine HCl (Apresoline -) 25 mg PO TID [facility] Last Admin: 07/27/17 13:26 Dose: 25 mg Propofol (Diprivan -) 1,000,000 mcg in 100 mls @ 2.807 mls/hr IVPB TITR PAULINE; 5 MCG/KG/MIN PRN Reason: Protocol Last Admin: 07/27/17 13:26 Dose: 50 mcg/kg/min, 28.066 mls/hr Sodium Bicarbonate 75 meq/ (Sodium Chloride) 1,075 mls @ 75 mls/hr IVPB ASDIR [facility] Last Admin: 07/26/17 20:00 Dose: 75 mls/hr Insulin Aspart (Novolog Vial Sliding Scale -) 1 vial SQ Q4HPO PAULINE PRN Reason: Protocol Last Admin: 07/27/17 13:34 Dose: 4 units Insulin Detemir (Levemir Vial) 20 units SQ HS [facility] Last Admin: 07/26/17 22:20 Dose: 20 units Labetalol HCl (Normodyne Injection -) 10 mg IVPUSH Q4H PRN PRN Reason: HYPERTENSION Last Admin: 07/22/17 09:05 Dose: 10 mg Sodium Bicarbonate (Sodium Bicarbonate -) 1,300 mg PO TID [facility] Last Admin: 07/27/17 13:26 Dose: 1,300 mg ASSESSMENT AND PLAN: s/p Cardiopulmonary Arrest Likely Anoxic Brain Injury Acute on Chronic Systolic Heart Failure +Troponins Acute on Chronic Renal Failure Lactic Acidosis resolved HTN HIV Hep C Smoker - completed empiric antibiotics - monitor urine output, creatinine - replete lytes - daily sedation vacations to assess mental status - taper FiO2 to keep SpO2 >90% - not a candidate for weaning due to poor mental status - enteral feeds - DVT/GI prophylaxis - poor overall prognosis for meaningful recovery, daughter states that pt would not want to be kept alive without quality of life, awaiting decision from family critical care time spent in reviewing chart, evaluating patient and formulating plan 35 min
--- NOTE | 2017-07-27 14:59 | PN ---
Physical Exam: SUBJECTIVE: Family moving towards passionate extubation as patient's clinical status has not improved. OBJECTIVE: Vital Signs Period Temp Pulse Resp BP Sys/Del Castillo Pulse Ox Last 24 Hr 97.7 F-98.7 F 68-86 24-32 98-147/50-63 98-100 Exam: HEENT: PERRL, does not tract Pulm: coarse rhonchi bilateral, thick secretions CV: S1, S2 Abd: distended and soft Ext: WWP< +1-2 Le edema Neuro: withdrawals to noxious stimulation, not responsive to verbal Laboratory Results - last 24 hr 07/27/17 07/27/17 06:15 06:15 WBC 12.5 H RBC 2.57 L Hgb 7.1 L Hct 21.8 L MCV 84.8 MCH 27.8 MCHC 32.8 RDW 18.1 H Plt Count 132 L MPV 9.2 Sodium 129 L Potassium 3.0 L Chloride 98 Carbon Dioxide 8 L Anion Gap 23 H BUN 97 H Creatinine 5.7 H Creat Clearance w eGFR 10.34 Random Glucose 255 H D Calcium 6.3 L* Total Bilirubin 0.6 AST 28 D ALT 45 D Alkaline Phosphatase 157 H Total Protein 5.0 L Albumin 1.3 L Active Medications Generic Name Dose Route Start Last Admin Trade Name Freq PRN Reason Stop Dose Admin Acetaminophen 650 mg 07/14/17 16:02 07/24/17 21:12 Tylenol Oral Solution - PO 650 mg Q6H PRN Administration FEVER OR PAIN Artificial Tears 1 drop 07/12/17 15:20 Artificial Tears OU BID PRN DRY EYES Carvedilol 25 mg 07/18/17 22:00 07/27/17 09:02 Coreg - PO 25 mg BID [facility] Administration Hydralazine HCl 25 mg 07/22/17 14:00 07/27/17 13:26 Apresoline - PO 25 mg TID [facility] Administration Propofol 1,000,000 mcg in 100 mls @ 2.807 mls/hr 07/10/17 14:00 07/27/17 13: 26 Diprivan - IVPB 50 mcg/kg/min TITR [facility] 28.066 mls/hr Protocol Administration 5 MCG/KG/MIN Sodium Bicarbonate 75 meq/ 1,075 mls @ 75 mls/hr 07/25/17 16:24 07/26/17 20: 00 Sodium Chloride IVPB 75 mls/hr ASDIR [facility] Administration Insulin Aspart 1 vial 07/24/17 20:16 07/27/17 13:34 Novolog Vial Sliding Scale - SQ 4 units Q4HPO [facility] Administration Protocol Insulin Detemir 20 units 07/24/17 23:12 07/26/17 22:20 Levemir Vial SQ 20 units HS [facility] Administration Labetalol HCl 10 mg 07/09/17 11:12 07/22/17 09:05 Normodyne Injection - IVPUSH 10 mg Q4H PRN Administration HYPERTENSION Sodium Bicarbonate 1,300 mg 07/21/17 22:00 07/27/17 13:26 Sodium Bicarbonate - PO 1,300 mg TID [facility] Administration ASSESSMENT/PLAN: Pt is a 56 M w/ PMH HTN, HL, DM, CKD, and HIV on HAART who presented to ED with cardiopulmonary arrest. Pt is now intubated. Prior to arriving at the ED, pt had been complaining of wheezing and SOB. Patient coded in ED and ROSC achieved in 5 minutes. Clinical status not improving with clinical course not improving. Cardio: Cardiopulmonary arrest: RAVEN for at least 5 min. Tn peak at 1.33. Per Cardio, Tn is combination of demand & sepsis. Holding Lasix at this time. - Remains intubated, will terminally extubate today when family returns. - Will start morphine drip for pain control - Echo showed moderate-severe LV dysfunction Neuro: Anoxic brain injury. Neuro on board. 5 mins til ROSC. Holding klonopin. Per Radiologist Dr. Estrada, Head CT revealed loss of balderas/white junction, and sulcal effacement, but no sign of herniation. EEG abnormal. Holding sedation - Eyes open but only resposnive to noxious stimuli. ID HIV: HIV positive. Sees Dr. Vital as outpt. Resistant to several medications. holding meds Leukocytosis: not imrpoving -ID signed off Nephro -FLORECITA on CKD -Nephro on board -FLORECITA likely worsened by arrest -No need for HD at this time -Hold lasix for now Endocrine -DM. In DKA -Stopped insulin GTT as he is to be terminally extubated -keep BGM 140-180 FEN -on NS -Hypernatremia. Hypokalemia. Hypocalcemia. Repleting -Intubated sedated PPx -Hep SubQ Dispo -terminal extubation today. Visit type - Emergency Visit Emergency Visit: No - New Patient This patient is new to me today: No - Critical Care Critical Care patient: No - Discharge Referral Referred to [facility] No
[2017-07-27 16:10] LABS: ANION GAP 21 (8-16); CO2 10 mmol/L (21-32); CREATININE 5.7 mg/dL (0.7-1.3); GLUCOSE,RANDOM 243 mg/dL (74-106)
[2017-07-27 16:31] LABS: CALCIUM 6.5 mg/dL (8.5-10.1)
[2017-07-27] MEDS ORDERED: PROPOFOL 2,000,000 MCG/200 ML VIAL ONE (19:56)
[2017-07-27] MEDS ORDERED: MORPHINE 100 MG in SODIUM CHLORIDE 98 ML IVPB SCH (20:45)
--- NOTE | 2017-07-27 21:14 | PN ---
Progress Note (short form) - Note Progress Note: Patient was extubated at approximately 9.04pm.
--- NOTE | 2017-07-27 21:59 | PN ---
Progress Note, Physician History of Present Illness: Pt seen at 8pm and family at bedside - Current Medication List Current Medications: Active Medications Artificial Tears (Artificial Tears) 1 drop OU BID PRN PRN Reason: DRY EYES Morphine Sulfate 100 mg/ (Sodium Chloride) 100 mls @ 1 mls/hr IVPB TITR PAULINE; 1 MG/HR PRN Reason: Protocol Last Admin: 07/27/17 21:00 Dose: 1 mg/hr, 1 mls/hr - Objective Vital Signs: Vital Signs Temperature 98 F 07/27/17 16:00 Pulse Rate 83 07/27/17 21:29 Respiratory Rate 30 H 07/27/17 20:00 Blood Pressure 126/70 07/27/17 20:00 O2 Sat by Pulse Oximetry (%) 100 07/27/17 21:31 Constitutional: Yes: Well Nourished, Other ((+) ETT) Neck: Yes: WNL, Supple Cardiovascular: Yes: WNL, Regular Rate and Rhythm Respiratory: Yes: WNL, Regular, CTA Bilaterally Gastrointestinal: Yes: WNL, Normal Bowel Sounds, Soft Edema: Yes Labs: CBC, BMP 07/27/17 06:15 07/27/17 14:40 INR, PTT INR 1.18 (0.82-1.09) H 07/06/17 05:00 Problem List - Problems (1) Respiratory failure Assessment/Plan: Poor prognosis and condition is terminal Family at bedside and have agreed to terminal extubation Cont supportive care Code(s): J96.90 - RESPIRATORY FAILURE, UNSP, UNSP W HYPOXIA OR HYPERCAPNIA (2) Cardiopulmonary arrest with successful resuscitation Assessment/Plan: Pt remains intubated w/ poor prognosis Pt w/ anoxic brain injury/cerebral edema Code(s): I46.9 - CARDIAC ARREST, CAUSE UNSPECIFIED (3) Uncontrolled diabetes mellitus Assessment/Plan: Cont sliding scale w/ coverage Code(s): E11.65 - TYPE 2 DIABETES MELLITUS WITH HYPERGLYCEMIA (4) Acute on chronic diastolic CHF (congestive heart failure) Code(s): I50.33 - ACUTE ON CHRONIC DIASTOLIC (CONGESTIVE) HEART FAILURE
[2017-07-27] MEDS ORDERED: PROPOFOL 1,000,000 MCG/100 ML VIAL ONE (22:12)
[2017-07-28 04:31] VITALS: BP 99/47
[2017-07-28 05:45] VITALS: PULSE 49; TEMP 98.2
[2017-07-28] MEDS ORDERED: INSULIN (NOVOLOG MIX 70/30) 100 UNITS/ML MDV SQ ONE ×2 (06:55→07:01)
== END 2017-07-28 05:54 | disposition expired | DRG 207 ==
LOC: JER 00:31 → JERBED 02:17 → MERGE 02:17 → JICU 03:33
PROVIDERS: ADMIT Internal Medicine; ATTEND Internal Medicine
PROC: 5A1955Z Respiratory Ventilation, Greater than 96 Consecutive Hours (ICD-10-PCS; principal; 2017-07-05)
PROC: 0BH17EZ Insertion of Endotracheal Airway into Trachea, Via Natural or Artificial Opening (ICD-10-PCS; 2017-07-05)
PROC: 05HN33Z Insertion of Infusion Device into Left Internal Jugular Vein, Percutaneous Approach (ICD-10-PCS; 2017-07-05)
PROC: 03HY32Z Insertion of Monitoring Device into Upper Artery, Percutaneous Approach (ICD-10-PCS; 2017-07-05)
PROC: 4A133B1 Monitoring of Arterial Pressure, Peripheral, Percutaneous Approach (ICD-10-PCS; 2017-07-05)
PROC: 30233N1 Transfusion of Nonautologous Red Blood Cells into Peripheral Vein, Percutaneous Approach (ICD-10-PCS; 2017-07-10)
DX: J96.01 Acute respiratory failure with hypoxia (principal); I50.33 Acute on chronic diastolic (congestive) heart failure; B20 Human immunodeficiency virus [HIV] disease; I50.23 Acute on chronic systolic (congestive) heart failure; E11.10 Type 2 diabetes mellitus with ketoacidosis without coma; I21.4 Non-ST elevation (NSTEMI) myocardial infarction; R40.20 Unspecified coma; G93.6 Cerebral edema; N17.9 Acute kidney failure, unspecified; I13.0 Hypertensive heart and chronic kidney disease with heart failure and stage 1 through stage 4 chronic kidney disease, or unspecified chronic kidney disease; E87.2 Acidosis; G93.1 Anoxic brain damage, not elsewhere classified; E87.0 Hyperosmolality and hypernatremia; E46 Unspecified protein-calorie malnutrition; J96.90 Respiratory failure, unspecified, unspecified whether with hypoxia or hypercapnia; I46.9 Cardiac arrest, cause unspecified; E11.65 Type 2 diabetes mellitus with hyperglycemia; E11.22 Type 2 diabetes mellitus with diabetic chronic kidney disease; N18.9 Chronic kidney disease, unspecified; F17.210 Nicotine dependence, cigarettes, uncomplicated; E83.42 Hypomagnesemia; D64.9 Anemia, unspecified; D72.829 Elevated white blood cell count, unspecified; E87.6 Hypokalemia; E83.51 Hypocalcemia; Z79.4 Long term (current) use of insulin; E88.09 Other disorders of plasma-protein metabolism, not elsewhere classified; Z68.29 Body mass index [BMI] 29.0-29.9, adult; R00.0 Tachycardia, unspecified; E78.5 Hyperlipidemia, unspecified
CPT/HCPCS: 36415; 36430; 36600; 70450-TC; 71010-TC; 74000-TC; 76775-TC; 80048; 80053; 80076; 80200; 81003; 81015; 82271; 82375; 82436; 82550; 82553; 82803; 82947; 83050; 83605; 83735; 83880; 84100; 84133; 84300; 84484; 84540; 85025; 85027; 85610; 85730; 86316; 86850; 86900; 86901; 86922; 87040; 87070; 87077; 87081; 87086; 87186; 87205; 87305; 87328; 87329; 87427; 87449; 87493; 87899; 90670; 93005; 93010; 93306-TC; 93970-TC; 94002; 94640; 95816; 99285-25; G0480; J1644; P9038; P9058